=== PATIENT | female | born 1960 | race Caucasian/White ===

== ENCOUNTER 2017-12-04 13:47 | Inpatient (IN) ==
[2017-12-04] MEDS ORDERED: Aspirin 81 MG TAB.CHEW PO ONE (13:49)
[2017-12-04] MEDS ORDERED: Nitroglycerin 0.4 MG TAB.SUBL SL PRN (13:54)
--- NOTE | 2017-12-04 14:06 | Emergency Department Note ---
Disposition Clinical Impression: NSTEMI (non-ST elevated myocardial infarction) Disposition: Admitted As Inpatient Condition: Fair Referrals: Daylin Doe RN [Primary Care Provider] - Forms: ED Satisfaction Letter Time of Disposition: 15:41 General Adult HPI - General Chief complaint: ED Chest Pain Stated complaint: chest pain Time Seen by Provider: 12/04/17 13:49 Source: patient, EMS Mode of arrival: EMS Limitations: no limitations Nursing Notes Reviewed: Yes Vital Signs Reviewed: Yes - History of Present Illness HPI Narrative: 57-year-old female with significant past medical history of hypertension presenting to the emergency Department chief complaint of chest pain. She states just prior to arrival she started having left-sided chest pain. It did not radiate. She denies nausea or diaphoresis. Patient denies any cardiac history or cardiac workup in the past. She was given a full dose aspirin and a nitroglycerin via EMS. She states the nitroglycerin helped relieve her pain but she is still having 7 out of 10 pain at this time. Pain Scale: 7 - Related Data Home Medications Medication Instructions Recorded Confirmed hydrOXYzine pamoate [HydrOXYzine 25 mg PO Q8H PRN 12/04/17 12/04/17 Pamoate] hydroCHLOROthiazide 12.5 mg PO DAILY 12/04/17 12/04/17 [Hydrochlorothiazide] Allergies Allergy/AdvReac Type Severity Reaction Status Date / Time No Known Allergies Allergy Verified 09/26/15 15:41 All systems ED: reviewed and negative except as stated. Cardiovascular: Reports: chest pain Past Medical History - Past Medical History Attestation: Yes The following information was validated with the patient. Medical history: Reports: hypertension Psychiatric history: Reports: anxiety [employer] history: Reports: no [employer] history - Social History Smoking Status: Never smoker Smokeless Tobacco Status: No Alcohol use: Reports: none Drug use: Reports: none Physical Exam - General Limitations: no limitations General appearance: alert, in no apparent distress - Head Head exam: atraumatic, normocephalic, normal inspection - Eye Eye exam: Present: normal appearance. Absent: scleral icterus, conjunctival injection - ENT ENT exam: normal exam, mucous membranes moist - Neck Neck exam: Present: normal inspection, full ROM. Absent: tenderness, meningismus - Chest Chest inspection: Present: normal inspection, symmetric chest wall rise. Absent : tenderness, rash - Respiratory Respiratory exam: Present: normal lung sounds bilaterally. Absent: respiratory distress, wheezes - Cardiovascular Cardiovascular exam: Present: regular rate, normal rhythm, normal heart sounds - Abdominal Exam Abdominal exam: Present: soft, Non-Tender. Absent: distention, guarding, rebound - Extremities Exam Extremities exam: Present: normal inspection, full ROM - Neurological Exam Neurological exam: Present: alert, oriented X3 - Psychiatric Psychiatric exam: Present: normal affect, normal mood - Skin Skin exam: Present: warm, intact Course Course Narrative: 57-year-old female with history of hypertension presenting for chest pain. We will perform chest pain workup at this time including troponin, EKG, chest x- ray. Patient is alert and oriented 3 in the room. She is hypertensive but all other vital signs within normal limits and stable. We will also provide her with nitroglycerin as she is still having chest pain. Disposition pending results. Patient agrees with this plan. - Reevaluation(s) Reevaluation #1: Patient's labs show an elevated troponin of 0.23. We will start a heparin drip along with a nitro drip for the patient's elevated blood pressure at this time. We will plan to admit the patient for an STEMI. All other lab work and radiographs within normal limits. I spoke with the hospitalist on-call Dr. Brock who agrees to accept the patient at this time. I also spoke with the patent leather sorter on-call Dr. Mckeon who agrees with the patient management at this time. Patient is alert and oriented 3 in the room. Hypertensive but otherwise vital signs stable. We will admit the patient at this time. Patient agrees with this plan. Vital Signs Temperature 98.2 F 12/04/17 13:51 Pulse Rate 88 12/04/17 13:51 Respiratory Rate 18 12/04/17 13:51 Blood Pressure 179/110 12/04/17 13:51 O2 Sat by Pulse Oximetry 95 12/04/17 13:51 Temperature 98.2 F 12/04/17 13:51 Pulse Rate 80 12/04/17 15:30 Respiratory Rate 18 12/04/17 15:30 Blood Pressure 210/122 12/04/17 15:30 O2 Sat by Pulse Oximetry 97 12/04/17 15:30 Oxygen Delivery Oxygen Delivery Room Air Medical Decision Making - Lab Data Result diagrams: 12/04/17 13:59 12/04/17 13:59 Lab Results 12/04/17 12/04/17 12/04/17 Range/Units 13:59 13:59 14:57 WBC 9.8 (4.3-11.1) K/mcL RBC 4.35 (3.82-4.97) M/mcL Hgb 12.3 (11.5-15.4) g/dL Hct 38.5 (35.3-44.9) % MCV 88.5 (83.0-100.0) fL MCH 28.3 (28.0-33.3) pg MCHC 31.9 (31.6-35.5) g/dL RDW 14.2 (11.5-14.5) % Plt Count 351 (140-400) K/mcL MPV 10.4 (9.4-12.4) fL Immature Gran % 0.4 (0-4) % Seg Neutrophils % 71.1 % Lymphocytes % 17.5 % Monocytes % 7.8 % Eosinophils % 2.7 % Basophils % 0.5 % Neutrophils # 7.0 (1.6-8.9) K/mcL Lymphocytes # 1.7 (0.6-4.6) K/mcL Monocytes # 0.8 (0.0-1.3) K/mcL Eosinophils # 0.3 (0.0-0.6) K/mcL Basophils # 0.1 (0.0-0.2) K/mcL PT 12.4 H (9.4-12.1) Seconds INR 1.1 APTT 30.0 (26.0-36.0) Seconds Sodium 136 (136-145) mEq/L Potassium 3.7 (3.5-5.1) mEq/L Chloride 102 (98-107) mEq/L Carbon Dioxide 27 (23-29) mEq/L BUN 16 (6-20) mg/dL Creatinine 1.09 (0.60-1.20) mg/dL Est GFR ( Amer) > 60 (> 60) Est GFR (Non-Af Amer) 52 L (> 60) BUN/Creatinine Ratio 15 (6-26) Glucose 153 H (70-105) mg/dL Calculated Osmolality 286 (280-300) Calcium 9.5 (8.6-10.3) mg/dL Troponin I 0.23 H* (< 0.04) ng/mL - EKG Data EKG #1 EKG attestation: Yes I reviewed and interpreted this EKG. EKG results narrative: Sinus rhythm. Left axis deviation. 83 beats for minute. HI interval 182, QRS 93, QTC 422. Nonspecific T-wave abnormalities noted in V1 and V2. Compared to previous EKG completed on 06/14/2017. New T wave abnormalities noted
[2017-12-04 14:30] LABS: Basophils # 0.1 K/mcL (0.0-0.2); Basophils % 0.5 %; Eosinophils # 0.3 K/mcL (0.0-0.6); Eosinophils % 2.7 %; Hematocrit 38.5 % (35.3-44.9); Hemoglobin 12.3 g/dL (11.5-15.4); Immature Granulocytes % 0.4 % (0-4); Lymphocytes # 1.7 K/mcL (0.6-4.6); Lymphocytes % 17.5 %; Mean Corpuscular HGB Conc 31.9 g/dL (31.6-35.5); Mean Corpuscular Hemoglobin 28.3 pg (28.0-33.3); Mean Corpuscular Volume 88.5 fL (83.0-100.0); Mean Platelet Volume 10.4 fL (9.4-12.4); Monocytes # 0.8 K/mcL (0.0-1.3); Monocytes % 7.8 %; Platelet Count 351 K/mcL (140-400); Red Blood Count 4.35 M/mcL (3.82-4.97); Red Cell Distribution Width 14.2 % (11.5-14.5); Segmented Neutrophils % 71.1 %
--- NOTE | 2017-12-04 14:42 | Emergency Department Note ---
START Narrative - START START: I examined this patient and my medical decision-making was reviewed with the Resident Physician. I agree with the documented findings, disposition and treatment plan as described except to the extent set forth below. 57-year-old female presents emergency of for chest pain. Nitro seem to help slightly with her pain. No history of coronary disease. ekg ok compared to previoius vss cp rated 7/10 here afte ems nitro admit for acs rule out
[2017-12-04 14:47] LABS: BUN/Creatinine Ratio 15 (6-26); Blood Urea Nitrogen 16 mg/dL (6-20); Calcium 9.5 mg/dL (8.6-10.3); Carbon Dioxide 27 mEq/L (23-29); Chloride 102 mEq/L (98-107); Glucose 153 mg/dL (70-105); Osmolality,Calculated 286 (280-300); Potassium 3.7 mEq/L (3.5-5.1); Sodium 136 mEq/L (136-145); eGFR For African Americans > 60 (> 60); eGFR For Non-African Americans 52 (> 60)
[2017-12-04 14:55] LABS: Troponin I 0.23 ng/mL (< 0.04)
[2017-12-04] MEDS ORDERED: *HR* Heparin 5,000 UNIT/ML VIAL IVP ONE (14:57)
[2017-12-04] MEDS ORDERED: *HR* Heparin 5,000 UNIT/ML VIAL IVP PRN ×2 (14:57)
[2017-12-04 15:16] LABS: INR 1.1; Prothrombin Time 12.4 Seconds (9.4-12.1)
[2017-12-04] MEDS: Heparin 25,000 UNIT/500 ML D5W 25,000 UNIT/500 ML BAG IVC SCH (15:25)
[2017-12-04] MEDS: Nitroglycerin 25 MG/250 ML INFUS..BTL IVC SCH (16:16)
[2017-12-04] MEDS ORDERED: Naloxone 0.4 MG/ML INJ IVP PRN (16:38)
[2017-12-04] MEDS ORDERED: *HR* HYDROcodone/Acet 5/325 mg TABLET PO PRN (16:55)
--- NOTE | 2017-12-04 23:51 | Event Note ---
Date of Encounter: 12/04/17 Time of Encounter: 18:58 I examined this patient and my medical decision-making was reviewed with the Nurse Practitioner. I agree with the documented findings, disposition and treatment plan as described except to the extent set forth below.
--- NOTE | 2017-12-05 00:47 | Internal Med History&Physical ---
Date of Encounter: 12/04/17 Time of Encounter: 14:30 Assessment and Plan (1) NSTEMI (non-ST elevated myocardial infarction) Current visit: Yes Status: Acute Acute NSTEMI w/acute chest pain that began today as sharp/stabbing left-sided chest pain w/radiation to left arm. Denies previous sx. SOB, dizziness, and weakness accompanied sx. Initial troponin 0.23. Trend x2. Pt. placed on heparin drip and nitro drip in ED per cardiology. Continuous telemetry. Echocardiogram ordered. Aspirin. Lipitor 80 mg now to be followed by 20 mg HS daily. Cardiology consult ordered in ED and I appreciate the consult. NPO at midnight for possible heart cath tomorow. Pt. and f/u labs to be monitored closely. Pt. discussed w/Dr. Brock who agrees w/plan of care. Pt. is high risk for cardiac event based on current sx, elevated troponin, risk factors, and familial hx of AL and HD. Inpatient. (2) Chest pain Current visit: Yes Status: Acute Acute chest pain that began today as sharp/stabbing left-sided chest pain w/ radiation to left arm. Denies previous sx. SOB, dizziness, and weakness accompanied sx. Initial troponin 0.23. Trend x2. Pt. placed on heparin drip and nitro drip in ED per cardiology. Continuous telemetry. Echocardiogram ordered. Aspirin. Lipitor 80 mg now to be followed by 20 mg HS daily. Cardiology consult ordered in ED and I appreciate the consult. Qualifiers: Chest pain type: other chest pain Qualified Code(s): R07.89 - Other chest pain; R07.8 - Other chest pain (3) Dizziness Current visit: Yes Status: Acute Acute dizziness and weakness r/t current chest pain sx. Falls/safety precautions , up with assist, bed rest w/bathroom privileges w/assist only. (4) HTN (hypertension) Current visit: Yes Status: Chronic Hx of chronic HTN. Monitor pt. and VS. Pt. does not currently have HTN medication d/t Rx running out. Pt. placed on nitro drip in ED per cardiology. Hydralazine 10 mg IVP ordered Q6 PRN if SBP >180 and/or DBP >100 and pt. not currently on nitro drip. Qualifiers: Hypertension type: essential hypertension Qualified Code(s): I10 - Essential (primary) hypertension (5) DVT prophylaxis Current visit: Yes Status: Acute Pt. placed on heparin drip d/t current elevated troponin and chest pain. Monitor pt. for signs of bleeding. Internal Medicine - H&P: HPI Chief complaint: Chest pain Admitted From: Emergency Dept Plans for Post Hospital Care: Home History of present illness: Ms. Thornton is a 57 year old female w/PMH of HTN presents from the ED w/chief complaint of chest pain that began today while she was on her way to work and became worse once she was at work. Pt. reports pain as left-sided chest pain w/ radiation to the left arm. Describes pain as sharp and stabbing accompanied by SOB. No alleviating or aggravating factors. Pain was intermittent. EMS gave aspirin and nitro. Pt. reports SOB, dizziness, and weakness but denies previous sx, recent illness, fever, chills, nausea, vomiting, palpitations, headache, changes in vision, abdominal pain, cough, unusual bleeding, diarrhea, constipation, pre-syncope, or syncope. Past Med Surg Social Fam HX - Past Medical History Source: patient, old records reviewed Medical history: hypertension Psychiatric history: anxiety - Social History Smoking Status: Never smoker Smokeless Tobacco Status: No Alcohol use: none Drug use: none Current living situation: Home Activity Level: Independent ambulation, Very active Recent Out of Country Travel Within the Last 8 Weeks: No Exposure or Possible Exposure to Illness During Travel: No - Family History Father Race: Family Member Ethnicity: Non- Living Status: Age at : 60 Cause of : AL Hx Family Cardiac Disorders: Yes ([place], HTN, HLD) Mother Race: Family Member Ethnicity: Non- Living Status: Age at : 80 Cause of : CHF Hx Family Cardiac Disorders: Yes (CHF) Hx Family Endocrine Disorder: Yes (Hypoglycemia) Brother Adopted: Yes Race: Family Member Ethnicity: Non- Living Status: Still Living Sister Race: Family Member Ethnicity: Non- Living Status: Age at : 61 Cause of : HD Hx Family Cardiac Disorders: Yes (CABG, HD) Hx Family Endocrine Disorder: Yes (DM) Internal Medicine - H&P: Meds hydrOXYzine pamoate [HydrOXYzine Pamoate] 25 mg PO Q8H PRN 12/04/17 [History] hydroCHLOROthiazide [Hydrochlorothiazide] 12.5 mg PO DAILY 12/04/17 [History] 3 Allergy/AdvReac Type Severity Reaction Status Date / Time No Known Allergies Allergy Verified 09/26/15 15:41 All Systems PM: A 10-system review of systems was performed and is negative for pertinent findings except as documented above in the HPI. - Constitutional Constitutional: as per HPI, weakness, no chills, no fever(s), no night sweats - EENT Eyes: no change in vision, no discharge, no pain, no photophobia Ears: no ear discharge, no ear pain, no tinnitus Nose, mouth and throat: no dysphagia, no nasal discharge, no neck pain, no sore throat - Breasts Breasts: as per HPI - Cardiovascular Cardiovascular ROS IM: as per HPI, chest pain, dyspnea, dyspnea on exertion, lightheadedness, no diaphoresis, no palpitations, no syncope - Respiratory Respiratory: as per HPI, dyspnea, dyspnea on exertion, no cough, no wheezing, no excessive phlegm production - Gastrointestinal Gastrointestinal: no abdominal pain, no diarrhea, no hematemesis, no hematochezia, no melena, no nausea, no vomiting - Genitourinary Genitourinary: no change in urinary stream, no dysuria, no flank pain, no hematuria Menstruation: as per HPI - Musculoskeletal Musculoskeletal ROS IM: no numbness, no tingling - Integumentary Integumentary IM: no rash, no unusual bruising - Neurological Neurological ROS: as per HPI, dizziness, weakness, no confusion, no convulsions , no focal weakness, no numbness, no tingling, no tremor(s) - Psychiatric Psychiatric: as per HPI, anxiety - Endocrine Endocrine IM: as per HPI - Hematologic/Lymphatic Hematologic/Lymphatic: no easy bruising - Allergic/Immunologic Allergic/Immunologic: as per HPI - Constitutional Vitals: Temp Pulse Resp BP Pulse Ox 98.4 F 91 16 175/86 95 12/04/17 19:56 12/04/17 19:56 12/04/17 19:56 12/04/17 19:56 12/04/17 19:56 General appearance: Present: cooperative, mild distress, A&O X 3, morbidly obese , pleasant, answers questions appropriately - Head Head exam: Present: atraumatic, normocephalic - Eye Eye exam: Present: PERRL, conjuntiva pink, sclera anicteric Pupils: Present: PERRL - ENT ENT exam: Present: normal exam - Neck Neck exam general surgery: Present: normal inspection, supple, trachea midline. Absent: lymphadenopathy - Respiratory Respiratory exam: Present: CTAB. Absent: accessory muscle use, rales, rhonchi, wheezes - Cardiovascular Cardiovascular exam: Present: RRR, +S1, +S2. Absent: diastolic murmur, gallop, rubs, systolic murmur - GI/Abdominal GI/Abdominal exam: Present: normal bowel sounds, soft, no peritoneal signs. Absent: distended, tenderness - Rectal Rectal exam: Present: deferred - Additional comments: exam deferred. - Extremities Exam Extremities exam: Present: warm, radial pulses palpable and symmetrical. Absent : calf tenderness, cyanotic, pedal edema - Back Exam Back exam: Present: normal inspection - Neurological Exam Neurological exam: Present: CN II-XII intact, oriented X3, no focal deficits. Absent: pronater drift, facial droop, speech deficit - Psychiatric Psychiatric exam: Present: normal affect, normal mood - Skin Skin exam: Present: dry, intact Internal Med - H&P Results - Labs CBC & Chem 7: 12/04/17 13:59 12/04/17 13:59 Labs: Cardiac Enzymes 12/04/17 Range/Units 19:55 Troponin I 0.21 H* (< 0.04) ng/mL - EKG Data EKG shows normal: sinus rhythm - EKG Data Prior EKG available for review: yes EKG comments: 12/05/17 00:52 EKG dated 06/14/17 shows sinus rhythm with marked left axis deviation and possible left ventricular hypertrophy. EKG dated 12/04/17 shows sinus rhythm with possible left atrial enlargement, marked left axis deviation, pattern consistent with pulmonary disease, and left ventricular hypertrophy and ST-T change. - Diagnostic Studies Chest x-ray Additional comments: Impressions Chest X-Ray 12/04/17 13:49 IMPRESSION: 1. Cardiomegaly. 2. Calcific atherosclerosis aorta. 3. No focal pulmonary disease evident. D/ / Wilbur Xavier / Wilbur Xavier Interpreting Provider: Wilbur Xavier
[2017-12-05 02:26] LABS: Eosinophils % 3.3 %; Hematocrit 36.7 % (35.3-44.9); Hemoglobin 11.7 g/dL (11.5-15.4); Immature Granulocytes % 0.4 % (0-4); Mean Corpuscular HGB Conc 31.9 g/dL (31.6-35.5); Mean Corpuscular Hemoglobin 28.1 pg (28.0-33.3); Mean Platelet Volume 10.7 fL (9.4-12.4); Monocytes % 7.7 %; Platelet Count 312 K/mcL (140-400); Red Blood Count 4.17 M/mcL (3.82-4.97); Red Cell Distribution Width 14.4 % (11.5-14.5); Segmented Neutrophils % 64.1 %
[2017-12-05 02:27] LABS: Basophils # 0.1 K/mcL (0.0-0.2); Basophils % 0.5 %; Eosinophils # 0.3 K/mcL (0.0-0.6); Lymphocytes # 2.3 K/mcL (0.6-4.6); Monocytes # 0.7 K/mcL (0.0-1.3); Neutrophils # 6.1 K/mcL (1.6-8.9)
[2017-12-05 02:30] LABS: INR 1.2; Prothrombin Time 12.7 Seconds (9.4-12.1)
[2017-12-05 02:44] LABS: Alanine Aminotransferase 10 Units/L (7-52); Albumin 3.5 g/dL (3.5-5.7); Alkaline Phosphatase 60 Units/L (34-104); Aspartate Amino Transferase 13 Units/L (13-39); BUN/Creatinine Ratio 17 (6-26); Bilirubin,Total 0.3 mg/dL (0.3-1.0); Blood Urea Nitrogen 18 mg/dL (6-20); Calcium 9.2 mg/dL (8.6-10.3); Carbon Dioxide 25 mEq/L (23-29); Chloride 103 mEq/L (98-107); Chol/HDL Ratio 4.6 (0-4.9); Cholesterol 194 mg/dL (< 200); Globulin 3.5 g/dL (2.4-3.5); Glucose 203 mg/dL (70-105); HDL Cholesterol 42 mg/dL (40-59); LDL Cholesterol,Calculated 116 mg/dL (0-99); Magnesium 1.8 mg/dL (1.6-2.6); Osmolality,Calculated 292 (280-300); Potassium 3.7 mEq/L (3.5-5.1); Sodium 137 mEq/L (136-145); Triglycerides 180 mg/dL (< 150); eGFR For African Americans > 60 (> 60); eGFR For Non-African Americans 55 (> 60)
[2017-12-05] MEDS: Aspirin Enteric Coated 81 MG Tablet PO SCH (08:15)
--- NOTE | 2017-12-05 09:14 | Cardiology Consult Note ---
<Cathy Cai - Last Filed: 12/05/17 11:05> Date of Encounter: 12/05/17 Time of Encounter: 09:00 Assessment and Plan (1) NSTEMI (non-ST elevated myocardial infarction) Current Visit: Yes Status: Acute NSTEMI. troponin 0.23 0.23 0.21 EKG- NSR, HR 83 LDL and Triglycerides elevated Risk factors including HTN, family history [place] Patient denies chest pain at this time. BP 180/92 Plan: -plan for cath today after better BP control with systolic in 140s. -continue heparin drip, lipitor, asa -started coreg, continue hydralazine PRN -recommend titrating nitro drip for better BP control -Echo pending -NPO, A1C pending -possible cath today (2) Chest pain Current Visit: Yes Status: Acute Typical chest pain. Began while getting ready for work. Left side of chest. Relieved with nitro given in ED. Numbness of left upper arm. Admitted shortness of breath, blurry vision, weakness. Denied syncope, nausea. Denies chest pain currently. see plan above Qualifiers: Chest pain type: other chest pain Qualified Code(s): R07.89 - Other chest pain; R07.8 - Other chest pain (3) Hypertension Current Visit: No Status: Acute history of hypertension taking hydrochlorthiazide. bp elevated 180/90 started coreg titrate nitro for better BP control continue hydralazine PRN Qualifiers: Hypertension type: essential hypertension Qualified Code(s): I10 - Essential (primary) hypertension Discussion w patient/family: The assessment and plan as outlined above was discussed with the patient and/or family members who expressed understanding and agreement. All questions were answered. Thank you for involving us in the care of your patient. Please call with any questions. History of Present Illness Consult date: 12/05/17 Requesting physician: Freda Jacobsen Consult reason: NSTEMI Chief complaint: chest pain History of present illness: Ms. Thornton is a 57 year old female PMH HTN and anxiety who presented to [facility] complaining of chest pain that began as she was getting ready for work. She described it as sharp stabbing pain on the left side of her chest without radiation. While driving to work her vision became blurry. At work she became weak, left upper arm numb, short of breath. EMS was called and she was taken to [facility]. She stated she has never had this before. She is a non smoker but her father had an [place] at 50s and sister [place] with CABG at 40s. She denied headache, cough, nausea, diaphoresis, diarrhea, recent sickness. In ED was NSTEMI, troponin 0.23. EKG sinus rhythm, HR 83. Started on heparin and nitro drip. Past Med Surg Social Fam HX - Past Medical History Medical history: hypertension Psychiatric history: anxiety - Past Surgical History Surgical History: hysterectomy - Social History Smoking Status: Never smoker Smokeless Tobacco Status: No Alcohol use: none Drug use: none - Family History Father Race: Family Member Ethnicity: Non- Living Status: Age at : 60 Cause of : [place] Hx Family Cardiac Disorders: Yes ([place], HTN, HLD) Mother Race: Family Member Ethnicity: Non- Living Status: Age at : 80 Cause of : CHF Hx Family Cardiac Disorders: Yes (CHF) Hx Family Endocrine Disorder: Yes (Hypoglycemia) Brother Adopted: Yes Race: Family Member Ethnicity: Non- Living Status: Still Living Sister Race: Family Member Ethnicity: Non- Living Status: Age at : 61 Cause of : HD Hx Family Cardiac Disorders: Yes (CABG, HD) Hx Family Endocrine Disorder: Yes (DM) Medications and Allergies hydrOXYzine pamoate [HydrOXYzine Pamoate] 25 mg PO Q8H PRN 12/04/17 [History] hydroCHLOROthiazide [Hydrochlorothiazide] 12.5 mg PO DAILY 12/04/17 [History] 3 Allergy/AdvReac Type Severity Reaction Status Date / Time No Known Allergies Allergy Verified 09/26/15 15:41 All Systems Review: The remainder of the systems were reviewed and are negative - Constitutional Constitutional: weakness, no chills, no fever(s), no headache(s) - Cardiovascular Cardiovascular: chest pain at rest, lightheadedness, no diaphoresis, no orthopnea, no palpitations, no paroxysmal nocturnal dyspnea, no syncope - Respiratory Respiratory: dyspnea, no cough - Gastrointestinal Gastrointestinal: no abdominal pain, no diarrhea, no melena, no nausea - Integumentary Integumentary: no erythema - Neurological Neurological: no abnormal speech, no loss of vision, no syncope - Psychiatric Psychiatric: anxiety Physical Examination Vital Signs, Last 4 Hours Temp Pulse Resp BP Pulse Ox 12/05/17 06:50 97.6 F 81 18 180/92 93 General: Conversant, No Apparent Distress HEENT: Atraumatic, Mucus Membranes Moist Neck: No JVD Cardiac: Reg Rate and Rhythm, Normal S1 and S2 Lungs: Normal Breath Sounds, No Wheeze, Rales, Rhonchi Neuro: Alert and responsive Abdomen: Soft, Non-Tender Skin: No rashes noted on visualized skin Extremities: No Edema Results 12/05/17 02:01 12/05/17 02:01 Lab Results 12/04/17 12/04/17 12/05/17 19:55 21:33 02:01 WBC Hgb Hct Plt Count INR APTT 52.9 H D Sodium Potassium Chloride Carbon Dioxide BUN Creatinine Glucose Calcium Magnesium Total Bilirubin AST ALT Alkaline Phosphatase Troponin I 0.21 H* 0.21 H* 12/05/17 12/05/17 12/05/17 02:01 02:01 02:01 WBC 9.5 Hgb 11.7 Hct 36.7 Plt Count 312 INR 1.2 APTT Sodium 137 Potassium 3.7 Chloride 103 Carbon Dioxide 25 BUN 18 Creatinine 1.03 Glucose 203 H Calcium 9.2 Magnesium 1.8 Total Bilirubin 0.3 AST 13 ALT 10 Alkaline Phosphatase 60 Troponin I 12/05/17 04:54 WBC Hgb Hct Plt Count INR APTT 65.0 H Sodium Potassium Chloride Carbon Dioxide BUN Creatinine Glucose Calcium Magnesium Total Bilirubin AST ALT Alkaline Phosphatase Troponin I Consult Discharge Plan - Plan Referrals: Daylin Doe RN [Primary Care Provider] - <Ayse Mckeon - Last Filed: 12/05/17 13:21> Date of Encounter: 12/05/17 - Attending Attestation I examined this patient and my medical decision-making was reviewed with the Resident Physician. I agree with the documented findings, disposition and treatment plan as described except to the extent set forth below. 57 YOF with h/o HTN poorly controlled presents with SBP >200mmHg describes chest pain and SOB. Initial trops elevated at .23 flat at this time on Heparin and IV nitro. Patient would be a candidate for LHC once her BP is better controlled. SBP of 140 mmHg would be ideal. Will titrate IV nitro and PRN IV BB' s. Assessment and Plan Discussion w patient/family: The assessment and plan as outlined above was discussed with the patient and/or family members who expressed understanding and agreement. All questions were answered. Thank you for involving us in the care of your patient. Please call with any questions. History of Present Illness History of present illness: Ms. Thornton is a 57 year old female All Systems Review: The remainder of the systems were reviewed and are negative Physical Examination Vital Signs, Last 4 Hours Temp Pulse Resp BP Pulse Ox 12/05/17 11:40 163 F H 81 18 182/96 94 Results 12/05/17 02:01 12/05/17 02:01 Lab Results 12/04/17 12/04/17 12/05/17 19:55 21:33 02:01 WBC Hgb Hct Plt Count INR APTT 52.9 H D Sodium Potassium Chloride Carbon Dioxide BUN Creatinine Glucose Calcium Magnesium Total Bilirubin AST ALT Alkaline Phosphatase Troponin I 0.21 H* 0.21 H* 12/05/17 12/05/17 12/05/17 02:01 02:01 02:01 WBC 9.5 Hgb 11.7 Hct 36.7 Plt Count 312 INR 1.2 APTT Sodium 137 Potassium 3.7 Chloride 103 Carbon Dioxide 25 BUN 18 Creatinine 1.03 Glucose 203 H Calcium 9.2 Magnesium 1.8 Total Bilirubin 0.3 AST 13 ALT 10 Alkaline Phosphatase 60 Troponin I 12/05/17 12/05/17 04:54 10:56 WBC Hgb Hct Plt Count INR APTT 65.0 H 64.2 H Sodium Potassium Chloride Carbon Dioxide BUN Creatinine Glucose Calcium Magnesium Total Bilirubin AST ALT Alkaline Phosphatase Troponin I
[2017-12-05 09:21] LABS: Estimated Average Glucose 169 mg/dl; Hemoglobin A1C 7.5 %
[2017-12-05] MEDS ORDERED: *HR* Metoprolol 5 MG/5 ML VIAL IVP ONE (11:41)
[2017-12-05] MEDS ORDERED: *HR* Labetalol 20 MG/4 ML SYRINGE IVP ONE (11:45)
[2017-12-05] MEDS: Heparin 25,000 UNIT/500 ML D5W 25,000 UNIT/500 ML BAG IVC SCH (12:05)
[2017-12-05] MEDS ORDERED: Nitroglycerin 1,000 MCG/10 ML VIAL IV ONE (12:42)
[2017-12-05] MEDS ORDERED: ISOVUE-370 200 ML INFUS..BTL IV ONE (12:42)
[2017-12-05] MEDS ORDERED: 0.9 % Sodium Chloride 1,000 ML ONE (12:42)
[2017-12-05] MEDS ORDERED: *HR* Heparin 10,000 UNIT/10 ML VIAL ONE (12:42)
[2017-12-05] MEDS ORDERED: Heparin 1,000 UNITS/500 mL 500 ML ONE (12:42)
[2017-12-05] MEDS ORDERED: *HR* Dextrose 50 % in Water (Syg) 50 ML SYRINGE IVP PRN (15:18)
[2017-12-05] MEDS ORDERED: Dextrose Gel 15 GM/37.5 ML TUBE PO PRN ×2 (15:18)
[2017-12-05] MEDS ORDERED: D5% in Water 1,000 ML IVC PRN (15:18)
[2017-12-05] MEDS: Insulin LISPRO 300 UNITS/3 ML VIAL SQ SCH ×2 (17:46→20:40)
[2017-12-05] MEDS: Nitroglycerin 25 MG/250 ML INFUS..BTL IVC SCH (20:45)
--- NOTE | 2017-12-05 22:55 | Internal Med Progress Note ---
Date of Encounter: 12/05/17 Time of Encounter: 22:52 - Assessment and plan (1) NSTEMI (non-ST elevated myocardial infarction) Current Visit: Yes Status: Acute Assessment and plan: Chest pain improved. Cardiology consulted; appreciate input. Plan for cath after BP controlled. Continue aspirin, lipitor, and nitro drip. Patient does not have insurance, so SW and CM consulted to see how patient can afford medications at discharge. (2) Chest pain Current Visit: Yes Status: Resolved Assessment and plan: Resolved. Chest pain controlled on nitro drip at this time. Qualifiers: Chest pain type: other chest pain Qualified Code(s): R07.89 - Other chest pain; R07.8 - Other chest pain (3) Dizziness Current Visit: Yes Status: Resolved Assessment and plan: Resolved. No further episodes. (4) HTN (hypertension) Current Visit: Yes Status: Chronic Assessment and plan: Worsened. Continue nitro drip. Continue home medications. Cardiology consulted; appreciate input. Coreg started today. Hydralazine added PRN. Continue to monitor vitals closely. Qualifiers: Hypertension type: essential hypertension Qualified Code(s): I10 - Essential (primary) hypertension (5) Hyperglycemia Current Visit: Yes Status: Acute Assessment and plan: No diagnosis of DM. A1C = 7.5. BG in 200s. Start accuchecks and low dose SSI QID AC/HS. (6) DVT prophylaxis Current Visit: Yes Status: Acute - Time Spent With Patient less than 15 minutes - Subjective Interval history: Patient had no acute events overnight. Nursing staff reports increased BP this AM. Patient denies chest pain or SOB at this time. She has no new complaints. - Constitutional Vitals: Temp Pulse Resp BP Pulse Ox 98.2 F 83 19 151/75 90 12/05/17 19:37 12/05/17 19:37 12/05/17 19:37 12/05/17 19:37 12/05/17 19:37 General appearance: Present: cooperative, A&O X 3, morbidly obese, pleasant, no acute distress, answers questions appropriately - Respiratory Respiratory exam: Present: CTAB. Absent: accessory muscle use, rales, rhonchi, wheezes Additional comments: Normal WOB - Cardiovascular Cardiovascular exam: Present: RRR, +S1, +S2. Absent: diastolic murmur, gallop, rubs, systolic murmur Additional comments: No BLE edema - GI/Abdominal GI/Abdominal exam: Present: normal bowel sounds, soft. Absent: distended, hepatomegaly, mass, splenomegaly, tenderness - Psychiatric Psychiatric exam: Present: normal affect, normal mood. Absent: anxious, depressed - Skin Skin exam: Present: dry, intact, warm. Absent: cyanosis, rash Internal Medicine: Result - Labs CBC & Chem 7: 12/05/17 02:01 12/05/17 02:01 Labs: Short CBC 12/05/17 Range/Units 02:01 WBC 9.5 (4.3-11.1) K/mcL Hgb 11.7 (11.5-15.4) g/dL Hct 36.7 (35.3-44.9) % Plt Count 312 (140-400) K/mcL Neutrophils # 6.1 (1.6-8.9) K/mcL BMP 12/05/17 02:01 Sodium 137 Potassium 3.7 Chloride 103 Carbon Dioxide 25 BUN 18 Creatinine 1.03 Glucose 203 H Calcium 9.2 Cardiac Enzymes 12/05/17 Range/Units 02:01 Troponin I 0.21 H* (< 0.04) ng/mL Liver Function 12/05/17 Range/Units 02:01 Total Bilirubin 0.3 (0.3-1.0) mg/dL AST 13 (13-39) Units/L ALT 10 (7-52) Units/L Alkaline Phosphatase 60 (34-104) Units/L Albumin 3.5 (3.5-5.7) g/dL - ABG Interpretation ABG results: PT/INR, D-dimer PT 12.7 Seconds (9.4-12.1) H 12/05/17 02:01 - Impressions Impressions Echocardiogram 12/05/17 16:37 Impressions: Blood pressure 180/92 mmHg during testing. LVEF 60%. Mild left ventricular diastolic dysfunction. Normal right ventricular structure and function. Mild mitral regurgitation. No pulmonary hypertension. Findings: Study Quality * Technically adequate exam. ECG Findings * Normal sinus rhythm. Left Ventricle * LVEF 60%. * Moderate concentric left ventricular hypertrophy. * Mild left ventricular diastolic dysfunction. Right Ventricle * Normal right ventricular structure and function. Left Atrium * Normal left atrial size. Right Atrium * Normal right atrial size. Aortic Valve * No aortic regurgitation. * Aortic valve not well visualized. * No aortic stenosis. Mitral Valve * Normal mitral valve structure. * No mitral stenosis. * Mild mitral regurgitation. Tricuspid Valve * No tricuspid regurgitation. * Normal tricuspid valve structure. Pulmonic Valve * Pulmonic valve is not well visualized. * No pulmonic stenosis. * No pulmonic regurgitation. Pulmonary Artery * Pulmonary artery not well visualized. Aorta * Normally sized aortic root. * Ascending aorta not well visualized. Pericardium * There is no pericardial effusion present. Interatrial Septum * No evidence of PFO by color Doppler. IVC * The IVC is not dilated. Consult Discharge Plan - Plan Referrals: Daylin Doe RN [Primary Care Provider] -
[2017-12-06] MEDS: Acetaminophen 325 MG TABLET PO PRN (00:02)
[2017-12-06 04:08] LABS: Basophils # 0.1 K/mcL (0.0-0.2); Basophils % 0.4 %; Eosinophils # 0.3 K/mcL (0.0-0.6); Eosinophils % 2.5 %; Hematocrit 34.6 % (35.3-44.9); Immature Granulocytes % 0.4 % (0-4); Lymphocytes # 1.9 K/mcL (0.6-4.6); Lymphocytes % 16.2 %; Mean Corpuscular HGB Conc 31.8 g/dL (31.6-35.5); Mean Corpuscular Hemoglobin 28.1 pg (28.0-33.3); Mean Corpuscular Volume 88.5 fL (83.0-100.0); Mean Platelet Volume 10.8 fL (9.4-12.4); Monocytes # 1.1 K/mcL (0.0-1.3); Monocytes % 9.2 %; Neutrophils # 8.1 K/mcL (1.6-8.9); Platelet Count 321 K/mcL (140-400); Red Blood Count 3.91 M/mcL (3.82-4.97); Red Cell Distribution Width 14.6 % (11.5-14.5); Segmented Neutrophils % 71.3 %
[2017-12-06 04:31] LABS: Albumin 3.5 g/dL (3.5-5.7); Bilirubin,Total 0.5 mg/dL (0.3-1.0); Globulin 3.6 g/dL (2.4-3.5); Potassium 3.8 mEq/L (3.5-5.1); Total Protein 7.1 g/dL (6.4-8.9)
[2017-12-06] MEDS: Insulin LISPRO 300 UNITS/3 ML VIAL SQ SCH ×4 (07:49→21:16)
[2017-12-06] MEDS: Aspirin Enteric Coated 81 MG Tablet PO SCH (07:51)
--- NOTE | 2017-12-06 09:50 | Cardiology Progress Note ---
<Cathy Cai - Last Filed: 12/06/17 10:33> Date of Encounter: 12/06/17 Time of Encounter: 09:00 Assessment and Plan (1) NSTEMI (non-ST elevated myocardial infarction) Current Visit: Yes Status: Acute NSTEMI. troponin 0.23 0.23 0.21 EKG- NSR, HR 83 LDL and Triglycerides elevated Echo- LVEF= 60%, mild diastolic dysfunction, mild mitral regurgitation, no pulmonary hypertension Risk factors including HTN, family history IN Patient denies chest pain at this time. Plan: -plan for cath today since better BP controlled -continue heparin drip, lipitor, asa -continue coreg, hydralazine, nitro drip -NPO (2) Chest pain Current Visit: Yes Status: Resolved Typical chest pain. Began while getting ready for work. Left side of chest. Relieved with nitro given in ED. Numbness of left upper arm. Admitted shortness of breath, blurry vision, weakness. Denied syncope, nausea. Denies chest pain currently. see plan above Qualifiers: Chest pain type: other chest pain Qualified Code(s): R07.89 - Other chest pain; R07.8 - Other chest pain (3) Hypertension Current Visit: No Status: Acute history of hypertension taking hydrochlorthiazide. bp 147/80 -continue coreg, nitro, hydralazine PRN Qualifiers: Hypertension type: essential hypertension Qualified Code(s): I10 - Essential (primary) hypertension Discussion w patient/family: The assessment and plan as outlined above was discussed with the patient and/or family members who expressed understanding and agreement. All questions were answered. Thank you for involving us in the care of your patient. Please call with any questions. Subjective Principal diagnosis: NSTEMI Interval history: Awaiting heart cath today since BP is better controlled. She denies chest pain at this time. Objective Vital Signs, Last 4 Hours Temp Pulse Resp BP Pulse Ox 12/06/17 08:29 78 156/92 12/06/17 07:00 97.9 F 69 18 165/71 97 General: Conversant, No Apparent Distress HEENT: Mucus Membranes Moist Neck: No JVD Cardiac: Reg Rate and Rhythm, Normal S1 and S2 Lungs: Normal Breath Sounds Neuro: Alert and responsive Abdomen: Soft, Non-Tender Skin: No rashes noted on visualized skin Extremities: No Edema Results 12/06/17 03:33 12/06/17 03:33 Lab Results 12/05/17 12/06/17 12/06/17 10:56 03:33 03:33 WBC 11.4 H Hgb 11.0 L Hct 34.6 L Plt Count 321 APTT 64.2 H Sodium 135 L Potassium 3.8 Chloride 103 Carbon Dioxide 24 BUN 17 Creatinine 1.14 Glucose 168 H Calcium 9.0 Total Bilirubin 0.5 AST 11 L ALT 10 Alkaline Phosphatase 55 Consult Discharge Plan - Plan Referrals: Daylin Doe RN [Primary Care Provider] - <Ayse Mckeon - Last Filed: 12/06/17 12:01> Date of Encounter: 12/06/17 Assessment and Plan (1) NSTEMI (non-ST elevated myocardial infarction) Current Visit: Yes Status: Acute NSTEMI. troponin 0.23 0.23 0.21 EKG- NSR, HR 83 LDL and Triglycerides elevated Echo- LVEF= 60%, mild diastolic dysfunction, mild mitral regurgitation, no pulmonary hypertension Risk factors including HTN, family history IN Patient denies chest pain at this time. Plan: -plan for cath today since better BP controlled -continue heparin drip, lipitor, asa -continue coreg, hydralazine, nitro drip -NPO I examined this patient and my medical decision-making was reviewed with the Resident Physician. I agree with the documented findings, disposition and treatment plan as described except to the extent set forth below. NSTEMI now with better controlled BP, proceed with [facility] Discussion w patient/family: The assessment and plan as outlined above was discussed with the patient and/or family members who expressed understanding and agreement. All questions were answered. Thank you for involving us in the care of your patient. Please call with any questions. Objective Vital Signs, Last 4 Hours Pulse BP 12/06/17 08:29 78 156/92 Results 12/06/17 03:33 12/06/17 03:33 Lab Results 12/06/17 12/06/17 03:33 03:33 WBC 11.4 H Hgb 11.0 L Hct 34.6 L Plt Count 321 Sodium 135 L Potassium 3.8 Chloride 103 Carbon Dioxide 24 BUN 17 Creatinine 1.14 Glucose 168 H Calcium 9.0 Total Bilirubin 0.5 AST 11 L ALT 10 Alkaline Phosphatase 55
[2017-12-06] MEDS: Heparin 25,000 UNIT/500 ML D5W 25,000 UNIT/500 ML BAG IVC SCH (10:27)
[2017-12-06] MEDS ORDERED: 0.9 % Sodium Chloride 1,000 ML ONE ×2 (10:40→13:06)
[2017-12-06] MEDS ORDERED: Heparin 1,000 UNITS/500 mL 500 ML ONE (10:41)
[2017-12-06] MEDS ORDERED: *HR* Heparin 10,000 UNIT/10 ML VIAL ONE (10:41)
[2017-12-06] MEDS ORDERED: ISOVUE-370 200 ML INFUS..BTL IV ONE ×2 (10:41→13:06)
--- NOTE | 2017-12-06 12:23 | Pre-Sedation Evaluation ---
Pre-sedation evaluation - Pre-sedation checklist Date of procedure: 12/06/17 Recent Vitals: Last Vital Signs Temp 97.9 F 12/06/17 07:00 Pulse 78 12/06/17 08:29 Resp 18 12/06/17 07:00 BP 156/92 12/06/17 08:29 Pulse Ox 97 12/06/17 07:00 H&P (including ROS) documented in medical record: Yes Previous reaction to sedatives/anesthetics: No Dietary Status: NPO after Midnight Airway Assessment: Patient can open mouth completely, TMJ function normal Dentition: No loose teeth or bridges Possible difficult airway: No ASA Classification *see protocol: CLASS III-Severe systemic disease Plan of Care: Pt appropriate candidate for procedure/moderate/conscious sedation , Risks/benefits of procedure/sedation discussed w/ patient/family, If not NPO; Risk of intake outweiged by necessity to perform procedure
[2017-12-06] MEDS ORDERED: *HR* Midazolam HCl 2 MG/2 ML VIAL ONE (12:26)
[2017-12-06] MEDS ORDERED: Nitroglycerin Spray 4.9 GM BOTTLE ONE (12:48)
[2017-12-06] MEDS ORDERED: Nitroglycerin 1,000 MCG/10 ML VIAL IV ONE (12:55)
[2017-12-06] MEDS ORDERED: *HR* Bivalirudin 250 MG VIAL IVC ONE (12:55)
[2017-12-06] MEDS ORDERED: *HR* Ticagrelor 90 MG TABLET ONE (13:51)
--- NOTE | 2017-12-06 14:03 | Invasive Diagnostic Lab Proc ---
Name: Racheal Thornton Date of Study: 12/06/2017 Date: 1960 Ht: 64.2in Medical Record#: [id number] Age: 57 Wt: 238.10lb Gender: Female BSA: 2.11 Order #: [id number] BMI: 40.65 Physicians Procedure Physician: Brandon Cervantes DO Referring MD: Referring MD: Staff Name Position Time In Sites, Kenia RT (R) Monitor 12:29 PM Dimas Heredia RN Cruise Counselor 12:29 PM Bisi Lewis RT (R) Scrub 12:29 PM Indications Indication Non-Stemi Procedures Performed Procedure L HRT ARTERY/VENTRICLE ANGIO PRQ CARD [place] STENT W/ANGIO 1 VSL PRQ CARD [place] STENT W/ANGIO 1 VSL PRQ CARD STENT W/ANGIO ADDL Pre-Procedure Checklist Informed consent is complete signed and on chart. H&P is on chart. ID band is on and ID verified with patient. Patient NPO for procedure The procedure was described for the patient and questions were answered. Blood Pressure: 183/96 ECG is on chart. Rhythm: NSR Plan of Care Patient will tolerate the procedure without complications. Adequate level of comfort will be maintained. Hemodynamics will remain stable Patient will recover from procedure without complications. Respiratory function will be maintained. Cardiac rhythm will remain stable. Patient temperature will be maintained. Patient and/or family have verbalized understanding of the procedure. Patient Education Chief Complaint/Reason for Test: Cardiac Cath Developmental Category: Adult (18-64 years) Developmentally Appropriate for Age: Yes Learning Barriers: None Education Needs: Procedure Education Method: Verbal Information Taught: Cardiac Cath Educational Evaluation: Able to repeat information Intravenous Access Time IV Size Location DC'd Fluid/Drip Rate Units RN 20g 1 /" Patent On Arrival Lt Hand 0.9NaCl 25 ml/hr Dimas Heredia RN Allergies No Known Allergies Vital Signs Time BP (mmHg) HR (bpm) O2 Sat. RR (bpm) LOC 12:30 PM / % 4 = Oriented but drowsy 12:30 PM / % 4 = Oriented but drowsy 12:46 PM / % 4 = Oriented but drowsy 01:02 PM / % 4 = Oriented but drowsy 01:17 PM / % 4 = Oriented but drowsy Procedural Medications Time Medication Dose Units Method Given By 12:30 PM Oxygen 2 L/min nasal cannula Yan, Dimas RN 12:30 PM Versed 2 mg Intravenous Dimas Heredia RN 12:41 PM Lidocaine 2% 18 ml Subcutaneous Brandon Cervantes DO 12:48 PM Nitroglycerin 400 mcg Orally Dimas Heredia RN 12:57 PM Angiomax 0.75mg/kg bolus: 16.5 ml Intravenous Dimas Heredia RN 12:57 PM Aggrastat 12.5mg/250ml 38.5 ml Intravenous Dimas Heredia RN 01:30 PM Nitroglycerin 100 mcg Intracoronary Brandon Cervantes DO 01:51 PM Brilinta 180 mg Orally Dimas Heredia RN ASA Classification: CLASS II- Mild systemic disease (i.e. well-controlled diabetes, hypertension, asthma, cigarette smoking) Yifan Score Preprocedure Postprocedure Activity 2- Moves 4 extremities sustained head lift Activity 2- Moves 4 extremities sustained head lift Circulation 2- SBP +/= 20 points of pre-anesthetic level Circulation 2- SBP +/= 20 points of pre-anesthetic level Consciousness 2- Awake and alert oriented x 3 Consciousness 2- Awake and alert oriented x 3 O2 Saturation 2- Able to maintain O2 satruation of 92% on room air O2 Saturation 2- Able to maintain O2 satruation of 92% on room air Respiratory 2- Able to deep breathe and cough well Respiratory 2- Able to deep breathe and cough well Total Score 10 Total Score 10 Contrast Agent: Isovue Diagnostic Contrast: 210 ml Total Contrast: 210 ml Fluoro Dose: 1825 mGy Procedure Log Time Note Enter By 12:29 PM 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 tsites 12:30 PM Procedure start 12:30 tsites 12:30 PM Hair removed from procedure site in holding area using clippers. Right groin prepped with Chloraprep by Bisi Lewis (R), then patient was draped. Skin intact. tsites 12:30 PM Time: 12:30 Oxygen on at 2 L/min per nasal cannula by Dimas Heredia RN tsites 12:30 PM Time: 12:30 Versed 2 mg Intravenous Given by Dimas Heredia RN tsites 12:30 PM Time: 12:30 Patient comfortable and pain free: Yes tsites 12:30 PM Time: 12:30LOC: 4 = Oriented but drowsy tsites 12:30 PM Clinical Presentation: Non-STEMI tsites 12:41 PM Time: 12:41 18 ml Lidocaine 2% to right groin Subcutaneous Given by Brandon Cervantes DO tsites 12:43 PM Micro-Introducer Kit utilized for sheath placement tsites 12:44 PM Access obtained by percutaneous puncture. 6Fr 10cm Terumo [place] sheath placed in right Femoral artery. [id number] tsites 12:46 PM Time: 12:30LOC: 4 = Oriented but drowsy tsites 12:46 PM Time: 12:30 Patient comfortable and pain free: Yes tsites 12:46 PM 6Fr FR 4 catheter inserted over the wire DN tsites 12:46 PM Catheter selectively placed in left ventricle tsites 12:46 PM Bolus angiogram of left Ventricle complete: hand injection tsites 12:48 PM RCA angiography performed in multiple views. tsites 12:48 PM Time: 12:48 Nitroglycerin 400 mcg Orally Given by Dimas Heredia RN tsites 12:48 PM wire reinserted catheter removed tsites 12:49 PM 6Fr FL 4 catheter inserted over the wire [facility] tsites 12:49 PM LCA angiography performed in multiple views. tsites 12:53 PM wire reinserted catheter removed tsites 12:54 PM Catheter removed tsites 12:55 PM Lesion found in Mid LAD. Pre Stenosis: 80 Pre TYREE Flow: tsites 12:55 PM Lesion found in Distal LAD. Pre Stenosis: 90 Pre TYREE Flow: tsites 12:55 PM Lesion found in 1st Diagonal. Pre Stenosis: 99 Pre TYREE Flow: tsites 12:55 PM Lesion found in Proximal Circumflex. Pre Stenosis: 60 Pre TYREE Flow: tsites 12:55 PM Lesion found in Ramus. Pre Stenosis: 100 Pre TYREE Flow: tsites 12:55 PM Mid/Distal Left Anterior Descending Coronary Artery and diagonal branches with 99% stenosis. If graft is supplying this area, 0 % stenosis tsites 12:56 PM Circumflex, Obtuse Marginal, Left Posterior Descending, and Left Posterolateral Coronary Arteries with 60 % stenosis. If graft is supplying this area, 0 % stenosis tsites 12:56 PM Ramus with 100% stenosis. If graft is supplying this area, 0 % stenosis tsites 12:56 PM PCI Status Urgent tsites 12:56 PM PCI Indication: PCI for high risk Non-STEMI or unstable angina tsites 12:56 PM 6Fr JL4 Runway guide catheter was used to cannulate the PCI vessel successfully. reused? No tsites 12:56 PM .014 ChoICE PT Extra Support 300cm guide wire across target lesion- successful. reused? No tsites 12:56 PM Inflation device was opened. tsites 12:57 PM Time: 12:57 Angiomax 0.75mg/kg bolus: 16.5 ml Intravenous Given by Dimas Heredia RN [place] pump tsites 12:57 PM Time: 12:57 Aggrastat 12.5mg/250ml 38.5 ml Intravenous Given by Dimas Heredia RN [place] pump tsites 01:00 PM Guide wire removed intact. tsites 01:00 PM 6Fr XB LAD 3.5 [place] Bright-Tip guide catheter was used to cannulate the PCI vessel successfully. reused? No tsites 01:02 PM Time: 12:46 Patient comfortable and pain free: Yes tsites 01:02 PM Time: 12:46LOC: 4 = Oriented but drowsy tsites 01:06 PM guide wire reinserted tsites 01:07 PM 2.0 mm x 15 mm Emerge Monorail balloon across target lesion- successful. reused? No tsites 01:12 PM Balloon inflated @ 14 carmen for 19 seconds tsites 01:12 PM Balloon catheter removed intact. tsites 01:16 PM 2.25mm x 20mm Synergy drug-eluting stent across target lesion- successful Lot #[id number] tsites 01:16 PM Stent deployed @ 16 carmen for 22 seconds ramus tsites 01:16 PM Stent delivery system removed intact. tsites 01:17 PM Time: 13:02LOC: 4 = Oriented but drowsy tsites 01:17 PM Time: 13:02 Patient comfortable and pain free: Yes tsites 01:20 PM wire repositioned into the diag tsites 01:21 PM 2.25mm x 16mm Synergy drug-eluting stent across target lesion- successful Lot #[id number] tsites 01:22 PM .014 ChoICE PT Extra Support 300cm guide wire across target lesion- successful. reused? No tsites 01:23 PM Stent deployed @ 16 carmen for 18 seconds diag tsites 01:23 PM Stent delivery system removed intact. tsites 01:28 PM 2.5mm x 24mm Synergy drug-eluting stent across target lesion- successful Lot #[id number] tsites 01:28 PM Stent deployed @ 16 carmen for 19 seconds lad tsites 01:29 PM Stent delivery system removed intact. tsites 01:30 PM Time: 13:30 Nitroglycerin 100 mcg Intracoronary Given by Brandon Cervantes DO tsites 01:32 PM Time: 13:17 Patient comfortable and pain free: Yes tsites 01:32 PM Time: 13:17LOC: 4 = Oriented but drowsy tsites 01:33 PM 2.25mm x 12mm Synergy drug-eluting stent across target lesion- successful Lot #[id number] tsites 01:36 PM Stent deployed @ 14 carmen for 18 seconds tsites 01:36 PM Stent delivery system removed intact. tsites 01:36 PM hand injection 4 cc of contrast tsites 01:38 PM Coronary Dominance: right tsites 01:38 PM Mid/Distal Left Anterior Descending Coronary Artery and diagonal branches with 99% stenosis. If graft is supplying this area, 0 % stenosis tsites 01:38 PM Circumflex, Obtuse Marginal, Left Posterior Descending, and Left Posterolateral Coronary Arteries with 60 % stenosis. If graft is supplying this area, 0 % stenosis tsites 01:40 PM Procedure completed at 13:40 tsites 01:40 PM Did you address TYREE flow and Dominance? Yes tsites 01:41 PM Sign out completed: Radiation Dose 1825 mGy Fluoro Time: 14.5 Isovue 370 - 200ml contrast 210 ml given by Brandon Cervantes DO. Complications: NoneCardiac Rehab Consult needed: YesConfirmed administered medications: Yes tsites 01:41 PM Isovue 370 - 200ml,2 Bottle(s) used. tsites 01:41 PM Sheath left in place to be pulled on floor/holding areaV+Pad tsites 01:41 PM Estimated Blood Loss: less than 20cc tsites 01:41 PM Post ECG NSR tsites 01:41 PM Post Blood Pressure 138/74 tsites 01:41 PM 13:41 Post Pulses Bilateral DP & PT 1+ tsites 01:41 PM Information taught Cardiac Cath and PCI tsites 01:42 PM Education needs Procedure, Plan of Care, and Responsibilities of Patient in Care tsites 01:42 PM Learning barriers :None tsites 01:42 PM Education Methods Verbal tsites 01:42 PM Education evaluation Able to repeat information tsites 01:42 PM Site status No bleeding/hematoma - Rt Groin as reported by Bisi Lewis RT (R) at 13:42 tsites 01:42 PM Opsite applied tsites 01:42 PM Plavix, Effient or Brilinta given Yes tsites 01:42 PM Delay to floor No tsites 01:42 PM Patient out of room: 13:42 tsites 01:45 PM Report given to kimani HIGGINS Pt taken to 2N Room #7. 13:45 tsites 01:46 PM no family at this time tsites 01:51 PM Time: 13:51 Brilinta 180 mg Orally Given by Dimas Heredia RN tsites Complications Complication None Post Procedure Information Blood Pressure: 138/74 mmHg Rhythm: NSR Post procedural instructions were given Closure Device Time Device Success/Fail 12/06/2017 1:46:00 PM Manual Compression Site Checks Time Location Status Staff Sheath In? Note 01:42 PM Rt Groin No bleeding/hematoma Bisi Lewis RT (R) Pulses Time Site Pre-Procedure Post-Procedure Note Bilateral DP & PT 1+ Bilateral radial 2+ 1:41:00 PM Bilateral DP & PT 1+ Updated by Kenia Ellsworth RT (R) on 12/06/2017 1:53:07 PM Kenia Ellsworth RT electronically signed on 12/06/2017 1:53:48 PM with status of Final
[2017-12-06] MEDS ORDERED: *HR* Morphine 2 MG/ML SYRINGE IVP ONE (16:33)
[2017-12-06] MEDS: 0.9 % Sodium Chloride 1,000 ML IVC SCH (19:00)
[2017-12-06] MEDS: *HR* Ticagrelor 90 MG TABLET PO SCH (19:39)
--- NOTE | 2017-12-06 23:51 | Internal Med Progress Note ---
Date of Encounter: 12/06/17 Time of Encounter: 23:51 - Assessment and plan (1) NSTEMI (non-ST elevated myocardial infarction) Current Visit: Yes Status: Acute Assessment and plan: Chest pain controlled. Cardiology consulted; appreciate input. Plan for cath today. Continue aspirin, lipitor, and nitro drip. Patient does not have insurance, so SW and CM consulted to see how patient can afford medications at discharge. (2) Chest pain Current Visit: Yes Status: Resolved Assessment and plan: Resolved. Chest pain controlled on nitro drip at this time. Qualifiers: Chest pain type: other chest pain Qualified Code(s): R07.89 - Other chest pain; R07.8 - Other chest pain (3) Dizziness Current Visit: Yes Status: Resolved Assessment and plan: Resolved. No further episodes. (4) HTN (hypertension) Current Visit: Yes Status: Chronic Assessment and plan: Improved. Continue nitro drip. Continue home medications. Continue coreg and hydralazine PRN. Cardiology consulted; appreciate input. Continue to monitor vitals closely. Qualifiers: Hypertension type: essential hypertension Qualified Code(s): I10 - Essential (primary) hypertension (5) Hyperglycemia Current Visit: Yes Status: Acute Assessment and plan: Improved. Continue accuchecks and low dose SSI QID AC/HS. Will need trial of oral agents after discharge. (6) DVT prophylaxis Current Visit: Yes Status: Acute - Time Spent With Patient less than 15 minutes - Subjective Interval history: Patient had no acute events overnight. She is scheduled for cath today. Nursing staff reports BP better this AM. Patient denies chest pain or SOB at this time. She has no new complaints. - Constitutional Vitals: Temp Pulse Resp BP Pulse Ox 99.2 F 72 90 139/60 97 12/06/17 19:45 12/06/17 20:48 12/06/17 20:48 12/06/17 19:45 12/06/17 20:48 General appearance: Present: cooperative, A&O X 3, morbidly obese, pleasant, no acute distress, answers questions appropriately - Respiratory Respiratory exam: Present: CTAB. Absent: accessory muscle use, rales, rhonchi, wheezes Additional comments: Normal WOB - Cardiovascular Cardiovascular exam: Present: RRR, +S1, +S2. Absent: diastolic murmur, gallop, rubs, systolic murmur Additional comments: No BLE edema - GI/Abdominal GI/Abdominal exam: Present: normal bowel sounds, soft. Absent: distended, hepatomegaly, mass, splenomegaly, tenderness - Psychiatric Psychiatric exam: Present: normal affect, normal mood. Absent: anxious, depressed - Skin Skin exam: Present: dry, intact, warm. Absent: cyanosis, rash Internal Medicine: Result - Labs CBC & Chem 7: 12/06/17 03:33 12/06/17 03:33 Labs: Short CBC 12/06/17 Range/Units 03:33 WBC 11.4 H (4.3-11.1) K/mcL Hgb 11.0 L (11.5-15.4) g/dL Hct 34.6 L (35.3-44.9) % Plt Count 321 (140-400) K/mcL Neutrophils # 8.1 (1.6-8.9) K/mcL BMP 12/06/17 03:33 Sodium 135 L Potassium 3.8 Chloride 103 Carbon Dioxide 24 BUN 17 Creatinine 1.14 Glucose 168 H Calcium 9.0 Liver Function 12/06/17 Range/Units 03:33 Total Bilirubin 0.5 (0.3-1.0) mg/dL AST 11 L (13-39) Units/L ALT 10 (7-52) Units/L Alkaline Phosphatase 55 (34-104) Units/L Albumin 3.5 (3.5-5.7) g/dL - ABG Interpretation ABG results: PT/INR, D-dimer PT 12.7 Seconds (9.4-12.1) H 12/05/17 02:01 Consult Discharge Plan - Plan Referrals: Brandon Cervantes DO [Partnered Physician] - (Office will call patient at home with appointment)
[2017-12-07] MEDS: 0.9 % Sodium Chloride 1,000 ML IVC SCH (01:10)
[2017-12-07 04:00] LABS: Basophils % 0.3 %; Eosinophils # 0.2 K/mcL (0.0-0.6); Eosinophils % 1.9 %; Immature Granulocytes % 0.4 % (0-4); Lymphocytes # 1.2 K/mcL (0.6-4.6); Lymphocytes % 10.4 %; Mean Corpuscular HGB Conc 31.4 g/dL (31.6-35.5); Mean Corpuscular Hemoglobin 27.8 pg (28.0-33.3); Mean Corpuscular Volume 88.6 fL (83.0-100.0); Mean Platelet Volume 10.7 fL (9.4-12.4); Monocytes # 0.8 K/mcL (0.0-1.3); Monocytes % 7.1 %; Neutrophils # 9.4 K/mcL (1.6-8.9); Platelet Count 285 K/mcL (140-400); Red Blood Count 3.95 M/mcL (3.82-4.97); Red Cell Distribution Width 14.6 % (11.5-14.5); Segmented Neutrophils % 79.9 %
[2017-12-07 04:23] LABS: Alanine Aminotransferase 12 Units/L (7-52); Albumin 3.6 g/dL (3.5-5.7); Alkaline Phosphatase 53 Units/L (34-104); Aspartate Amino Transferase 14 Units/L (13-39); BUN/Creatinine Ratio 14 (6-26); Bilirubin,Total 0.5 mg/dL (0.3-1.0); Blood Urea Nitrogen 14 mg/dL (6-20); Carbon Dioxide 22 mEq/L (23-29); Chloride 105 mEq/L (98-107); Globulin 3.5 g/dL (2.4-3.5); Glucose 140 mg/dL (70-105); Osmolality,Calculated 283 (280-300); Sodium 135 mEq/L (136-145); Total Protein 7.1 g/dL (6.4-8.9); eGFR For African Americans > 60 (> 60); eGFR For Non-African Americans 58 (> 60)
--- NOTE | 2017-12-07 08:06 | Cardiology Progress Note ---
Date of Encounter: 12/07/17 Time of Encounter: 08:00 Assessment and Plan (1) NSTEMI (non-ST elevated myocardial infarction) Current Visit: Yes Status: Acute Per Cardiology: Peak troponin 0.23. Echo- LVEF= 60%, mild diastolic dysfunction, mild mitral regurgitation, no pulmonary hypertension. S/P catheterization: With PTCA and drug-eluting stent to mid LAD 80% lesion, PTCA/drug-eluting stent to distal LAD 90% lesion, PTCA/drug-eluting stent diagonal 1 99% lesion, status post PTCA/drug -eluting stent ramus 100% lesion. Has remaining proximal circumflex 60% lesion. Chest pain-free. Any function stable post procedure, will DC IV fluid. On aspirin, statin (will maximize dose), beta linda, Brilinta. Recommend DC with SL nitroglycerin pills-- education provided on her utilize. Patient education provided regarding postprocedure care, post PA care, and importance of no discontinuation of aspirin/Brilinta for at least one year unless direct by cardiology. Assistance card provided. All questions answered. PT consult placed, already has social work consult, please evaluate discharge planning and potential home health versus rehabilitation. Does not utilize home oxygen, attempt to wean off. Please provide work excuse for hospital stay and to not return to work until seen by cardiology. Cardiology will sign off, re-consult as needed, follow-up scheduled. Patient verbalized understanding and agreed with plan. (2) HTN (hypertension) Current Visit: Yes Status: Chronic Per Cardiology: Systolic blood pressures 150s to 160s. Heart rate in the 70s to 80s. Will increase beta linda. Continue to titrate as needed. Qualifiers: Hypertension type: essential hypertension Qualified Code(s): I10 - Essential (primary) hypertension Discussion w patient/family: The assessment and plan as outlined above was discussed with the patient who expressed understanding and agreement. All questions were answered. Thank you for involving us in the care of your patient. Please call with any questions. Subjective Principal diagnosis: NSTEMI Interval history: Patient reports mild right groin soreness. Denies any chest pain. Reports short of breath improved. Denies any concerns or complaints. Inquiry into potential home health at home. Objective Vital Signs, Last 4 Hours Temp Pulse Resp BP Pulse Ox 12/07/17 07:30 98.6 F 75 16 164/82 97 12/07/17 05:13 98.7 F 70 15 150/82 95 12/07/17 04:28 80 15 95 12/07/17 04:07 98.7 F 78 15 171/87 95 General: Conversant, No Apparent Distress HEENT: Atraumatic, Normocephaly, Mucus Membranes Moist Neck: No JVD, Normal carotid pulses Cardiac: Reg Rate and Rhythm, Normal S1 and S2, No Murmur Lungs: Normal Breath Sounds, No Wheeze, Rales, Rhonchi Neuro: Alert and responsive, No focal deficits noted Abdomen: Soft, Non-Tender, Other (obese) Skin: No rashes noted on visualized skin, Other (Right groin site dry and intact , no hematoma, no bleeding, no ecchymosis, right DP and PT pulses 1+ palpable, extremity warm to touch) Musculoskeletal: No Chest Wall Tenderness Extremities: No Clubbing, No Cyanosis, No Edema, Normal Pulses Results 12/07/17 03:36 12/07/17 03:36 Lab Results Laboratory Tests 12/04/17 12/05/17 12/07/17 15:36 02:01 03:36 Hgb 11.0 L Hct 35.0 L Creatinine Est GFR (Non-Af Amer) Magnesium 1.8 AST ALT Troponin I 0.23 H* 12/07/17 03:36 Hgb Hct Creatinine 0.98 Est GFR (Non-Af Amer) 58 L Magnesium AST 14 ALT 12 Troponin I ITS Impressions Chest X-Ray 12/04/17 13:49 IMPRESSION: 1. Cardiomegaly. 2. Calcific atherosclerosis aorta. 3. No focal pulmonary disease evident. D/ / Wilbur Xavier / Wilbur Xavier Interpreting Provider: Wilbur Xavier Echocardiogram 12/05/17 16:37 Impressions: Blood pressure 180/92 mmHg during testing. LVEF 60%. Mild left ventricular diastolic dysfunction. Normal right ventricular structure and function. Mild mitral regurgitation. No pulmonary hypertension. Findings: Study Quality * Technically adequate exam. ECG Findings * Normal sinus rhythm. Left Ventricle * LVEF 60%. * Moderate concentric left ventricular hypertrophy. * Mild left ventricular diastolic dysfunction. Right Ventricle * Normal right ventricular structure and function. Left Atrium * Normal left atrial size. Right Atrium * Normal right atrial size. Aortic Valve * No aortic regurgitation. * Aortic valve not well visualized. * No aortic stenosis. Mitral Valve * Normal mitral valve structure. * No mitral stenosis. * Mild mitral regurgitation. Tricuspid Valve * No tricuspid regurgitation. * Normal tricuspid valve structure. Pulmonic Valve * Pulmonic valve is not well visualized. * No pulmonic stenosis. * No pulmonic regurgitation. Pulmonary Artery * Pulmonary artery not well visualized. Aorta * Normally sized aortic root. * Ascending aorta not well visualized. Pericardium * There is no pericardial effusion present. Interatrial Septum * No evidence of PFO by color Doppler. IVC * The IVC is not dilated. Active Medications Acetaminophen (Tylenol) 650 mg PO Q6HR PRN PRN Reason: Mild Pain/Fever Stop: 06/05/18 16:56 Last Admin: 12/06/17 00:02 Dose: 650 mg Hydrocodone Bitart/Acetaminophen (Gordo 5-325 Mg) 1 tab PO Q6HR PRN PRN Reason: Moderate Pain Stop: 06/05/18 16:56 Aspirin (Aspirin Ec) 81 mg PO DAILY [facility] Stop: 06/06/18 09:01 Last Admin: 12/06/17 07:51 Dose: 81 mg Atorvastatin Calcium (Lipitor) 20 mg PO HS [facility] Stop: 06/06/18 21:01 Last Admin: 12/06/17 19:39 Dose: 20 mg Carvedilol (Coreg) 3.125 mg PO BIDWM TOÑO PRN Reason: Protocol Stop: 06/06/18 14:01 Last Admin: 12/06/17 19:00 Dose: 3.125 mg Dextrose/Water (Dextrose 50% (Syg)) 25 ml IVP AD PRN PRN Reason: Hypoglycemia Stop: 06/06/18 15:19 Glucagon (Glucagen) 1 mg IM ONCE PRN PRN Reason: Hypoglycemia Stop: 06/06/18 15:19 Glucose (Gluctose) 15 gm PO ONCE PRN PRN Reason: Hypoglycemia Stop: 06/06/18 15:19 Glucose (Gluctose) 30 gm PO ONCE PRN PRN Reason: Hypoglycemia Stop: 06/06/18 15:19 Hydralazine HCl (Hydralazine) 10 mg IVP Q6HR PRN PRN Reason: Hypertension Stop: 06/05/18 16:30 Last Admin: 12/07/17 04:20 Dose: 10 mg Dextrose (Dextrose 5%) 1,000 mls @ 100 mls/hr IVC .Q10H PRN PRN Reason: HYPOGLYCEMIA Stop: 06/06/18 15:19 Sodium Chloride (0.9 % Sodium Chloride) 1,000 mls @ 100 mls/hr IVC .Q10H TOÑO Stop: 06/07/18 14:46 Last Admin: 12/07/17 01:10 Dose: 100 mls/hr Insulin Human Lispro (Humalog) 0 units SQ HS TOÑO PRN Reason: Protocol Stop: 06/06/18 21:01 Last Admin: 12/06/17 21:16 Dose: Not Given Insulin Human Lispro (Humalog) 0 units SQ TIDAC TOÑO PRN Reason: Protocol Stop: 06/06/18 16:31 Last Admin: 12/06/17 18:19 Dose: Not Given Naloxone HCl (Narcan) 0.4 mg IVP Q2MIN PRN PRN Reason: SEE COMMENTS Stop: 06/05/18 16:39 Nitroglycerin (Nitroglycerin) 0.4 mg SL Q5MIN PRN PRN Reason: Chest Pain Stop: 06/05/18 13:55 Last Admin: 12/04/17 14:17 Dose: 0.4 mg Ticagrelor (Brilinta) 90 mg PO BID [facility] Stop: 06/07/18 21:01 Last Admin: 12/06/17 19:39 Dose: 90 mg - Imaging and Cardiology Echo: report reviewed Cardiac cath: report reviewed - EKG Interpretation EKG results cardiology: other (Sinus rhythm on telemetry) Consult Discharge Plan - Plan Referrals: Brandon Cervantes DO [Partnered Physician] - (Office will call patient at home with appointment)
[2017-12-07] MEDS: Insulin LISPRO 300 UNITS/3 ML VIAL SQ SCH ×2 (08:10→11:49)
[2017-12-07] MEDS: *HR* Ticagrelor 90 MG TABLET PO SCH (08:31)
[2017-12-07] MEDS: Aspirin Enteric Coated 81 MG Tablet PO SCH (08:31)
[2017-12-07] MEDS: Acetaminophen 325 MG TABLET PO PRN (13:34)
[2017-12-07 15:27] VITALS: BP 166/90
--- NOTE | 2017-12-07 16:49 | Discharge Summary ---
- NOTES TO OUTPATIENT PROVIDER Notes to Outpatient Provider: Follow up with new PCP in 2-3 days after discharge. New diagnosis of DM during this hospitalization. Will be discharged home on metformin 500 mg BID; please take over management of DM at follow up appointment. Follow up with cardiology as directed. Orders not resulted at time of discharge: Pending orders 12/05/17 10:01 EKG [ECG 12 lead ECG] [ECG] Routine 12/06/17 14:37 EKG [ECG 12 lead ECG] [ECG] Routine 12/08/17 04:00 Complete Blood Count [HEME] AM 0400 Comprehensive Metabolic Panel AM 0400 12/09/17 04:00 Complete Blood Count [HEME] AM 0400 Comprehensive Metabolic Panel AM 0400 Date of Encounter: 12/07/17 Time of Encounter: 16:47 - Discharge Diagnosis (1) NSTEMI (non-ST elevated myocardial infarction) Priority: Primary Status: Acute (2) Chest pain Priority: Secondary Status: Resolved Qualifiers: Chest pain type: other chest pain Qualified Code(s): R07.89 - Other chest pain; R07.8 - Other chest pain (3) Dizziness Priority: Secondary Status: Resolved (4) HTN (hypertension) Priority: Secondary Status: Chronic Qualifiers: Hypertension type: essential hypertension Qualified Code(s): I10 - Essential (primary) hypertension (5) Hyperglycemia Priority: Secondary Status: Acute (6) Type II diabetes mellitus Priority: Secondary Status: Acute Qualifiers: Diabetes mellitus watermaster insulin use: without residential use Diabetes mellitus complication status: without complication Qualified Code(s): E11.9 - Type 2 diabetes mellitus without complications (7) DVT prophylaxis Priority: Secondary Status: Acute Hospital course: Ms. Thornton is a 57 year old female admitted for chest pain and NSTEMI. Patient was admitted to general medical floor with telemetry. Initial troponin 0.23, and trended to 0.21. Cardiology was consulted and had placed her on heparin and nitro drips in the ED. She was given aspirin and lipitor. She was hypertensive upon admission; she had been out of home medications for some time. Antihypertensives were started. She was scheduled for cath the next day after normalization of BP. Patient had mild hyperglycemia (BG = 203) upon admission. Hemoglobin A1C was 7.5%. She was started on accuchecks and low dose sliding scale insulin, and blood glucoses improved. She will be discharged home on metformin 500 mg BID (with meals), and DM regimen can be adjusted at follow up with PCP after discharge. She tolerated cath well and will be discharged home on brillinta (coupon card provided because she has no insurance and has financial difficulties getting medications), aspirin, lipitor , coreg, and nitro PRN. She will follow up with new PCP of her choice in 2-3 days after discharge. She will follow up with cardiology as directed. She will be referred to home health with home PT evaluation, as PT was not able to evaluate her today. Patient has met maximum benefit of this hospitalization and will be discharged home in stable condition. Discharge discussed with: patient, nurse - Time Spent with Patient Total time spent providing and/or coordinating discharge services: Greater than 30 minutes - Discharge Medications Prescriptions: Nitroglycerin 0.4 mg SL Q5MIN PRN 30 Days #30 tab.subl PRN Reason: Chest Pain Aspirin Enteric Coated [Aspirin EC] 81 mg PO DAILY 30 Days #30 tablet. Atorvastatin [Lipitor] 80 mg PO HS 30 Days #30 tablet Carvedilol [Coreg] 6.25 mg PO BIDWM 30 Days #60 tablet metFORMIN [Glucophage] 500 mg PO BIDWM 30 Days #60 tablet Ticagrelor [Brilinta] 90 mg PO BID 30 Days #60 tablet Home Medications: hydrOXYzine pamoate [HydrOXYzine Pamoate] 25 mg PO Q8H PRN 12/04/17 [History] Aspirin Enteric Coated [Aspirin EC] 81 mg PO DAILY 30 Days #30 tablet. [Rx] Atorvastatin [Lipitor] 80 mg PO HS 30 Days #30 tablet 12/07/17 [Rx] Carvedilol [Coreg] 6.25 mg PO BIDWM 30 Days #60 tablet 12/07/17 [Rx] Nitroglycerin 0.4 mg SL Q5MIN PRN 30 Days #30 tab.subl 12/07/17 [Rx] Ticagrelor [Brilinta] 90 mg PO BID 30 Days #60 tablet 12/07/17 [Rx] metFORMIN [Glucophage] 500 mg PO BIDWM 30 Days #60 tablet 12/07/17 [Rx] Allergies/Adverse Reactions: 3 Allergy/AdvReac Type Severity Reaction Status Date / Time No Known Allergies Allergy Verified 09/26/15 15:41 Date of admission: 12/04/17 16:09 Primary care physician: PCP NONE Consults: 12/04/17 16:25 Consult to Cardiology [CONS] Routine Comment: Consulting Provider: Violette Leo Reason for Consult: NSTEMI Call Completed: Yes 12/04/17 17:00 Consult to Cider Press Operator [CONS] Routine Reason for SW Consult: Please assess patient for possible home needs for post -discharge planning. 12/07/17 08:05 Consult to Cardiac Rehabilitation-Phase1 [CONS] Routine Comment: Reason for Consult: cad, s/p stents Call Completed: No 12/07/17 08:42 Consult to Physical Therapy [CONS] Routine Comment: Evaluate, develop and implement POC Reason for Consult: DC planning Does patient have active BEDREST order?: No Is patient medically & hemodynamically stable?: Yes Discharging clinician: Filippo Rome Anticipated date of discharge: 12/07/17 - Constitutional Vitals: Temp Pulse Resp BP Pulse Ox 97.8 F 90 20 166/90 99 12/07/17 15:23 12/07/17 15:29 12/07/17 15:23 12/07/17 15:23 12/07/17 15:23 General appearance: Present: cooperative, A&O X 3, morbidly obese, pleasant, no acute distress, answers questions appropriately - Respiratory Respiratory exam: Present: CTAB. Absent: accessory muscle use, rales, rhonchi, wheezes Additional comments: Normal WOB - Cardiovascular Cardiovascular exam: Present: RRR, +S1, +S2. Absent: diastolic murmur, gallop, rubs, systolic murmur Additional comments: No BLE edema - GI/Abdominal GI/Abdominal exam: Present: normal bowel sounds, soft. Absent: distended, hepatomegaly, mass, splenomegaly, tenderness - Psychiatric Psychiatric exam: Present: normal affect, normal mood. Absent: anxious, depressed - Skin Skin exam: Present: dry, intact, warm. Absent: cyanosis, rash - Patient Status Disposition: Home Health Service Condition: Good Overall status at discharge: patient is back to baseline - Discharge Instructions Follow Up With: Brandon Cervantes DO [Partnered Physician] - (Office will call patient at home with appointment) Additional Instructions: Follow up with new PCP in 2-3 days after discharge. New diagnosis of DM during this hospitalization. Will be discharged home on metformin 500 mg BID; please take over management of DM at follow up appointment. Follow up with cardiology as directed. - Diet and Activity Activity: resume usual activities as tolerated Diet: diabetic diet, other (Cardiac)
[2017-12-07] MEDS ORDERED: *HR* Metformin 500 MG TABLET PO STA (16:51)
--- NOTE | 2017-12-07 17:25 | Physician Discharge Referral ---
Home Health/Hosp Referral Info Transfer to: Home Health Provider in Charge Post Discharge: PCP - Diagnosis (1) NSTEMI (non-ST elevated myocardial infarction) Priority: Primary Status: Acute (2) Chest pain Priority: Secondary Status: Resolved (3) Dizziness Priority: Secondary Status: Resolved (4) HTN (hypertension) Priority: Secondary Status: Chronic (5) Hyperglycemia Priority: Secondary Status: Acute (6) Type II diabetes mellitus Priority: Secondary Status: Acute (7) DVT prophylaxis Priority: Secondary Status: Acute - Respiratory Orders Smoking Cessation: Smoking cessation has been advised. For more information, call the [place] Tobacco Quit Line at 2-743-XLAB-NOW. - Diet/Nutrition Diet/Nutrition Orders: Cardiac, No Concentrated Sweets Diet/Nutrition: List: Diabetic - Activity Activity: List: Per physical therapy - Services Needed Following services are medically necessary services: Nursing, Physical Therapy - Transfer Medications Prescriptions: Nitroglycerin 0.4 mg SL Q5MIN PRN 30 Days #30 tab.subl PRN Reason: Chest Pain Aspirin Enteric Coated [Aspirin EC] 81 mg PO DAILY 30 Days #30 tablet. Atorvastatin [Lipitor] 80 mg PO HS 30 Days #30 tablet Carvedilol [Coreg] 6.25 mg PO BIDWM 30 Days #60 tablet metFORMIN [Glucophage] 500 mg PO BIDWM 30 Days #60 tablet Ticagrelor [Brilinta] 90 mg PO BID 30 Days #60 tablet Home Medications: hydrOXYzine pamoate [HydrOXYzine Pamoate] 25 mg PO Q8H PRN 12/04/17 [History] Aspirin Enteric Coated [Aspirin EC] 81 mg PO DAILY 30 Days #30 tablet. [Rx] Atorvastatin [Lipitor] 80 mg PO HS 30 Days #30 tablet 12/07/17 [Rx] Carvedilol [Coreg] 6.25 mg PO BIDWM 30 Days #60 tablet 12/07/17 [Rx] Nitroglycerin 0.4 mg SL Q5MIN PRN 30 Days #30 tab.subl 12/07/17 [Rx] Ticagrelor [Brilinta] 90 mg PO BID 30 Days #60 tablet 12/07/17 [Rx] metFORMIN [Glucophage] 500 mg PO BIDWM 30 Days #60 tablet 12/07/17 [Rx] Allergies/Adverse Reactions: 3 Allergy/AdvReac Type Severity Reaction Status Date / Time No Known Allergies Allergy Verified 09/26/15 15:41 Certification: Further, I certify that my clinical findings support that this patient is homebound (i.e. absences from home require considerable and taxing effort and are for medical reasons or islam services or infrequently or short duration when for other reasons) because: NSTEMI, HTN, DM Type II, and debility. Homebound Reason: Post-surgery restriction and or conditions limit ability to leave home, Severity of cardiac or pulmonary status limits activity tolerance Attestation: My signature below is to certify that this patient is under my care and that I, or nurse practitioner, or a physician's business office assistant working with me, has a face-to -face encounter with this patient.
--- NOTE | 2017-12-08 09:58 | Electrocardiograph Report ---
[place] [address] Test Date: 2017-12-04 Pat Name: Racheal Thornton Department: 103 Room: 2N07 Gender: F Hospice Volunteer: : 1960 Requested By: Freda De Oliveira Order Number: [id number] Reading MD: Hugo Power DO Measurements Intervals [place] Rate: 83 P: 21 CO: 182 QRS: -37 QRSD: 93 T: 113 QT: 382 QTc: 422 Interpretive Statements SINUS RHYTHM POSSIBLE LEFT ATRIAL ENLARGEMENT MARKED LEFT AXIS DEVIATION PATTERN CONSISTENT WITH PULMONARY DISEASE LEFT VENTRICULAR HYPERTROPHY AND ST-T CHANGE Electronically Signed On 12-08-2017 9:57:02 EDT by Hugo Power DO
--- NOTE | 2017-12-10 22:49 | Electrocardiograph Report ---
[address] [place] [address] Test Date: 2017-12-06 Pat Name: Racheal Thornton Department: 110 Room: 2N07 Gender: F Compressed Gases Tester: MOR : 1960 Requested By: Brandon Cervantes Order Number: [id number] Reading MD: Hugo Power DO Measurements Intervals [place] Rate: 60 P: 29 AK: 198 QRS: -31 QRSD: 94 T: 122 QT: 439 QTc: 441 Interpretive Statements SINUS RHYTHM MARKED LEFT AXIS DEVIATION ST DEVIATION AND MODERATE T-WAVE ABNORMALITY, CONSIDER LATERAL ISCHEMIA Electronically Signed On 12-10-2017 22:47:39 EDT by Hugo Power DO
== END 2017-12-07 18:35 | disposition home health service (06) | DRG 246 ==
LOC: EMEROO 13:47 → 2NENU 16:09 → 2NNU 12-06 13:01
PROVIDERS: ADMIT Student in an Organized Health Care Education/Training Program; ATTEND Family Medicine

== ENCOUNTER 2018-06-26 06:04 | Inpatient (IN) ==
[2018-06-26] MEDS ORDERED: *HR* FentaNYL (PF) 100 MCG/2 ML VIAL ONE ×2 (06:26→08:43)
[2018-06-26] MEDS ORDERED: *HR* Midazolam HCl 2 MG/2 ML VIAL ONE (06:26)
[2018-06-26] MEDS ORDERED: *HR* Propofol 200 MG/20 ML VIAL IVP ONE (06:26)
[2018-06-26] MEDS ORDERED: CeFAZolin Syr 2,000MG/20 ML 2,000 MG/20 ML SYRINGE IVPB ONE (06:27)
[2018-06-26] MEDS ORDERED: Ringers Solution, Lactated 1,000 ML IVC SCH (06:30)
[2018-06-26] MEDS ORDERED: *HR* Rocuronium Bromide 50 MG/5 ML VIAL ONE ×2 (06:34→08:35)
[2018-06-26] MEDS ORDERED: Lidocaine -MPF 4% 5 ML AMPUL ONE (06:34)
[2018-06-26] MEDS ORDERED: Dexamethasone 4 MG/ML VIAL ONE (06:34)
[2018-06-26] MEDS ORDERED: Ondansetron 4 MG/2 ML VIAL ONE ×2 (06:34→09:19)
[2018-06-26] MEDS ORDERED: Lidocaine -MPF 2% 2 ML VIAL ONE (06:34)
[2018-06-26] MEDS ORDERED: *HR* Succinylcholine 200 MG/10 ML VIAL IVP ONE (06:34)
--- NOTE | 2018-06-26 07:00 | Anesthesia Evaluation PreOp ---
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 Any Significant HX Other Medical History: Diabetes Type II, Other (obesity BMI=43.7) Anesthesia History: No Prior Anesthetic Complications, Past Anesthesia Alcohol Use: none Drug use: none Medications and Allergies Aspirin Enteric Coated [Aspirin EC] 81 mg PO DAILY 30 Days #30 tablet.dr [Rx] Atorvastatin [Lipitor] 80 mg PO HS 30 Days #30 tablet 12/07/17 [Rx] Nitroglycerin 0.4 mg SL Q5MIN PRN 30 Days #30 tab.subl 12/07/17 [Rx] Ticagrelor [Brilinta] 90 mg PO BID 30 Days #60 tablet 12/07/17 [Rx] Metformin HCl [Glucophage] 1,000 mg PO BID 04/28/18 [History] Naproxen [Naprosyn] 500 mg PO BID PRN #20 tablet 05/11/18 [Rx] Carvedilol [Coreg] 6.25 mg PO BID 06/09/18 [History] Citalopram [CeleXA] 20 mg PO DAILY 06/09/18 [History] Docusate [Colace] 100 mg PO BID #60 capsule 06/09/18 [Rx] HYDROcodone/Acet 5/325 mg [[place] 5-325 mg] 1 tab PO Q4H PRN 4 Days #10 tab 06/09 [Rx] traZODone [TraZODone] 50 mg PO HS PRN 06/09/18 [History] 3 Allergy/AdvReac Type Severity Reaction Status Date / Time No Known Allergies Allergy Verified 06/09/18 09:30 - Meds/Allergy Pre-op Review Medications Reviewed: Yes Allergies Reviewed: Yes Beta Blockers on Current Med List: Yes If Beta Blockers taken, Date/Time (Last Dose taken): 06/25/2018 at 1830 Anesthesia Results - Labs Laboratory Tests 04/28/18 05/11/18 05/11/18 15:43 20:34 20:34 WBC 10.9 Hgb 11.2 L Hct 34.5 L Plt Count 246 PT 11.7 INR 1.0 APTT 34.9 Sodium 135 L Potassium 3.9 BUN 14 Creatinine 1.05 - Imaging EKG: report reviewed (04/28/2018 SINUS BRADYCARDIA MARKED LEFT AXIS DEVIATION LEFT VENTRICULAR HYPERTROPHY AND ST-T CHANGE) Additional studies: Echo 05/2018 Impressions: LVEF 55-60%. Increased LV wall thickness - measurements not optimally obtained (moderate by Echo 12/05/2017). There is a small pericardial effusion present. There is no echocardiographic evidence on this limited study for tamponade. 12/05/2017 Echo Impressions: Blood pressure 180/92 mmHg during testing. LVEF 60%. Mild left ventricular diastolic dysfunction. Normal right ventricular structure and function. Mild mitral regurgitation. No pulmonary hypertension. LEFT HEART CATH Stent w/ PTCA Single Major Vessel Stent w/ PTCA Single Major Vessel Stent w/ PTCA each add'l branch Indications: Non-Stemi 12/05/2017 [facility] Impressions: There is severe two vessel coronary artery disease. LV- Lower limits of normal, EF40% Patient had successful PTCA/Drug-Eluting Stent placement in the Ramus. Patient had successful Drug-Eluting Stent placement in the midand distal LAD and Diagonal. Anesthesia Exam O2 Sat Height 1.52 m Height 1.52 m Height 1.52 m Weight 101.605 kg Weight 101.605 kg Weight 101.605 kg O2 Sat by Pulse Oximetry 97 O2 Sat by Pulse Oximetry 97 Vital Signs Temp Pulse Resp BP Pulse Ox 98.3 F 78 18 173/81 97 06/26/18 06:28 06/26/18 06:28 06/26/18 06:28 06/26/18 06:28 06/26/18 06:28 Blood Glucose* 153 Height: 5' Weight: 224 lbs NPO (# of Hours): 8 Pain Scale: 0 Pain Scale Used: Numeric (1 - 10) - HEENT Pupil (Motor): EOMI Mallampati: III Teeth: Edentulous Denture Type: Upper: Complete, Lower: Complete Oral Opening: Greater than 3 - BACK HOE OPERATOR LOC: Oriented BACK HOE OPERATOR Motor: Normal RUE, Normal LUE, Normal RLE, Normal LLE, Normal Face BACK HOE OPERATOR Sensory: Normal: RUE, LUE, RLE, LLE, Face - Cardiac Rhythm: Regular Murmur: None - Pulmonary Breath Sounds: bilateral Clear Respiratory Effort: Symmetrical Anesthesia Assess/Plan ASA Score: 3 Modified Rica Scale for Level of Consciousness: Cooperative, oriented, and tranquil Anesthetic Plan: General, Regional Monitoring Plan: Standard Monitors Recovery Plan: PACU
--- NOTE | 2018-06-26 07:10 | History & Physical Report ---
Date of Encounter: 06/26/18 Time of Encounter: 07:10 24 Hour HP Update - Instructions Instructions: If the History and Physical is less than 30 days old and was completed prior to A.M. admission and or procedure and has NOT been updated on calendar day of procedure please complete this update prior to performing procedure. - Update Patient reports changes in Medical Condition: No Changes in examination, assessment, or condition: No Changes in Medication: No Preop tests/diagnostics Reviewed: Yes Surgery Remains Indicated: Yes Consent for Planned Operative Procedure(s) Verified: Yes - Pre-Operative Checklist Preoperative Checklist Indicated: Yes Prophylactic Antibiotic Ordered: Yes Home Medications Include Beta Ahmet: Yes Is VTE Prophylaxis Indicated?: Yes
[2018-06-26] MEDS ORDERED: ROPIVACAINE HCL/PF 0.5% 30 ML VIAL ONE (07:23)
[2018-06-26] MEDS ORDERED: Lidocaine -MPF 1% 5 ML AMPUL ONE (07:25)
[2018-06-26] MEDS ORDERED: EPHEDrine 50 MG/ML VIAL ONE (08:17)
[2018-06-26] MEDS ORDERED: Ondansetron 4 MG/2 ML VIAL IVP ONE (08:34)
[2018-06-26] MEDS ORDERED: *HR* Promethazine 25 MG/ML VIAL IVP PRN (08:34)
[2018-06-26] MEDS ORDERED: *HR* OxyCODONE/APAP 5/325 TABLET PO PRN (08:34)
[2018-06-26] MEDS ORDERED: *HR* HYDROmorphone (PF) 1 MG/ML SYRINGE IVP PRN (08:34)
--- NOTE | 2018-06-26 08:41 | Anesthesia Procedures ---
Date of Encounter: 06/26/18 Time of Encounter: 07:31 Procedures: Anesthesia - Nerve Block Procedure Date: 06/26/18 Time: 07:31 Allergies/Adv Reactions: NKDA Surgical Procedure: L Robotic Nephrectomy Checklist: Correct Patient Identifier, Correct procedure, History checked Correct side: Left Blood Thinner: No (Stopped 06/22) Monitor Applied: EKG, BP, Pulse Oximetry Supplemental Oxygen via Nasal Cannula (L/min): 2 Sedation: Versed (mg): 2 Sedation: Fentanyl (mcg): 50 Indication: Post Op Analgesia Pre-op Neuro Deficits: No Block Type: Other (Bilateral Erector Spinae Blocks.) Catheter placed: No Sterile Technique: Yes Ultrasound used: Yes Anatomy identified: Yes Visual spread of Local: Yes Neuro Stimulation: No Blood on Needle Aspiration: No Smooth Injection of Local: Yes Pain with Injection of Local: No Prep: Chlorhexadine Needle: 21 x 100 mm Stimuplex Local: Ropivacaine (30mL of 0.5% Ropivacaine with 8mg of Decadron for each side of CLAUDIA Block) Number of Attempts: 1 Complications: None/effective block Vitals: Vital Signs/O2 Sat/Glucose, Most Recent Temp Pulse Resp BP Pulse Ox 98.3 F 78 18 173/81 97 06/26/18 06:38 06/26/18 06:38 06/26/18 06:38 06/26/18 06:38 06/26/18 06:38 Blood Glucose* 153
[2018-06-26] MEDS ORDERED: *HR* Labetalol 20 MG/4 ML SYRINGE IVP ONE (09:11)
[2018-06-26] MEDS ORDERED: Acetaminophen IV 1,000 MG/100 ML INFUS..BTL ONE (09:57)
[2018-06-26] MEDS ORDERED: *HR* Labetalol 100 MG/20 ML MDV ONE (10:29)
[2018-06-26] MEDS ORDERED: Neostigmine Methylsulfate 3 MG/3 ML SYRINGE ONE (10:58)
[2018-06-26] MEDS ORDERED: *HR* Labetalol 20 MG/4 ML SYRINGE IVP PRN (12:03)
--- NOTE | 2018-06-26 12:40 | Operative Note ---
Date of procedure: 06/26/18 Pre-op diagnosis: Nonfunctioning left kidney with kidney stones Post-op diagnosis: same Procedure: Left robotic nephrectomy Implants: 16-[place] Landa catheter Complications: None Anesthesia: GETA Surgeon: Chris Mendoza Was there an assistant to the director present: Yes Social Service Liaison: Heather Cotter Estimated blood loss (cc): 20 Specimen: left kidney Condition: stable Disposition: PACU Procedure in Detail: Indications: Racheal is a 57-year-old woman who presents with left flank pain. Her CT showed evidence of an atrophic left kidney with staghorn calculus. A nuclear renal scan showed minimal function to the left kidney. She elected to undergo a left robotic nephrectomy. She was informed of the risks of the procedure which include but are not limited to bleeding, infection, injury to other structures, need for further procedures, urine leak, bowel injury, need for open conversion , and the risk of anesthesia. She is willing to proceed. Procedure After informed consent was obtained the patient was brought back to the operating room and placed in the supine position. A timeout was performed. Gen. anesthesia was then administered and an endotracheal tube was placed. Appropriate IV access and arterial lines were obtained. A Landa catheter was placed. She was then placed in the flank position. Her left side was up. All pressure points were padded. She was well secured to the table. She was then prepped and draped in the usual sterile fashion. We then marked out our incision along the lateral aspect of the rectus abdominis muscle. 4 robotic ports were placed in line. There was one robotic port which was 12 mm to accommodate the stapler. Access was obtained using a Veress needle. 2 clicks were heard. It past the water drop test. Insufflation was then initiated. Pressures were low consecutively. The abdomen was insufflated. Once the pressure was up to 15, we inserted the 8 mm robotic port. The camera was placed through the port. No evidence of bowel injury was noted. Remaining robotic ports were inserted. A 12 mm port was placed for the assistant to the director lateral to the umbilicus using the air seal. The robot was docked. There were small adhesions located superiorly which were taken down sharply. The bowel was reflected off the kidney along the white line of Toldt. The kidney was identified. Dissection proceeded inferiorly. Once the bowel was reflected medially I identified the gonadal vein. This was pressed down and the ureter was identified behind it. The ureter was elevated with the kidney and the kidney was lifted towards the anterior abdominal wall. Dissection proceeded in a superior fashion to the hilum. The renal vein was identified. There was an early branch. The renal artery was identified behind it. The robotic stapler was introduced. The renal vein and renal artery were taken together. A second stapler load was used to control the lower pole renal vein. Hemostasis was good. A third staple load was placed across what appeared to be another arterial branch along the posterior aspect. We then turned our dissection superior and laterally and freed the kidney from the splenorenal attachments. Dissection moved along the lateral aspect to the inferior aspect of the kidney. The ureter was again identified. A clip was placed across the inferior aspect and the ureter was divided. The kidney and perirenal fat were freed inferiorly and dissection proceeded superiorly once the lateral attachments were freed. The superior aspect was freed using cautery. The adrenal gland was identified and left in place. The kidney was then completely freed. Hemostasis was good. The robot was undocked. The kidney was elevated laparoscopically and a 15 millimeter port was placed where the 12 mm robotic port was located. An entrapment bag was placed through this port and the kidney was placed into the bag. The Endo Close device was used to close the air seal port. An 0 Vicryl suture was used. The skin was then extended over top of the entrapment bag. The fascia was incised and with some effort the kidney within its entrapment bag was removed. Hemostasis was achieved. The peritoneum was closed in a running fashion using 0 Vicryl suture. The fascia was closed using an 0 Vicryl suture in a running fashion. The wounds were irrigated. Local anesthetic was infiltrated in the skin. A Vicryl suture was used to reapproximate Hernandez's fascia along the extraction site. The wounds were closed in a subcuticular fashion using 4-0 Monocryl suture. Local anesthetic was infiltrated in the wounds. Dermabond was applied to the wounds. The patient was then awakened from general anesthesia and brought to recovery room in good condition. All sponge, needle, and instrument counts were correct.
--- NOTE | 2018-06-26 13:50 | Anesthesia Evaluation Post Op ---
Date of Encounter: 06/26/18 Time of Encounter: 13:49 - Vital Signs Vital Signs: Vital Signs/O2 Sat, Most Current Temp Pulse Resp BP Pulse Ox 98.9 F 80 18 155/82 94 06/26/18 13:31 06/26/18 13:31 06/26/18 13:31 06/26/18 13:31 06/26/18 13:31 - Lungs Lungs: Clear Ascult./Percussion - Airway Airway: Non-obstructed - Cardiovascular Regular Rate - Mental Status Mental Status: Asleep with brisk response to light stimulation - Pain Pain Scale: 3 Pain Scale used: Numeric (1 - 10) - Nausea Vomiting Nausea Vomiting: Responds to treatment with IV Meds - Hydration Hydration: Ice chips, Landa catheter - Discharge PostOp Status: Transfer Patient to floor
[2018-06-26] MEDS ORDERED: Naloxone 0.4 MG/ML INJ IVP PRN (15:07)
[2018-06-26] MEDS ORDERED: Ondansetron 4 MG/2 ML VIAL IVP PRN (15:07)
[2018-06-26] MEDS ORDERED: D5% in Water 1,000 ML IVC PRN (15:07)
[2018-06-26] MEDS ORDERED: Dextrose Gel 15 GM/37.5 ML TUBE PO PRN ×2 (15:07)
[2018-06-26] MEDS ORDERED: traZODone 50 MG TABLET PO PRN (15:07)
[2018-06-26] MEDS ORDERED: *HR* Dextrose 50 % in Water (Syg) 50 ML SYRINGE IVP PRN (15:07)
[2018-06-26] MEDS: OXYCODONE Oral CONC 10 MG/0.5 ML ORAL.SYG SL PRN ×2 (15:35→21:58)
[2018-06-26] MEDS: 0.9 % Sodium Chloride 1,000 ML IVC SCH (16:03)
[2018-06-26] MEDS: Insulin LISPRO 300 UNITS/3 ML VIAL SQ SCH ×2 (18:01→18:04)
[2018-06-26] MEDS: *HR* Heparin 5,000 UNIT/ML VIAL SQ SCH (18:07)
[2018-06-27] MEDS: 0.9 % Sodium Chloride 1,000 ML IVC SCH ×3 (01:43→08:48)
[2018-06-27] MEDS: *HR* OxyCODONE Immed Rel 5 MG TABLET PO PRN ×3 (03:23→14:55)
[2018-06-27] MEDS: *HR* Heparin 5,000 UNIT/ML VIAL SQ SCH ×2 (05:26→17:09)
[2018-06-27 05:43] LABS: Basophils % 0.1 %; Hematocrit 29.6 % (35.3-44.9); Hemoglobin 9.6 g/dL (11.5-15.4); Immature Granulocytes % 0.4 % (0-4); Lymphocytes % 7.3 %; Mean Corpuscular HGB Conc 32.4 g/dL (31.6-35.5); Mean Corpuscular Hemoglobin 28.9 pg (28.0-33.3); Mean Corpuscular Volume 89.2 fL (83.0-100.0); Mean Platelet Volume 11.1 fL (9.4-12.4); Monocytes # 0.9 K/mcL (0.0-1.3); Monocytes % 6.2 %; Neutrophils # 11.8 K/mcL (1.6-8.9); Platelet Count 243 K/mcL (140-400); Red Blood Count 3.32 M/mcL (3.82-4.97); Red Cell Distribution Width 14.4 % (11.5-14.5)
[2018-06-27 05:56] LABS: BUN/Creatinine Ratio 19 (6-26); Blood Urea Nitrogen 17 mg/dL (6-20); Calcium 8.4 mg/dL (8.6-10.3); Carbon Dioxide 23 mEq/L (23-29); Chloride 104 mEq/L (98-107); Glucose 147 mg/dL (70-105); Osmolality,Calculated 284 (280-300); Potassium 4.3 mEq/L (3.5-5.1); Sodium 135 mEq/L (136-145); eGFR For Non-African Americans > 60 (> 60)
--- NOTE | 2018-06-27 07:49 | Urology Progress Note ---
Date of Encounter: 06/27/18 Time of Encounter: 07:47 - Assessment and Plan (1) Nonfunctioning kidney Current Visit: Yes Status: Acute Assessment and plan: 57-year-old woman status post left robotic nephrectomy. Postoperative day #1. She is doing well. We will have her ambulate. Advance diet to diabetic diet. I will consult physical therapy. Continue sliding scale insulin. Continue subcutaneous heparin. We will continue baby aspirin. (2) Type II diabetes mellitus Current Visit: No Status: Acute Qualifiers: Diabetes mellitus complication status: without complication Qualified Code( s): E11.9 - Type 2 diabetes mellitus without complications Progress Note Narrative: Status post left robotic nephrectomy. Postoperative day #1. She is doing well. Pain seems to be controlled. She is tolerating liquids. She had good urine output overnight. She denies any chest pain or shortness of breath. She has not yet ambulated. Labs are reviewed. H&H has dropped slightly, but she is remaining hemodynamically stable. Objective Initial Vital Signs Temp Pulse Resp BP Pulse Ox 98.3 F 78 18 173/81 97 06/26/18 06:28 06/26/18 06:28 06/26/18 06:28 06/26/18 06:28 06/26/18 06:28 - General physical appearance Present: well developed, well nourished, no distress - Respiratory Present: normal respiratory effort - Abdomen Present: soft (Appropriately tender. Incisions are clean, dry, and intact. There is some ecchymosis around the wounds.) - Genitourinary Urine Appearance: Present: Clear - Integumentary Present: no rash - Labs 06/27/18 04:48 06/27/18 04:48 Diabetes panel 06/27/18 Range/Units 04:48 Sodium 135 L (136-145) mEq/L Potassium 4.3 (3.5-5.1) mEq/L Chloride 104 (98-107) mEq/L Carbon Dioxide 23 (23-29) mEq/L BUN 17 (6-20) mg/dL Creatinine 0.91 (0.60-1.20) mg/dL Glucose 147 H (70-105) mg/dL Calcium 8.4 L (8.6-10.3) mg/dL Calcium panel 06/27/18 Range/Units 04:48 Calcium 8.4 L (8.6-10.3) mg/dL Pituitary panel 06/27/18 Range/Units 04:48 Sodium 135 L (136-145) mEq/L Potassium 4.3 (3.5-5.1) mEq/L Chloride 104 (98-107) mEq/L Carbon Dioxide 23 (23-29) mEq/L BUN 17 (6-20) mg/dL Creatinine 0.91 (0.60-1.20) mg/dL Glucose 147 H (70-105) mg/dL Calcium 8.4 L (8.6-10.3) mg/dL Adrenal panel 06/27/18 Range/Units 04:48 Sodium 135 L (136-145) mEq/L Potassium 4.3 (3.5-5.1) mEq/L Chloride 104 (98-107) mEq/L Carbon Dioxide 23 (23-29) mEq/L BUN 17 (6-20) mg/dL Creatinine 0.91 (0.60-1.20) mg/dL Glucose 147 H (70-105) mg/dL Calcium 8.4 L (8.6-10.3) mg/dL - VTE Documentation of Mechanical Device: Intermittent pneumatic compression device Consult Discharge Plan - Plan Referrals: Hannah Queen MD [Primary Care Provider] - Chris Mendoza MD [Partnered Physician] -
[2018-06-27] MEDS: Insulin LISPRO 300 UNITS/3 ML VIAL SQ SCH ×3 (08:37→17:09)
[2018-06-27] MEDS: Aspirin Enteric Coated 81 MG Tablet PO SCH (08:45)
[2018-06-27] MEDS: Acetaminophen 325 MG TABLET PO PRN (19:56)
[2018-06-28] MEDS: Acetaminophen 325 MG TABLET PO PRN ×3 (03:35→23:34)
[2018-06-28] MEDS: 0.9 % Sodium Chloride 1,000 ML IVC SCH (04:55)
[2018-06-28] MEDS: *HR* Heparin 5,000 UNIT/ML VIAL SQ SCH ×2 (05:52→17:14)
--- NOTE | 2018-06-28 07:23 | Urology Progress Note ---
Date of Encounter: 06/28/18 Time of Encounter: 07:21 - Assessment and Plan (1) Nonfunctioning kidney Current Visit: Yes Status: Acute Assessment and plan: 57-year-old woman status post left robotic nephrectomy, postoperative day #2. I will remove her catheter today. She is encouraged to ambulate 3 times per day. I will discontinue fluids. If her pain is well-controlled and she is able to void, we can anticipate discharge home later today. Alternatively, she can be discharged home tomorrow depending upon how she is doing. (2) Type II diabetes mellitus Current Visit: No Status: Acute Qualifiers: Diabetes mellitus complication status: without complication Qualified Code( s): E11.9 - Type 2 diabetes mellitus without complications Progress Note Narrative: Doing well today. She had a low-grade temperature overnight. I encouraged her to utilize the incentive spirometry. She had difficulty voiding yesterday evening and I replaced the catheter. I removed the catheter today and we will see if she can urinate. She is tolerating solid diet. Pain is adequately controlled. Objective Initial Vital Signs Temp Pulse Resp BP Pulse Ox 98.3 F 78 18 173/81 97 06/26/18 06:28 06/26/18 06:28 06/26/18 06:28 06/26/18 06:28 06/26/18 06:28 - General physical appearance Present: well developed, well nourished, no distress - Respiratory Present: normal respiratory effort - Abdomen Present: soft (Appropriately tender. Incisions are clean, dry, intact. There is ecchymosis located along the left flank from the extraction site.) - Genitourinary Urine Appearance: Present: Clear - Integumentary Present: no rash - Labs 06/27/18 04:48 06/27/18 04:48 - VTE Documentation of Mechanical Device: Intermittent pneumatic compression device Consult Discharge Plan - Plan Referrals: Hannah Queen MD [Primary Care Provider] - Chris Mendoza MD [Partnered Physician] -
--- NOTE | 2018-06-28 07:26 | Discharge Summary ---
Orders not resulted at time of discharge: Pending orders 06/26/18 07:31 US anesthesia pain block [US] Stat 06/26/18 12:03 Surgical Pathology [PTH] Routine Date of Encounter: 07/02/18 Time of Encounter: 07:24 - Discharge Diagnosis (1) Nonfunctioning kidney Priority: Primary Status: Acute (2) Type II diabetes mellitus Priority: Secondary Status: Acute Qualifiers: Diabetes mellitus complication status: without complication Qualified Code( s): E11.9 - Type 2 diabetes mellitus without complications - Hospital Course Hospital course: Ms. Thornton is a 57 year old female was admitted on 06/26/2018 after undergoing a left robotic nephrectomy. On postoperative day #2 she developed a fever to 103 degrees. Workup was obtained which showed concern for atelectasis versus possible pneumonia. She was started on levofloxacin. Her temperature improved. Blood and urine cultures were negative. Her diet was slowly advanced. On postoperative day #4 she noted some drainage from her wound. This was dressed. By postoperative day #5 she was afebrile, tolerating general diet, and ambulating well. At this point she was discharged home. - Time Spent with Patient Total time spent providing and/or coordinating discharge services: Less than 30 minutes Labs on day of discharge: Labs from last 24 hours 06/27/18 06/27/18 06/27/18 16:50 11:41 07:46 POC Glucose 144 H 185 H 117 H 06/26/18 20:50 POC Glucose 213 H - Discharge Medications Prescriptions: Docusate [Colace] 100 mg PO BID #60 capsule levoFLOXacin [Levaquin] 500 mg PO DAILY #7 tablet Oxycodone HCl/Acetaminophen [Percocet 5-325 mg Tablet] 1 each PO Q6H PRN 7 Days #25 tablet PRN Reason: Pain Home Medications: Aspirin Enteric Coated [Aspirin EC] 81 mg PO DAILY 30 Days #30 tablet.dr [Rx] Atorvastatin [Lipitor] 80 mg PO HS 30 Days #30 tablet 12/07/17 [Rx] Nitroglycerin 0.4 mg SL Q5MIN PRN 30 Days #30 tab.subl 12/07/17 [Rx] Metformin HCl [Glucophage] 1,000 mg PO BID 04/28/18 [History] Naproxen [Naprosyn] 500 mg PO BID PRN #20 tablet 05/11/18 [Rx] Carvedilol [Coreg] 6.25 mg PO BID 06/09/18 [History] Citalopram [CeleXA] 20 mg PO DAILY 06/09/18 [History] Docusate [Colace] 100 mg PO BID #60 capsule 06/09/18 [Rx] traZODone [TraZODone] 50 - 100 mg PO HS PRN 06/09/18 [History] Ticagrelor [Brilinta] 90 mg PO DAILY 06/26/18 [History] Docusate [Colace] 100 mg PO BID #60 capsule 06/28/18 [Rx] Oxycodone HCl/Acetaminophen [Percocet 5-325 mg Tablet] 1 each PO Q6H PRN 7 Days #25 tablet 06/28/18 [Rx] levoFLOXacin [Levaquin] 500 mg PO DAILY #7 tablet 07/01/18 [Rx] Allergies/Adverse Reactions: 3 Allergy/AdvReac Type Severity Reaction Status Date / Time No Known Allergies Allergy Verified 06/26/18 08:34 Date of admission: 06/26/18 14:26 Primary care physician: Hannah Queen Consults: 06/27/18 07:50 Consult to Physical Therapy [CONS] Routine Comment: Evaluate, develop and implement POC Reason for Consult: Assist with ambulation Does patient have active BEDREST order?: No Is patient medically & hemodynamically stable?: Yes Patient assessed for mobility or mobilized this visit?: No Discharging clinician: Chris Mendoza Anticipated date of discharge: 07/01/18 Exam Initial Vital Signs Temp Pulse Resp BP Pulse Ox 98.3 F 78 18 173/81 97 06/26/18 06:28 06/26/18 06:28 06/26/18 06:28 06/26/18 06:28 06/26/18 06:28 - General physical appearance Present: well developed, well nourished, no distress - Eyes Absent: icteric - ENT Present: normal nares - Neck Present: trachea midline - Respiratory Present: normal respiratory effort - Cardiovascular Cardiovascular exam IM: RRR - Abdomen Abdomen: Present: soft - Integumentary Present: no rash - Neurologic Present: normal coordination - Musculoskeletal Present: normal gait - Patient Status Disposition: Home, Self-Care Condition: Good Functional capacity at discharge: independent ambulation Overall status at discharge: patient is progressing back to baseline - Discharge Instructions Follow Up With: Hannah Queen MD [Primary Care Provider] - Chris Mendoza MD [Partnered Physician] - 07/11/18 10:30 am (1-2 weeks for wound check.) Additional Instructions: 1. No heavy lifting greater than 20 pounds x 4 weeks. 2. No tub baths x2 weeks. 3. May shower. 4. She should follow up in 2 weeks for postoperative check. 5. She should return for any fevers, chills, nausea, vomiting, or significant swelling/ecchymosis. 6. She can stay on aspirin. 7. She can restart her Brilinta on 07/04/2018. - Diet and Activity Activity: increase activity as tolerated Diet: advance to your usual diet - VTE Documentation of Mechanical Device: Intermittent pneumatic compression device
[2018-06-28] MEDS: Insulin LISPRO 300 UNITS/3 ML VIAL SQ SCH ×3 (07:53→17:14)
[2018-06-28] MEDS: *HR* OxyCODONE Immed Rel 5 MG TABLET PO PRN ×2 (08:00→17:13)
[2018-06-28] MEDS: Aspirin Enteric Coated 81 MG Tablet PO SCH (08:01)
[2018-06-28 15:56] LABS: Basophils % 0.2 %; Eosinophils # 0.2 K/mcL (0.0-0.6); Eosinophils % 2.1 %; Hematocrit 29.7 % (35.3-44.9); Hemoglobin 9.3 g/dL (11.5-15.4); Immature Granulocytes % 0.7 % (0-4); Lymphocytes # 0.7 K/mcL (0.6-4.6); Lymphocytes % 8.4 %; Mean Corpuscular HGB Conc 31.3 g/dL (31.6-35.5); Mean Corpuscular Hemoglobin 28.9 pg (28.0-33.3); Mean Corpuscular Volume 92.2 fL (83.0-100.0); Mean Platelet Volume 11.1 fL (9.4-12.4); Monocytes # 0.7 K/mcL (0.0-1.3); Monocytes % 8.2 %; Neutrophils # 6.9 K/mcL (1.6-8.9); Platelet Count 203 K/mcL (140-400); Red Blood Count 3.22 M/mcL (3.82-4.97); Red Cell Distribution Width 14.6 % (11.5-14.5); Segmented Neutrophils % 80.4 %
[2018-06-28] MEDS: Levofloxacin 500 MG/100 ML 500 MG/100 ML BAG IVPB SCH (16:07)
[2018-06-28 16:19] LABS: BUN/Creatinine Ratio 17 (6-26); Blood Urea Nitrogen 19 mg/dL (6-20); Calcium 8.3 mg/dL (8.6-10.3); Carbon Dioxide 23 mEq/L (23-29); Chloride 105 mEq/L (98-107); Glucose 148 mg/dL (70-105); Osmolality,Calculated 285 (280-300); Potassium 3.8 mEq/L (3.5-5.1); Sodium 135 mEq/L (136-145); eGFR For Non-African Americans 50 (> 60)
[2018-06-28] MEDS: OXYCODONE Oral CONC 10 MG/0.5 ML ORAL.SYG SL PRN (21:26)
[2018-06-29] MEDS: *HR* Heparin 5,000 UNIT/ML VIAL SQ SCH ×2 (04:51→17:28)
[2018-06-29] MEDS: *HR* OxyCODONE Immed Rel 5 MG TABLET PO PRN ×4 (04:53→22:58)
[2018-06-29] MEDS: Insulin LISPRO 300 UNITS/3 ML VIAL SQ SCH ×3 (09:16→17:29)
[2018-06-29] MEDS: Levofloxacin 500 MG/100 ML 500 MG/100 ML BAG IVPB SCH (09:19)
[2018-06-29] MEDS: Aspirin Enteric Coated 81 MG Tablet PO SCH (09:19)
--- NOTE | 2018-06-29 09:22 | Urology Progress Note ---
Date of Encounter: 06/29/18 Time of Encounter: 09:20 - Assessment and Plan (1) Nonfunctioning kidney Current Visit: Yes Status: Acute Assessment and plan: Postoperative day #3 status post left robotic nephrectomy. She developed a fever yesterday. She may have atelectasis versus possible pneumonia. I started her on levofloxacin. We will continue the antibiotic. With blood cell count is normal. What cultures and urine cultures are pending. I will continue inpatient stay for now until her fever has resolved. Continue ambulation. I encouraged her to do the incentive spirometry. (2) Type II diabetes mellitus Current Visit: No Status: Acute Qualifiers: Diabetes mellitus complication status: without complication Qualified Code( s): E11.9 - Type 2 diabetes mellitus without complications (3) Atelectasis Current Visit: Yes Status: Acute Progress Note Narrative: Postop day #3 status post left robotic nephrectomy. She developed a fever yesterday. Chest x-ray showed concern for atelectasis versus early pneumonia. Blood cultures were obtained as was a urine culture. White blood cell count is normal. Her fever has improved. She does have some difficulty taking deep breaths. She is entering well. She is tolerating solid diet. She is voiding well. Objective Initial Vital Signs Temp Pulse Resp BP Pulse Ox 98.3 F 78 18 173/81 97 06/26/18 06:28 06/26/18 06:28 06/26/18 06:28 06/26/18 06:28 06/26/18 06:28 - General physical appearance Present: well developed, well nourished, no distress - Respiratory Present: normal respiratory effort - Abdomen Present: soft (Incisions are clean, dry, and intact. There is large ecchymosis extending from the extraction wound to the left flank.) - Integumentary Present: no rash - Musculoskeletal Present: normal gait - Labs 06/28/18 15:36 06/28/18 15:36 Diabetes panel 06/28/18 Range/Units 15:36 Sodium 135 L (136-145) mEq/L Potassium 3.8 (3.5-5.1) mEq/L Chloride 105 (98-107) mEq/L Carbon Dioxide 23 (23-29) mEq/L BUN 19 (6-20) mg/dL Creatinine 1.12 (0.60-1.20) mg/dL Glucose 148 H (70-105) mg/dL Calcium 8.3 L (8.6-10.3) mg/dL Calcium panel 06/28/18 Range/Units 15:36 Calcium 8.3 L (8.6-10.3) mg/dL Pituitary panel 06/28/18 Range/Units 15:36 Sodium 135 L (136-145) mEq/L Potassium 3.8 (3.5-5.1) mEq/L Chloride 105 (98-107) mEq/L Carbon Dioxide 23 (23-29) mEq/L BUN 19 (6-20) mg/dL Creatinine 1.12 (0.60-1.20) mg/dL Glucose 148 H (70-105) mg/dL Calcium 8.3 L (8.6-10.3) mg/dL Adrenal panel 06/28/18 Range/Units 15:36 Sodium 135 L (136-145) mEq/L Potassium 3.8 (3.5-5.1) mEq/L Chloride 105 (98-107) mEq/L Carbon Dioxide 23 (23-29) mEq/L BUN 19 (6-20) mg/dL Creatinine 1.12 (0.60-1.20) mg/dL Glucose 148 H (70-105) mg/dL Calcium 8.3 L (8.6-10.3) mg/dL - VTE Documentation of Mechanical Device: Intermittent pneumatic compression device Consult Discharge Plan - Plan Additional Instructions: 1. No heavy lifting greater than 20 pounds x 4 weeks. 2. No tub baths x2 weeks. 3. May shower. 4. She should follow up in 2 weeks for postoperative check. 5. She should return for any fevers, chills, nausea, vomiting, or significant swelling/ecchymosis. 6. She can stay on aspirin, but she should hold the Brilinta for 1 week. Referrals: Hannah Queen MD [Primary Care Provider] - Chris Mendoza MD [Partnered Physician] - (2 weeks for wound check.) Prescriptions: Docusate [Colace] 100 mg PO BID #60 capsule Oxycodone HCl/Acetaminophen [Percocet 5-325 mg Tablet] 1 each PO Q6H PRN 7 Days #25 tablet PRN Reason: Pain
[2018-06-30] MEDS: *HR* Heparin 5,000 UNIT/ML VIAL SQ SCH ×2 (06:04→17:52)
[2018-06-30] MEDS: *HR* OxyCODONE Immed Rel 5 MG TABLET PO PRN ×3 (07:24→21:43)
--- NOTE | 2018-06-30 07:27 | Urology Progress Note ---
Date of Encounter: 06/30/18 Time of Encounter: 07:23 - Assessment and Plan (1) Nonfunctioning kidney Current Visit: Yes Status: Acute Assessment and plan: POD #4 s/p left robotic nephrectomy. 1. Continue ambulation. 2. We will see how her pain control is. 3. Will monitor for fevers. Continue levaquin for now. Atelectasis vs possible pneumonia. Continue incentive spirometry. 4. OT c/s and social work consult for discharge planning. (2) Type II diabetes mellitus Current Visit: No Status: Acute Qualifiers: Diabetes mellitus complication status: without complication Qualified Code( s): E11.9 - Type 2 diabetes mellitus without complications (3) Atelectasis Current Visit: Yes Status: Acute Progress Note Narrative: POD #4 from left robotic partial nephrectomy. No fevers overnight. Her wound extraction site has opened slightly and she is having some pain there. She is tolerating diet. She is ambulating. Objective Initial Vital Signs Temp Pulse Resp BP Pulse Ox 98.3 F 78 18 173/81 97 06/26/18 06:28 06/26/18 06:28 06/26/18 06:28 06/26/18 06:28 06/26/18 06:28 - General physical appearance Present: well developed, well nourished, no distress - Respiratory Present: normal respiratory effort - Abdomen Present: soft (appropriately tender, nd. Incisions are okay. Extraction wound has opened slightly at the superior aspect. Ecchymosis is stable across the left flank) - Labs 06/28/18 15:36 06/28/18 15:36 - VTE Documentation of Mechanical Device: Intermittent pneumatic compression device Consult Discharge Plan - Plan Additional Instructions: 1. No heavy lifting greater than 20 pounds x 4 weeks. 2. No tub baths x2 weeks. 3. May shower. 4. She should follow up in 2 weeks for postoperative check. 5. She should return for any fevers, chills, nausea, vomiting, or significant swelling/ecchymosis. 6. She can stay on aspirin, but she should hold the Brilinta for 1 week. Referrals: Hannah Queen MD [Primary Care Provider] - Chris Mendoza MD [Partnered Physician] - (2 weeks for wound check.) Prescriptions: Docusate [Colace] 100 mg PO BID #60 capsule Oxycodone HCl/Acetaminophen [Percocet 5-325 mg Tablet] 1 each PO Q6H PRN 7 Days #25 tablet PRN Reason: Pain
[2018-06-30] MEDS: Insulin LISPRO 300 UNITS/3 ML VIAL SQ SCH ×3 (07:48→16:36)
[2018-06-30] MEDS: Aspirin Enteric Coated 81 MG Tablet PO SCH (09:27)
[2018-06-30] MEDS: Levofloxacin 500 MG/100 ML 500 MG/100 ML BAG IVPB SCH (09:27)
[2018-06-30] MEDS: OXYCODONE Oral CONC 10 MG/0.5 ML ORAL.SYG SL PRN (09:27)
--- NOTE | 2018-06-30 15:08 | Event Note ---
Date of Encounter: 06/30/18 Time of Encounter: 15:05 Postoperative day #4. Patient seen and examined sitting upright in bed in no apparent distress. Patient is tolerating normal diet, voiding without difficulty, and passing flatus. Pain is currently well controlled at the moment. Patient denies uncontrolled pain, chest pain, shortness of breath, or calf pain. Vital signs are currently stable and afebrile. Discussed discharge goals of ambulating without assistance and achieving adequate pain control with oral pain medication. Patient has been evaluated by physical therapy. We will reevaluate in the a.m. to discuss discharge plan.
[2018-07-01] MEDS: *HR* Heparin 5,000 UNIT/ML VIAL SQ SCH (05:31)
[2018-07-01] MEDS: *HR* OxyCODONE Immed Rel 5 MG TABLET PO PRN ×2 (06:18→12:48)
--- NOTE | 2018-07-01 07:50 | Urology Progress Note ---
Date of Encounter: 07/01/18 Time of Encounter: 07:48 - Assessment and Plan (1) Nonfunctioning kidney Current Visit: Yes Status: Acute Assessment and plan: POD #5 s/p left robotic nephrectomy. anticipate d/c home. pathology discussed. (2) Type II diabetes mellitus Current Visit: No Status: Acute Qualifiers: Diabetes mellitus complication status: without complication Qualified Code( s): E11.9 - Type 2 diabetes mellitus without complications Progress Note Narrative: POD #5 s/p left robotic nephrectomy. Extraction site wound with some pain. No fevers. Tolerating diet. Objective Initial Vital Signs Temp Pulse Resp BP Pulse Ox 98.3 F 78 18 173/81 97 06/26/18 06:28 06/26/18 06:28 06/26/18 06:28 06/26/18 06:28 06/26/18 06:28 - General physical appearance Present: well developed, well nourished, no distress - Respiratory Present: normal respiratory effort - Abdomen Present: soft (appropriately tender, incisions are okay. Ecchymosis along left flank is stable. Extraction wound has opened slightly. Mild drainage.) - Labs 06/28/18 15:36 06/28/18 15:36 - VTE Documentation of Mechanical Device: Intermittent pneumatic compression device Consult Discharge Plan - Plan Additional Instructions: 1. No heavy lifting greater than 20 pounds x 4 weeks. 2. No tub baths x2 weeks. 3. May shower. 4. She should follow up in 2 weeks for postoperative check. 5. She should return for any fevers, chills, nausea, vomiting, or significant swelling/ecchymosis. 6. She can stay on aspirin. 7. She can restart her Brilinta on 07/04/2018. Referrals: Hannah Queen MD [Primary Care Provider] - Chris Mendoza MD [Partnered Physician] - (1-2 weeks for wound check.) Prescriptions: Docusate [Colace] 100 mg PO BID #60 capsule levoFLOXacin [Levaquin] 500 mg PO DAILY #7 tablet Oxycodone HCl/Acetaminophen [Percocet 5-325 mg Tablet] 1 each PO Q6H PRN 7 Days #25 tablet PRN Reason: Pain
[2018-07-01] MEDS: Insulin LISPRO 300 UNITS/3 ML VIAL SQ SCH ×2 (09:18→12:30)
[2018-07-01] MEDS: Aspirin Enteric Coated 81 MG Tablet PO SCH (09:19)
[2018-07-01] MEDS: Levofloxacin 500 MG/100 ML 500 MG/100 ML BAG IVPB SCH (09:19)
--- NOTE | 2018-07-01 14:57 | Event Note ---
Date of Encounter: 07/01/18 Time of Encounter: 14:54 In to see patient. Nurse reports patient refuses discharge secondary to transportation issues. Patient's pain control has improved. Discussed concern for patient responsibility secondary to non-medical extension of hospital stay. Reached out to social work via patient's nurse who will provide additional recommendation.
[2018-07-01 15:01] VITALS: BP 134/86
== END 2018-07-01 16:13 | disposition home or self-care (01) | DRG 443 ==
LOC: SAMDAY 06:04 → 3ANU 14:26
PROVIDERS: ADMIT Urology; ATTEND Urology

== ENCOUNTER 2018-08-01 18:16 | Observation (INO) ==
[2018-08-01 18:48] LABS: Basophils # 0.1 K/mcL (0.0-0.2); Basophils % 0.6 %; Eosinophils # 0.3 K/mcL (0.0-0.6); Eosinophils % 3.8 %; Hematocrit 33.6 % (35.3-44.9); Hemoglobin 10.5 g/dL (11.5-15.4); Immature Granulocytes % 0.4 % (0-4); Lymphocytes # 1.9 K/mcL (0.6-4.6); Lymphocytes % 22.8 %; Mean Corpuscular HGB Conc 31.3 g/dL (31.6-35.5); Mean Corpuscular Hemoglobin 28.4 pg (28.0-33.3); Mean Corpuscular Volume 90.8 fL (83.0-100.0); Mean Platelet Volume 11.1 fL (9.4-12.4); Monocytes # 0.6 K/mcL (0.0-1.3); Monocytes % 7.1 %; Neutrophils # 5.3 K/mcL (1.6-8.9); Platelet Count 246 K/mcL (140-400); Red Cell Distribution Width 14.6 % (11.5-14.5); Segmented Neutrophils % 65.3 %
[2018-08-01] MEDS ORDERED: *HR* FentaNYL (PF) 100 MCG/2 ML VIAL IVP ONE (18:48)
--- NOTE | 2018-08-01 18:51 | Emergency Department Note ---
Disposition Clinical Impression: Chest pain Qualifiers: Chest pain type: unspecified Qualified Code(s): R07.9 - Chest pain, unspecified Disposition: Home, Self-Care Condition: Good Forms: ED Satisfaction Letter Chest Pain HPI - General Chief Complaint: ED Chest Pain Stated Complaint: Chest Pain Time Seen by Provider: 08/01/18 18:18 Source: patient Limitations: no limitations Vital Signs Reviewed: Yes Nursing Notes Reviewed: Yes - History of Present Illness HPI Narrative: 58-year-old female presents emergency department with concern for chest pain. She had 5 stents placed in November. Is taking aspirin and Plavix daily. Patient reports that the chest pain as sharp in nature. States it is the same as when she had a previous heart attack. Patient was brought in by EMS. She was given 4 nitroglycerin which did not relieve her symptoms. Patient was also provided with 4 81 mg aspirin prior to arrival and 4 mg of morphine as well. Severity scale (1-10): 8 - Related Data Home Medications Medication Instructions Recorded Confirmed Metformin HCl [Glucophage] 1,000 mg PO BID 04/28/18 06/26/18 Carvedilol [Coreg] 6.25 mg PO BID 06/09/18 06/26/18 Citalopram [CeleXA] 20 mg PO DAILY 06/09/18 06/26/18 traZODone [TraZODone] 50 - 100 mg PO HS PRN 06/09/18 06/26/18 Ticagrelor [Brilinta] 90 mg PO DAILY 06/26/18 06/26/18 Previous Rx's Medication Instructions Recorded Aspirin Enteric Coated [Aspirin EC] 81 mg PO DAILY 30 Days #30 12/07/17 tablet. Atorvastatin [Lipitor] 80 mg PO HS 30 Days #30 tablet 12/07/17 Nitroglycerin 0.4 mg SL Q5MIN PRN 30 Days #30 12/07/17 tab.subl Naproxen [Naprosyn] 500 mg PO BID PRN #20 tablet 05/11/18 Docusate [Colace] 100 mg PO BID #60 capsule 06/09/18 Docusate [Colace] 100 mg PO BID #60 capsule 06/28/18 Oxycodone HCl/Acetaminophen 1 each PO Q6H PRN 7 Days #25 tablet 06/28/18 [Percocet 5-325 mg Tablet] levoFLOXacin [Levaquin] 500 mg PO DAILY #7 tablet 07/01/18 Allergies Allergy/AdvReac Type Severity Reaction Status Date / Time No Known Allergies Allergy Verified 06/26/18 08:34 All systems ED: reviewed and negative except as stated. 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 Absent: respiratory distress, accessory muscle use - Cardiovascular Cardiovascular exam: Present: regular rate, normal rhythm, normal heart sounds - Abdominal Exam Abdominal exam: Present: soft, Non-Tender. Absent: distention, guarding, rebound, rigidity - Extremities Exam Extremities exam: Present: normal capillary refill - Back Exam Back exam: Present: full ROM - Neurological Exam Neurological exam: Present: alert, oriented X3 - Psychiatric Psychiatric exam: Present: normal affect, normal mood - Skin Skin exam: Present: warm, dry, intact, normal color. Absent: rash Course Vital Signs Temperature 98.1 F 08/01/18 18:23 Pulse Rate 67 08/01/18 18:23 Respiratory Rate 16 08/01/18 18:23 Blood Pressure 140/68 08/01/18 18:23 O2 Sat by Pulse Oximetry 100 08/01/18 18:23 Temperature 98.1 F 08/01/18 18:23 Pulse Rate 62 08/01/18 19:06 Respiratory Rate 16 08/01/18 19:06 Blood Pressure 150/67 08/01/18 19:06 O2 Sat by Pulse Oximetry 100 08/01/18 19:06 Oxygen Delivery Oxygen Delivery Room Air Chest Pain - MDM Narrative Medical decision making narrative: 58-year-old female presents emergency department with concern for chest pain. Patient known coronary artery disease with 5 stents placed in November. Do not suspect stent thrombosis at this time. Patient hemodynamically stable. Patient did not respond to nitroglycerin was administered sublingually earlier. We provided fentanyl. No ischemic changes on EKG. Troponin was negative. Chest x -ray no acute cardiopulmonary abnormality per radiology. Patient hemodynamically stable not in acute distress at time of admission. Admitted to Dr. Flynn. Patient placed on 2 L of oxygen initially, for what was thought was oxygenation 89% on room air. However, patient was removed from 2 L of oxygen and had good waveform at 97%. Patient is normally on oxygen. Do not suspect pulmonary embolus at this time as patient is not currently hypoxic, not tachycardic, no hemoptysis, with reports of chest pain similar to previous heart attack. Chest X-Ray 08/01/18 18:18 IMPRESSION: No acute findings. D/ / 08/01/2018 18:44:20 Chris Holt MD / javier Interpreting Provider: Chris Holt MD Vital Signs Temperature 98.1 F 08/01/18 18:23 Pulse Rate 67 08/01/18 18:23 Respiratory Rate 16 08/01/18 18:23 Blood Pressure 140/68 08/01/18 18:23 O2 Sat by Pulse Oximetry 100 08/01/18 18:23 Temperature 98.1 F 08/01/18 18:23 Pulse Rate 62 08/01/18 19:06 Respiratory Rate 16 08/01/18 19:06 Blood Pressure 150/67 08/01/18 19:06 O2 Sat by Pulse Oximetry 100 08/01/18 19:06 Oxygen Delivery Oxygen Delivery Room Air - Lab Data Result diagrams: 08/01/18 18:28 08/01/18 18:28 Lab Results 08/01/18 08/01/18 08/01/18 Range/Units 18:28 18:28 18:28 WBC 8.2 (4.3-11.1) K/mcL RBC 3.70 L (3.82-4.97) M/mcL Hgb 10.5 L (11.5-15.4) g/dL Hct 33.6 L (35.3-44.9) % MCV 90.8 (83.0-100.0) fL MCH 28.4 (28.0-33.3) pg MCHC 31.3 L (31.6-35.5) g/dL RDW 14.6 H (11.5-14.5) % Plt Count 246 (140-400) K/mcL MPV 11.1 (9.4-12.4) fL Immature Gran % 0.4 (0-4) % Seg Neutrophils % 65.3 % Lymphocytes % 22.8 % Monocytes % 7.1 % Eosinophils % 3.8 % Basophils % 0.6 % Neutrophils # 5.3 (1.6-8.9) K/mcL Lymphocytes # 1.9 (0.6-4.6) K/mcL Monocytes # 0.6 (0.0-1.3) K/mcL Eosinophils # 0.3 (0.0-0.6) K/mcL Basophils # 0.1 (0.0-0.2) K/mcL PT 13.2 H (9.4-12.1) Seconds INR 1.2 APTT 33.2 (26.0-36.0) Seconds Sodium 139 (136-145) mEq/L Potassium 3.8 (3.5-5.1) mEq/L Chloride 105 (98-107) mEq/L Carbon Dioxide 26 (23-29) mEq/L BUN 18 (6-20) mg/dL Creatinine 0.82 (0.60-1.20) mg/dL Est GFR ( Amer) > 60 (> 60) Est GFR (Non-Af Amer) > 60 (> 60) BUN/Creatinine Ratio 22 (6-26) Glucose 172 H (70-105) mg/dL Calculated Osmolality 294 (280-300) Calcium 8.9 (8.6-10.3) mg/dL Troponin I < 0.03 (< 0.04) ng/mL - Radiology Data Radiology results reviewed: Yes I reviewed the patient's radiology results. - EKG Data EKG attestation: Yes I reviewed and interpreted this EKG. EKG results narrative: 18:33 Heart rate 63 bpm, RI interval 190 ms, QRS mosque 90 ms, QTC 420 ms, QTC 430, left axis deviation. Sinus rhythm with a ventricular rate of 62 beats for minute. No evidence of any ischemic ST changes new from her previous EKG obtained on April 28, 2018. Heart Score - Score History: Moderately Suspicious EKG: Non Specific repolarisation Disturbance Age: 45-65 Risk Factors: Equal/Greater than 3 risk factor or history of atherosclerotic d isease Troponin: Less than normal limit HEART Score Total: 5
[2018-08-01 18:56] LABS: INR 1.2; Prothrombin Time 13.2 Seconds (9.4-12.1)
[2018-08-01 18:59] LABS: Activated Partial Thrombo Time 33.2 Seconds (26.0-36.0)
[2018-08-01 19:05] LABS: BUN/Creatinine Ratio 22 (6-26); Blood Urea Nitrogen 18 mg/dL (6-20); Calcium 8.9 mg/dL (8.6-10.3); Carbon Dioxide 26 mEq/L (23-29); Chloride 105 mEq/L (98-107); Glucose 172 mg/dL (70-105); Osmolality,Calculated 294 (280-300); Potassium 3.8 mEq/L (3.5-5.1); Sodium 139 mEq/L (136-145); eGFR For Non-African Americans > 60 (> 60)
[2018-08-01 19:06] LABS: Troponin I < 0.03 ng/mL (< 0.04)
[2018-08-01] MEDS ORDERED: Ondansetron 4 MG/2 ML VIAL IVP ONE (19:19)
[2018-08-01] MEDS ORDERED: traZODone 50 MG TABLET PO PRN (19:32)
[2018-08-01] MEDS ORDERED: *HR* Promethazine 25 MG/ML VIAL IVP ONE (19:51)
--- NOTE | 2018-08-01 19:54 | Emergency Department Note ---
Disposition Clinical Impression: Chest pain Qualifiers: Chest pain type: unspecified Qualified Code(s): R07.9 - Chest pain, unspecified Disposition: Admitted As Inpatient Condition: Good Referrals: NONE,PCP [Primary Care Provider] - Forms: ED Satisfaction Letter General Adult HPI - General Chief complaint: ED Chest Pain Stated complaint: Chest Pain Time Seen by Provider: 08/01/18 18:18 Source: patient Limitations: no limitations - History of Present Illness Pain Scale: 8 - Related Data Home Medications Medication Instructions Recorded Confirmed Metformin HCl [Glucophage] 1,000 mg PO BID 04/28/18 06/26/18 Carvedilol [Coreg] 6.25 mg PO BID 06/09/18 06/26/18 Citalopram [CeleXA] 20 mg PO DAILY 06/09/18 06/26/18 traZODone [TraZODone] 50 - 100 mg PO HS PRN 06/09/18 06/26/18 Ticagrelor [Brilinta] 90 mg PO DAILY 06/26/18 06/26/18 Previous Rx's Medication Instructions Recorded Aspirin Enteric Coated [Aspirin EC] 81 mg PO DAILY 30 Days #30 12/07/17 tablet. Atorvastatin [Lipitor] 80 mg PO HS 30 Days #30 tablet 12/07/17 Nitroglycerin 0.4 mg SL Q5MIN PRN 30 Days #30 12/07/17 tab.subl Naproxen [Naprosyn] 500 mg PO BID PRN #20 tablet 05/11/18 Docusate [Colace] 100 mg PO BID #60 capsule 06/09/18 Docusate [Colace] 100 mg PO BID #60 capsule 06/28/18 Oxycodone HCl/Acetaminophen 1 each PO Q6H PRN 7 Days #25 tablet 06/28/18 [Percocet 5-325 mg Tablet] levoFLOXacin [Levaquin] 500 mg PO DAILY #7 tablet 07/01/18 Allergies Allergy/AdvReac Type Severity Reaction Status Date / Time No Known Allergies Allergy Verified 06/26/18 08:34 Constitutional: Denies: fever ( ) Cardiovascular: Reports: chest pain Respiratory: Denies: cough, dyspnea Gastrointestinal: Denies: abdominal pain, nausea, vomiting Genitourinary: Denies: urgency Musculoskeletal: Denies: back pain Neurological: Denies: numbness, paresthesias Past Medical History - Past Medical History Medical history: Reports: coronary artery disease, diabetes, hyperlipidemia, hypertension Surgical history: Reports: other Psychiatric history: Reports: no psych history, anxiety NURSE ORTHOPAEDIC history: Reports: no NURSE ORTHOPAEDIC history - Social History Smoking Status: Never smoker Smokeless Tobacco Status: No Alcohol use: Reports: none Drug use: Reports: none Physical Exam - General Limitations: no limitations General appearance: alert, in no apparent distress Course Vital Signs Temperature 98.1 F 08/01/18 18:23 Pulse Rate 67 08/01/18 18:23 Respiratory Rate 16 08/01/18 18:23 Blood Pressure 140/68 08/01/18 18:23 O2 Sat by Pulse Oximetry 100 08/01/18 18:23 Temperature 98.1 F 08/01/18 18:23 Pulse Rate 62 08/01/18 19:06 Respiratory Rate 16 08/01/18 19:06 Blood Pressure 150/67 08/01/18 19:06 O2 Sat by Pulse Oximetry 100 08/01/18 19:06 Oxygen Delivery Oxygen Delivery Room Air Medical Decision Making - Lab Data Result diagrams: 08/01/18 18:28 08/01/18 18:28 Lab Results 08/01/18 08/01/18 08/01/18 Range/Units 18:28 18:28 18:28 WBC 8.2 (4.3-11.1) K/mcL RBC 3.70 L (3.82-4.97) M/mcL Hgb 10.5 L (11.5-15.4) g/dL Hct 33.6 L (35.3-44.9) % MCV 90.8 (83.0-100.0) fL MCH 28.4 (28.0-33.3) pg MCHC 31.3 L (31.6-35.5) g/dL RDW 14.6 H (11.5-14.5) % Plt Count 246 (140-400) K/mcL MPV 11.1 (9.4-12.4) fL Immature Gran % 0.4 (0-4) % Seg Neutrophils % 65.3 % Lymphocytes % 22.8 % Monocytes % 7.1 % Eosinophils % 3.8 % Basophils % 0.6 % Neutrophils # 5.3 (1.6-8.9) K/mcL Lymphocytes # 1.9 (0.6-4.6) K/mcL Monocytes # 0.6 (0.0-1.3) K/mcL Eosinophils # 0.3 (0.0-0.6) K/mcL Basophils # 0.1 (0.0-0.2) K/mcL PT 13.2 H (9.4-12.1) Seconds INR 1.2 APTT 33.2 (26.0-36.0) Seconds Sodium 139 (136-145) mEq/L Potassium 3.8 (3.5-5.1) mEq/L Chloride 105 (98-107) mEq/L Carbon Dioxide 26 (23-29) mEq/L BUN 18 (6-20) mg/dL Creatinine 0.82 (0.60-1.20) mg/dL Est GFR ( Amer) > 60 (> 60) Est GFR (Non-Af Amer) > 60 (> 60) BUN/Creatinine Ratio 22 (6-26) Glucose 172 H (70-105) mg/dL Calculated Osmolality 294 (280-300) Calcium 8.9 (8.6-10.3) mg/dL Troponin I < 0.03 (< 0.04) ng/mL Attestation Statement - Attestation Attestation: I examined this patient and my medical decision-making was reviewed with the Resident Physician. I agree with the documented findings, disposition and treatment plan as described except to the extent set forth below. 58 year old female presents to the ED with complaints of chest pain with history of cardiac stsents ad N/V with presenation simliar to preivous episodes. We do cardiopulmonary workup and thena dmit to medicine
--- NOTE | 2018-08-01 20:44 | Internal Med History&Physical ---
Date of Encounter: 08/01/18 Time of Encounter: 20:41 Internal Medicine - H&P: HPI Chief complaint: Chest pain Admitted From: Home Plans for Post Hospital Care: Home History of present illness: Racheal Thornton is a 58-year-old woman with a history of hypertension, diabetes and coronary artery disease who had GA in November 2017 undergoing cardiac catheter where she had 4 stents placed presenting now to the emergency room with a complaint of chest pain that started yesterday night and continued into today with a worsening condition associated with nausea and vomiting. She describes this as similar to her last presentation where she was diagnosed with GA. She describes the pain as a sharp stabbing pain but without characteristic radiation. She received loading dose of aspirin and for nitroglycerin pills which did not relieve her symptoms and required an additional 4 mg of morphine for pain relief. At this time she says her pain is better however she still feels nauseated and vomited after eating dinner just now. She denies headache or lightheadedness. No shortness of breath is reported. She reports adherence to her medications and follows up accordingly. Past Med Surg Social Fam HX - Past Medical History Medical history: coronary artery disease, diabetes, hyperlipidemia, hypertension Additional medical history: NSTEMI with STENTS November 2017, Psychiatric history: no psych history, anxiety - Past Surgical History Surgical History: other Additional surgical history: kidney removed 2017 - Social History Smoking Status: Never smoker Smokeless Tobacco Status: No Alcohol use: none Drug use: none - Family History Father Family Member Ethnicity: Non- Living Status: Hx Family Cardiac Disorders: Yes (GA, HTN, HLD) Mother Family Member Ethnicity: Non- Living Status: Hx Family Cardiac Disorders: Yes (CHF) Hx Family Endocrine Disorder: Yes (Hypoglycemia) Brother Adopted: Yes Family Member Ethnicity: Non- Living Status: Still Living Sister Family Member Ethnicity: Non- Living Status: Hx Family Cardiac Disorders: Yes (CABG, HD) Hx Family Endocrine Disorder: Yes (DM) Internal Medicine - H&P: Meds Aspirin Enteric Coated [Aspirin EC] 81 mg PO DAILY 30 Days #30 tablet. [Rx] Atorvastatin [Lipitor] 80 mg PO HS 30 Days #30 tablet 12/07/17 [Rx] Nitroglycerin 0.4 mg SL Q5MIN PRN 30 Days #30 tab.subl 12/07/17 [Rx] Metformin HCl [Glucophage] 1,000 mg PO BID 04/28/18 [History] Naproxen [Naprosyn] 500 mg PO BID PRN #20 tablet 05/11/18 [Rx] Carvedilol [Coreg] 6.25 mg PO BID 06/09/18 [History] Citalopram [CeleXA] 20 mg PO DAILY 06/09/18 [History] Docusate [Colace] 100 mg PO BID #60 capsule 06/09/18 [Rx] traZODone [TraZODone] 50 - 100 mg PO HS PRN 06/09/18 [History] Ticagrelor [Brilinta] 90 mg PO DAILY 06/26/18 [History] Docusate [Colace] 100 mg PO BID #60 capsule 06/28/18 [Rx] Oxycodone HCl/Acetaminophen [Percocet 5-325 mg Tablet] 1 each PO Q6H PRN 7 Days #25 tablet 06/28/18 [Rx] levoFLOXacin [Levaquin] 500 mg PO DAILY #7 tablet 07/01/18 [Rx] Allergy/AdvReac Type Severity Reaction Status Date / Time No Known Allergies Allergy Verified 06/26/18 08:34 All Systems PM: A 10-system review of systems was performed and is negative for pertinent findings except as documented above in the HPI. - Constitutional Vitals: Temp Pulse Resp BP Pulse Ox 98.1 F 59 18 168/58 98 08/01/18 18:23 08/01/18 20:15 08/01/18 20:15 08/01/18 20:15 08/01/18 20:15 Exam: Vitals: Reviewed General: Obese white female sitting up in bed in notable discomfort. Vomitus all over her shirt. Skin: Warm and supple. HEENT: Moist mucous membranes. No conjunctivae pallor. Neck: No lymphadenopathy. No JVD. No carotid bruits. No palpable thyroid. Chest: Normal thoracic expansion. Normal breath sounds. Clear to auscultation. Heart: Normal S1 & S2; rhythmic. No rubs or murmurs. Abdomen: Non-distended, soft and non-tender to palpation. No peritoneal reaction. Extremities: No clubbing, cyanosis or edema. No calf tenderness. Normal distal pulses. Neurological: Awake, alert and oriented to person, place and time. No focal deficits. Psych: Affect appropriate. Internal Med - H&P Results - Labs CBC & Chem 7: 08/01/18 18:28 08/01/18 18:28 Labs: Short CBC 08/01/18 Range/Units 18:28 WBC 8.2 (4.3-11.1) K/mcL Hgb 10.5 L (11.5-15.4) g/dL Hct 33.6 L (35.3-44.9) % Plt Count 246 (140-400) K/mcL Neutrophils # 5.3 (1.6-8.9) K/mcL BMP 08/01/18 18:28 Sodium 139 Potassium 3.8 Chloride 105 Carbon Dioxide 26 BUN 18 Creatinine 0.82 Glucose 172 H Calcium 8.9 Cardiac Enzymes 08/01/18 Range/Units 18:28 Troponin I < 0.03 (< 0.04) ng/mL - Impressions ITS Impressions Chest X-Ray 08/01/18 18:18 IMPRESSION: No acute findings. D/ / 08/01/2018 18:44:20 Chris Holt MD / javier Interpreting Provider: Chris Holt MD - Assessment and plan (1) Chest pain Current Visit: Yes Status: Acute Assessment and plan: Concerning for unstable angina. Initial EKG shows no acute ischemic changes and initial troponin is negative. Due to her risk factors she warrants further observation. We will place on telemetry with continued monitoring and nitroglycerin as needed. Serial troponins. Qualifiers: Chest pain type: unspecified Qualified Code(s): R07.9 - Chest pain, unspecified (2) CAD (coronary artery disease) Current Visit: Yes Status: Acute Assessment and plan: Will continue dual antiplatelet therapy and high intensity statin. Qualifiers: Coronary Disease-Associated Artery/Lesion type: [place] artery [place] vs. transplanted heart: [place] heart Associated angina: with unstable angina Qualified Code(s): I25.110 - Atherosclerotic heart disease of [place] coronary artery with unstable angina pectoris (3) Type II diabetes mellitus Current Visit: Yes Status: Chronic Assessment and plan: Hold metformin for now. Place on insulin sliding scale. Qualifiers: Diabetes mellitus vermin exterminator insulin use: without vermin exterminator use Diabetes mellitus complication status: without complication Qualified Code(s): E11.9 - Type 2 diabetes mellitus without complications (4) HTN (hypertension) Current Visit: Yes Status: Chronic Assessment and plan: We will resume oral agents. Qualifiers: Hypertension type: essential hypertension Qualified Code(s): I10 - Essential (primary) hypertension (5) DVT prophylaxis Current Visit: Yes Status: Acute Assessment and plan: Subcutaneous heparin is indicated. - Time Spent With Patient Total time spent is greater than 50% in coordination of care (as documented) at patient's floor/unit and/or counseling patient: Greater than 35 minutes
[2018-08-01] MEDS ORDERED: *HR* Promethazine 25 MG/ML VIAL IVP PRN (20:47)
[2018-08-02] MEDS: *HR* OxyCODONE/APAP 5/325 TABLET PO PRN ×2 (00:49→06:41)
[2018-08-02] MEDS: *HR* Heparin 5,000 UNIT/ML VIAL SQ SCH ×2 (05:54→17:15)
[2018-08-02] MEDS: Insulin LISPRO 300 UNITS/3 ML VIAL SQ SCH ×4 (07:38→19:58)
[2018-08-02] MEDS: *HR* Ticagrelor 90 MG TABLET PO SCH (08:55)
[2018-08-02] MEDS: Nitroglycerin 0.4 MG TAB.SUBL SL PRN ×4 (08:55→16:32)
[2018-08-02] MEDS: Aspirin Enteric Coated 81 MG Tablet PO SCH (08:55)
--- NOTE | 2018-08-02 09:04 | Internal Med Progress Note ---
Hospitalist Progress Note - Encounter Date of Encounter: 08/02/18 Time of Encounter: 08:40 - Subjective Interval History: Ms Thornton is currently in observation for chest pain. She remains moderate to high risk due to potential for worsening clinical status. Ms Thornton feels "rough." Says she is having midsternal pain "like my heart attack before." Some nausea. No diaphoresis. No cough. No abdominal pain. No fever or chills. Troponins negative. Feels hungry. - Exam Vitals: Temp Pulse Resp BP Pulse Ox 97.9 F 56 16 135/81 96 08/02/18 06:39 08/02/18 06:39 08/02/18 06:39 08/02/18 06:39 08/02/18 06:39 Exam: General: Alert and oriented. Comfortable at this time. Skin: Normal color, no rash, no lesions. H: Normocephalic. EENT: EOMI, pupils reactive. Mucus membranes moist. Cardiovascular: Normal S1 & S2 with no murmur. Pulse regular. Lungs: Normal breath sounds, no wheezes or crackles. Abdomen: Soft, non-tender, no rigidity. Normal bowel sounds. Extremities: No deformity, no edema or tenderness, no joint swelling or clubbing. Neurological: Normal cognition and motor skills. Pulses: Carotid and radial pulses normal +2. Rest of the physical exam is non contributory - Assessment and Plan (1) Chest pain Current Visit: Yes Status: Suspected Assessment and Plan: Has significant hx of CAD Chest pain has recurred. SL nitro given. EKG shows no acute change. Initially I was going to do stress test but patient has recurrent pain. Currently NPO. Cardiology consulted for further recommendations. (2) HTN (hypertension) Current Visit: Yes Status: Chronic Assessment and Plan: Controlled at this time. Continue current meds. (3) DVT prophylaxis Current Visit: Yes Status: Acute (4) Type II diabetes mellitus Current Visit: Yes Status: Chronic Assessment and Plan: Controlled at this time. (5) CAD (coronary artery disease) Current Visit: Yes Status: Acute Assessment and Plan: Continue dual antiplatelets. - Time Spent with Patient Total time spent is greater than 50% in coordination of care (as documented) at patient's floor/unit and/or counseling patient: Internal Medicine: Result - Labs CBC & Chem 7: 08/01/18 18:28 08/01/18 18:28 Labs: Short CBC 08/01/18 Range/Units 18:28 WBC 8.2 (4.3-11.1) K/mcL Hgb 10.5 L (11.5-15.4) g/dL Hct 33.6 L (35.3-44.9) % Plt Count 246 (140-400) K/mcL Neutrophils # 5.3 (1.6-8.9) K/mcL BMP 08/01/18 18:28 Sodium 139 Potassium 3.8 Chloride 105 Carbon Dioxide 26 BUN 18 Creatinine 0.82 Glucose 172 H Calcium 8.9 Cardiac Enzymes 08/01/18 08/02/18 08/02/18 Range/Units 18:28 00:27 05:58 Troponin I < 0.03 < 0.03 < 0.03 (< 0.04) ng/mL - ABG Interpretation ABG results: PT/INR, D-dimer PT 13.2 Seconds (9.4-12.1) H 08/01/18 18:28 - Impressions Impressions Chest X-Ray 08/01/18 18:18 IMPRESSION: No acute findings. D/ / 08/01/2018 18:44:20 Chris Holt MD / javier Interpreting Provider: Chris Holt MD Consult Discharge Plan - Plan Referrals: NONE,PCP [Primary Care Provider] - (1) Chest pain Qualifiers: Chest pain type: chest pain due to myocardial ischemia Ischemic chest pain type: unstable angina pectoris Qualified Code(s): I20.0 - Unstable angina (2) HTN (hypertension) Qualifiers: Hypertension type: essential hypertension Qualified Code(s): I10 - Essential (primary) hypertension (4) Type II diabetes mellitus Qualifiers: Diabetes mellitus halfway insulin use: without local intermodal truck driver use Diabetes mellitus complication status: without complication Qualified Code(s): E11.9 - Type 2 diabetes mellitus without complications (5) CAD (coronary artery disease) Qualifiers: Coronary Disease-Associated Artery/Lesion type: [place] artery [place] vs. transplanted heart: [place] heart Associated angina: with unstable angina Qualified Code(s): I25.110 - Atherosclerotic heart disease of [place] coronary artery with unstable angina pectoris
[2018-08-02] MEDS: Nitroglycerin 1 INCH/GM PACKET TP SCH ×3 (10:21→22:08)
[2018-08-03 02:40] LABS: Hematocrit 31.9 % (35.3-44.9); Hemoglobin 10.3 g/dL (11.5-15.4); Mean Corpuscular HGB Conc 32.3 g/dL (31.6-35.5); Mean Corpuscular Hemoglobin 28.9 pg (28.0-33.3); Mean Corpuscular Volume 89.4 fL (83.0-100.0); Mean Platelet Volume 10.9 fL (9.4-12.4); Platelet Count 230 K/mcL (140-400); Red Blood Count 3.57 M/mcL (3.82-4.97); Red Cell Distribution Width 14.5 % (11.5-14.5)
[2018-08-03 04:25] LABS: BUN/Creatinine Ratio 20 (6-26); Blood Urea Nitrogen 21 mg/dL (6-20); Carbon Dioxide 25 mEq/L (23-29); Chloride 107 mEq/L (98-107); Glucose 126 mg/dL (70-105); Magnesium 1.7 mg/dL (1.6-2.6); Osmolality,Calculated 293 (280-300); Potassium 4.6 mEq/L (3.5-5.1); Sodium 139 mEq/L (136-145); eGFR For Non-African Americans 53 (> 60)
[2018-08-03] MEDS: *HR* Heparin 5,000 UNIT/ML VIAL SQ SCH ×2 (05:02→17:33)
[2018-08-03] MEDS: Nitroglycerin 0.4 MG TAB.SUBL SL PRN ×3 (06:01→06:11)
[2018-08-03] MEDS: Nitroglycerin 1 INCH/GM PACKET TP SCH ×2 (07:24→12:51)
[2018-08-03] MEDS: Insulin LISPRO 300 UNITS/3 ML VIAL SQ SCH ×4 (07:53→21:11)
[2018-08-03] MEDS: *HR* Ticagrelor 90 MG TABLET PO SCH (08:43)
[2018-08-03] MEDS: Aspirin Enteric Coated 81 MG Tablet PO SCH (08:44)
[2018-08-03] MEDS: *HR* OxyCODONE/APAP 5/325 TABLET PO PRN (15:00)
--- NOTE | 2018-08-03 17:46 | Internal Med Progress Note ---
Hospitalist Progress Note - Encounter Date of Encounter: 08/03/18 Time of Encounter: 12:00 - Subjective Interval History: Ms Thornton is currently in observation for chest pain. She remains moderate to high risk due to potential for worsening clinical status. Ms Thornton had some chest pain earlier today and had 3 nitro. No CP now. No SOB. To have second part of stress test tomorrow. No fever or chills at this time. - Exam Vitals: Temp Pulse Resp BP Pulse Ox 98.4 F 61 15 173/78 98 08/03/18 15:45 08/03/18 15:45 08/03/18 15:45 08/03/18 15:45 08/03/18 15:45 Exam: General: Alert and oriented. Comfortable at this time. Skin: Normal color, no rash, no lesions. H: Normocephalic. EENT: EOMI, pupils reactive. Mucus membranes moist. Cardiovascular: Normal S1 & S2 with no murmur. Pulse regular. Not tachycardic. Lungs: Normal breath sounds, no wheezes or crackles. Abdomen: Soft, non-tender, no rigidity. Normal bowel sounds. Extremities: No deformity, no edema or tenderness, no joint swelling or clubbing. Neurological: Normal cognition and motor skills. Pulses: Carotid and radial pulses normal +2. Rest of the physical exam is non contributory - Assessment and Plan (1) Chest pain Current Visit: Yes Status: Suspected Assessment and Plan: Has significant hx of CAD Continues to have symptoms. Had first part of stress test yesterday and second part tomorrow. Continue nitro. (2) HTN (hypertension) Current Visit: Yes Status: Chronic Assessment and Plan: Controlled at this time. Continue current meds. (3) DVT prophylaxis Current Visit: Yes Status: Acute (4) Type II diabetes mellitus Current Visit: Yes Status: Chronic Assessment and Plan: Controlled at this time. (5) CAD (coronary artery disease) Current Visit: Yes Status: Chronic Assessment and Plan: Continue dual antiplatelets. - Time Spent with Patient Total time spent is greater than 50% in coordination of care (as documented) at patient's floor/unit and/or counseling patient: Internal Medicine: Result - Labs CBC & Chem 7: 08/03/18 02:32 08/03/18 03:52 Labs: Short CBC 08/03/18 Range/Units 02:32 WBC 8.7 (4.3-11.1) K/mcL Hgb 10.3 L (11.5-15.4) g/dL Hct 31.9 L (35.3-44.9) % Plt Count 230 (140-400) K/mcL [facility] 08/03/18 03:52 Sodium 139 Potassium 4.6 Chloride 107 Carbon Dioxide 25 BUN 21 H Creatinine 1.07 Glucose 126 H Calcium 9.0 - ABG Interpretation ABG results: PT/INR, D-dimer PT 13.2 Seconds (9.4-12.1) H 08/01/18 18:28 Consult Discharge Plan - Plan Referrals: NONE,PCP [Primary Care Provider] - (1) Chest pain Qualifiers: Chest pain type: chest pain due to myocardial ischemia Ischemic chest pain type: unstable angina pectoris Qualified Code(s): I20.0 - Unstable angina (2) HTN (hypertension) Qualifiers: Hypertension type: essential hypertension Qualified Code(s): I10 - Essential (primary) hypertension (4) Type II diabetes mellitus Qualifiers: Diabetes mellitus intermodal customer service insulin use: without alf use Diabetes mellitus complication status: without complication Qualified Code(s): E11.9 - Type 2 diabetes mellitus without complications (5) CAD (coronary artery disease) Qualifiers: Coronary Disease-Associated Artery/Lesion type: [place] artery [place] vs. transplanted heart: [place] heart Associated angina: with unstable angina Qualified Code(s): I25.110 - Atherosclerotic heart disease of [place] coronary artery with unstable angina pectoris
[2018-08-04] MEDS: *HR* Heparin 5,000 UNIT/ML VIAL SQ SCH ×2 (05:10→16:00)
[2018-08-04] MEDS ORDERED: Regadenoson 0.4 MG/5 ML SYRINGE IVP ONE (05:53)
[2018-08-04] MEDS: Nitroglycerin 1 INCH/GM PACKET TP SCH ×2 (06:27→12:00)
[2018-08-04] MEDS: Nitroglycerin 0.4 MG TAB.SUBL SL PRN ×2 (09:25→23:30)
[2018-08-04] MEDS: *HR* Ticagrelor 90 MG TABLET PO SCH (09:27)
[2018-08-04] MEDS: Insulin LISPRO 300 UNITS/3 ML VIAL SQ SCH ×4 (09:27→20:52)
[2018-08-04] MEDS: Aspirin Enteric Coated 81 MG Tablet PO SCH (09:28)
--- NOTE | 2018-08-04 11:52 | Cardiology Consult Note ---
<Hattie Logan Sandi - Last Filed: 08/04/18 12:22> Date of Encounter: 08/04/18 Time of Encounter: 11:30 Assessment and Plan (1) Chest pain Current Visit: Yes Status: Acute Patient presented with symptoms concerning for unstable angina. Troponin negative x3. No ST/T wave changes noted on ECG. Chest pain free upon exam. Nuclear stress (2-day) suggestive of small anterolateral infarct with moderate myke-infarct ischemia; also with fixed basal anterolateral perfusion defect of small size and intensity; reversible mid-basal anterior and anterolateral perfusion defect of moderate size and moderate intensity, SDS=5. Gated EF=61% Given symptoms concerning for UA, recent premature interruption in DAPT, and abnormal stress test; recommend LHC with possible PCI; alternatives, risks, and benefits discussed, she is agreeable to proceed. Continue asa, statin, BB, and brilinta. Start nitrates now. Further recommendations to follow. Qualifiers: Chest pain type: chest pain due to myocardial ischemia Ischemic chest pain type: unstable angina pectoris Qualified Code(s): I20.0 - Unstable angina (2) CAD (coronary artery disease) Current Visit: Yes Status: Chronic Plan as above, Cardio consult for abnormal stress Hx of DC s/p PCI in November 2017. S/p PCI with CAROLA to Ramus, mid and distal LAD, and diagonal. Moderate CAD remaining. Of note, recent interruption in DAPT for left nephrectomy (~ 10 days). Continue asa, statin, BB, and brilita. Add nitrates. Qualifiers: Coronary Disease-Associated Artery/Lesion type: [place] artery [place] vs. transplanted heart: [place] heart Associated angina: with unstable angina Qualified Code(s): I25.110 - Atherosclerotic heart disease of [place] coronary artery with unstable angina pectoris (3) Solitary kidney Current Visit: Yes Status: Acute Recent left nephrectomy for calcified, non-functioning kidney on 06/26. Kidney function stable. Discussion w patient/family: The assessment and plan as outlined above was discussed with the patient and/or family members who expressed understanding and agreement. All questions were answered. Thank you for involving us in the care of your patient. Please call with any questions. The patient will be discussed and reviewed with Dr. Luis; changes to be made accordingly. History of Present Illness Consult date: 08/04/18 Requesting physician: Pravin Mccauley Consult reason: abnormal stress test, unstable angina Chief complaint: chest pain History of present illness: Ms. Thornton is a 58 year old female with PMHx significant of CAD s/p DC (DC, November 2017), DMII, HTN, morbid obesity, and recent left nephrectomy who presented to the ED after an episode of chest discomfort on Saturday evening. Patient reports chest pain occurred while walking from her kitchen to the living room--chest pain described as midsternal pressure/heaviness with radiation down left arm; pain lasts for ~20 minutes. Pain relived after given SL NTG, asa, and IV morphine in squad. Patient reports symptoms are similar to previous DC in November. Upon arrival to ED, ECG without acute ischemic changes, troponin negative x3. Of note, she recently held asa (x4 days) and Brilinta (~10 days) in the perioperative period (OR date ) for left nephrectomy (non-function ing, calcified). Per last outpatient. Cardiology consulted today for abnormal stress test. Prior CV testing: TTE 12/05/17: EF 60%, mild LVDD, mild MR, no PH, normal wall motion LHC 12/05/17: EF 40%; s/p successful PTCA/CAROLA to Ramus, mid and distal LAD and diagonal; otherwise moderate CAD (LCx 60%). Past Med Surg Social Fam HX - Past Medical History Attestation: Yes The following information was validated with the patient. Source: patient Medical history: coronary artery disease, diabetes, hyperlipidemia, hypertension, renal disease Additional medical history: NSTEMI with STENTS November 2017, Psychiatric history: no psych history, anxiety - Past Surgical History Surgical History: hysterectomy, other Additional surgical history: kidney removed 2017 - Social History Smoking Status: Never smoker Smokeless Tobacco Status: No Alcohol use: none Drug use: none - Family History Father Family Member Ethnicity: Non- Living Status: Hx Family Cardiac Disorders: Yes (DC, HTN, HLD) Mother Family Member Ethnicity: Non- Living Status: Hx Family Cardiac Disorders: Yes (CHF) Hx Family Endocrine Disorder: Yes (Hypoglycemia) Brother Adopted: Yes Family Member Ethnicity: Non- Living Status: Still Living Sister Family Member Ethnicity: Non- Living Status: Hx Family Cardiac Disorders: Yes (CABG, HD) Hx Family Endocrine Disorder: Yes (DM) Medications and Allergies Aspirin Enteric Coated [Aspirin EC] 81 mg PO DAILY 30 Days #30 tablet. 12/07/17 [Rx] Atorvastatin [Lipitor] 80 mg PO HS 30 Days #30 tablet 12/07/17 [Rx] Nitroglycerin 0.4 mg SL Q5MIN PRN 30 Days #30 tab.subl 12/07/17 [Rx] Metformin HCl [Glucophage] 1,000 mg PO BID 04/28/18 [History] Carvedilol [Coreg] 6.25 mg PO BID 06/09/18 [History] traZODone [TraZODone] 50 mg PO HS PRN 06/09/18 [History] Ticagrelor [Brilinta] 90 mg PO DAILY 06/26/18 [History] Docusate [Colace] 100 mg PO BID #60 capsule 06/28/18 [Rx] Allergy/AdvReac Type Severity Reaction Status Date / Time No Known Allergies Allergy Verified 08/01/18 21:14 All Systems Review: The remainder of the systems were reviewed and are negative - Cardiovascular Cardiovascular: as per HPI Physical Examination Vital Signs, Last 4 Hours Temp Pulse Resp BP Pulse Ox 08/04/18 09:11 97.8 F 58 16 177/87 99 General: Conversant, No Apparent Distress, Other (morbidly obese) HEENT: Atraumatic, Normocephaly, Mucus Membranes Moist Neck: No JVD, Normal carotid pulses Cardiac: Reg Rate and Rhythm, Normal S1 and S2, No Murmur Lungs: Normal Breath Sounds, No Wheeze, Rales, Rhonchi Neuro: Alert and responsive, No focal deficits noted Abdomen: Soft, Non-Tender Skin: No rashes noted on visualized skin Musculoskeletal: No Chest Wall Tenderness Extremities: No Clubbing, No Cyanosis, No Edema, Normal Pulses Results 08/03/18 02:32 08/03/18 03:52 Active Medications Aspirin (Aspirin Ec) 81 mg PO DAILY [facility] Stop: 02/01/19 09:01 Last Admin: 08/04/18 09:28 Dose: 81 mg Atorvastatin Calcium (Lipitor) 80 mg PO HS [facility] Stop: 01/31/19 21:01 Last Admin: 08/03/18 20:23 Dose: 80 mg Carvedilol (Coreg) 6.25 mg PO BIDWM [facility]; Protocol Stop: 01/31/19 21:01 Last Admin: 08/04/18 09:26 Dose: Not Given Citalopram Hydrobromide (Celexa) 20 mg PO DAILY [facility] Stop: 02/01/19 09:01 Last Admin: 08/04/18 09:27 Dose: 20 mg Docusate Sodium (Colace) 100 mg PO BID [facility]; Protocol Stop: 01/31/19 21:01 Last Admin: 08/04/18 09:27 Dose: 100 mg Heparin Sodium (Porcine) (Heparin) 5,000 unit SQ Q12HCO [facility] Stop: 02/01/19 06:01 Last Admin: 08/04/18 05:10 Dose: 5,000 unit Insulin Human Lispro (Humalog) 0 units SQ HS [facility]; Protocol Stop: 02/01/19 21:01 Last Admin: 08/03/18 21:11 Dose: Not Given Insulin Human Lispro (Humalog) 0 units SQ TIDAC [facility]; Protocol Stop: 02/01/19 07:31 Last Admin: 08/04/18 11:59 Dose: Not Given Isosorbide Mononitrate (Imdur) 30 mg PO DAILY [facility] Stop: 02/03/19 12:16 Nitroglycerin (Nitroglycerin) 0.4 mg SL Q5MIN PRN PRN Reason: Chest Pain Stop: 01/31/19 19:33 Last Admin: 08/04/18 09:25 Dose: 0.4 mg Nitroglycerin (Nitroglycerin) 1 inch TP Q6HNTG [facility] Stop: 02/01/19 17:46 Last Admin: 08/04/18 06:27 Dose: Not Given Oxycodone/Acetaminophen (Percocet 5/325) 1 each PO Q6H PRN PRN Reason: Pain Stop: 01/31/19 19:33 Last Admin: 08/03/18 15:00 Dose: 1 each Promethazine HCl (Phenergan) 12.5 mg IVP Q6HR PRN PRN Reason: Nausea And Vomiting Stop: 01/31/19 20:48 Ticagrelor (Brilinta) 90 mg PO DAILY [facility] Stop: 02/01/19 09:01 Last Admin: 08/04/18 09:27 Dose: 90 mg Trazodone HCl (Trazodone) 50 mg PO HS PRN PRN Reason: Insomnia Stop: 01/31/19 19:33 - Imaging and Cardiology Stress Test: report reviewed Echo: report reviewed Cardiac cath: report reviewed Other Results: 12 hour tele: avg HR=63 SR. No significant event noted. - EKG Interpretation EKG results cardiology: personally reviewed Consult Discharge Plan - Plan Referrals: NONE,PCP [Primary Care Provider] - <Chente Luis - Last Filed: 08/04/18 16:52> Date of Encounter: 08/04/18 - Attending Attestation I have personally performed a face to face evaluation on this patient. I have reviewed and agree with the documented findings and care plan as documented by the [employer]. History and Exam by me shows: 58-year-old pleasant female with history of CAD presenting with angina. Nuclear stress (2-day) suggestive of small anterolateral infarct with moderate myke-infarct ischemia. AAOX3 in NAD at the bedside Hemodynamically stable Cardiopulmonary exam revealed S1 and S2 , no murmur, clear lungs Impression/plan: Unstable angina. For [facility] today Further recommendations to follow Chente Ellison MD Assessment and Plan Discussion w patient/family: The assessment and plan as outlined above was discussed with the patient and/or family members who expressed understanding and agreement. All questions were answered. Thank you for involving us in the care of your patient. Please call with any questions. History of Present Illness History of present illness: Ms. Thornton is a 58 year old female All Systems Review: The remainder of the systems were reviewed and are negative Physical Examination Vital Signs, Last 4 Hours Temp Pulse Resp BP Pulse Ox 08/04/18 15:00 97.7 F 59 17 138/76 95 Results 08/03/18 02:32 08/03/18 03:52
[2018-08-04] MEDS ORDERED: Isosorbide MONOnitrate (24 HR) 30 MG TAB.ER.24H PO SCH (12:15)
[2018-08-04] MEDS ORDERED: Verapamil 5 MG/2 ML VIAL ONE (15:21)
[2018-08-04] MEDS ORDERED: Heparin 1,000 UNITS/500 mL 500 ML ONE (15:21)
[2018-08-04] MEDS ORDERED: ISOVUE-370 200 ML INFUS..BTL ONE (15:21)
[2018-08-04] MEDS ORDERED: *HR* Heparin 10,000 UNIT/10 ML VIAL ONE (15:21)
[2018-08-04] MEDS ORDERED: Nitroglycerin 1,000 MCG/10 ML VIAL IV ONE (15:22)
[2018-08-04] MEDS ORDERED: 0.9 % Sodium Chloride 1,000 ML ONE ×2 (15:22)
--- NOTE | 2018-08-04 15:47 | Internal Med Progress Note ---
Hospitalist Progress Note - Encounter Date of Encounter: 08/04/18 Time of Encounter: 11:00 - Subjective Interval History: Patient was seen and examined at bedside patient did have another episode of chest pain this morning denied any active chest pain now denied any shortness of breath - Exam Vitals: Temp Pulse Resp BP Pulse Ox 97.7 F 59 17 138/76 95 08/04/18 15:00 08/04/18 15:00 08/04/18 15:00 08/04/18 15:00 08/04/18 15:00 Exam: Gen: Alert, awake, Oriented to time,place and person Chest: Diminished breath sounds B/L, No wheezing, No crackles, No rales Heart: S1S2+ RRR No murmurs Abd: Soft, NT, BS +, No organomegaly Ext: No edema, pulses are palpable, No calf tenderness Neuro : Benign findings Skin: No rash. - Assessment and Plan (1) Chest pain Current Visit: Yes Status: Suspected Assessment and Plan: Cont ASa, Statin and BB started on Imdur Stress test came back as abnormal consulted Cardiology scheduled for [facility] today (2) HTN (hypertension) Current Visit: Yes Status: Chronic Assessment and Plan: Fairly controlled increased Coreg to 12.5 BID, added Imdur If still not well controlled will add Lisinopril IV hydralazine PRN (3) DVT prophylaxis Current Visit: Yes Status: Acute Assessment and Plan: Subcutaneous heparin (4) Type II diabetes mellitus Current Visit: Yes Status: Chronic Assessment and Plan: Stable BS on ISS ADA diet (5) CAD (coronary artery disease) Current Visit: Yes Status: Chronic - Time Spent with Patient Total time spent is greater than 50% in coordination of care (as documented) at patient's floor/unit and/or counseling patient: Internal Medicine: Result - Labs CBC & Chem 7: 08/03/18 02:32 08/03/18 03:52 - ABG Interpretation ABG results: PT/INR, D-dimer PT 13.2 Seconds (9.4-12.1) H 08/01/18 18:28 Consult Discharge Plan - Plan Referrals: NONE,PCP [Primary Care Provider] - (1) Chest pain Qualifiers: Chest pain type: chest pain due to myocardial ischemia Ischemic chest pain type: unstable angina pectoris Qualified Code(s): I20.0 - Unstable angina (2) HTN (hypertension) Qualifiers: Hypertension type: essential hypertension Qualified Code(s): I10 - Essential (primary) hypertension (4) Type II diabetes mellitus Qualifiers: Diabetes mellitus snf insulin use: without snf use Diabetes mellitus complication status: without complication Qualified Code(s): E11.9 - Type 2 diabetes mellitus without complications (5) CAD (coronary artery disease) Qualifiers: Coronary Disease-Associated Artery/Lesion type: [place] artery [place] vs. transplanted heart: [place] heart Associated angina: with unstable angina Qualified Code(s): I25.110 - Atherosclerotic heart disease of [place] coronary artery with unstable angina pectoris
[2018-08-04] MEDS ORDERED: *HR* FentaNYL (PF) 100 MCG/2 ML VIAL ONE (16:04)
[2018-08-04] MEDS ORDERED: *HR* Midazolam HCl 5 MG/5 ML VIAL IVP ONE (16:05)
--- NOTE | 2018-08-04 16:14 | Pre-Sedation Evaluation ---
Pre-sedation evaluation - Pre-sedation checklist Date of procedure: 08/04/18 Procedure: Heart cath Recent Vitals: Last Vital Signs Temp 97.7 F 08/04/18 15:00 Pulse 59 08/04/18 15:00 Resp 17 08/04/18 15:00 BP 138/76 08/04/18 15:00 Pulse Ox 95 08/04/18 15:00 H&P (including ROS) documented in medical record: Yes Previous reaction to sedatives/anesthetics: No Dietary Status: NPO 6 hours prior to procedure Dentition: No loose teeth or bridges, dentures removed ASA Classification *see protocol: CLASS II-Mild systemic disease Plan of Care: Pt appropriate candidate for procedure/moderate/conscious sedation, Risks/benefits of procedure/sedation discussed w/ patient/family Cardiac Registry (Cardio Only) - Functional Capacity Functional Capacity: >=4 METS with symptoms - Clincal Frailty Scale Clinical Frailty Scale: Vulnerable
--- NOTE | 2018-08-04 17:04 | Invasive Diagnostic Lab Proc ---
Name: Racheal Thornton Date of Study: 08/04/2018 Date: 1960 Ht: 64.2in Medical Record#: [id number] Age: 58 Wt: 229.28lb Gender: Female BSA: 2.08 Order #: [id number] BMI: 39.14 Physicians Procedure Physician: Bg Escamilla MD, [facility] Referring MD: Referring MD: Staff Name Position Time In Florence King RT (R) Scrub 04:01 PM Mayra Shoemaker RN Monitor 04:01 PM Vishnu Ordonez RN Pipe Washer 04:01 PM Indications Indication Abnormal Test - Stress Procedures Performed Procedure L HRT ARTERY/VENTRICLE ANGIO Pre-Procedure Checklist Informed consent is complete signed and on chart. H&P is on chart. ID band is on and ID verified with patient. Patient NPO for procedure The procedure was described for the patient and questions were answered. Blood Pressure: 176/91 ECG is on chart. Rhythm: NSR Plan of Care Patient will tolerate the procedure without complications. Adequate level of comfort will be maintained. Hemodynamics will remain stable Patient will recover from procedure without complications. Respiratory function will be maintained. Cardiac rhythm will remain stable. Patient temperature will be maintained. Patient and/or family have verbalized understanding of the procedure. Patient Education Chief Complaint/Reason for Test: Cardiac Cath Developmental Category: Adult (18-64 years) Developmentally Appropriate for Age: Yes Learning Barriers: None Education Needs: Procedure Education Method: Verbal Information Taught: Cardiac Cath Educational Evaluation: Able to repeat information Intravenous Access Time IV Size Location DC'd Fluid/Drip Rate Units RN 04:07 PM 20g 1 1/" Patent On Arrival Lt Antecubital 0.9NaCl ml/hr Allergies No Known Allergies Vital Signs Time BP (mmHg) HR (bpm) O2 Sat. RR (bpm) LOC 04:02 PM / % 5 = Fully awake and oriented or at pre-proc level 04:02 PM / % 4 = Oriented but drowsy 04:19 PM / % 4 = Oriented but drowsy 04:03 PM 179 / 94 69 100 % 17 04:07 PM 176 / 91 61 99 % 15 04:12 PM 183 / 92 62 99 % 17 04:17 PM 156 / 82 77 91 % 21 04:22 PM 135 / 76 64 96 % 17 04:27 PM 147 / 79 71 95 % 14 04:32 PM 140 / 79 68 95 % 20 04:37 PM 153 / 86 71 96 % 20 Procedural Medications Time Medication Dose Units Method Given By 04:02 PM Oxygen 2 L/min nasal cannula Vishnu Ordonez RN 04:06 PM Versed 2 mg Intravenous Vishnu Ordonez RN 04:06 PM Fentanyl 50 mcg Intravenous Vishnu Ordonez RN 04:10 PM Versed 1 mg Intravenous Vishnu Ordonez RN 04:10 PM Fentanyl 25 mcg Intravenous Vishnu Ordonez RN 04:23 PM Lidocaine 2% 19 ml Subcutaneous Bg Escamilla MD, FACC 04:38 PM Ancef 1 gram Intravenous Vishnu Ordonez RN ASA Classification: CLASS II- Mild systemic disease (i.e. well-controlled diabetes, hypertension, asthma, cigarette smoking) Yifan Score Preprocedure Postprocedure Activity 2- Moves 4 extremities sustained head lift Activity 2- Moves 4 extremities sustained head lift Circulation 2- SBP +/= 20 points of pre-anesthetic level Circulation 2- SBP +/= 20 points of pre-anesthetic level Consciousness 2- Awake and alert oriented x 3 Consciousness 2- Awake and alert oriented x 3 O2 Saturation 2- Able to maintain O2 satruation of 92% on room air O2 Saturation 2- Able to maintain O2 satruation of 92% on room air Respiratory 2- Able to deep breathe and cough well Respiratory 2- Able to deep breathe and cough well Total Score 10 Total Score 10 Contrast Agent: Isovue Diagnostic Contrast: 52 ml Total Contrast: 52 ml Fluoro Dose: 31 mGy Procedure Log Time Note Enter By 04:01 PM Meet and greet completed kmavis 04:01 PM Vitals capture started with the following parameters, Patient=Adult, Interval=5 min, Initial Ynklgdah=878 mmHg, Deflation Rate=3 mmHg, Cuff placed on Right Arm 04:01 PM 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 Bilateral groin prepped with Chloraprep by Florence King), then patient was draped. Skin intact. [facility] 04:02 PM Physician arrived 16:01 [facility] : PM Sign in performed according to hospital policy. Informed consent was obtained. [facility] 04:02 PM Procedure start 16:02 [facility] :02 PM Time: 16:02 Oxygen on at 2 L/min per nasal cannula by [facility] Time: 16:02 Patient comfortable and pain free: Yes [facility] : PM Time: 16:02LOC: 5 = Fully awake and oriented or at pre-proc level [facility] 04:03 PM HR=69 bpm, AJZP=538/94 mmhg, RhA4=968.0 %, Resp=17 B/min, EtCO2=38 mmHg, Comment=nsr 04:06 PM Time: 16:06 Versed 2 mg Intravenous Given by Vishnu Ordonez RN [facility] 04:06 PM Time: 16:06 Fentanyl 50 mcg Intravenous Given by [facility]nu [facility]donez [facility] 04:06 PM Recorded ECG: HR=61 Condition=Condition 1 04:06 PM Case Start 04:06 PM CathStat 04:07 PM HR=61 bpm, VKMG=268/91 mmhg, SpO2=99.0 %, Resp=15 B/min, EtCO2=34 mmHg, Comment=nsr 04:10 PM Time: 16:10 Versed 1 mg Intravenous Given by Vishnu Ordonez RN 04:10 PM Time: 16:10 Fentanyl 25 mcg Intravenous Given by [facility]nu [facility]donez [facility] 04:11 PM Clinical Presentation: Unstable angina [facility] 04:12 PM HR=62 bpm, QXLI=617/92 mmhg, SpO2=99.0 %, Resp=17 B/min, EtCO2=37 mmHg, Comment=nsr 04:13 PM Pressure channel 1 zeroed. 04:15 PM ASA Class CLASS II- Mild systemic disease (i.e. well-controlled diabetes, hypertension, asthma, cigarette smoking) [facility] 04:17 PM HR=77 bpm, QGMI=404/82 mmhg, SpO2=91.0 %, Resp=21 B/min, EtCO2=36 mmHg, Comment=nsr 04:19 PM Time: 16:02 Patient comfortable and pain free: Yes kmavis 04:19 PM Time: 16:02LOC: 4 = Oriented but drowsy kmavis 04:22 PM HR=64 bpm, QRVX=417/76 mmhg, SpO2=96.0 %, Resp=17 B/min, EtCO2=43 mmHg, Comment=nsr 04:23 PM Time out was performed according to hospital policy. Conscious sedation and anesthesia was achieved (see medication log with in this report above) kmavis 04:24 PM Time: 16:23 19 ml Lidocaine 2% to right groin Subcutaneous Given by Bg Escamilla MD, [facility] kmavis 04:25 PM Recorded Pressure: Ao, HR=69, Condition=Condition 1 (Aorta) Ao 118/82/98 04:25 PM Access obtained by percutaneous puncture. 5Fr 10cm Terumo [place] sheath placed in right Femoral artery. [id number] kmavis 04:25 PM 5Fr FL 4 [facility] PM 0.035 145cm Navilyst 3mmJ wire [id number] avis 04:25 PM LCA angiography performed in multiple views. kmavis 04:27 PM HR=71 bpm, YRFI=314/79 mmhg, SpO2=95.0 %, Resp=14 B/min, EtCO2=44 mmHg, Comment=nsr 04:28 PM Recorded Pressure: Ao, HR=71, Condition=Condition 1 (Aorta) Ao 122/87/103 04:28 PM Catheter removed kmavis 04:29 PM 5Fr FR 4 catheter [facility] the [facility] PM RCA angiography performed in multiple views. kmavis 04:30 PM Catheter removed kmavis 04:30 PM 5Fr Pigtail catheter [facility] the wire [facility] 04[facility] PM Pressure channel 1 zero failed. 04:31 PM Catheter crossed the aortic valve and was selectively placed in the left ventricle. Pressures recorded on pullback for left heart catheterization. kmavis 04:31 PM Pressure channel 1 zeroed. 04:31 PM Recorded Pressure: LV, HR=69, Condition=Condition 1 (Left Ventricle) LV 122/-6/5 04:31 PM Recorded Pressure: LV, Ao, HR=74, Condition=Condition 1 (Left Ventricle) LV 123/-7/5, (Aorta) Ao 119/64/85 04:32 PM HR=68 bpm, HBQT=165/79 mmhg, SpO2=95.0 %, Resp=20 B/min 04:33 PM Bolus angiogram of left Ventricle complete: 10 ml/sec for a total of 30 mls kmavis 04:33 PM Catheter removed kmavis 04:34 PM Bolus angiogram of right Femoral complete: 4 ml/sec for a total of 7 mls kmavis 04:34 PM Coronary Dominance: right kmavis 04:35 PM Time: 16:19 Patient comfortable and pain free: Yes kmavis 04:35 PM Time: 16:19LOC: 4 = Oriented but drowsy kmavis 04:35 PM Procedure completed at 16:35 08/04/2018 kmavis 04:35 PM Did you address TYREE flow and Dominance? Yes kmavis 04:36 PM Sign out completed: Radiation Dose 283.47 mGy, 31.23 Gy/cm2 Fluoro Time: 1.5 Isovue 370 - 200ml contrast 52 ml given by Bg Escamilla MD, FACC. Complications: None. The patient was discharged out of the produce laborer in stable condition. Cardiac Rehab Consult needed: NoConfirmed administered medications: Yes kmavis 04:36 PM Isovue 370 - 200ml,1 Bottle(s) used. kmavis 04:36 PM Arterial sheath pulled, Mynx closure device used and was Successful [id number] S/N. kmavis 04:37 PM Estimated Blood Loss: minimal kmavis 04:37 PM Post ECG NSR kmavis 04:37 PM Post Blood Pressure 140/79 kmavis 04:37 PM HR=71 bpm, ZMOE=362/86 mmhg, SpO2=96 %, Resp=20 B/min 04:38 PM Time: 16:38 Ancef 1 gram Intravenous Given by Vishnu Ordonez RN kmavis 04:40 PM Information taught Cardiac Cath and Mynx kmavis 04:40 PM Education needs Procedure, Plan of Care, Disease Process, and Responsibilities of Patient in Care kmavis 04:40 PM Learning barriers :None kmavis 04:40 PM Education Methods Verbal kmavis 04:40 PM Education evaluation Able to repeat information kmavis 04:40 PM Site status No bleeding/hematoma - Rt Groin as reported by Florence King RT (R) at 16:40 kmavis 04:40 PM Opsite applied kmavis 04:41 PM Plavix, Effient or Brilinta given No kmavis 04:41 PM Delay to floor No kmavis 04:41 PM Patient out of room: 16:41 kmavis 04:41 PM Complications: None kmavis 04:42 PM Lesion found in Mid LAD. Pre Stenosis: 30 Pre TYREE Flow: kmavis 04:42 PM Lesion found in 1st Diagonal. Pre Stenosis: 65 Pre TYREE Flow: kmavis 04:42 PM Lesion found in Mid Circumflex. Pre Stenosis: 50 Pre TYREE Flow: kmavis 04:44 PM Lesion found in Right PDA. Pre Stenosis: 20 Pre TYREE Flow: kmavis 04:45 PM Lesion found in RPAV. Pre Stenosis: 30 Pre TYREE Flow: kmavis 04:45 PM Report given to Ignacia HIGGINS Pt taken to 3B Room #32. 16:45 kmavis 04:46 PM Mid/Distal Left Anterior Descending Coronary Artery and diagonal branches with 65% stenosis. If graft is supplying this area, 0 % stenosis kmavis 04:46 PM Circumflex, Obtuse Marginal, Left Posterior Descending, and Left Posterolateral Coronary Arteries with 50 % stenosis. If graft is supplying this area, 0 % stenosis kmavis 04:46 PM Ramus with 0% stenosis. If graft is supplying this area, 0 % stenosis kmavis Complications Complication None None Hemodynamics Pressures Site Systolic/A Wave Diastolic/V Wave Mean AO 118 82 98 AO 122 87 103 LV 122 -6 5 LV 123 -7 5 AO 119 64 85 Post Procedure Information Blood Pressure: 140/79 mmHg Rhythm: NSR Post procedural instructions were given Closure Device Time Device Success/Fail 08/04/2018 4:47:00 PM MynxGrip Successful Site Checks Time Location Status Staff Sheath In? Note 04:40 PM Rt Groin No bleeding/hematoma Florence King RT (R) Pulses Updated by Vishnu Ordonez RN on 08/04/2018 4:54:00 PM electronically signed on 08/04/2018 4:55:59 PM with status of Final
[2018-08-05] MEDS: Nitroglycerin 1 INCH/GM PACKET TP SCH (05:10)
[2018-08-05] MEDS: *HR* Heparin 5,000 UNIT/ML VIAL SQ SCH (05:12)
[2018-08-05 06:54] VITALS: BP 163/65
[2018-08-05] MEDS: Insulin LISPRO 300 UNITS/3 ML VIAL SQ SCH (08:01)
--- NOTE | 2018-08-05 08:23 | Event Note ---
Date of Encounter: 08/05/18 Time of Encounter: 08:00 - Cardiology Event Note [facility] comploeted on 08/04/18--see results below. Recommend continued medical therapy; continue nitrates in the outpatient setting in addition to asa, statin, BB, and brilinta. Cardiology will sign-off, will coordinate outpatient follow-up with Dr. Mckeon. Discussed and reviewed with Dr. Luis who agrees with plan as above. 08/04/18 [facility] Moderate two vessel CAD Lesion Findings/Interventions * Left Main Coronary Artery The LMCA is angiographically free of disease. * Left Anterior Descending There is a 30-40% stenosis in the Mid LAD. There is a 65% stenosis in the 1st Diagonal with a patent stent. 1st diagonal is a small vessel. * Circumflex There is a 50-60% stenosis in the Mid Circumflex. Circumflex is a tortuous vessel. * Ramus The Ramus is angiographically free of significant disease and has patent stent. * Right Coronary Artery There is a 20% stenosis in the Right PDA. There is a 30% stenosis in the RPAV. 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
[2018-08-05] MEDS: *HR* Ticagrelor 90 MG TABLET PO SCH (08:55)
[2018-08-05] MEDS: Aspirin Enteric Coated 81 MG Tablet PO SCH (08:55)
[2018-08-05] MEDS ORDERED: Isosorbide MONOnitrate (24 HR) 60 MG TAB.ER.24H PO SCH (09:00)
--- NOTE | 2018-08-05 09:24 | Discharge Summary ---
- NOTES TO OUTPATIENT PROVIDER Notes to Outpatient Provider: Follow up with PCP 1 week. follow-up with the cardiology in one week. Please start taking Imdur 60mg PO Daily. Please continue taking ASA and Brilinta too Orders not resulted at time of discharge: Pending orders 08/02/18 09:15 NM ferny perf SPECT multi [NM] Routine Date of Encounter: 08/05/18 Time of Encounter: 09:22 - Discharge Diagnosis (1) Chest pain Priority: Primary Status: Suspected Qualifiers: Chest pain type: chest pain due to myocardial ischemia Ischemic chest pain type: unstable angina pectoris Qualified Code(s): I20.0 - Unstable angina (2) HTN (hypertension) Priority: Secondary Status: Chronic Qualifiers: Hypertension type: essential hypertension Qualified Code(s): I10 - Essenti al (primary) hypertension (3) DVT prophylaxis Priority: Secondary Status: Acute (4) Type II diabetes mellitus Priority: Secondary Status: Chronic Qualifiers: Diabetes mellitus senior living insulin use: without termite control technician use Diabetes mellitus complication status: without complication Qualified Code(s): E11.9 - Type 2 diabetes mellitus without complications (5) CAD (coronary artery disease) Priority: Secondary Status: Chronic Qualifiers: Coronary Disease-Associated Artery/Lesion type: [place] artery [place] vs. transplanted heart: [place] heart Associated angina: with unstable angina Qualified Code(s): I25.110 - Atherosclerotic heart disease of [place] coronary artery with unstable angina pectoris Hospital course: Ms. Thornton is a 58 year old female with PMHx significant of CAD s/p SD (SD, November 2017), DMII, HTN, morbid obesity, and recent left nephrectomy who presented to the ED after an episode of chest discomfort on Saturday evening. She described her CP as midsternal pressure/heaviness with radiation down left arm. Her pain lasts for 20 minutes and relived with SL NTG, asa, and IV morphine. Patient was admitted in the hospital and placed on security monitor. Her serial troponin X 3 negative. EKG did not show any acute ischemic changes. She had stopped nuclear stress test done which came back as small anterolateral infract with moderate myke infract ishcemia. Patient was seen by teradata developer who did left heart catheterization yesterday which showed moderate two vessel coronary artery disease. At this point cardiology recommended aggressive risk factor modification and optimal medical therapy. Patient was started on inmdur and adjusted her BP meds Coreg to 12.5mg BID also added low dose ACEI. Also encouraged the patient to continue taking dual antiplatelet therapy - Time Spent with Patient Total time spent providing and/or coordinating discharge services: - Discharge Medications Prescriptions: Carvedilol [Coreg] 12.5 mg PO BID 30 Days tablet Isosorbide MONOnitrate (24 HR) [Imdur] 60 mg PO DAILY #30 tab.er.24h Lisinopril [Zestril] 5 mg PO DAILY #30 tablet Home Medications: Aspirin Enteric Coated [Aspirin EC] 81 mg PO DAILY 30 Days #30 tablet.dr 12/07/17 [Rx] Atorvastatin [Lipitor] 80 mg PO HS 30 Days #30 tablet 12/07/17 [Rx] Nitroglycerin 0.4 mg SL Q5MIN PRN 30 Days #30 tab.subl 12/07/17 [Rx] Metformin HCl [Glucophage] 1,000 mg PO BID 04/28/18 [History] traZODone [TraZODone] 50 mg PO HS PRN 06/09/18 [History] Ticagrelor [Brilinta] 90 mg PO DAILY 06/26/18 [History] Docusate [Colace] 100 mg PO BID #60 capsule 06/28/18 [Rx] Carvedilol [Coreg] 12.5 mg PO BID 30 Days tablet 08/05/18 [Rx] Citalopram [CeleXA] 20 mg PO DAILY tablet 08/05/18 [Rx] Isosorbide MONOnitrate (24 HR) [Imdur] 60 mg PO DAILY #30 tab.er.24h 08/05/18 [Rx] Lisinopril [Zestril] 5 mg PO DAILY #30 tablet 08/05/18 [Rx] Allergies/Adverse Reactions: Allergy/AdvReac Type Severity Reaction Status Date / Time No Known Allergies Allergy Verified 08/01/18 21:14 Date of admission: 08/01/18 21:30 Primary care physician: PCP NONE Consults: 08/04/18 10:49 Consult to Cardiology [CONS] Routine Comment: Consulting Provider: [facility] [place] Reason for Consult: abnormal stress test Time Notified: 10:49 Call Completed: Yes - Constitutional Vitals: Temp Pulse Resp BP Pulse Ox 98.0 F 67 18 163/65 95 11/13/18 06:47 08/05/18 06:47 08/05/18 06:47 08/05/18 06:47 08/05/18 06:47 Exam: Gen: Alert, awake, Oriented to time,place and person Chest: Diminished breath sounds B/L, No wheezing, No crackles, No rales Heart: S1S2+ RRR No murmurs Abd: Soft, NT, BS +, No organomegaly Ext: No edema, pulses are palpable, No calf tenderness Neuro : Benign findings Skin: No rash. - Patient Status Disposition: Home, Self-Care Condition: Good Overall status at discharge: patient is back to baseline - Discharge Instructions Follow Up With: NONE,PCP [Primary Care Provider] - Ayse Mckeon [Partnered Physician] - - Diet and Activity Activity: increase activity as tolerated Diet: low salt diet
--- NOTE | 2018-08-05 19:51 | Electrocardiograph Report ---
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
--- NOTE | 2018-08-05 21:55 | Electrocardiograph Report ---
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
== END 2018-08-05 14:10 | disposition home or self-care (01) ==
LOC: EMEROOARM 18:16 → 3BNU 18:16 → SUATTDRO 21:30 → 3BNU 21:55
PROVIDERS: ADMIT Internal Medicine; ATTEND Family Medicine

== ENCOUNTER 2018-08-28 22:49 | Observation (INO) ==
[2018-08-28] MEDS ORDERED: *HR* FentaNYL (PF) 100 MCG/2 ML VIAL IVP ONE ×2 (22:57→23:58)
--- NOTE | 2018-08-28 23:01 | Emergency Department Note ---
Disposition Clinical Impression: Chest pain Qualifiers: Chest pain type: unspecified Qualified Code(s): R07.9 - Chest pain, unspecified Disposition: Admitted As Inpatient Condition: Good Referrals: Hannah Queen MD [Primary Care Provider] - Forms: ED Satisfaction Letter Time of Disposition: 00:01 Chest Pain HPI - General Chief Complaint: ED Chest Pain Stated Complaint: CP Time Seen by Provider: 08/28/18 22:56 Source: patient, EMS Mode of arrival: EMS Limitations: no limitations Vital Signs Reviewed: Yes Nursing Notes Reviewed: Yes - History of Present Illness HPI Narrative: Patient is a 58-year-old female with past medical history of hypertension, diabetes, previous CAD with stent placement 4 in November. She presents today due to concern for left-sided chest pain. States that it started about an hour prior to arrival, described as left-sided sharp pressure that radiates down her left arm. She was given aspirin 325, 4 nitroglycerin in route by EMS. She denies any improvement of her chest pain. Currently rates her pain an 8 out of 10. Admits to some mild shortness of breath. Denies any nausea, vomiting, diarrhea, abdominal pain, sweating, dysuria, hematuria. No lower extremity edema worsened from baseline. No calf pain. - Related Data Home Medications Medication Instructions Recorded Confirmed Metformin HCl [Glucophage] 1,000 mg PO BID 04/28/18 08/17/18 traZODone [TraZODone] 50 mg PO HS PRN 06/09/18 08/17/18 Ticagrelor [Brilinta] 90 mg PO DAILY 06/26/18 08/17/18 Previous Rx's Medication Instructions Recorded Aspirin Enteric Coated [Aspirin EC] 81 mg PO DAILY 30 Days #30 12/07/17 tablet. Atorvastatin [Lipitor] 80 mg PO HS 30 Days #30 tablet 12/07/17 Nitroglycerin 0.4 mg SL Q5MIN PRN 30 Days #30 12/07/17 tab.subl Docusate [Colace] 100 mg PO BID #60 capsule 06/28/18 Carvedilol [Coreg] 12.5 mg PO BID 30 Days tablet 08/05/18 Citalopram [CeleXA] 20 mg PO DAILY tablet 08/05/18 Isosorbide MONOnitrate (24 HR) 60 mg PO DAILY #30 tab.er.24h 08/05/18 [Imdur] Lisinopril [Zestril] 5 mg PO DAILY #30 tablet 08/05/18 Nitroglycerin [Nitrostat] 0.4 mg SL Q5M #20 tab.subl 08/18/18 Allergies Allergy/AdvReac Type Severity Reaction Status Date / Time No Known Allergies Allergy Verified 08/01/18 21:14 All systems ED: reviewed and negative except as stated. 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 No obvious rash.). Absent: rash - Respiratory Respiratory exam: Present: normal lung sounds bilaterally. Absent: respiratory distress, wheezes, stridor, accessory muscle use - Cardiovascular Cardiovascular exam: Present: regular rate, normal rhythm, normal heart sounds - Abdominal Exam Abdominal exam: Present: soft, Non-Tender. Absent: tenderness, distention, guarding, rebound, rigidity - Extremities Exam Extremities exam: Present: full ROM, pedal edema (mild bilateral LE). Absent: tenderness - Neurological Exam Neurological exam: Present: alert, oriented X3. Absent: motor sensory deficit - Psychiatric Psychiatric exam: Present: anxious - Skin Skin exam: Present: warm, dry, intact, normal color. Absent: rash Course Course Narrative: Patient was mildly hypertensive on presentation. Otherwise, the vitals were within normal limits. Physical exam showed reproducible left-sided chest wall discomfort and discomfort under the left breast. No obvious shingles rash. Abdomen soft and nontender. Lower extremities showed mild bilateral pitting edema. No calf pain. EKG performed and shows sinus rhythm with no acute ST changes. No STEMI criteria. Chest x-ray, basic blood work, troponin ordered. Patient was ordered fentanyl for pain control since nitroglycerin did not help with pain. 23:53 heart score 5. Troponin negative. EKG shows no acute STEMI criteria. Chest x-ray negative for any acute cardio pulmonary process. Patient reassessed and she is still having chest pain despite fentanyl. Discussed admitting to hospitalist for trending trops. She is agreeable with this plan. Chest X-Ray 08/28/18 22:57 IMPRESSION: Negative portable chest. D/ / Samson Jeong MD / Samson Jeong MD Interpreting Provider: Samson Jeong MD Vital Signs Temperature 98.4 F 08/28/18 22:52 Pulse Rate 90 08/28/18 22:52 Respiratory Rate 24 08/28/18 22:52 Blood Pressure 150/89 08/28/18 22:52 O2 Sat by Pulse Oximetry 98 08/28/18 22:52 Temperature 98.4 F 08/28/18 22:52 Pulse Rate 90 08/28/18 22:52 Respiratory Rate 24 08/28/18 22:52 Blood Pressure 150/89 08/28/18 22:52 O2 Sat by Pulse Oximetry 98 08/28/18 22:52 Oxygen Delivery Oxygen Delivery Room Air Chest Pain - MDM Narrative Medical decision making narrative: Patient was mildly hypertensive on presentation. Otherwise, the vitals were within normal limits. Physical exam showed reproducible left-sided chest wall discomfort and discomfort under the left breast. No obvious shingles rash. Abdomen soft and nontender. Lower extremities showed mild bilateral pitting edema. No calf pain. EKG performed and shows sinus rhythm with no acute ST changes. No STEMI criteria. Chest x-ray, basic blood work, troponin ordered. Patient was ordered fentanyl for pain control since nitroglycerin did not help with pain. 23:53 heart score 5. Troponin negative. EKG shows no acute STEMI criteria. Chest x-ray negative for any acute cardio pulmonary process. Patient reassessed and she is still having chest pain despite fentanyl. Discussed admitting to hospitalist for trending trops. She is agreeable with this plan. - Medical Records Medical records reviewed: Yes I reviewed the patient's medical records. - Lab Data Lab results reviewed: Yes I reviewed the patient's lab results. Result diagrams: 08/28/18 23:06 08/28/18 23:06 Lab Results 08/28/18 08/28/18 08/28/18 Range/Units 23:06 23:06 23:06 WBC 9.5 (4.3-11.1) K/mcL RBC 3.44 L (3.82-4.97) M/mcL Hgb 10.0 L (11.5-15.4) g/dL Hct 31.0 L (35.3-44.9) % MCV 90.1 (83.0-100.0) fL MCH 29.1 (28.0-33.3) pg MCHC 32.3 (31.6-35.5) g/dL RDW 14.0 (11.5-14.5) % Plt Count 240 (140-400) K/mcL MPV 11.4 (9.4-12.4) fL Immature Gran % 0.2 (0-4) % Seg Neutrophils % 70.0 % Lymphocytes % 16.9 % Monocytes % 8.6 % Eosinophils % 3.7 % Basophils % 0.6 % Neutrophils # 6.6 (1.6-8.9) K/mcL Lymphocytes # 1.6 (0.6-4.6) K/mcL Monocytes # 0.8 (0.0-1.3) K/mcL Eosinophils # 0.4 (0.0-0.6) K/mcL Basophils # 0.1 (0.0-0.2) K/mcL PT 11.8 (9.4-12.1) Seconds INR 1.0 APTT 31.4 (26.0-36.0) Seconds Sodium 138 (136-145) mEq/L Potassium 3.9 (3.5-5.1) mEq/L Chloride 106 (98-107) mEq/L Carbon Dioxide 23 (23-29) mEq/L BUN 18 (6-20) mg/dL Creatinine 1.15 (0.60-1.20) mg/dL Est GFR ( Amer) 59 L (> 60) Est GFR (Non-Af Amer) 48 L (> 60) BUN/Creatinine Ratio 16 (6-26) Glucose 181 H (70-105) mg/dL Calculated Osmolality 292 (280-300) Calcium 8.9 (8.6-10.3) mg/dL Troponin I < 0.03 (< 0.04) ng/mL - Radiology Data Radiology results reviewed: Yes I reviewed the patient's radiology results. Chest X-Ray 08/28/18 22:57 IMPRESSION: Negative portable chest. D/ / Samson Jeong MD / Samson Jeong MD Interpreting Provider: Samson Jeong MD - EKG Data EKG attestation: Yes I reviewed and interpreted this EKG. EKG results narrative: 08/28/2018 at 22:57. Sinus rhythm. Rate 80. WA 195. QRS 91. QTC 4-41. Left axis deviation. No acute ST elevation or depression. Heart Score - Score History: Moderately Suspicious EKG: Non Specific repolarisation Disturbance Age: 45-65 Risk Factors: Equal/Greater than 3 risk factor or history of atherosclerotic disease Troponin: Less than normal limit HEART Score Total: 5 S.B.A.R. - S.B.A.R. Situation: Demographics, MOA Background: Presenting Complaint, Relevant PMH, Meds, & Allergies Assessment: Vital Signs, Course and respsone to treatment, Exam Concerns, Patient/Family Expectation, Pertinant Lab Results Recommendation: Barrier(s) to disposition, Recommendation based on pending studies, treatments, or consults S.B.A.R. Report Given to: Dr. Valencia StaffordB.AEmiliano Repor Time: 00:01
[2018-08-28 23:18] LABS: Basophils # 0.1 K/mcL (0.0-0.2); Basophils % 0.6 %; Eosinophils # 0.4 K/mcL (0.0-0.6); Eosinophils % 3.7 %; Immature Granulocytes % 0.2 % (0-4); Lymphocytes # 1.6 K/mcL (0.6-4.6); Lymphocytes % 16.9 %; Mean Corpuscular HGB Conc 32.3 g/dL (31.6-35.5); Mean Corpuscular Hemoglobin 29.1 pg (28.0-33.3); Mean Corpuscular Volume 90.1 fL (83.0-100.0); Mean Platelet Volume 11.4 fL (9.4-12.4); Monocytes # 0.8 K/mcL (0.0-1.3); Monocytes % 8.6 %; Neutrophils # 6.6 K/mcL (1.6-8.9); Platelet Count 240 K/mcL (140-400); Red Blood Count 3.44 M/mcL (3.82-4.97)
[2018-08-28 23:25] LABS: Prothrombin Time 11.8 Seconds (9.4-12.1)
[2018-08-28 23:28] LABS: Activated Partial Thrombo Time 31.4 Seconds (26.0-36.0)
[2018-08-28 23:40] LABS: BUN/Creatinine Ratio 16 (6-26); Blood Urea Nitrogen 18 mg/dL (6-20); Calcium 8.9 mg/dL (8.6-10.3); Carbon Dioxide 23 mEq/L (23-29); Chloride 106 mEq/L (98-107); Glucose 181 mg/dL (70-105); Osmolality,Calculated 292 (280-300); Potassium 3.9 mEq/L (3.5-5.1); Sodium 138 mEq/L (136-145); Troponin I < 0.03 ng/mL (< 0.04); eGFR For Non-African Americans 48 (> 60)
--- NOTE | 2018-08-28 23:55 | Emergency Department Note ---
Disposition Clinical Impression: Chest pain Qualifiers: Chest pain type: unspecified Qualified Code(s): R07.9 - Chest pain, unspecified Disposition: Admitted As Inpatient Condition: Good Referrals: Hannah Queen MD [Primary Care Provider] - Forms: ED Satisfaction Letter General Adult HPI - General Chief complaint: ED Chest Pain Stated complaint: CP Time Seen by Provider: 08/28/18 22:56 Source: patient, EMS Mode of arrival: EMS Limitations: no limitations Nursing Notes Reviewed: Yes Vital Signs Reviewed: Yes - History of Present Illness Pain Scale: 10 - Related Data Home Medications Medication Instructions Recorded Confirmed Metformin HCl [Glucophage] 1,000 mg PO BID 04/28/18 08/29/18 traZODone [TraZODone] 50 mg PO HS PRN 06/09/18 08/29/18 Ticagrelor [Brilinta] 90 mg PO DAILY 06/26/18 08/29/18 Previous Rx's Medication Instructions Recorded Aspirin Enteric Coated [Aspirin EC] 81 mg PO DAILY 30 Days #30 12/07/17 tablet. Atorvastatin [Lipitor] 80 mg PO HS 30 Days #30 tablet 12/07/17 Nitroglycerin 0.4 mg SL Q5MIN PRN 30 Days #30 12/07/17 tab.subl Docusate [Colace] 100 mg PO BID #60 capsule 06/28/18 Carvedilol [Coreg] 12.5 mg PO BID 30 Days tablet 08/05/18 Citalopram [CeleXA] 20 mg PO DAILY tablet 08/05/18 Isosorbide MONOnitrate (24 HR) 60 mg PO DAILY #30 tab.er.24h 08/05/18 [Imdur] Lisinopril [Zestril] 5 mg PO DAILY #30 tablet 08/05/18 Nitroglycerin [Nitrostat] 0.4 mg SL Q5M #20 tab.subl 08/18/18 Allergies Allergy/AdvReac Type Severity Reaction Status Date / Time No Known Allergies Allergy Verified 08/01/18 21:14 Constitutional: Denies: fever Cardiovascular: Reports: chest pain Respiratory: Reports: dyspnea Gastrointestinal: Denies: abdominal pain, nausea, vomiting, diarrhea Genitourinary: Denies: urgency, dysuria Integumentary: Denies: rash Neurological: Denies: headache, weakness, numbness, paresthesias Past Medical History - Past Medical History Medical history: Reports: coronary artery disease, diabetes, hyperlipidemia, hypertension, myocardial infarction, renal disease Surgical history: Reports: hysterectomy, other Psychiatric history: Reports: no psych history, anxiety 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 - Social History Smoking Status: Never smoker Smokeless Tobacco Status: No Alcohol use: Reports: none Drug use: Reports: none Physical Exam - General Limitations: no limitations General appearance: anxious Course Vital Signs Temperature 98.4 F 08/28/18 22:52 Pulse Rate 90 08/28/18 22:52 Respiratory Rate 24 08/28/18 22:52 Blood Pressure 150/89 08/28/18 22:52 O2 Sat by Pulse Oximetry 98 08/28/18 22:52 Temperature 98.4 F 08/28/18 22:52 Pulse Rate 69 08/29/18 00:05 Respiratory Rate 17 08/29/18 00:05 Blood Pressure 150/76 08/29/18 00:05 O2 Sat by Pulse Oximetry 96 08/29/18 00:05 Oxygen Delivery Oxygen Delivery Room Air Medical Decision Making - Medical Records Medical records reviewed: Yes I reviewed the patient's medical records. - Lab Data Lab results reviewed: Yes I reviewed the patient's lab results. Result diagrams: 08/28/18 23:06 08/28/18 23:06 Lab Results 08/28/18 08/28/18 08/28/18 Range/Units 23:06 23:06 23:06 WBC 9.5 (4.3-11.1) K/mcL RBC 3.44 L (3.82-4.97) M/mcL Hgb 10.0 L (11.5-15.4) g/dL Hct 31.0 L (35.3-44.9) % MCV 90.1 (83.0-100.0) fL MCH 29.1 (28.0-33.3) pg MCHC 32.3 (31.6-35.5) g/dL RDW 14.0 (11.5-14.5) % Plt Count 240 (140-400) K/mcL MPV 11.4 (9.4-12.4) fL Immature Gran % 0.2 (0-4) % Seg Neutrophils % 70.0 % Lymphocytes % 16.9 % Monocytes % 8.6 % Eosinophils % 3.7 % Basophils % 0.6 % Neutrophils # 6.6 (1.6-8.9) K/mcL Lymphocytes # 1.6 (0.6-4.6) K/mcL Monocytes # 0.8 (0.0-1.3) K/mcL Eosinophils # 0.4 (0.0-0.6) K/mcL Basophils # 0.1 (0.0-0.2) K/mcL PT 11.8 (9.4-12.1) Seconds INR 1.0 APTT 31.4 (26.0-36.0) Seconds Sodium 138 (136-145) mEq/L Potassium 3.9 (3.5-5.1) mEq/L Chloride 106 (98-107) mEq/L Carbon Dioxide 23 (23-29) mEq/L BUN 18 (6-20) mg/dL Creatinine 1.15 (0.60-1.20) mg/dL Est GFR ( Amer) 59 L (> 60) Est GFR (Non-Af Amer) 48 L (> 60) BUN/Creatinine Ratio 16 (6-26) Glucose 181 H (70-105) mg/dL Calculated Osmolality 292 (280-300) Calcium 8.9 (8.6-10.3) mg/dL Troponin I < 0.03 (< 0.04) ng/mL - Radiology Data Radiology results reviewed: Yes I reviewed the patient's radiology results. Chest X-Ray 08/28/18 22:57 IMPRESSION: Negative portable chest. D/ / Samson Jeong MD / Samson Jeong MD Interpreting Provider: Samson Jeong MD - EKG Data EKG #1 EKG attestation: Yes I reviewed and interpreted this EKG. EKG results narrative: EKG shows a normal sinus rhythm with ventricular rate of 80. Left axis deviation. No acute ST segment elevation or depression. No arrhythmia or ectopy. Attestation Statement - Attestation Attestation: I, Homero Álvarez MD, personally evaluated this patient and discussed their management with the resident physician. I reviewed the resident's note and agree with the documented findings, medical decision making, and plan of care. 58-year-old female with history of coronary artery disease and multiple coronary artery stents presents to the emergency department with a complaint of severe sharp stabbing cutting left-sided chest pain which started about one hour prior to arrival. The pain radiates down the left arm to the elbow. Patient took nitroglycerin and aspirin at home with no relief. She received an additional nitroglycerin per EMS with no relief. On arrival here patient is crying with pain. On examination patient is a well-developed obese female in no acute distress. She is alert and oriented 3. There is no cyanosis or diaphoresis. There is tenderness palpation over the left anterior chest wall. Breath sounds are clear and equal bilaterally. Heart regular rate and rhythm. Abdomen soft and nontender with present bowel sounds. Trace pedal edema. Labs reviewed. Troponin normal. Chest x-ray negative. No acute changes on EKG. The hospitalist, Dr. [place], was consulted and accepted admission of the patient.
[2018-08-29] MEDS ORDERED: *HR* Morphine 2 MG/ML SYRINGE IVP ONE
[2018-08-29] MEDS ORDERED: Ondansetron 4 MG/2 ML VIAL IVP ONE (00:09)
[2018-08-29] MEDS ORDERED: Ondansetron 4 MG/2 ML VIAL ONE (00:10)
[2018-08-29] MEDS ORDERED: *HR* Dextrose 50 % in Water (Syg) 50 ML SYRINGE IVP PRN (04:24)
[2018-08-29] MEDS ORDERED: Acetaminophen 325 MG TABLET PO PRN (04:24)
[2018-08-29] MEDS ORDERED: Dextrose Gel 15 GM/37.5 ML TUBE PO PRN ×2 (04:24)
[2018-08-29] MEDS ORDERED: Naloxone 0.4 MG/ML INJ IVP PRN (04:24)
[2018-08-29] MEDS ORDERED: D5% in Water 1,000 ML IVC PRN (04:24)
[2018-08-29] MEDS ORDERED: traZODone 50 MG TABLET PO PRN (04:28)
[2018-08-29] MEDS ORDERED: 0.9 % Sodium Chloride 1,000 ML IVC SCH (04:30)
--- NOTE | 2018-08-29 04:34 | Internal Med History&Physical ---
Date of Encounter: 08/29/18 Time of Encounter: 03:30 Internal Medicine - H&P: HPI Chief complaint: chest pain Admitted From: Emergency Dept Plans for Post Hospital Care: Home History of present illness: Ms. Thornton is a 58 year old female who presents with complaints of substernal chest pain and pressure which started last night while resting in her chair at home. Pain was similar to prior episodes of angina. She therefore came to ER for evaluation. Workup in ER was negative, but given her history of coronary disease, she was admitted to hospitalist service for further workup and care. She did receive opiates with chest pain relief in the ER. Patient did take nitroglycerin at home with little relief. Upon my assessment of the patient, she is sleeping comfortably and easily arousable. She is currently chest pain-free. She denies any fevers, cough, congestion, shortness of breath, vomiting, or diarrhea. Of note, patient just had a recent left heart catheterization last month which revealed nonobstructive coronary disease. However, she does have stents in place from prior heart catheterization in November of this year. She denies missing any of her antiplatelet therapy. Past Med Surg Social Fam HX - Past Medical History Attestation: Yes The following information was validated with the patient. Source: patient, old records reviewed Medical history: coronary artery disease, diabetes, hyperlipidemia, hypertension, myocardial infarction, renal disease Additional medical history: NSTEMI with STENTS November 2017, Psychiatric history: no psych history, anxiety - Past Surgical History Surgical History: hysterectomy, other Additional surgical history: kidney removed 2017 - Social History Smoking Status: Never smoker Smokeless Tobacco Status: No Alcohol use: none Drug use: none Current living situation: Home Activity Level: Independent ambulation Recent Out of Country Travel Within the Last 8 Weeks: No - Family History Father Family Member Ethnicity: Non- Living Status: Hx Family Cardiac Disorders: Yes (DE, HTN, HLD) Mother Family Member Ethnicity: Non- Living Status: Hx Family Cardiac Disorders: Yes (CHF) Hx Family Endocrine Disorder: Yes (Hypoglycemia) Brother Adopted: Yes Family Member Ethnicity: Non- Living Status: Still Living Sister Family Member Ethnicity: Non- Living Status: Hx Family Cardiac Disorders: Yes (CABG, HD) Hx Family Endocrine Disorder: Yes (DM) Internal Medicine - H&P: Meds Aspirin Enteric Coated [Aspirin EC] 81 mg PO DAILY 30 Days #30 tablet.dr 12/07/17 [Rx] Atorvastatin [Lipitor] 80 mg PO HS 30 Days #30 tablet 12/07/17 [Rx] Nitroglycerin 0.4 mg SL Q5MIN PRN 30 Days #30 tab.subl 12/07/17 [Rx] Metformin HCl [Glucophage] 1,000 mg PO BID 04/28/18 [History] traZODone [TraZODone] 50 mg PO HS PRN 06/09/18 [History] Ticagrelor [Brilinta] 90 mg PO DAILY 06/26/18 [History] Docusate [Colace] 100 mg PO BID #60 capsule 06/28/18 [Rx] Carvedilol [Coreg] 12.5 mg PO BID 30 Days tablet 08/05/18 [Rx] Citalopram [CeleXA] 20 mg PO DAILY tablet 08/05/18 [Rx] Isosorbide MONOnitrate (24 HR) [Imdur] 60 mg PO DAILY #30 tab.er.24h 08/05/18 [Rx] Lisinopril [Zestril] 5 mg PO DAILY #30 tablet 08/05/18 [Rx] Nitroglycerin [Nitrostat] 0.4 mg SL Q5M #20 tab.subl 08/18/18 [Rx] Allergy/AdvReac Type Severity Reaction Status Date / Time No Known Allergies Allergy Verified 08/01/18 21:14 - Constitutional Constitutional: no chills, no fever(s), no night sweats - EENT Eyes: no change in vision Nose, mouth and throat: no nasal congestion, no sinus pressure, no sore throat - Cardiovascular Cardiovascular ROS IM: chest pain, diaphoresis, dyspnea, no lightheadedness, no syncope - Respiratory Respiratory: no cough, no hemoptysis, no chest congestion, no excessive phlegm production, no change in phlegm color, no pain with cough - Gastrointestinal Gastrointestinal: no abdominal pain, no diarrhea, no hematemesis, no hematochezia, no melena, no vomiting - Genitourinary Genitourinary: no dysuria, no flank pain, no hematuria - Musculoskeletal Musculoskeletal ROS IM: no arthralgias, no back pain - Integumentary Integumentary IM: no rash, no jaundice - Neurological Neurological ROS: no dizziness, no focal weakness, no frequent falls, no hea dache(s) - Psychiatric Psychiatric: no anxiety, no depression - Endocrine Endocrine IM: no polydipsia, no polyphagia, no polyuria - Allergic/Immunologic Allergic/Immunologic: no GI upset with certain foods - Constitutional Vitals: Temp Pulse Resp BP Pulse Ox 97.9 F 63 16 144/82 100 08/29/18 03:28 08/29/18 03:28 08/29/18 03:28 08/29/18 03:28 08/29/18 03:28 General appearance: Present: cooperative, A&O X 3, pleasant, no acute distress, answers questions appropriately Exam: see below - Head Head exam: Present: atraumatic, normal inspection - Eye Eye exam: Present: EOMI, PERRL. Absent: scleral icterus Pupils: Present: normal accommodation - ENT ENT exam: Present: mucous membranes dry, normal exam, normal oropharynx - Neck Neck exam general surgery: Present: full ROM, supple. Absent: tenderness, nuchal rigidity, thyromegaly - Respiratory Respiratory exam: Present: decreased breath sounds. Absent: chest wall tenderness, rales, rhonchi, wheezes - Cardiovascular Cardiovascular exam: Present: distant heart sounds, RRR, +S1, +S2. Absent: diastolic murmur, JVD, systolic murmur - GI/Abdominal GI/Abdominal exam: Present: normal bowel sounds, soft. Absent: hepatomegaly, mass, splenomegaly, tenderness - Extremities Exam Extremities exam: Present: normal capillary refill, warm, radial pulses palpable and symmetrical. Absent: calf tenderness, pedal edema, tenderness - Back Exam Back exam: Absent: CVA tenderness (L), CVA tenderness (R) - Neurological Exam Neurological exam: Present: alert, CN II-XII intact, oriented X3, no focal defic its - Psychiatric Psychiatric exam: Present: normal affect, normal mood - Skin Skin exam: Present: dry, intact, warm Internal Med - H&P Results - Labs CBC & Chem 7: 08/28/18 23:06 08/28/18 23:06 Labs: Short CBC 08/28/18 Range/Units 23:06 WBC 9.5 (4.3-11.1) K/mcL Hgb 10.0 L (11.5-15.4) g/dL Hct 31.0 L (35.3-44.9) % Plt Count 240 (140-400) K/mcL Neutrophils # 6.6 (1.6-8.9) K/mcL BMP 08/28/18 23:06 Sodium 138 Potassium 3.9 Chloride 106 Carbon Dioxide 23 BUN 18 Creatinine 1.15 Glucose 181 H Calcium 8.9 Cardiac Enzymes 08/28/18 Range/Units 23:06 Troponin I < 0.03 (< 0.04) ng/mL - EKG Data -: EKG Interpreted by Myself - EKG Data Prior EKG available for review: yes When compared to previous EKG: there is no significant change EKG comments: 08/29/18 04:37 NSR; LAD; no acute ST-T changes - Impressions ITS Impressions Chest X-Ray 08/28/18 22:57 IMPRESSION: Negative portable chest. D/ / Samson Jeong MD / aSmson Jeong MD Interpreting Provider: Samson Jeong MD - Diagnostic Studies Chest x-ray Status: image reviewed by me (negative) - Assessment and plan (1) Chest pain Current Visit: Yes Status: Acute Assessment and plan: 1. Will cycle troponins, EKG's, and consult cardiology. 2. Recent LHC revealed non-obstructive CAD; patient had PCI/Stents in November,. 3. Continue Imdur, PRN SL NTG, and Morphine PRN chest pain. Qualifiers: Chest pain type: chest pain due to myocardial ischemia Ischemic chest pain type: stable angina pectoris Qualified Code(s): I20.8 - Other forms of angina pectoris (2) CAD (coronary artery disease) Current Visit: Yes Status: Chronic Assessment and plan: 1. Continue home meds as appropriate. 2. Work-up as above. 3. Cardiology consultation --> invasive work-up/treatment vs medical management. Qualifiers: Coronary Disease-Associated Artery/Lesion type: [place] artery [place] vs. transplanted heart: [place] heart Associated angina: with unstable angina Qualified Code(s): I25.110 - Atherosclerotic heart disease of [place] coronary artery with unstable angina pectoris (3) Type II diabetes mellitus Current Visit: Yes Status: Chronic Assessment and plan: 1. Will order SSI and adjust insulin dosing as necessary. 2. Hold oral home meds. Qualifiers: Diabetes mellitus superintendent terminal insulin use: without retirement use Diabetes mellitus complication status: without complication Qualified Code(s): E11.9 - Type 2 diabetes mellitus without complications (4) DVT prophylaxis Current Visit: Yes Status: Acute Assessment and plan: 1. Heparin SQ.
[2018-08-29] MEDS ORDERED: *HR* Morphine 2 MG/ML SYRINGE IVP PRN (04:40)
[2018-08-29 05:08] LABS: INR 1.1; Prothrombin Time 12.5 Seconds (9.4-12.1)
[2018-08-29 05:11] LABS: Activated Partial Thrombo Time 31.9 Seconds (26.0-36.0)
[2018-08-29 05:26] LABS: Calcium 8.6 mg/dL (8.6-10.3); Potassium 4.1 mEq/L (3.5-5.1)
[2018-08-29 05:27] LABS: Chol/HDL Ratio 3.5 (0-4.9); Magnesium 1.8 mg/dL (1.6-2.6)
[2018-08-29] MEDS: Insulin LISPRO 300 UNITS/3 ML VIAL SQ SCH ×2 (05:33→13:10)
[2018-08-29] MEDS ORDERED: *HR* Heparin 5,000 UNIT/ML VIAL SQ SCH (06:00)
[2018-08-29] MEDS: Nitroglycerin 0.4 MG TAB.SUBL SL PRN ×2 (08:54→09:02)
[2018-08-29] MEDS ORDERED: Isosorbide MONOnitrate (24 HR) 60 MG TAB.ER.24H PO SCH (09:00)
[2018-08-29] MEDS ORDERED: Isosorbide MONOnitrate (24 HR) 30 MG TAB.ER.24H PO SCH (09:00)
[2018-08-29] MEDS ORDERED: *HR* Ticagrelor 90 MG TABLET PO SCH (09:00)
[2018-08-29] MEDS ORDERED: Aspirin Enteric Coated 81 MG Tablet PO SCH (09:00)
[2018-08-29] MEDS ORDERED: *HR* HYDROcodone/Acet 5/325 mg TABLET PO ONE (10:01)
[2018-08-29 10:50] VITALS: BP 139/73
--- NOTE | 2018-08-29 11:51 | Discharge Summary ---
- NOTES TO OUTPATIENT PROVIDER Notes to Outpatient Provider: Presented with chest pain seen by cardiology recommending increase of Imdur-Imdur increased to 90 mg daily follow-up with cardiology as outpatient Orders not resulted at time of discharge: Pending orders 08/29/18 16:45 Troponin I Q6H Date of Encounter: 08/29/18 Time of Encounter: 11:48 - Discharge Diagnosis (1) Chest pain Priority: Primary Status: Acute Qualifiers: Chest pain type: chest pain due to myocardial ischemia Ischemic chest pain type: stable angina pectoris Qualified Code(s): I20.8 - Other forms of angina pectoris (2) DVT prophylaxis Priority: Secondary Status: Acute (3) Type II diabetes mellitus Priority: Secondary Status: Chronic Qualifiers: Diabetes mellitus [facility] insulin use: without superintendent container terminal use Diabetes mellitus complication status: without complication Qualified Code(s): E11.9 - Type 2 diabetes mellitus without complications (4) CAD (coronary artery disease) Priority: Secondary Status: Chronic Qualifiers: Coronary Disease-Associated Artery/Lesion type: [place] artery [place] vs. transplanted heart: [place] heart Associated angina: with unstable angina Qualified Code(s): I25.110 - Atherosclerotic heart disease of [place] coronary artery with unstable angina pectoris Hospital course: Ms. Thornton is a 58 year old female past medical history coronary artery disease with PCI November 2017 with stent placement hyperlipidemia hypertension diabetes CK D. Presented to [facility] ED with complaints of substernal chest pain occurring at rest she did take some nitroglycerin which did ease the pain she was given opiates in the ER which did relieve her pain. Troponins were negative [address]-T wave abnormalities. Patient did have a left heart catheter last month which revealed nonobstructive coronary artery disease. She was seen by cardiology who recommends increasing Imdur. Also patient was given pain medication which did relieve her pain. Patient voices the pains mostly occurs with movement of her upper extremities. Advised patient to follow-up with PCP as well as cardiology. Patient was given a prescription of Imdur 90 mg. She is currently hemodynamically stable at this time and is ready for discharge Discharge discussed with: patient - Time Spent with Patient Total time spent providing and/or coordinating discharge services: - Discharge Medications Prescriptions: Isosorbide MONOnitrate (24 HR) [Imdur] 90 mg PO DAILY #60 tab.er.24h Home Medications: Aspirin Enteric Coated [Aspirin EC] 81 mg PO DAILY 30 Days #30 tablet.dr 12/07/17 [Rx] Atorvastatin [Lipitor] 80 mg PO HS 30 Days #30 tablet 12/07/17 [Rx] Nitroglycerin 0.4 mg SL Q5MIN PRN 30 Days #30 tab.subl 12/07/17 [Rx] Metformin HCl [Glucophage] 1,000 mg PO BID 04/28/18 [History] traZODone [TraZODone] 50 mg PO HS PRN 06/09/18 [History] Ticagrelor [Brilinta] 90 mg PO DAILY 06/26/18 [History] Docusate [Colace] 100 mg PO BID #60 capsule 06/28/18 [Rx] Carvedilol [Coreg] 12.5 mg PO BID 30 Days tablet 08/05/18 [Rx] Citalopram [CeleXA] 20 mg PO DAILY tablet 08/05/18 [Rx] Lisinopril [Zestril] 5 mg PO DAILY #30 tablet 08/05/18 [Rx] Nitroglycerin [Nitrostat] 0.4 mg SL Q5M #20 tab.subl 08/18/18 [Rx] Isosorbide MONOnitrate (24 HR) [Imdur] 90 mg PO DAILY #60 tab.er.24h 08/29/18 [Rx] Allergies/Adverse Reactions: Allergy/AdvReac Type Severity Reaction Status Date / Time No Known Allergies Allergy Verified 08/01/18 21:14 Date of admission: 08/29/18 00:08 Primary care physician: Hannah Queen Consults: 08/29/18 04:27 Consult to Physician [CONS] Routine Consulting Provider: Sonia Abraham Reason for Consult: chest pain; s/p [facility] Call Completed: No Discharging clinician: Nicole Murphy Anticipated date of discharge: 08/29/18 - Constitutional Vitals: Temp Pulse Resp BP Pulse Ox 98.2 F 65 18 139/73 98 08/29/18 10:49 08/29/18 10:49 08/29/18 10:49 08/29/18 10:49 08/29/18 10:49 General appearance: Present: cooperative, A&O X 3, pleasant, no acute distress, answers questions appropriately Exam: GENERAL: Pleasant cooperative alert and oriented 3 HEENT: Head is normocephalic and atraumatic. Extraocular muscles are intact. Pupils are equal, round, and reactive to light and accommodation. NECK: Supple. No carotid bruits. No lymphadenopathy or thyromegaly. LUNGS: CTA, symmetrical expansion. Respirations easy and unlabored HEART: Regular rate and rhythm, S1, S2 without murmur. ABDOMEN: Soft, nontender, and nondistended. Positive bowel sounds. No hepatosplenomegaly was noted. EXTREMITIES: Without any cyanosis, clubbing, rash, lesions or edema. NEUROLOGIC: Cranial nerves II through XII are grossly intact. PSYCHIATRIC: Appropriate affect, denies SI/HI, without agitation or anxiety SKIN: No ulceration or induration present. - Patient Status Disposition: Home, Self-Care Condition: Good Functional capacity at discharge: independent ambulation Overall status at discharge: patient is back to baseline - Discharge Instructions Instructions: Chest Pain (DC), Diabetes Mellitus Type 2 in Adults (DC) Follow Up With: Hannah Queen MD [Primary Care Provider] - (Appointment has been requested.Our offices will call with an appointment time and date.) - Diet and Activity Activity: increase activity as tolerated Diet: advance to your usual diet
--- NOTE | 2018-08-29 14:30 | Electrocardiograph Report ---
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
--- NOTE | 2018-08-29 14:37 | Electrocardiograph Report ---
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
== END 2018-08-29 14:21 | disposition home or self-care (01) ==
LOC: EMEROOARM 22:49 → 3BNU 22:49
PROVIDERS: ADMIT Internal Medicine; ATTEND Internal Medicine

== ENCOUNTER 2018-09-25 15:34 | Inpatient (IN) ==
[2018-09-25] MEDS ORDERED: Nitroglycerin 0.4 MG TAB.SUBL SL ONE (16:19)
[2018-09-25] MEDS ORDERED: *HR* FentaNYL (PF) 100 MCG/2 ML VIAL IVP STA (16:21)
[2018-09-25] MEDS ORDERED: Nitroglycerin 0.2 MG PATCH.TD24 TD STA (16:21)
[2018-09-25 16:42] LABS: Basophils # 0.1 K/mcL (0.0-0.2); Basophils % 0.6 %; Eosinophils # 0.6 K/mcL (0.0-0.6); Eosinophils % 6.4 %; Hematocrit 31.9 % (35.3-44.9); Hemoglobin 10.2 g/dL (11.5-15.4); Immature Granulocytes % 0.2 % (0-4); Lymphocytes # 1.7 K/mcL (0.6-4.6); Lymphocytes % 18.6 %; Mean Corpuscular Hemoglobin 28.4 pg (28.0-33.3); Mean Corpuscular Volume 88.9 fL (83.0-100.0); Mean Platelet Volume 11.1 fL (9.4-12.4); Monocytes # 0.8 K/mcL (0.0-1.3); Monocytes % 8.8 %; Neutrophils # 5.9 K/mcL (1.6-8.9); Platelet Count 247 K/mcL (140-400); Red Blood Count 3.59 M/mcL (3.82-4.97); Red Cell Distribution Width 14.1 % (11.5-14.5); Segmented Neutrophils % 65.4 %
[2018-09-25 16:50] LABS: INR 1.1; Prothrombin Time 12.6 Seconds (9.4-12.1)
[2018-09-25 16:52] LABS: Activated Partial Thrombo Time 31.6 Seconds (26.0-36.0)
[2018-09-25 17:03] LABS: Troponin I < 0.03 ng/mL (< 0.04)
[2018-09-25 17:04] LABS: BUN/Creatinine Ratio 25 (6-26); Blood Urea Nitrogen 24 mg/dL (6-20); Calcium 9.4 mg/dL (8.6-10.3); Carbon Dioxide 24 mEq/L (23-29); Chloride 107 mEq/L (98-107); Glucose 104 mg/dL (70-105); Magnesium 1.7 mg/dL (1.6-2.6); Osmolality,Calculated 292 (280-300); Sodium 139 mEq/L (136-145); eGFR For Non-African Americans 60 (> 60)
[2018-09-25 17:17] LABS: Thyroid Stimulating Hormone 2.633 mcIU/mL (0.340-5.600)
--- NOTE | 2018-09-25 18:49 | Emergency Department Note ---
Disposition Clinical Impression: History of heart artery stent Coronary artery disease Qualifiers: Coronary Disease-Associated Artery/Lesion type: [place] artery [place] vs. transplanted heart: [place] heart Associated angina: with unstable angina Qualified Code(s): I25.110 - Atherosclerotic heart disease of [place] coronary artery with unstable angina pectoris Diabetes mellitus Qualifiers: Diabetes mellitus type: type 2 Diabetes mellitus penitentiary insulin use: without penitentiary use Diabetes mellitus complication status: with unspecified complications Qualified Code(s): E11.8 - Type 2 diabetes mellitus with unspecified complications Hypertension Qualifiers: Hypertension type: essential hypertension Qualified Code(s): I10 - Essential (primary) hypertension Disposition: Admitted As Inpatient Condition: Good General Adult HPI - General Chief complaint: ED Chest Pain Stated complaint: CP Time Seen by Provider: 09/25/18 16:11 Source: patient, EMS Limitations: no limitations Nursing Notes Reviewed: Yes Vital Signs Reviewed: Yes - History of Present Illness HPI Narrative: 58-year-old female with history of cardiac stents sent from Dr. Mckeon's office presenting with complaints of chest pain. She states the pain is sharp and continues to worsen over the last 2 hours. She states the pain is very similar to her previous episode of heart attack. The pain is in the center of her left chest and radiates into her left arm. She otherwise feels slightly short of breath. Otherwise denies any fever, chills, nausea, vomiting, diarrhea, dysuria, hematuria, hematochezia or melena. Pain Scale: 6 - Related Data Home Medications Medication Instructions Recorded Confirmed Metformin HCl [Glucophage] 1,000 mg PO BID 04/28/18 09/25/18 traZODone [TraZODone] 50 mg PO HS PRN 06/09/18 09/25/18 Ticagrelor [Brilinta] 90 mg PO DAILY 06/26/18 09/25/18 Previous Rx's Medication Instructions Recorded Aspirin Enteric Coated [Aspirin EC] 81 mg PO DAILY 30 Days #30 12/07/17 tablet. Atorvastatin [Lipitor] 80 mg PO HS 30 Days #30 tablet 12/07/17 Nitroglycerin 0.4 mg SL Q5MIN PRN 30 Days #30 12/07/17 tab.subl Docusate [Colace] 100 mg PO BID #60 capsule 06/28/18 Citalopram [CeleXA] 20 mg PO DAILY tablet 08/05/18 Lisinopril [Zestril] 5 mg PO DAILY #30 tablet 08/05/18 Isosorbide MONOnitrate (24 HR) 90 mg PO DAILY #60 tab.er.24h 08/29/18 [Imdur] Cyclobenzaprine [Flexeril] 10 mg PO TID PRN #21 tablet 09/07/18 Allergies Allergy/AdvReac Type Severity Reaction Status Date / Time No Known Allergies Allergy Verified 08/01/18 21:14 Constitutional: Denies: fever, chills, weakness, weight change Eyes: Denies: eye pain, eye discharge, vision change Cardiovascular: Reports: chest pain. Denies: palpitations, dyspnea on exertion, orthopnea, edema, syncope Respiratory: Reports: dyspnea. Denies: cough, wheezes, hemoptysis, stridor Gastrointestinal: Denies: abdominal pain, nausea, vomiting, diarrhea, constipation, hematemesis Genitourinary: Denies: urgency, dysuria, frequency Musculoskeletal: Denies: back pain, neck pain, joint swelling Integumentary: Denies: rash, abrasion Neurological: Denies: headache, weakness, numbness, paresthesias Psychiatric: Denies: anxiety, depression Endocrine: Denies: fatigue, heat or cold intolerance Past Medical History - Past Medical History Medical history: Reports: coronary artery disease, diabetes, hyperlipidemia, hypertension, myocardial infarction, renal disease Surgical history: Reports: hysterectomy, other Psychiatric history: Reports: no psych history, anxiety 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: 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 history - Social History Smoking Status: Never smoker Smokeless Tobacco Status: No Alcohol use: Reports: none Drug use: Reports: none Physical Exam - General Limitations: no limitations General appearance: alert, in no apparent distress - Head Head exam: atraumatic, normocephalic - Eye Eye exam: Present: normal appearance, PERRL - ENT ENT exam: normal exam, normal oropharynx, mucous membranes moist - Neck Neck exam: Present: normal inspection, full ROM, trachea midline - Chest Chest inspection: Present: normal inspection, symmetric chest wall rise - Respiratory Respiratory exam: Present: normal lung sounds bilaterally. Absent: respiratory distress, wheezes, stridor - Cardiovascular Cardiovascular exam: Present: regular rate, normal rhythm, normal heart sounds - Abdominal Exam Abdominal exam: Present: soft, Non-Tender, normal bowel sounds. Absent: distention, guarding, rebound, rigidity - Extremities Exam Extremities exam: Present: normal inspection. Absent: pedal edema - Back Exam Back exam: Present: normal inspection - Neurological Exam Neurological exam: Present: alert, oriented X3 - Psychiatric Psychiatric exam: Present: normal affect, normal mood - Skin Skin exam: Present: warm, dry, intact Course Vital Signs Temperature 97.8 F 09/25/18 15:46 Pulse Rate 69 09/25/18 15:46 Respiratory Rate 15 09/25/18 15:46 Blood Pressure 127/80 09/25/18 15:46 O2 Sat by Pulse Oximetry 100 09/25/18 15:46 Temperature 97.6 F 09/25/18 23:50 Pulse Rate 62 09/25/18 23:50 Respiratory Rate 14 09/25/18 23:50 Blood Pressure 125/71 09/25/18 23:50 O2 Sat by Pulse Oximetry 98 09/25/18 23:50 Oxygen Delivery Oxygen Delivery Room Air Medical Decision Making - MDM Narrative Medical decision making narrative: 50-year-old female with history of several stents, most recently November 2017 present with chest pain. Given the patient's significant history obtained EKG, chest x-ray, CBC, BMP, troponin. EKG showed no acute changes. Troponin negative 1. Chest x-ray unremarkable. Given the patient's significant medical history and cardiac risk factors will admit the patient for further cardiac workup. Discussed case with on-call hospitalist who agrees with plan for admission. Patient agrees with and understands course of treatment plan including plan for admission. All questions answered. - Medical Records Medical records reviewed: Yes I reviewed the patient's medical records. - Lab Data Lab results reviewed: Yes I reviewed the patient's lab results. Result diagrams: 09/25/18 19:30 09/25/18 16:28 Lab Results 09/25/18 09/25/18 09/25/18 Range/Units 16:28 16:28 16:28 WBC 9.0 (4.3-11.1) K/mcL RBC 3.59 L (3.82-4.97) M/mcL Hgb 10.2 L (11.5-15.4) g/dL Hct 31.9 L (35.3-44.9) % MCV 88.9 (83.0-100.0) fL MCH 28.4 (28.0-33.3) pg MCHC 32.0 (31.6-35.5) g/dL RDW 14.1 (11.5-14.5) % Plt Count 247 (140-400) K/mcL MPV 11.1 (9.4-12.4) fL Immature Gran % 0.2 (0-4) % Seg Neutrophils % 65.4 % Lymphocytes % 18.6 % Monocytes % 8.8 % Eosinophils % 6.4 % Basophils % 0.6 % Neutrophils # 5.9 (1.6-8.9) K/mcL Lymphocytes # 1.7 (0.6-4.6) K/mcL Monocytes # 0.8 (0.0-1.3) K/mcL Eosinophils # 0.6 (0.0-0.6) K/mcL Basophils # 0.1 (0.0-0.2) K/mcL PT 12.6 H (9.4-12.1) Seconds INR 1.1 APTT 31.6 (26.0-36.0) Seconds D-Dimer 563 H (0-500) ng/mLFEU Sodium 139 (136-145) mEq/L Potassium 4.0 (3.5-5.1) mEq/L Chloride 107 (98-107) mEq/L Carbon Dioxide 24 (23-29) mEq/L BUN 24 H (6-20) mg/dL Creatinine 0.96 (0.60-1.20) mg/dL Est GFR ( Amer) > 60 (> 60) Est GFR (Non-Af Amer) 60 (> 60) BUN/Creatinine Ratio 25 (6-26) Glucose 104 (70-105) mg/dL Calculated Osmolality 292 (280-300) Calcium 9.4 (8.6-10.3) mg/dL Magnesium 1.7 (1.6-2.6) mg/dL Troponin I < 0.03 (< 0.04) ng/mL TSH 2.633 (0.340-5.600) mcIU/mL - Radiology Data Radiology results reviewed: Yes I reviewed the patient's radiology results. Chest X-Ray 09/25/18 16:17 IMPRESSION: Borderline cardiomegaly. No evidence for acute cardiopulmonary pathology. D/ / Denis Guzman MD / Denis Guzman MD Interpreting Provider: Denis Guzman MD - EKG Data EKG #1 EKG attestation: Yes I reviewed and interpreted this EKG. EKG results narrative: Normal sinus rhythm rate of 73. Left axis deviation. T-wave inversions in aVR and aVL. When compared with prior from 08/29/18 there are no significant rabia nges. No evidence of ST elevation. Attestation Statement - Attestation Attestation: I, Anselmo Antoine, examined this patient and my medical decision-making was reviewed with the MANAGER CONTACT/PA/Advanced Practice Nurse/Resident Physician. I agree with the documented findings, disposition and treatment plan as described except to the extent set forth below. 58-year-old female presents emergency Department with concerns of chest pain. Patient states she has a history of cardiac disease multiple stents in the past and the pain today feels similar. Patient states the pain is in her left chest and radiates to her left arm. Patient was given morphine and multiple doses of nitroglycerin prior to arrival. This helped her pain but did not take it away. Patient denies recent syncopal episodes. Has associated shortness of breath but denies diaphoresis, palpitations, syncope. Patient had a negative initial troponin. EKG did not show evidence of acute ST elevation. Patient will be admitted to the hospitalist for further care and evaluation.
--- NOTE | 2018-09-25 19:00 | Internal Med History&Physical ---
Date of Encounter: 09/25/18 Time of Encounter: 11:00 Internal Medicine - H&P: HPI Chief complaint: Chest pain Admitted From: Home Plans for Post Hospital Care: Home History of present illness: Patient is a 58-year-old female with past medical history significant for coronary arterial disease with 4 stents placed in 11/2017, hypertension, diabetes and hyperlipidemia who was sent from cardiologists office due to chest pain and abnormal EKG. She reported of having a scheduled appointment at cardiologists office but during visitation developed left-sided chest pain which was constant without any provoking or relieving factors which radiated down her left arm without any associated symptoms. Patient reported that cardiologists office ordered EKG which was found to be abnormal so patient was sent to the ER for admission and further evaluation. Patient had a recent left heart catheterization during her hospital stay on 08/04/18 with a 30-40% stenosis in mid LAD, 65% stenosis and first diagonal with patent stent, 50-60% stenosis in the mid circumflex and 20% stenosis in. right PDA in addition to 30% stenosis in RPAV. Medical management was recommended at that time an outpatient setting with nitrates, aspirin, statin, beta linda and Brilinta. In the ER this admission, her first set of troponins were negative. Patient will be admitted to the medical surgical floor for ACS rule out. Past Med Surg Social Fam HX - Past Medical History Medical history: coronary artery disease, diabetes, hyperlipidemia, hypertension, myocardial infarction, renal disease Additional medical history: NSTEMI with STENTS November 2017, Psychiatric history: no psych history, anxiety - Past Surgical History Surgical History: hysterectomy, other Additional surgical history: kidney removed 2017, cardiac stent X 4 - Social History Smoking Status: Never smoker Smokeless Tobacco Status: No Alcohol use: none Drug use: none - Family History Father Family Member Ethnicity: Non- Living Status: Hx Family Cardiac Disorders: Yes (TN, HTN, HLD) Mother Family Member Ethnicity: Non- Living Status: Hx Family Cardiac Disorders: Yes (CHF) Hx Family Endocrine Disorder: Yes (Hypoglycemia) Brother Adopted: Yes Family Member Ethnicity: Non- Living Status: Still Living Sister Family Member Ethnicity: Non- Living Status: Hx Family Cardiac Disorders: Yes (CABG, HD) Hx Family Endocrine Disorder: Yes (DM) Internal Medicine - H&P: Meds Aspirin Enteric Coated [Aspirin EC] 81 mg PO DAILY 30 Days #30 tablet. 12/07/17 [Rx] Atorvastatin [Lipitor] 80 mg PO HS 30 Days #30 tablet 12/07/17 [Rx] Nitroglycerin 0.4 mg SL Q5MIN PRN 30 Days #30 tab.subl 12/07/17 [Rx] Metformin HCl [Glucophage] 1,000 mg PO BID 04/28/18 [History] traZODone [TraZODone] 50 mg PO HS PRN 06/09/18 [History] Ticagrelor [Brilinta] 90 mg PO DAILY 06/26/18 [History] Docusate [Colace] 100 mg PO BID #60 capsule 06/28/18 [Rx] Citalopram [CeleXA] 20 mg PO DAILY tablet 08/05/18 [Rx] Lisinopril [Zestril] 5 mg PO DAILY #30 tablet 08/05/18 [Rx] Isosorbide MONOnitrate (24 HR) [Imdur] 90 mg PO DAILY #60 tab.er.24h 08/29/18 [Rx] Cyclobenzaprine [Flexeril] 10 mg PO TID PRN #21 tablet 09/07/18 [Rx] Allergy/AdvReac Type Severity Reaction Status Date / Time No Known Allergies Allergy Verified 08/01/18 21:14 All Systems PM: A 10-system review of systems was performed and is negative for pertinent findings except as documented above in the HPI. - Constitutional Vitals: Temp Pulse Resp BP Pulse Ox 97.8 F 60 18 139/77 99 09/25/18 15:46 09/25/18 17:22 09/25/18 17:22 09/25/18 17:22 09/25/18 17:22 General appearance: Present: A&O X 3 Exam: As above - Head Head exam: Present: atraumatic, normocephalic - Eye Eye exam: Present: normal appearance - ENT ENT exam: Present: mucous membranes moist - Respiratory Respiratory exam: Present: CTAB. Absent: accessory muscle use, rales, rhonchi, wheezes - Cardiovascular Cardiovascular exam: Present: RRR, +S1, +S2. Absent: diastolic murmur, gallop, rubs, systolic murmur - GI/Abdominal GI/Abdominal exam: Present: normal bowel sounds, soft, no peritoneal signs. Absent: distended, tenderness - Extremities Exam Extremities exam: Absent: pedal edema - Neurological Exam Neurological exam: Present: alert. Absent: altered - Psychiatric Psychiatric exam: Present: normal mood - Skin Skin exam: Present: normal color Internal Med - H&P Results - Labs CBC & Chem 7: 09/25/18 16:28 09/25/18 16:28 Labs: Short CBC 09/25/18 Range/Units 16:28 WBC 9.0 (4.3-11.1) K/mcL Hgb 10.2 L (11.5-15.4) g/dL Hct 31.9 L (35.3-44.9) % Plt Count 247 (140-400) K/mcL Neutrophils # 5.9 (1.6-8.9) K/mcL BMP 09/25/18 16:28 Sodium 139 Potassium 4.0 Chloride 107 Carbon Dioxide 24 BUN 24 H Creatinine 0.96 Glucose 104 Calcium 9.4 Cardiac Enzymes 09/25/18 Range/Units 16:28 Troponin I < 0.03 (< 0.04) ng/mL - Impressions ITS Impressions Chest X-Ray 09/25/18 16:17 IMPRESSION: Borderline cardiomegaly. No evidence for acute cardiopulmonary pathology. D/ / Denis Guzman MD / Denis Guzman MD Interpreting Provider: Denis Guzman MD - Assessment and plan (1) Chest pain Current Visit: No Status: Acute Assessment and plan: Patient sent to the ER by retail planner's office due to unstable angina First set of troponins negative and EKG in ER with no ST/T-wave changes Discussed with and consulted cardiology with recommendations to start patient on heparin drip Will trend troponins and monitor on telemetry Qualifiers: Chest pain type: chest pain due to myocardial ischemia Ischemic chest pain type: stable angina pectoris Qualified Code(s): I20.8 - Other forms of angina pectoris (2) CAD (coronary artery disease) Current Visit: No Status: Chronic Assessment and plan: Patient with 4 stents placed in 11/2017 Patient had a recent left heart catheterization during her hospital stay on 08/04/18 with a 30-40% stenosis in mid LAD, 65% stenosis and first diagonal with patent stent, 50-60% stenosis in the mid circumflex and 20% stenosis in. right PDA in addition to 30% stenosis in RPAV. Medical management was recommended at that time an outpatient setting with nitrates, aspirin, statin, beta linda and Brilinta. Management for ACS rule out as above Qualifiers: Coronary Disease-Associated Artery/Lesion type: [place] artery [place] vs. transplanted heart: [place] heart Associated angina: with unstable angina Qualified Code(s): I25.110 - Atherosclerotic heart disease of [place] coronary artery with unstable angina pectoris (3) Type II diabetes mellitus Current Visit: No Status: Chronic Assessment and plan: Will cover with sliding scale insulin and hold oral diabetic medications Qualifiers: Diabetes mellitus shelter insulin use: without local intermodal truck driver use Diabetes mellitus complication status: without complication Qualified Code(s): E11.9 - Type 2 diabetes mellitus without complications (4) Mood disorder Current Visit: Yes Status: Acute Assessment and plan: Continue home dose of SSRI (5) DVT prophylaxis Current Visit: No Status: Acute Assessment and plan: Patient on heparin drip as above - Time Spent With Patient Total time spent is greater than 50% in coordination of care (as documented) at patient's floor/unit and/or counseling patient:
[2018-09-25] MEDS ORDERED: traZODone 50 MG TABLET PO PRN (19:07)
[2018-09-25] MEDS ORDERED: Naloxone 0.4 MG/ML INJ IVP PRN (19:12)
[2018-09-25] MEDS ORDERED: *HR* Heparin 5,000 UNIT/ML VIAL IVP PRN ×2 (19:14)
[2018-09-25] MEDS ORDERED: *HR* Heparin 5,000 UNIT/ML VIAL IVP ONE (19:14)
[2018-09-25] MEDS ORDERED: Heparin 25,000 UNIT/500 ML D5W 25,000 UNIT/500 ML BAG IVC SCH (19:15)
[2018-09-25] MEDS ORDERED: Dextrose Gel 15 GM/37.5 ML TUBE PO PRN ×2 (19:18)
[2018-09-25] MEDS ORDERED: D5% in Water 1,000 ML IVC PRN (19:18)
[2018-09-25] MEDS ORDERED: *HR* Dextrose 50 % in Water (Syg) 50 ML SYRINGE IVP PRN (19:18)
[2018-09-25 19:43] LABS: Hematocrit 31.6 % (35.3-44.9); Hemoglobin 10.2 g/dL (11.5-15.4); Mean Corpuscular HGB Conc 32.3 g/dL (31.6-35.5); Mean Corpuscular Hemoglobin 29.3 pg (28.0-33.3); Mean Corpuscular Volume 90.8 fL (83.0-100.0); Platelet Count 255 K/mcL (140-400); Red Blood Count 3.48 M/mcL (3.82-4.97); Red Cell Distribution Width 14.2 % (11.5-14.5)
[2018-09-25 19:52] LABS: INR 1.1; Prothrombin Time 12.2 Seconds (9.4-12.1)
[2018-09-25 20:59] LABS: Bilirubin,Urine Negative (Negative); Blood,Urine Negative (Negative); Clarity,Urine Clear (Clear); Color,Urine Yellow (Yellow); Glucose,Urine (UA) Normal (Normal); Ketones,Urine Negative (Negative); Leukocyte Esterase,Urine Trace (Negative); Nitrite,Urine Negative (Negative); PH,Urine 5.5 pH Units (5.0-8.0); Protein,Urine Negative (Neg-Trace); Specific Gravity,Urine 1.019 (1.010-1.025); Urobilinogen,Urine Normal (Normal)
[2018-09-25 21:00] LABS: Bacteria,Urine None Seen per hpf (None-Few); Hyaline Casts,Urine None Seen per lpf (None-Few); Squamous Epithelial Cell,Urine Many per lpf (None-Few)
[2018-09-25 21:19] LABS: RBC,Urine 0-3 per hpf (0-3)
[2018-09-25 21:20] LABS: Yeast,Urine Moderate per hpf (None Seen)
[2018-09-25] MEDS: Insulin LISPRO 300 UNITS/3 ML VIAL SQ SCH (23:17)
[2018-09-26 03:16] LABS: Basophils # 0.1 K/mcL (0.0-0.2); Basophils % 0.5 %; Eosinophils # 0.5 K/mcL (0.0-0.6); Eosinophils % 5.3 %; Hematocrit 30.5 % (35.3-44.9); Hemoglobin 9.8 g/dL (11.5-15.4); Immature Granulocytes % 0.3 % (0-4); Lymphocytes # 2.1 K/mcL (0.6-4.6); Lymphocytes % 21.3 %; Mean Corpuscular HGB Conc 32.1 g/dL (31.6-35.5); Mean Corpuscular Volume 90.2 fL (83.0-100.0); Mean Platelet Volume 10.8 fL (9.4-12.4); Monocytes # 0.7 K/mcL (0.0-1.3); Monocytes % 6.6 %; Neutrophils # 6.6 K/mcL (1.6-8.9); Platelet Count 242 K/mcL (140-400); Red Blood Count 3.38 M/mcL (3.82-4.97); Red Cell Distribution Width 14.4 % (11.5-14.5)
[2018-09-26 03:33] LABS: BUN/Creatinine Ratio 23 (6-26); Blood Urea Nitrogen 24 mg/dL (6-20); Calcium 8.8 mg/dL (8.6-10.3); Carbon Dioxide 25 mEq/L (23-29); Chloride 107 mEq/L (98-107); Glucose 254 mg/dL (70-105); Osmolality,Calculated 299 (280-300); Potassium 4.2 mEq/L (3.5-5.1); Sodium 138 mEq/L (136-145); eGFR For Non-African Americans 53 (> 60)
[2018-09-26] MEDS: Insulin LISPRO 300 UNITS/3 ML VIAL SQ SCH ×4 (09:03→20:45)
[2018-09-26] MEDS: Isosorbide MONOnitrate (24 HR) 30 MG TAB.ER.24H PO SCH (09:05)
[2018-09-26] MEDS: Aspirin Enteric Coated 81 MG Tablet PO SCH (09:06)
[2018-09-26] MEDS: *HR* Ticagrelor 90 MG TABLET PO SCH (09:06)
--- NOTE | 2018-09-26 10:28 | Cardiology Consult Note ---
<Acosta Fu R - Last Filed: 09/26/18 10:44> Date of Encounter: 09/26/18 Time of Encounter: 10:26 Assessment and Plan (1) CAD (coronary artery disease) Current Visit: Yes Status: Chronic Hx of NH s/p PCI in November 2017. S/p PCI with CAROLA to Ramus, mid and distal LAD, and diagonal. Moderate CAD remaining. [facility] 07/2018 moderate 2V CAD, no intervention. Plan for [facility] as above. Continue asa, statin, BB, and brilita. Add nitrates. Qualifiers: Coronary Disease-Associated Artery/Lesion type: kaibab artery [place] vs. transplanted heart: kaibab heart Associated angina: with unstable angina Qualified Code(s): I25.110 - Atherosclerotic heart disease of kaibab coronary artery with unstable angina pectoris (2) Solitary kidney Current Visit: Yes Status: Acute Recent left nephrectomy for calcified, non-functioning kidney on 06/26. Kidney function stable. (3) Chest pain Current Visit: Yes Status: Acute Patient presented with symptoms concerning for unstable angina. On heparin gtt. Troponin negative x2. No ST/T wave changes noted on ECG. NH with multivessel PCI 11/3017. [facility] 07/2018 moderate 2V CAD without intervention. Discussed with Dr. Cervantes. Recommend [facility] with possible PCI; alternatives, risks, and benefits discussed, she is agreeable to proceed. Continue asa, statin, BB, and brilinta. Qualifiers: Chest pain type: chest pain due to myocardial ischemia Ischemic chest pain type: unstable angina pectoris Qualified Code(s): I20.0 - Unstable angina Discussion w patient/family: The assessment and plan as outlined above was discussed with the patient and/or family members who expressed understanding and agreement. All questions were answered. Thank you for involving us in the care of your patient. Please call with any questions. I will discuss all the above with Dr. Cervantes and make changes as necessary. History of Present Illness Consult date: 09/26/18 Requesting physician: Kervin Lewis Consult reason: chest pain Chief complaint: chest pain History of present illness: Ms. Thornton is a 58 year old female with PMHx significant of CAD s/p NH (NH, November 2017), DMII, HTN, morbid obesity, and recent left nephrectomy who presented to the ED via EMS from outpt cardiology appt. At outpt appt she was having chest pain 07/02, described as pressure/heaviness with radiation down left arm. Pt reports pain was constant, started yesterday and persists today, currently 06/02. Troponin negative. Recent [facility] 07/2018 for abnormal stress test without intervention. Prior CV testing: TTE 12/05/17: EF 60%, mild LVDD, mild MR, no PH, normal wall motion LHC 12/05/17: EF 40%; s/p successful PTCA/CAROLA to Ramus, mid and distal LAD and diagonal; otherwise moderate CAD (LCx 60%). Limited TTE 05/2018: LVEF 55-60%. Increased LV wall thickness - measurements not optimally obtained (moderate by Echo 12/05/2017). There is a small pericardial effusion present. There is no echocardiographic evidence on this limited study for tamponade. [facility] 08/04/18: There is moderate 2V CAD. EF 65%. 30-40% stenosis in the Mid LAD. 65% stenosis in the 1st Diagonal with a patent stent. 1st diagonal is a small vessel. 50-60% stenosis in the Mid Circumflex. Circumflex is a tortuous vessel. There is a 20% stenosis in the Right PDA. There is a 30% stenosis in the RPAV. Past Med Surg Social Fam HX - Past Medical History Medical history: coronary artery disease, diabetes, hyperlipidemia, hypertension, myocardial infarction, renal disease Additional medical history: NSTEMI with STENTS November 2017, Psychiatric history: no psych history, anxiety - Past Surgical History Surgical History: hysterectomy, other Additional surgical history: kidney removed 2017, cardiac stent X 4 - Social History Smoking Status: Never smoker Smokeless Tobacco Status: No Alcohol use: none Drug use: none - Family History Father Family Member Ethnicity: Non- Living Status: Hx Family Cardiac Disorders: Yes (NH, HTN, HLD) Mother Family Member Ethnicity: Non- Living Status: Hx Family Cardiac Disorders: Yes (CHF) Hx Family Endocrine Disorder: Yes (Hypoglycemia) Brother Adopted: Yes Family Member Ethnicity: Non- Living Status: Still Living Sister Family Member Ethnicity: Non- Living Status: Age at : 61 Cause of : kidney disease Hx Family Cardiac Disorders: Yes Hx Family Respiratory Disorders: No Hx Family Cancer: No Hx Family GI Disorders: No Hx Family Genitourinary Disorders: Yes Hx Family Endocrine Disorder: Yes Hx Family Musculoskeletal Disorders: No Hx Family Neuromuscular Disorders: No Hx Family Neurologic Disorders: No Hx Family HEENT Disorders: No Hx Family Autoimmune Disorders: No Hx Family Reproductive Disorders: Yes Hx Family Psychosocial Disorders: No Hx Family Medical Disorders: No Medications and Allergies Aspirin Enteric Coated [Aspirin EC] 81 mg PO DAILY 30 Days #30 tablet.dr 12/07/17 [Rx] Atorvastatin [Lipitor] 80 mg PO HS 30 Days #30 tablet 12/07/17 [Rx] Nitroglycerin 0.4 mg SL Q5MIN PRN 30 Days #30 tab.subl 12/07/17 [Rx] Metformin HCl [Glucophage] 1,000 mg PO BID 04/28/18 [History] traZODone [TraZODone] 50 mg PO HS PRN 06/09/18 [History] Ticagrelor [Brilinta] 90 mg PO BID 06/26/18 [History] Docusate [Colace] 100 mg PO BID #60 capsule 06/28/18 [Rx] Citalopram [CeleXA] 20 mg PO DAILY tablet 08/05/18 [Rx] Lisinopril [Zestril] 5 mg PO DAILY #30 tablet 08/05/18 [Rx] Isosorbide MONOnitrate (24 HR) [Imdur] 90 mg PO DAILY #60 tab.er.24h 08/29/18 [Rx] Cyclobenzaprine [Flexeril] 10 mg PO TID PRN #21 tablet 09/07/18 [Rx] Allergy/AdvReac Type Severity Reaction Status Date / Time No Known Allergies Allergy Verified 08/01/18 21:14 All Systems Review: The remainder of the systems were reviewed and are negative - Cardiovascular Cardiovascular: as per HPI, chest pain at rest, chest pain with exertion, radiating jaw, neck or arm pain Physical Examination Vital Signs, Last 4 Hours Temp Pulse Resp BP Pulse Ox 09/26/18 07:34 97.8 F 98 17 97/67 95 Vital Signs Temp Pulse Resp BP Pulse Ox 09/26/18 07:34 97.8 F 98 17 97/67 95 09/26/18 04:48 97.5 F L 63 16 123/76 98 09/25/18 23:50 97.6 F 62 14 125/71 98 09/25/18 19:10 97.8 F 57 14 127/78 96 09/25/18 18:40 19 143/70 09/25/18 17:22 60 18 139/77 99 09/25/18 16:59 77 18 137/84 97 09/25/18 16:53 65 23 154/80 97 09/25/18 16:44 66 12 136/71 97 09/25/18 15:46 97.8 F 69 15 127/80 100 Intake and Output 09/25/18 09/26/18 09/26/18 23:59 07:59 15:59 Intake Total 0 / 0 128 / 128 Output Total 400 / 400 0 / 0 Balance -400 / -400 128 / 128 Intake: IV Fluids 128 / 128 Heparin 25,000 UNIT/500 ML D5W 128 / 128 25,000 unit In 500 ml @ 9 UNIT/ KG/HR 19.692 mls/hr IVC .Q24H TOÑO Rx#:[id number] Oral 0 / 0 0 / 0 Output: Urine 400 / 400 0 / 0 Other: # Voids 1 Weight 109.4 kg 109.3 kg Blood Glucose* 85 132 Patient Weight 09/26/18 23:59 Weight 109.3 kg General: Conversant, No Apparent Distress HEENT: Atraumatic, Normocephaly, Mucus Membranes Moist Neck: No JVD, Normal carotid pulses Cardiac: Reg Rate and Rhythm, Normal S1 and S2, No Murmur Lungs: Normal Breath Sounds, No Wheeze, Rales, Rhonchi Neuro: Alert and responsive, No focal deficits noted Abdomen: Soft, Non-Tender Skin: No rashes noted on visualized skin Musculoskeletal: No Chest Wall Tenderness Extremities: No Clubbing, No Cyanosis, No Edema, Normal Pulses Results 09/26/18 02:59 09/26/18 02:59 Lab Results 09/25/18 09/25/18 09/25/18 16:28 16:28 16:28 WBC 9.0 Hgb 10.2 L Hct 31.9 L Plt Count 247 INR 1.1 APTT 31.6 D-Dimer 563 H Sodium 139 Potassium 4.0 Chloride 107 Carbon Dioxide 24 BUN 24 H Creatinine 0.96 Glucose 104 Calcium 9.4 Magnesium 1.7 Troponin I < 0.03 TSH 2.633 09/25/18 09/25/18 09/25/18 19:30 19:30 19:30 WBC 9.4 Hgb 10.2 L Hct 31.6 L Plt Count 255 INR 1.1 APTT D-Dimer Sodium Potassium Chloride Carbon Dioxide BUN Creatinine Glucose Calcium Magnesium Troponin I < 0.03 TSH 09/26/18 09/26/18 09/26/18 02:59 02:59 02:59 WBC 10.0 Hgb 9.8 L Hct 30.5 L Plt Count 242 INR APTT D-Dimer Sodium 138 Potassium 4.2 Chloride 107 Carbon Dioxide 25 BUN 24 H Creatinine 1.06 Glucose 254 H Calcium 8.8 Magnesium Troponin I < 0.03 TSH Short CBC 09/26/18 09/25/18 09/25/18 Range/Units 02:59 19:30 16:28 WBC 10.0 9.4 9.0 (4.3-11.1) K/mcL Hgb 9.8 L 10.2 L 10.2 L (11.5-15.4) g/dL Hct 30.5 L 31.6 L 31.9 L (35.3-44.9) % Plt Count 242 255 247 (140-400) K/mcL Neutrophils # 6.6 5.9 (1.6-8.9) K/mcL BMP 09/26/18 09/25/18 Range/Units 02:59 16:28 Sodium 138 139 (136-145) mEq/L Potassium 4.2 4.0 (3.5-5.1) mEq/L Chloride 107 107 (98-107) mEq/L Carbon Dioxide 25 24 (23-29) mEq/L BUN 24 H 24 H (6-20) mg/dL Creatinine 1.06 0.96 (0.60-1.20) mg/dL Glucose 254 H 104 (70-105) mg/dL Calcium 8.8 9.4 (8.6-10.3) mg/dL Cardiac Enzymes 09/26/18 09/26/18 09/25/18 Range/Units 09:26 02:59 19:30 Troponin I < 0.03 < 0.03 < 0.03 (< 0.04) ng/mL 09/25/18 Range/Units 16:28 Troponin I < 0.03 (< 0.04) ng/mL Urine 09/25/18 Range/Units 20:50 Urine Color Yellow (Yellow) Urine Clarity Clear (Clear) Urine pH 5.5 (5.0-8.0) pH Units Ur Specific [place] 1.019 (1.010-1.025) Urine Protein Negative (Neg-Trace) mg/dL Urine Glucose (UA) Normal (Normal) mg/dL Impressions Chest X-Ray 09/25/18 16:17 IMPRESSION: Borderline cardiomegaly. No evidence for acute cardiopulmonary pathology. D/ / Denis Guzman MD / Denis Guzman MD Interpreting Provider: Denis Guzman MD Active Medications Aspirin (Aspirin Ec) 81 mg PO DAILY [facility] Stop: 03/28/19 09:01 Last Admin: 09/26/18 09:06 Dose: 81 mg Atorvastatin Calcium (Lipitor) 80 mg PO HS TOÑO Stop: 03/27/19 21:01 Last Admin: 09/25/18 20:48 Dose: 80 mg Citalopram Hydrobromide (Celexa) 20 mg PO DAILY TOÑO Stop: 03/28/19 09:01 Last Admin: 09/26/18 09:05 Dose: 20 mg Cyclobenzaprine HCl (Flexeril) 10 mg PO TID PRN PRN Reason: Pain Stop: 03/27/19 19:08 Dextrose/Water (Dextrose 50% (Syg)) 25 ml IVP AD PRN PRN Reason: Hypoglycemia Stop: 03/27/19 19:19 Docusate Sodium (Colace) 100 mg PO BID [facility]; Protocol Stop: 03/27/19 21:01 Last Admin: 09/26/18 09:05 Dose: 100 mg Glucagon (Glucagen) 1 mg IM ONCE PRN PRN Reason: Hypoglycemia Stop: 03/27/19 19:19 Glucose (Gluctose) 15 gm PO ONCE PRN PRN Reason: Hypoglycemia Stop: 03/27/19 19:19 Glucose (Gluctose) 30 gm PO ONCE PRN PRN Reason: Hypoglycemia Stop: 03/27/19 19:19 Heparin Sodium (Porcine) (Heparin) 4,000 unit IVP Q6HR PRN PRN Reason: SEE COMMENTS Stop: 03/27/19 19:15 Heparin Sodium (Porcine) (Heparin) 2,000 unit IVP Q6H PRN PRN Reason: SEE COMMENTS Stop: 03/27/19 19:15 Heparin Sodium/Dextrose (Heparin 25,000 Unit/500 Ml D5w) 25,000 unit in 500 mls @ 19.692 mls/hr IVC .Q24H TOÑO; Protocol Stop: 03/27/19 19:16 Last Titration: 09/26/18 03:33 Dose: 9 unit/kg/hr, 19.692 mls/hr Dextrose (Dextrose 5%) 1,000 mls @ 100 mls/hr IVC .Q10H PRN PRN Reason: HYPOGLYCEMIA Stop: 03/27/19 19:19 Insulin Human Lispro (Humalog) 0 units SQ TIDAC [facility]; Protocol Stop: 03/28/19 07:31 Last Admin: 09/26/18 09:03 Dose: Not Given Insulin Human Lispro (Humalog) 0 units SQ HS TOÑO; Protocol Stop: 03/27/19 21:01 Last Admin: 09/25/18 23:17 Dose: Not Given Isosorbide Mononitrate (Imdur) 90 mg PO DAILY [facility] Stop: 03/28/19 09:01 Last Admin: 09/26/18 09:05 Dose: 90 mg Lisinopril (Zestril) 5 mg PO DAILY [facility]; Protocol Stop: 03/28/19 09:01 Last Admin: 09/26/18 09:05 Dose: 5 mg Naloxone HCl (Narcan) 0.4 mg IVP Q2MIN PRN PRN Reason: SEE COMMENTS Stop: 03/27/19 19:13 Nitroglycerin (Nitroglycerin) 0.4 mg SL Q5MIN PRN PRN Reason: Chest Pain Stop: 03/27/19 19:08 Ticagrelor (Brilinta) 90 mg PO DAILY [facility] Stop: 03/28/19 09:01 Last Admin: 09/26/18 09:06 Dose: 90 mg Trazodone HCl (Trazodone) 50 mg PO HS PRN PRN Reason: Sleep Stop: 03/27/19 19:08 - Imaging and Cardiology Stress Test: report reviewed Echo: report reviewed Cardiac cath: report reviewed - EKG Interpretation EKG results cardiology: personally reviewed (SR) Consult Discharge Plan - Plan Referrals: Hannah Queen MD [Primary Care Provider] - <Brandon Cervantes - Last Filed: 10/02/18 14:23> Date of Encounter: 09/28/18 Time of Encounter: 16:00 - Attending Attestation I have personally performed a face to face evaluation on this patient. I have reviewed and agree with the care plan. History and Exam by me shows: CC: Chest pain HPI: Pt presents for evaluation of precordial chest pain, severe, 8/10 when occurs, pressure sensation, starts less severe and builds, until radiates down left arm. Pt reports this episode of pain started at rest, was constant, lasted 12 hours, untils was evaluated in our office, and sent to ER for further evaluation. Pain has improved to 2/10, then returned. Chest pain at rest, quietly conversing is now 9/10, non radiating, not associated with nausea, diaphoresis or shortness of breath. Pt reports chest is similar to previous episodes of chest pain when had previous NSTEMI with PCI 12/08. ROS: reviewed PHM: Reviewed PE: pt seen and examined, chart reviewed agree with findings as documented. Labs, Xrays, EKgs reviewed IMP/Plan: 1. Chest pain, similar to previous presentation for NSTEMI, discussed options, risks, benefits of invasive strategy, recomend LHC/Poss, discussed last [facility] July 2018, possibilty of change in interim, await results of diagnostic imaging. Pt elects to proceed with LHC/Poss. 2. CAD: severe double vessel CAD post PCI with CAROLA D1, moderte non obstructive disease in LAD, Cx and Mid RCA. 3. Solitary kidney, status post left nephrectomy for non functioning kidney . Assessment and Plan Discussion w patient/family: The assessment and plan as outlined above was discussed with the patient and/or family members who expressed understanding and agreement. All questions were answered. Thank you for involving us in the care of your patient. Please call with any questions. History of Present Illness History of present illness: Ms. Thornton is a 58 year old female All Systems Review: The remainder of the systems were reviewed and are negative Physical Examination Vital Signs, Last 4 Hours Temp Pulse Resp BP Pulse Ox 10/02/18 11:13 97.9 F 66 16 138/81 96 Results 10/02/18 03:28 10/02/18 11:17 Lab Results 10/02/18 10/02/18 10/02/18 03:28 03:28 11:17 WBC 11.4 H Hgb 11.4 L Hct 37.3 Plt Count 264 Sodium 137 134 L Potassium 4.5 4.1 Chloride 105 103 Carbon Dioxide 23 26 BUN 28 H 26 H Creatinine 1.39 H 1.43 H Glucose 102 117 H Calcium 9.3 9.3
--- NOTE | 2018-09-26 11:59 | Pre-Sedation Evaluation ---
Pre-sedation evaluation - Pre-sedation checklist Date of procedure: 09/26/18 Procedure: Heart cath Recent Vitals: Last Vital Signs Temp 98.2 F 09/26/18 11:00 Pulse 59 09/26/18 11:00 Resp 17 09/26/18 11:00 BP 110/71 09/26/18 11:00 Pulse Ox 96 09/26/18 11:00 H&P (including ROS) documented in medical record: Yes Previous reaction to sedatives/anesthetics: No Dietary Status: NPO 6 hours prior to procedure Dentition: No loose teeth or bridges, dentures removed ASA Classification *see protocol: CLASS II-Mild systemic disease Cardiac Registry (Cardio Only) - Functional Capacity Functional Capacity: >=4 METS with symptoms - Clincal Frailty Scale Clinical Frailty Scale: Vulnerable
[2018-09-26] MEDS ORDERED: ISOVUE-370 200 ML INFUS..BTL ONE ×2 (12:10→13:50)
[2018-09-26] MEDS ORDERED: Nitroglycerin 1,000 MCG/10 ML VIAL IV ONE (12:10)
[2018-09-26] MEDS ORDERED: Heparin 1,000 UNITS/500 mL 500 ML ONE (12:10)
[2018-09-26] MEDS ORDERED: *HR* Heparin 10,000 UNIT/10 ML VIAL ONE (12:10)
[2018-09-26] MEDS ORDERED: 0.9 % Sodium Chloride 1,000 ML ONE ×2 (12:10→12:47)
[2018-09-26] MEDS ORDERED: *HR* Midazolam HCl 2 MG/2 ML VIAL ONE (12:54)
[2018-09-26] MEDS ORDERED: *HR* FentaNYL (PF) 100 MCG/2 ML VIAL ONE (12:54)
[2018-09-26] MEDS ORDERED: Tirofiban 12.5 MG/250ML 12.5 MG/250 ML BAG ONE (14:05)
[2018-09-26] MEDS ORDERED: Tirofiban 12.5 MG/250ML 12.5 MG/250 ML BAG IVC SCH (14:30)
--- NOTE | 2018-09-26 14:40 | Invasive Diagnostic Lab Proc ---
Name: Racheal Thornton Date of Study: 09/26/2018 Date: 1960 Ht: 64.2in Medical Record#: [id number] Age: 58 Wt: 240.30lb Gender: Female BSA: 2.12 Order #: [id number] BMI: 41.03 Physicians Procedure Physician: Ayse Mckeon MD Referring MD: Referring MD: Staff Name Position Time In Florence King RT (R) Monitor 01:02 PM Shaquille Wright RT (R) Scrub 01:02 PM Vishnu Ordonez RN Superintendent Drivers 01:02 PM Indications Indication Unstable Angina Procedures Performed Procedure L HRT ARTERY/VENTRICLE ANGIO PRQ CARD CAROLA STENT W/ANGIO 1 VSL Pre-Procedure Checklist Informed consent is complete signed and on chart. H&P is on chart. ID band is on and ID verified with patient. Patient NPO for procedure The procedure was described for the patient and questions were answered. Blood Pressure: 159/87 ECG is on chart. Rhythm: Sinus Bradycardia Plan of Care Patient will tolerate the procedure without complications. Adequate level of comfort will be maintained. Hemodynamics will remain stable Patient will recover from procedure without complications. Respiratory function will be maintained. Cardiac rhythm will remain stable. Patient temperature will be maintained. Patient and/or family have verbalized understanding of the procedure. Patient Education Chief Complaint/Reason for Test: Cardiac Cath Developmental Category: Adult (18-64 years) Developmentally Appropriate for Age: Yes Learning Barriers: None Education Needs: Procedure Education Method: Verbal Information Taught: Cardiac Cath Educational Evaluation: Able to repeat information Intravenous Access Time IV Size Location DC'd Fluid/Drip Rate Units RN 01:06 PM 20g 1 09/26" Patent On Arrival Lt Arm 0.9NaCl 25 ml/hr Allergies No Known Allergies Vital Signs Time BP (mmHg) HR (bpm) O2 Sat. RR (bpm) LOC 01:06 PM 159 / 87 57 % 16 4 = Oriented but drowsy 01:35 PM 153 / 80 62 100 % 14 01:40 PM 156 / 83 62 100 % 0 01:45 PM 170 / 80 59 100 % 16 01:50 PM 161 / 75 57 100 % 15 01:55 PM 167 / 85 57 100 % 26 02:00 PM 172 / 88 60 100 % 10 02:05 PM 172 / 82 60 100 % 22 02:10 PM 180 / 87 58 100 % 20 02:15 PM 183 / 82 63 100 % 17 02:20 PM 189 / 82 67 100 % 17 01:00 PM 191 / 85 61 97 % 0 01:05 PM 159 / 87 59 99 % 18 01:10 PM 146 / 78 54 99 % 17 01:15 PM 156 / 90 59 100 % 18 01:20 PM 157 / 83 65 99 % 18 01:25 PM 164 / 79 64 100 % 17 01:30 PM 148 / 76 64 100 % 6 Procedural Medications Time Medication Dose Units Method Given By 01:03 PM Oxygen 2 L/min nasal cannula Vishnu Ordonez RN 01:03 PM Versed 1 mg Intravenous Vishnu Ordonez RN 01:03 PM Fentanyl 50 mcg Intravenous Vishnu Ordonez RN 01:12 PM Lidocaine 2% 10 ml Subcutaneous Ayse Mckeon MD 01:27 PM Heparin 5000 units Intravenous Vishnu Ordoenz RN 02:07 PM Aggrastat Bolus: 54 ml Intravenous Vishnu Ordonez RN 02:07 PM Aggrastat 12.5mg/250ml 19.5 ml Intravenous Vishnu Ordonez RN 02:14 PM Nitroglycerin 100 mcg Intracoronary Aydin Mckeon MD 02:20 PM Nitroglycerin 300 mcg Intraarterial Vishnu Ordonez RN 02:20 PM Versed 0.5 mg Intravenous Vishnu Ordonez RN 02:20 PM Fentanyl 25 mcg Intravenous Vishnu Ordonez RN ASA Classification: CLASS II- Mild systemic disease (i.e. well-controlled diabetes, hypertension, asthma, cigarette smoking) Yifan Score Preprocedure Postprocedure Activity 2- Moves 4 extremities sustained head lift Activity Circulation 2- SBP +/= 20 points of pre-anesthetic level Circulation Consciousness 2- Awake and alert oriented x 3 Consciousness O2 Saturation 2- Able to maintain O2 satruation of 92% on room air O2 Saturation Respiratory 2- Able to deep breathe and cough well Respiratory Total Score 10 Total Score Contrast Agent: Isovue Diagnostic Contrast: 226 ml Total Contrast: 226 ml Fluoro Dose: 329 mGy Activated Clotting Time Time Seconds to Clot 01:21 PM 146 02:18 PM 320 Procedure Log Time Note Enter By 12:59 PM Vitals capture started with the following parameters, Patient=Adult, Interval=5 min, Initial Izvjahwf=206 mmHg, Deflation Rate=3 mmHg, Cuff placed on Right Arm 01:00 PM HR=61 bpm, RGTS=481/85 mmhg, SpO2=97.0 %, Resp=0 B/min, EtCO2=40 mmHg, Comment=SB 01:02 PM Recorded ECG: HR=56 Condition=Condition 1 01:02 PM 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 Bilateral groin prepped with Chloraprep by Florence King RT (R), then patient was draped. Skin intact. cedwards 01:03 PM Physician arrived 13:03 cedwards 01:03 PM Saloni completed cedwards 01:03 PM ASA Class CLASS II- Mild systemic disease (i.e. well-controlled diabetes, hypertension, asthma, cigarette smoking) cedwards 01:03 PM Sign in performed according to hospital policy. Informed consent was obtained. cedwards 01:03 PM Procedure start 13:03 cedwards 01:03 PM Time: 13:03 Oxygen on at 2 L/min per nasal cannula by Vishnu Ordonez RN cedwards 01:03 PM Time: 13:03 Versed 1 mg Intravenous Given by Vishnu Ordonez RN cedwards 01:03 PM Time: 13:03 Fentanyl 50 mcg Intravenous Given by Vishnu Ordonez RN cedwards 01:05 PM HR=59 bpm, HWSA=816/87 mmhg, SpO2=99.0 %, Resp=18 B/min, EtCO2=42 mmHg, Comment=SB 01:06 PM Time: 13:05 Patient comfortable and pain free: Yes [email or web address] 01:06 PM Time: 13:06LOC: 4 = Oriented but drowsy [email or web address] 01:06 PM Pressure channel 1 zeroed. 01:10 PM HR=54 bpm, DYRB=950/78 mmhg, SpO2=99.0 %, Resp=17 B/min, EtCO2=42 mmHg, Comment=SB 01:12 PM Time out was performed according to hospital policy. Conscious sedation and anesthesia was achieved (see medication log with in this report above) [email or web address] 01:12 PM Time: 13:12 10 ml Lidocaine 2% to right groin Subcutaneous Given by Ayse Mckeon MD [email or web address] 01:13 PM Micro-Introducer Kit utilized for sheath placement [email or web address] 01:15 PM HR=59 bpm, JBUW=008/90 mmhg, MuY9=786.0 %, Resp=18 B/min, EtCO2=42 mmHg, Comment=SB 01:15 PM Access obtained by percutaneous puncture. 6Fr 10cm Terumo [place] sheath placed in right Femoral artery. [id number] [email or web address] 01:16 PM Bolus angiogram of right Femoral complete: 4 ml/sec for a total of 7 mls [email or web address] 01:16 PM 5Fr FR 4 catheter inserted over the wire DN [email or web address] 01:16 PM 0.035 145cm Navilyst 3mmJ wire [id number] [email or web address] 01:17 PM RCA angiography performed in multiple views. [email or web address] 01:17 PM Coronary Dominance: right [email or web address] 01:18 PM Catheter removed [email or web address] 01:18 PM 5Fr FL 4 catheter inserted over the wire DN [email or web address] 01:18 PM LCA angiography performed in multiple views. [email or web address] 01:20 PM Recorded Pressure: Ao, HR=63, Condition=Condition 1 (Aorta) Ao 136/80/105 01:20 PM HR=65 bpm, PRIC=013/83 mmhg, SpO2=99.0 %, Resp=18 B/min, EtCO2=40 mmHg 01:20 PM Recorded Pressure: Ao, HR=61, Condition=Condition 1 (Aorta) Ao 131/76/101 01:23 PM Catheter removed [email or web address] 01:23 PM Recorded Pressure: LV, HR=65, Condition=Condition 1 (Left Ventricle) LV 163/14/17 01:23 PM Recorded Pressure: LV, Ao, HR=67, Condition=Condition 1 (Left Ventricle) LV 149/16/19, (Aorta) Ao 153/25/78 01:24 PM 5Fr Pigtail catheter inserted over the wire [facility] [email or web address] 01:24 PM Catheter crossed the aortic valve and was selectively placed in the left ventricle. Pressures recorded on pullback for left heart catheterization. 01:24 PM Catheter removed 01:24 PM 6Fr XB LAD 3.5 [place] Bright-Tip guide catheter was used to cannulate the PCI vessel successfully. reused? No 3 01:24 PM Inflation device was opened. 3 01:25 PM .014 BMW Zarephath 190cm guide wire across target lesion- successful. reused? No 3 01:25 PM HR=64 bpm, CAOT=094/79 mmhg, RnK1=096.0 %, Resp=17 B/min, EtCO2=43 mmHg, Comment=SB 01:27 PM Time: 13:27 Heparin 5000 units Intravenous Given by Vishnu Ordonez RN 01:28 PM Asist FFR Catheter advanced to target lesion. 01:30 PM HR=64 bpm, TAHY=004/76 mmhg, LiD2=542.0 %, Resp=6 B/min, EtCO2=41 mmHg, Comment=SB 01:30 PM Recorded Pressure: Ao, HR=63, Condition=Condition 1 (Aorta) Ao 133/68/94 01:33 PM .014 BMW Zarephath 190cm guide wire across target lesion- successful. reused? No 3 01:35 PM HR=62 bpm, CGND=868/80 mmhg, BsF1=888.0 %, Resp=14 B/min, EtCO2=41 mmHg, Comment=SB 01:40 PM HR=62 bpm, RXGE=256/83 mmhg, RsT3=523.0 %, Resp=0 B/min, EtCO2=41 mmHg, Comment=SB 01:40 PM Turnpike catheter insereted otw. 3 01:45 PM HR=59 bpm, JMIC=836/80 mmhg, KoM9=011.0 %, Resp=16 B/min, EtCO2=41 mmHg, Comment=SB 01:48 PM Flow Wire/Catheter removed intact 01:48 PM Guide wires removed intact. 3 01:49 PM .014 Door Core Assembler 190cm guide wire across target lesion- successful. reused? No [email or web address] 01:50 PM HR=57 bpm, GKRZ=278/75 mmhg, WkG3=422.0 %, Resp=15 B/min, EtCO2=42 mmHg, Comment=SB 01:55 PM HR=57 bpm, ZMKU=506/85 mmhg, TvO6=346.0 %, Resp=26 B/min, EtCO2=41 mmHg, Comment=SB 01:57 PM Guide wire removed intact. [email or web address] 01:57 PM .014 BMW Zarephath 190cm guide wire across target lesion- successful. reused? No [email or web address] 02:00 PM HR=60 bpm, NOAR=055/88 mmhg, ItS1=398.0 %, Resp=10 B/min, EtCO2=40 mmHg, Comment=SB 02:02 PM Guide wire removed intact. [email or web address] 02:02 PM .014 BMW Zarephath 300cm guide wire across target lesion- successful. reused? No [email or web address] 02:03 PM Turnpike catheter removed rubin 02:04 PM Recorded Pressure: Ao, HR=60, Condition=Condition 1 (Aorta) Ao 162/78/111 02:05 PM HR=60 bpm, RZHZ=130/82 mmhg, PbG4=802.0 %, Resp=22 B/min, EtCO2=41 mmHg, Comment=SB 02:06 PM 2.0 mm x 12 mm Emerge Monorail balloon across target lesion- successful. reused? No [email or web address] 02:07 PM Time: 14:07 Aggrastat Bolus: 54.0 ml Intravenous Given by Vishnu Ordonez RN [place]uthrie pump [email or web address] 02:08 PM Time: 14:07 Aggrastat 12.5mg/250ml 19.5 ml Intravenous Given by Vishnu Ordonez RN Guthrie pump [email or web address] 02:08 PM Balloon inflated @ 6 carmen for 10 seconds [email or web address] 02:10 PM HR=58 bpm, LOII=747/87 mmhg, OjU3=802.0 %, Resp=20 B/min, Comment=SB 02:11 PM Balloon catheter removed intact. [email or web address] 02:11 PM 3.0mm x 20mm Synergy drug-eluting stent across target lesion- successful Lot #[id number] grant 02:12 PM Stent deployed @ 9 carmen for 8 seconds [email or web address] 02:12 PM Stent balloon reinflated @ 14 carmen for 6 seconds grant 02:13 PM Stent delivery system removed intact. [email or web address] 02:13 PM Guide wire removed intact. [email or web address] 02:14 PM Time: 14:14 Nitroglycerin 100 mcg Intracoronary Given by Aydin Mckeon MD [email or web address] 02:15 PM HR=63 bpm, BNFC=965/82 mmhg, LhM6=086.0 %, Resp=17 B/min, EtCO2=40 mmHg, Comment=SB 02:16 PM Guide catheter removed intact. [email or web address] 02:19 PM Sheath exchanged for a 7 Fr 11 cm Cordis Ashanti sheath [id number] [email or web address] 02:20 PM Time: 14:20 Nitroglycerin 300 mcg Intraarterial Given by Vishnu Ordonez RN [email or web address] 02:20 PM HR=67 bpm, IXZZ=715/82 mmhg, PjK9=329.0 %, Resp=17 B/min, Comment=SB 02:20 PM Time: 14:20 Versed 0.5 mg Intravenous Given by Vishnu Ordonez RN [email or web address] 02:20 PM Time: 14:20 Fentanyl 25 mcg Intravenous Given by Vishnu Ordonez RN [email or web address] 02:25 PM Procedure completed at 14:25 09/26/2018 [email or web address] 02:25 PM Did you address TYREE flow and Dominance? Yes [email or web address] 02:25 PM Coronary Dominance: right [email or web address] 02:26 PM Sign out completed: Radiation Dose 3342.31 mGy, 328.55 Gy/cm2 Fluoro Time: 30.0 Isovue 370 - 200ml contrast 226 ml given by Ayse Mckeon MD. Complications: None. 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 Cardiac Rehab Consult needed: YesConfirmed administered medications: Yes [email or web address] 02:26 PM Isovue 370 - 200ml,2 Bottle(s) used. [email or web address] 02:26 PM Sheath left in place to be pulled on floor/holding areaV+Pad [email or web address] 02:26 PM Estimated Blood Loss: minimal [email or web address] 02:26 PM Post ECG Sinus Bradycardia [email or web address] 02:26 PM Post Blood Pressure 189/82 [email or web address] 02:26 PM Information taught Cardiac Cath and PCI [email or web address] 02:26 PM Education needs Procedure, Plan of Care, and Disease Process [email or web address] 02:27 PM Learning barriers :None [email or web address] 02:27 PM Education Methods Verbal [email or web address] 02:27 PM Education evaluation Able to repeat information [email or web address] 02:27 PM Site status No bleeding/hematoma - Rt Groin as reported by Shaquille Wright RT (R) at 14:27 [email or web address] 02:27 PM Opsite applied [email or web address] 02:27 PM Report given to Rikki HIGGINS Pt taken to Holding room Room #1. 14:27 [email or web address] 02:27 PM Delay to floor No [email or web address] 02:27 PM Patient out of room: 14:27 [email or web address] 02:28 PM Family placed in not available. [email or web address] 02:28 PM Complications: None [email or web address] Complications Complication None None Hemodynamics Pressures Site Systolic/A Wave Diastolic/V Wave Mean AO 136 80 105 AO 131 76 101 LV 163 14 17 LV 149 16 19 AO 153 25 78 AO 133 68 94 AO 162 78 111 Post Procedure Information Blood Pressure: 189/82 mmHg Rhythm: Sinus Bradycardia Post procedural instructions were given Site Checks Time Location Status Staff Sheath In? Note 02:27 PM Rt Groin No bleeding/hematoma Shaquille Wright RT (R) Pulses Time Site Pre-Procedure Post-Procedure Note 09/26/2018 1:07:00 PM Bilateral radial 2+ 09/26/2018 1:07:00 PM Bilateral DP & PT 1+ Updated by LOREN PooleR) on 09/26/2018 2:33:53 PM electronically signed on 09/26/2018 2:34:47 PM with status of Final
--- NOTE | 2018-09-26 16:54 | Electrocardiograph Report ---
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
--- NOTE | 2018-09-26 17:44 | Invasive Diagnostic Lab Proc ---
Name: Racheal Thornton Date of Study: 09/26/2018 Date: 1960 Ht: 64.2in Medical Record#: [id number] Age: 58 Wt: 240.30lb Gender: Female BSA: 2.12 Order #: [id number] BMI: 41.03 Physicians Procedure Physician: Ayse Mckeon MD Referring MD: Referring MD: Staff Name Position Time In Florence King RT (R) Monitor 01:02 PM Shaquille Wright RT (R) Scrub 01:02 PM Vishnu Ordonez RN Corporate Logistics Manager 01:02 PM Indications Indication Unstable Angina Procedures Performed Procedure L HRT ARTERY/VENTRICLE ANGIO PRQ CARD [place]A STENT W/ANGIO 1 VSL Pre-Procedure Checklist Informed consent is complete signed and on chart. H&P is on chart. ID band is on and ID verified with patient. Patient NPO for procedure The procedure was described for the patient and questions were answered. Blood Pressure: 159/87 ECG is on chart. Rhythm: Sinus Bradycardia Plan of Care Patient will tolerate the procedure without complications. Adequate level of comfort will be maintained. Hemodynamics will remain stable Patient will recover from procedure without complications. Respiratory function will be maintained. Cardiac rhythm will remain stable. Patient temperature will be maintained. Patient and/or family have verbalized understanding of the procedure. Patient Education Chief Complaint/Reason for Test: Cardiac Cath Developmental Category: Adult (18-64 years) Developmentally Appropriate for Age: Yes Learning Barriers: None Education Needs: Procedure Education Method: Verbal Information Taught: Cardiac Cath Educational Evaluation: Able to repeat information Intravenous Access Time IV Size Location DC'd Fluid/Drip Rate Units RN 01:06 PM 20g 1 09/26" Patent On Arrival Lt Arm 0.9NaCl 25 ml/hr Allergies No Known Allergies Vital Signs Time BP (mmHg) HR (bpm) O2 Sat. RR (bpm) LOC 01:06 PM 159 / 87 57 % 16 4 = Oriented but drowsy 01:35 PM 153 / 80 62 100 % 14 01:40 PM 156 / 83 62 100 % 0 01:45 PM 170 / 80 59 100 % 16 01:50 PM 161 / 75 57 100 % 15 01:55 PM 167 / 85 57 100 % 26 02:00 PM 172 / 88 60 100 % 10 02:05 PM 172 / 82 60 100 % 22 02:10 PM 180 / 87 58 100 % 20 02:15 PM 183 / 82 63 100 % 17 02:20 PM 189 / 82 67 100 % 17 01:00 PM 191 / 85 61 97 % 0 01:05 PM 159 / 87 59 99 % 18 01:10 PM 146 / 78 54 99 % 17 01:15 PM 156 / 90 59 100 % 18 01:20 PM 157 / 83 65 99 % 18 01:25 PM 164 / 79 64 100 % 17 01:30 PM 148 / 76 64 100 % 6 02:30 PM 157 / 67 57 % 16 5 = Fully awake and oriented or at pre-proc level 02:45 PM 146 / 70 55 97 % 16 5 = Fully awake and oriented or at pre-proc level 03:00 PM 156 / 82 56 97 % 18 5 = Fully awake and oriented or at pre-proc level 03:15 PM 153 / 76 57 96 % 16 5 = Fully awake and oriented or at pre-proc level 03:30 PM 141 / 76 64 95 % 18 5 = Fully awake and oriented or at pre-proc level 03:45 PM 157 / 77 56 97 % 16 5 = Fully awake and oriented or at pre-proc level 04:00 PM 150 / 76 57 97 % 16 5 = Fully awake and oriented or at pre-proc level 04:15 PM 157 / 83 56 97 % 18 5 = Fully awake and oriented or at pre-proc level 04:30 PM 150 / 69 63 98 % 16 5 = Fully awake and oriented or at pre-proc level 04:45 PM 146 / 73 59 97 % 16 5 = Fully awake and oriented or at pre-proc level 05:00 PM 165 / 91 60 97 % 16 5 = Fully awake and oriented or at pre-proc level 05:15 PM 153 / 69 62 97 % 16 5 = Fully awake and oriented or at pre-proc level Procedural Medications Time Medication Dose Units Method Given By 01:03 PM Oxygen 2 L/min nasal cannula Vishnu Ordonez RN 01:03 PM Versed 1 mg Intravenous Vishnu Ordonez RN 01:03 PM Fentanyl 50 mcg Intravenous Vishnu Ordonez RN 01:12 PM Lidocaine 2% 10 ml Subcutaneous Ayse Mckeon MD 01:27 PM Heparin 5000 units Intravenous Vishnu Ordonez RN 02:07 PM Aggrastat Bolus: 54 ml Intravenous Vishnu Ordonez RN 02:07 PM Aggrastat 12.5mg/250ml 19.5 ml Intravenous Vishnu Ordonez RN 02:14 PM Nitroglycerin 100 mcg Intracoronary Aydin Mckeon MD 02:20 PM Nitroglycerin 300 mcg Intraarterial Vishnu Ordonez RN 02:20 PM Versed 0.5 mg Intravenous Vishnu Ordonez RN 02:20 PM Fentanyl 25 mcg Intravenous Vishnu Ordonez RN 05:10 PM Aggrastat Crista Arcos RN ASA Classification: CLASS II- Mild systemic disease (i.e. well-controlled diabetes, hypertension, asthma, cigarette smoking) Yifan Score Preprocedure Postprocedure Activity 2- Moves 4 extremities sustained head lift Activity Circulation 2- SBP +/= 20 points of pre-anesthetic level Circulation Consciousness 2- Awake and alert oriented x 3 Consciousness O2 Saturation 2- Able to maintain O2 satruation of 92% on room air O2 Saturation Respiratory 2- Able to deep breathe and cough well Respiratory Total Score 10 Total Score Contrast Agent: Isovue Diagnostic Contrast: 226 ml Total Contrast: 226 ml Fluoro Dose: 329 mGy Activated Clotting Time Time Seconds to Clot 01:21 PM 146 02:18 PM 320 03:45 PM 204 04:35 PM 152 Procedure Log Time Note Enter By 12:59 PM Vitals capture started with the following parameters, Patient=Adult, Interval=5 min, Initial Hubacxja=881 mmHg, Deflation Rate=3 mmHg, Cuff placed on Right Arm 01:00 PM HR=61 bpm, NCJT=737/85 mmhg, SpO2=97.0 %, Resp=0 B/min, EtCO2=40 mmHg, Comment=SB 01:02 PM Recorded ECG: HR=56 Condition=Condition 1 01:02 PM Pt arrived to company laborer 1 at 13:02 cedwards 01:02 PM Florence King RT (R) Position: Monitor Time in: 13:02 cedwards 01:02 PM Shaquille Wright RT (R) Position: Scrub Time in: 13:02 cedwards 01:02 PM Vishnu Ordonez RN Position: Corporate Logistics Manager Time in: 13:02 cedwards 01:02 PM Patient charges- Angio tray pack, Navilyst 3mm J, Pulse Oximetry and ACIST tubing and transducer cedwards 01:02 PM Case Delayed No cedwards 01:03 PM Hair removed from procedure site in holding area using clippers. Bilateral groin prepped with Chloraprep by Florence King RT (R), then patient was draped. Skin intact. cedwards 01:03 PM Physician arrived 13:03 cedwards 01: PM Talib and idris completed ced:03 PM ASA Class CLASS II- Mild systemic disease (i.e. well-controlled diabetes, hypertension, asthma, cigarette smoking) cedwards 01:03 PM Sign in performed according to hospital policy. Informed consent was obtained. ced:03 PM Procedure start 13:03 ced: PM Time: 13:03 Oxygen on at 2 L/min per nasal cannula by Vishnu Ordonez RN ced: PM Time: 13:03 Versed 1 mg Intravenous Given by Vishnu Ordonez RN ced: PM Time: 13:03 Fentanyl 50 mcg Intravenous Given by Vishnu Ordonez RN cedwards 01:05 PM HR=59 bpm, QILT=234/87 mmhg, SpO2=99.0 %, Resp=18 B/min, EtCO2=42 mmHg, Comment=SB 01:06 PM Time: 13:05 Patient comfortable and pain free: Yes [email or web address] :06 PM Time: 13:06LOC: 4 = Oriented but drowsy [email or web address] 01:06 PM Pressure channel 1 zeroed. 01:10 PM HR=54 bpm, KLRW=205/78 mmhg, SpO2=99.0 %, Resp=17 B/min, EtCO2=42 mmHg, Comment=SB 01:12 PM Time out was performed according to hospital policy. Conscious sedation and anesthesia was achieved (see medication log with in this report above) [email or web address] 01:12 PM Time: 13:12 10 ml Lidocaine 2% to right groin Subcutaneous Given by Ayse Mckeon MD [email or web address] 01:13 PM Micro-Introducer Kit utilized for sheath placement [email or web address] 01:15 PM HR=59 bpm, IZZV=544/90 mmhg, AiK5=429.0 %, Resp=18 B/min, EtCO2=42 mmHg, Comment=SB 01:15 PM Access obtained by percutaneous puncture. 6Fr 10cm [place] sheath placed in right Femoral artery. [id number] [email or web address] 01:16 PM Bolus angiogram of right Femoral complete: 4 ml/sec for a total of 7 mls [email or web address] :16 PM 5Fr FR 4 catheter inserted over the wire DNC [email or web address] 01:16 PM 0.035 145cm Navilyst 3mmJ wire [id number] rubin 01:17 PM RCA angiography performed in multiple views. 01:17 PM Coronary Dominance: right mk 01:18 PM Catheter removed 01:18 PM 5Fr FL 4 catheter inserted over the wire [facility] grant 01:18 PM LCA angiography performed in multiple views. 01:20 PM Recorded Pressure: Ao, HR=63, Condition=Condition 1 (Aorta) Ao 136/80/105 01:20 PM HR=65 bpm, OTEF=587/83 mmhg, SpO2=99.0 %, Resp=18 B/min, EtCO2=40 mmHg 01:20 PM Recorded Pressure: Ao, HR=61, Condition=Condition 1 (Aorta) Ao 131/76/101 01:23 PM Catheter removed grant 01:23 PM Recorded Pressure: LV, HR=65, Condition=Condition 1 (Left Ventricle) LV 163/14/17 01:23 PM Recorded Pressure: LV, Ao, HR=67, Condition=Condition 1 (Left Ventricle) LV 149/16/19, (Aorta) Ao 153/25/78 01:24 PM 5Fr Pigtail catheter inserted over the wire [facility] grant:24 PM Catheter crossed the aortic valve and was selectively placed in the left ventricle. Pressures recorded on pullback for left heart catheterization. 01:24 PM Catheter removed rubin 01:24 PM 6Fr XB LAD 3.5 [place] Bright-Tip guide catheter was used to cannulate the PCI vessel successfully. reused? No 01:24 PM Inflation device was opened. 01:25 PM .014 [employer] [place] 190cm guide wire across target lesion- successful. reused? No 01:25 PM HR=64 bpm, GZBC=200/79 mmhg, TdS2=533.0 %, Resp=17 B/min, EtCO2=43 mmHg, Comment=SB 01:27 PM Time: 13:27 Heparin 5000 units Intravenous Given by Vishnu Ordonez RN [email or web address] 01:28 PM Asist FFR Catheter advanced to target lesion. [email or web address] 01:30 PM HR=64 bpm, XXYA=463/76 mmhg, NyS1=807.0 %, Resp=6 B/min, EtCO2=41 mmHg, Comment=SB 01:30 PM Recorded Pressure: Ao, HR=63, Condition=Condition 1 (Aorta) Ao 133/68/94 01:33 PM .014 [employer] [place] 190cm guide wire across target lesion- successful. reused? No [email or web address] 01:35 PM HR=62 bpm, CKZR=095/80 mmhg, ZsI0=967.0 %, Resp=14 B/min, EtCO2=41 mmHg, Comment=SB 01:40 PM HR=62 bpm, LUOR=600/83 mmhg, JcM5=998.0 %, Resp=0 B/min, EtCO2=41 mmHg, Comment=SB 01:40 PM Turnpike catheter insereted otw. [email or web address] 01:45 PM HR=59 bpm, PKKM=703/80 mmhg, ZhD8=251.0 %, Resp=16 B/min, EtCO2=41 mmHg, Comment=SB 01:48 PM Flow Wire/Catheter removed intact [email or web address] 01:48 PM Guide wires removed intact. [email or web address] 01:49 PM .014 [employer] 190cm guide wire across target lesion- successful. reused? No [email or web address] 01:50 PM HR=57 bpm, MUJM=926/75 mmhg, AzG1=177.0 %, Resp=15 B/min, EtCO2=42 mmHg, Comment=SB 01:55 PM HR=57 bpm, DOBH=241/85 mmhg, NbO1=934.0 %, Resp=26 B/min, EtCO2=41 mmHg, Comment=SB 01:57 PM Guide wire removed intact. [email or web address] 01:57 PM .014 [employer] [place] 190cm guide wire across target lesion- successful. reused? No [email or web address] 02:00 PM HR=60 bpm, VPTV=869/88 mmhg, MvO7=464.0 %, Resp=10 B/min, EtCO2=40 mmHg, Comment=SB 02:02 PM Guide wire removed intact. [email or web address] 02:02 PM .014 [employer] [place] 300cm guide wire across target lesion- successful. reused? No [email or web address] 02:03 PM Turnpike catheter removed [email or web address] 02:04 PM Recorded Pressure: Ao, HR=60, Condition=Condition 1 (Aorta) Ao 162/78/111 02:05 PM HR=60 bpm, VYAO=481/82 mmhg, QlI7=538.0 %, Resp=22 B/min, EtCO2=41 mmHg, Comment=SB 02:06 PM 2.0 mm x 12 mm Emerge Monorail balloon across target lesion- successful. reused? No [email or web address] 02:07 PM Time: 14:07 Aggrastat Bolus: 54.0 ml Intravenous Given by Vishnu Ordonez RN [place] pump [email or web address] 02:08 PM Time: 14:07 Aggrastat 12.5mg/250ml 19.5 ml Intravenous Given by Vishnu Ordonez RN [place] pump [email or web address] 02:08 PM Balloon inflated @ 6 carmen for 10 seconds [email or web address] 02:10 PM HR=58 bpm, YCKL=605/87 mmhg, QhR6=703.0 %, Resp=20 B/min, Comment=SB 02:11 PM Balloon catheter removed intact. [email or web address] 02:11 PM 3.0mm x 20mm Synergy drug-eluting stent across target lesion- successful Lot #[id number] [email or web address] 02:12 PM Stent deployed @ 9 carmen for 8 seconds [email or web address] 02:12 PM Stent balloon reinflated @ 14 carmen for 6 seconds [email or web address] 02:13 PM Stent delivery system removed intact. [email or web address] 02:13 PM Guide wire removed intact. [email or web address] 02:14 PM Time: 14:14 Nitroglycerin 100 mcg Intracoronary Given by Aydin Mckeon MD [email or web address] 02:15 PM HR=63 bpm, YXAL=766/82 mmhg, XzS9=248.0 %, Resp=17 B/min, EtCO2=40 mmHg, Comment=SB 02:16 PM Guide catheter removed intact. [email or web address] 02:19 PM Sheath exchanged for a 7 Fr 11 cm Cordis [place] sheath [id number] [email or web address] 02:20 PM Time: 14:20 Nitroglycerin 300 mcg Intraarterial Given by Vishnu Ordonez RN [email or web address] 02:20 PM HR=67 bpm, XAWE=321/82 mmhg, OrL5=074.0 %, Resp=17 B/min, Comment=SB 02:20 PM Time: 14:20 Versed 0.5 mg Intravenous Given by Vishnu Ordonez RN [email or web address] 02:20 PM Time: 14:20 Fentanyl 25 mcg Intravenous Given by Vishnu Ordonez RN [email or web address] 02:25 PM Procedure completed at 14:25 09/26/2018 [email or web address] 02:25 PM Did you address TYREE flow and Dominance? Yes [email or web address] 02:25 PM Coronary Dominance: right [email or web address] 02:26 PM Sign out completed: Radiation Dose 3342.31 mGy, 328.55 Gy/cm2 Fluoro Time: 30.0 Isovue 370 - 200ml contrast 226 ml given by Ayse Mckeon MD. Complications: None. The patient was discharged out of the laboratory veterinarian in stable condition. Cardiac Rehab Consult needed: YesConfirmed administered medications: Yes [email or web address] 02:26 PM Isovue 370 - 200ml,2 Bottle(s) used. [email or web address] 02:26 PM Sheath left in place to be pulled on floor/holding areaV+Pad [email or web address] 02:26 PM Estimated Blood Loss: minimal [email or web address] 02:26 PM Post ECG Sinus Bradycardia [email or web address] 02:26 PM Post Blood Pressure 189/82 [email or web address] 02:26 PM Information taught Cardiac Cath and PCI [email or web address] 02:26 PM Education needs Procedure, Plan of Care, and Disease Process [email or web address] 02:27 PM Learning barriers :None [email or web address] 02:27 PM Education Methods Verbal [email or web address] 02:27 PM Education evaluation Able to repeat information [email or web address] 02:27 PM Site status No bleeding/hematoma - Rt Groin as reported by Shaquille Wright RT (R) at 14:27 [email or web address] 02:27 PM Opsite applied [email or web address] 02:27 PM Report given to Rikki HIGGINS Pt taken to Holding room Room #1. 14:27 [email or web address] 02:27 PM Delay to floor No [email or web address] 02:27 PM Patient out of room: 14:27 [email or web address] 02:28 PM Family placed in not available. [email or web address] 02:28 PM Complications: None [email or web address] 04:24 PM Sasha HIGGINS at bedside to speak to patient regarding cardiac rehab. [email or web address] 04:45 PM Arterial sheath pulled using manual compression and V+ Pad for 15 minutes by Crista Vasquez RN [email or web address] 05:00 PM Arterial sheath pulled, 2x2 closure device used and was Successful S/N. [email or web address] 05:35 PM Complications: None [email or web address] 05:35 PM Report given to Coral HIGGINS Pt taken to Holding room Room #[id number]. 17:35 kwitte 05:35 PM Patient out of room: 17:35 kwitte Complications Complication None None None Hemodynamics Pressures Site Systolic/A Wave Diastolic/V Wave Mean AO 136 80 105 AO 131 76 101 LV 163 14 17 LV 149 16 19 AO 153 25 78 AO 133 68 94 AO 162 78 111 Post Procedure Information Blood Pressure: 189/82 mmHg Rhythm: Sinus Bradycardia Post procedural instructions were given Site Checks Time Location Status Staff Sheath In? Note 02:27 PM Rt Groin No bleeding/hematoma Shaquille Wright RT (R) Yes 02:35 PM Rt Groin No bleeding/ No Hematoma Rikki Dash RN Yes 02:45 PM Rt Groin No bleeding/ No Hematoma Rikki Dash RN Yes 03:00 PM Rt Groin No bleeding/ No Hematoma Rikki Dash RN Yes 03:15 PM Rt Groin No bleeding/ No Hematoma Rikki Dash RN Yes 03:30 PM Rt Groin No bleeding/ No Hematoma Rikki Dash RN Yes 03:45 PM Rt Groin No bleeding/ No Hematoma Rikki Dash RN 04:00 PM Rt Groin No bleeding/ No Hematoma Rikki Dash RN Yes 04:15 PM Rt Groin No bleeding/ No Hematoma Rikki Dash RN Yes 04:30 PM Rt Groin No bleeding/ No Hematoma Rikki Dash RN Yes 04:45 PM Rt Groin No bleeding/ No Hematoma Crista Vasquez RN sheath pulled 05:00 PM Rt Groin No bleeding/ No Hematoma Crista Vasquez RN 05:15 PM Rt Groin No bleeding/ No Hematoma Crista Vasquez RN Pulses Time Site Pre-Procedure Post-Procedure Note 09/26/2018 1:07:00 PM Bilateral radial 2+ 09/26/2018 1:07:00 PM Bilateral DP & PT 1+ 09/26/2018 2:30:00 PM Bilateral DP & PT 1+ 09/26/2018 3:00:00 PM Bilateral DP & PT 1+ 09/26/2018 4:15:00 PM Bilateral DP & PT 1+ 09/26/2018 4:30:00 PM Bilateral DP & PT + 09/26/2018 5:00:00 PM Bilateral DP & PT 1+ Updated by Rikki Dash RN on 09/26/2018 5:35:31 PM Rikki Dash RN electronically signed on 09/26/2018 5:36:01 PM with status of Final
--- NOTE | 2018-09-26 19:44 | Internal Med Progress Note ---
Hospitalist Progress Note - Encounter Date of Encounter: 09/26/18 Time of Encounter: 11:00 - Subjective Interval History: Cardiology consulted with for conditions for left heart catheterization today - Exam Vitals: Temp Pulse Resp BP Pulse Ox 98.1 F 62 16 121/76 93 09/26/18 18:45 09/26/18 18:45 09/26/18 18:45 09/26/18 18:45 09/26/18 18:45 Exam: Gen.: Nonacute distress, alert and oriented 3 ENT: Mucosal membranes moist Respiratory: Lungs are clear to auscultation bilaterally without any wheezing rhonchi or rales Cardiovascular: Normal S1 and S2 regular rate rhythm no murmurs rubs or gallops Abdomen: Soft, nontender and nondistended with positive bowel sounds Extremities: No lower extremity edema Skin: Normal color - Assessment and Plan (1) Chest pain Current Visit: Yes Status: Acute Assessment and Plan: Patient sent to the ER by assembly loader's office due to unstable angina Cardiology with recommendations for left heart catheterization today (2) CAD (coronary artery disease) Current Visit: Yes Status: Chronic Assessment and Plan: Patient with 4 stents placed in 11/2017 Patient had a recent left heart catheterization during her hospital stay on 08/04/18 with a 30-40% stenosis in mid LAD, 65% stenosis and first diagonal with patent stent, 50-60% stenosis in the mid circumflex and 20% stenosis in. right PDA in addition to 30% stenosis in RPAV. Medical management was recommended at that time an outpatient setting with nitrates, aspirin, statin, beta linda and Brilinta. Management for ACS rule out as above (3) Type II diabetes mellitus Current Visit: No Status: Chronic Assessment and Plan: Will cover with sliding scale insulin and hold oral diabetic medications (4) Mood disorder Current Visit: Yes Status: Acute Assessment and Plan: Continue home dose of SSRI (5) DVT prophylaxis Current Visit: No Status: Acute Assessment and Plan: Patient on heparin drip as above - Time Spent with Patient Total time spent is greater than 50% in coordination of care (as documented) at patient's floor/unit and/or counseling patient: Internal Medicine: Result - Labs CBC & Chem 7: 09/26/18 02:59 09/26/18 02:59 Labs: Short CBC 09/25/18 09/26/18 Range/Units 19:30 02:59 WBC 9.4 10.0 (4.3-11.1) K/mcL Hgb 10.2 L 9.8 L (11.5-15.4) g/dL Hct 31.6 L 30.5 L (35.3-44.9) % Plt Count 255 242 (140-400) K/mcL Neutrophils # 6.6 (1.6-8.9) K/mcL BMP 09/26/18 02:59 Sodium 138 Potassium 4.2 Chloride 107 Carbon Dioxide 25 BUN 24 H Creatinine 1.06 Glucose 254 H Calcium 8.8 Cardiac Enzymes 09/25/18 09/26/18 09/26/18 Range/Units 19:30 02:59 09:26 Troponin I < 0.03 < 0.03 < 0.03 (< 0.04) ng/mL Urine 09/25/18 Range/Units 20:50 Urine Color Yellow (Yellow) Urine Clarity Clear (Clear) Urine pH 5.5 (5.0-8.0) pH Units Ur Specific [place] 1.019 (1.010-1.025) Urine Protein Negative (Neg-Trace) mg/dL Urine Glucose (UA) Normal (Normal) mg/dL - ABG Interpretation ABG results: PT/INR, D-dimer PT 12.2 Seconds (9.4-12.1) H 09/25/18 19:30 D-Dimer 563 ng/mLFEU (0-500) H 09/25/18 16:28 Consult Discharge Plan - Plan Referrals: Hannah Queen MD [Primary Care Provider] - (1) Chest pain Qualifiers: Chest pain type: chest pain due to myocardial ischemia Ischemic chest pain type: unstable angina pectoris Qualified Code(s): I20.0 - Unstable angina (2) CAD (coronary artery disease) Qualifiers: Coronary Disease-Associated Artery/Lesion type: [place] artery Teller vs. transplanted heart: [place] heart Associated angina: with unstable angina Qualified Code(s): I25.110 - Atherosclerotic heart disease of [place] coronary artery with unstable angina pectoris (3) Type II diabetes mellitus Qualifiers: Diabetes mellitus long line teamster insulin use: without nursing home use Diabetes mellitus complication status: without complication Qualified Code(s): E11.9 - Type 2 diabetes mellitus without complications
[2018-09-27] MEDS ORDERED: Acetaminophen 325 MG TABLET PO ONE (00:20)
[2018-09-27] MEDS: Nitroglycerin 0.4 MG TAB.SUBL SL PRN ×4 (00:28→20:06)
[2018-09-27 07:45] LABS: eGFR For Non-African Americans 50 (> 60)
[2018-09-27] MEDS: Insulin LISPRO 300 UNITS/3 ML VIAL SQ SCH ×4 (08:06→21:42)
[2018-09-27] MEDS: Aspirin Enteric Coated 81 MG Tablet PO SCH (09:26)
[2018-09-27] MEDS: *HR* Ticagrelor 90 MG TABLET PO SCH (09:26)
[2018-09-27] MEDS: Isosorbide MONOnitrate (24 HR) 30 MG TAB.ER.24H PO SCH (09:26)
--- NOTE | 2018-09-27 10:21 | Cardiology Progress Note ---
Date of Encounter: 09/27/18 Time of Encounter: 10:20 Assessment and Plan (1) CAD (coronary artery disease) Current Visit: Yes Status: Chronic Per Cardiology: S/P LHC: Lesion Findings/Interventions * Left Main Coronary Artery The LMCA is angiographically free of disease. * Left Anterior Descending There is a 40% stenosis in the Mid LAD. There is a 65% stenosis in the 1st Diagonal. * Circumflex There is a 70% stenosis in the Mid Circumflex. The lesion has a TYREE flow of 3 and has no thrombus present. An intervention was performed on the Mid Circumflex with a final stenosis of 0%. There were no lesion complications. The final TYREE flow was 3. * Right Coronary Artery There is a 20% stenosis in the Right PDA. Kidney function stable. On aspirin, Brilinta, statin, JAMES inhibitor, long- acting nitrate. Complaint of discomfort this morning. ECG unchanged and comparable to baseline. We will add low-dose beta linda. We will titrate long-acting nitrate. Cardiology signing off, reconsult as needed, follow-up arranged. Discussed with Dr. Cervantes. Qualifiers: Coronary Disease-Associated Artery/Lesion type: [place] artery [place] vs. transplanted heart: [place] heart Associated angina: with unstable angina Qualified Code(s): I25.110 - Atherosclerotic heart disease of [place] coronary artery with unstable angina pectoris Discussion w patient/family: The assessment and plan as outlined above was discussed with the patient and/or family members who expressed understanding and agreement. All questions were answered. Thank you for involving us in the care of your patient. Please call with any questions. Subjective Principal diagnosis: CAD Interval history: Complaint of midsternal to left-sided chest discomfort about a 2/10 this morning. Received 2 nitroglycerin pills. Denies any other concerns or compla ints. Objective Vital Signs, Last 4 Hours Temp Pulse Resp BP Pulse Ox 09/27/18 07:36 98.2 F 60 16 138/78 95 General: Conversant, No Apparent Distress HEENT: Atraumatic, Normocephaly, Mucus Membranes Moist Neck: No JVD, Normal carotid pulses Cardiac: Reg Rate and Rhythm, Normal S1 and S2, No Murmur Lungs: Normal Breath Sounds, No Wheeze, Rales, Rhonchi Neuro: Alert and responsive, No focal deficits noted Abdomen: Soft, Non-Tender Skin: No rashes noted on visualized skin, Other (Right groin site dry and intact, no hematoma, no bleeding, no ecchymosis.) Musculoskeletal: No Chest Wall Tenderness Extremities: No Clubbing, No Cyanosis, No Edema, Normal Pulses Results 09/26/18 02:59 09/27/18 05:34 Lab Results 09/26/18 09/27/18 09:26 05:34 Creatinine 1.12 Troponin I < 0.03 Active Medications Aspirin (Aspirin Ec) 81 mg PO DAILY [facility] Stop: 03/28/19 09:01 Last Admin: 09/27/18 09:26 Dose: 81 mg Atorvastatin Calcium (Lipitor) 80 mg PO HS [facility] Stop: 03/27/19 21:01 Last Admin: 09/26/18 20:45 Dose: 80 mg Citalopram Hydrobromide (Celexa) 20 mg PO DAILY [facility] Stop: 03/28/19 09:01 Last Admin: 09/27/18 09:26 Dose: 20 mg Cyclobenzaprine HCl (Flexeril) 10 mg PO TID PRN PRN Reason: Pain Stop: 03/27/19 19:08 Dextrose/Water (Dextrose 50% (Syg)) 25 ml IVP AD PRN PRN Reason: Hypoglycemia Stop: 03/27/19 19:19 Docusate Sodium (Colace) 100 mg PO BID [facility]; Protocol Stop: 03/27/19 21:01 Last Admin: 09/27/18 09:26 Dose: 100 mg Glucagon (Glucagen) 1 mg IM ONCE PRN PRN Reason: Hypoglycemia Stop: 03/27/19 19:19 Glucose (Gluctose) 15 gm PO ONCE PRN PRN Reason: Hypoglycemia Stop: 03/27/19 19:19 Glucose (Gluctose) 30 gm PO ONCE PRN PRN Reason: Hypoglycemia Stop: 03/27/19 19:19 Dextrose (Dextrose 5%) 1,000 mls @ 100 mls/hr IVC .Q10H PRN PRN Reason: HYPOGLYCEMIA Stop: 03/27/19 19:19 Insulin Human Lispro (Humalog) 0 units SQ TIDAC [facility]; Protocol Stop: 03/28/19 07:31 Last Admin: 09/27/18 08:06 Dose: Not Given Insulin Human Lispro (Humalog) 0 units SQ [facility]; Protocol Stop: 03/27/19 21:01 Last Admin: 09/26/18 20:45 Dose: Not Given Isosorbide Mononitrate (Imdur) 90 mg PO DAILY [facility] Stop: 03/28/19 09:01 Last Admin: 09/27/18 09:26 Dose: 90 mg Lisinopril (Zestril) 5 mg PO DAILY [facility]; Protocol Stop: 03/28/19 09:01 Last Admin: 09/27/18 09:26 Dose: 5 mg Naloxone HCl (Narcan) 0.4 mg IVP Q2MIN PRN PRN Reason: SEE COMMENTS Stop: 03/27/19 19:13 Nitroglycerin (Nitroglycerin) 0.4 mg SL Q5MIN PRN PRN Reason: Chest Pain Stop: 03/27/19 19:08 Last Admin: 09/27/18 09:35 Dose: 0.4 mg Ticagrelor (Brilinta) 90 mg PO DAILY [facility] Stop: 03/28/19 09:01 Last Admin: 09/27/18 09:26 Dose: 90 mg Trazodone HCl (Trazodone) 50 mg PO HS PRN PRN Reason: Sleep Stop: 03/27/19 19:08 Last Admin: 09/27/18 00:38 Dose: 50 mg - Imaging and Cardiology Cardiac cath: report reviewed - EKG Interpretation EKG results cardiology: other (Sinus rhythm on telemetry) Consult Discharge Plan - Plan Referrals: Hannah Queen MD [Primary Care Provider] -
[2018-09-27] MEDS ORDERED: Isosorbide MONOnitrate (24 HR) 30 MG TAB.ER.24H PO ONE (15:24)
--- NOTE | 2018-09-27 19:33 | Internal Med Progress Note ---
Hospitalist Progress Note - Encounter Date of Encounter: 09/27/18 Time of Encounter: 11:00 - Subjective Interval History: Patient status post PTCA/CAROLA placement in the mid circumflex on 09/26/18 Patient however this morning continues to complain of chest pressure; cardiology was notified and appreciate recommendations - Exam Vitals: Temp Pulse Resp BP Pulse Ox 97.9 F 64 16 112/71 96 09/27/18 10:27 09/27/18 10:27 09/27/18 10:27 09/27/18 10:27 09/27/18 10:27 Exam: Gen.: Nonacute distress, alert and oriented 3 ENT: Mucosal membranes moist Respiratory: Lungs are clear to auscultation bilaterally without any wheezing rhonchi or rales Cardiovascular: Normal S1 and S2 regular rate rhythm no murmurs rubs or gallops Abdomen: Soft, nontender and nondistended with positive bowel sounds Extremities: No lower extremity edema Skin: Normal color - Assessment and Plan (1) Chest pain Current Visit: Yes Status: Acute Assessment and Plan: Patient sent to the ER by physician office secretary's office due to unstable angina Patient status post PTCA/CAROLA placement in the mid circumflex on 09/26/18 Patient however this morning continues to complain of chest pressure Cardiology was notified and appreciate recommendations (2) CAD (coronary artery disease) Current Visit: Yes Status: Chronic Assessment and Plan: Patient with 4 stents placed in 11/2017 Patient had a recent left heart catheterization during her hospital stay on 08/04/18 with a 30-40% stenosis in mid LAD, 65% stenosis and first diagonal with patent stent, 50-60% stenosis in the mid circumflex and 20% stenosis in. right PDA in addition to 30% stenosis in RPAV. Left Heart catheterization as above Medical management was recommended at that time an outpatient setting with nitrates, aspirin, statin, beta linda and Brilinta. Patient with continued chest pain this morning and cardiology notified for further recommendations (3) Type II diabetes mellitus Current Visit: No Status: Chronic Assessment and Plan: Will cover with sliding scale insulin and hold oral diabetic medications (4) Mood disorder Current Visit: Yes Status: Acute Assessment and Plan: Continue home dose of SSRI DVT Prophylaxis: Heparin subcutaneous - Time Spent with Patient Total time spent is greater than 50% in coordination of care (as documented) at patient's floor/unit and/or counseling patient: Internal Medicine: Result - Labs CBC & Chem 7: 09/26/18 02:59 09/27/18 05:34 Labs: BMP 09/27/18 05:34 Creatinine 1.12 Cardiac Enzymes 09/27/18 Range/Units 16:01 Troponin I 0.06 H* (< 0.04) ng/mL - ABG Interpretation ABG results: PT/INR, D-dimer PT 12.2 Seconds (9.4-12.1) H 09/25/18 19:30 D-Dimer 563 ng/mLFEU (0-500) H 09/25/18 16:28 Consult Discharge Plan - Plan Referrals: Hannah Queen MD [Primary Care Provider] - _ (1) Chest pain Qualifiers: Chest pain type: chest pain due to myocardial ischemia Ischemic chest pain type: unstable angina pectoris Qualified Code(s): I20.0 - Unstable angina (2) CAD (coronary artery disease) Qualifiers: Coronary Disease-Associated Artery/Lesion type: [place] artery [place] vs. transplanted heart: [place] heart Associated angina: with unstable angina Qualified Code(s): I25.110 - Atherosclerotic heart disease of [place] coronary artery with unstable angina pectoris (3) Type II diabetes mellitus Qualifiers: Diabetes mellitus shelter insulin use: without shelter use Diabetes mellitus complication status: without complication Qualified Code(s): E11.9 - Type 2 diabetes mellitus without complications
[2018-09-27] MEDS: *HR* Heparin 5,000 UNIT/ML VIAL SQ SCH (21:38)
[2018-09-27] MEDS ORDERED: *HR* Morphine 2 MG/ML SYRINGE IVP ONE (23:08)
[2018-09-28] MEDS: *HR* Heparin 5,000 UNIT/ML VIAL SQ SCH ×3 (05:23→21:08)
[2018-09-28] MEDS: Aspirin Enteric Coated 81 MG Tablet PO SCH (09:12)
[2018-09-28] MEDS: Isosorbide MONOnitrate (24 HR) 30 MG TAB.ER.24H PO SCH (09:12)
[2018-09-28] MEDS: Insulin LISPRO 300 UNITS/3 ML VIAL SQ SCH ×4 (09:12→21:07)
[2018-09-28] MEDS: *HR* Ticagrelor 90 MG TABLET PO SCH (09:13)
--- NOTE | 2018-09-28 09:57 | Internal Med Progress Note ---
Hospitalist Progress Note - Encounter Date of Encounter: 09/28/18 Time of Encounter: 11:00 - Subjective Interval History: Patient who presented due to chest pain found to have severe 1 vessel disease on left heart catheterization status post PTCA/CAROLA placement in the mid circumflex on 09/26/18 Patient however continues to complain of chest pressure even after increasing Imdur dose - Exam Vitals: Temp Pulse Resp BP Pulse Ox 98.1 F 67 16 119/75 97 09/28/18 07:49 09/28/18 07:49 09/28/18 07:49 09/28/18 07:49 09/28/18 07:49 Exam: Gen.: Nonacute distress, alert and oriented 3 ENT: Mucosal membranes moist Respiratory: Lungs are clear to auscultation bilaterally without any wheezing rhonchi or rales Cardiovascular: Normal S1 and S2 regular rate rhythm no murmurs rubs or gallops Abdomen: Soft, nontender and nondistended with positive bowel sounds Extremities: No lower extremity edema Skin: Normal color - Assessment and Plan (1) Chest pain Current Visit: Yes Status: Acute Assessment and Plan: Patient sent to the ER by dining room attendant cafeteria's office due to unstable angina She was found to have severe 1 vessel disease on left heart catheterization Patient status post PTCA/CAROLA placement in the mid circumflex on 09/26/18 Patient however continues to complain of chest pressure even after increasing Imdur dose Cardiology with recommendations for repeat left heart catheterization on 09/29/18 (2) CAD (coronary artery disease) Current Visit: Yes Status: Chronic Assessment and Plan: Patient with 4 stents placed in 11/2017 Patient had a recent left heart catheterization during her hospital stay on 08/04/18 with a 30-40% stenosis in mid LAD, 65% stenosis and first diagonal with patent stent, 50-60% stenosis in the mid circumflex and 20% stenosis in. right PDA in addition to 30% stenosis in RPAV. Left Heart catheterization as above Medical management was recommended at that time an outpatient setting with nitrates, aspirin, statin, beta linda and Brilinta. Patient with continued chest pain this morning and cardiology notified for further recommendations (3) Type II diabetes mellitus Current Visit: No Status: Chronic Assessment and Plan: Will cover with sliding scale insulin and hold oral diabetic medications (4) Mood disorder Current Visit: Yes Status: Acute Assessment and Plan: Continue home dose of SSRI DVT Prophylaxis: Heparin subcutaneous - Time Spent with Patient Total time spent is greater than 50% in coordination of care (as documented) at patient's floor/unit and/or counseling patient: Internal Medicine: Result - Labs CBC & Chem 7: 09/28/18 11:00 09/28/18 11:00 Labs: Cardiac Enzymes 09/27/18 09/27/18 09/28/18 Range/Units 16:01 21:45 03:59 Troponin I 0.06 H* 0.07 H* 0.06 H* (< 0.04) ng/mL - ABG Interpretation ABG results: PT/INR, D-dimer PT 12.2 Seconds (9.4-12.1) H 09/25/18 19:30 D-Dimer 563 ng/mLFEU (0-500) H 09/25/18 16:28 Consult Discharge Plan - Plan Referrals: Hannah Queen MD [Primary Care Provider] - (1) Chest pain Qualifiers: Chest pain type: chest pain due to myocardial ischemia Ischemic chest pain type: unstable angina pectoris Qualified Code(s): I20.0 - Unstable angina (2) CAD (coronary artery disease) Qualifiers: Coronary Disease-Associated Artery/Lesion type: [place] artery [place] vs. transplanted heart: [place] heart Associated angina: with unstable angina Qualified Code(s): I25.110 - Atherosclerotic heart disease of [place] coronary artery with unstable angina pectoris (3) Type II diabetes mellitus Qualifiers: Diabetes mellitus senior living insulin use: without senior living use Diabetes mellitus complication status: without complication Qualified Code(s): E11.9 - Type 2 diabetes mellitus without complications
[2018-09-28] MEDS: Nitroglycerin 0.4 MG TAB.SUBL SL PRN ×2 (10:14→22:57)
--- NOTE | 2018-09-28 10:34 | Cardiology Progress Note ---
Date of Encounter: 09/28/18 Time of Encounter: 10:30 Assessment and Plan (1) Chest pain Current Visit: Yes Status: Acute Per Cardiology: Patient continues to experience chest pain symptoms. Patient reports minimal relief with increased long-acting nitrate and SL nitroglycerin pills. Reports some relief with IV morphine. ECG at baseline. Will add Ranexa. Cath film reviewed by Dr. Cervantes, will eval in am potential need for repeat LHC. Patient verbalized understanding and agreed with plan. Qualifiers: Chest pain type: chest pain due to myocardial ischemia Ischemic chest pain type: unstable angina pectoris Qualified Code(s): I20.0 - Unstable angina (2) CAD (coronary artery disease) Current Visit: Yes Status: Chronic Per Cardiology: S/P LHC: Lesion Findings/Interventions * Left Main Coronary Artery The LMCA is angiographically free of disease. * Left Anterior Descending There is a 40% stenosis in the Mid LAD. There is a 65% stenosis in the 1st Diagonal. * Circumflex There is a 70% stenosis in the Mid Circumflex. The lesion has a TYREE flow of 3 and has no thrombus present. An intervention was performed on the Mid Circumflex with a final stenosis of 0%. There were no lesion complications. The final TYREE flow was 3. * Right Coronary Artery There is a 20% stenosis in the Right PDA. Kidney function stable. On aspirin, Brilinta, statin, JAMES inhibitor, long-acting nitrate. Qualifiers: Coronary Disease-Associated Artery/Lesion type: [place] artery [place] vs. transplanted heart: [place] heart Associated angina: with unstable angina Qualified Code(s): I25.110 - Atherosclerotic heart disease of [place] coronary artery with unstable angina pectoris Discussion w patient/family: The assessment and plan as outlined above was discussed with the patient and/or family members who expressed understanding and agreement. All questions were answered. Thank you for involving us in the care of your patient. Please call with any questions. Subjective Principal diagnosis: CAD Interval history: Patient continues to experience midsternal to left-sided chest pressure/heaviness symptoms. She reports minimal relief with increased long- acting nitrate and supplemental nitroglycerin pills. Reports some relief after receiving IV Morphine. Objective Vital Signs, Last 4 Hours Temp Pulse Resp BP Pulse Ox 09/28/18 07:49 98.1 F 67 16 119/75 97 General: Conversant, No Apparent Distress HEENT: Atraumatic, Normocephaly, Mucus Membranes Moist Neck: No JVD, Normal carotid pulses Cardiac: Reg Rate and Rhythm, Normal S1 and S2, No Murmur Lungs: Normal Breath Sounds, No Wheeze, Rales, Rhonchi Neuro: Alert and responsive, No focal deficits noted Abdomen: Soft, Non-Tender Skin: No rashes noted on visualized skin Musculoskeletal: No Chest Wall Tenderness Extremities: No Clubbing, No Cyanosis, No Edema, Normal Pulses Results 09/26/18 02:59 09/27/18 05:34 Lab Results 09/27/18 09/27/18 09/28/18 16:01 21:45 03:59 Troponin I 0.06 H* 0.07 H* 0.06 H* Active Medications Aspirin (Aspirin Ec) 81 mg PO DAILY [facility] Stop: 03/28/19 09:01 Last Admin: 09/28/18 09:12 Dose: 81 mg Atorvastatin Calcium (Lipitor) 80 mg PO HS [facility] Stop: 03/27/19 21:01 Last Admin: 09/27/18 21:38 Dose: 80 mg Citalopram Hydrobromide (Celexa) 20 mg PO DAILY [facility] Stop: 03/28/19 09:01 Last Admin: 09/28/18 09:13 Dose: 20 mg Cyclobenzaprine HCl (Flexeril) 10 mg PO TID PRN PRN Reason: Pain Stop: 03/27/19 19:08 Last Admin: 09/28/18 09:13 Dose: 10 mg Dextrose/Water (Dextrose 50% (Syg)) 25 ml IVP AD PRN PRN Reason: Hypoglycemia Stop: 03/27/19 19:19 Docusate Sodium (Colace) 100 mg PO BID [facility]; Protocol Stop: 03/27/19 21:01 Last Admin: 09/28/18 09:13 Dose: 100 mg Glucagon (Glucagen) 1 mg IM ONCE PRN PRN Reason: Hypoglycemia Stop: 03/27/19 19:19 Glucose (Gluctose) 15 gm PO ONCE PRN PRN Reason: Hypoglycemia Stop: 03/27/19 19:19 Glucose (Gluctose) 30 gm PO ONCE PRN PRN Reason: Hypoglycemia Stop: 03/27/19 19:19 Heparin Sodium (Porcine) (Heparin) 5,000 unit SQ Q8HCO [facility] Stop: 03/29/19 22:01 Last Admin: 09/28/18 05:23 Dose: 5,000 unit Dextrose (Dextrose 5%) 1,000 mls @ 100 mls/hr IVC .Q10H PRN PRN Reason: HYPOGLYCEMIA Stop: 03/27/19 19:19 Insulin Human Lispro (Humalog) 0 units SQ TIDAC [facility]; Protocol Stop: 03/28/19 07:31 Last Admin: 09/28/18 09:12 Dose: Not Given Insulin Human Lispro (Humalog) 0 units SQ HS [facility]; Protocol Stop: 03/27/19 21:01 Last Admin: 09/27/18 21:42 Dose: Not Given Isosorbide Mononitrate (Imdur) 120 mg PO DAILY [facility] Stop: 03/30/19 09:01 Last Admin: 09/28/18 09:12 Dose: 120 mg Lisinopril (Zestril) 5 mg PO DAILY [facility]; Protocol Stop: 03/28/19 09:01 Last Admin: 09/28/18 09:13 Dose: 5 mg Metoprolol Tartrate (Lopressor) 12.5 mg PO BID [facility] Stop: 03/29/19 10:31 Last Admin: 09/28/18 09:13 Dose: 12.5 mg Naloxone HCl (Narcan) 0.4 mg IVP Q2MIN PRN PRN Reason: SEE COMMENTS Stop: 03/27/19 19:13 Nitroglycerin (Nitroglycerin) 0.4 mg SL Q5MIN PRN PRN Reason: Chest Pain Stop: 03/27/19 19:08 Last Admin: 09/28/18 10:14 Dose: 0.4 mg Ranolazine (Ranexa) 500 mg PO BID [facility] Stop: 03/30/19 10:31 Ticagrelor (Brilinta) 90 mg PO DAILY [facility] Stop: 03/28/19 09:01 Last Admin: 09/28/18 09:13 Dose: 90 mg Trazodone HCl (Trazodone) 50 mg PO HS PRN PRN Reason: Sleep Stop: 03/27/19 19:08 Last Admin: 09/27/18 00:38 Dose: 50 mg Consult Discharge Plan - Plan Referrals: Hannah Queen MD [Primary Care Provider] -
[2018-09-28] MEDS: Ranolazine 500 MG TAB.ER.12H PO SCH ×2 (11:18→21:06)
[2018-09-28 11:27] LABS: Basophils # 0.1 K/mcL (0.0-0.2); Basophils % 0.8 %; Eosinophils # 0.5 K/mcL (0.0-0.6); Eosinophils % 6.1 %; Hematocrit 30.7 % (35.3-44.9); Hemoglobin 9.6 g/dL (11.5-15.4); Immature Granulocytes % 0.3 % (0-4); Lymphocytes # 1.5 K/mcL (0.6-4.6); Lymphocytes % 19.2 %; Mean Corpuscular HGB Conc 31.3 g/dL (31.6-35.5); Mean Corpuscular Hemoglobin 28.7 pg (28.0-33.3); Mean Corpuscular Volume 91.6 fL (83.0-100.0); Mean Platelet Volume 11.2 fL (9.4-12.4); Monocytes # 0.7 K/mcL (0.0-1.3); Neutrophils # 4.9 K/mcL (1.6-8.9); Platelet Count 237 K/mcL (140-400); Red Blood Count 3.35 M/mcL (3.82-4.97); Red Cell Distribution Width 14.3 % (11.5-14.5); Segmented Neutrophils % 64.6 %
[2018-09-28 11:50] LABS: BUN/Creatinine Ratio 21 (6-26); Blood Urea Nitrogen 21 mg/dL (6-20); Calcium 9.1 mg/dL (8.6-10.3); Carbon Dioxide 24 mEq/L (23-29); Chloride 107 mEq/L (98-107); Glucose 115 mg/dL (70-105); Osmolality,Calculated 290 (280-300); Potassium 4.3 mEq/L (3.5-5.1); Sodium 138 mEq/L (136-145); eGFR For Non-African Americans 58 (> 60)
[2018-09-28] MEDS ORDERED: *HR* Morphine 2 MG/ML SYRINGE IVP PRN (23:31)
[2018-09-29 04:39] LABS: Calcium 9.3 mg/dL (8.6-10.3); Potassium 4.3 mEq/L (3.5-5.1)
[2018-09-29] MEDS: *HR* Heparin 5,000 UNIT/ML VIAL SQ SCH ×3 (05:09→23:14)
--- NOTE | 2018-09-29 08:05 | Electrocardiograph Report ---
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
[2018-09-29] MEDS: Insulin LISPRO 300 UNITS/3 ML VIAL SQ SCH ×4 (08:11→23:16)
[2018-09-29] MEDS: *HR* Ticagrelor 90 MG TABLET PO SCH (08:22)
[2018-09-29] MEDS: Isosorbide MONOnitrate (24 HR) 30 MG TAB.ER.24H PO SCH (08:22)
[2018-09-29] MEDS: Ranolazine 500 MG TAB.ER.12H PO SCH ×2 (08:22→23:11)
[2018-09-29] MEDS: Aspirin Enteric Coated 81 MG Tablet PO SCH (08:22)
--- NOTE | 2018-09-29 09:38 | Cardiology Progress Note ---
Addendum entered and electronically signed by Chente Luis MD 09/29/18 16:28: I have personally performed a face to face evaluation on this patient. I have reviewed and agree with the documented findings and care plan as documented by the FOOT ORTHOPEDIST. History and Exam by me shows: Patient with history of CAD with recent PCI to the left circumflex. She has residual disease in first diagonal of the LAD. I agree with stress test, and possible revascularization if ischemia is found. Optimize anti-ischemic regimen. Thanks, Chente Luis MD Addendum entered and electronically signed by James Denis [facility] 09/29/18 09:54: Discussed again with Dr. Mckeon, recommendations for an exercise nuclear stress test. Original Note: Date of Encounter: 09/29/18 Time of Encounter: 09:30 Assessment and Plan (1) Chest pain Current Visit: Yes Status: Acute Per Cardiology: Patient continues to experience chest pain symptoms with minimal improvement with titration of long-acting nitrate and addition of Ranexa. Reports symptoms worse with exertion and relieved with rest. Currently chest pain 9 out of 10. ECG showed no changes from baseline. Again had troponins of 0.06, 0.07 and 0.06 after stenting. Discussed and reviewed with Dr. Mckeon and Dr. Luis, evaluating potential stress test versus left heart catheterization. Further recommendation pending. Patient agreeable to further testing. Qualifiers: Chest pain type: chest pain due to myocardial ischemia Ischemic chest pain type: unstable angina pectoris Qualified Code(s): I20.0 - Unstable angina (2) CAD (coronary artery disease) Current Visit: Yes Status: Chronic Per Cardiology: S/P LHC: Lesion Findings/Interventions * Left Main Coronary Artery The LMCA is angiographically free of disease. * Left Anterior Descending There is a 40% stenosis in the Mid LAD. There is a 65% stenosis in the 1st Diagonal. * Circumflex There is a 70% stenosis in the Mid Circumflex. The lesion has a TYREE flow of 3 and has no thrombus present. An intervention was performed on the Mid Circumflex with a final stenosis of 0%. There were no lesion complications. The final TYREE flow was 3. * Right Coronary Artery There is a 20% stenosis in the Right PDA. Kidney function stable. On aspirin, Brilinta, statin, JAMES inhibitor, long- acting nitrate, and Ranexa. Qualifiers: Coronary Disease-Associated Artery/Lesion type: [place] artery [place] vs. transplanted heart: [place] heart Associated angina: with unstable angina Qualified Code(s): I25.110 - Atherosclerotic heart disease of [place] coronary artery with unstable angina pectoris Discussion w patient/family: The assessment and plan as outlined above was discussed with the patient and/or family members who expressed understanding and agreement. All questions were answered. Thank you for involving us in the care of your patient. Please call with any questions. Subjective Principal diagnosis: CAD Interval history: Patient continues to experience intermittent midsternal chest heaviness. She reports symptoms worse with exertion and improved with rest. Currently experiencing chest pain 9 out of 10. Reports relieved with IV morphine. Indicates no improvement with increased dose of long-acting nitrate or addition of Ranexa. Objective Vital Signs, Last 4 Hours Temp Pulse Resp BP Pulse Ox 09/29/18 06:23 97.7 F 92 17 122/71 91 General: Conversant, No Apparent Distress HEENT: Atraumatic, Normocephaly, Mucus Membranes Moist Neck: No JVD, Normal carotid pulses Cardiac: Reg Rate and Rhythm, Normal S1 and S2, No Murmur Lungs: Normal Breath Sounds, No Wheeze, Rales, Rhonchi Neuro: Alert and responsive, No focal deficits noted Abdomen: Soft, Non-Tender Skin: No rashes noted on visualized skin Musculoskeletal: No Chest Wall Tenderness Extremities: No Clubbing, No Cyanosis, No Edema, Normal Pulses Results 09/28/18 11:00 09/29/18 03:46 Lab Results 09/28/18 09/28/18 09/29/18 11:00 11:00 03:46 WBC 7.5 Hgb 9.6 L Hct 30.7 L Plt Count 237 Sodium 138 136 Potassium 4.3 4.3 Chloride 107 104 Carbon Dioxide 24 25 BUN 21 H 27 H Creatinine 0.98 1.20 Glucose 115 H 126 H Calcium 9.1 9.3 Active Medications Aspirin (Aspirin Ec) 81 mg PO DAILY [facility] Stop: 03/28/19 09:01 Last Admin: 09/29/18 08:22 Dose: 81 mg Atorvastatin Calcium (Lipitor) 80 mg PO HS [facility] Stop: 03/27/19 21:01 Last Admin: 09/28/18 21:07 Dose: 80 mg Citalopram Hydrobromide (Celexa) 20 mg PO DAILY [facility] Stop: 03/28/19 09:01 Last Admin: 09/29/18 08:23 Dose: 20 mg Cyclobenzaprine HCl (Flexeril) 10 mg PO TID PRN PRN Reason: Pain Stop: 03/27/19 19:08 Last Admin: 09/28/18 09:13 Dose: 10 mg Dextrose/Water (Dextrose 50% (Syg)) 25 ml IVP AD PRN PRN Reason: Hypoglycemia Stop: 03/27/19 19:19 Docusate Sodium (Colace) 100 mg PO BID [facility]; Protocol Stop: 03/27/19 21:01 Last Admin: 09/29/18 08:22 Dose: 100 mg Glucagon (Glucagen) 1 mg IM ONCE PRN PRN Reason: Hypoglycemia Stop: 03/27/19 19:19 Glucose (Gluctose) 15 gm PO ONCE PRN PRN Reason: Hypoglycemia Stop: 03/27/19 19:19 Glucose (Gluctose) 30 gm PO ONCE PRN PRN Reason: Hypoglycemia Stop: 03/27/19 19:19 Heparin Sodium (Porcine) (Heparin) 5,000 unit SQ Q8HCO [facility] Stop: 03/29/19 22:01 Last Admin: 09/29/18 05:09 Dose: Not Given Dextrose (Dextrose 5%) 1,000 mls @ 100 mls/hr IVC .Q10H PRN PRN Reason: HYPOGLYCEMIA Stop: 03/27/19 19:19 Insulin Human Lispro (Humalog) 0 units SQ TIDAC [facility]; Protocol Stop: 03/28/19 07:31 Last Admin: 09/29/18 08:11 Dose: Not Given Insulin Human Lispro (Humalog) 0 units SQ HS [facility]; Protocol Stop: 03/27/19 21:01 Last Admin: 09/28/18 21:07 Dose: Not Given Isosorbide Mononitrate (Imdur) 120 mg PO DAILY [facility] Stop: 03/30/19 09:01 Last Admin: 09/29/18 08:22 Dose: 120 mg Lisinopril (Zestril) 5 mg PO DAILY [facility]; Protocol Stop: 03/28/19 09:01 Last Admin: 09/29/18 08:22 Dose: 5 mg Metoprolol Tartrate (Lopressor) 12.5 mg PO BID [facility] Stop: 03/29/19 10:31 Last Admin: 09/29/18 08:23 Dose: 12.5 mg Naloxone HCl (Narcan) 0.4 mg IVP Q2MIN PRN PRN Reason: SEE COMMENTS Stop: 03/27/19 19:13 Nitroglycerin (Nitroglycerin) 0.4 mg SL Q5MIN PRN PRN Reason: Chest Pain Stop: 03/27/19 19:08 Last Admin: 09/28/18 22:57 Dose: 0.4 mg Ranolazine (Ranexa) 500 mg PO BID [facility] Stop: 03/30/19 10:31 Last Admin: 09/29/18 08:22 Dose: 500 mg Ticagrelor (Brilinta) 90 mg PO DAILY [facility] Stop: 03/28/19 09:01 Last Admin: 09/29/18 08:22 Dose: 90 mg Trazodone HCl (Trazodone) 50 mg PO HS PRN PRN Reason: Sleep Stop: 03/27/19 19:08 Last Admin: 09/27/18 00:38 Dose: 50 mg - Imaging and Cardiology Cardiac cath: report reviewed Consult Discharge Plan - Plan Referrals: Hannah Queen MD [Primary Care Provider] -
--- NOTE | 2018-09-29 10:16 | Internal Med Progress Note ---
Hospitalist Progress Note - Encounter Date of Encounter: 09/29/18 Time of Encounter: 11:00 - Subjective Interval History: Patient who presented due to chest pain found to have severe 1 vessel disease on left heart catheterization status post PTCA/CAROLA placement in the mid circumflex on 09/26/18 Patient however continues to complain of chest pressure even after increasing Imdur dose and the addition of Ranexa Cardiology following with recommendations for nuclear medicine stress test versus left heart catheterization for further evaluation - Exam Vitals: Temp Pulse Resp BP Pulse Ox 97.7 F 92 17 122/71 91 09/29/18 06:23 09/29/18 06:23 09/29/18 06:23 09/29/18 06:23 09/29/18 06:23 Exam: Gen.: Nonacute distress, alert and oriented 3 ENT: Mucosal membranes moist Respiratory: Lungs are clear to auscultation bilaterally without any wheezing rhonchi or rales Cardiovascular: Normal S1 and S2 regular rate rhythm no murmurs rubs or gallops Abdomen: Soft, nontender and nondistended with positive bowel sounds Extremities: No lower extremity edema Skin: Normal color - Assessment and Plan (1) Chest pain Current Visit: Yes Status: Acute Assessment and Plan: Patient sent to the ER by jig mill operator's office due to unstable angina She was found to have severe 1 vessel disease on left heart catheterization Patient status post PTCA/CAROLA placement in the mid circumflex on 09/26/18 Patient however continues to complain of chest pressure even after increasing Imdur dose and the addition of Ranexa Cardiology following with recommendations for nuclear medicine stress test versus left heart catheterization for further evaluation (2) CAD (coronary artery disease) Current Visit: Yes Status: Chronic Assessment and Plan: Patient with 4 stents placed in 11/2017 Patient had a recent left heart catheterization during her hospital stay on 08/04/18 with a 30-40% stenosis in mid LAD, 65% stenosis and first diagonal with patent stent, 50-60% stenosis in the mid circumflex and 20% stenosis in. right PDA in addition to 30% stenosis in RPAV. Left Heart catheterization as above Medical management was recommended at that time an outpatient setting with nitrates, aspirin, statin, beta linda and Brilinta. Patient with continued chest pain this morning and cardiology notified for further recommendations (3) Type II diabetes mellitus Current Visit: No Status: Chronic Assessment and Plan: Will cover with sliding scale insulin and hold oral diabetic medications (4) Mood disorder Current Visit: Yes Status: Acute Assessment and Plan: Continue home dose of SSRI DVT Prophylaxis: Heparin subcutaneous - Time Spent with Patient Total time spent is greater than 50% in coordination of care (as documented) at patient's floor/unit and/or counseling patient: Internal Medicine: Result - Labs CBC & Chem 7: 09/28/18 11:00 09/29/18 03:46 Labs: Short CBC 09/28/18 Range/Units 11:00 WBC 7.5 (4.3-11.1) K/mcL Hgb 9.6 L (11.5-15.4) g/dL Hct 30.7 L (35.3-44.9) % Plt Count 237 (140-400) K/mcL Neutrophils # 4.9 (1.6-8.9) K/mcL BMP 09/28/18 09/29/18 11:00 03:46 Sodium 138 136 Potassium 4.3 4.3 Chloride 107 104 Carbon Dioxide 24 25 BUN 21 H 27 H Creatinine 0.98 1.20 Glucose 115 H 126 H Calcium 9.1 9.3 - ABG Interpretation ABG results: PT/INR, D-dimer PT 12.2 Seconds (9.4-12.1) H 09/25/18 19:30 D-Dimer 563 ng/mLFEU (0-500) H 09/25/18 16:28 Consult Discharge Plan - Plan Referrals: Hannah Queen MD [Primary Care Provider] - (1) Chest pain Qualifiers: Chest pain type: chest pain due to myocardial ischemia Ischemic chest pain type: unstable angina pectoris Qualified Code(s): I20.0 - Unstable angina (2) CAD (coronary artery disease) Qualifiers: Coronary Disease-Associated Artery/Lesion type: [place] artery [place] vs. transplanted heart: [place] heart Associated angina: with unstable angina Qualified Code(s): I25.110 - Atherosclerotic heart disease of [place] coronary artery with unstable angina pectoris (3) Type II diabetes mellitus Qualifiers: Diabetes mellitus correction insulin use: without correction use Diabetes mellitus complication status: without complication Qualified Code(s): E11.9 - Type 2 diabetes mellitus without complications
[2018-09-29] MEDS ORDERED: Ranolazine 500 MG TAB.ER.12H PO ONE (13:30)
[2018-09-29] MEDS ORDERED: Adenosine 90 MG/30 ML MLS IV ONE (13:31)
[2018-09-30] MEDS ORDERED: Regadenoson 0.4 MG/5 ML SYRINGE IVP ONE (05:48)
[2018-09-30] MEDS: *HR* Heparin 5,000 UNIT/ML VIAL SQ SCH ×3 (06:24→20:20)
[2018-09-30] MEDS: Insulin LISPRO 300 UNITS/3 ML VIAL SQ SCH ×4 (07:37→23:13)
--- NOTE | 2018-09-30 08:11 | Cardiology Progress Note ---
Date of Encounter: 09/30/18 Time of Encounter: 08:10 Assessment and Plan (1) Chest pain Current Visit: Yes Status: Acute Per Cardiology: Unfortunately, continues to experience chest discomfort, however reproducible with palpation. ECG repeated with no changes from baseline-- reviewed with primary journeyman molder. Nasal cannula O2 applied. Patient received morning medications with improvement of chest pain from 10 out of 10 now to 5 out of 10. Currently undergoing 2 day nonexercise nuclear stress test with first portion completed this morning. We will check troponin, of note had mild troponin 0.06, 0.07, 0.06 this past weekend after recent stenting. Will evaluate resting stress images and once again review catheter film with interventional ca rdiology. Qualifiers: Chest pain type: chest pain due to myocardial ischemia Ischemic chest pain type: unstable angina pectoris Qualified Code(s): I20.0 - Unstable angina (2) CAD (coronary artery disease) Current Visit: Yes Status: Chronic Per Cardiology: S/P LHC: Lesion Findings/Interventions * Left Main Coronary Artery The LMCA is angiographically free of disease. * Left Anterior Descending There is a 40% stenosis in the Mid LAD. There is a 65% stenosis in the 1st Diagonal. * Circumflex There is a 70% stenosis in the Mid Circumflex. The lesion has a TYREE flow of 3 and has no thrombus present. An intervention was performed on the Mid Circumflex with a final stenosis of 0%. There were no lesion complications. The final TYREE flow was 3. * Right Coronary Artery There is a 20% stenosis in the Right PDA. Kidney function stable. On aspirin, Brilinta, statin, JAMES inhibitor, long- acting nitrate, and Ranexa. Of note, long-acting nitrate currently on hold due to undergoing stress test. Qualifiers: Coronary Disease-Associated Artery/Lesion type: [place] artery [place] vs. transplanted heart: [place] heart Associated angina: with unstable angina Qualified Code(s): I25.110 - Atherosclerotic heart disease of [place] coronary artery with unstable angina pectoris Discussion w patient/family: The assessment and plan as outlined above was discussed with the patient and/or family members who expressed understanding and agreement. All questions were answered. Thank you for involving us in the care of your patient. Please call with any questions. Subjective Principal diagnosis: CAD Interval history: Patient seen this morning complaining of 10 out of 10 chest pain. Left anterior chest wall discomfort reproducible with palpation. ECG completed. NC O2 applied. Received morning meds. Reevaluated with improvement of chest pain to about 5 out of 10. Objective Vital Signs, Last 4 Hours Temp Pulse Resp BP Pulse Ox 09/30/18 04:50 98.1 F 64 16 107/68 98 General: Conversant, No Apparent Distress HEENT: Atraumatic, Normocephaly, Mucus Membranes Moist Neck: No JVD, Normal carotid pulses Cardiac: Reg Rate and Rhythm, Normal S1 and S2, No Murmur Lungs: Normal Breath Sounds, No Wheeze, Rales, Rhonchi Neuro: Alert and responsive, No focal deficits noted Abdomen: Soft, Non-Tender Skin: No rashes noted on visualized skin Musculoskeletal: No Chest Wall Tenderness, Other (Left anterior chest wall discomfort reproducible with palpation) Extremities: No Clubbing, No Cyanosis, No Edema, Normal Pulses Results 09/30/18 09:07 09/30/18 09:07 Active Medications Aspirin (Aspirin Ec) 81 mg PO DAILY [facility] Stop: 03/28/19 09:01 Last Admin: 09/29/18 08:22 Dose: 81 mg Atorvastatin Calcium (Lipitor) 80 mg PO HS [facility] Stop: 03/27/19 21:01 Last Admin: 09/29/18 23:12 Dose: 80 mg Citalopram Hydrobromide (Celexa) 20 mg PO DAILY [facility] Stop: 03/28/19 09:01 Last Admin: 09/29/18 08:23 Dose: 20 mg Cyclobenzaprine HCl (Flexeril) 10 mg PO TID PRN PRN Reason: Pain Stop: 03/27/19 19:08 Last Admin: 09/28/18 09:13 Dose: 10 mg Dextrose/Water (Dextrose 50% (Syg)) 25 ml IVP AD PRN PRN Reason: Hypoglycemia Stop: 03/27/19 19:19 Docusate Sodium (Colace) 100 mg PO BID [facility]; Protocol Stop: 03/27/19 21:01 Last Admin: 09/29/18 23:11 Dose: 100 mg Glucagon (Glucagen) 1 mg IM ONCE PRN PRN Reason: Hypoglycemia Stop: 03/27/19 19:19 Glucose (Gluctose) 15 gm PO ONCE PRN PRN Reason: Hypoglycemia Stop: 03/27/19 19:19 Glucose (Gluctose) 30 gm PO ONCE PRN PRN Reason: Hypoglycemia Stop: 03/27/19 19:19 Heparin Sodium (Porcine) (Heparin) 5,000 unit SQ Q8HCO [facility] Stop: 03/29/19 22:01 Last Admin: 09/30/18 06:24 Dose: Not Given Dextrose (Dextrose 5%) 1,000 mls @ 100 mls/hr IVC .Q10H PRN PRN Reason: HYPOGLYCEMIA Stop: 03/27/19 19:19 Insulin Human Lispro (Humalog) 0 units SQ TIDAC [facility]; Protocol Stop: 03/28/19 07:31 Last Admin: 09/30/18 07:37 Dose: Not Given Insulin Human Lispro (Humalog) 0 units SQ HS [facility]; Protocol Stop: 03/27/19 21:01 Last Admin: 09/29/18 23:16 Dose: Not Given Lisinopril (Zestril) 5 mg PO DAILY [facility]; Protocol Stop: 03/28/19 09:01 Last Admin: 09/29/18 08:22 Dose: 5 mg Metoprolol Tartrate (Lopressor) 12.5 mg PO BID [facility] Stop: 03/29/19 10:31 Last Admin: 09/29/18 23:12 Dose: 12.5 mg Naloxone HCl (Narcan) 0.4 mg IVP Q2MIN PRN PRN Reason: SEE COMMENTS Stop: 03/27/19 19:13 Polyethylene Glycol (Miralax) 17 gm PO DAILY PRN PRN Reason: Constipation Stop: 03/31/19 16:50 Last Admin: 09/29/18 17:45 Dose: 17 gm Ranolazine (Ranexa) 1,000 mg PO BID [facility] Stop: 03/31/19 21:01 Last Admin: 09/29/18 23:11 Dose: 1,000 mg Ticagrelor (Brilinta) 90 mg PO DAILY [facility] Stop: 03/28/19 09:01 Last Admin: 09/29/18 08:22 Dose: 90 mg Trazodone HCl (Trazodone) 50 mg PO HS PRN PRN Reason: Sleep Stop: 03/27/19 19:08 Last Admin: 09/27/18 00:38 Dose: 50 mg - Imaging and Cardiology Stress Test: pending Cardiac cath: report reviewed - EKG Interpretation EKG results cardiology: personally reviewed (Comparable to baseline, reviewed with Dr. Luis), no diagnostic ischemia Consult Discharge Plan - Plan Referrals: Hannah Queen MD [Primary Care Provider] -
--- NOTE | 2018-09-30 09:00 | Internal Med Progress Note ---
Hospitalist Progress Note - Encounter Date of Encounter: 09/30/18 Time of Encounter: 11:00 - Subjective Interval History: Patient who presented due to chest pain found to have severe 1 vessel disease on left heart catheterization status post PTCA/CAROLA placement in the mid circumflex on 09/26/18 Patient continues to complain of chest pressure even after increasing Imdur dose and the addition of Ranexa Cardiology following with recommendations for nuclear medicine stress test and consideration for left heart catheterization depending on results of tests - Exam Vitals: Temp Pulse Resp BP Pulse Ox 98.1 F 64 16 107/68 98 09/30/18 04:50 09/30/18 04:50 09/30/18 04:50 09/30/18 04:50 09/30/18 04:50 Exam: Gen.: Nonacute distress, alert and oriented 3 ENT: Mucosal membranes moist Respiratory: Lungs are clear to auscultation bilaterally without any wheezing rhonchi or rales Cardiovascular: Normal S1 and S2 regular rate rhythm no murmurs rubs or gallops Abdomen: Soft, nontender and nondistended with positive bowel sounds Extremities: No lower extremity edema Skin: Normal color - Assessment and Plan (1) Chest pain Current Visit: Yes Status: Acute Assessment and Plan: Patient sent to the ER by skiver machine operator's office due to unstable angina She was found to have severe 1 vessel disease on left heart catheterization Patient status post PTCA/CAROLA placement in the mid circumflex on 09/26/18 Patient however continues to complain of chest pressure even after increasing Imdur dose and the addition of Ranexa Cardiology following with recommendations for nuclear medicine stress test and consideration for left heart catheterization depending on results of tests (2) CAD (coronary artery disease) Current Visit: Yes Status: Chronic Assessment and Plan: Patient with 4 stents placed in 11/2017 Patient had a recent left heart catheterization during her hospital stay on 08/04/18 with a 30-40% stenosis in mid LAD, 65% stenosis and first diagonal with patent stent, 50-60% stenosis in the mid circumflex and 20% stenosis in. right PDA in addition to 30% stenosis in RPAV. Left Heart catheterization as above Medical management was recommended at that time an outpatient setting with nitrates, aspirin, statin, beta linda and Brilinta. (3) Type II diabetes mellitus Current Visit: No Status: Chronic Assessment and Plan: Will cover with sliding scale insulin and hold oral diabetic medications (4) Mood disorder Current Visit: Yes Status: Acute Assessment and Plan: Continue home dose of SSRI DVT Prophylaxis: Heparin subcutaneous - Time Spent with Patient Total time spent is greater than 50% in coordination of care (as documented) at patient's floor/unit and/or counseling patient: Internal Medicine: Result - Labs CBC & Chem 7: 09/30/18 09:07 09/30/18 09:07 - ABG Interpretation ABG results: PT/INR, D-dimer PT 12.2 Seconds (9.4-12.1) H 09/25/18 19:30 D-Dimer 563 ng/mLFEU (0-500) H 09/25/18 16:28 Consult Discharge Plan - Plan Referrals: Hannah Queen MD [Primary Care Provider] - (1) Chest pain Qualifiers: Chest pain type: chest pain due to myocardial ischemia Ischemic chest pain type: unstable angina pectoris Qualified Code(s): I20.0 - Unstable angina (2) CAD (coronary artery disease) Qualifiers: Coronary Disease-Associated Artery/Lesion type: [place] artery [place] vs. transplanted heart: [place] heart Associated angina: with unstable angina Qualified Code(s): I25.110 - Atherosclerotic heart disease of [place] coronary artery with unstable angina pectoris (3) Type II diabetes mellitus Qualifiers: Diabetes mellitus fpc insulin use: without fpc use Diabetes mellitus complication status: without complication Qualified Code(s): E11.9 - Type 2 diabetes mellitus without complications
[2018-09-30] MEDS: Aspirin Enteric Coated 81 MG Tablet PO SCH (09:15)
[2018-09-30] MEDS: Ranolazine 500 MG TAB.ER.12H PO SCH ×2 (09:15→20:19)
[2018-09-30] MEDS: *HR* Ticagrelor 90 MG TABLET PO SCH ×2 (09:16→20:19)
[2018-09-30 10:00] LABS: Basophils # 0.1 K/mcL (0.0-0.2); Basophils % 0.4 %; Eosinophils # 0.5 K/mcL (0.0-0.6); Hematocrit 33.1 % (35.3-44.9); Hemoglobin 10.8 g/dL (11.5-15.4); Immature Granulocytes % 0.3 % (0-4); Lymphocytes # 1.9 K/mcL (0.6-4.6); Lymphocytes % 15.8 %; Mean Corpuscular HGB Conc 32.6 g/dL (31.6-35.5); Monocytes % 8.6 %; Neutrophils # 8.3 K/mcL (1.6-8.9); Platelet Count 296 K/mcL (140-400); Red Blood Count 3.72 M/mcL (3.82-4.97); Red Cell Distribution Width 14.6 % (11.5-14.5); Segmented Neutrophils % 70.9 %
[2018-09-30 10:21] LABS: Potassium 4.6 mEq/L (3.5-5.1)
[2018-09-30 11:24] LABS: Troponin I 0.03 ng/mL (< 0.04)
--- NOTE | 2018-09-30 12:58 | Event Note ---
Date of Encounter: 09/30/18 Time of Encounter: 13:00 - Cardiology Event Note Catheter film reviewed by Dr. Margareth Tarango, no further catheterization recommended. Still awaiting ablation of 2 day nuclear stress test. Chest pain symptoms improved around lunchtime. Further recommendations pending stress test results tomorrow. Once stress test completed will need to resume long-acting nitrate.
--- NOTE | 2018-09-30 17:48 | Electrocardiograph Report ---
[place] [id number] Test Date: 2018-09-30 Pat Name: Racheal Thornton Department: 115 Room: 3A15 Gender: F Mobile Home Technician: : 1960 Requested By: James Denis Order Number: [id number] Reading MD: Margareth Tarango Measurements Intervals [place] Rate: 63 P: 33 DC: 199 QRS: -37 QRSD: 94 T: 72 QT: 396 QTc: 404 Interpretive Statements SINUS RHYTHM MARKED LEFT AXIS DEVIATION PATTERN CONSISTENT WITH PULMONARY DISEASE Electronically Signed On 09-30-2018 17:47:15 EST by Margareth Tarango
[2018-10-01] MEDS: *HR* Heparin 5,000 UNIT/ML VIAL SQ SCH ×3 (05:18→21:01)
[2018-10-01] MEDS: Insulin LISPRO 300 UNITS/3 ML VIAL SQ SCH ×4 (09:44→22:25)
[2018-10-01] MEDS: Ranolazine 500 MG TAB.ER.12H PO SCH ×2 (11:02→20:58)
[2018-10-01] MEDS: Aspirin Enteric Coated 81 MG Tablet PO SCH (11:02)
[2018-10-01] MEDS: traMADol 50 MG TABLET PO PRN (11:02)
[2018-10-01] MEDS: *HR* Ticagrelor 90 MG TABLET PO SCH ×2 (11:03→21:01)
--- NOTE | 2018-10-01 13:21 | Event Note ---
Date of Encounter: 10/01/18 Time of Encounter: 13:19 - Cardiology Event Note Chest pain persists, 06/02. 2 day stress test completed today--Gated EF = 72%. Small sized, moderate intensity, reversible basal to mid anterolateral perfusion defect consistent with ischemia. Area of ischemia correlates with known rem aining 65% diag lesion on LHC 09/26/18. Discussed reviewed with Dr. Luis and with interventionalist, Dr. Escamilla. Recommend LHC with possible PCI. R/B/A discussed. Pt agrees to proceed. Of note, pt ate a full lunch. Interventionalist aware. Plan for LHC later today.
[2018-10-01 14:01] LABS: Calcium 9.5 mg/dL (8.6-10.3); Potassium 5.2 mEq/L (3.5-5.1)
[2018-10-01] MEDS ORDERED: *HR* Heparin 10,000 UNIT/10 ML VIAL ONE (14:07)
[2018-10-01] MEDS ORDERED: ISOVUE-370 200 ML INFUS..BTL ONE (14:07)
[2018-10-01] MEDS ORDERED: Heparin 1,000 UNITS/500 mL 500 ML ONE (14:07)
[2018-10-01] MEDS ORDERED: 0.9 % Sodium Chloride 1,000 ML ONE (14:08)
[2018-10-01] MEDS ORDERED: Nitroglycerin 1,000 MCG/10 ML VIAL IV ONE (14:08)
[2018-10-01] MEDS ORDERED: Ondansetron 4 MG/2 ML VIAL ONE (14:41)
[2018-10-01] MEDS ORDERED: *HR* FentaNYL (PF) 100 MCG/2 ML VIAL ONE (14:41)
[2018-10-01] MEDS ORDERED: *HR* Midazolam HCl 2 MG/2 ML VIAL ONE (14:41)
--- NOTE | 2018-10-01 15:02 | Pre-Sedation Evaluation ---
Pre-sedation evaluation - Pre-sedation checklist Date of procedure: 09/26/18 Procedure: heart cath Recent Vitals: Last Vital Signs Temp 97.9 F 10/01/18 06:44 Pulse 63 10/01/18 10:27 Resp 16 10/01/18 06:44 BP 145/79 10/01/18 10:27 Pulse Ox 100 10/01/18 06:44 H&P (including ROS) documented in medical record: Yes Previous reaction to sedatives/anesthetics: No Dietary Status: NPO after Midnight Dentition: dentures removed ASA Classification *see protocol: CLASS II-Mild systemic disease Plan of Care: Pt appropriate candidate for procedure/moderate/conscious sedation, Risks/benefits of procedure/sedation discussed w/ patient/family Cardiac Registry (Cardio Only) - Functional Capacity Functional Capacity: >=4 METS with symptoms - Clincal Frailty Scale Clinical Frailty Scale: Managing Well
--- NOTE | 2018-10-01 15:37 | Invasive Diagnostic Lab Proc ---
Name: Racheal Thornton Date of Study: 10/01/2018 Date: 1960 Ht: 64.2in Medical Record#: [id number] Age: 58 Wt: 242.51lb Gender: Female BSA: 2.13 Order #: [id number] BMI: 41.4 Physicians Procedure Physician: Bg Escamilla MD, [facility] Referring MD: Referring MD: Staff Name Position [facility] Monitor 02:22 PM Vishnu Ordonez RN Vice President Of Product Marketing 02:22 PM Ayla Jackson RT Scrub 02:22 PM Indications Indication Unstable Angina Procedures Performed Procedure PRQ CARD CAROLA STENT W/ANGIO 1 VSL CORONARY ARTERY ANGIO S&I Pre-Procedure Checklist Informed consent is complete signed and on chart. H&P is on chart. ID band is on and ID verified with patient. Patient NPO for procedure The procedure was described for the patient and questions were answered. ECG is on chart. Plan of Care Patient will tolerate the procedure without complications. Adequate level of comfort will be maintained. Hemodynamics will remain stable Patient will recover from procedure without complications. Respiratory function will be maintained. Cardiac rhythm will remain stable. Patient temperature will be maintained. Patient and/or family have verbalized understanding of the procedure. Patient Education Chief Complaint/Reason for Test: Cardiac Cath Developmental Category: Adult (18-64 years) Developmentally Appropriate for Age: Yes Learning Barriers: None Education Needs: Procedure Education Method: Verbal Information Taught: Cardiac Cath Educational Evaluation: Able to repeat information Intravenous Access Time IV Size Location DC'd Fluid/Drip Rate Units RN 20g 1 09/26" Patent On Arrival 0.9NaCl ml/hr Allergies No Known Allergies Vital Signs Time BP (mmHg) HR (bpm) O2 Sat. RR (bpm) LOC 02:51 PM / % 4 = Oriented but drowsy 02:51 PM / % 4 = Oriented but drowsy 03:06 PM / % 4 = Oriented but drowsy 02:50 PM 159 / 70 63 98 % 16 02:54 PM 171 / 80 63 98 % 23 02:59 PM 138 / 74 66 98 % 17 03:05 PM 153 / 76 67 92 % 13 03:09 PM 145 / 72 64 94 % 20 03:14 PM 135 / 70 66 92 % 20 03:19 PM 108 / 47 82 91 % 16 03:24 PM 117 / 69 88 93 % 18 Procedural Medications Time Medication Dose Units Method Given By 02:51 PM Oxygen 2 L/min nasal cannula Vishnu Ordonez RN 02:51 PM Versed 1 mg Intravenous Vishnu Ordonez RN 02:51 PM Fentanyl 25 mcg Intravenous Vishnu Ordonez RN 02:51 PM Zofran 8 mg Intravenous Vishnu Ordonez RN 03:07 PM Lidocaine 2% 19 ml Subcutaneous Bg Escamilla MD, FACC 03:12 PM Heparin 4000 units Intravenous Vishnu Ordonez RN 03:16 PM Nitroglycerin 100 mcg Intracoronary Bg Escamilla MD ASA Classification: CLASS II- Mild systemic disease (i.e. well-controlled diabetes, hypertension, asthma, cigarette smoking) Yifan Score Preprocedure Postprocedure Activity 2- Moves 4 extremities sustained head lift Activity 2- Moves 4 extremities sustained head lift Circulation 2- SBP +/= 20 points of pre-anesthetic level Circulation 2- SBP +/= 20 points of pre-anesthetic level Consciousness 2- Awake and alert oriented x 3 Consciousness 2- Awake and alert oriented x 3 O2 Saturation 2- Able to maintain O2 satruation of 92% on room air O2 Saturation 2- Able to maintain O2 satruation of 92% on room air Respiratory 2- Able to deep breathe and cough well Respiratory 2- Able to deep breathe and cough well Total Score 10 Total Score 10 Contrast Agent: Isovue Diagnostic Contrast: 83 ml Total Contrast: 83 ml Fluoro Dose: 31 mGy Procedure Log Time Note Enter By 02:22 PM Marely Hernandez RN Position: Monitor Time in: 14:22 [facility] 02:22 PM Vishnu Ordonez RN Position: Vice President Of Product Marketing Time in: 14:22 [facility] 02:22 PM Ayla Jackson RT Position: Scrub Time in: 14:22 [facility] 02:22 PM Patient charges- Angio tray pack, Navilyst 3mm J, Pulse Oximetry and ACIST tubing and transducer 02:39 PM 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 Informed consent was obtained. [facility] 02:41 PM Procedure start 14:41 [facility] 02:48 PM Vitals capture started with the following parameters, Patient=Adult, Interval=5 min, Initial Czhetmyw=156 mmHg, Deflation Rate=3 mmHg, Cuff placed on Right Arm 02:49 PM CathStat 02:49 PM Recorded ECG: HR=70 Condition=Condition 1 02:50 PM HR=63 bpm, IDBB=625/70 mmhg, SpO2=98.0 %, Resp=16 B/min, EtCO2=38 mmHg 02:50 PM ASA Class CLASS II- Mild systemic disease (i.e. well-controlled diabetes, hypertension, asthma, cigarette smoking) tsoummers 02:51 PM Time: 14:51 Oxygen on at 2 L/min per nasal cannula by Vishnu Ordonez RN [email or web address] 02:51 PM Time: 14:51 Versed 1 mg Intravenous Given by Vishnu Ordonez RN 02:51 PM Time: 14:51 Fentanyl 25 mcg Intravenous Given by Vishnu Ordonez RN 02:51 PM Time: 14:51 Zofran 8 mg Intravenous Given by Vishnu Ordonez RN 02:51 PM Time: 14:51 Patient comfortable and pain free: Yes tsoummers 02:51 PM Time: 14:51LOC: 4 = Oriented but drowsy tsoummers 02:54 PM HR=63 bpm, GLCI=794/80 mmhg, SpO2=98.0 %, Resp=23 B/min, EtCO2=35 mmHg 02:59 PM Pressure channel 1 zeroed. 02:59 PM HR=66 bpm, VPVS=029/74 mmhg, SpO2=98.0 %, Resp=17 B/min, EtCO2=35 mmHg 03:04 PM Time out was performed according to hospital policy. Conscious sedation and anesthesia was achieved (see medication log with in this report above) tsoummers 03:05 PM HR=67 bpm, CMYX=297/76 mmhg, SpO2=92.0 %, Resp=13 B/min, EtCO2=31 mmHg 03:06 PM Time: 14:51LOC: 4 = Oriented but drowsy tsoummers 03:07 PM Time: 14:51 Patient comfortable and pain free: Yes tsoummers 03:07 PM Time: 15:07 19 ml Lidocaine 2% to right groin Subcutaneous Given by Bg Escamilla MD, [facility] tsoummers 03:08 PM Access obtained by percutaneous puncture. 6Fr 10cm Terumo Gazelle sheath placed in right Femoral artery. [id number] tsoummers 03:08 PM 0.035 145cm Navilyst 3mmJ wire [id number] tsoummers 03:09 PM HR=64 bpm, OORX=057/72 mmhg, SpO2=94.0 %, Resp=20 B/min, EtCO2=39 mmHg 03:09 PM 6Fr CLS 3.5 Runway guide catheter was used to cannulate the PCI vessel successfully. reused? No tsoummers 03:09 PM wire removed tsoummers 03:11 PM LCA angiography performed in multiple views. tsoummers 03:12 PM Lesion found in 1st Diagonal. Pre Stenosis: 70 Pre TYREE Flow: 3: Complete and Brisk Flow/Perfusion tsoummers 03:12 PM Mid/Distal Left Anterior Descending Coronary Artery and diagonal branches with 70% stenosis. If graft is supplying this area, 0 % stenosis tsoummers 03:12 PM Time: 15:12 Heparin 4000 units Intravenous Given by Vishnu Ordonez RN oumm 03:13 PM .[address] [place] 190cm guide wire across target lesion- successful. reused? No tsoummers 03:14 PM HR=66 bpm, KDQO=174/70 mmhg, SpO2=92.0 %, Resp=20 B/min, EtCO2=40 mmHg 03:14 PM Recorded Pressure: Ao, HR=67, Condition=Condition 1 (Aorta) Ao 114/63/83 03:15 PM 2.25mm x 12mm Synergy drug-eluting stent across target lesion- successful Lot #[id number] oumm 03:16 PM Time: 15:16 Nitroglycerin 100 mcg Intracoronary Given by Bg Escamilla MD oumm 03:17 PM Stent deployed @ 11 carmen for 15 seconds tsoummers 03:19 PM Stent delivery system removed intact. tsoumm 03:19 PM Guide wire removed intact. tsoumm 03:19 PM HR=82 bpm, FFXI=933/47 mmhg, SpO2=91.0 %, Resp=16 B/min, EtCO2=42 mmHg 03:19 PM Guide catheter removed intact. tsoumm 03:20 PM 5Fr FR 4 catheter inserted over the wire [facility] oumm 03:20 PM RCA angiography performed in multiple views. tsoumm 03:21 PM Recorded Pressure: Ao, HR=95, Condition=Condition 1 (Aorta) Ao 66/54/60 03:21 PM Catheter removed 03:22 PM Bolus angiogram of right Femoral complete: 2 ml/sec for a total of 4 mls 03:22 PM Time: 15:07 Patient comfortable and pain free: Yes oumm 03:22 PM Time: 15:06LOC: 4 = Oriented but drowsy tsoumm 03:22 PM Procedure completed at 15:22 10/01/2018 tsoumm 03:23 PM Did you address TYREE flow and Dominance? Yes mm 03:24 PM HR=88 bpm, PKSW=270/69 mmhg, SpO2=93.0 %, Resp=18 B/min 03:24 PM Sign out completed: Radiation Dose 365.56 mGy, 31.0282 Gy/cm2 Fluoro Time: 3.3 Isovue 370 - 200ml contrast 83 ml given by Bg Escamilla MD, FACC. Complications: None. 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 Cardiac Rehab Consult needed: YesConfirmed administered medications: Yes oumm 03:24 PM Isovue 370 - 200ml,1 Bottle(s) used. tsmm 03:24 PM Arterial sheath pulled, Mynx closure device used and was Successful S/N. [id number] oumm 03:25 PM Estimated Blood Loss: minimal tsoumm 03:25 PM Post ECG NSR tsoumm 03:25 PM Post Blood Pressure 117/69 tsoummers 03:26 PM Information taught Cardiac Cath, PCI, and Mynx tsoumm 03:26 PM Education needs Procedure, Plan of Care, and Responsibilities of Patient in Care tsoumm 03:26 PM Learning barriers :None tsoumm 03:26 PM Education Methods Verbal tsoumm 03:26 PM Education evaluation Able to repeat information tsoumm 03:26 PM Site status No bleeding/hematoma - Rt Groin as reported by Ayla Jackson RT at 15:26 tsoummers 03:26 PM Opsite applied tsoummers 03:26 PM Plavix, Effient or Brilinta given No tsoummers 03:26 PM Delay to floor No tsoummers 03:26 PM no family tsoummers 03:26 PM Complications: None tsoummers 03:31 PM Report given to Divya HIGGINS Pt taken to 3A Room #15. 15:30 tsoummers Complications Complication None Hemodynamics Pressures Site Systolic/A Wave Diastolic/V Wave Mean AO 114 63 83 AO 66 54 60 Post Procedure Information Blood Pressure: 117/69 mmHg Rhythm: NSR Post procedural instructions were given Closure Device Time Device Success/Fail 10/01/2018 3:25:00 PM MynxGrip Successful Site Checks Time Location Status Staff Sheath In? Note 03:26 PM Rt Groin No bleeding/hematoma Ayla Jackson RT Pulses Time Site Pre-Procedure Post-Procedure Note Bilateral DP & PT 1+ Bilateral radial 2+ Updated by Marely Hernandez RN on 10/01/2018 3:32:00 PM electronically signed on 10/01/2018 3:32:33 PM with status of Final
--- NOTE | 2018-10-01 16:15 | Internal Med Progress Note ---
Hospitalist Progress Note - Encounter Date of Encounter: 10/01/18 Time of Encounter: 08:25 - Subjective Interval History: Patient was complaining of chest pain earlier today. Chest pain located on the left side of the chest and going down her left breast to her left lateral chest. Worsens with deep breaths. Worsens with any movement. Underwent stress test today. - Exam Vitals: Temp Pulse Resp BP Pulse Ox 97.9 F 63 16 145/79 100 10/01/18 06:44 10/01/18 10:27 10/01/18 06:44 10/01/18 10:27 10/01/18 06:44 Exam: General: Patient is alert, mild distress, oriented x 3 ENT: Mucous membranes moist Respiratory: Good respiratory effort. Normal breath sounds. No wheezing or crackles. Cardiovascular: Patient has left-sided chest wall tenderness. Regular rate and rhythm. s1 and s2 normal No clicks, rubs, gallops, or murmurs. No pedal edema Abdomen: Abdomen is soft, nontender. Bowel sounds are present Musculoskeletal: Spontaneously moving all extremities Skin: warm, dry, intact. Neuro: Alert oriented x 3 normal cranial nerves, no focal deficits - Assessment and Plan (1) Chest pain Current Visit: Yes Status: Acute Assessment and Plan: Status post-left heart catheterization with drug-eluting stent placement. Continues to have chest pain. Stress test done today was again positive for ischemia. Patient to undergo repeat left heart catheterization today. We will await results. Continue supportive care. Patient also has chest wall te nderness suggesting a musculoskeletal reason for her pain also. (2) Type II diabetes mellitus Current Visit: Yes Status: Chronic Assessment and Plan: Well-controlled. Continue current insulin regimen (3) CAD (coronary artery disease) Current Visit: Yes Status: Chronic Assessment and Plan: Continue aspirin, Lipitor, brilinta and lopressor. (4) Mood disorder Current Visit: Yes Status: Acute Assessment and Plan: Continue Celexa DVT Prophylaxis: On subcutaneous heparin - Time Spent with Patient Total time spent is greater than 50% in coordination of care (as documented) at patient's floor/unit and/or counseling patient: Internal Medicine: Result - Labs CBC & Chem 7: 09/30/18 09:07 10/01/18 13:35 Labs: BMP 10/01/18 13:35 Sodium 136 Potassium 5.2 H Chloride 105 Carbon Dioxide 23 BUN 29 H Creatinine 1.30 H Glucose 200 H Calcium 9.5 - ABG Interpretation ABG results: PT/INR, D-dimer PT 12.2 Seconds (9.4-12.1) H 09/25/18 19:30 D-Dimer 563 ng/mLFEU (0-500) H 09/25/18 16:28 Consult Discharge Plan - Plan Referrals: Hannah Queen MD [Primary Care Provider] - (1) Chest pain Qualifiers: Chest pain type: chest pain due to myocardial ischemia Ischemic chest pain type: unstable angina pectoris Qualified Code(s): I20.0 - Unstable angina (2) Type II diabetes mellitus Qualifiers: 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 transplanted heart: [place] heart Associated angina: with unstable angina Qualified Code(s): I25.110 - Atherosclerotic heart disease of [place] coronary artery with unstable angina pectoris
[2018-10-01] MEDS: Ringers Solution, Lactated 1,000 ML IVC SCH (16:30)
[2018-10-02 04:06] LABS: Basophils # 0.1 K/mcL (0.0-0.2); Basophils % 0.5 %; Eosinophils # 0.4 K/mcL (0.0-0.6); Eosinophils % 3.9 %; Hematocrit 37.3 % (35.3-44.9); Hemoglobin 11.4 g/dL (11.5-15.4); Immature Granulocytes % 0.3 % (0-4); Lymphocytes # 1.7 K/mcL (0.6-4.6); Lymphocytes % 15.2 %; Mean Corpuscular HGB Conc 30.6 g/dL (31.6-35.5); Mean Corpuscular Hemoglobin 28.5 pg (28.0-33.3); Mean Corpuscular Volume 93.3 fL (83.0-100.0); Mean Platelet Volume 11.1 fL (9.4-12.4); Monocytes % 8.5 %; Neutrophils # 8.1 K/mcL (1.6-8.9); Platelet Count 264 K/mcL (140-400); Red Cell Distribution Width 14.8 % (11.5-14.5); Segmented Neutrophils % 71.6 %
[2018-10-02 04:23] LABS: Calcium 9.3 mg/dL (8.6-10.3); Potassium 4.5 mEq/L (3.5-5.1)
[2018-10-02] MEDS: *HR* Heparin 5,000 UNIT/ML VIAL SQ SCH ×3 (05:47→21:20)
[2018-10-02] MEDS: Ringers Solution, Lactated 1,000 ML IVC SCH ×2 (06:00→21:20)
[2018-10-02] MEDS: Insulin LISPRO 300 UNITS/3 ML VIAL SQ SCH ×4 (07:49→21:19)
[2018-10-02] MEDS: Ranolazine 500 MG TAB.ER.12H PO SCH ×2 (10:27→19:57)
[2018-10-02] MEDS: *HR* Ticagrelor 90 MG TABLET PO SCH ×2 (10:27→19:58)
[2018-10-02] MEDS: Aspirin Enteric Coated 81 MG Tablet PO SCH (10:28)
[2018-10-02 11:53] LABS: Calcium 9.3 mg/dL (8.6-10.3); Potassium 4.1 mEq/L (3.5-5.1)
--- NOTE | 2018-10-02 12:42 | Cardiology Progress Note ---
Date of Encounter: 10/02/18 Time of Encounter: 12:41 Assessment and Plan (1) CAD (coronary artery disease) Current Visit: Yes Status: Chronic Per Cardiology: Presented with unstable angina. Underwent LHC 09/26/18 with CAROLA to mLCx. Continued to have chest pain and underwent 2 day stress test positive for ischemia that correlated with known remaining 65% diag lesion. Underwent repeat LHC yesterday 10/01/18 with CAROLA to Diag--final report pending. Pt now chest pain free. DAPT (ASA and Brilinta) uninterrupted x 1 year. Pt verbalizes understanding. Continue Statin, BB, ACEi, nitrates. Right femoral access site healing well. No bleeding, hematoma or ecchymosis noted. Restrictions discussed. Renal function has worsened. Creatinine 1.43 with solitary kidney. Recommend keeping another night to monitor renal function. Continue IV fluids. Cardiology signing off. Reconsult PRN. Will coordinate outpt follow-up in 3-4 weeks. Qualifiers: Coronary Disease-Associated Artery/Lesion type: [place] artery [place] vs. tr ansplanted heart: [place] heart Associated angina: with unstable angina Qualified Code(s): I25.110 - Atherosclerotic heart disease of [place] coronary artery with unstable angina pectoris (2) Solitary kidney Current Visit: Yes Status: Acute Recent left nephrectomy for calcified, non-functioning kidney on 06/26. Renal function previously normal, now creatinine has worsened 1.43. 2 LHCs during stay. Continue IV fluids. Recommend keeping another night to monitor renal function. Management per primary team. Discussion w patient/family: The assessment and plan as outlined above was discussed with the patient and/or family members who expressed understanding and agreement. All questions were answered. Thank you for involving us in the care of your patient. Please call with any questions. I will discuss all the above with Dr. Luis and make changes as necessary. Subjective Principal diagnosis: CAD Interval history: S/P repeat LHC yesterday for continued chest pain and abnormal stress test. Received PCI/CAROLA to Diag. Final report pending. Pt now chest pain free. No acute complaints. Objective Vital Signs, Last 4 Hours Temp Pulse Resp BP Pulse Ox 10/02/18 11:13 97.9 F 66 16 138/81 96 Vital Signs Temp Pulse Resp BP Pulse Ox 10/02/18 11:13 97.9 F 66 16 138/81 96 10/02/18 06:46 97.7 F 61 16 123/77 95 10/02/18 04:28 97.7 F 59 11 121/79 97 10/02/18 00:15 97.7 F 57 11 127/80 96 10/01/18 19:13 97.9 F 68 12 154/78 95 10/01/18 18:15 74 18 172/81 97 10/01/18 17:45 97.9 F 75 18 163/59 97 10/01/18 17:00 62 20 150/79 97 10/01/18 16:45 65 20 164/80 99 10/01/18 16:25 64 20 139/82 97 10/01/18 16:10 63 20 141/80 96 Intake and Output 10/01/18 10/02/18 10/02/18 23:59 07:59 15:59 Intake Total 1000 / 1000 240 / 240 Output Total 0 / 0 Balance 1000 / 1000 240 / 240 Intake: IV Fluids 1000 / 1000 Lactated Ringers 1,000 ML @ 75 1000 / 1000 mls/hr IVC .[id number] TOÑO Rx#: [id number] Oral 0 / 0 240 / 240 Output: Urine 0 / 0 Other: Meal Breakfast Percent of Meal Consumed 80% # Voids 1 1 Weight 108.9 kg Blood Glucose* 127 107 109 Patient Weight 10/02/18 23:59 Weight 108.9 kg General: Conversant, No Apparent Distress HEENT: Atraumatic, Normocephaly, Mucus Membranes Moist Neck: No JVD, Normal carotid pulses Cardiac: Reg Rate and Rhythm, Normal S1 and S2, No Murmur Lungs: Normal Breath Sounds, No Wheeze, Rales, Rhonchi Neuro: Alert and responsive, No focal deficits noted Abdomen: Soft, Non-Tender Skin: Other (right femoral access site healing well. No bleeding or hematoma. Mild ecchymosis.) Musculoskeletal: No Chest Wall Tenderness Extremities: No Clubbing, No Cyanosis, No Edema, Normal Pulses Results 10/02/18 03:28 10/02/18 11:17 Lab Results 10/01/18 10/02/18 10/02/18 13:35 03:28 03:28 WBC 11.4 H Hgb 11.4 L Hct 37.3 Plt Count 264 Sodium 136 137 Potassium 5.2 H 4.5 Chloride 105 105 Carbon Dioxide 23 23 BUN 29 H 28 H Creatinine 1.30 H 1.39 H Glucose 200 H 102 Calcium 9.5 9.3 10/02/18 11:17 WBC Hgb Hct Plt Count Sodium 134 L Potassium 4.1 Chloride 103 Carbon Dioxide 26 BUN 26 H Creatinine 1.43 H Glucose 117 H Calcium 9.3 Short CBC 10/02/18 Range/Units 03:28 WBC 11.4 H (4.3-11.1) K/mcL Hgb 11.4 L (11.5-15.4) g/dL Hct 37.3 (35.3-44.9) % Plt Count 264 (140-400) K/mcL Neutrophils # 8.1 (1.6-8.9) K/mcL BMP 10/02/18 10/02/18 10/01/18 Range/Units 11:17 03:28 13:35 Sodium 134 L 137 136 (136-145) mEq/L Potassium 4.1 4.5 5.2 H (3.5-5.1) mEq/L Chloride 103 105 105 (98-107) mEq/L Carbon Dioxide 26 23 23 (23-29) mEq/L BUN 26 H 28 H 29 H (6-20) mg/dL Creatinine 1.43 H 1.39 H 1.30 H (0.60-1.20) mg/dL Glucose 117 H 102 200 H (70-105) mg/dL Calcium 9.3 9.3 9.5 (8.6-10.3) mg/dL Active Medications Aspirin (Aspirin Ec) 81 mg PO DAILY TOÑO Stop: 03/28/19 09:01 Last Admin: 10/02/18 10:28 Dose: 81 mg Atorvastatin Calcium (Lipitor) 80 mg PO HS TOÑO Stop: 03/27/19 21:01 Last Admin: 10/01/18 20:58 Dose: 80 mg Citalopram Hydrobromide (Celexa) 20 mg PO DAILY TOÑO Stop: 03/28/19 09:01 Last Admin: 10/02/18 10:27 Dose: 20 mg Cyclobenzaprine HCl (Flexeril) 10 mg PO TID PRN PRN Reason: Pain Stop: 03/27/19 19:08 Last Admin: 10/01/18 11:03 Dose: 10 mg Dextrose/Water (Dextrose 50% (Syg)) 25 ml IVP AD PRN PRN Reason: Hypoglycemia Stop: 03/27/19 19:19 Docusate Sodium (Colace) 100 mg PO BID [facility]; Protocol Stop: 03/27/19 21:01 Last Admin: 10/02/18 10:27 Dose: 100 mg Glucagon (Glucagen) 1 mg IM ONCE PRN PRN Reason: Hypoglycemia Stop: 03/27/19 19:19 Glucose (Gluctose) 15 gm PO ONCE PRN PRN Reason: Hypoglycemia Stop: 03/27/19 19:19 Glucose (Gluctose) 30 gm PO ONCE PRN PRN Reason: Hypoglycemia Stop: 03/27/19 19:19 Heparin Sodium (Porcine) (Heparin) 5,000 unit SQ Q8HCO [facility] Stop: 03/29/19 22:01 Last Admin: 10/02/18 05:47 Dose: 5,000 unit Dextrose (Dextrose 5%) 1,000 mls @ 100 mls/hr IVC .Q10H PRN PRN Reason: HYPOGLYCEMIA Stop: 03/27/19 19:19 Lactated Ringer's (Lactated Ringers) 1,000 mls @ 75 mls/hr IVC .[id number] [facility] Stop: 04/02/19 16:31 Last Admin: 10/02/18 06:00 Dose: 75 mls/hr Insulin Human Lispro (Humalog) 0 units SQ TIDAC [facility]; Protocol Stop: 03/28/19 07:31 Last Admin: 10/02/18 07:49 Dose: Not Given Insulin Human Lispro (Humalog) 0 units SQ HS [facility]; Protocol Stop: 03/27/19 21:01 Last Admin: 10/01/18 22:25 Dose: Not Given Lisinopril (Zestril) 5 mg PO DAILY [facility]; Protocol Stop: 03/28/19 09:01 Last Admin: 10/02/18 10:28 Dose: 5 mg Metoprolol Tartrate (Lopressor) 12.5 mg PO BID [facility] Stop: 03/29/19 10:31 Last Admin: 10/02/18 10:28 Dose: 12.5 mg Naloxone HCl (Narcan) 0.4 mg IVP Q2MIN PRN PRN Reason: SEE COMMENTS Stop: 03/27/19 19:13 Polyethylene Glycol (Miralax) 17 gm PO DAILY PRN PRN Reason: Constipation Stop: 03/31/19 16:50 Last Admin: 09/29/18 17:45 Dose: 17 gm Ranolazine (Ranexa) 1,000 mg PO BID TOÑO Stop: 03/31/19 21:01 Last Admin: 10/02/18 10:27 Dose: 1,000 mg Ticagrelor (Brilinta) 90 mg PO BID TOÑO Stop: 04/01/19 21:01 Last Admin: 10/02/18 10:27 Dose: 90 mg Tramadol HCl (Ultram) 50 mg PO Q8HR PRN PRN Reason: Moderate Pain Stop: 04/02/19 10:38 Last Admin: 10/01/18 11:02 Dose: 50 mg Trazodone HCl (Trazodone) 50 mg PO HS PRN PRN Reason: Sleep Stop: 03/27/19 19:08 Last Admin: 09/27/18 00:38 Dose: 50 mg - Imaging and Cardiology Stress Test: report reviewed Echo: report reviewed Cardiac cath: report reviewed - EKG Interpretation EKG results cardiology: other (12 hr tele AVG HR 61, SR) Consult Discharge Plan - Plan Referrals: Hannah Queen MD [Primary Care Provider] -
[2018-10-02 13:21] LABS: Bilirubin,Urine Negative (Negative); Blood,Urine Negative (Negative); Clarity,Urine Clear (Clear); Color,Urine Yellow (Yellow); Glucose,Urine (UA) Normal (Normal); Ketones,Urine Negative (Negative); Leukocyte Esterase,Urine Negative (Negative); Nitrite,Urine Negative (Negative); PH,Urine 5.5 pH Units (5.0-8.0); Protein,Urine Negative (Neg-Trace); Specific Gravity,Urine > 1.030 (1.010-1.025); Urobilinogen,Urine Normal (Normal)
--- NOTE | 2018-10-02 14:39 | Internal Med Progress Note ---
Hospitalist Progress Note - Encounter Date of Encounter: 10/02/18 Time of Encounter: 09:10 - Subjective Interval History: Patient continues to have upper chest wall pain. She also reports that she noticed some blood on toilet paper she had urinated earlier this morning. Has not noticed any significant decrease in urine output. She underwent left heart catheterization yesterday. No postop bleeding. - Exam Vitals: Temp Pulse Resp BP Pulse Ox 97.9 F 66 16 138/81 96 10/02/18 11:13 10/02/18 11:13 10/02/18 11:13 10/02/18 11:13 10/02/18 11:13 Exam: General: Patient is alert, mild distress, oriented x 3 ENT: Mucous membranes moist Respiratory: Good respiratory effort. Normal breath sounds. No wheezing or crackles. Cardiovascular: Left upper chest wall tenderness. Regular rate and rhythm. s1 and s2 normal No clicks, rubs, gallops, or murmurs. No pedal edema Abdomen: Abdomen is soft, nontender. Bowel sounds are present Musculoskeletal: Spontaneously moving all extremities . Right inguinal region looks clean, no signs of active bleeding. Skin: warm, dry, intact. Neuro: Alert oriented x 3 normal cranial nerves, no focal deficits - Assessment and Plan (1) Chest pain Current Visit: Yes Status: Acute Assessment and Plan: Status post second PCI during this hospitalization done yesterday with placement of drug-eluting stent. Continues to report musculoskeletal chest pain. Otherwise doing better overall. (2) Acute kidney injury Current Visit: Yes Status: Acute Assessment and Plan: Creatinine worsened today. Patient on IV fluids since yesterday. Did receive IV contrast with left heart catheterization yesterday. Second procedure during this hospitalization. Patient has a solitary kidney and is at high risk for worsening renal function. We will continue to monitor renal function closely. Continue IV fluids. If renal function worsens, will consult nephrology. The patient did report some hematuria but most likely it is from the right inguinal region site. Urinalysis does not show any RBC. (3) Type II diabetes mellitus Current Visit: Yes Status: Chronic Assessment and Plan: Blood sugars remained controlled. Continue current sliding scale regimen (4) CAD (coronary artery disease) Current Visit: Yes Status: Chronic Assessment and Plan: Continue aspirin, statin, metoprolol, lisinopril and Brilinta (5) Mood disorder Current Visit: Yes Status: Acute Assessment and Plan: Continue Celexa and trazodone DVT Prophylaxis: Sq heparin - Time Spent with Patient Total time spent is greater than 50% in coordination of care (as documented) at patient's floor/unit and/or counseling patient: Internal Medicine: Result - Labs CBC & Chem 7: 10/02/18 03:28 10/02/18 11:17 Labs: Short CBC 10/02/18 Range/Units 03:28 WBC 11.4 H (4.3-11.1) K/mcL Hgb 11.4 L (11.5-15.4) g/dL Hct 37.3 (35.3-44.9) % Plt Count 264 (140-400) K/mcL Neutrophils # 8.1 (1.6-8.9) K/mcL BMP 10/02/18 10/02/18 03:28 11:17 Sodium 137 134 L Potassium 4.5 4.1 Chloride 105 103 Carbon Dioxide 23 26 BUN 28 H 26 H Creatinine 1.39 H 1.43 H Glucose 102 117 H Calcium 9.3 9.3 Urine 10/02/18 Range/Units 12:15 Urine Color Yellow (Yellow) Urine Clarity Clear (Clear) Urine pH 5.5 (5.0-8.0) pH Units Ur Specific [place] > 1.030 H (1.010-1.025) Urine Protein Negative (Neg-Trace) mg/dL Urine Glucose (UA) Normal (Normal) mg/dL - ABG Interpretation ABG results: PT/INR, D-dimer PT 12.2 Seconds (9.4-12.1) H 09/25/18 19:30 D-Dimer 563 ng/mLFEU (0-500) H 09/25/18 16:28 Consult Discharge Plan - Plan Referrals: Hannah Queen MD [Primary Care Provider] - (1) Chest pain Qualifiers: Chest pain type: chest pain due to myocardial ischemia Ischemic chest pain type: unstable angina pectoris Qualified Code(s): I20.0 - Unstable angina (3) Type II diabetes mellitus Qualifiers: Diabetes mellitus fci insulin use: without terminal computer operator use Diabetes mellitus complication status: without complication Qualified Code(s): E11.9 - Type 2 diabetes mellitus without complications (4) CAD (coronary artery disease) Qualifiers: Coronary Disease-Associated Artery/Lesion type: [place] artery [place] vs. transplanted heart: [place] heart Associated angina: with unstable angina Qualified Code(s): I25.110 - Atherosclerotic heart disease of [place] coronary artery with unstable angina pectoris
--- NOTE | 2018-10-02 17:27 | Electrocardiograph Report ---
[address] [address] Test Date: 2018-09-30 Pat Name: Racheal Thornton Department: 115 Room: 3A15 Gender: Oyster Preparer: 3A : 1960 Requested By: Kervin Lewis Order Number: [id number] Reading MD: Deidre Magana Measurements Intervals [place] Rate: 63 P: 13 HI: 192 QRS: -30 QRSD: 98 T: 84 QT: 412 QTc: 418 Interpretive Statements SINUS RHYTHM BORDERLINE LEFT AXIS DEVIATION NONSPECIFIC T-WAVE ABNORMALITY Electronically Signed On 10-02-2018 17:26:20 EST by Deidre Magana
[2018-10-03 03:55] LABS: Basophils % 0.4 %; Eosinophils # 0.4 K/mcL (0.0-0.6); Eosinophils % 4.1 %; Hematocrit 31.4 % (35.3-44.9); Hemoglobin 9.9 g/dL (11.5-15.4); Immature Granulocytes % 0.4 % (0-4); Lymphocytes # 1.7 K/mcL (0.6-4.6); Lymphocytes % 17.3 %; Mean Corpuscular HGB Conc 31.5 g/dL (31.6-35.5); Mean Corpuscular Volume 92.1 fL (83.0-100.0); Mean Platelet Volume 11.2 fL (9.4-12.4); Monocytes # 0.9 K/mcL (0.0-1.3); Monocytes % 8.8 %; Neutrophils # 6.8 K/mcL (1.6-8.9); Platelet Count 250 K/mcL (140-400); Red Blood Count 3.41 M/mcL (3.82-4.97); Red Cell Distribution Width 14.8 % (11.5-14.5)
[2018-10-03 04:15] LABS: Calcium 9.2 mg/dL (8.6-10.3); Potassium 4.2 mEq/L (3.5-5.1)
[2018-10-03] MEDS: *HR* Heparin 5,000 UNIT/ML VIAL SQ SCH ×2 (05:34→15:09)
[2018-10-03] MEDS: Insulin LISPRO 300 UNITS/3 ML VIAL SQ SCH ×2 (07:55→11:31)
[2018-10-03] MEDS: Ringers Solution, Lactated 1,000 ML IVC SCH ×2 (08:26→15:51)
[2018-10-03] MEDS: *HR* Ticagrelor 90 MG TABLET PO SCH (08:28)
[2018-10-03] MEDS: Ranolazine 500 MG TAB.ER.12H PO SCH (08:28)
[2018-10-03] MEDS: Aspirin Enteric Coated 81 MG Tablet PO SCH (08:29)
[2018-10-03 14:33] VITALS: BP 131/83
--- NOTE | 2018-10-03 14:42 | Discharge Summary ---
- NOTES TO OUTPATIENT PROVIDER Notes to Outpatient Provider: Patient with a history of coronary artery disease, diabetes, hypertension, solitary kidney status post recent left nephrectomy who was hospitalized here with complaints of chest pain with concerns for unstable angina. Patient was evaluated by cardiology and recommended left heart catheterization. Patient underwent this procedure and had a stent placed to the mid circumflex on 09/26. However she continued to have chest pain and cardiology recommended repeat cardiac stress test which showed reversible ischemia. As such patient underwent another left heart catheterization on 10/01 and had another stent placed to the diagonal branch. She did develop acute kidney injury after that likely due to increased contrast burden. She received IV fluids and her renal function has improved. Presently she does have some mild chest pain but what appears to be musculoskeletal in nature. She has ecchymosis at site of neural sheath on the right side but CT scan of the abdomen does not show any extravasation suggestive of pseudoaneurysm or bleed. Her hemoglobin levels have remained stable at her baseline. She is stable to be discharged home. She will need to be on dual antiplatelet therapy for at least 1 year. She will follow up with cardiology for further management. Orders not resulted at time of discharge: Pending orders 09/27/18 10:37 EKG [ECG 12 lead ECG] [ECG] Stat 09/30/18 09:53 NM ferny perf SPECT multi [NM] Routine 10/02/18 12:15 UA w. 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 transplanted heart: habematolel heart Associated angina: with unstable angina Qualified Code(s): I25.110 - Atherosclerotic heart disease of habematolel coronary artery with unstable angina pectoris (5) Mood disorder Priority: Secondary Status: Acute Hospital course: Ms. Thornton is a 58 year old female Patient with a history of coronary artery disease, diabetes, hypertension, solitary kidney status post recent left nephrectomy who was hospitalized here with complaints of chest pain with concerns for unstable angina. Patient was evaluated by cardiology and recommended left heart catheterization. Patient underwent this procedure and had a stent placed to the mid circumflex on 09/26. However she continued to have chest pain and cardiology recommended repeat cardiac stress test which showed reversible ischemia. As such patient underwent another left heart catheterization on 10/01 and had another stent placed to the diagonal branch. She did develop acute kidney injury after that likely due to increased contrast burden. She received IV fluids and her renal function has improved. Presently she does have some mild chest pain but what appears to be musculoskeletal in nature. She has ecchymosis at site of neural sheath on the right side but CT scan of the abdomen does not show any extravasation suggestive of pseudoaneurysm or bleed. Her hemoglobin levels have remained stable at her baseline. She is stable to be discharged home. She will need to be on dual antiplatelet therapy for at least 1 year. She will follow up with cardiology for further management. Discharge discussed with: patient, nurse - Time Spent with Patient Total time spent providing and/or coordinating discharge services: Greater than 30 minutes (35 min) - Discharge Medications Prescriptions: Ranolazine [Ranexa] 1,000 mg PO BID #120 tab.er.12h Ticagrelor [Brilinta] 90 mg PO BID #60 tablet Home Medications: Aspirin Enteric Coated [Aspirin EC] 81 mg PO DAILY 30 Days #30 tablet.dr 12/07/17 [Rx] Atorvastatin [Lipitor] 80 mg PO HS 30 Days #30 tablet 12/07/17 [Rx] Nitroglycerin 0.4 mg SL Q5MIN PRN 30 Days #30 tab.subl 12/07/17 [Rx] Metformin HCl [Glucophage] 1,000 mg PO BID 04/28/18 [History] traZODone [TraZODone] 50 mg PO HS PRN 06/09/18 [History] Docusate [Colace] 100 mg PO BID #60 capsule 06/28/18 [Rx] Citalopram [CeleXA] 20 mg PO DAILY tablet 08/05/18 [Rx] Lisinopril [Zestril] 5 mg PO DAILY #30 tablet 08/05/18 [Rx] Isosorbide MONOnitrate (24 HR) [Imdur] 90 mg PO DAILY #60 tab.er.24h 08/29/18 [Rx] Cyclobenzaprine [Flexeril] 10 mg PO TID PRN #21 tablet 09/07/18 [Rx] Ranolazine [Ranexa] 1,000 mg PO BID #120 tab.er.12h 10/03/18 [Rx] Ticagrelor [Brilinta] 90 mg PO BID #60 tablet 10/03/18 [Rx] Allergies/Adverse Reactions: Allergy/AdvReac Type Severity Reaction Status Date / Time No Known Allergies Allergy Verified 08/01/18 21:14 Date of admission: 09/28/18 20:25 Primary care physician: Hannah Queen Consults: 09/25/18 19:15 Consult to Cardiology [CONS] Routine Comment: Consulting Provider: Violette Leo Reason for Consult: Unstable angina Call Completed: Yes 09/25/18 19:46 Consult to Pastoral Services [CONS] Routine Comment: difficult living situation 09/26/18 14:29 Consult to Cardiac Rehabilitation-Phase1 [CONS] Routine Comment: Reason for Consult: post op PCI Call Completed: Yes Discharging clinician: Leila Chen Anticipated date of discharge: 10/03/18 - Constitutional Vitals: Temp Pulse Resp BP Pulse Ox 98.6 F 79 16 131/83 96 10/03/18 14:31 10/03/18 14:31 10/03/18 14:31 10/03/18 14:31 10/03/18 14:31 General appearance: Present: A&O X 3, pleasant, obese, answers questions appropriately Exam: . - Respiratory Respiratory exam: Present: chest wall tenderness, CTAB. Absent: accessory muscle use, rales, rhonchi, wheezes - Cardiovascular Cardiovascular exam: Present: RRR, +S1, +S2. Absent: diastolic murmur, gallop, rubs, systolic murmur - Extremities Exam Extremities exam: Present: warm, radial pulses palpable and symmetrical. Absent: calf tenderness, cyanotic, pedal edema - Patient Status Disposition: Home, Self-Care Condition: Good Functional capacity at discharge: independent ambulation Overall status at discharge: patient is progressing back to baseline - Discharge Instructions Instructions: Myocardial Infarction (DC), Myocardial Infarction (GEN), Chest Pain (DC), Diabetes Mellitus Type 2 in Adults (DC) Follow Up With: Hannah Queen MD [Primary Care Provider] - (in 1-2 weeks) Ayse Mckeon [Partnered Physician] - (in 1 week) Forms: ED Satisfaction Letter - Diet and Activity Activity: as per the cardiac rehab, increase activity as tolerated Diet: diabetic diet, low salt diet
--- NOTE | 2018-10-03 15:18 | Event Note ---
Date of Encounter: 10/03/18 Time of Encounter: 15:16 - Cardiology Event Note Reconsulted due to concerns of hematoma above right femoral access site. HGB dropped from 11.4 to 9.9--on review of past HGB, tends to fluctuate. CT ABD/Pelvis was ordered--No retroperitoneal hematoma. 2. Mild stranding in the right groin. Small subcutaneous hematoma. 3. Status post left nephrectomy. Cardiology signing off. Reconsult PRN. Will coordinate outpt follow-up.
[2018-10-03] MEDS: traMADol 50 MG TABLET PO PRN (15:47)
== END 2018-10-03 17:05 | disposition home or self-care (01) | DRG 175 ==
LOC: 3ANU 15:34 → EMEROOARM 15:34 → SUATTDRO 18:10 → 3ANU 18:45 → SUATTDRO 09-28 20:25
PROVIDERS: ADMIT Internal Medicine; ATTEND Internal Medicine

== ENCOUNTER 2018-10-17 22:02 | Observation (INO) ==
[2018-10-17] MEDS ORDERED: Aspirin 325 MG TABLET PO ONE (22:23)
[2018-10-17] MEDS ORDERED: Nitroglycerin 0.4 MG TAB.SUBL SL PRN (22:24)
--- NOTE | 2018-10-17 22:29 | Emergency Department Note ---
Disposition Clinical Impression: Acute kidney injury Chest pain Qualifiers: Chest pain type: other chest pain Qualified Code(s): R07.89 - Other chest pain Abdominal pain Qualifiers: Abdominal location: right upper quadrant Qualified Code(s): R10.11 - Right upper quadrant pain Disposition: Still a Patient Condition: Fair Instructions: Chest Pain (ED), Abdominal Pain (ED) Referrals: NONE,PCP [Primary Care Provider] - Forms: ED Satisfaction Letter Time of Disposition: 01:12 Chest Pain HPI - General Chief Complaint: ED Chest Pain Stated Complaint: chest pain Time Seen by Provider: 10/17/18 22:11 Source: EMS Limitations: no limitations Vital Signs Reviewed: Yes Nursing Notes Reviewed: Yes - History of Present Illness HPI Narrative: Patient is a 58-year-old female presenting to [facility] ED for a 6 hour history of left-sided chest pain with radiation down her left arm as well as right upper quadrant abdominal pain. Patient states "my heart and my gallbladder hurt." Patient states that she has had multiple recurrent episodes of similar presentation in that she had a myocardial infarction in November 2017 with 6 stents placed. Patient states that approximately 4 or 4:30 this afternoon patient was eating baked chicken when she developed upper right quadrant pain, she ate a bowl of ice cream afterwards was only intensified the pain. Patient states that time that she developed left sided chest pain. On initial presentation patient is reclining in hospital bed, she is awake, alert, engaged questioning and answers questions appropriately. She states that her chest pain is 9 out of 10 on the pain scale and feels sharp and stabbing in nature "like somebody is whipping me in the chest". Patient states that her right upper quadrant feels like someone is stabbing her. Patient admits to headache, and shortness of breath as well as the symptoms mentioned above, she also admits to nausea/vomiting and upper extremity paresthesias. Patient denies hematuria or hematochezia. Severity scale (1-10): 9 - Related Data Home Medications Medication Instructions Recorded Confirmed Metformin HCl [Glucophage] 1,000 mg PO BID 04/28/18 10/09/18 traZODone [TraZODone] 50 mg PO HS PRN 06/09/18 10/09/18 Carvedilol 12.5 mg PO BID 10/09/18 10/09/18 Ibuprofen 800 mg PO TID PRN 10/09/18 10/09/18 Isosorbide MONOnitrate (24 HR) 60 mg PO DAILY 10/09/18 10/09/18 [Imdur] Previous Rx's Medication Instructions Recorded Aspirin Enteric Coated [Aspirin EC] 81 mg PO DAILY 30 Days #30 12/07/17 tablet. Atorvastatin [Lipitor] 80 mg PO HS 30 Days #30 tablet 12/07/17 Nitroglycerin 0.4 mg SL Q5MIN PRN 30 Days #30 12/07/17 tab.subl Citalopram [CeleXA] 20 mg PO DAILY tablet 08/05/18 Cyclobenzaprine [Flexeril] 10 mg PO TID PRN #21 tablet 09/07/18 Ranolazine [Ranexa] 1,000 mg PO BID #120 tab.er.12h 10/03/18 Ticagrelor [Brilinta] 90 mg PO BID #60 tablet 10/03/18 Allergies Allergy/AdvReac Type Severity Reaction Status Date / Time No Known Allergies Allergy Verified 10/09/18 18:13 All systems ED: reviewed and negative except as stated. 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 Absent: scleral icterus - Neck Neck exam: Present: normal inspection, trachea midline - Chest Chest inspection: Present: normal inspection, symmetric chest wall rise, tenderness - Respiratory Respiratory exam: Present: normal lung sounds bilaterally. Absent: respiratory distress, wheezes, stridor, accessory muscle use, prolonged expiratory phase - Cardiovascular Cardiovascular exam: Present: regular rate, normal rhythm, normal heart sounds, +S1, +S2. Absent: systolic murmur, diastolic murmur, JVD, +S3, +S4 - Abdominal Exam Abdominal exam: Present: soft, tenderness, normal bowel sounds. Absent: distention, guarding, rebound, rigidity Abdominal tenderness: Present: diffuse - Psychiatric Psychiatric exam: Present: flat affect - Skin Skin exam: Present: warm, dry, intact, normal color. Absent: cyanosis, diaphoresis Course Course Narrative: CBC, BMP, hepatic panel, lipase, troponin, EKG/old EKG will be performed in order to further assist potential for underlying pathology. 324 mg of aspirin as well as nitroglycerin really administered for management of patient's symptoms as well as cardiac prophylaxis. - Reevaluation(s) Reevaluation #1: Patient states that chest pain is resolved with 50 g IV fentanyl Patient states right-sided abdominal pain is still 7 out of 10 IV fluid hydration started for KARLENE CT scan abdomen and pelvis without IV or oral contrast will be performed in order to assess for potential underlying pathology. Time: 00:07 Vital Signs Temperature 98.2 F 10/17/18 22:15 Pulse Rate 80 10/17/18 22:15 Respiratory Rate 17 10/17/18 22:15 Blood Pressure 126/84 10/17/18 22:15 O2 Sat by Pulse Oximetry 100 10/17/18 22:15 Temperature 98.2 F 10/17/18 22:15 Pulse Rate 75 10/17/18 22:49 Respiratory Rate 12 10/17/18 22:49 Blood Pressure 128/70 10/17/18 22:49 O2 Sat by Pulse Oximetry 99 10/17/18 22:49 Oxygen Delivery Oxygen Delivery Room Air Chest Pain - MDM Narrative Medical decision making narrative: Laboratory results show acute kidney injury with creatinine of 1.42 Prior ultrasound of the upper right quadrant performed on October 15 shows cholelithiasis without cholecystitis Chest x-ray shows atherosclerotic aortic disease, no acute pulmonary pathology CT abdomen and pelvis without evidence of acute pathology Patient signed over to the care of attending physician Dr. Ilan Ku Patient will be admitted to hospitalist medicine service for further evaluation and management of acute kidney injury in the setting of solitary kidney as well as atypical chest pain. Admission planning discussed at length the patient patient verbalizes her understanding and agreement this plan. Patient is hemodynamically stable time of admission. - Lab Data Lab results reviewed: Yes I reviewed the patient's lab results. Result diagrams: 10/17/18 22:53 10/17/18 22:53 Lab Results 01/10/17/18 10/17/18 Range/Units 22:53 22:53 22:53 WBC 10.1 (4.3-11.1) K/mcL RBC 3.73 L (3.82-4.97) M/mcL Hgb 10.8 L (11.5-15.4) g/dL Hct 34.3 L (35.3-44.9) % MCV 92.0 (83.0-100.0) fL MCH 29.0 (28.0-33.3) pg MCHC 31.5 L (31.6-35.5) g/dL RDW 15.5 H (11.5-14.5) % Plt Count 293 (140-400) K/mcL MPV 10.9 (9.4-12.4) fL Immature Gran % 0.4 (0-4) % Seg Neutrophils % 63.7 % Lymphocytes % 20.4 % Monocytes % 10.4 % Eosinophils % 4.6 % Basophils % 0.5 % Neutrophils # 6.4 (1.6-8.9) K/mcL Lymphocytes # 2.1 (0.6-4.6) K/mcL Monocytes # 1.1 (0.0-1.3) K/mcL Eosinophils # 0.5 (0.0-0.6) K/mcL Basophils # 0.1 (0.0-0.2) K/mcL Sodium (136-145) mEq/L Potassium (3.5-5.1) mEq/L Chloride (98-107) mEq/L Carbon Dioxide (23-29) mEq/L BUN (6-20) mg/dL Creatinine (0.60-1.20) mg/dL Est GFR ( Amer) (> 60) Est GFR (Non-Af Amer) (> 60) BUN/Creatinine Ratio (6-26) Glucose (70-105) mg/dL Calculated Osmolality (280-300) Calcium (8.6-10.3) mg/dL Total Bilirubin 0.3 (0.3-1.0) mg/dL Direct Bilirubin 0.0 (0.0-0.2) mg/dL Indirect Bilirubin 0.3 (0.0-1.2) mg/dL AST 14 (13-39) Units/L ALT 15 (7-52) Units/L Alkaline Phosphatase 49 (34-104) Units/L Troponin I (< 0.04) ng/mL Serum Total Protein 7.2 (6.4-8.9) g/dL Albumin 3.9 (3.5-5.7) g/dL Globulin 3.3 (2.4-3.5) g/dL Albumin/Globulin Ratio 1.2 (1.1-2.2) Lipase 75 (11-82) Units/L 10/17/18 Range/Units 22:53 WBC (4.3-11.1) K/mcL RBC (3.82-4.97) M/mcL Hgb (11.5-15.4) g/dL Hct (35.3-44.9) % MCV (83.0-100.0) fL MCH (28.0-33.3) pg MCHC (31.6-35.5) g/dL RDW (11.5-14.5) % Plt Count (140-400) K/mcL MPV (9.4-12.4) fL Immature Gran % (0-4) % Seg Neutrophils % % Lymphocytes % % Monocytes % % Eosinophils % % Basophils % % Neutrophils # (1.6-8.9) K/mcL Lymphocytes # (0.6-4.6) K/mcL Monocytes # (0.0-1.3) K/mcL Eosinophils # (0.0-0.6) K/mcL Basophils # (0.0-0.2) K/mcL Sodium 134 L (136-145) mEq/L Potassium 4.4 (3.5-5.1) mEq/L Chloride 101 (98-107) mEq/L Carbon Dioxide 22 L (23-29) mEq/L BUN 35 H (6-20) mg/dL Creatinine 1.42 H (0.60-1.20) mg/dL Est GFR ( Amer) 46 L (> 60) Est GFR (Non-Af Amer) 38 L (> 60) BUN/Creatinine Ratio 25 (6-26) Glucose 136 H (70-105) mg/dL Calculated Osmolality 288 (280-300) Calcium 9.8 (8.6-10.3) mg/dL Total Bilirubin (0.3-1.0) mg/dL Direct Bilirubin (0.0-0.2) mg/dL Indirect Bilirubin (0.0-1.2) mg/dL AST (13-39) Units/L ALT (7-52) Units/L Alkaline Phosphatase (34-104) Units/L Troponin I < 0.03 (< 0.04) ng/mL Serum Total Protein (6.4-8.9) g/dL Albumin (3.5-5.7) g/dL Globulin (2.4-3.5) g/dL Albumin/Globulin Ratio (1.1-2.2) Lipase (11-82) Units/L - Radiology Data Radiology results reviewed: Yes I reviewed the patient's radiology results. Chest X-Ray 10/17/18 22:21 IMPRESSION: No acute pulmonary disease. Calcific atherosclerotic disease aorta. D/ / Wilbur Xavier / Wilbur Xavier Interpreting Provider: Wilbur Xavier - EKG Data EKG attestation: Yes I reviewed and interpreted this EKG. EKG results narrative: Patient EKG shows a sinus rhythm with a ventricular rate of 77 bpm, MS interval of 101 ms, QR judaism 92 ms, QT/QTc interval 401/454 ms respectively. There are no significant ST segment elevations, depressions, there are abnormal T-wave inversions noted in lead aVL but is isolated to that lead and is consistent with prior EKG. There are no pathologic Q waves, or any other signs of acute ischemic change. This EKG performed today is generally consistent with prior EKG performed on 10/10/2018. Heart Score - Score History: Moderately Suspicious EKG: Normal Age: 45-65 Risk Factors: Equal/Greater than 3 risk factor or history of atherosclerotic disease Troponin: Less than normal limit HEART Score Total: 4
--- NOTE | 2018-10-17 22:58 | Emergency Department Note ---
Disposition Clinical Impression: Chest pain, Acute kidney injury, Abdominal pain Disposition: Admitted As Inpatient Condition: Fair Instructions: Chest Pain (ED), Abdominal Pain (ED) Referrals: NONE,PCP [Primary Care Provider] - Forms: ED Satisfaction Letter General Adult HPI - General Chief complaint: ED Chest Pain Stated complaint: chest pain Time Seen by Provider: 10/17/18 22:11 Source: EMS Limitations: no limitations - History of Present Illness Pain Scale: 9 - Related Data Home Medications Medication Instructions Recorded Confirmed Metformin HCl [Glucophage] 1,000 mg PO BID 04/28/18 10/09/18 traZODone [TraZODone] 50 mg PO HS PRN 06/09/18 10/09/18 Carvedilol 12.5 mg PO BID 10/09/18 10/09/18 Ibuprofen 800 mg PO TID PRN 10/09/18 10/09/18 Isosorbide MONOnitrate (24 HR) 60 mg PO DAILY 10/09/18 10/09/18 [Imdur] Previous Rx's Medication Instructions Recorded Aspirin Enteric Coated [Aspirin EC] 81 mg PO DAILY 30 Days #30 12/07/17 tablet. Atorvastatin [Lipitor] 80 mg PO HS 30 Days #30 tablet 12/07/17 Nitroglycerin 0.4 mg SL Q5MIN PRN 30 Days #30 12/07/17 tab.subl Citalopram [CeleXA] 20 mg PO DAILY tablet 08/05/18 Cyclobenzaprine [Flexeril] 10 mg PO TID PRN #21 tablet 09/07/18 Ranolazine [Ranexa] 1,000 mg PO BID #120 tab.er.12h 10/03/18 Ticagrelor [Brilinta] 90 mg PO BID #60 tablet 10/03/18 Allergies Allergy/AdvReac Type Severity Reaction Status Date / Time No Known Allergies Allergy Verified 10/09/18 18:13 Past Medical History - Past Medical History Medical history: Reports: coronary artery disease, diabetes, hyperlipidemia, hypertension, myocardial infarction, renal disease Surgical history: Reports: hysterectomy, other Psychiatric history: Reports: no psych history, anxiety 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: no [employer] H[employer]ER history - Social History Smoking Status: Never smoker Smokeless Tobacco Status: No Alcohol use: Reports: none Drug use: Reports: none Physical Exam - General Limitations: no limitations General appearance: alert, in no apparent distress Course Vital Signs Temperature 98.2 F 10/17/18 22:15 Pulse Rate 80 10/17/18 22:15 Respiratory Rate 17 10/17/18 22:15 Blood Pressure 126/84 10/17/18 22:15 O2 Sat by Pulse Oximetry 100 10/17/18 22:15 Temperature 98.2 F 10/17/18 22:15 Pulse Rate 75 10/17/18 22:49 Respiratory Rate 12 10/17/18 22:49 Blood Pressure 128/70 10/17/18 22:49 O2 Sat by Pulse Oximetry 99 10/17/18 22:49 Oxygen Delivery Oxygen Delivery Room Air Medical Decision Making - Lab Data Result diagrams: 10/17/18 22:53 10/17/18 22:53 Lab Results 10/17/18 10/17/18 10/17/18 Range/Units 22:53 22:53 22:53 WBC 10.1 (4.3-11.1) K/mcL RBC 3.73 L (3.82-4.97) M/mcL Hgb 10.8 L (11.5-15.4) g/dL Hct 34.3 L (35.3-44.9) % MCV 92.0 (83.0-100.0) fL MCH 29.0 (28.0-33.3) pg MCHC 31.5 L (31.6-35.5) g/dL RDW 15.5 H (11.5-14.5) % Plt Count 293 (140-400) K/mcL MPV 10.9 (9.4-12.4) fL Immature Gran % 0.4 (0-4) % Seg Neutrophils % 63.7 % Lymphocytes % 20.4 % Monocytes % 10.4 % Eosinophils % 4.6 % Basophils % 0.5 % Neutrophils # 6.4 (1.6-8.9) K/mcL Lymphocytes # 2.1 (0.6-4.6) K/mcL Monocytes # 1.1 (0.0-1.3) K/mcL Eosinophils # 0.5 (0.0-0.6) K/mcL Basophils # 0.1 (0.0-0.2) K/mcL Sodium (136-145) mEq/L Potassium (3.5-5.1) mEq/L Chloride (98-107) mEq/L Carbon Dioxide (23-29) mEq/L BUN (6-20) mg/dL Creatinine (0.60-1.20) mg/dL Est GFR ( Amer) (> 60) Est GFR (Non-Af Amer) (> 60) BUN/Creatinine Ratio (6-26) Glucose (70-105) mg/dL Calculated Osmolality (280-300) Calcium (8.6-10.3) mg/dL Total Bilirubin 0.3 (0.3-1.0) mg/dL Direct Bilirubin 0.0 (0.0-0.2) mg/dL Indirect Bilirubin 0.3 (0.0-1.2) mg/dL AST 14 (13-39) Units/L ALT 15 (7-52) Units/L Alkaline Phosphatase 49 (34-104) Units/L Troponin I (< 0.04) ng/mL Serum Total Protein 7.2 (6.4-8.9) g/dL Albumin 3.9 (3.5-5.7) g/dL Globulin 3.3 (2.4-3.5) g/dL Albumin/Globulin Ratio 1.2 (1.1-2.2) Lipase 75 (11-82) Units/L 10/17/18 Range/Units 22:53 WBC (4.3-11.1) K/mcL RBC (3.82-4.97) M/mcL Hgb (11.5-15.4) g/dL Hct (35.3-44.9) % MCV (83.0-100.0) fL MCH (28.0-33.3) pg MCHC (31.6-35.5) g/dL RDW (11.5-14.5) % Plt Count (140-400) K/mcL MPV (9.4-12.4) fL Immature Gran % (0-4) % Seg Neutrophils % % Lymphocytes % % Monocytes % % Eosinophils % % Basophils % % Neutrophils # (1.6-8.9) K/mcL Lymphocytes # (0.6-4.6) K/mcL Monocytes # (0.0-1.3) K/mcL Eosinophils # (0.0-0.6) K/mcL Basophils # (0.0-0.2) K/mcL Sodium 134 L (136-145) mEq/L Potassium 4.4 (3.5-5.1) mEq/L Chloride 101 (98-107) mEq/L Carbon Dioxide 22 L (23-29) mEq/L BUN 35 H (6-20) mg/dL Creatinine 1.42 H (0.60-1.20) mg/dL Est GFR ( Amer) 46 L (> 60) Est GFR (Non-Af Amer) 38 L (> 60) BUN/Creatinine Ratio 25 (6-26) Glucose 136 H (70-105) mg/dL Calculated Osmolality 288 (280-300) Calcium 9.8 (8.6-10.3) mg/dL Total Bilirubin (0.3-1.0) mg/dL Direct Bilirubin (0.0-0.2) mg/dL Indirect Bilirubin (0.0-1.2) mg/dL AST (13-39) Units/L ALT (7-52) Units/L Alkaline Phosphatase (34-104) Units/L Troponin I < 0.03 (< 0.04) ng/mL Serum Total Protein (6.4-8.9) g/dL Albumin (3.5-5.7) g/dL Globulin (2.4-3.5) g/dL Albumin/Globulin Ratio (1.1-2.2) Lipase (11-82) Units/L Attestation Statement - Attestation Attestation: I examined this patient and my medical decision-making was reviewed with the Resident Physician. I agree with the documented findings, disposition and treatment plan as described except to the extent set forth below. Patient to the ED with a chief complaint of chest pain. Left-sided radiating below her breast. Patient states this feels similar to pain she had a few weeks ago when she had 2 stents put in. On exam she is in no acute distress. She appears uncomfortable. Lungs clear heart regular. Plan. Chronic workup. EKG shows no ST segment changes. Her EKG is unchanged from prior. Pain improved with 2 nitroglycerin by EMS. She is receiving a third at this time. Pain is improved. She still having some lower abdominal pains we will check a CAT scan. IV hydration for her acute kidney injury. CT abdomen does not show any acute surgical abnormalities. Patient will be admitted for further cardiac workup. Chest X-Ray 10/17/18 22:21 IMPRESSION: No acute pulmonary disease. Calcific atherosclerotic disease aorta. D/ / Wilbur Xavier / Wilbur Xavier Interpreting Provider: Wilbur Xavier Abdomen/Pelvis CT 10/18/18 00:06 IMPRESSION: No noncontrast evidence of acute intra-abdominal inflammatory process or fluid collection. D/ / Danae Dowling Cha, MD / Danae Dowling Cha, MD Interpreting Provider: Danae Dowling Cha, MD
[2018-10-17 23:12] LABS: Basophils # 0.1 K/mcL (0.0-0.2); Basophils % 0.5 %; Eosinophils # 0.5 K/mcL (0.0-0.6); Eosinophils % 4.6 %; Hematocrit 34.3 % (35.3-44.9); Hemoglobin 10.8 g/dL (11.5-15.4); Immature Granulocytes % 0.4 % (0-4); Lymphocytes # 2.1 K/mcL (0.6-4.6); Lymphocytes % 20.4 %; Mean Corpuscular HGB Conc 31.5 g/dL (31.6-35.5); Mean Platelet Volume 10.9 fL (9.4-12.4); Monocytes # 1.1 K/mcL (0.0-1.3); Monocytes % 10.4 %; Neutrophils # 6.4 K/mcL (1.6-8.9); Platelet Count 293 K/mcL (140-400); Red Blood Count 3.73 M/mcL (3.82-4.97); Red Cell Distribution Width 15.5 % (11.5-14.5); Segmented Neutrophils % 63.7 %
[2018-10-17 23:31] LABS: Albumin 3.9 g/dL (3.5-5.7); Albumin/Globulin Ratio 1.2 (1.1-2.2); Bilirubin,Indirect 0.3 mg/dL (0.0-1.2); Bilirubin,Total 0.3 mg/dL (0.3-1.0); Globulin 3.3 g/dL (2.4-3.5); Total Protein 7.2 g/dL (6.4-8.9)
[2018-10-17 23:33] LABS: BUN/Creatinine Ratio 25 (6-26); Blood Urea Nitrogen 35 mg/dL (6-20); Calcium 9.8 mg/dL (8.6-10.3); Carbon Dioxide 22 mEq/L (23-29); Chloride 101 mEq/L (98-107); Glucose 136 mg/dL (70-105); Osmolality,Calculated 288 (280-300); Potassium 4.4 mEq/L (3.5-5.1); Sodium 134 mEq/L (136-145); Troponin I < 0.03 ng/mL (< 0.04); eGFR For Non-African Americans 38 (> 60)
[2018-10-17] MEDS ORDERED: *HR* FentaNYL (PF) 100 MCG/2 ML VIAL IVP ONE (23:40)
[2018-10-18] MEDS: 0.9 % Sodium Chloride 1,000 ML IVC SCH ×2 (03:20→14:57)
[2018-10-18] MEDS ORDERED: Naloxone 0.4 MG/ML INJ IVP PRN (04:52)
--- NOTE | 2018-10-18 05:25 | Internal Med History&Physical ---
Date of Encounter: 10/18/18 Time of Encounter: 04:00 Internal Medicine - H&P: HPI Chief complaint: Chest/Abdominal Pain Admitted From: Home Plans for Post Hospital Care: Home History of present illness: Ms. Thornton is a 58 year old female with past medical history significant for CAD with stents x6, diabetes, hyperlipidemia, hypertension, renal disease with only one kidney, cholelithiasis, and anxiety who presents for sharp 10/10 left sided chest pain radiating down her left arm and sharp 10/10 RUQ abdominal pain star ting last night while at rest. Pain was associated with shortness of breath, nausea, vomiting, and diaphoresis. Pain has improved with nitro x3 and fentanyl in ER, pressure also improves RUQ pain. No other alleviating or exacerbating factors noted. ER reported EKG as sinus rhythm with no new changes. Pain continues to improve, denies any current headache, shortness of breath, bowel or bladder changes, dizziness, numbness, or tingling. Most recent bowel movement was yesterday. Had recent heart cath with [facility] with stent placement on 09/26/18 and 10/01/18. PCP ordered gallbladder ultrasound which was completed on 10/15/18 for RUQ pain that demonstrated cholelithiasis. Checks blood sugars regularly at home which she reports as being well controlled averaging in the 120's. Also checks blood pressures regularly and reports systolic averaging in the 120's. Follows regularly with PCP and has next scheduled follow up in November. Also follows regularly with [facility] and has scheduled follow up with both in October. Past Med Surg Social Fam HX - Past Medical History Medical history: coronary artery disease, diabetes, hyperlipidemia, hypertension, myocardial infarction, renal disease Additional medical history: NSTEMI with STENTS November 2017, stents x2 September 2018 Psychiatric history: anxiety - Past Surgical History Surgical History: hysterectomy, other Additional surgical history: left kidney removal (05/10) - Social History Smoking Status: Never smoker Smokeless Tobacco Status: No Alcohol use: none Drug use: none - Family History Father Family Member Ethnicity: Non- Living Status: Hx Family Cardiac Disorders: Yes (IA, HTN, HLD) Mother Family Member Ethnicity: Non- Living Status: Hx Family Cardiac Disorders: Yes (CHF, HTN) Hx Family Endocrine Disorder: Yes (Hypoglycemia) Brother Adopted: Yes Family Member Ethnicity: Non- Living Status: Still Living Sister Family Member Ethnicity: Non- Living Status: Hx Family Cardiac Disorders: Yes Hx Family Respiratory Disorders: No Hx Family Cancer: No Hx Family GI Disorders: No Hx Family Endocrine Disorder: Yes Hx Family Neuromuscular Disorders: No Hx Family Neurologic Disorders: No Hx Family HEENT Disorders: No Hx Family Autoimmune Disorders: No Internal Medicine - H&P: Meds Aspirin Enteric Coated [Aspirin EC] 81 mg PO DAILY 30 Days #30 tablet.dr 12/07/17 [Rx] Atorvastatin [Lipitor] 80 mg PO HS 30 Days #30 tablet 12/07/17 [Rx] Nitroglycerin 0.4 mg SL Q5MIN PRN 30 Days #30 tab.subl 12/07/17 [Rx] Metformin HCl [Glucophage] 1,000 mg PO BID 04/28/18 [History] traZODone [TraZODone] 50 mg PO HS PRN 06/09/18 [History] Citalopram [CeleXA] 20 mg PO DAILY tablet 08/05/18 [Rx] Cyclobenzaprine [Flexeril] 10 mg PO TID PRN #21 tablet 09/07/18 [Rx] Ranolazine [Ranexa] 1,000 mg PO BID #120 tab.er.12h 10/03/18 [Rx] Ticagrelor [Brilinta] 90 mg PO BID #60 tablet 10/03/18 [Rx] Carvedilol 12.5 mg PO BID 10/09/18 [History] Ibuprofen 800 mg PO TID PRN 10/09/18 [History] Isosorbide MONOnitrate (24 HR) [Imdur] 60 mg PO DAILY 10/09/18 [History] Allergy/AdvReac Type Severity Reaction Status Date / Time No Known Allergies Allergy Verified 10/09/18 18:13 All Systems PM: A 10-system review of systems was performed and is negative for pertinent findings except as documented above in the HPI. - Constitutional Vitals: Temp Pulse Resp BP Pulse Ox 97.7 F 66 18 117/72 98 10/18/18 04:09 10/18/18 04:09 10/18/18 04:09 10/18/18 04:09 10/18/18 04:09 Exam: General: Alert and oriented. Skin:Normal color, no rash. Red lesions noted to bilateral lower extremities, patient reports "scarring from mosquito bites". HEENT:Pupils equal, round and reactive. Cardiovascular:Heart sounds distant, no rubs, murmurs or gallops. No JVD. Pulse regular. Lungs:Normal breath sounds, no wheezes or crackles. Abdomen:Soft, no rigidity. RUQ tender upon palpation. No rebound tenderness. Normal bowel sounds. Extremities:No deformity, no edema or tenderness, no joint swelling or clubbing. Neurological:Normal cognition and motor skills. Pulses:Carotid and radial pulses normal +2. Rest of the physical exam is non contributory. Internal Med - H&P Results - Labs CBC & Chem 7: 10/17/18 22:53 10/17/18 22:53 Labs: Short CBC 10/17/18 Range/Units 22:53 WBC 10.1 (4.3-11.1) K/mcL Hgb 10.8 L (11.5-15.4) g/dL Hct 34.3 L (35.3-44.9) % Plt Count 293 (140-400) K/mcL Neutrophils # 6.4 (1.6-8.9) K/mcL BMP 10/17/18 22:53 Sodium 134 L Potassium 4.4 Chloride 101 Carbon Dioxide 22 L BUN 35 H Creatinine 1.42 H Glucose 136 H Calcium 9.8 Cardiac Enzymes 10/17/18 10/18/18 Range/Units 22:53 03:13 Troponin I < 0.03 < 0.03 (< 0.04) ng/mL Liver Function 10/17/18 Range/Units 22:53 Total Bilirubin 0.3 (0.3-1.0) mg/dL Direct Bilirubin 0.0 (0.0-0.2) mg/dL AST 14 (13-39) Units/L ALT 15 (7-52) Units/L Alkaline Phosphatase 49 (34-104) Units/L Albumin 3.9 (3.5-5.7) g/dL - Impressions ITS Impressions Chest X-Ray 10/17/18 22:21 IMPRESSION: No acute pulmonary disease. Calcific atherosclerotic disease aorta. D/ / Wilbur Xavier / Wilbur Xavier Interpreting Provider: Wilbur Xavier Abdomen/Pelvis CT 10/18/18 00:06 IMPRESSION: No noncontrast evidence of acute intra-abdominal inflammatory process or fluid collection. 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 Initial troponins negative, serial troponins ordered. Cardiology consult ordered, will need called in a.m. Qualifiers: Chest pain type: unspecified Qualified Code(s): R07.9 - Chest pain, unspecified (2) RUQ abdominal pain Current Visit: Yes Status: Acute Assessment and plan: Had similar pain previously that had resolved. Abdomen Pelvis CT obtained in ER shows nothing acute. Had cholelithiasis demonstrated on abdominal ultrasound on 10/15/18, will repeat same. (3) Acute on chronic kidney failure Current Visit: Yes Status: Acute Assessment and plan: Nephrology consult ordered, will need called in a.m. Repeat labs ordered for this a.m. MIVF started in ER, will continue same. Avoid nephrotoxins. Qualifiers: Acute renal failure type: unspecified Chronic kidney disease stage: unsp ecified stage Qualified Code(s): N17.9 - Acute kidney failure, unspecified; N18.9 - Chronic kidney disease, unspecified (4) Decreased hemoglobin Current Visit: Yes Status: Chronic Assessment and plan: Appears at baseline. Repeat labs ordered for this a.m. (5) Diabetes mellitus Current Visit: Yes Status: Chronic Assessment and plan: Hold home medications. Accucheck q6. Sliding scale insulin ordered. 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 Qualifiers: Hypertension type: unspecified Qualified Code(s): I10 - Essential (primary) hypertension (7) Hyperlipidemia Current Visit: Yes Status: Chronic Assessment and plan: Continue home medications once verified. Qualifiers: Hyperlipidemia type: unspecified Qualified Code(s): E78.5 - Hyperlipidemia, unspecified (8) Anxiety Current Visit: Yes Status: Chronic Assessment and plan: Continue home medications once verified. - Time Spent With Patient Total time spent is greater than 50% in coordination of care (as documented) at patient's floor/unit and/or counseling patient:
[2018-10-18] MEDS ORDERED: *HR* FentaNYL (PF) 100 MCG/2 ML VIAL IVP ONE (05:43)
[2018-10-18] MEDS ORDERED: D5% in Water 1,000 ML IVC PRN (05:57)
[2018-10-18] MEDS ORDERED: *HR* Dextrose 50 % in Water (Syg) 50 ML SYRINGE IVP PRN (05:57)
[2018-10-18] MEDS ORDERED: Dextrose Gel 15 GM/37.5 ML TUBE PO PRN ×2 (05:57)
[2018-10-18] MEDS: Insulin LISPRO 300 UNITS/3 ML VIAL SQ SCH ×3 (07:04→17:03)
[2018-10-18 09:30] LABS: Basophils # 0.1 K/mcL (0.0-0.2); Basophils % 0.6 %; Eosinophils # 0.3 K/mcL (0.0-0.6); Eosinophils % 3.5 %; Hematocrit 32.6 % (35.3-44.9); Hemoglobin 10.2 g/dL (11.5-15.4); Immature Granulocytes % 0.4 % (0-4); Lymphocytes # 1.6 K/mcL (0.6-4.6); Lymphocytes % 16.3 %; Mean Corpuscular HGB Conc 31.3 g/dL (31.6-35.5); Mean Corpuscular Hemoglobin 28.7 pg (28.0-33.3); Mean Corpuscular Volume 91.6 fL (83.0-100.0); Mean Platelet Volume 10.7 fL (9.4-12.4); Monocytes # 0.9 K/mcL (0.0-1.3); Monocytes % 9.3 %; Neutrophils # 6.7 K/mcL (1.6-8.9); Platelet Count 240 K/mcL (140-400); Red Blood Count 3.56 M/mcL (3.82-4.97); Red Cell Distribution Width 15.7 % (11.5-14.5); Segmented Neutrophils % 69.9 %
[2018-10-18 09:49] LABS: Albumin 3.6 g/dL (3.5-5.7); Albumin/Globulin Ratio 1.1 (1.1-2.2); Bilirubin,Total 0.3 mg/dL (0.3-1.0); Globulin 3.3 g/dL (2.4-3.5); Potassium 4.9 mEq/L (3.5-5.1); Total Protein 6.9 g/dL (6.4-8.9)
--- NOTE | 2018-10-18 11:55 | Cardiology Consult Note ---
Addendum entered and electronically signed by Margareth Tarango MD 10/18/18 13:40: I have personally performed a face to face evaluation on this patient. I have reviewed and agree with the care plan. History and Exam by me shows: Noncardiac chest pain- primarily RUQ pain. Evaluate for noncardiac etiology of symptoms. Continue current medical therapy for CAD. Addendum entered and electronically signed by Dallin Leach CNP 10/18/18 12:05: Original Note: Date of Encounter: 10/18/18 Time of Encounter: 11:30 Assessment and Plan (1) Chest pain Current Visit: Yes Status: Acute Patient presents with atypical chest pain symptoms that occur after eating and v omiting. Cardiac workup is benign. Troponins are negative. EKG with no acute ST or T- wave changes. It is noted that she was recently found to have cholelithiasis and she reports recurrent gallbladder attacks. No further cardiac workup indicated at this time. Recommend continue workup and treatment of noncardiac causes of pain including cholelithiasis. Continue current medical management. Qualifiers: Chest pain type: unspecified Qualified Code(s): R07.9 - Chest pain, unspecified (2) CAD (coronary artery disease) Current Visit: No Status: Chronic H/o CAD and recent PCI to the mLCx artery and diagonal. LAD stents seen to be patent. [facility] 08/04/18: There is moderate 2V CAD. EF 65%.mild-moderate non-obstructive CAD, medical therapy recommended. [facility] 09/26/18: s/p successful PTCA/CAROLA in the mLCx [facility] 10/01/18: s/p successful PTCA/CAROLA in the diagonal; patent LAD stents; otherwise no significant CAD No indication for further testing this admission. Continue aspirin, Plavix, statin, beta linda. Continue ranexa. Discussed with the patient, we can increase Imdur but this may not help her pain if it is coming from her gallbladder. Outpatient follow-up will be coordinated. Qualifiers: Coronary Disease-Associated Artery/Lesion type: unspecified vessel or lesion type [place] vs. transplanted heart: [place] heart Associated angina: angina presence unspecified Qualified Code(s): I25.10 - Atherosclerotic heart disease of [place] coronary artery without angina pectoris Discussion w patient/family: The assessment and plan as outlined above was discussed with the patient and/or family members who expressed understanding and agreement. All questions were answered. Thank you for involving us in the care of your patient. Please call with any questions. History of Present Illness Consult date: 10/18/18 Requesting physician: Fausto Ramos Consult reason: Chest pain s/p recent PCI Chief complaint: Right flank pain and left breast pain. History of present illness: Ms. Thornton is a 58 year old female Ms. Thornton is a 58 year old female with PMHx significant of CAD s/p PCI 09/26/18 and 10/01/18, DMII, HTN, morbid obesity, and left nephrectomy who presents to the ED with complaints of left-sided chest discomfort that started at rest yesterday evening. She states the pain started after she had a "gallbladder attack". She tried to eat ice cream and developed r ight flank pain, nausea, and vomiting. States she has been dealing with gallbladder issues for a while. SHe was recently found to have gallbladder stones on gallbladder US 10/15/18. CT of abdomen did not show and acute finding in the ED. Cardiology asked to evaluate for chest pain. She was recently evaluated for atypical chest pain 09/30/18. Medical management recommended at that time. ED evaluation included troponin negative and ECG without ST/T wave abnormalities. Prior CV testing: TTE 12/05/17: EF 60%, mild LVDD, mild MR, no PH, normal wall motion [facility] 12/05/17: EF 40%; s/p successful PTCA/CAROLA to [place], mid and distal LAD and diagonal; otherwise moderate CAD (LCx 60%). Limited TTE 05/2018: LVEF 55-60%. Increased LV wall thickness - measurements not optimally obtained (moderate by Echo 12/05/2017). There is a small pericardial effusion present. There is no echocardiographic evidence on this limited study for tamponade. [facility] 08/04/18: There is moderate 2V CAD. EF 65%.mild-moderate non-obstructive CAD, medical therapy recommended. [facility] 09/26/18: s/p successful PTCA/CAROLA in the mLCx [facility] 10/01/18: s/p successful PTCA/CAROLA in the diagonal; patent LAD stents; otherwise no significant CAD Past Med Surg Social Fam HX - Past Medical History Medical history: coronary artery disease, diabetes, hyperlipidemia, hypertension, myocardial infarction, renal disease Additional medical history: NSTEMI with STENTS November 2017, stents x2 September 2018 Psychiatric history: anxiety - Past Surgical History Surgical History: hysterectomy, other Additional surgical history: left kidney removal (05/10) - Social History Smoking Status: Never smoker Smokeless Tobacco Status: No Alcohol use: none Drug use: none - Family History Father Family Member Ethnicity: Non- Living Status: Hx Family Cardiac Disorders: Yes (MT, HTN, HLD) Mother Family Member Ethnicity: Non- Living Status: Hx Family Cardiac Disorders: Yes (CHF, HTN) Hx Family Endocrine Disorder: Yes (Hypoglycemia) Brother Adopted: Yes Family Member Ethnicity: Non- Living Status: Still Living Sister Family Member Ethnicity: Non- Living Status: Hx Family Cardiac Disorders: Yes Hx Family Respiratory Disorders: No Hx Family Cancer: No Hx Family GI Disorders: No Hx Family Endocrine Disorder: Yes Hx Family Neuromuscular Disorders: No Hx Family Neurologic Disorders: No Hx Family HEENT Disorders: No Hx Family Autoimmune Disorders: No Medications and Allergies Aspirin Enteric Coated [Aspirin EC] 81 mg PO DAILY 30 Days #30 tablet.dr 11/21 04/09 [Rx] Atorvastatin [Lipitor] 80 mg PO HS 30 Days #30 tablet 12/07/17 [Rx] Nitroglycerin 0.4 mg SL Q5MIN PRN 30 Days #30 tab.subl 12/07/17 [Rx] Metformin HCl [Glucophage] 1,000 mg PO BID 04/28/18 [History] traZODone [TraZODone] 50 mg PO HS PRN 06/09/18 [History] Citalopram [CeleXA] 20 mg PO DAILY tablet 08/05/18 [Rx] Cyclobenzaprine [Flexeril] 10 mg PO TID PRN #21 tablet 09/07/18 [Rx] Ranolazine [Ranexa] 1,000 mg PO BID #120 tab.er.12h 10/03/18 [Rx] Ticagrelor [Brilinta] 90 mg PO BID #60 tablet 10/03/18 [Rx] Carvedilol 12.5 mg PO BID 10/09/18 [History] Ibuprofen 800 mg PO TID PRN 10/09/18 [History] Isosorbide MONOnitrate (24 HR) [Imdur] 60 mg PO DAILY 10/09/18 [History] Allergy/AdvReac Type Severity Reaction Status Date / Time No Known Allergies Allergy Verified 10/09/18 18:13 All Systems Review: The remainder of the systems were reviewed and are negative Physical Examination Vital Signs, Last 4 Hours Temp Pulse Resp BP Pulse Ox 10/18/18 11:14 98.1 F 65 17 144/84 97 General: Conversant, No Apparent Distress HEENT: Atraumatic, Normocephaly, Mucus Membranes Moist Neck: No JVD, Normal carotid pulses Cardiac: Reg Rate and Rhythm, Normal S1 and S2, No Murmur Lungs: Normal Breath Sounds, No Wheeze, Rales, Rhonchi Neuro: Alert and responsive, No focal deficits noted Abdomen: Soft, Non-Tender Skin: No rashes noted on visualized skin Musculoskeletal: Other (Reproducible right upper abdominal pain.) Extremities: No Clubbing, No Cyanosis, No Edema, Normal Pulses Results 10/18/18 08:54 10/18/18 08:54 Lab Results 10/17/18 10/17/18 10/17/18 22:53 22:53 22:53 WBC 10.1 Hgb 10.8 L Hct 34.3 L Plt Count 293 Sodium Potassium Chloride Carbon Dioxide BUN Creatinine Glucose Calcium Total Bilirubin 0.3 AST 14 ALT 15 Alkaline Phosphatase 49 Troponin I Lipase 75 10/17/18 10/18/18 10/18/18 22:53 03:13 08:54 WBC 9.5 Hgb 10.2 L Hct 32.6 L Plt Count 240 Sodium 134 L Potassium 4.4 Chloride 101 Carbon Dioxide 22 L BUN 35 H Creatinine 1.42 H Glucose 136 H Calcium 9.8 Total Bilirubin AST ALT Alkaline Phosphatase Troponin I < 0.03 < 0.03 Lipase 10/18/18 10/18/18 08:54 08:54 WBC Hgb Hct Plt Count Sodium 134 L Potassium 4.9 Chloride 104 Carbon Dioxide 23 BUN 40 H Creatinine 1.49 H Glucose 139 H Calcium 9.0 Total Bilirubin 0.3 AST 13 ALT 13 Alkaline Phosphatase 48 Troponin I < 0.03 Lipase - Imaging and Cardiology Echo: report reviewed Cardiac cath: report reviewed - EKG Interpretation EKG results cardiology: personally reviewed Consult Discharge Plan - Plan Referrals: Hannah Queen MD [Partnered Physician] - 11/25/18 3:30 pm Chris Mendoza MD [Partnered Physician] - 10/28/18 11:15 am Ayse Mckeon [Partnered Physician] - 10/29/18 11:50 am
[2018-10-18] MEDS ORDERED: traZODone 50 MG TABLET PO PRN (15:20)
[2018-10-18] MEDS ORDERED: Nitroglycerin 0.4 MG TAB.SUBL SL PRN (15:20)
[2018-10-18] MEDS: traMADol 50 MG TABLET PO PRN (15:40)
[2018-10-18] MEDS ORDERED: *HR* HYDROcodone/Acet 5/325 mg TABLET PO ONE (20:03)
[2018-10-18] MEDS: Ranolazine 500 MG TAB.ER.12H PO SCH (21:04)
[2018-10-18] MEDS: *HR* Ticagrelor 90 MG TABLET PO SCH (21:04)
[2018-10-19] MEDS: Insulin LISPRO 300 UNITS/3 ML VIAL SQ SCH ×4 (00:46→16:34)
[2018-10-19] MEDS: 0.9 % Sodium Chloride 1,000 ML IVC SCH ×2 (01:12→14:00)
[2018-10-19 05:48] LABS: Calcium 8.9 mg/dL (8.6-10.3); Potassium 4.5 mEq/L (3.5-5.1)
[2018-10-19] MEDS: traMADol 50 MG TABLET PO PRN ×3 (05:56→19:44)
--- NOTE | 2018-10-19 09:27 | Internal Med Progress Note ---
Hospitalist Progress Note - Encounter Date of Encounter: 10/19/18 Time of Encounter: 09:25 - Subjective Interval History: Patient seen and examined in the room, she has no chest pain at this point, but does endorse right upper quadrant abdominal pain, she denies fever, chills, or night sweats. No nausea, vomiting, or diarrhea. - Exam Vitals: Temp Pulse Resp BP Pulse Ox 97.6 F 72 16 145/84 99 10/19/18 07:36 10/19/18 07:36 10/19/18 07:36 10/19/18 07:36 10/19/18 07:36 Exam: General: Alert and oriented. Skin:Normal color, no rash. Red lesions noted to bilateral lower extremities, patient reports "scarring from mosquito bites". HEENT:Pupils equal, round and reactive. Cardiovascular:Heart sounds distant, no rubs, murmurs or gallops. No JVD. Pulse regular. Lungs:Normal breath sounds, no wheezes or crackles. Abdomen:Soft, no rigidity. RUQ tender upon palpation. No rebound tenderness. Normal bowel sounds. Extremities:No deformity, no edema or tenderness, no joint swelling or clubbing. Neurological:Normal cognition and motor skills. Pulses:Carotid and radial pulses normal +2. Rest of the physical exam is non contributory. - Assessment and Plan (1) Chest pain Current Visit: Yes Status: Acute Assessment and Plan: 10/18 Continuous director new product. Initial troponins negative, serial troponins ordered. Cardiology consult ordered, will need called in a.m. 10/19 Cardiology consulted, recommended medical management. Continue current treatment with aspirin, Plavix, and other listed medications. (2) RUQ abdominal pain Current Visit: Yes Status: Acute Assessment and Plan: 10/18 Had similar pain previously that had resolved. Abdomen Pelvis CT obtained in ER shows nothing acute. Had cholelithiasis demonstrated on abdominal ultrasound on 10/15/18, will repeat same. 10/19 Patient stated she wanted to gallbladder removed because it really bothered her. General surgery was consulted, appreciate help. (3) Acute on chronic kidney failure Current Visit: Yes Status: Acute Assessment and Plan: 10/08 Nephrology consult ordered, will need called in a.m. Repeat labs ordered for this a.m. MIVF started in ER, will continue same. Avoid nephrotoxins. 10/19 By reviewing the labs, it seems the renal injury happened after the patient had several left heart catheter. It is likely contrast induced nephropathy, unclear whether the renal injury has already become chronic or still recoverable. Nephrology consulted. Continue IV fluid. (4) Decreased hemoglobin Current Visit: Yes Status: Chronic Assessment and Plan: Appears at baseline. Repeat labs ordered for this a.m. (5) Diabetes mellitus Current Visit: Yes Status: Chronic Assessment and Plan: Hold home medications. Sliding scale insulin ordered. (6) Hypertension Current Visit: No Status: Chronic Assessment and Plan: Continue home medications. (7) Hyperlipidemia Current Visit: No Status: Chronic Assessment and Plan: Continue home medications. (8) Anxiety Current Visit: No Status: Chronic Assessment and Plan: Continue home medications. DVT Prophylaxis: SCDs. - Time Spent with Patient Total time spent is greater than 50% in coordination of care (as documented) at patient's floor/unit and/or counseling patient: Greater than 35 minutes Plan of Care Discussed with: patient Internal Medicine: Result - Labs CBC & Chem 7: 10/18/18 08:54 10/19/18 05:09 Labs: Short CBC 10/18/18 Range/Units 08:54 WBC 9.5 (4.3-11.1) K/mcL Hgb 10.2 L (11.5-15.4) g/dL Hct 32.6 L (35.3-44.9) % Plt Count 240 (140-400) K/mcL Neutrophils # 6.7 (1.6-8.9) K/mcL BMP 10/18/18 10/19/18 08:54 05:09 Sodium 134 L 135 L Potassium 4.9 4.5 Chloride 104 106 Carbon Dioxide 23 23 BUN 40 H 33 H Creatinine 1.49 H 1.35 H Glucose 139 H 103 Calcium 9.0 8.9 Cardiac Enzymes 10/18/18 Range/Units 08:54 Troponin I < 0.03 (< 0.04) ng/mL Liver Function 10/18/18 Range/Units 08:54 Total Bilirubin 0.3 (0.3-1.0) mg/dL AST 13 (13-39) Units/L ALT 13 (7-52) Units/L Alkaline Phosphatase 48 (34-104) Units/L Albumin 3.6 (3.5-5.7) g/dL Consult Discharge Plan - Plan Referrals: Hannah Queen MD [Partnered Physician] - 11/25/18 3:30 pm Chris Mendoza MD [Partnered Physician] - 10/28/18 11:15 am Ayse Mckeon [Partnered Physician] - 10/29/18 11:50 am (1) Chest pain Qualifiers: Chest pain type: unspecified Qualified Code(s): R07.9 - Chest pain, unspecified (3) Acute on chronic kidney failure Qualifiers: Acute renal failure type: unspecified Chronic kidney disease stage: unspecified stage Qualified Code(s): N17.9 - Acute kidney failure, unspecified; N18.9 - Chronic kidney disease, unspecified (5) Diabetes mellitus Qualifiers: Diabetes mellitus type: type 2 Diabetes mellitus usp insulin use: unspecified usp insulin use status Diabetes mellitus complication status: without complication Qualified Code(s): E11.9 - Type 2 diabetes mellitus without complications (6) Hypertension Qualifiers: Hypertension type: unspecified Qualified Code(s): I10 - Essential (primary) hypertension (7) Hyperlipidemia Qualifiers: Hyperlipidemia type: unspecified Qualified Code(s): E78.5 - Hyperlipidemia, unspecified
[2018-10-19] MEDS: Aspirin Enteric Coated 81 MG Tablet PO SCH (09:50)
[2018-10-19] MEDS: *HR* Ticagrelor 90 MG TABLET PO SCH ×2 (09:50→19:43)
[2018-10-19] MEDS: Isosorbide MONOnitrate (24 HR) 60 MG TAB.ER.24H PO SCH (09:50)
[2018-10-19] MEDS: Ranolazine 500 MG TAB.ER.12H PO SCH ×2 (09:50→19:43)
--- NOTE | 2018-10-19 13:16 | General Surgery Consult Note ---
Date of Encounter: 10/19/18 Time of Encounter: 13:12 Assessment and Plan (1) RUQ abdominal pain Current Visit: Yes Status: Acute 58F with significant cardiac history with recent CAROLA x 2 placed ~ 3 weeks ago now with biliary colic; also noted small mesenteric mass along left mid abdomen although she does have an indication for cholecystectomy, with her recent CAROLA and current antiplatelet therapy, I do not think it perla to operate now; bland diet, even if just liquids plan to see in the office will discuss patient with cardiology to figure out best timing no acute surgery History of Present Illness Consult date: 10/19/18 Reason for consult: abdominal pain History of present illness: Ms. Thronton is a 58 year old female PMHx significant for CAD s/p PCI 09/26/18 and 10/01/18, currently with CAROLA and on brilenta, DMII, HTN, morbid obesity, and left nephrectomy who presents to the ED with complaints of atypical symptoms of biliary colic. She reports left sided chest discomfort. She tried to eat ice cream and developed pain localized to her R side, non radiating, with no identifiable alleviating factors. Symptoms are worse with meals and is assocaited with nausea and vomiting. her current cardiac work up is negative. her imaging, however, does demonstrate cholelithiasis. Past Med Surg Social Fam HX - Past Medical History Medical history: coronary artery disease, diabetes, hyperlipidemia, hypertension, myocardial infarction, renal disease Additional medical history: NSTEMI with STENTS November 2017, stents x2 September 2018 Psychiatric history: anxiety - Past Surgical History Surgical History: hysterectomy, other Additional surgical history: left kidney removal (05/10) - Social History Smoking Status: Never smoker Smokeless Tobacco Status: No Alcohol use: none Drug use: none - Family History Father Family Member Ethnicity: Non- Living Status: Hx Family Cardiac Disorders: Yes (DE, HTN, HLD) Mother Family Member Ethnicity: Non- Living Status: Hx Family Cardiac Disorders: Yes (CHF, HTN) Hx Family Endocrine Disorder: Yes (Hypoglycemia) Brother Adopted: Yes Family Member Ethnicity: Non- Living Status: Still Living Sister Family Member Ethnicity: Non- Living Status: Hx Family Cardiac Disorders: Yes Hx Family Respiratory Disorders: No Hx Family Cancer: No Hx Family GI Disorders: No Hx Family Endocrine Disorder: Yes Hx Family Neuromuscular Disorders: No Hx Family Neurologic Disorders: No Hx Family HEENT Disorders: No Hx Family Autoimmune Disorders: No Medications and Allergies Aspirin Enteric Coated [Aspirin EC] 81 mg PO DAILY 30 Days #30 tablet.dr 12/07/17 [Rx] Nitroglycerin 0.4 mg SL Q5MIN PRN 30 Days #30 tab.subl 12/07/17 [Rx] Metformin HCl [Glucophage] 1,000 mg PO BID 04/28/18 [History] traZODone [TraZODone] 50 mg PO HS PRN 06/09/18 [History] Citalopram [CeleXA] 20 mg PO DAILY tablet 08/05/18 [Rx] Cyclobenzaprine [Flexeril] 10 mg PO TID PRN #21 tablet 09/07/18 [Rx] Ranolazine [Ranexa] 1,000 mg PO BID #120 tab.er.12h 10/03/18 [Rx] Ticagrelor [Brilinta] 90 mg PO BID #60 tablet 10/03/18 [Rx] Carvedilol 12.5 mg PO BID 10/09/18 [History] Ibuprofen 800 mg PO TID PRN 10/09/18 [History] Isosorbide MONOnitrate (24 HR) [Imdur] 60 mg PO DAILY 10/09/18 [History] Atorvastatin Calcium 80 mg PO DAILY 10/18/18 [History] Lisinopril [Zestril] 5 mg PO DAILY 10/18/18 [History] Allergy/AdvReac Type Severity Reaction Status Date / Time No Known Allergies Allergy Verified 10/18/18 15:09 Review of Systems All systems PM: 12 point ROS negative besides HPI findings General Surgery Exam Initial Vital Signs Temp Pulse Resp BP Pulse Ox 98.2 F 80 17 126/84 100 10/17/18 22:15 10/17/18 22:15 10/17/18 22:15 10/17/18 22:15 10/17/18 22:15 - General physical appearance no distress - Eyes other (no scleral icterus), normal ocular movement - ENT normocephalic - Neck trachea midline, no lymphadectomy - Respiratory normal expansion, normal respiratory effort - Cardiovascular Cardiovascular exam: Present: RRR - Abdomen Abdomen general surgery: Present: soft, tender ((-)perry's sign; non peritoneal) - Integumentary Integumentary general surgery: Present: warm and dry, no abnormal pigmentation - Neurologic Present: CN 2-12 grossly intact - Musculoskeletal Present: normal posture - Psychiatric Psychiatric general surgery: Present: A&Ox3 Exam Initial Vital Signs Temp Pulse Resp BP Pulse Ox 98.2 F 80 17 126/84 100 10/17/18 22:15 10/17/18 22:15 10/17/18 22:15 10/17/18 22:15 10/17/18 22:15 Results - Labs 10/18/18 08:54 10/19/18 05:09 Abnormal lab results RBC 3.56 M/mcL (3.82-4.97) L 10/18/18 08:54 Hgb 10.2 g/dL (11.5-15.4) L 10/18/18 08:54 Hct 32.6 % (35.3-44.9) L 10/18/18 08:54 MCHC 31.3 g/dL (31.6-35.5) L 10/18/18 08:54 RDW 15.7 % (11.5-14.5) H 10/18/18 08:54 Sodium 135 mEq/L (136-145) L 10/19/18 05:09 BUN 33 mg/dL (6-20) H 10/19/18 05:09 Creatinine 1.35 mg/dL (0.60-1.20) H 10/19/18 05:09 Est GFR ( Amer) 49 (> 60) L 10/19/18 05:09 Est GFR (Non-Af Amer) 40 (> 60) L 10/19/18 05:09 Diabetes panel 10/19/18 Range/Units 05:09 Sodium 135 L (136-145) mEq/L Potassium 4.5 (3.5-5.1) mEq/L Chloride 106 (98-107) mEq/L Carbon Dioxide 23 (23-29) mEq/L BUN 33 H (6-20) mg/dL Creatinine 1.35 H (0.60-1.20) mg/dL Glucose 103 (70-105) mg/dL Calcium 8.9 (8.6-10.3) mg/dL Calcium panel 10/19/18 Range/Units 05:09 Calcium 8.9 (8.6-10.3) mg/dL Pituitary panel 10/19/18 Range/Units 05:09 Sodium 135 L (136-145) mEq/L Potassium 4.5 (3.5-5.1) mEq/L Chloride 106 (98-107) mEq/L Carbon Dioxide 23 (23-29) mEq/L BUN 33 H (6-20) mg/dL Creatinine 1.35 H (0.60-1.20) mg/dL Glucose 103 (70-105) mg/dL Calcium 8.9 (8.6-10.3) mg/dL Adrenal panel 10/19/18 Range/Units 05:09 Sodium 135 L (136-145) mEq/L Potassium 4.5 (3.5-5.1) mEq/L Chloride 106 (98-107) mEq/L Carbon Dioxide 23 (23-29) mEq/L BUN 33 H (6-20) mg/dL Creatinine 1.35 H (0.60-1.20) mg/dL Glucose 103 (70-105) mg/dL Calcium 8.9 (8.6-10.3) mg/dL All other labs normal. - Imaging CT scan - abdomen: report reviewed, image reviewed CT scan - pelvis: report reviewed, image reviewed Consult Discharge Plan - Plan Referrals: Hannah Queen MD [Partnered Physician] - 11/25/18 3:30 pm Chris Mendoza MD [Partnered Physician] - 10/28/18 11:15 am Ayse Mckeon [Partnered Physician] - 10/29/18 11:50 am
--- NOTE | 2018-10-19 14:26 | Nephrology Consult Note ---
Date of Encounter: 10/19/18 Time of Encounter: 14:00 Assessment and Plan (1) Acute kidney injury Current Visit: Yes Status: Acute Elevated SCr in the setting of 2 consecutive LHC with PCI suspect contrast induced nephropathy Agree with continued supportive care including IVF for now Usually would hold ACEi in this setting but given improvement already, will monitor Will check urine studies Will check CK and uric acid levels Avoid nephrotoxins if possible CT abd/pelvis showed no abnormality to right remaining kidney, no further imaging needed (2) CKD (chronic kidney disease) stage 3, GFR 30-59 ml/min Current Visit: Yes Status: Acute (3) Solitary kidney Current Visit: No Status: Chronic History of Present Illness - Reason for Consult Consult date: 10/19/18 Acute Kidney Injury, Chronic Kidney Disease Requesting physician: Vita Moseley - History of Present Illness 58 y o female with PMH of CAD s/p stents x6 with PCI on 09/26/18 and 10/01/18, DM, HTN and s/p solitary kidney with stage 3 CKD after LNx admitted 10/18/18 with chest and RUQ pain deemed noncardiac by cardiology. Noted with cholelithiasis with surgery consulted. Renal consulted for elevated SCr from baseline peaking at 1.49, GFR 36 yesterday and down to 1.35, GFR 40 today. Baseline Scr noted around 0.9 to 1.0 with GFR in the 50s but appeared to worsen 10/01/18 after exposure to iv contrast with LHC. Past Med Surg Social Fam HX - Past Medical History Medical history: coronary artery disease, diabetes, hyperlipidemia, hypertension, myocardial infarction, renal disease Additional medical history: NSTEMI with STENTS November 2017, stents x2 September 2018 Psychiatric history: anxiety - Past Surgical History Surgical History: hysterectomy, other Additional surgical history: left kidney removal (05/10) - Social History Smoking Status: Never smoker Smokeless Tobacco Status: No Alcohol use: none Drug use: none - Family History Father Family Member Ethnicity: Non- Living Status: Hx Family Cardiac Disorders: Yes (DE, HTN, HLD) Mother Family Member Ethnicity: Non- Living Status: Hx Family Cardiac Disorders: Yes (CHF, HTN) Hx Family Endocrine Disorder: Yes (Hypoglycemia) Brother Adopted: Yes Family Member Ethnicity: Non- Living Status: Still Living Sister Family Member Ethnicity: Non- Living Status: Hx Family Cardiac Disorders: Yes Hx Family Respiratory Disorders: No Hx Family Cancer: No Hx Family GI Disorders: No Hx Family Endocrine Disorder: Yes Hx Family Neuromuscular Disorders: No Hx Family Neurologic Disorders: No Hx Family HEENT Disorders: No Hx Family Autoimmune Disorders: No Medications and Allergies Aspirin Enteric Coated [Aspirin EC] 81 mg PO DAILY 30 Days #30 tablet.dr 12/07/17 [Rx] Nitroglycerin 0.4 mg SL Q5MIN PRN 30 Days #30 tab.subl 12/07/17 [Rx] Metformin HCl [Glucophage] 1,000 mg PO BID 04/28/18 [History] traZODone [TraZODone] 50 mg PO HS PRN 06/09/18 [History] Citalopram [CeleXA] 20 mg PO DAILY tablet 08/05/18 [Rx] Cyclobenzaprine [Flexeril] 10 mg PO TID PRN #21 tablet 09/07/18 [Rx] Ranolazine [Ranexa] 1,000 mg PO BID #120 tab.er.12h 10/03/18 [Rx] Ticagrelor [Brilinta] 90 mg PO BID #60 tablet 10/03/18 [Rx] Carvedilol 12.5 mg PO BID 10/09/18 [History] Ibuprofen 800 mg PO TID PRN 10/09/18 [History] Isosorbide MONOnitrate (24 HR) [Imdur] 60 mg PO DAILY 10/09/18 [History] Atorvastatin Calcium 80 mg PO DAILY 10/18/18 [History] Lisinopril [Zestril] 5 mg PO DAILY 10/18/18 [History] Allergy/AdvReac Type Severity Reaction Status Date / Time No Known Allergies Allergy Verified 10/18/18 15:09 Exam - Vital Signs Vital signs: Initial Vital Signs Temp Pulse Resp BP Pulse Ox 98.2 F 80 17 126/84 100 10/17/18 22:15 10/17/18 22:15 10/17/18 22:15 10/17/18 22:15 10/17/18 22:15 Vital Signs - Last 8 Hours Temp Pulse Resp BP Pulse Ox 10/19/18 11:08 97.7 F 71 16 121/77 97 10/19/18 07:36 97.6 F 72 16 145/84 99 Intake and Output 10/18/18 10/19/18 10/19/18 23:59 07:59 15:59 Intake Total 1000 / 1000 1360 / 1360 Output Total 500 / 500 700 / 700 1700 / 1700 Balance -500 / -500 300 / 300 -340 / -340 Intake: IV Fluids 1000 / 1000 1000 / 1000 0.9 % Sodium Chloride 1,000 ML 1000 / 1000 1000 / 1000 @ 100 mls/hr IVC .Q10H TOÑO Rx#: [id number] Oral 360 / 360 Output: Urine 500 / 500 700 / 700 1700 / 1700 Other: Meal Lunch Percent of Meal Consumed 90% Weight 106 kg Blood Glucose* 150 92 146 Patient Weight 10/19/18 23:59 Weight 106 kg Results - Lab Results 10/18/18 08:54 10/19/18 05:09 Most recent lab results Calcium 8.9 mg/dL (8.6-10.3) 10/19/18 05:09 Consult Discharge Plan - Plan Referrals: Hannah Queen MD [Partnered Physician] - 11/25/18 3:30 pm Chris Mendoza MD [Partnered Physician] - 10/28/18 11:15 am Ayse Mckeon [Partnered Physician] - 10/29/18 11:50 am
[2018-10-19 15:33] LABS: Uric Acid 7.4 mg/dL (2.3-7.6)
--- NOTE | 2018-10-19 15:46 | Electrocardiograph Report ---
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
[2018-10-19 17:36] LABS: Bilirubin,Urine Negative (Negative); Blood,Urine Negative (Negative); Clarity,Urine Clear (Clear); Color,Urine Yellow (Yellow); Glucose,Urine (UA) Normal (Normal); Ketones,Urine Negative (Negative); Leukocyte Esterase,Urine Small (Negative); Nitrite,Urine Negative (Negative); PH,Urine 5.5 pH Units (5.0-8.0); Protein,Urine Negative (Neg-Trace); Specific Gravity,Urine 1.019 (1.010-1.025); Urobilinogen,Urine Normal (Normal)
[2018-10-19 17:38] LABS: Bacteria,Urine None Seen per hpf (None-Few); Hyaline Casts,Urine None Seen per lpf (None-Few); Squamous Epithelial Cell,Urine Many per lpf (None-Few)
[2018-10-19 17:45] LABS: Sodium, Urine 106.2 mEq/L
[2018-10-20] MEDS: 0.9 % Sodium Chloride 1,000 ML IVC SCH (02:43)
[2018-10-20] MEDS: Insulin LISPRO 300 UNITS/3 ML VIAL SQ SCH ×3 (02:44→12:59)
[2018-10-20] MEDS: traMADol 50 MG TABLET PO PRN ×2 (02:49→08:34)
[2018-10-20 06:51] LABS: Calcium 8.8 mg/dL (8.6-10.3); Potassium 4.7 mEq/L (3.5-5.1)
[2018-10-20] MEDS: Ranolazine 500 MG TAB.ER.12H PO SCH (08:33)
[2018-10-20] MEDS: Aspirin Enteric Coated 81 MG Tablet PO SCH (08:33)
[2018-10-20] MEDS: *HR* Ticagrelor 90 MG TABLET PO SCH (08:34)
[2018-10-20] MEDS: Isosorbide MONOnitrate (24 HR) 60 MG TAB.ER.24H PO SCH (08:34)
--- NOTE | 2018-10-20 10:50 | General Surgery Progress Note ---
Date of Encounter: 10/20/18 Time of Encounter: 10:45 - Assessment and Plan (1) RUQ abdominal pain Current Visit: Yes Status: Acute 58F with recent history of CAD s/p PCI 09/26/18 and 10/01/18 with placement of CAROLA currently on Brlenta, DMII, HTN, morbid obesity, and left nephrectomy who has atypical symptoms of gallbladder disease; imaging studies suggest symptomatic cholelithiasis (no evidence of gallbladder wall thickening nor pericholecystic fluid); in light of her recent placement of CAROLA, I would not recommend surgery for a non emergency non cardiac pathology before 6 months. if her pathology worsens, then I would still recommend at least three months. cont with lifestyle changes: bland diet, exercise as tolerated pain control will reassess in clinic for planning on management of her gallbladder; Subjective Patient reports: no new complaints, afebrile, other (adamant about having surgery while inpatient) Objective Vital Signs - Last 8 Hours Temp Pulse Resp BP Pulse Ox 10/20/18 08:01 97.6 F 75 14 172/92 99 10/20/18 04:54 97.8 F 64 16 137/85 97 Intake and Output 10/19/18 10/20/18 10/20/18 23:59 07:59 15:59 Intake Total 240 / 240 1000 / 1000 480 / 480 Output Total 550 / 550 900 / 900 Balance -310 / -310 100 / 100 480 / 480 Intake: IV Fluids 1000 / 1000 0.9 % Sodium Chloride 1,000 ML 1000 / 1000 @ 100 mls/hr IVC .Q10H TOÑO Rx#: [id number] Oral 240 / 240 480 / 480 Output: Urine 550 / 550 900 / 900 Other: Meal Breakfast Percent of Meal Consumed 75% 100% Weight 105.8 kg Blood Glucose* 177 93 Patient Weight 10/20/18 23:59 Weight 105.8 kg - General physical appearance no distress - Eyes other (no scleral icterus) - Respiratory normal expansion, normal respiratory effort - Cardiovascular Cardiovascular exam: Present: RRR - Abdomen Abdomen: Present: soft, tender ((-)perry's sign) - Neurologic CN 2-12 grossly intact - Musculoskeletal normal posture - Psychiatric oriented to time, oriented to person, oriented to place - Labs 10/18/18 08:54 10/20/18 05:10 Diabetes panel 10/20/18 Range/Units 05:10 Sodium 135 L (136-145) mEq/L Potassium 4.7 (3.5-5.1) mEq/L Chloride 106 (98-107) mEq/L Carbon Dioxide 24 (23-29) mEq/L BUN 29 H (6-20) mg/dL Creatinine 1.24 H (0.60-1.20) mg/dL Glucose 97 (70-105) mg/dL Calcium 8.8 (8.6-10.3) mg/dL Calcium panel 10/20/18 Range/Units 05:10 Calcium 8.8 (8.6-10.3) mg/dL Pituitary panel 10/20/18 Range/Units 05:10 Sodium 135 L (136-145) mEq/L Potassium 4.7 (3.5-5.1) mEq/L Chloride 106 (98-107) mEq/L Carbon Dioxide 24 (23-29) mEq/L BUN 29 H (6-20) mg/dL Creatinine 1.24 H (0.60-1.20) mg/dL Glucose 97 (70-105) mg/dL Calcium 8.8 (8.6-10.3) mg/dL Adrenal panel 10/20/18 Range/Units 05:10 Sodium 135 L (136-145) mEq/L Potassium 4.7 (3.5-5.1) mEq/L Chloride 106 (98-107) mEq/L Carbon Dioxide 24 (23-29) mEq/L BUN 29 H (6-20) mg/dL Creatinine 1.24 H (0.60-1.20) mg/dL Glucose 97 (70-105) mg/dL Calcium 8.8 (8.6-10.3) mg/dL Consult Discharge Plan - Plan Referrals: Hannah Queen MD [Partnered Physician] - 11/21/18 12:30 pm Chris Mendoza MD [Partnered Physician] - 10/28/18 11:15 am Ayse Mckeon [Partnered Physician] - 10/29/18 11:50 am
--- NOTE | 2018-10-20 11:27 | Internal Med Progress Note ---
Hospitalist Progress Note - Encounter Date of Encounter: 10/20/18 Time of Encounter: 11: - Subjective Interval History: Patient seen and examined in the room, she has no chest pain at this point, but does endorse right upper quadrant abdominal pain, she insisted surgical intervention and stated that she cannot put up with the pain. she denies fever, chills, or night sweats. No nausea, vomiting, or diarrhea. - Exam Vitals: Temp Pulse Resp BP Pulse Ox 98.3 F 68 14 143/78 98 10/20/18 11:15 10/20/18 11:15 10/20/18 11:15 10/20/18 11:15 10/20/18 11:15 Exam: General: Alert and oriented. Skin:Normal color, no rash. Red lesions noted to bilateral lower extremities, patient reports "scarring from mosquito bites". HEENT:Pupils equal, round and reactive. Cardiovascular:Heart sounds distant, no rubs, murmurs or gallops. No JVD. Pulse regular. Lungs:Normal breath sounds, no wheezes or crackles. Abdomen:Soft, no rigidity. RUQ tender upon palpation. No rebound tenderness. Normal bowel sounds. Extremities:No deformity, no edema or tenderness, no joint swelling or clubbing. Neurological:Normal cognition and motor skills. Pulses:Carotid and radial pulses normal +2. Rest of the physical exam is non contributory. - Assessment and Plan (1) Chest pain Current Visit: Yes Status: Acute Assessment and Plan: 10/[address] monitor. Initial troponins negative, serial troponins ordered. Cardiology consult ordered, will need called in a.m. 10/19 Cardiology consulted, recommended medical management. Continue current treatment with aspirin, Brillinta, and other listed medications. 10/20 No chest pain. continue current treatment. (2) RUQ abdominal pain Current Visit: Yes Status: Acute Assessment and Plan: 10/18 Had similar pain previously that had resolved. Abdomen Pelvis CT obtained in ER shows nothing acute. Had cholelithiasis demonstrated on abdominal ultrasound on 10/15/18, will repeat same. 10/19 Patient stated she wanted to gallbladder removed because it really bothered her. General surgery was consulted, appreciate help. 10/[address] Zhou again, Pt does not meet the criteria for emergent surgery, given her recent multiple LHC and stent placement, the risk of cardiac complication is high. Dr. Zhou recommended at least 3 month after the [facility]. I reiterated this to patient. We will continue pain control. Plan to dc in the morning. (3) Acute on chronic kidney failure Current Visit: Yes Status: Acute Assessment and Plan: 10/08 Nephrology consult ordered, will need called in a.m. Repeat labs ordered for this a.m. MIVF started in ER, will continue same. Avoid nephrotoxins. 10/19 By reviewing the labs, it seems the renal injury happened after the patient had several left heart catheter. It is likely contrast induced nephropathy, unclear whether the renal injury has already become chronic or still recoverable. Nephrology consulted. Continue IV fluid. 10/20 Renal following, appreciate help. Cr improving after IVF. (4) Decreased hemoglobin Current Visit: No Status: Chronic Assessment and Plan: Appears at baseline. Repeat labs ordered for this a.m. (5) Diabetes mellitus Current Visit: No Status: Chronic Assessment and Plan: Hold home medications. Sliding scale insulin ordered. (6) Hypertension Current Visit: No Status: Chronic Assessment and Plan: Continue home medications. (7) Hyperlipidemia Current Visit: No Status: Chronic Assessment and Plan: Continue home medications. (8) Anxiety Current Visit: No Status: Chronic Assessment and Plan: Continue home medications. - Time Spent with Patient Total time spent is greater than 50% in coordination of care (as documented) at patient's floor/unit and/or counseling patient: Greater than 35 minutes Plan of Care Discussed with: patient Internal Medicine: Result - Labs CBC & Chem 7: 10/18/18 08:54 10/20/18 05:10 Labs: BMP 10/20/18 05:10 Sodium 135 L Potassium 4.7 Chloride 106 Carbon Dioxide 24 BUN 29 H Creatinine 1.24 H Glucose 97 Calcium 8.8 Urine 10/19/18 Range/Units 16:40 Urine Color Yellow (Yellow) Urine Clarity Clear (Clear) Urine pH 5.5 (5.0-8.0) pH Units Ur Specific [place] 1.019 (1.010-1.025) Urine Protein Negative (Neg-Trace) mg/dL Urine Glucose (UA) Normal (Normal) mg/dL Consult Discharge Plan - Plan Referrals: Hannah Queen MD [Partnered Physician] - 11/21/18 12:30 pm Chris Mendoza MD [Partnered Physician] - 10/28/18 11:15 am Ayse Mckeon [Partnered Physician] - 10/29/18 11:50 am (1) Chest pain Qualifiers: Chest pain type: unspecified Qualified Code(s): R07.9 - Chest pain, unspecified (3) Acute on chronic kidney failure Qualifiers: Acute renal failure type: unspecified Chronic kidney disease stage: unspecified stage Qualified Code(s): N17.9 - Acute kidney failure, unspecified; N18.9 - Chronic kidney disease, unspecified (5) Diabetes mellitus Qualifiers: Diabetes mellitus type: type 2 Diabetes mellitus manager long term care insulin use: unspecified manager long term care insulin use status Diabetes mellitus complication status: without complication Qualified Code(s): E11.9 - Type 2 diabetes mellitus without complications (6) Hypertension Qualifiers: Hypertension type: unspecified Qualified Code(s): I10 - Essential (primary) hypertension (7) Hyperlipidemia Qualifiers: Hyperlipidemia type: unspecified Qualified Code(s): E78.5 - Hyperlipidemia, unspecified
--- NOTE | 2018-10-20 13:14 | Nephrology Progress Note ---
Date of Encounter: 10/20/18 Time of Encounter: 13:10 - Assessment and Plan (1) Acute kidney injury Current Visit: Yes Status: Acute Elevated SCr in the setting of 2 consecutive [facility] with PCI suspect contrast induced nephropathy Scr 1.24 and GFR 44 both improved. Baseline GFR 55-60 outpatient. Agree with continued supportive care including IVF for now. Avoid nephrotoxins and renal dose. BMP 7 days after discharge, F/U with [facility] in 4-6 weeks. Nephrology will sign off at this time, please reconsult as needed. (2) Solitary kidney Current Visit: No Status: Chronic Stable, H/x of. (3) CKD (chronic kidney disease) stage 3, GFR 30-59 ml/min Current Visit: Yes Status: Acute Baseline. Subjective Principal diagnosis: chest pain Interval history: Pt seen and examined. Admits to being in a lot of pain with her abdomen. Rates pain 5/10. She affirms it is her gallbladder "acting up". Denies nausea, vomiting, or diarrhea. Objective - Vital Signs Vital signs: Vital Signs Temp Pulse Resp BP Pulse Ox 10/20/18 11:15 98.3 F 68 14 143/78 98 10/20/18 08:01 97.6 F 75 14 172/92 99 10/20/18 04:54 97.8 F 64 16 137/85 97 10/20/18 00:06 97.8 F 65 16 121/76 98 10/19/18 19:11 97.8 F 67 16 159/85 90 10/19/18 15:37 95.0 F L 74 15 114/74 96 Intake and Output 10/19/18 10/20/18 10/20/18 23:59 07:59 15:59 Intake Total 240 / 240 1000 / 1000 480 / 480 Output Total 550 / 550 900 / 900 Balance -310 / -310 100 / 100 480 / 480 Intake: IV Fluids 1000 / 1000 0.9 % Sodium Chloride 1,000 ML 1000 / 1000 @ 100 mls/hr IVC .Q10H TOÑO Rx#: [id number] Oral 240 / 240 480 / 480 Output: Urine 550 / 550 900 / 900 Other: Meal Breakfast Percent of Meal Consumed 75% 100% # Voids 650 Weight 105.8 kg Blood Glucose* 177 93 176 Patient Weight 10/20/18 23:59 Weight 105.8 kg - General Appearance General appearance: Present: well-developed, well-nourished EENT: Present: ATNC, hearing intact, vision intact Neck: Present: supple Respiratory: Present: clear Cardiology: Present: no edema, normal S1, normal S2 Gastrointestinal: Present: normoactive bowel sounds, no tenderness, no guarding Integumentary: Present: no rash, warm and dry Neurologic: Present: alert and oriented x3 Musculoskeletal: Present: no deformities, no erythema Psychiatric: Present: mood/affect appropriate, cooperative, pressured speech - Lab 10/18/18 08:54 10/20/18 05:10 Most recent lab results Calcium 8.8 mg/dL (8.6-10.3) 10/20/18 05:10 Urine Creatinine 61 mg/dL 10/19/18 16:40 Urine Sodium 106.2 mEq/L 10/19/18 16:40 Consult Discharge Plan - Plan Referrals: Hannah Queen MD [Partnered Physician] - 11/21/18 12:30 pm Chris Mendoza MD [Partnered Physician] - 10/28/18 11:15 am Ayse Mckeon [Partnered Physician] - 10/29/18 11:50 am
--- NOTE | 2018-10-20 13:51 | Event Note ---
Date of Encounter: 10/20/18 Time of Encounter: 14:46 - Cardiology Event Note Discussed with Ignacia Encarnacion surgery DONOR RELATIONS MANAGER. Patient is wanting to pursue elective cholecystectomy due to gall bladder pain and cholelithiasis. She will need to be on DAPT with asa and brilinta uninterrupted for min one year and ideally should avoid elective surgeries for six months s/p PCI with [facility]. Please call with further questions. Thanks
--- NOTE | 2018-10-20 15:26 | Discharge Summary ---
- NOTES TO OUTPATIENT PROVIDER Notes to Outpatient Provider: f/u with PCP and cardiology within 2 weeks. F/u with general surgery within 1 month. f/u with nephrology within one week. Orders not resulted at time of discharge: Pending orders 10/21/18 04:00 BMP [Basic Metabolic Panel] AM 0400 Complete Blood Count w/o Diff [HEME] AM 0400 Date of Encounter: 10/20/18 Time of Encounter: 15:24 - Discharge Diagnosis (1) Chest pain Priority: Primary Status: Acute Qualifiers: Chest pain type: unspecified Qualified Code(s): R07.9 - Chest pain, unspecified (2) RUQ abdominal pain Priority: Primary Status: Acute (3) Acute on chronic kidney failure Priority: Primary Status: Acute Qualifiers: Acute renal failure type: unspecified Chronic kidney disease stage: unspecified stage Qualified Code(s): N17.9 - Acute kidney failure, unspecified; N18.9 - Chronic kidney disease, unspecified (4) Decreased hemoglobin Priority: Secondary Status: Chronic (5) Diabetes mellitus Priority: Primary Status: Chronic Qualifiers: Diabetes mellitus type: type 2 Diabetes mellitus usp insulin use: unspecified usp insulin use status Diabetes mellitus complication status: without complication Qualified Code(s): E11.9 - Type 2 diabetes mellitus without complications (6) Hypertension Priority: Secondary Status: Chronic Qualifiers: Hypertension type: unspecified Qualified Code(s): I10 - Essential (primary) hypertension (7) Hyperlipidemia Priority: Secondary Status: Chronic Qualifiers: Hyperlipidemia type: unspecified Qualified Code(s): E78.5 - Hyperlipidemia, unspecified (8) Anxiety Priority: Secondary Status: Chronic (9) Cholelithiases Priority: Primary Status: Acute Qualifiers: Cholelithiasis location: gallbladder Cholecystitis presence: without cholecystitis Biliary obstruction: without biliary obstruction Qualified Code(s): K80.20 - Calculus of gallbladder without cholecystitis without obstruction Hospital course: Ms. Thornton is a 58 year old female with past medical history significant for CAD with stents x6, diabetes, hyperlipidemia, hypertension, renal disease with only one kidney, cholelithiasis, and anxiety who presents for sharp 10/10 left sided chest pain radiating down her left arm and sharp 10/10 RUQ abdominal pain starting last night while at rest. Pain was associated with shortness of breath, nausea, vomiting, and diaphoresis. Pain has improved with nitro x3 and fentanyl in ER, pressure also improves RUQ pain. No other alleviating or exacerbating factors noted. ER reported EKG as sinus rhythm with no new changes. Pain continues to improve, denies any current headache, shortness of breath, bowel or bladder changes, dizziness, numbness, or tingling. Most recent bowel movement was yesterday. Had recent heart cath with [facility] with stent placement on 09/26/18 and 10/01/18. PCP ordered gallbladder ultrasound which was completed on 10/15/18 for RUQ pain that demonstrated cholelithiasis. Checks blood sugars regularly at home which she reports as being well controlled averaging in the 120's. Also checks blood pressures regularly and reports systolic averaging in the 120's. Follows regularly with PCP and has next scheduled follow up in November. Also follows regularly with [facility] and has scheduled follow up with both in October. Serial troponin was negative. EKG has no acute ST-T changes. Cardiology was consulted and medical management was recommended. Pt recent abdominal US showed cholelithiasis without acute cholecystitis. General surgery was consulted, recommended outpatient surgery after pt takes dual anti-platelet therapy for at least 6 months. Nephrology was consulted and serum creatinine improved with IVF. Pt will be discharged home. She will f/u with cardiology, general surgery, nephrology, and PCP as scheduled. Discharge discussed with: patient Time spent discussing smoking cessation with patient: more than 10 minutes - Time Spent with Patient Total time spent providing and/or coordinating discharge services: 45 mins. Greater than 30 minutes - Discharge Medications Prescriptions: Oxycodone HCl/Acetaminophen [Percocet 5-325 mg Tablet] 1 each PO TID PRN 5 Days #15 tablet PRN Reason: Severe Pain Home Medications: Aspirin Enteric Coated [Aspirin EC] 81 mg PO DAILY 30 Days #30 tablet.dr 12/07/17 [Rx] Nitroglycerin 0.4 mg SL Q5MIN PRN 30 Days #30 tab.subl 12/07/17 [Rx] Metformin HCl [Glucophage] 1,000 mg PO BID 04/28/18 [History] traZODone [TraZODone] 50 mg PO HS PRN 06/09/18 [History] Citalopram [CeleXA] 20 mg PO DAILY tablet 08/05/18 [Rx] Cyclobenzaprine [Flexeril] 10 mg PO TID PRN #21 tablet 09/07/18 [Rx] Ranolazine [Ranexa] 1,000 mg PO BID #120 tab.er.12h 10/03/18 [Rx] Ticagrelor [Brilinta] 90 mg PO BID #60 tablet 10/03/18 [Rx] Carvedilol 12.5 mg PO BID 10/09/18 [History] Isosorbide MONOnitrate (24 HR) [Imdur] 60 mg PO DAILY 10/09/18 [History] Atorvastatin Calcium 80 mg PO DAILY 10/18/18 [History] Lisinopril [Zestril] 5 mg PO DAILY 10/18/18 [History] Oxycodone HCl/Acetaminophen [Percocet 5-325 mg Tablet] 1 each PO TID PRN 5 Days #15 tablet 10/20/18 [Rx] Allergies/Adverse Reactions: Allergy/AdvReac Type Severity Reaction Status Date / Time No Known Allergies Allergy Verified 10/18/18 15:09 Date of admission: 10/18/18 02:23 Primary care physician: PCP NONE Consults: 10/18/18 08:19 Consult to Cardiology [CONS] Routine Comment: Consulting Provider: Cardiology Felipa Reason for Consult: CP Call Completed: Yes 10/19/18 08:23 Consult to Nephrology [CONS] Routine Consulting Provider: Kidney Felipa/RAFAEL/DONAL/VENKATA Reason for Consult: KARLENE Call Completed: Yes 10/19/18 09:03 Consult to Surgery [CONS] Routine Consulting Provider: Surgery [facility] Surgical Reason for Consult: gall stone Call Completed: Yes Anticipated date of discharge: 10/20/18 - Constitutional Vitals: Temp Pulse Resp BP Pulse Ox 98.3 F 68 14 143/78 98 10/20/18 11:15 10/20/18 11:15 10/20/18 11:15 10/20/18 11:15 10/20/18 11:15 General appearance: Present: cooperative, A&O X 3, answers questions appropriately Exam: PHYSICAL EXAMINATION: GENERAL APPEARANCE: The patient is alert, oriented and in no acute distress. HEENT: Head is normocephalic. The sinuses are nontender. Pupils are equal and reactive. The nares are patent. Oropharynx clear without lesions. NECK: Supple without lymphadenopathy. HEART: Regular rate and rhythm. LUNGS: No crackles or wheezes are heard. ABDOMEN: Soft, nontender, nondistended with good bowel sounds heard. Inguinal area is normal. EXTREMITIES: Without cyanosis, clubbing or edema. NEUROLOGICAL: Gross nonfocal. SKIN: Warm and dry without any rash. - Patient Status Disposition: Home, Self-Care Condition: Fair Functional capacity at discharge: independent ambulation Overall status at discharge: patient is progressing back to baseline - Discharge Instructions Follow Up With: Hannah Queen MD [Partnered Physician] - 11/21/18 12:30 pm Chris Mendoza MD [Partnered Physician] - 10/28/18 11:15 am Ayse Mckeon [Partnered Physician] - 10/29/18 11:50 am - Diet and Activity Activity: increase activity as tolerated Diet: low fat, low cholesterol, low salt diet
[2018-10-20 16:35] VITALS: BP 157/91
== END 2018-10-20 16:55 | disposition home or self-care (01) ==
LOC: 3BNU 22:02 → EMEROOARM 22:02 → 3BNU 10-18 02:00
PROVIDERS: ADMIT Family Medicine; ATTEND Family Medicine

== ENCOUNTER 2018-12-23 15:10 | Observation (INO) ==
[2018-12-23 15:47] LABS: Basophils # 0.1 K/mcL (0.0-0.2); Basophils % 0.7 %; Eosinophils # 0.2 K/mcL (0.0-0.6); Eosinophils % 2.4 %; Hematocrit 33.1 % (35.3-44.9); Hemoglobin 10.5 g/dL (11.5-15.4); Immature Granulocytes % 0.3 % (0-4); Lymphocytes # 1.6 K/mcL (0.6-4.6); Lymphocytes % 18.7 %; Mean Corpuscular HGB Conc 31.7 g/dL (31.6-35.5); Mean Corpuscular Hemoglobin 30.5 pg (28.0-33.3); Mean Corpuscular Volume 96.2 fL (83.0-100.0); Mean Platelet Volume 10.8 fL (9.4-12.4); Monocytes # 0.7 K/mcL (0.0-1.3); Monocytes % 8.5 %; Platelet Count 290 K/mcL (140-400); Red Blood Count 3.44 M/mcL (3.82-4.97); Red Cell Distribution Width 15.4 % (11.5-14.5); Segmented Neutrophils % 69.4 %
[2018-12-23 16:00] LABS: INR 1.1; Prothrombin Time 12.3 Seconds (9.4-12.1)
[2018-12-23 16:03] LABS: Activated Partial Thrombo Time 26.1 Seconds (26.0-36.0)
[2018-12-23 16:06] LABS: Calcium 9.8 mg/dL (8.6-10.3); Potassium 4.7 mEq/L (3.5-5.1)
[2018-12-23 16:07] LABS: Troponin I 0.03 ng/mL (< 0.04)
--- NOTE | 2018-12-23 16:12 | Emergency Department Note ---
Disposition Clinical Impression: Chest pain Qualifiers: Chest pain type: unspecified Qualified Code(s): R07.9 - Chest pain, unspecified Disposition: Admitted As Inpatient Condition: Good Time of Disposition: 17:03 General Adult HPI - General Chief complaint: ED Chest Pain Stated complaint: Chest Pain Time Seen by Provider: 12/23/18 15:52 Source: patient, family Limitations: no limitations Nursing Notes Reviewed: Yes Vital Signs Reviewed: Yes - History of Present Illness HPI Narrative: This is a 58-year-old female with a past medical history significant for CVA approximately 2 weeks ago, history of CAD status post 6 different stenting procedures currently managed with aspirin and Brilinta who presents today complaining of chest pain that began approximately 2 hours prior to arrival. Patient states that she was at vascular surgeon's office, when she began to feel midsternal chest pain radiated 8-8.5/10. Pain described is tight, heavy, and radiating to the left arm up to the elbow, neck and jaw. Associated with headache, blurry vision, lightheadedness/dizziness, nausea, weakness, fatigue, lethargy. Notes that she also noticed that her blood pressure was elevated. Patient was seen here approximate 2 weeks ago diagnosed with CVA, and was hospi talized for 5 days and discharged with medical management. She was following up with vascular surgeon due to right carotid artery stenosis 80-99%, and right carotid artery aneurysm. She normally takes Ranexa at home for chest pain, but does not not take any today. She does note that she is on and taking her dual antiplatelet therapy she otherwise denies fevers/chills, or respiratory symptoms, palpitations, difficulty breathing or wheezing, abdominal pain, vomiting, diarrhea, dysuria. Pt Subjective Complaint: Chest Pain Onset (ago): hour(s) (2 hours ago) Location: chest Radiation: neck, extremity Pain Severity: severe Pain Scale: 9 Quality: aching, crushing, dull, constant Consistency: constant Associated symptoms: Reports: chest pain, headaches, malaise, nausea/vomiting, weakness. Denies: confusion, cough, diaphoresis, fever/chills, loss of appetite, rash, syncope Treatments Prior to Arrival: none - Related Data Home Medications Medication Instructions Recorded Confirmed RX: Metformin HCl [Glucophage] 1,000 mg PO BIDWM 04/28/18 12/11/18 RX: Carvedilol 12.5 mg PO BIDWM 10/09/18 12/11/18 RX: Atorvastatin Calcium 80 mg PO HS 10/18/18 12/11/18 RX: Lisinopril [Zestril] 5 mg PO DAILY 10/18/18 12/11/18 RX: Aspirin 81 mg PO DAILY 11/04/18 12/11/18 RX: Docusate Sodium [Dok] 100 mg PO BID 11/04/18 12/11/18 RX: Isosorbide MONOnitrate (24 HR) 30 mg PO DAILY 12/11/18 12/11/18 [Imdur] RX: Isosorbide MONOnitrate (24 HR) 60 mg PO DAILY 12/11/18 12/11/18 [Imdur] Previous Rx's Medication Instructions Recorded RX: Nitroglycerin 0.4 mg SL Q5MIN PRN 30 Days #30 12/07/17 tab.subl RX: Citalopram [CeleXA] 20 mg PO DAILY tablet 08/05/18 RX: Ranolazine [Ranexa] 1,000 mg PO BID #120 tab.er.12h 10/03/18 RX: Ticagrelor [Brilinta] 90 mg PO BID #60 tablet 10/03/18 RX: Cyclobenzaprine [Flexeril] 10 mg PO BID PRN #20 tablet 12/09/18 Allergies Allergy/AdvReac Type Severity Reaction Status Date / Time No Known Allergies Allergy Verified 12/11/18 14:41 All systems ED: reviewed and negative except as stated. Constitutional: Reports: weakness. Denies: fever, chills Eyes: Reports: vision change (Blurry vision) ENT ED: Denies: hearing loss Cardiovascular: Reports: chest pain. Denies: palpitations, syncope Respiratory: Denies: cough, dyspnea, wheezes Gastrointestinal: Reports: nausea. Denies: abdominal pain, vomiting Genitourinary: Denies: dysuria Musculoskeletal: Reports: neck pain. Denies: back pain Integumentary: Denies: rash Neurological: Reports: headache Psychiatric: Denies: anxiety Endocrine: Reports: fatigue Past Medical History - Past Medical History Attestation: Yes The following information was validated with the patient. 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 - Social History Smoking Status: Never smoker Smokeless Tobacco Status: No Alcohol use: Reports: none Drug use: Reports: none Physical Exam - General Limitations: no limitations General appearance: alert, in no apparent distress - Head Head exam: atraumatic, normocephalic, normal inspection - Eye Eye exam: Present: normal appearance, PERRL, EOMI - ENT ENT exam: normal exam, normal oropharynx, mucous membranes moist - Neck Neck exam: Present: normal inspection - Chest Chest inspection: Present: normal inspection - Respiratory Respiratory exam: Present: normal lung sounds bilaterally - Cardiovascular Cardiovascular exam: Present: regular rate, normal rhythm, systolic murmur (2/6 systolic murmur at right parasternal border), +S1, +S2 - Abdominal Exam Abdominal exam: Present: soft, Non-Tender, normal bowel sounds. Absent: distention, guarding, rebound, rigidity - Extremities Exam Extremities exam: Present: normal inspection, full ROM, normal capillary refill. Absent: tenderness - Back Exam Back exam: Present: normal inspection - Neurological Exam Neurological exam: Present: alert, oriented X3, CN II-XII intact - Expanded Neurological Exam Patient oriented to: Present: person, place, time Speech: Present: fluid speech Cranial nerves: EOM function (II, III, IV, ): Normal, facial sensation (V): Abnormal Left (Decrease on the left), facial palsy (VII): Normal, spinal accessory function (XI): Normal, tongue deviation (XII): Normal Cerebellar function: finger to nose: Normal Motor strength - LUE: 4/5 Motor strength - RUE: 5/5 Motor strength - LLE: 4/5 Motor strength - RLE: 5/5 Sensory exam upper extremity: light touch: Normal Sensory exam lower extremity: light touch: Normal Coma Scale Eye Opening: Spontaneous Coma Scale Motor Response: Obeys Commands Coma Scale Verbal Response: Oriented Coma Scale Total: 15 - Psychiatric Psychiatric exam: Present: normal affect, normal mood - Skin Skin exam: Present: warm, dry, intact, normal color Course - Reevaluation(s) Reevaluation #1: Patient seen and examined at bedside. CBC and BMP essentially benign. Chest x- ray showed no acute process. Troponin was negative. EKG showed normal sinus rhythm with no acute ST segment changes. Time: 16:56 Vital Signs Temperature 97.6 F 12/23/18 15:12 Pulse Rate 71 12/23/18 15:12 Respiratory Rate 19 12/23/18 15:12 Blood Pressure 186/94 12/23/18 15:12 O2 Sat by Pulse Oximetry 100 12/23/18 15:12 Temperature 98.4 F 12/23/18 22:56 Pulse Rate 62 12/23/18 22:56 Respiratory Rate 18 12/23/18 22:56 Blood Pressure 133/83 12/23/18 22:56 O2 Sat by Pulse Oximetry 96 12/23/18 22:56 Oxygen Delivery Oxygen Delivery Room Air Medical Decision Making - MDM Narrative Medical decision making narrative: 58-year-old female with past medical history significant for CVA, CAD status post multiple stenting procedures presents with chest pain today. Patient states the pain began while she was at doctor's appointment. Described as midsternal chest pain. Radiates to her arm and neck. Patient has extensive history of CAD and recent CVA 2 weeks ago. Troponin and EKG were negative. However symptoms are suggestive of atypical chest pain. Spoke with Dr. Rivas who accepted patient. We will will admit for further management of chest pain. - Medical Records Medical records reviewed: Yes I reviewed the patient's medical records. - Lab Data Lab results reviewed: Yes I reviewed the patient's lab results. Result diagrams: 12/23/18 15:28 12/23/18 15:28 Lab Results 12/23/18 12/23/18 12/23/18 Range/Units 15:28 15:28 15:28 WBC 8.6 (4.3-11.1) K/mcL RBC 3.44 L (3.82-4.97) M/mcL Hgb 10.5 L (11.5-15.4) g/dL Hct 33.1 L (35.3-44.9) % MCV 96.2 (83.0-100.0) fL MCH 30.5 (28.0-33.3) pg MCHC 31.7 (31.6-35.5) g/dL RDW 15.4 H (11.5-14.5) % Plt Count 290 (140-400) K/mcL MPV 10.8 (9.4-12.4) fL Immature Gran % 0.3 (0-4) % Seg Neutrophils % 69.4 % Lymphocytes % 18.7 % Monocytes % 8.5 % Eosinophils % 2.4 % Basophils % 0.7 % Neutrophils # 6.0 (1.6-8.9) K/mcL Lymphocytes # 1.6 (0.6-4.6) K/mcL Monocytes # 0.7 (0.0-1.3) K/mcL Eosinophils # 0.2 (0.0-0.6) K/mcL Basophils # 0.1 (0.0-0.2) K/mcL PT 12.3 H (9.4-12.1) Seconds INR 1.1 APTT 26.1 (26.0-36.0) Seconds Sodium 134 L (136-145) mEq/L Potassium 4.7 (3.5-5.1) mEq/L Chloride 104 (98-107) mEq/L Carbon Dioxide 22 L (23-29) mEq/L BUN 34 H (6-20) mg/dL Creatinine 1.22 H (0.60-1.20) mg/dL Est GFR ( Amer) 55 L (> 60) Est GFR (Non-Af Amer) 45 L (> 60) BUN/Creatinine Ratio 28 H (6-26) Glucose 110 H (70-105) mg/dL Calculated Osmolality 286 (280-300) Calcium 9.8 (8.6-10.3) mg/dL Troponin I 0.03 (< 0.04) ng/mL - Radiology Data Radiology results reviewed: Yes I reviewed the patient's radiology results. Attestation Statement - Attestation Attestation: DR Redd note: Pt seen in conjunction w/ resident Dr Johnson; please see his charting for comp lete documentation. Assessment [id number] time with the patient and I agree with patient's treatment and disposition. Known coronary disease. Chest pain- free at time of admission. EKG and blood work was unremarkable at this time.
--- NOTE | 2018-12-23 18:30 | Internal Med History&Physical ---
Date of Encounter: 12/23/18 Time of Encounter: 11:00 Internal Medicine - H&P: HPI Chief complaint: Chest pain Admitted From: Home Plans for Post Hospital Care: Home History of present illness: Patient is a 58-year-old female with past medical history of recent, CVA, right carotid artery stenosis, hypertension, hyperlipidemia, chronic kidney disease and CAD with most recent PCI 09/2018 to mLCx and diagonal who presents to the ER due to chest pain. Patient reports a sudden onset of substernal chest pain which she describes a sharp radiating up the left side of her neck and down her left arm stopping at her elbow. She reported no provoking or relieving factors with associated symptoms of nausea. Patient was at the vascular surgeons office and there was concerns for ACS therefore patient since ER for further evaluation. In the ER patients first set of troponins were negative and EKG without any ST/T-wave changes. She will be admitted to the observation unit for ACS rule out. Past Med Surg Social Fam HX - Past Medical History Medical history: coronary artery disease, diabetes, hyperlipidemia, hypertension, myocardial infarction, renal disease, other Additional medical history: NSTEMI with STENTS November 2017, stents x2 September 2018. GALL BLADDER DISEASE Psychiatric history: anxiety - Past Surgical History Surgical History: angioplasty/stent, hysterectomy, other Additional surgical history: left nephrectomy - Social History Smoking Status: Never smoker Smokeless Tobacco Status: No Alcohol use: none Drug use: none - Family History Father Family Member Ethnicity: Non- Living Status: Hx Family Cardiac Disorders: Yes (CHF, [place], CAD) Mother Family Member Ethnicity: Non- Living Status: Hx Family Cardiac Disorders: Yes (CHF, DC, HTN) Hx Family Respiratory Disorders: Yes (COPD) Hx Family Endocrine Disorder: Yes (DM) Brother Adopted: Yes Family Member Ethnicity: Non- Living Status: Still Living Sister Family Member Ethnicity: Non- Living Status: Hx Family Cardiac Disorders: Yes (DC, CAD, Quadruple Bypass) Hx Family Respiratory Disorders: No Hx Family Cancer: Yes (Lung) Hx Family GI Disorders: No Hx Family Endocrine Disorder: Yes Hx Family Neuromuscular Disorders: No Hx Family Neurologic Disorders: No Hx Family HEENT Disorders: No Hx Family Autoimmune Disorders: No Internal Medicine - H&P: Meds Nitroglycerin 0.4 mg SL Q5MIN PRN 30 Days #30 tab.subl 12/07/17 [Rx] Metformin HCl [Glucophage] 1,000 mg PO BIDWM 04/28/18 [History] Citalopram [CeleXA] 20 mg PO DAILY tablet 08/05/18 [Rx] Ranolazine [Ranexa] 1,000 mg PO BID #120 tab.er.12h 10/03/18 [Rx] Ticagrelor [Brilinta] 90 mg PO BID #60 tablet 10/03/18 [Rx] Carvedilol 12.5 mg PO BIDWM 10/09/18 [History] Atorvastatin Calcium 80 mg PO HS 10/18/18 [History] Lisinopril [Zestril] 5 mg PO DAILY 10/18/18 [History] Aspirin 81 mg PO DAILY 11/04/18 [History] Docusate Sodium [Dok] 100 mg PO BID 11/04/18 [History] Cyclobenzaprine [Flexeril] 10 mg PO BID PRN #20 tablet 12/09/18 [Rx] Isosorbide MONOnitrate (24 HR) [Imdur] 30 mg PO DAILY 12/11/18 [History] Isosorbide MONOnitrate (24 HR) [Imdur] 60 mg PO DAILY 12/11/18 [History] Allergy/AdvReac Type Severity Reaction Status Date / Time No Known Allergies Allergy Verified 12/11/18 14:41 All Systems PM: A 10-system review of systems was performed and is negative for pertinent findings except as documented above in the HPI. - Constitutional Vitals: Temp Pulse Resp BP Pulse Ox 97.6 F 63 16 165/84 99 12/23/18 15:12 12/23/18 17:51 12/23/18 17:51 12/23/18 17:51 12/23/18 17:51 General appearance: Present: A&O X 3 Exam: As above - Head Head exam: Present: atraumatic, normocephalic - Eye Eye exam: Present: normal appearance - ENT ENT exam: Present: mucous membranes moist - Respiratory Respiratory exam: Present: CTAB. Absent: accessory muscle use, rales, rhonchi, wheezes - Cardiovascular Cardiovascular exam: Present: RRR, +S1, +S2. Absent: diastolic murmur, gallop, rubs, systolic murmur - GI/Abdominal GI/Abdominal exam: Absent: tenderness - Extremities Exam Extremities exam: Absent: pedal edema - Neurological Exam Neurological exam: Present: oriented X3 - Psychiatric Psychiatric exam: Present: normal mood - Skin Skin exam: Present: normal color Internal Med - H&P Results - Labs CBC & Chem 7: 12/23/18 15:28 12/23/18 15:28 Labs: Short CBC 12/23/18 Range/Units 15:28 WBC 8.6 (4.3-11.1) K/mcL Hgb 10.5 L (11.5-15.4) g/dL Hct 33.1 L (35.3-44.9) % Plt Count 290 (140-400) K/mcL Neutrophils # 6.0 (1.6-8.9) K/mcL BMP 12/23/18 15:28 Sodium 134 L Potassium 4.7 Chloride 104 Carbon Dioxide 22 L BUN 34 H Creatinine 1.22 H Glucose 110 H Calcium 9.8 Cardiac Enzymes 12/23/18 Range/Units 15:28 Troponin I 0.03 (< 0.04) ng/mL - Impressions ITS Impressions Chest X-Ray 12/23/18 15:14 IMPRESSION: No acute process. D/ / Jad Gonzalez MD / Jad Gonzalez MD Interpreting Provider: Jad Gonzalez MD - Assessment and Plan (1) Chest pain Current Visit: Yes Status: Acute Assessment and plan: Patient was with past medical history significant for coronary arterial disease who presents with chest pain. [facility] 12/05/17: EF 40%; s/p successful PTCA/CAROLA to [place], mid and distal LAD and diagonal; otherwise moderate CAD (LCx 60%). [facility] 08/04/18: There is moderate 2V CAD. EF 65%.mild-moderate non-obstructive CAD, medical therapy recommended. [facility] 09/26/18: s/p successful PTCA/CAROLA in the mLCx [facility] 10/01/18: s/p successful PTCA/CAROLA in the diagonal; patent LAD stents; otherwise no significant CAD. Patient's first set of troponins were negative; will trend troponins and monitor on telemetry Will consult cardiology and appreciate recommendations Qualifiers: Chest pain type: unspecified Qualified Code(s): R07.9 - Chest pain, unspecified (2) CVA (cerebral vascular accident) Current Visit: No Status: Acute Assessment and plan: Continue aspirin Qualifiers: Laterality of affected vessel: unspecified Qualified Code(s): I63.019 - Cerebral infarction due to thrombosis of unspecified vertebral artery (3) Carotid artery stenosis Current Visit: No Status: Acute Assessment and plan: Patient with 85% right internal carotid artery stenosis of 75% left carotid artery stenosis. Vascular surgery following as an outpatient with recommendations for a right carotid endarterectomy Qualifiers: Laterality: unspecified laterality Qualified Code(s): I65.29 - Occlusion and stenosis of unspecified carotid artery (4) CKD (chronic kidney disease) stage 3, GFR 30-59 ml/min Current Visit: No Status: Chronic Assessment and plan: Creatinine 1.22 on admission Will give gentle IV fluids (5) HLD (hyperlipidemia) Current Visit: No Status: Chronic Assessment and plan: Continue home medications Qualifiers: Hyperlipidemia type: unspecified Qualified Code(s): E78.5 - Hyperlipidemia, unspecified (6) HTN (hypertension) Current Visit: No Status: Chronic Assessment and plan: Continue home medications Qualifiers: Hypertension type: unspecified Qualified Code(s): I10 - Essential (primary) hypertension (7) Type II diabetes mellitus Current Visit: No Status: Chronic Assessment and plan: Coverage with sliding-scale insulin Qualifiers: Chronic kidney disease stage: unspecified stage Qualified Code(s): E11.22 - Type 2 diabetes mellitus with diabetic chronic kidney disease; Z79.4 - group home (current) use of insulin (8) DVT prophylaxis Current Visit: No Status: Acute Assessment and plan: Subcutaneous heparin - Time Spent With Patient Total time spent is greater than 50% in coordination of care (as documented) at patient's floor/unit and/or counseling patient:
[2018-12-23] MEDS ORDERED: Naloxone 0.4 MG/ML INJ IVP PRN (18:44)
[2018-12-23] MEDS ORDERED: 0.9 % Sodium Chloride 1,000 ML IVC SCH (18:45)
[2018-12-24 01:20] LABS: Basophils # 0.1 K/mcL (0.0-0.2); Basophils % 0.6 %; Eosinophils # 0.2 K/mcL (0.0-0.6); Eosinophils % 2.8 %; Hematocrit 31.4 % (35.3-44.9); Hemoglobin 10.1 g/dL (11.5-15.4); Immature Granulocytes % 0.3 % (0-4); Lymphocytes # 1.7 K/mcL (0.6-4.6); Lymphocytes % 21.9 %; Mean Corpuscular HGB Conc 32.2 g/dL (31.6-35.5); Mean Corpuscular Hemoglobin 30.4 pg (28.0-33.3); Mean Corpuscular Volume 94.6 fL (83.0-100.0); Mean Platelet Volume 10.5 fL (9.4-12.4); Monocytes # 0.8 K/mcL (0.0-1.3); Monocytes % 10.3 %; Neutrophils # 5.1 K/mcL (1.6-8.9); Platelet Count 278 K/mcL (140-400); Red Blood Count 3.32 M/mcL (3.82-4.97); Red Cell Distribution Width 15.3 % (11.5-14.5); Segmented Neutrophils % 64.1 %
[2018-12-24 01:38] LABS: Calcium 9.4 mg/dL (8.6-10.3); Potassium 3.9 mEq/L (3.5-5.1)
[2018-12-24] MEDS ORDERED: Acetaminophen IV 500 MG/50 ML INFUS..BTL IVPB ONE (06:58)
[2018-12-24] MEDS ORDERED: Nitroglycerin 0.4 MG TAB.SUBL SL PRN (11:37)
[2018-12-24] MEDS ORDERED: Ketorolac 15 MG/ML VIAL IVP ONE (11:37)
--- NOTE | 2018-12-24 11:42 | Cardiology Consult Note ---
Date of Encounter: 12/24/18 Time of Encounter: 11:40 Assessment and Plan (1) Chest pain Current Visit: Yes Status: Acute Recurrent atypical chest pain symptoms. Chest discomfort is reproducible on my exam and increases with deep breaths. Hx of CAD and recent PCI--09/26/18 with CAROLA to mLCx and [facility] 10/01/18 with CAROLA to diagonal. Patent LAD stents and otherwirse no significant disease. TTE 10/2018 EF preserved. This admit troponin negative x3. EKG with no acute ST changes when compared with prior EKG. SR with LVH. Denies improvement with recent change in anti-anginal therapy. Discussed with Dr. Escamilla, recommends tordol IV to help with pain. Consider non- cardiac causes of chest pain such as arthritis or GI issues. Qualifiers: Chest pain type: unspecified Qualified Code(s): R07.9 - Chest pain, unspecified (2) Carotid artery stenosis Current Visit: No Status: Acute Known severe bilateral carotid artery stenosis. Following with vascular surgery. Qualifiers: Laterality: unspecified laterality Qualified Code(s): I65.29 - Occlusion and stenosis of unspecified carotid artery (3) CAD (coronary artery disease) Current Visit: No Status: Chronic Home meds restarted. S/p PCI 09/2018 to LCx artery and staged PCI to the diagonal artery. LAD stents patent and no significant disease remaining. Continue DAPT uninterrupted for min one year. Continue statin, bb, ranexa, and imdur. Qualifiers: Coronary Disease-Associated Artery/Lesion type: [place] artery [place] vs. transplanted heart: [place] heart Associated angina: without angina Qualified Code(s): I25.10 - Atherosclerotic heart disease of [place] coronary artery without angina pectoris Discussion w patient/family: The assessment and plan as outlined above was discussed with the patient and/or family members who expressed understanding and agreement. All questions were answered. Thank you for involving us in the care of your patient. Please call with any questions. History of Present Illness Consult date: 12/24/18 Requesting physician: Kervin Lewis Consult reason: 12/24/18 Chief complaint: chest pain History of present illness: Ms. Thornton is a 58 year old female with past medical history significant for CAD s/p PCI x2 in September this year, severe carotid artery disease planning for right carotid procedure, HTN, HLD, DM. She presented with c/o recurrent chest discomfort. Since her cardiac catheterizations in September she continued to have intermittent atypical chest pain symptoms and abdominal pain. She denies significant improvement with adjustment of anti-anginal therapy. Her pain started yesterday when she was seeing her vascular surgeon to set up procedure on her right carotid artery. She describes the pain as an ache below her left breast associated with a headache. She also c/o intermittent left arm numbness. She was recently seen for left sided numbness and found to have severe carotid artery disease. Denies use of NTG. She was given tylenol infusion with minimal relief. Past Med Surg Social Fam HX - Past Medical History Medical history: coronary artery disease, diabetes, hyperlipidemia, hypertension, myocardial infarction, renal disease, other Additional medical history: NSTEMI with STENTS November 2017, stents x2 September 2018. GALL BLADDER DISEASE Psychiatric history: anxiety - Past Surgical History Surgical History: angioplasty/stent, hysterectomy, other Additional surgical history: left nephrectomy - Social History Smoking Status: Never smoker Smokeless Tobacco Status: No Alcohol use: none Drug use: none - Family History Father Family Member Ethnicity: Non- Living Status: Hx Family Cardiac Disorders: Yes (CHF, [place], CAD) Mother Family Member Ethnicity: Non- Living Status: Hx Family Cardiac Disorders: Yes (CHF, SD, HTN) Hx Family Respiratory Disorders: Yes (COPD) Hx Family Endocrine Disorder: Yes (DM) Brother Adopted: Yes Family Member Ethnicity: Non- Living Status: Still Living Sister Family Member Ethnicity: Non- Living Status: Hx Family Cardiac Disorders: Yes (SD, CAD, Quadruple Bypass) Hx Family Respiratory Disorders: No Hx Family Cancer: Yes (Lung) Hx Family GI Disorders: No Hx Family Endocrine Disorder: Yes Hx Family Neuromuscular Disorders: No Hx Family Neurologic Disorders: No Hx Family HEENT Disorders: No Hx Family Autoimmune Disorders: No Medications and Allergies Nitroglycerin 0.4 mg SL Q5MIN PRN 30 Days #30 tab.subl 12/07/17 [Rx] Metformin HCl [Glucophage] 1,000 mg PO BIDWM 04/28/18 [History] Ranolazine [Ranexa] 1,000 mg PO BID #120 tab.er.12h 10/03/18 [Rx] Ticagrelor [Brilinta] 90 mg PO BID #60 tablet 10/03/18 [Rx] Carvedilol 12.5 mg PO BIDWM 10/09/18 [History] Atorvastatin Calcium 80 mg PO HS 10/18/18 [History] Lisinopril [Zestril] 5 mg PO DAILY 10/18/18 [History] Aspirin 81 mg PO DAILY 11/04/18 [History] Docusate Sodium [Dok] 100 mg PO BID 11/04/18 [History] Cyclobenzaprine [Flexeril] 10 mg PO BID PRN #20 tablet 12/09/18 [Rx] Isosorbide MONOnitrate (24 HR) [Imdur] 30 mg PO QAM 12/11/18 [History] Isosorbide MONOnitrate (24 HR) [Imdur] 60 mg PO QAM 12/11/18 [History] Citalopram [CeleXA] 20 mg PO QAM 12/24/18 [History] Allergy/AdvReac Type Severity Reaction Status Date / Time No Known Allergies Allergy Verified 12/24/18 10:00 All Systems Review: The remainder of the systems were reviewed and are negative Physical Examination Vital Signs, Last 4 Hours Temp Pulse Resp BP Pulse Ox 12/24/18 11:23 98.7 F 60 15 108/66 97 General: Conversant, No Apparent Distress HEENT: Atraumatic, Normocephaly, Mucus Membranes Moist Neck: No JVD, Normal carotid pulses Cardiac: Reg Rate and Rhythm, Normal S1 and S2, No Murmur Lungs: Normal Breath Sounds, No Wheeze, Rales, Rhonchi Neuro: Alert and responsive, No focal deficits noted Abdomen: Soft, Other (tenderness LUQ) Skin: No rashes noted on visualized skin Musculoskeletal: Other (Left lower chest wall pain reproducible on my exam.) Extremities: No Clubbing, No Cyanosis, No Edema, Normal Pulses Results 12/24/18 01:08 12/24/18 01:08 Lab Results 12/23/18 12/23/18 12/23/18 15:28 15:28 15:28 WBC 8.6 Hgb 10.5 L Hct 33.1 L Plt Count 290 INR 1.1 APTT 26.1 Sodium 134 L Potassium 4.7 Chloride 104 Carbon Dioxide 22 L BUN 34 H Creatinine 1.22 H Glucose 110 H Calcium 9.8 Troponin I 0.03 12/23/18 12/24/18 12/24/18 19:28 01:08 01:08 WBC 8.0 Hgb 10.1 L Hct 31.4 L Plt Count 278 INR APTT Sodium Potassium Chloride Carbon Dioxide BUN Creatinine Glucose Calcium Troponin I 0.03 < 0.03 12/24/18 12/24/18 01:08 08:55 WBC Hgb Hct Plt Count INR APTT Sodium 135 L Potassium 3.9 Chloride 103 Carbon Dioxide 24 BUN 29 H Creatinine 1.22 H Glucose 154 H Calcium 9.4 Troponin I 0.03 - Imaging and Cardiology Stress Test: report reviewed Echo: report reviewed Cardiac cath: report reviewed - EKG Interpretation EKG results cardiology: personally reviewed Consult Discharge Plan - Plan Referrals: Hannah Queen MD [Primary Care Provider] -
[2018-12-24] MEDS ORDERED: Aspirin 81 MG TAB.CHEW PO SCH (11:45)
[2018-12-24] MEDS ORDERED: Ranolazine 500 MG TAB.ER.12H PO SCH (11:45)
[2018-12-24] MEDS ORDERED: *HR* Ticagrelor 90 MG TABLET PO SCH (11:45)
[2018-12-24] MEDS ORDERED: Isosorbide MONOnitrate (24 HR) 30 MG TAB.ER.24H PO SCH (11:45)
--- NOTE | 2018-12-24 15:23 | Discharge Summary ---
Date of Encounter: 12/24/18 Time of Encounter: 11:00 - Discharge Diagnosis (1) Chest pain Priority: Primary Status: Acute Qualifiers: Chest pain type: unspecified Qualified Code(s): R07.9 - Chest pain, unspecified (2) CVA (cerebral vascular accident) Priority: Secondary Status: Acute Qualifiers: Laterality of affected vessel: unspecified Qualified Code(s): I63.019 - Cerebral infarction due to thrombosis of unspecified vertebral artery (3) Carotid artery stenosis Priority: Secondary Status: Acute Qualifiers: Laterality: unspecified laterality Qualified Code(s): I65.29 - Occlusion and stenosis of unspecified carotid artery (4) CKD (chronic kidney disease) stage 3, GFR 30-59 ml/min Priority: Secondary Status: Chronic (5) HLD (hyperlipidemia) Priority: Secondary Status: Chronic Qualifiers: Hyperlipidemia type: unspecified Qualified Code(s): E78.5 - Hyperlipidemia, unspecified (6) HTN (hypertension) Priority: Secondary Status: Chronic Qualifiers: Hypertension type: unspecified Qualified Code(s): I10 - Essential (primary) hypertension (7) Type II diabetes mellitus Priority: Secondary Status: Chronic Qualifiers: Chronic kidney disease stage: unspecified stage Qualified Code(s): E11.22 - Type 2 diabetes mellitus with diabetic chronic kidney disease; Z79.4 - assisted (current) use of insulin Hospital course: Patient is a 58-year-old female with past medical history of recent, CVA, right carotid artery stenosis, hypertension, hyperlipidemia, chronic kidney disease and CAD with most recent PCI 09/2018 to mLCx and diagonal who presents to the ER due to chest pain. Patient reports a sudden onset of substernal chest pain which she describes a sharp radiating up the left side of her neck and down her left arm stopping at her elbow. She reported no provoking or relieving factors with associated symptoms of nausea. Patient was at the vascular surgeons office and there was concerns for ACS therefore patient since ER for further evaluation. In the ER patients first set of troponins were negative and EKG without any ST/T-wave changes. She will be admitted to the observation unit for ACS rule out. During patients hospital stay her troponins were negative. Cardiology was consulted and does not suspect chest pain cardiac related. Patients chest pain is reproducible therefore suspect musculoskeletal origin. Patient however does have some epigastric tenderness so she will be discharged on oral PPI and to follow-up with primary care provider. - Time Spent with Patient Total time spent providing and/or coordinating discharge services: Time spent: Less than 30 minutes - Discharge Medications Prescriptions: New Omeprazole [PriLOSEC] 40 mg PO DAILY #30 cap Continue Nitroglycerin 0.4 mg SL Q5MIN PRN 30 Days #30 tab.subl PRN Reason: Chest Pain Ticagrelor [Brilinta] 90 mg PO BID #60 tablet Ranolazine [Ranexa] 1,000 mg PO BID #120 tab.er.12h Carvedilol 12.5 mg PO BIDWM Lisinopril [Zestril] 5 mg PO DAILY Atorvastatin Calcium 80 mg PO HS Aspirin 81 mg PO DAILY Docusate Sodium [Dok] 100 mg PO BID Cyclobenzaprine [Flexeril] 10 mg PO BID PRN #20 tablet PRN Reason: Spasms Isosorbide MONOnitrate (24 HR) [Imdur] 30 mg PO QAM Isosorbide MONOnitrate (24 HR) [Imdur] 60 mg PO QAM Citalopram [CeleXA] 20 mg PO QAM Metformin HCl [Glucophage] 1,000 mg PO BIDWM Home Medications: Nitroglycerin 0.4 mg SL Q5MIN PRN 30 Days #30 tab.subl 12/07/17 [Rx] Metformin HCl [Glucophage] 1,000 mg PO BIDWM 04/28/18 [History] Ranolazine [Ranexa] 1,000 mg PO BID #120 tab.er.12h 10/03/18 [Rx] Ticagrelor [Brilinta] 90 mg PO BID #60 tablet 10/03/18 [Rx] Carvedilol 12.5 mg PO BIDWM 10/09/18 [History] Atorvastatin Calcium 80 mg PO HS 10/18/18 [History] Lisinopril [Zestril] 5 mg PO DAILY 10/18/18 [History] Aspirin 81 mg PO DAILY 11/04/18 [History] Docusate Sodium [Dok] 100 mg PO BID 11/04/18 [History] Cyclobenzaprine [Flexeril] 10 mg PO BID PRN #20 tablet 12/09/18 [Rx] Isosorbide MONOnitrate (24 HR) [Imdur] 30 mg PO QAM 12/11/18 [History] Isosorbide MONOnitrate (24 HR) [Imdur] 60 mg PO QAM 12/11/18 [History] Citalopram [CeleXA] 20 mg PO QAM 12/24/18 [History] Omeprazole [PriLOSEC] 40 mg PO DAILY #30 cap 12/24/18 [Rx] Allergies/Adverse Reactions: Allergy/AdvReac Type Severity Reaction Status Date / Time No Known Allergies Allergy Verified 12/24/18 10:00 Date of admission: 12/23/18 17:29 Primary care physician: Hannah Queen Consults: 12/23/18 18:49 Consult to Cardiology [CONS] Routine Comment: Consulting Provider: Cardiology Felipa Reason for Consult: ACS rule out Call Completed: No - Constitutional Vitals: Temp Pulse Resp BP Pulse Ox 98.7 F 60 15 108/66 97 12/24/18 11:23 12/24/18 11:23 12/24/18 11:23 12/24/18 11:23 12/24/18 11:23 General appearance: Present: A&O X 3 Exam: Gen.: Nonacute distress, alert and oriented 3 Skin: Normal color - Patient Status Disposition: Home, Self-Care Condition: Good - Discharge Instructions Follow Up With: Hannah Queen MD [Primary Care Provider] - (Office will call with date and time of appointment. )
[2018-12-24 15:30] VITALS: BP 135/77
== END 2018-12-24 17:50 | disposition home or self-care (01) ==
LOC: EMEROOARM 15:10 → 3BNU 15:10 → SUATTDRO 17:29 → 3BNU 18:19
PROVIDERS: ADMIT Internal Medicine Nephrology; ATTEND Hospitalist

== ENCOUNTER 2019-10-18 19:14 | Inpatient (IN) ==
[2019-10-18] MEDS ORDERED: Aspirin 81 MG TAB.CHEW PO ONE (19:27)
[2019-10-18] MEDS: Nitroglycerin 0.4 MG TAB.SUBL SL PRN ×3 (19:39→19:53)
[2019-10-18 19:46] LABS: Basophils % 0.4 %; Eosinophils # 0.2 K/mcL (0.0-0.6); Eosinophils % 2.2 %; Hematocrit 34.4 % (35.3-44.9); Hemoglobin 10.9 g/dL (11.5-15.4); Immature Granulocytes % 0.3 % (0-4); Lymphocytes # 1.3 K/mcL (0.6-4.6); Mean Corpuscular HGB Conc 31.7 g/dL (31.6-35.5); Mean Corpuscular Hemoglobin 30.4 pg (28.0-33.3); Mean Corpuscular Volume 96.1 fL (83.0-100.0); Mean Platelet Volume 10.1 fL (9.4-12.4); Monocytes # 0.8 K/mcL (0.0-1.3); Monocytes % 10.1 %; Neutrophils # 5.4 K/mcL (1.6-8.9); Platelet Count 233 K/mcL (140-400); Red Blood Count 3.58 M/mcL (3.82-4.97); Red Cell Distribution Width 14.4 % (11.5-14.5); White Blood Count 7.8 K/mcL (4.3-11.1)
[2019-10-18] MEDS ORDERED: Isovue-370 500 ML BOTTLE IVP ONE (19:57)
[2019-10-18 20:08] LABS: Alanine Aminotransferase 12 Units/L (7-52); Albumin 3.8 g/dL (3.5-5.7); Albumin/Globulin Ratio 1.3 (1.1-2.2); Alkaline Phosphatase 56 Units/L (34-104); Aspartate Amino Transferase 10 Units/L (13-39); BUN/Creatinine Ratio 20 (6-26); Bilirubin,Direct 0.1 mg/dL (0.0-0.2); Bilirubin,Indirect 0.3 mg/dL (0.0-1.0); Bilirubin,Total 0.4 mg/dL (0.3-1.0); Blood Urea Nitrogen 32 mg/dL (6-20); Carbon Dioxide 23 mEq/L (23-29); Chloride 106 mEq/L (98-107); Glucose 122 mg/dL (70-105); Osmolality,Calculated 292 (280-300); Potassium 4.1 mEq/L (3.5-5.1); Sodium 137 mEq/L (136-145); Total Protein 6.8 g/dL (6.4-8.9); eGFR For African Americans 40 (> 60); eGFR For Non-African Americans 33 (> 60)
[2019-10-18 20:09] LABS: Troponin I < 0.03 ng/mL (< 0.04)
[2019-10-18] MEDS ORDERED: Morphine Sulfate 2 MG/ML SYRINGE IVP ONE ×2 (20:15→21:25)
[2019-10-18] MEDS ORDERED: *HR* Heparin 5,000 UNIT/ML VIAL IVP PRN ×2 (21:28)
[2019-10-18] MEDS ORDERED: *HR* Heparin 5,000 UNIT/ML VIAL IVP ONE (21:28)
[2019-10-18] MEDS ORDERED: Heparin 25,000 UNIT/250 ML D5W 25,000 UNIT/250 ML IV.SOLN IVC SCH (21:30)
[2019-10-18] MEDS ORDERED: Naloxone 0.4 MG/ML INJ IVP PRN (22:29)
[2019-10-18] MEDS ORDERED: D5% in Water 1,000 ML IVC PRN (23:01)
[2019-10-18] MEDS ORDERED: Dextrose Gel 15 GM/37.5 ML TUBE PO PRN ×2 (23:01)
[2019-10-18] MEDS ORDERED: *HR* Dextrose 50 % in Water (Syg) 50 ML SYRINGE IVP PRN (23:01)
[2019-10-18] MEDS ORDERED: 0.9 % Sodium Chloride 1,000 ML IVC ONE (23:03)
[2019-10-19] MEDS: Insulin LISPRO 300 UNITS/3 ML VIAL SQ SCH ×5 (00:28→23:04)
[2019-10-19] MEDS ORDERED: Regadenoson 0.4 MG/5 ML SYRINGE IVP ONE (06:18)
[2019-10-19] MEDS: Morphine Sulfate 2 MG/ML SYRINGE IVP PRN ×3 (09:46→21:57)
[2019-10-19 10:09] LABS: Hematocrit 33.1 % (35.3-44.9); Hemoglobin 10.7 g/dL (11.5-15.4); Mean Corpuscular HGB Conc 32.3 g/dL (31.6-35.5); Mean Corpuscular Hemoglobin 30.1 pg (28.0-33.3); Mean Corpuscular Volume 93.2 fL (83.0-100.0); Mean Platelet Volume 10.1 fL (9.4-12.4); Platelet Count 229 K/mcL (140-400); Red Blood Count 3.55 M/mcL (3.82-4.97); Red Cell Distribution Width 14.6 % (11.5-14.5); White Blood Count 6.5 K/mcL (4.3-11.1)
[2019-10-19 10:26] LABS: BUN/Creatinine Ratio 17 (6-26); Blood Urea Nitrogen 29 mg/dL (6-20); Calcium 8.9 mg/dL (8.6-10.3); Carbon Dioxide 22 mEq/L (23-29); Chloride 107 mEq/L (98-107); Glucose 112 mg/dL (70-105); Osmolality,Calculated 291 (280-300); Potassium 4.5 mEq/L (3.5-5.1); Sodium 137 mEq/L (136-145); eGFR For African Americans 38 (> 60); eGFR For Non-African Americans 32 (> 60)
[2019-10-19 10:28] LABS: Troponin I < 0.03 ng/mL (< 0.04)
[2019-10-19] MEDS ORDERED: *HR* Acetaminophen w/Cod 300-30 mg 1 TAB TABLET PO PRN (11:22)
[2019-10-19] MEDS: Ranolazine 500 MG TAB.ER.12H PO SCH ×2 (12:36→21:55)
[2019-10-19] MEDS: Gabapentin 100 MG CAPSULE PO SCH ×2 (12:36→21:56)
[2019-10-19] MEDS: carvediloL 25 MG TABLET PO SCH ×2 (12:37→16:01)
[2019-10-19] MEDS: *HR* Ticagrelor 90 MG TABLET PO SCH ×2 (12:37→21:56)
[2019-10-19] MEDS: Aspirin 81 MG TAB.CHEW PO SCH (12:38)
[2019-10-19] MEDS: Isosorbide MONOnitrate (24 HR) 30 MG TAB.ER.24H PO SCH (12:38)
[2019-10-19] MEDS: Isosorbide MONOnitrate (24 HR) 60 MG TAB.ER.24H PO SCH (12:38)
[2019-10-19] MEDS: *HR* Heparin 5,000 UNIT/ML VIAL SQ SCH (17:45)
[2019-10-20 05:30] LABS: Basophils % 0.5 %; Eosinophils # 0.2 K/mcL (0.0-0.6); Eosinophils % 2.6 %; Hematocrit 32.7 % (35.3-44.9); Hemoglobin 10.5 g/dL (11.5-15.4); Immature Granulocytes % 0.3 % (0-4); Lymphocytes # 0.9 K/mcL (0.6-4.6); Lymphocytes % 11.5 %; Mean Corpuscular HGB Conc 32.1 g/dL (31.6-35.5); Mean Corpuscular Hemoglobin 30.2 pg (28.0-33.3); Mean Platelet Volume 10.4 fL (9.4-12.4); Monocytes # 0.7 K/mcL (0.0-1.3); Monocytes % 8.8 %; Platelet Count 249 K/mcL (140-400); Red Blood Count 3.48 M/mcL (3.82-4.97); Red Cell Distribution Width 14.6 % (11.5-14.5); Segmented Neutrophils % 76.3 %; White Blood Count 7.8 K/mcL (4.3-11.1)
[2019-10-20 05:53] LABS: Calcium 9.2 mg/dL (8.6-10.3); Magnesium 1.9 mg/dL (1.6-2.6); Phosphorous 4.8 mg/dL (2.7-4.5); Potassium 4.7 mEq/L (3.5-5.1)
[2019-10-20] MEDS: *HR* Heparin 5,000 UNIT/ML VIAL SQ SCH ×2 (06:10→16:13)
[2019-10-20] MEDS ORDERED: *HR* Promethazine 25 MG/ML VIAL IVP ONE (06:26)
[2019-10-20] MEDS: Insulin LISPRO 300 UNITS/3 ML VIAL SQ SCH ×4 (08:04→20:37)
[2019-10-20] MEDS: 0.9 % Sodium Chloride 1,000 ML IVC SCH ×2 (08:04→20:41)
[2019-10-20] MEDS: carvediloL 25 MG TABLET PO SCH ×2 (08:07→16:13)
[2019-10-20] MEDS: Isosorbide MONOnitrate (24 HR) 30 MG TAB.ER.24H PO SCH (08:08)
[2019-10-20] MEDS: Isosorbide MONOnitrate (24 HR) 60 MG TAB.ER.24H PO SCH (08:08)
[2019-10-20] MEDS: *HR* Ticagrelor 90 MG TABLET PO SCH ×2 (08:08→20:40)
[2019-10-20] MEDS: Aspirin 81 MG TAB.CHEW PO SCH (08:08)
[2019-10-20] MEDS: Ranolazine 500 MG TAB.ER.12H PO SCH ×2 (08:09→20:40)
[2019-10-20] MEDS: Gabapentin 100 MG CAPSULE PO SCH ×2 (08:09→20:40)
[2019-10-20 08:59] LABS: INR 1.1; Prothrombin Time 12.5 Seconds (9.4-12.1)
[2019-10-20] MEDS ORDERED: *HR* Midazolam HCl 2 MG/2 ML VIAL ONE (10:02)
[2019-10-20] MEDS ORDERED: *HR* Heparin 10,000 UNIT/10 ML VIAL ONE (10:03)
[2019-10-20] MEDS ORDERED: 0.9 % Sodium Chloride 1,000 ML ONE ×2 (10:03→10:04)
[2019-10-20] MEDS ORDERED: Heparin 1,000 UNITS/500 mL 500 ML ONE (10:03)
[2019-10-20] MEDS ORDERED: ISOVUE-370 200 ML INFUS..BTL ONE (10:03)
[2019-10-20] MEDS ORDERED: *HR* FentaNYL (PF) 100 MCG/2 ML VIAL ONE (10:03)
[2019-10-20] MEDS ORDERED: Nitroglycerin 1,000 MCG/10 ML VIAL IV ONE (10:03)
[2019-10-20] MEDS ORDERED: Isosorbide MONOnitrate (24 HR) 30 MG TAB.ER.24H PO ONE (12:15)
[2019-10-21 05:53] LABS: Basophils % 0.2 %; Eosinophils # 0.2 K/mcL (0.0-0.6); Eosinophils % 3.3 %; Hematocrit 30.9 % (35.3-44.9); Hemoglobin 9.8 g/dL (11.5-15.4); Immature Granulocytes % 0.2 % (0-4); Lymphocytes # 1.3 K/mcL (0.6-4.6); Lymphocytes % 20.9 %; Mean Corpuscular HGB Conc 31.7 g/dL (31.6-35.5); Mean Corpuscular Hemoglobin 30.2 pg (28.0-33.3); Mean Corpuscular Volume 95.1 fL (83.0-100.0); Mean Platelet Volume 10.5 fL (9.4-12.4); Monocytes # 0.6 K/mcL (0.0-1.3); Monocytes % 9.2 %; Platelet Count 201 K/mcL (140-400); Red Blood Count 3.25 M/mcL (3.82-4.97); Red Cell Distribution Width 14.3 % (11.5-14.5); Segmented Neutrophils % 66.2 %
[2019-10-21] MEDS: *HR* Heparin 5,000 UNIT/ML VIAL SQ SCH ×2 (06:00→17:50)
[2019-10-21] MEDS: Morphine Sulfate 2 MG/ML SYRINGE IVP PRN (06:06)
[2019-10-21 06:16] LABS: Calcium 8.6 mg/dL (8.6-10.3); Magnesium 1.9 mg/dL (1.6-2.6); Phosphorous 4.3 mg/dL (2.7-4.5); Potassium 4.5 mEq/L (3.5-5.1)
[2019-10-21] MEDS: Insulin LISPRO 300 UNITS/3 ML VIAL SQ SCH ×4 (08:03→20:23)
[2019-10-21] MEDS ORDERED: Topiramate 25 MG TABLET PO PRN (08:18)
[2019-10-21] MEDS: Isosorbide MONOnitrate (24 HR) 30 MG TAB.ER.24H PO SCH (08:44)
[2019-10-21] MEDS: Ranolazine 500 MG TAB.ER.12H PO SCH ×2 (08:44→20:40)
[2019-10-21] MEDS: Gabapentin 100 MG CAPSULE PO SCH ×2 (08:45→20:40)
[2019-10-21] MEDS: Aspirin 81 MG TAB.CHEW PO SCH (08:45)
[2019-10-21] MEDS: 0.9 % Sodium Chloride 1,000 ML IVC SCH ×2 (08:45→15:04)
[2019-10-21] MEDS: *HR* Ticagrelor 90 MG TABLET PO SCH ×2 (08:45→20:41)
[2019-10-21] MEDS: carvediloL 25 MG TABLET PO SCH ×2 (08:45→17:50)
[2019-10-21] MEDS ORDERED: Isosorbide MONOnitrate (24 HR) 30 MG TAB.ER.24H PO SCH (09:00)
[2019-10-21] MEDS: *HR* Acetaminophen w/Cod 300-30 mg 1 TAB TABLET PO PRN (18:40)
[2019-10-22] MEDS: *HR* Acetaminophen w/Cod 300-30 mg 1 TAB TABLET PO PRN (00:44)
[2019-10-22] MEDS: *HR* Heparin 5,000 UNIT/ML VIAL SQ SCH (05:25)
[2019-10-22 07:00] VITALS: BP 147/73
[2019-10-22 07:11] LABS: Calcium 8.7 mg/dL (8.6-10.3); Potassium 4.5 mEq/L (3.5-5.1)
[2019-10-22] MEDS: Insulin LISPRO 300 UNITS/3 ML VIAL SQ SCH (07:13)
[2019-10-22] MEDS: 0.9 % Sodium Chloride 1,000 ML IVC SCH (08:44)
[2019-10-22] MEDS: carvediloL 25 MG TABLET PO SCH (08:47)
[2019-10-22] MEDS: Aspirin 81 MG TAB.CHEW PO SCH (08:48)
[2019-10-22] MEDS: Ranolazine 500 MG TAB.ER.12H PO SCH (08:48)
[2019-10-22] MEDS: Isosorbide MONOnitrate (24 HR) 30 MG TAB.ER.24H PO SCH (08:48)
[2019-10-22] MEDS: *HR* Ticagrelor 90 MG TABLET PO SCH (08:48)
[2019-10-22] MEDS: Gabapentin 100 MG CAPSULE PO SCH (08:48)
== END 2019-10-22 14:30 | disposition home or self-care (01) | DRG 192 ==
LOC: EMEROOARM 19:14 → 3BNU 19:14 → SUATTDRO 22:03 → 3BNU 22:31
PROVIDERS: ADMIT Internal Medicine; ATTEND Internal Medicine

== ENCOUNTER 2019-12-03 16:41 | Observation (INO) ==
[2019-12-03 17:49] LABS: Basophils % 0.3 %; Eosinophils # 0.1 K/mcL (0.0-0.6); Eosinophils % 2.1 %; Hematocrit 34.2 % (35.3-44.9); Hemoglobin 10.8 g/dL (11.5-15.4); Immature Granulocytes % 0.3 % (0-4); Lymphocytes # 1.2 K/mcL (0.6-4.6); Lymphocytes % 17.4 %; Mean Corpuscular HGB Conc 31.6 g/dL (31.6-35.5); Mean Corpuscular Hemoglobin 30.3 pg (28.0-33.3); Mean Corpuscular Volume 96.1 fL (83.0-100.0); Mean Platelet Volume 10.5 fL (9.4-12.4); Monocytes # 0.7 K/mcL (0.0-1.3); Monocytes % 10.4 %; Neutrophils # 4.7 K/mcL (1.6-8.9); Platelet Count 209 K/mcL (140-400); Red Blood Count 3.56 M/mcL (3.82-4.97); Red Cell Distribution Width 13.5 % (11.5-14.5); Segmented Neutrophils % 69.5 %; White Blood Count 6.7 K/mcL (4.3-11.1)
[2019-12-03 18:13] LABS: Alanine Aminotransferase 9 Units/L (7-52); Albumin 3.8 g/dL (3.5-5.7); Albumin/Globulin Ratio 1.3 (1.1-2.2); Alkaline Phosphatase 59 Units/L (34-104); Aspartate Amino Transferase 9 Units/L (13-39); BUN/Creatinine Ratio 21 (6-26); Bilirubin,Direct 0.1 mg/dL (0.0-0.2); Bilirubin,Indirect 0.2 mg/dL (0.0-1.0); Bilirubin,Total 0.3 mg/dL (0.3-1.0); Blood Urea Nitrogen 31 mg/dL (6-20); Calcium 9.2 mg/dL (8.6-10.3); Carbon Dioxide 22 mEq/L (23-29); Chloride 107 mEq/L (98-107); Glucose 138 mg/dL (70-105); Osmolality,Calculated 287 (280-300); Sodium 134 mEq/L (136-145); Total Protein 6.8 g/dL (6.4-8.9); Troponin I < 0.03 ng/mL (< 0.04); eGFR For African Americans 43 (> 60); eGFR For Non-African Americans 36 (> 60)
[2019-12-03] MEDS ORDERED: Isovue-370 500 ML BOTTLE IVP ONE (19:22)
[2019-12-03] MEDS ORDERED: Morphine Sulfate 2 MG/ML SYRINGE IVP ONE (21:22)
[2019-12-03] MEDS ORDERED: Naloxone 0.4 MG/ML INJ IVP PRN (23:05)
[2019-12-04] MEDS ORDERED: Nitroglycerin 0.4 MG TAB.SUBL SL PRN (00:23)
[2019-12-04] MEDS ORDERED: Dextrose Gel 15 GM/37.5 ML TUBE PO PRN ×2 (00:49)
[2019-12-04] MEDS ORDERED: *HR* Dextrose 50 % in Water (Syg) 50 ML SYRINGE IVP PRN (00:49)
[2019-12-04] MEDS ORDERED: D5% in Water 1,000 ML IVC PRN (00:49)
[2019-12-04 02:01] LABS: Hematocrit 33.5 % (35.3-44.9); Hemoglobin 10.6 g/dL (11.5-15.4); Mean Corpuscular HGB Conc 31.6 g/dL (31.6-35.5); Mean Corpuscular Hemoglobin 29.9 pg (28.0-33.3); Mean Corpuscular Volume 94.4 fL (83.0-100.0); Mean Platelet Volume 10.7 fL (9.4-12.4); Platelet Count 217 K/mcL (140-400); Red Blood Count 3.55 M/mcL (3.82-4.97); Red Cell Distribution Width 13.7 % (11.5-14.5)
[2019-12-04 02:19] LABS: Calcium 9.1 mg/dL (8.6-10.3); Potassium 4.3 mEq/L (3.5-5.1)
[2019-12-04] MEDS: Insulin LISPRO 300 UNITS/3 ML VIAL SQ SCH ×2 (05:59→11:53)
[2019-12-04] MEDS ORDERED: *HR* Heparin 5,000 UNIT/ML VIAL SQ SCH (06:00)
[2019-12-04 09:35] VITALS: BP 110/72
== END 2019-12-04 13:48 | disposition home or self-care (01) ==
LOC: 3BNU 16:41 → EMEROOARM 16:41 → SUATTDRO 22:37 → 3BNU 23:32
PROVIDERS: ADMIT Student in an Organized Health Care Education/Training Program; ATTEND Internal Medicine

== ENCOUNTER 2020-01-05 17:27 | Observation (INO) ==
[2020-01-05] MEDS ORDERED: *HR* FentaNYL (PF) 100 MCG/2 ML VIAL IVP ONE (17:41)
[2020-01-05] MEDS: 0.9 % Sodium Chloride 1,000 ML IVC SCH (17:54)
[2020-01-05 18:35] LABS: Basophils % 0.5 %; Eosinophils # 0.2 K/mcL (0.0-0.6); Eosinophils % 2.8 %; Hematocrit 35.2 % (35.3-44.9); Immature Granulocytes % 0.4 % (0-4); Lymphocytes # 1.3 K/mcL (0.6-4.6); Lymphocytes % 15.7 %; Mean Corpuscular HGB Conc 31.3 g/dL (31.6-35.5); Mean Corpuscular Hemoglobin 29.8 pg (28.0-33.3); Mean Corpuscular Volume 95.4 fL (83.0-100.0); Mean Platelet Volume 10.4 fL (9.4-12.4); Monocytes # 0.7 K/mcL (0.0-1.3); Monocytes % 8.4 %; Neutrophils # 5.8 K/mcL (1.6-8.9); Platelet Count 258 K/mcL (140-400); Red Blood Count 3.69 M/mcL (3.82-4.97); Red Cell Distribution Width 14.1 % (11.5-14.5); Segmented Neutrophils % 72.2 %
[2020-01-05 18:46] LABS: INR 1.1; Prothrombin Time 12.3 Seconds (9.4-12.1)
[2020-01-05 18:56] LABS: Calcium 9.5 mg/dL (8.6-10.3); Potassium 5.3 mEq/L (3.5-5.1)
[2020-01-05 19:05] LABS: Troponin I < 0.03 ng/mL (< 0.04)
[2020-01-05] MEDS ORDERED: Naloxone 0.4 MG/ML INJ IVP PRN (21:28)
[2020-01-05] MEDS ORDERED: Ondansetron 4 MG/2 ML VIAL IVP PRN (21:28)
[2020-01-05] MEDS ORDERED: Calcium Gluconate 1gm/50mL 1 GM/50 ML BAG IVPB ONE (21:33)
[2020-01-05] MEDS ORDERED: Nitroglycerin 0.4 MG TAB.SUBL SL PRN (21:53)
[2020-01-05] MEDS ORDERED: tiZANidine 4 MG TABLET PO PRN (21:53)
[2020-01-05] MEDS ORDERED: Dextrose Gel 15 GM/37.5 ML TUBE PO PRN ×2 (21:58)
[2020-01-05] MEDS ORDERED: D5% in Water 1,000 ML IVC PRN (21:58)
[2020-01-05] MEDS ORDERED: *HR* Dextrose 50 % in Water (Syg) 50 ML SYRINGE IVP PRN (21:58)
[2020-01-05] MEDS: *HR* OxyCODONE Immed Rel 5 MG TABLET PO PRN (22:22)
[2020-01-05 22:28] LABS: Alanine Aminotransferase 12 Units/L (7-52); Albumin/Globulin Ratio 1.1 (1.1-2.2); Alkaline Phosphatase 69 Units/L (34-104); Aspartate Amino Transferase 16 Units/L (13-39); Bilirubin,Direct 0.1 mg/dL (0.0-0.2); Bilirubin,Indirect 0.2 mg/dL (0.0-1.0); Bilirubin,Total 0.3 mg/dL (0.3-1.0); Globulin 3.5 g/dL (2.4-3.5); Lipase 83 Units/L (11-82); Total Protein 7.5 g/dL (6.4-8.9)
[2020-01-05] MEDS: lisinopriL 10 MG TABLET PO SCH (22:40)
[2020-01-05] MEDS: *HR* Ticagrelor 90 MG TABLET PO SCH (22:41)
[2020-01-05] MEDS: Ranolazine 500 MG TAB.ER.12H PO SCH (22:41)
[2020-01-06] MEDS: Insulin LISPRO 300 UNITS/3 ML VIAL SQ SCH ×4 (01:18→17:03)
[2020-01-06] MEDS: 0.9 % Sodium Chloride 1,000 ML IVC SCH ×3 (03:46→20:49)
[2020-01-06 05:40] LABS: Basophils % 0.5 %; Eosinophils # 0.2 K/mcL (0.0-0.6); Eosinophils % 2.6 %; Hematocrit 35.6 % (35.3-44.9); Hemoglobin 10.7 g/dL (11.5-15.4); Immature Granulocytes % 0.3 % (0-4); Lymphocytes # 1.3 K/mcL (0.6-4.6); Lymphocytes % 20.1 %; Mean Corpuscular HGB Conc 30.1 g/dL (31.6-35.5); Mean Corpuscular Hemoglobin 29.5 pg (28.0-33.3); Mean Corpuscular Volume 98.1 fL (83.0-100.0); Mean Platelet Volume 10.5 fL (9.4-12.4); Monocytes # 0.6 K/mcL (0.0-1.3); Monocytes % 9.6 %; Neutrophils # 4.4 K/mcL (1.6-8.9); Platelet Count 235 K/mcL (140-400); Red Blood Count 3.63 M/mcL (3.82-4.97); Red Cell Distribution Width 14.1 % (11.5-14.5); Segmented Neutrophils % 66.9 %; White Blood Count 6.6 K/mcL (4.3-11.1)
[2020-01-06 05:56] LABS: Calcium 9.2 mg/dL (8.6-10.3); Magnesium 1.9 mg/dL (1.6-2.6); Phosphorous 5.1 mg/dL (2.7-4.5); Potassium 5.2 mEq/L (3.5-5.1)
[2020-01-06] MEDS: Gabapentin 100 MG CAPSULE PO SCH ×3 (08:46→20:49)
[2020-01-06] MEDS: *HR* OxyCODONE Immed Rel 5 MG TABLET PO PRN ×2 (08:46→17:06)
[2020-01-06] MEDS ORDERED: Topiramate 25 MG TABLET PO PRN (09:22)
[2020-01-06] MEDS: lisinopriL 10 MG TABLET PO SCH (10:19)
[2020-01-06] MEDS: *HR* Ticagrelor 90 MG TABLET PO SCH ×2 (10:26→20:48)
[2020-01-06] MEDS: Ranolazine 500 MG TAB.ER.12H PO SCH ×2 (10:26→20:49)
[2020-01-06] MEDS: carvediloL 25 MG TABLET PO SCH ×2 (10:26→16:58)
[2020-01-06] MEDS: Aspirin 81 MG TAB.CHEW PO SCH (10:27)
[2020-01-06] MEDS: Isosorbide MONOnitrate (24 HR) 60 MG TAB.ER.24H PO SCH (10:32)
[2020-01-06 13:32] LABS: Bilirubin,Urine Negative (Negative); Blood,Urine Negative (Negative); Clarity,Urine Cloudy (Clear); Color,Urine Yellow (Yellow); Glucose,Urine (UA) Normal (Normal); Ketones,Urine Negative (Negative); Leukocyte Esterase,Urine Small (Negative); Nitrite,Urine Negative (Negative); PH,Urine 5.5 pH Units (5.0-8.0); Protein,Urine Negative (Neg-Trace); Specific Gravity,Urine 1.021 (1.010-1.025); Urobilinogen,Urine Normal (Normal)
[2020-01-06 13:33] LABS: Hyaline Casts,Urine None Seen per lpf (None-Few); Squamous Epithelial Cell,Urine Many per lpf (None-Few)
[2020-01-06 13:55] LABS: Bacteria,Urine Moderate per hpf (None-Few)
[2020-01-06] MEDS: *HR* Heparin 5,000 UNIT/ML VIAL SQ SCH (17:06)
[2020-01-06] MEDS: *HR* HYDROcodone/Acet 5/325 mg TABLET PO PRN (20:48)
[2020-01-07] MEDS: *HR* OxyCODONE Immed Rel 5 MG TABLET PO PRN ×2 (02:05→13:23)
[2020-01-07 02:29] LABS: Hemoglobin 9.6 g/dL (11.5-15.4); Mean Corpuscular Hemoglobin 30.5 pg (28.0-33.3); Mean Corpuscular Volume 98.4 fL (83.0-100.0); Mean Platelet Volume 10.5 fL (9.4-12.4); Platelet Count 220 K/mcL (140-400); Red Blood Count 3.15 M/mcL (3.82-4.97); Red Cell Distribution Width 14.3 % (11.5-14.5); White Blood Count 5.9 K/mcL (4.3-11.1)
[2020-01-07 02:46] LABS: Calcium 8.8 mg/dL (8.6-10.3); Potassium 5.7 mEq/L (3.5-5.1)
[2020-01-07] MEDS: 0.9 % Sodium Chloride 1,000 ML IVC SCH (05:06)
[2020-01-07] MEDS: *HR* Heparin 5,000 UNIT/ML VIAL SQ SCH ×2 (05:06→17:14)
[2020-01-07] MEDS: *HR* HYDROcodone/Acet 5/325 mg TABLET PO PRN (05:15)
[2020-01-07] MEDS: Ranolazine 500 MG TAB.ER.12H PO SCH ×2 (09:20→20:42)
[2020-01-07] MEDS: Aspirin 81 MG TAB.CHEW PO SCH (09:20)
[2020-01-07] MEDS: carvediloL 25 MG TABLET PO SCH ×2 (09:21→17:14)
[2020-01-07] MEDS: Gabapentin 100 MG CAPSULE PO SCH ×2 (09:21→20:42)
[2020-01-07] MEDS: *HR* Ticagrelor 90 MG TABLET PO SCH ×2 (09:22→20:42)
[2020-01-07] MEDS: Isosorbide MONOnitrate (24 HR) 60 MG TAB.ER.24H PO SCH (09:22)
[2020-01-07] MEDS: Insulin LISPRO 300 UNITS/3 ML VIAL SQ SCH ×3 (09:39→17:17)
[2020-01-08 00:55] LABS: Hematocrit 30.6 % (35.3-44.9); Hemoglobin 9.5 g/dL (11.5-15.4); Mean Corpuscular Hemoglobin 30.4 pg (28.0-33.3); Mean Corpuscular Volume 97.8 fL (83.0-100.0); Mean Platelet Volume 10.4 fL (9.4-12.4); Platelet Count 211 K/mcL (140-400); Red Blood Count 3.13 M/mcL (3.82-4.97); Red Cell Distribution Width 14.2 % (11.5-14.5); White Blood Count 5.9 K/mcL (4.3-11.1)
[2020-01-08 01:18] LABS: Calcium 8.5 mg/dL (8.6-10.3); Phosphorous 4.4 mg/dL (2.7-4.5); Potassium 4.7 mEq/L (3.5-5.1)
[2020-01-08] MEDS: *HR* Heparin 5,000 UNIT/ML VIAL SQ SCH (05:37)
[2020-01-08 07:10] VITALS: BP 125/80
[2020-01-08] MEDS: Ranolazine 500 MG TAB.ER.12H PO SCH (07:31)
[2020-01-08] MEDS: Aspirin 81 MG TAB.CHEW PO SCH (07:31)
[2020-01-08] MEDS: *HR* Ticagrelor 90 MG TABLET PO SCH (07:31)
[2020-01-08] MEDS: Gabapentin 100 MG CAPSULE PO SCH (07:31)
[2020-01-08] MEDS: Isosorbide MONOnitrate (24 HR) 60 MG TAB.ER.24H PO SCH (07:31)
[2020-01-08] MEDS: carvediloL 25 MG TABLET PO SCH (07:31)
[2020-01-08] MEDS: Insulin LISPRO 300 UNITS/3 ML VIAL SQ SCH ×2 (07:32→11:45)
[2020-01-08] MEDS: *HR* OxyCODONE Immed Rel 5 MG TABLET PO PRN (11:44)
== END 2020-01-08 12:41 | disposition home or self-care (01) ==
LOC: 3BNU 17:27 → EMEROOARM 17:27 → 3BNU 20:01
PROVIDERS: ADMIT Internal Medicine; ATTEND Internal Medicine

== ENCOUNTER 2020-01-09 22:17 | Observation (INO) ==
[2020-01-09] MEDS ORDERED: Aspirin 81 MG TAB.CHEW PO ONE (22:22)
[2020-01-09 22:46] LABS: Basophils % 0.4 %; Eosinophils # 0.3 K/mcL (0.0-0.6); Eosinophils % 3.8 %; Hematocrit 29.3 % (35.3-44.9); Hemoglobin 9.3 g/dL (11.5-15.4); Immature Granulocytes % 0.4 % (0-4); Lymphocytes # 1.1 K/mcL (0.6-4.6); Lymphocytes % 15.6 %; Mean Corpuscular HGB Conc 31.7 g/dL (31.6-35.5); Mean Corpuscular Hemoglobin 30.3 pg (28.0-33.3); Mean Corpuscular Volume 95.4 fL (83.0-100.0); Mean Platelet Volume 9.8 fL (9.4-12.4); Monocytes # 0.6 K/mcL (0.0-1.3); Monocytes % 8.5 %; Neutrophils # 5.2 K/mcL (1.6-8.9); Platelet Count 206 K/mcL (140-400); Red Blood Count 3.07 M/mcL (3.82-4.97); Red Cell Distribution Width 14.3 % (11.5-14.5); Segmented Neutrophils % 71.3 %; White Blood Count 7.3 K/mcL (4.3-11.1)
[2020-01-09 23:00] LABS: INR 1.1; Prothrombin Time 12.3 Seconds (9.4-12.1)
[2020-01-09 23:02] LABS: Activated Partial Thrombo Time 32.4 Seconds (26.0-36.0)
[2020-01-09 23:06] LABS: BUN/Creatinine Ratio 21 (6-26); Blood Urea Nitrogen 30 mg/dL (6-20); Carbon Dioxide 22 mEq/L (23-29); Chloride 106 mEq/L (98-107); Glucose 89 mg/dL (70-105); Osmolality,Calculated 288 (280-300); Potassium 4.5 mEq/L (3.5-5.1); Sodium 136 mEq/L (136-145); eGFR For African Americans 45 (> 60); eGFR For Non-African Americans 37 (> 60)
[2020-01-09 23:07] LABS: Troponin I < 0.03 ng/mL (< 0.04)
[2020-01-09 23:42] LABS: Bilirubin,Urine Negative (Negative); Blood,Urine Negative (Negative); Clarity,Urine Clear (Clear); Color,Urine Yellow (Yellow); Glucose,Urine (UA) Normal (Normal); Ketones,Urine Negative (Negative); Leukocyte Esterase,Urine Moderate (Negative); Nitrite,Urine Negative (Negative); PH,Urine 5.5 pH Units (5.0-8.0); Protein,Urine Negative (Neg-Trace); Specific Gravity,Urine 1.021 (1.010-1.025); Urobilinogen,Urine Normal (Normal)
[2020-01-09 23:44] LABS: Bacteria,Urine Few per hpf (None-Few); Hyaline Casts,Urine None Seen per lpf (None-Few); Squamous Epithelial Cell,Urine Many per lpf (None-Few); WBC,Urine 15-30 per hpf (0-3)
[2020-01-09] MEDS ORDERED: *HR* Etomidate 20 MG/10 ML AMPUL IVP ONE (23:54)
[2020-01-09] MEDS ORDERED: *HR* FentaNYL (PF) 100 MCG/2 ML VIAL IVP ONE (23:54)
[2020-01-10] MEDS ORDERED: *HR* Enoxaparin 120 MG/0.8 ML SYRINGE SQ ONE (01:04)
[2020-01-10] MEDS ORDERED: Naloxone 0.4 MG/ML INJ IVP PRN (02:20)
[2020-01-10] MEDS ORDERED: Mag Hydrox/Al Hydrox/Simeth 30 ML UDC PO PRN (02:20)
[2020-01-10] MEDS ORDERED: *HR* Promethazine 25 MG/ML VIAL IVP PRN (02:20)
[2020-01-10] MEDS ORDERED: tiZANidine 4 MG TABLET PO PRN (02:26)
[2020-01-10] MEDS: Gabapentin 100 MG CAPSULE PO SCH ×3 (03:27→20:18)
[2020-01-10 03:51] LABS: Hematocrit 30.3 % (35.3-44.9); Hemoglobin 9.6 g/dL (11.5-15.4); Mean Corpuscular HGB Conc 31.7 g/dL (31.6-35.5); Mean Corpuscular Hemoglobin 30.4 pg (28.0-33.3); Mean Corpuscular Volume 95.9 fL (83.0-100.0); Mean Platelet Volume 10.3 fL (9.4-12.4); Platelet Count 192 K/mcL (140-400); Red Blood Count 3.16 M/mcL (3.82-4.97); Red Cell Distribution Width 14.3 % (11.5-14.5); White Blood Count 6.7 K/mcL (4.3-11.1)
[2020-01-10 04:11] LABS: Magnesium 1.5 mg/dL (1.6-2.6)
[2020-01-10 05:57] LABS: Troponin I < 0.03 ng/mL (< 0.04)
[2020-01-10] MEDS: Insulin LISPRO 300 UNITS/3 ML VIAL SQ SCH ×3 (09:18→16:58)
[2020-01-10] MEDS: Aspirin 81 MG TAB.CHEW PO SCH (09:19)
[2020-01-10] MEDS: *HR* Ticagrelor 90 MG TABLET PO SCH ×2 (09:19→20:18)
[2020-01-10] MEDS: Isosorbide MONOnitrate (24 HR) 60 MG TAB.ER.24H PO SCH (09:19)
[2020-01-10] MEDS: Ranolazine 500 MG TAB.ER.12H PO SCH ×2 (09:19→20:18)
[2020-01-10] MEDS: carvediloL 25 MG TABLET PO SCH ×2 (09:19→15:53)
[2020-01-10] MEDS: lisinopriL 5 MG TABLET PO SCH ×2 (09:19→20:18)
[2020-01-10] MEDS: Acetaminophen 325 MG TABLET PO PRN ×2 (15:41→23:38)
[2020-01-10] MEDS: Nitroglycerin 0.4 MG TAB.SUBL SL PRN ×4 (15:41→23:42)
[2020-01-11 02:39] LABS: Calcium 8.9 mg/dL (8.6-10.3); Magnesium 1.8 mg/dL (1.6-2.6); Potassium 4.5 mEq/L (3.5-5.1)
[2020-01-11 03:02] LABS: Hematocrit 30.4 % (35.3-44.9); Hemoglobin 9.5 g/dL (11.5-15.4); Mean Corpuscular HGB Conc 31.3 g/dL (31.6-35.5)
[2020-01-11 03:04] LABS: Basophils % 0.4 %; Eosinophils # 0.3 K/mcL (0.0-0.6); Eosinophils % 3.6 %; Immature Granulocytes % 0.4 % (0-4); Immature Platelets 4.6 % (1.1-6.1); Lymphocytes % 14.9 %; Mean Corpuscular Volume 95.9 fL (83.0-100.0); Mean Platelet Volume 11.2 fL (9.4-12.4); Monocytes # 0.6 K/mcL (0.0-1.3); Neutrophils # 5.1 K/mcL (1.6-8.9); Platelet Count 174 K/mcL (140-400); Red Blood Count 3.17 M/mcL (3.82-4.97); Red Cell Distribution Width 14.4 % (11.5-14.5); Segmented Neutrophils % 72.7 %
[2020-01-11 03:31] LABS: Platelet Estimate Normal (Normal)
[2020-01-11 08:16] LABS: Estimated Average Glucose 151 mg/dl
[2020-01-11] MEDS: Insulin LISPRO 300 UNITS/3 ML VIAL SQ SCH ×3 (08:34→17:01)
[2020-01-11] MEDS: Isosorbide MONOnitrate (24 HR) 60 MG TAB.ER.24H PO SCH (09:13)
[2020-01-11] MEDS: Gabapentin 100 MG CAPSULE PO SCH ×2 (09:13→21:01)
[2020-01-11] MEDS: carvediloL 25 MG TABLET PO SCH ×2 (09:14→17:10)
[2020-01-11] MEDS: *HR* Ticagrelor 90 MG TABLET PO SCH ×2 (09:14→21:01)
[2020-01-11] MEDS: lisinopriL 5 MG TABLET PO SCH ×2 (09:14→21:01)
[2020-01-11] MEDS: Ranolazine 500 MG TAB.ER.12H PO SCH ×2 (09:14→21:01)
[2020-01-11] MEDS: Aspirin 81 MG TAB.CHEW PO SCH (09:14)
[2020-01-11] MEDS: cephALEXin 500 MG CAPSULE PO SCH ×2 (11:34→21:02)
[2020-01-11] MEDS ORDERED: *HR* Enoxaparin 40 MG/0.4 ML SYRINGE SQ ONE ×2 (12:02→13:00)
[2020-01-12] MEDS: Acetaminophen 325 MG TABLET PO PRN (02:52)
[2020-01-12] MEDS: Insulin LISPRO 300 UNITS/3 ML VIAL SQ SCH (08:28)
[2020-01-12 09:01] VITALS: BP 160/84
[2020-01-12] MEDS: cephALEXin 500 MG CAPSULE PO SCH (09:20)
[2020-01-12] MEDS: Isosorbide MONOnitrate (24 HR) 60 MG TAB.ER.24H PO SCH (09:20)
[2020-01-12] MEDS: lisinopriL 5 MG TABLET PO SCH (09:20)
[2020-01-12] MEDS: Gabapentin 100 MG CAPSULE PO SCH (09:20)
[2020-01-12] MEDS: carvediloL 25 MG TABLET PO SCH (09:21)
[2020-01-12] MEDS: *HR* Ticagrelor 90 MG TABLET PO SCH (09:21)
[2020-01-12] MEDS: Aspirin 81 MG TAB.CHEW PO SCH (09:21)
[2020-01-12] MEDS: Ranolazine 500 MG TAB.ER.12H PO SCH (09:21)
== END 2020-01-12 15:41 | disposition home or self-care (01) ==
LOC: EMEROOARM 22:17 → 3BNU 22:17 → SUATTDRO 01-10 01:03 → 3BNU 01-10 01:37
PROVIDERS: ADMIT Internal Medicine; ATTEND Internal Medicine

== ENCOUNTER 2020-01-29 16:03 | Inpatient (IN) ==
[2020-01-29] MEDS ORDERED: Nitroglycerin 0.4 MG TAB.SUBL SL PRN ×2 (16:13→19:41)
[2020-01-29] MEDS ORDERED: Aspirin 81 MG TAB.CHEW PO ONE (16:13)
[2020-01-29 16:30] LABS: Basophils % 0.6 %; Eosinophils # 0.1 K/mcL (0.0-0.6); Eosinophils % 1.9 %; Hematocrit 31.9 % (35.3-44.9); Immature Granulocytes % 0.3 % (0-4); Lymphocytes # 1.3 K/mcL (0.6-4.6); Mean Corpuscular HGB Conc 31.3 g/dL (31.6-35.5); Mean Corpuscular Hemoglobin 30.1 pg (28.0-33.3); Mean Corpuscular Volume 96.1 fL (83.0-100.0); Mean Platelet Volume 10.6 fL (9.4-12.4); Monocytes # 0.7 K/mcL (0.0-1.3); Monocytes % 10.1 %; Neutrophils # 4.6 K/mcL (1.6-8.9); Platelet Count 213 K/mcL (140-400); Red Blood Count 3.32 M/mcL (3.82-4.97); Red Cell Distribution Width 14.2 % (11.5-14.5); Segmented Neutrophils % 68.1 %; White Blood Count 6.7 K/mcL (4.3-11.1)
[2020-01-29 16:35] LABS: INR 1.1; Prothrombin Time 12.5 Seconds (9.4-12.1)
[2020-01-29 17:00] LABS: Alanine Aminotransferase 17 Units/L (7-52); Albumin 3.8 g/dL (3.5-5.7); Albumin/Globulin Ratio 1.2 (1.1-2.2); Alkaline Phosphatase 62 Units/L (34-104); Aspartate Amino Transferase 11 Units/L (13-39); BUN/Creatinine Ratio 20 (6-26); Bilirubin,Total 0.3 mg/dL (0.3-1.0); Blood Urea Nitrogen 34 mg/dL (6-20); Calcium 9.3 mg/dL (8.6-10.3); Carbon Dioxide 22 mEq/L (23-29); Chloride 106 mEq/L (98-107); Globulin 3.2 g/dL (2.4-3.5); Glucose 111 mg/dL (70-105); Lipase 66 Units/L (11-82); Osmolality,Calculated 294 (280-300); Potassium 4.6 mEq/L (3.5-5.1); Sodium 138 mEq/L (136-145); Troponin I < 0.03 ng/mL (< 0.04); eGFR For African Americans 38 (> 60); eGFR For Non-African Americans 31 (> 60)
[2020-01-29] MEDS ORDERED: *HR* FentaNYL (PF) 100 MCG/2 ML VIAL IVP ONE (17:05)
[2020-01-29] MEDS ORDERED: Ondansetron ODT 4 MG TAB.RAPDIS SL PRN (17:59)
[2020-01-29] MEDS ORDERED: Naloxone 0.4 MG/ML INJ IVP PRN (17:59)
[2020-01-29] MEDS ORDERED: MOM Conc 10 ML UD.LIQ PO PRN (17:59)
[2020-01-29] MEDS ORDERED: Mag Hydrox/Al Hydrox/Simeth 30 ML UDC PO PRN (17:59)
[2020-01-29] MEDS ORDERED: tiZANidine 4 MG TABLET PO PRN (19:41)
[2020-01-29] MEDS: Ranolazine 500 MG TAB.ER.12H PO SCH (21:22)
[2020-01-29] MEDS: Gabapentin 100 MG CAPSULE PO SCH (21:22)
[2020-01-29] MEDS: lisinopriL 10 MG TABLET PO SCH (21:23)
[2020-01-29] MEDS: *HR* Ticagrelor 90 MG TABLET PO SCH (21:23)
[2020-01-30 06:37] LABS: Hematocrit 32.1 % (35.3-44.9); Hemoglobin 9.9 g/dL (11.5-15.4); Mean Corpuscular HGB Conc 30.8 g/dL (31.6-35.5); Mean Corpuscular Hemoglobin 29.9 pg (28.0-33.3); Mean Platelet Volume 10.9 fL (9.4-12.4); Platelet Count 207 K/mcL (140-400); Red Blood Count 3.31 M/mcL (3.82-4.97); Red Cell Distribution Width 14.3 % (11.5-14.5); White Blood Count 6.3 K/mcL (4.3-11.1)
[2020-01-30 06:56] LABS: Calcium 8.9 mg/dL (8.6-10.3); Magnesium 1.7 mg/dL (1.6-2.6); Potassium 4.3 mEq/L (3.5-5.1)
[2020-01-30 06:57] LABS: Chol/HDL Ratio 4.9 (0-4.9)
[2020-01-30] MEDS ORDERED: predniSONE 20 MG TABLET PO ONE (10:45)
[2020-01-30] MEDS: Aspirin 81 MG TAB.CHEW PO SCH (11:35)
[2020-01-30] MEDS: Ranolazine 500 MG TAB.ER.12H PO SCH ×2 (11:36→20:07)
[2020-01-30] MEDS: carvediloL 25 MG TABLET PO SCH ×2 (11:36→15:59)
[2020-01-30] MEDS: lisinopriL 10 MG TABLET PO SCH ×2 (11:36→20:07)
[2020-01-30] MEDS: Isosorbide MONOnitrate (24 HR) 60 MG TAB.ER.24H PO SCH (11:36)
[2020-01-30] MEDS: Gabapentin 100 MG CAPSULE PO SCH ×2 (11:37→20:06)
[2020-01-30] MEDS: *HR* Ticagrelor 90 MG TABLET PO SCH ×2 (11:37→20:06)
[2020-01-31 06:17] LABS: Hematocrit 30.8 % (35.3-44.9); Hemoglobin 9.9 g/dL (11.5-15.4); Mean Corpuscular HGB Conc 32.1 g/dL (31.6-35.5); Mean Corpuscular Hemoglobin 30.9 pg (28.0-33.3); Mean Corpuscular Volume 96.3 fL (83.0-100.0); Mean Platelet Volume 10.7 fL (9.4-12.4); Platelet Count 244 K/mcL (140-400); Red Cell Distribution Width 14.1 % (11.5-14.5); White Blood Count 12.3 K/mcL (4.3-11.1)
[2020-01-31 06:29] LABS: Calcium 9.2 mg/dL (8.6-10.3); Potassium 4.7 mEq/L (3.5-5.1)
[2020-01-31] MEDS ORDERED: 0.9 % Sodium Chloride 1,000 ML IVC SCH (07:45)
[2020-01-31] MEDS: *HR* Ticagrelor 90 MG TABLET PO SCH ×2 (08:50→20:09)
[2020-01-31] MEDS: Gabapentin 100 MG CAPSULE PO SCH ×2 (08:50→20:09)
[2020-01-31] MEDS: Ranolazine 500 MG TAB.ER.12H PO SCH ×2 (08:51→20:09)
[2020-01-31] MEDS: carvediloL 25 MG TABLET PO SCH ×2 (08:51→16:30)
[2020-01-31] MEDS: Aspirin 81 MG TAB.CHEW PO SCH (08:51)
[2020-01-31] MEDS: Isosorbide MONOnitrate (24 HR) 60 MG TAB.ER.24H PO SCH (08:51)
[2020-01-31] MEDS ORDERED: predniSONE 20 MG TABLET PO SCH (09:00)
[2020-01-31 17:16] LABS: Bilirubin,Urine Negative (Negative); Blood,Urine Negative (Negative); Clarity,Urine Cloudy (Clear); Color,Urine Yellow (Yellow); Glucose,Urine (UA) Normal (Normal); Ketones,Urine Negative (Negative); Leukocyte Esterase,Urine Negative (Negative); Nitrite,Urine Negative (Negative); PH,Urine 5.5 pH Units (5.0-8.0); Protein,Urine Negative (Neg-Trace); Specific Gravity,Urine 1.025 (1.010-1.025); Urobilinogen,Urine Normal (Normal)
[2020-01-31 17:19] LABS: Bacteria,Urine Few per hpf (None-Few); Squamous Epithelial Cell,Urine Many per lpf (None-Few); WBC,Urine 0-3 per hpf (0-3)
[2020-01-31 17:33] LABS: Hyaline Casts,Urine Few per lpf (None-Few); RBC,Urine 0-3 per hpf (0-3)
[2020-01-31 17:52] LABS: Calcium 9.2 mg/dL (8.6-10.3); Potassium 4.4 mEq/L (3.5-5.1)
[2020-01-31 18:32] LABS: Sodium, Urine 71.3 mEq/L
[2020-02-01] MEDS: 0.9 % Sodium Chloride 1,000 ML IVC SCH ×4 (02:35→22:59)
[2020-02-01 06:28] LABS: Basophils % 0.4 %; Eosinophils # 0.3 K/mcL (0.0-0.6); Eosinophils % 3.3 %; Hematocrit 29.1 % (35.3-44.9); Hemoglobin 8.9 g/dL (11.5-15.4); Immature Granulocytes % 0.7 % (0-4); Lymphocytes # 1.5 K/mcL (0.6-4.6); Mean Corpuscular HGB Conc 30.6 g/dL (31.6-35.5); Mean Corpuscular Hemoglobin 29.9 pg (28.0-33.3); Mean Corpuscular Volume 97.7 fL (83.0-100.0); Mean Platelet Volume 10.7 fL (9.4-12.4); Monocytes # 0.6 K/mcL (0.0-1.3); Monocytes % 6.6 %; Neutrophils # 6.7 K/mcL (1.6-8.9); Platelet Count 201 K/mcL (140-400); Red Blood Count 2.98 M/mcL (3.82-4.97); Red Cell Distribution Width 14.2 % (11.5-14.5); White Blood Count 9.1 K/mcL (4.3-11.1)
[2020-02-01 06:47] LABS: Calcium 8.4 mg/dL (8.6-10.3); Potassium 4.6 mEq/L (3.5-5.1)
[2020-02-01] MEDS: Isosorbide MONOnitrate (24 HR) 60 MG TAB.ER.24H PO SCH (08:30)
[2020-02-01] MEDS: *HR* Ticagrelor 90 MG TABLET PO SCH ×2 (08:30→20:51)
[2020-02-01] MEDS: Ranolazine 500 MG TAB.ER.12H PO SCH ×2 (08:30→20:51)
[2020-02-01] MEDS: carvediloL 25 MG TABLET PO SCH ×2 (08:30→17:36)
[2020-02-01] MEDS: Aspirin 81 MG TAB.CHEW PO SCH (08:30)
[2020-02-01] MEDS: Gabapentin 100 MG CAPSULE PO SCH ×2 (08:31→20:51)
[2020-02-01] MEDS ORDERED: tiZANidine 4 MG TABLET PO ONE (20:00)
[2020-02-02 03:20] LABS: Basophils % 0.4 %; Eosinophils # 0.3 K/mcL (0.0-0.6); Eosinophils % 3.9 %; Hematocrit 28.7 % (35.3-44.9); Hemoglobin 8.7 g/dL (11.5-15.4); Immature Granulocytes % 0.4 % (0-4); Lymphocytes # 1.2 K/mcL (0.6-4.6); Mean Corpuscular HGB Conc 30.3 g/dL (31.6-35.5); Mean Corpuscular Hemoglobin 29.6 pg (28.0-33.3); Mean Corpuscular Volume 97.6 fL (83.0-100.0); Mean Platelet Volume 11.1 fL (9.4-12.4); Monocytes # 0.6 K/mcL (0.0-1.3); Monocytes % 7.5 %; Neutrophils # 5.6 K/mcL (1.6-8.9); Platelet Count 185 K/mcL (140-400); Red Blood Count 2.94 M/mcL (3.82-4.97); Red Cell Distribution Width 14.3 % (11.5-14.5); Segmented Neutrophils % 71.8 %; White Blood Count 7.8 K/mcL (4.3-11.1)
[2020-02-02 03:40] LABS: Calcium 8.3 mg/dL (8.6-10.3); Potassium 4.7 mEq/L (3.5-5.1)
[2020-02-02] MEDS: 0.9 % Sodium Chloride 1,000 ML IVC SCH ×2 (08:14→19:53)
[2020-02-02] MEDS: Aspirin 81 MG TAB.CHEW PO SCH (08:15)
[2020-02-02] MEDS: carvediloL 25 MG TABLET PO SCH ×2 (08:15→16:15)
[2020-02-02] MEDS: Ranolazine 500 MG TAB.ER.12H PO SCH ×2 (08:15→19:54)
[2020-02-02] MEDS: Isosorbide MONOnitrate (24 HR) 60 MG TAB.ER.24H PO SCH (08:15)
[2020-02-02] MEDS: *HR* Ticagrelor 90 MG TABLET PO SCH ×2 (08:15→19:54)
[2020-02-02] MEDS: Gabapentin 100 MG CAPSULE PO SCH ×2 (08:15→19:54)
[2020-02-03 02:40] LABS: Basophils % 0.3 %; Eosinophils # 0.3 K/mcL (0.0-0.6); Hematocrit 28.7 % (35.3-44.9); Hemoglobin 8.9 g/dL (11.5-15.4); Immature Granulocytes % 0.6 % (0-4); Lymphocytes # 1.1 K/mcL (0.6-4.6); Lymphocytes % 13.1 %; Mean Corpuscular Hemoglobin 30.1 pg (28.0-33.3); Mean Platelet Volume 11.1 fL (9.4-12.4); Monocytes # 0.7 K/mcL (0.0-1.3); Monocytes % 7.7 %; Neutrophils # 6.5 K/mcL (1.6-8.9); Platelet Count 189 K/mcL (140-400); Red Blood Count 2.96 M/mcL (3.82-4.97); Red Cell Distribution Width 14.2 % (11.5-14.5); Segmented Neutrophils % 75.3 %; White Blood Count 8.7 K/mcL (4.3-11.1)
[2020-02-03] MEDS: 0.9 % Sodium Chloride 1,000 ML IVC SCH ×2 (02:49→12:43)
[2020-02-03 02:57] LABS: Calcium 8.4 mg/dL (8.6-10.3); Potassium 4.8 mEq/L (3.5-5.1)
[2020-02-03 07:14] VITALS: BP 122/80
[2020-02-03] MEDS: Ranolazine 500 MG TAB.ER.12H PO SCH (08:26)
[2020-02-03] MEDS: Isosorbide MONOnitrate (24 HR) 60 MG TAB.ER.24H PO SCH (08:26)
[2020-02-03] MEDS: Gabapentin 100 MG CAPSULE PO SCH (08:27)
[2020-02-03] MEDS: *HR* Ticagrelor 90 MG TABLET PO SCH (08:27)
[2020-02-03] MEDS: Aspirin 81 MG TAB.CHEW PO SCH (08:27)
[2020-02-03] MEDS: carvediloL 25 MG TABLET PO SCH (08:27)
== END 2020-02-03 14:10 | disposition home or self-care (01) | DRG 198 ==
LOC: 3BNU 16:03 → EMEROOARM 16:03 → 3BNU 19:53
PROVIDERS: ADMIT Internal Medicine; ATTEND Internal Medicine

== ENCOUNTER 2020-03-23 15:49 | Observation (INO) ==
[2020-03-23] MEDS ORDERED: Aspirin 81 MG TAB.CHEW PO ONE (16:02)
[2020-03-23] MEDS ORDERED: Nitroglycerin 0.4 MG TAB.SUBL SL PRN (16:02)
[2020-03-23 16:34] LABS: Basophils % 0.2 %; Eosinophils # 0.2 K/mcL (0.0-0.6); Eosinophils % 2.4 %; Hematocrit 33.5 % (35.3-44.9); Hemoglobin 10.3 g/dL (11.5-15.4); Immature Granulocytes % 0.5 % (0-4); Lymphocytes # 1.4 K/mcL (0.6-4.6); Lymphocytes % 16.9 %; Mean Corpuscular HGB Conc 30.7 g/dL (31.6-35.5); Mean Corpuscular Volume 94.4 fL (83.0-100.0); Mean Platelet Volume 10.2 fL (9.4-12.4); Monocytes # 0.7 K/mcL (0.0-1.3); Monocytes % 8.3 %; Platelet Count 253 K/mcL (140-400); Red Blood Count 3.55 M/mcL (3.82-4.97); Red Cell Distribution Width 14.1 % (11.5-14.5); Segmented Neutrophils % 71.7 %; White Blood Count 8.4 K/mcL (4.3-11.1)
[2020-03-23 16:42] LABS: Activated Partial Thrombo Time 31.1 Seconds (26.0-36.0); Prothrombin Time 11.9 Seconds (9.4-12.1)
[2020-03-23 17:07] LABS: BUN/Creatinine Ratio 23 (6-26); Blood Urea Nitrogen 36 mg/dL (6-20); Calcium 8.7 mg/dL (8.6-10.3); Carbon Dioxide 19 mEq/L (23-29); Chloride 106 mEq/L (98-107); Glucose 118 mg/dL (70-105); Osmolality,Calculated 287 (280-300); Potassium 4.6 mEq/L (3.5-5.1); Sodium 134 mEq/L (136-145); Troponin I < 0.03 ng/mL (< 0.04); eGFR For African Americans 41 (> 60); eGFR For Non-African Americans 34 (> 60)
[2020-03-23] MEDS ORDERED: 0.9 % Sodium Chloride 500 ML IVC ONE (17:29)
[2020-03-23] MEDS ORDERED: Naloxone 0.4 MG/ML INJ IVP PRN (17:59)
[2020-03-23] MEDS: *HR* Heparin 5,000 UNIT/ML VIAL SQ SCH (20:31)
[2020-03-23] MEDS ORDERED: Ranolazine 500 MG TAB.ER.12H PO SCH (21:00)
[2020-03-23] MEDS ORDERED: Gabapentin 100 MG CAPSULE PO SCH (21:00)
[2020-03-23] MEDS ORDERED: lisinopriL 10 MG TABLET PO SCH (21:00)
[2020-03-23] MEDS ORDERED: *HR* Ticagrelor 90 MG TABLET PO SCH (21:00)
[2020-03-24] MEDS: *HR* Heparin 5,000 UNIT/ML VIAL SQ SCH (05:08)
[2020-03-24 05:30] LABS: Basophils % 0.5 %; Eosinophils # 0.2 K/mcL (0.0-0.6); Eosinophils % 2.8 %; Hematocrit 32.2 % (35.3-44.9); Hemoglobin 10.2 g/dL (11.5-15.4); Immature Granulocytes % 0.6 % (0-4); Lymphocytes # 1.5 K/mcL (0.6-4.6); Lymphocytes % 19.1 %; Mean Corpuscular HGB Conc 31.7 g/dL (31.6-35.5); Mean Corpuscular Hemoglobin 29.8 pg (28.0-33.3); Mean Corpuscular Volume 94.2 fL (83.0-100.0); Mean Platelet Volume 10.6 fL (9.4-12.4); Monocytes # 0.7 K/mcL (0.0-1.3); Monocytes % 8.5 %; Neutrophils # 5.5 K/mcL (1.6-8.9); Platelet Count 236 K/mcL (140-400); Red Blood Count 3.42 M/mcL (3.82-4.97); Red Cell Distribution Width 14.4 % (11.5-14.5); Segmented Neutrophils % 68.5 %
[2020-03-24 05:51] LABS: Calcium 8.9 mg/dL (8.6-10.3); Potassium 4.6 mEq/L (3.5-5.1)
[2020-03-24 07:05] VITALS: BP 100/75
[2020-03-24] MEDS ORDERED: carvediloL 25 MG TABLET PO SCH ×2 (08:00)
[2020-03-24] MEDS ORDERED: Aspirin 81 MG TAB.CHEW PO SCH (09:00)
== END 2020-03-24 13:30 | disposition home or self-care (01) ==
LOC: 3BNU 15:49 → EMEROOARM 15:49 → SUATTDRO 17:55 → 3BNU 18:27
PROVIDERS: ADMIT Internal Medicine; ATTEND Student in an Organized Health Care Education/Training Program

== ENCOUNTER 2020-04-01 18:14 | Observation (INO) ==
[2020-04-01 18:50] LABS: Basophils # 0.1 K/mcL (0.0-0.2); Basophils % 0.6 %; Eosinophils # 0.2 K/mcL (0.0-0.6); Eosinophils % 1.7 %; Hematocrit 30.5 % (35.3-44.9); Hemoglobin 9.7 g/dL (11.5-15.4); Immature Granulocytes % 0.5 % (0-4); Lymphocytes # 1.5 K/mcL (0.6-4.6); Lymphocytes % 14.4 %; Mean Corpuscular HGB Conc 31.8 g/dL (31.6-35.5); Mean Corpuscular Hemoglobin 30.1 pg (28.0-33.3); Mean Corpuscular Volume 94.7 fL (83.0-100.0); Mean Platelet Volume 10.5 fL (9.4-12.4); Monocytes # 0.8 K/mcL (0.0-1.3); Monocytes % 7.7 %; Neutrophils # 7.6 K/mcL (1.6-8.9); Platelet Count 257 K/mcL (140-400); Red Blood Count 3.22 M/mcL (3.82-4.97); Red Cell Distribution Width 14.6 % (11.5-14.5); Segmented Neutrophils % 75.1 %; White Blood Count 10.1 K/mcL (4.3-11.1)
[2020-04-01 19:00] LABS: INR 1.1
[2020-04-01 19:02] LABS: Activated Partial Thrombo Time 31.6 Seconds (26.0-36.0)
[2020-04-01 19:11] LABS: BUN/Creatinine Ratio 22 (6-26); Blood Urea Nitrogen 38 mg/dL (6-20); Calcium 8.9 mg/dL (8.6-10.3); Carbon Dioxide 20 mEq/L (23-29); Chloride 108 mEq/L (98-107); Glucose 183 mg/dL (70-105); Osmolality,Calculated 296 (280-300); Potassium 4.1 mEq/L (3.5-5.1); Sodium 136 mEq/L (136-145); eGFR For African Americans 38 (> 60); eGFR For Non-African Americans 31 (> 60)
[2020-04-01 19:12] LABS: Troponin I < 0.03 ng/mL (< 0.04)
[2020-04-01] MEDS ORDERED: Naloxone 0.4 MG/ML INJ IVP PRN (23:24)
[2020-04-01] MEDS ORDERED: *HR* HYDROcodone/Acet 5/325 mg TABLET PO PRN (23:24)
[2020-04-01] MEDS: *HR* Ticagrelor 90 MG TABLET PO SCH (23:53)
[2020-04-01] MEDS: Gabapentin 100 MG CAPSULE PO SCH (23:53)
[2020-04-02 00:58] LABS: Basophils % 0.4 %; Eosinophils # 0.2 K/mcL (0.0-0.6); Eosinophils % 2.1 %; Hematocrit 32.7 % (35.3-44.9); Hemoglobin 10.3 g/dL (11.5-15.4); Immature Granulocytes % 0.7 % (0-4); Lymphocytes # 1.4 K/mcL (0.6-4.6); Mean Corpuscular HGB Conc 31.5 g/dL (31.6-35.5); Mean Corpuscular Hemoglobin 29.9 pg (28.0-33.3); Mean Corpuscular Volume 95.1 fL (83.0-100.0); Mean Platelet Volume 10.3 fL (9.4-12.4); Monocytes # 0.7 K/mcL (0.0-1.3); Monocytes % 7.7 %; Neutrophils # 6.1 K/mcL (1.6-8.9); Platelet Count 250 K/mcL (140-400); Red Blood Count 3.44 M/mcL (3.82-4.97); Red Cell Distribution Width 14.6 % (11.5-14.5); Segmented Neutrophils % 72.1 %; White Blood Count 8.5 K/mcL (4.3-11.1)
[2020-04-02 01:10] LABS: Albumin 3.7 g/dL (3.5-5.7); Albumin/Globulin Ratio 1.1 (1.1-2.2); Bilirubin,Total 0.2 mg/dL (0.3-1.0); Calcium 8.8 mg/dL (8.6-10.3); Globulin 3.4 g/dL (2.4-3.5); Magnesium 1.9 mg/dL (1.6-2.6); Potassium 4.1 mEq/L (3.5-5.1); Total Protein 7.1 g/dL (6.4-8.9)
[2020-04-02] MEDS ORDERED: *HR* Heparin 5,000 UNIT/ML VIAL SQ SCH (06:00)
[2020-04-02 07:43] LABS: Bilirubin,Urine Negative (Negative); Blood,Urine Negative (Negative); Clarity,Urine Clear (Clear); Color,Urine Light-Yellow (Yellow); Glucose,Urine (UA) Normal (Normal); Ketones,Urine Negative (Negative); Leukocyte Esterase,Urine Negative (Negative); Nitrite,Urine Negative (Negative); PH,Urine 5.5 pH Units (5.0-8.0); Protein,Urine Trace mg/dL (Neg-Trace); Specific Gravity,Urine 1.022 (1.010-1.025); Urobilinogen,Urine Normal (Normal)
[2020-04-02] MEDS ORDERED: carvediloL 25 MG TABLET PO SCH (08:00)
[2020-04-02] MEDS: Insulin LISPRO 300 UNITS/3 ML VIAL SQ SCH ×2 (08:07→12:43)
[2020-04-02] MEDS: *HR* Ticagrelor 90 MG TABLET PO SCH (08:18)
[2020-04-02] MEDS: Gabapentin 100 MG CAPSULE PO SCH (08:19)
[2020-04-02] MEDS ORDERED: Ranolazine 500 MG TAB.ER.12H PO SCH (09:00)
[2020-04-02] MEDS ORDERED: Aspirin 81 MG TAB.CHEW PO SCH (09:00)
[2020-04-02 12:24] VITALS: BP 146/73
== END 2020-04-02 14:21 | disposition home or self-care (01) ==
LOC: 3BNU 18:14 → EMEROOARM 18:14 → 3BNU 22:31
PROVIDERS: ADMIT Family Medicine; ATTEND Family Medicine

== ENCOUNTER 2020-05-06 11:11 | Inpatient (IN) ==
[2020-05-06] MEDS ORDERED: Morphine Sulfate 2 MG/ML SYRINGE IVP ONE (12:01)
[2020-05-06] MEDS ORDERED: Ondansetron 4 MG/2 ML VIAL IVP STA (12:02)
[2020-05-06 12:05] LABS: Basophils % 0.4 %; Eosinophils # 0.2 K/mcL (0.0-0.6); Eosinophils % 2.7 %; Hematocrit 32.5 % (35.3-44.9); Immature Granulocytes % 0.5 % (0-4); Lymphocytes # 1.2 K/mcL (0.6-4.6); Lymphocytes % 14.2 %; Mean Corpuscular HGB Conc 30.8 g/dL (31.6-35.5); Mean Corpuscular Hemoglobin 29.2 pg (28.0-33.3); Mean Corpuscular Volume 94.8 fL (83.0-100.0); Mean Platelet Volume 10.4 fL (9.4-12.4); Monocytes # 0.7 K/mcL (0.0-1.3); Monocytes % 8.4 %; Neutrophils # 6.1 K/mcL (1.6-8.9); Platelet Count 258 K/mcL (140-400); Red Blood Count 3.43 M/mcL (3.82-4.97); Red Cell Distribution Width 14.7 % (11.5-14.5); Segmented Neutrophils % 73.8 %; White Blood Count 8.3 K/mcL (4.3-11.1)
[2020-05-06 12:11] LABS: INR 1.2; Prothrombin Time 13.2 Seconds (9.4-12.1)
[2020-05-06 12:14] LABS: Activated Partial Thrombo Time 28.8 Seconds (26.0-36.0)
[2020-05-06] MEDS ORDERED: Aspirin 81 MG TAB.CHEW PO STA (12:16)
[2020-05-06 12:24] LABS: Albumin 3.9 g/dL (3.5-5.7); Albumin/Globulin Ratio 1.2 (1.1-2.2); Bilirubin,Indirect 0.3 mg/dL (0.0-1.0); Bilirubin,Total 0.3 mg/dL (0.3-1.0); Globulin 3.2 g/dL (2.4-3.5); Total Protein 7.1 g/dL (6.4-8.9)
[2020-05-06 12:28] LABS: BUN/Creatinine Ratio 24 (6-26); Blood Urea Nitrogen 56 mg/dL (6-20); Calcium 9.2 mg/dL (8.6-10.3); Carbon Dioxide 19 mEq/L (23-29); Chloride 103 mEq/L (98-107); Glucose 152 mg/dL (70-105); Osmolality,Calculated 290 (280-300); Potassium 5.7 mEq/L (3.5-5.1); Sodium 131 mEq/L (136-145); Troponin I < 0.03 ng/mL (< 0.04); eGFR For African Americans 26 (> 60); eGFR For Non-African Americans 21 (> 60)
[2020-05-06] MEDS ORDERED: Ondansetron ODT 4 MG TAB.RAPDIS SL PRN (14:43)
[2020-05-06] MEDS ORDERED: Naloxone 0.4 MG/ML INJ IVP PRN (14:43)
[2020-05-06] MEDS ORDERED: tiZANidine 4 MG TABLET PO PRN (16:59)
[2020-05-06] MEDS ORDERED: 0.9 % Sodium Chloride 1,000 ML IVC SCH (17:00)
[2020-05-06] MEDS: carvediloL 25 MG TABLET PO SCH (17:25)
[2020-05-06] MEDS: Gabapentin 100 MG CAPSULE PO SCH ×2 (17:25→21:18)
[2020-05-06] MEDS: Morphine Sulfate 2 MG/ML SYRINGE IVP PRN (17:25)
[2020-05-06] MEDS: Ranolazine 500 MG TAB.ER.12H PO SCH (21:17)
[2020-05-06] MEDS: *HR* Ticagrelor 90 MG TABLET PO SCH (21:18)
[2020-05-06] MEDS: Nitroglycerin 0.4 MG TAB.SUBL SL PRN ×2 (21:23→21:33)
[2020-05-07 00:51] LABS: Basophils % 0.3 %; Eosinophils # 0.3 K/mcL (0.0-0.6); Eosinophils % 2.8 %; Hematocrit 30.9 % (35.3-44.9); Hemoglobin 9.5 g/dL (11.5-15.4); Immature Granulocytes % 0.5 % (0-4); Lymphocytes # 1.4 K/mcL (0.6-4.6); Lymphocytes % 14.7 %; Mean Corpuscular HGB Conc 30.7 g/dL (31.6-35.5); Mean Corpuscular Hemoglobin 29.2 pg (28.0-33.3); Mean Corpuscular Volume 95.1 fL (83.0-100.0); Mean Platelet Volume 10.2 fL (9.4-12.4); Monocytes # 0.8 K/mcL (0.0-1.3); Monocytes % 8.1 %; Neutrophils # 7.1 K/mcL (1.6-8.9); Platelet Count 243 K/mcL (140-400); Red Blood Count 3.25 M/mcL (3.82-4.97); Segmented Neutrophils % 73.6 %; White Blood Count 9.6 K/mcL (4.3-11.1)
[2020-05-07 00:54] LABS: INR 1.1; Prothrombin Time 12.8 Seconds (9.4-12.1)
[2020-05-07 01:07] LABS: Albumin 3.6 g/dL (3.5-5.7); Albumin/Globulin Ratio 1.1 (1.1-2.2); Bilirubin,Total 0.3 mg/dL (0.3-1.0); Calcium 8.5 mg/dL (8.6-10.3); Globulin 3.2 g/dL (2.4-3.5); Magnesium 2.1 mg/dL (1.6-2.6); Potassium 5.3 mEq/L (3.5-5.1); Total Protein 6.8 g/dL (6.4-8.9)
[2020-05-07] MEDS ORDERED: Regadenoson 0.4 MG/5 ML SYRINGE IVP ONE (08:33)
[2020-05-07] MEDS ORDERED: lisinopriL 10 MG TABLET PO SCH (09:00)
[2020-05-07] MEDS: Insulin LISPRO 300 UNITS/3 ML VIAL SQ SCH ×3 (10:44→16:09)
[2020-05-07] MEDS: carvediloL 25 MG TABLET PO SCH ×2 (11:18→16:06)
[2020-05-07] MEDS: Aspirin 81 MG TAB.CHEW PO SCH (11:18)
[2020-05-07] MEDS: Morphine Sulfate 2 MG/ML SYRINGE IVP PRN (11:18)
[2020-05-07] MEDS: Isosorbide MONOnitrate (24 HR) 30 MG TAB.ER.24H PO SCH (11:18)
[2020-05-07] MEDS: *HR* Ticagrelor 90 MG TABLET PO SCH ×2 (11:18→20:24)
[2020-05-07] MEDS: Ranolazine 500 MG TAB.ER.12H PO SCH ×2 (11:18→20:24)
[2020-05-07] MEDS: Gabapentin 100 MG CAPSULE PO SCH ×4 (11:21→20:24)
[2020-05-07 12:58] LABS: Bacteria,Urine Few per hpf (None-Few); Bilirubin,Urine Negative (Negative); Blood,Urine Negative (Negative); Clarity,Urine Clear (Clear); Color,Urine Yellow (Yellow); Glucose,Urine (UA) Normal (Normal); Hyaline Casts,Urine Few per lpf (None Seen); Ketones,Urine Negative (Negative); Leukocyte Esterase,Urine Moderate (Negative); Mucus,Urine Few per lpf (None-Few); Nitrite,Urine Negative (Negative); PH,Urine 5.5 pH Units (5.0-8.0); Protein,Urine Negative (Neg-Trace); RBC,Urine 0-3 per hpf (0-3); Specific Gravity,Urine 1.018 (1.010-1.025); Squamous Epithelial Cell,Urine Few per hpf (None-Few); Urobilinogen,Urine Normal (Normal); WBC,Urine 15-30 per hpf (0-3)
[2020-05-07 13:02] LABS: Protein/Creatinine Ratio,Urine 0.15 mg/mg (0.00-0.20); Sodium, Urine 50.4 mEq/L
[2020-05-07] MEDS: SODIUM ZIRCONIUM CYCLOSILICATE 5 GM POWD.PACK PO SCH (16:03)
[2020-05-07] MEDS: 0.9 % Sodium Chloride 1,000 ML IVC SCH (16:03)
[2020-05-08] MEDS: Nitroglycerin 0.4 MG TAB.SUBL SL PRN ×3 (03:54→19:34)
[2020-05-08 04:48] LABS: Hematocrit 30.1 % (35.3-44.9); Hemoglobin 9.3 g/dL (11.5-15.4); Mean Corpuscular HGB Conc 30.9 g/dL (31.6-35.5); Mean Corpuscular Hemoglobin 29.5 pg (28.0-33.3); Mean Corpuscular Volume 95.6 fL (83.0-100.0); Mean Platelet Volume 10.7 fL (9.4-12.4); Platelet Count 240 K/mcL (140-400); Red Blood Count 3.15 M/mcL (3.82-4.97); White Blood Count 9.6 K/mcL (4.3-11.1)
[2020-05-08 04:57] LABS: VBG Ionized Calcium 1.12 mmol/L (1.15-1.35)
[2020-05-08 05:06] LABS: Albumin 3.6 g/dL (3.5-5.7); Calcium 8.7 mg/dL (8.6-10.3); Magnesium 2.1 mg/dL (1.6-2.6); Phosphorous 5.4 mg/dL (2.7-4.5); Potassium 5.4 mEq/L (3.5-5.1)
[2020-05-08] MEDS: 0.9 % Sodium Chloride 1,000 ML IVC SCH ×2 (05:28→17:31)
[2020-05-08 05:30] LABS: Hepatitis B Surface Antigen Nonreactive (Nonreactive)
[2020-05-08 05:58] LABS: Hepatitis B Core IgM Nonreactive (Nonreactive)
[2020-05-08] MEDS: Insulin LISPRO 300 UNITS/3 ML VIAL SQ SCH ×3 (09:33→17:26)
[2020-05-08] MEDS: SODIUM ZIRCONIUM CYCLOSILICATE 5 GM POWD.PACK PO SCH (09:52)
[2020-05-08] MEDS: Isosorbide MONOnitrate (24 HR) 30 MG TAB.ER.24H PO SCH (09:52)
[2020-05-08] MEDS: carvediloL 25 MG TABLET PO SCH ×2 (09:52→16:38)
[2020-05-08] MEDS: Gabapentin 100 MG CAPSULE PO SCH ×4 (09:53→20:46)
[2020-05-08] MEDS: Ranolazine 500 MG TAB.ER.12H PO SCH ×2 (09:53→20:46)
[2020-05-08] MEDS: Aspirin 81 MG TAB.CHEW PO SCH (09:53)
[2020-05-08] MEDS: *HR* Ticagrelor 90 MG TABLET PO SCH ×2 (09:53→20:46)
[2020-05-08] MEDS: *HR* Acetylcysteine 20% 600 MG/3 ML ORAL SYRINGE PO SCH ×2 (13:36→20:46)
[2020-05-09 05:59] LABS: Basophils % 0.2 %; Eosinophils # 0.2 K/mcL (0.0-0.6); Eosinophils % 1.3 %; Hematocrit 30.5 % (35.3-44.9); Hemoglobin 9.5 g/dL (11.5-15.4); Immature Granulocytes % 0.4 % (0-4); Lymphocytes # 0.8 K/mcL (0.6-4.6); Lymphocytes % 6.2 %; Mean Corpuscular HGB Conc 31.1 g/dL (31.6-35.5); Mean Corpuscular Hemoglobin 29.4 pg (28.0-33.3); Mean Corpuscular Volume 94.4 fL (83.0-100.0); Mean Platelet Volume 10.7 fL (9.4-12.4); Monocytes # 0.6 K/mcL (0.0-1.3); Monocytes % 4.7 %; Neutrophils # 11.7 K/mcL (1.6-8.9); Platelet Count 229 K/mcL (140-400); Red Blood Count 3.23 M/mcL (3.82-4.97); Red Cell Distribution Width 14.8 % (11.5-14.5); Segmented Neutrophils % 87.2 %; White Blood Count 13.5 K/mcL (4.3-11.1)
[2020-05-09 06:11] LABS: Calcium 8.8 mg/dL (8.6-10.3)
[2020-05-09] MEDS: Insulin LISPRO 300 UNITS/3 ML VIAL SQ SCH ×3 (08:54→15:45)
[2020-05-09] MEDS: Isosorbide MONOnitrate (24 HR) 30 MG TAB.ER.24H PO SCH (08:55)
[2020-05-09] MEDS: carvediloL 25 MG TABLET PO SCH ×2 (08:55→17:04)
[2020-05-09] MEDS: Gabapentin 100 MG CAPSULE PO SCH ×4 (08:55→21:10)
[2020-05-09] MEDS: *HR* Ticagrelor 90 MG TABLET PO SCH ×2 (08:55→21:10)
[2020-05-09] MEDS: Aspirin 81 MG TAB.CHEW PO SCH (08:55)
[2020-05-09] MEDS: Ranolazine 500 MG TAB.ER.12H PO SCH ×2 (08:55→21:10)
[2020-05-09] MEDS: *HR* Acetylcysteine 20% 600 MG/3 ML ORAL SYRINGE PO SCH ×2 (08:55→21:11)
[2020-05-09] MEDS: SODIUM ZIRCONIUM CYCLOSILICATE 5 GM POWD.PACK PO SCH ×4 (08:56→14:36)
[2020-05-09] MEDS ORDERED: Isosorbide MONOnitrate (24 HR) 30 MG TAB.ER.24H PO ONE (12:00)
[2020-05-09] MEDS ORDERED: 0.9 % Sodium Chloride 1,000 ML IVC SCH (15:30)
[2020-05-09 19:35] LABS: Calcium 8.6 mg/dL (8.6-10.3); Potassium 5.1 mEq/L (3.5-5.1)
[2020-05-10] MEDS: Insulin LISPRO 300 UNITS/3 ML VIAL SQ SCH ×3 (08:26→17:20)
[2020-05-10] MEDS: Aspirin 81 MG TAB.CHEW PO SCH (08:35)
[2020-05-10] MEDS: Ranolazine 500 MG TAB.ER.12H PO SCH ×2 (08:35→20:57)
[2020-05-10] MEDS: carvediloL 25 MG TABLET PO SCH ×2 (08:35→17:21)
[2020-05-10] MEDS: Gabapentin 100 MG CAPSULE PO SCH ×4 (08:36→20:57)
[2020-05-10] MEDS: *HR* Ticagrelor 90 MG TABLET PO SCH ×2 (08:36→20:57)
[2020-05-10] MEDS: SODIUM ZIRCONIUM CYCLOSILICATE 5 GM POWD.PACK PO SCH (08:36)
[2020-05-10] MEDS ORDERED: Isosorbide MONOnitrate (24 HR) 30 MG TAB.ER.24H PO SCH ×2 (09:00)
[2020-05-10] MEDS ORDERED: Isosorbide MONOnitrate (24 HR) 30 MG TAB.ER.24H PO ONE (09:00)
[2020-05-10] MEDS: *HR* Acetylcysteine 20% 600 MG/3 ML ORAL SYRINGE PO SCH ×2 (09:39→20:58)
[2020-05-10 09:47] LABS: Calcium 8.7 mg/dL (8.6-10.3); Potassium 4.6 mEq/L (3.5-5.1)
[2020-05-10] MEDS: Nitroglycerin 0.4 MG TAB.SUBL SL PRN (22:59)
[2020-05-10] MEDS: Morphine Sulfate 2 MG/ML SYRINGE IVP PRN (23:08)
[2020-05-11 03:27] LABS: Basophils % 0.2 %; Eosinophils # 0.2 K/mcL (0.0-0.6); Eosinophils % 2.8 %; Hematocrit 25.3 % (35.3-44.9); Hemoglobin 8.1 g/dL (11.5-15.4); Immature Granulocytes % 0.6 % (0-4); Lymphocytes # 1.1 K/mcL (0.6-4.6); Lymphocytes % 12.1 %; Mean Corpuscular Hemoglobin 28.9 pg (28.0-33.3); Mean Corpuscular Volume 90.4 fL (83.0-100.0); Mean Platelet Volume 10.9 fL (9.4-12.4); Monocytes # 0.6 K/mcL (0.0-1.3); Monocytes % 6.3 %; Neutrophils # 6.8 K/mcL (1.6-8.9); Nucleated Red Blood Cells 0.2 /100 WBC (0); Platelet Count 192 K/mcL (140-400); Red Cell Distribution Width 14.9 % (11.5-14.5); White Blood Count 8.7 K/mcL (4.3-11.1)
[2020-05-11 03:45] LABS: Calcium 8.5 mg/dL (8.6-10.3); Potassium 4.4 mEq/L (3.5-5.1)
[2020-05-11] MEDS: Insulin LISPRO 300 UNITS/3 ML VIAL SQ SCH ×3 (07:52→17:08)
[2020-05-11] MEDS: Gabapentin 100 MG CAPSULE PO SCH ×4 (07:54→20:01)
[2020-05-11] MEDS: *HR* Ticagrelor 90 MG TABLET PO SCH ×2 (07:54→20:01)
[2020-05-11] MEDS: carvediloL 25 MG TABLET PO SCH ×2 (07:54→17:08)
[2020-05-11] MEDS: Ranolazine 500 MG TAB.ER.12H PO SCH ×2 (07:54→20:01)
[2020-05-11] MEDS: Aspirin 81 MG TAB.CHEW PO SCH (07:54)
[2020-05-11] MEDS: SODIUM ZIRCONIUM CYCLOSILICATE 5 GM POWD.PACK PO SCH (07:55)
[2020-05-11] MEDS: *HR* Acetylcysteine 20% 600 MG/3 ML ORAL SYRINGE PO SCH ×2 (08:01→20:01)
[2020-05-11] MEDS ORDERED: Isosorbide MONOnitrate (24 HR) 30 MG TAB.ER.24H PO SCH (09:00)
[2020-05-11 09:01] LABS: Estimated Average Glucose 180 mg/dl
[2020-05-11] MEDS ORDERED: Isosorbide MONOnitrate (24 HR) 30 MG TAB.ER.24H PO ONE (10:45)
[2020-05-11] MEDS: 0.9 % Sodium Chloride 1,000 ML IVC SCH (13:23)
[2020-05-12] MEDS: Insulin LISPRO 300 UNITS/3 ML VIAL SQ SCH ×3 (07:29→16:41)
[2020-05-12] MEDS: SODIUM ZIRCONIUM CYCLOSILICATE 5 GM POWD.PACK PO SCH (07:35)
[2020-05-12] MEDS: Aspirin 81 MG TAB.CHEW PO SCH (07:35)
[2020-05-12] MEDS: carvediloL 25 MG TABLET PO SCH ×2 (07:35→16:42)
[2020-05-12] MEDS: Gabapentin 100 MG CAPSULE PO SCH ×3 (07:35→16:42)
[2020-05-12] MEDS: Ranolazine 500 MG TAB.ER.12H PO SCH (07:35)
[2020-05-12] MEDS: *HR* Ticagrelor 90 MG TABLET PO SCH (07:35)
[2020-05-12] MEDS: *HR* Acetylcysteine 20% 600 MG/3 ML ORAL SYRINGE PO SCH (07:37)
[2020-05-12 07:48] LABS: Basophils # 0.1 K/mcL (0.0-0.2); Basophils % 0.6 %; Eosinophils # 0.3 K/mcL (0.0-0.6); Eosinophils % 3.5 %; Hematocrit 29.1 % (35.3-44.9); Hemoglobin 9.2 g/dL (11.5-15.4); Immature Granulocytes % 0.7 % (0-4); Lymphocytes # 1.2 K/mcL (0.6-4.6); Lymphocytes % 12.6 %; Mean Corpuscular HGB Conc 31.6 g/dL (31.6-35.5); Mean Corpuscular Hemoglobin 28.8 pg (28.0-33.3); Mean Corpuscular Volume 91.2 fL (83.0-100.0); Mean Platelet Volume 10.7 fL (9.4-12.4); Monocytes # 0.6 K/mcL (0.0-1.3); Monocytes % 5.9 %; Neutrophils # 7.3 K/mcL (1.6-8.9); Platelet Count 285 K/mcL (140-400); Red Blood Count 3.19 M/mcL (3.82-4.97); Segmented Neutrophils % 76.7 %; White Blood Count 9.6 K/mcL (4.3-11.1)
[2020-05-12 07:56] LABS: Calcium 9.1 mg/dL (8.6-10.3); Potassium 4.8 mEq/L (3.5-5.1)
[2020-05-12] MEDS ORDERED: Isosorbide MONOnitrate (24 HR) 30 MG TAB.ER.24H PO SCH (09:00)
[2020-05-12] MEDS: 0.9 % Sodium Chloride 1,000 ML IVC SCH (11:42)
[2020-05-12] MEDS ORDERED: *HR* Metformin 500 MG TABLET PO SCH (13:18)
[2020-05-12 15:12] VITALS: BP 123/84
== END 2020-05-12 17:21 | disposition home or self-care (01) | DRG 198 ==
LOC: EMEROOARM 11:11 → 3BNU 11:11 → SUATTDRO 14:43 → 3BNU 16:05 → SUATTDRO 05-09 14:38 → 2ANU 05-09 17:23
PROVIDERS: ADMIT Student in an Organized Health Care Education/Training Program; ATTEND Internal Medicine

== ENCOUNTER 2020-06-09 19:51 | Inpatient (IN) ==
[2020-06-09 20:18] LABS: Basophils % 0.4 %; Eosinophils # 0.2 K/mcL (0.0-0.6); Eosinophils % 2.5 %; Hematocrit 32.7 % (35.3-44.9); Hemoglobin 10.1 g/dL (11.5-15.4); Immature Granulocytes % 0.8 % (0-4); Lymphocytes # 1.5 K/mcL (0.6-4.6); Lymphocytes % 16.6 %; Mean Corpuscular HGB Conc 30.9 g/dL (31.6-35.5); Mean Corpuscular Hemoglobin 28.5 pg (28.0-33.3); Mean Corpuscular Volume 92.1 fL (83.0-100.0); Neutrophils # 6.2 K/mcL (1.6-8.9); Platelet Count 280 K/mcL (140-400); Red Blood Count 3.55 M/mcL (3.82-4.97); Red Cell Distribution Width 14.9 % (11.5-14.5); Segmented Neutrophils % 68.7 %; White Blood Count 9.1 K/mcL (4.3-11.1)
[2020-06-09 20:20] LABS: INR 1.1; Prothrombin Time 12.4 Seconds (9.4-12.1)
[2020-06-09 20:22] LABS: Activated Partial Thrombo Time 31.7 Seconds (26.0-36.0)
[2020-06-09] MEDS ORDERED: *HR* Heparin 5,000 UNIT/ML VIAL ONE (20:26)
[2020-06-09] MEDS ORDERED: 0.9 % Sodium Chloride 1,000 ML ONE ×2 (20:26→20:57)
[2020-06-09] MEDS ORDERED: *HR* Ticagrelor 90 MG TABLET PO ONE (20:29)
[2020-06-09] MEDS ORDERED: *HR* Heparin 5,000 UNIT/ML VIAL IVP ONE ×2 (20:29→20:45)
[2020-06-09] MEDS ORDERED: 0.9 % Sodium Chloride 1,000 ML IVC ONE (20:29)
[2020-06-09] MEDS ORDERED: *HR* Heparin 5,000 UNIT/ML VIAL IVP PRN ×2 (20:29)
[2020-06-09] MEDS: *HR* Ticagrelor 90 MG TABLET ONE (20:29)
[2020-06-09] MEDS ORDERED: Heparin 25,000UNIT/250ML 1/2NS 25,000 UNIT/250 ML IV.SOLN IVC SCH (20:30)
[2020-06-09 20:34] LABS: BUN/Creatinine Ratio 15 (6-26); Blood Urea Nitrogen 27 mg/dL (6-20); Calcium 9.5 mg/dL (8.6-10.3); Carbon Dioxide 20 mEq/L (23-29); Chloride 104 mEq/L (98-107); Glucose 179 mg/dL (70-105); Lipase 62 Units/L (11-82); Osmolality,Calculated 284 (280-300); Potassium 4.2 mEq/L (3.5-5.1); Sodium 132 mEq/L (136-145); Troponin I < 0.03 ng/mL (< 0.04); eGFR For African Americans 34 (> 60); eGFR For Non-African Americans 28 (> 60)
[2020-06-09 20:44] LABS: Heparin anti-factor XA UFH < 0.04 IU/mL (0.30-0.70)
[2020-06-09] MEDS ORDERED: *HR* FentaNYL (PF) 100 MCG/2 ML VIAL ONE (20:57)
[2020-06-09] MEDS ORDERED: *HR* Midazolam HCl 2 MG/2 ML VIAL ONE (20:57)
[2020-06-09] MEDS ORDERED: Heparin 1,000 UNITS/500 mL 500 ML ONE (20:57)
[2020-06-09] MEDS ORDERED: *HR* Heparin 10,000 UNIT/10 ML VIAL ONE (20:58)
[2020-06-09] MEDS ORDERED: ISOVUE-370 200 ML INFUS..BTL ONE (20:58)
[2020-06-09] MEDS ORDERED: Nitroglycerin 1,000 MCG/10 ML VIAL IV ONE (20:58)
[2020-06-09 21:26] LABS: Adenovirus Not Detected (Not Detect); Bordetella Pertussis Not Detected (Not Detect); Chlamydophila pneumoniae Not Detected (Not Detect); Coronavirus 229E Not Detected (Not Detect); Coronavirus HKU1 Not Detected (Not Detect); Coronavirus NL63 Not Detected (Not Detect); Coronavirus OC43 Not Detected (Not Detect); Human Metapneumovirus Not Detected (Not Detect); Human Rhinovirus/Enterovirus Not Detected (Not Detect); Influenza A Subtype 2009 H1 Not Detected (Not Detect); Influenza B Not Detected (Not Detect); Mycoplasma pneumoniae Not Detected (Not Detect); Parainfluenza Virus 1 Not Detected (Not Detect); Parainfluenza Virus 2 Not Detected (Not Detect); Parainfluenza Virus 3 Not Detected (Not Detect); Parainfluenza Virus 4 Not Detected (Not Detect); Respiratory Syncytial Virus Not Detected (Not Detect); SARS-CoV-2 Not Detected (Not Detect)
[2020-06-09] MEDS ORDERED: Naloxone 0.4 MG/ML INJ IVP PRN (23:49)
[2020-06-10 03:41] LABS: Basophils % 0.6 %; Eosinophils # 0.2 K/mcL (0.0-0.6); Eosinophils % 2.9 %; Hematocrit 31.2 % (35.3-44.9); Hemoglobin 9.5 g/dL (11.5-15.4); Immature Granulocytes % 0.6 % (0-4); Lymphocytes # 1.3 K/mcL (0.6-4.6); Lymphocytes % 18.9 %; Mean Corpuscular HGB Conc 30.4 g/dL (31.6-35.5); Mean Platelet Volume 10.3 fL (9.4-12.4); Monocytes # 0.7 K/mcL (0.0-1.3); Monocytes % 9.5 %; Neutrophils # 4.7 K/mcL (1.6-8.9); Platelet Count 230 K/mcL (140-400); Red Blood Count 3.39 M/mcL (3.82-4.97); Red Cell Distribution Width 14.9 % (11.5-14.5); Segmented Neutrophils % 67.5 %; White Blood Count 6.9 K/mcL (4.3-11.1)
[2020-06-10 03:48] LABS: INR 1.2; Prothrombin Time 13.2 Seconds (9.4-12.1)
[2020-06-10 04:03] LABS: Alanine Aminotransferase 10 Units/L (7-52); Albumin 3.4 g/dL (3.5-5.7); Albumin/Globulin Ratio 1.2 (1.1-2.2); Alkaline Phosphatase 53 Units/L (34-104); Aspartate Amino Transferase 9 Units/L (13-39); BUN/Creatinine Ratio 13 (6-26); Bilirubin,Total 0.3 mg/dL (0.3-1.0); Blood Urea Nitrogen 25 mg/dL (6-20); Calcium 8.7 mg/dL (8.6-10.3); Carbon Dioxide 19 mEq/L (23-29); Chloride 106 mEq/L (98-107); Chol/HDL Ratio 4.5 (0-4.9); Cholesterol 191 mg/dL (< 200); Globulin 2.9 g/dL (2.4-3.5); Glucose 190 mg/dL (70-105); HDL Cholesterol 42 mg/dL (40-59); LDL Cholesterol,Calculated 104 mg/dL (< 100); Osmolality,Calculated 289 (280-300); Potassium 3.9 mEq/L (3.5-5.1); Sodium 135 mEq/L (136-145); Total Protein 6.3 g/dL (6.4-8.9); Triglycerides 226 mg/dL (< 150); Troponin I < 0.03 ng/mL (< 0.04); eGFR For African Americans 34 (> 60); eGFR For Non-African Americans 28 (> 60)
[2020-06-10] MEDS ORDERED: D5% in Water 1,000 ML IVC PRN (04:42)
[2020-06-10] MEDS ORDERED: *HR* Dextrose 50 % in Water (Vial) 50 ML VIAL IVP PRN (04:42)
[2020-06-10] MEDS ORDERED: Dextrose Gel 15 GM/37.5 ML TUBE PO PRN ×2 (04:42)
[2020-06-10 09:11] LABS: Estimated Average Glucose 171 mg/dl; Hemoglobin A1C 7.6 %
[2020-06-10] MEDS: *HR* Heparin 5,000 UNIT/ML VIAL SQ SCH ×2 (09:29→17:19)
[2020-06-10] MEDS: Ranolazine 500 MG TAB.ER.12H PO SCH ×2 (09:36→20:41)
[2020-06-10] MEDS: Aspirin 81 MG TAB.CHEW PO SCH (09:36)
[2020-06-10] MEDS: Isosorbide MONOnitrate (24 HR) 30 MG TAB.ER.24H PO SCH (09:36)
[2020-06-10] MEDS: Gabapentin 100 MG CAPSULE PO SCH ×4 (09:37→20:41)
[2020-06-10] MEDS: 0.9 % Sodium Chloride 1,000 ML IVC SCH ×2 (09:37→19:31)
[2020-06-10] MEDS: carvediloL 25 MG TABLET PO SCH ×2 (09:37→17:19)
[2020-06-10] MEDS: *HR* Ticagrelor 90 MG TABLET PO SCH ×2 (09:37→20:41)
[2020-06-10] MEDS: Insulin LISPRO 300 UNITS/3 ML VIAL SQ SCH ×4 (09:43→20:32)
[2020-06-10] MEDS ORDERED: Isovue-370 500 ML BOTTLE IVP ONE (11:26)
[2020-06-11] MEDS ORDERED: Morphine Sulfate 2 MG/ML SYRINGE IVP ONE (01:15)
[2020-06-11 01:18] LABS: Hematocrit 32.3 % (35.3-44.9); Hemoglobin 9.6 g/dL (11.5-15.4); Mean Corpuscular HGB Conc 29.7 g/dL (31.6-35.5); Mean Corpuscular Hemoglobin 28.1 pg (28.0-33.3); Mean Corpuscular Volume 94.4 fL (83.0-100.0); Mean Platelet Volume 10.1 fL (9.4-12.4); Platelet Count 277 K/mcL (140-400); Red Blood Count 3.42 M/mcL (3.82-4.97); Red Cell Distribution Width 15.1 % (11.5-14.5); White Blood Count 7.5 K/mcL (4.3-11.1)
[2020-06-11 01:37] LABS: Calcium 8.7 mg/dL (8.6-10.3); Potassium 4.3 mEq/L (3.5-5.1)
[2020-06-11] MEDS: 0.9 % Sodium Chloride 1,000 ML IVC SCH (02:20)
[2020-06-11] MEDS: *HR* Heparin 5,000 UNIT/ML VIAL SQ SCH ×2 (05:46→16:56)
[2020-06-11] MEDS: Insulin LISPRO 300 UNITS/3 ML VIAL SQ SCH ×4 (07:44→20:47)
[2020-06-11] MEDS: Aspirin 81 MG TAB.CHEW PO SCH (07:44)
[2020-06-11] MEDS: Ranolazine 500 MG TAB.ER.12H PO SCH ×2 (07:45→20:48)
[2020-06-11] MEDS: Gabapentin 100 MG CAPSULE PO SCH ×4 (07:45→20:48)
[2020-06-11] MEDS: Isosorbide MONOnitrate (24 HR) 30 MG TAB.ER.24H PO SCH (07:45)
[2020-06-11] MEDS: *HR* Ticagrelor 90 MG TABLET PO SCH ×2 (07:45→20:48)
[2020-06-11] MEDS: carvediloL 25 MG TABLET PO SCH ×2 (07:45→16:56)
[2020-06-12] MEDS: *HR* Heparin 5,000 UNIT/ML VIAL SQ SCH ×2 (05:19→17:24)
[2020-06-12 06:52] LABS: Hematocrit 31.3 % (35.3-44.9); Hemoglobin 9.5 g/dL (11.5-15.4); Mean Corpuscular HGB Conc 30.4 g/dL (31.6-35.5); Mean Corpuscular Hemoglobin 28.2 pg (28.0-33.3); Mean Corpuscular Volume 92.9 fL (83.0-100.0); Platelet Count 248 K/mcL (140-400); Red Blood Count 3.37 M/mcL (3.82-4.97); White Blood Count 8.1 K/mcL (4.3-11.1)
[2020-06-12 07:13] LABS: Calcium 8.5 mg/dL (8.6-10.3); Potassium 4.6 mEq/L (3.5-5.1)
[2020-06-12] MEDS: Insulin LISPRO 300 UNITS/3 ML VIAL SQ SCH ×4 (07:53→20:29)
[2020-06-12] MEDS: *HR* Ticagrelor 90 MG TABLET PO SCH ×2 (08:27→20:37)
[2020-06-12] MEDS: Ranolazine 500 MG TAB.ER.12H PO SCH ×2 (08:27→20:36)
[2020-06-12] MEDS: tiZANidine 4 MG TABLET PO PRN ×2 (08:27→20:37)
[2020-06-12] MEDS: Isosorbide MONOnitrate (24 HR) 30 MG TAB.ER.24H PO SCH (08:27)
[2020-06-12] MEDS: Gabapentin 100 MG CAPSULE PO SCH ×4 (08:27→20:37)
[2020-06-12] MEDS: Aspirin 81 MG TAB.CHEW PO SCH (08:28)
[2020-06-12] MEDS: carvediloL 25 MG TABLET PO SCH ×2 (08:28→17:24)
[2020-06-13] MEDS: *HR* Heparin 5,000 UNIT/ML VIAL SQ SCH ×2 (05:33→17:04)
[2020-06-13] MEDS: Insulin LISPRO 300 UNITS/3 ML VIAL SQ SCH ×4 (07:46→21:38)
[2020-06-13] MEDS: Aspirin 81 MG TAB.CHEW PO SCH (08:12)
[2020-06-13] MEDS: Gabapentin 100 MG CAPSULE PO SCH ×4 (08:12→22:31)
[2020-06-13] MEDS: carvediloL 25 MG TABLET PO SCH ×2 (08:12→17:03)
[2020-06-13] MEDS: Ranolazine 500 MG TAB.ER.12H PO SCH ×2 (08:12→22:31)
[2020-06-13] MEDS: Isosorbide MONOnitrate (24 HR) 30 MG TAB.ER.24H PO SCH (08:13)
[2020-06-13] MEDS: *HR* Ticagrelor 90 MG TABLET PO SCH ×2 (08:13→22:31)
[2020-06-13] MEDS: tiZANidine 4 MG TABLET PO PRN ×2 (22:46→22:57)
[2020-06-14] MEDS: *HR* Heparin 5,000 UNIT/ML VIAL SQ SCH ×2 (06:09→17:34)
[2020-06-14] MEDS: Acetaminophen 325 MG TABLET PO PRN (06:11)
[2020-06-14] MEDS: Insulin LISPRO 300 UNITS/3 ML VIAL SQ SCH ×4 (08:50→21:17)
[2020-06-14] MEDS: carvediloL 25 MG TABLET PO SCH ×2 (08:50→17:34)
[2020-06-14] MEDS: *HR* Ticagrelor 90 MG TABLET PO SCH ×2 (08:51→21:00)
[2020-06-14] MEDS: Ranolazine 500 MG TAB.ER.12H PO SCH ×2 (08:51→21:00)
[2020-06-14] MEDS: Aspirin 81 MG TAB.CHEW PO SCH (08:51)
[2020-06-14] MEDS: Gabapentin 100 MG CAPSULE PO SCH ×4 (08:51→21:00)
[2020-06-14] MEDS: Isosorbide MONOnitrate (24 HR) 30 MG TAB.ER.24H PO SCH (08:51)
[2020-06-14 10:31] LABS: Basophils # 0.1 K/mcL (0.0-0.2); Basophils % 0.6 %; Eosinophils # 0.3 K/mcL (0.0-0.6); Eosinophils % 3.8 %; Hematocrit 31.1 % (35.3-44.9); Hemoglobin 9.6 g/dL (11.5-15.4); Immature Granulocytes % 0.7 % (0-4); Lymphocytes # 1.3 K/mcL (0.6-4.6); Lymphocytes % 15.2 %; Mean Corpuscular HGB Conc 30.9 g/dL (31.6-35.5); Mean Corpuscular Hemoglobin 28.1 pg (28.0-33.3); Mean Corpuscular Volume 90.9 fL (83.0-100.0); Mean Platelet Volume 10.1 fL (9.4-12.4); Monocytes # 0.6 K/mcL (0.0-1.3); Monocytes % 6.9 %; Neutrophils # 6.3 K/mcL (1.6-8.9); Platelet Count 262 K/mcL (140-400); Red Blood Count 3.42 M/mcL (3.82-4.97); Red Cell Distribution Width 15.1 % (11.5-14.5); Segmented Neutrophils % 72.8 %; White Blood Count 8.6 K/mcL (4.3-11.1)
[2020-06-14] MEDS: tiZANidine 4 MG TABLET PO PRN (10:38)
[2020-06-14 10:51] LABS: Alanine Aminotransferase 14 Units/L (7-52); Albumin 3.6 g/dL (3.5-5.7); Albumin/Globulin Ratio 1.1 (1.1-2.2); Alkaline Phosphatase 60 Units/L (34-104); Aspartate Amino Transferase 11 Units/L (13-39); BUN/Creatinine Ratio 17 (6-26); Bilirubin,Total 0.4 mg/dL (0.3-1.0); Blood Urea Nitrogen 34 mg/dL (6-20); Calcium 9.1 mg/dL (8.6-10.3); Carbon Dioxide 24 mEq/L (23-29); Chloride 102 mEq/L (98-107); Globulin 3.2 g/dL (2.4-3.5); Glucose 153 mg/dL (70-105); Osmolality,Calculated 287 (280-300); Potassium 4.9 mEq/L (3.5-5.1); Sodium 133 mEq/L (136-145); Total Protein 6.8 g/dL (6.4-8.9); Troponin I < 0.03 ng/mL (< 0.04); eGFR For African Americans 31 (> 60); eGFR For Non-African Americans 26 (> 60)
[2020-06-14] MEDS ORDERED: 0.9 % Sodium Chloride 1,000 ML IVC SCH (11:15)
[2020-06-14] MEDS ORDERED: Isovue-370 500 ML BOTTLE IVP ONE (12:51)
[2020-06-14] MEDS ORDERED: *HR* HYDROcodone/Acet 5/325 mg TABLET PO PRN (13:07)
[2020-06-14] MEDS ORDERED: Morphine Sulfate 2 MG/ML SYRINGE IVP ONE (21:58)
[2020-06-15] MEDS: *HR* Heparin 5,000 UNIT/ML VIAL SQ SCH ×2 (05:43→17:53)
[2020-06-15 06:05] LABS: BUN/Creatinine Ratio 23 (6-26); Blood Urea Nitrogen 40 mg/dL (6-20); Calcium 8.9 mg/dL (8.6-10.3); Carbon Dioxide 24 mEq/L (23-29); Chloride 102 mEq/L (98-107); Glucose 119 mg/dL (70-105); Osmolality,Calculated 289 (280-300); Sodium 134 mEq/L (136-145); Troponin I < 0.03 ng/mL (< 0.04); eGFR For African Americans 36 (> 60); eGFR For Non-African Americans 29 (> 60)
[2020-06-15] MEDS: Insulin LISPRO 300 UNITS/3 ML VIAL SQ SCH ×4 (07:52→20:42)
[2020-06-15] MEDS: Isosorbide MONOnitrate (24 HR) 30 MG TAB.ER.24H PO SCH (09:06)
[2020-06-15] MEDS: carvediloL 25 MG TABLET PO SCH ×2 (09:07→17:53)
[2020-06-15] MEDS: Ranolazine 500 MG TAB.ER.12H PO SCH ×2 (09:07→20:42)
[2020-06-15] MEDS: *HR* Ticagrelor 90 MG TABLET PO SCH ×2 (09:07→20:42)
[2020-06-15] MEDS: Gabapentin 100 MG CAPSULE PO SCH ×4 (09:07→20:42)
[2020-06-15] MEDS: Aspirin 81 MG TAB.CHEW PO SCH (09:08)
[2020-06-15] MEDS: NIFEdipine XL (24 HR) 30 MG TAB.ER.24 PO SCH (10:54)
[2020-06-16] MEDS: Acetaminophen 325 MG TABLET PO PRN (02:40)
[2020-06-16] MEDS: *HR* Heparin 5,000 UNIT/ML VIAL SQ SCH (05:42)
[2020-06-16 06:00] LABS: Calcium 8.8 mg/dL (8.6-10.3); Magnesium 1.9 mg/dL (1.6-2.6); Potassium 4.4 mEq/L (3.5-5.1)
[2020-06-16] MEDS: Insulin LISPRO 300 UNITS/3 ML VIAL SQ SCH ×2 (08:31→12:27)
[2020-06-16] MEDS: NIFEdipine XL (24 HR) 30 MG TAB.ER.24 PO SCH (09:03)
[2020-06-16] MEDS: carvediloL 25 MG TABLET PO SCH (09:03)
[2020-06-16] MEDS: Aspirin 81 MG TAB.CHEW PO SCH (09:03)
[2020-06-16] MEDS: Ranolazine 500 MG TAB.ER.12H PO SCH (09:03)
[2020-06-16] MEDS: Gabapentin 100 MG CAPSULE PO SCH (09:03)
[2020-06-16] MEDS: Isosorbide MONOnitrate (24 HR) 30 MG TAB.ER.24H PO SCH (09:04)
[2020-06-16] MEDS: *HR* Ticagrelor 90 MG TABLET PO SCH (09:04)
[2020-06-16 12:23] VITALS: BP 105/63
== END 2020-06-16 14:20 | disposition home health service (06) | DRG 191 ==
LOC: 2ANU 19:51 → EMEROOARM 19:51 → 2ANU 21:13 → SUATTDRO 21:34 → 2ANU 21:45
PROVIDERS: ADMIT Family Medicine; ATTEND Internal Medicine

== ENCOUNTER 2020-08-10 18:32 | Observation (INO) ==
[2020-08-10] MEDS ORDERED: Nitroglycerin 0.4 MG TAB.SUBL SL PRN ×2 (18:43→22:25)
[2020-08-10 18:59] LABS: Basophils % 0.4 %; Eosinophils # 0.2 K/mcL (0.0-0.6); Eosinophils % 2.5 %; Hemoglobin 10.5 g/dL (11.5-15.4); Immature Granulocytes % 0.5 % (0-4); Lymphocytes # 1.1 K/mcL (0.6-4.6); Mean Corpuscular HGB Conc 30.9 g/dL (31.6-35.5); Mean Corpuscular Hemoglobin 27.7 pg (28.0-33.3); Mean Corpuscular Volume 89.7 fL (83.0-100.0); Mean Platelet Volume 9.7 fL (9.4-12.4); Monocytes # 0.5 K/mcL (0.0-1.3); Monocytes % 7.2 %; Neutrophils # 5.6 K/mcL (1.6-8.9); Platelet Count 282 K/mcL (140-400); Red Blood Count 3.79 M/mcL (3.82-4.97); Red Cell Distribution Width 16.4 % (11.5-14.5); Segmented Neutrophils % 74.4 %; White Blood Count 7.5 K/mcL (4.3-11.1)
[2020-08-10 19:07] LABS: INR 1.2; Prothrombin Time 13.4 Seconds (9.4-12.1)
[2020-08-10 19:10] LABS: Activated Partial Thrombo Time 28.1 Seconds (26.0-36.0)
[2020-08-10 19:17] LABS: Bacteria,Urine Few per hpf (None-Few); Bilirubin,Urine Negative (Negative); Blood,Urine Negative (Negative); Clarity,Urine Clear (Clear); Color,Urine Light-Yellow (Yellow); Glucose,Urine (UA) >=1000 mg/dL (Normal); Ketones,Urine Negative (Negative); Leukocyte Esterase,Urine Negative (Negative); Mucus,Urine Few per lpf (None-Few); Nitrite,Urine Negative (Negative); Protein,Urine Negative (Neg-Trace); RBC,Urine 0-3 per hpf (0-3); Specific Gravity,Urine 1.022 (1.010-1.025); Squamous Epithelial Cell,Urine Few per hpf (None-Few); Urobilinogen,Urine Normal (Normal)
[2020-08-10 19:21] LABS: Alanine Aminotransferase 18 Units/L (7-52); Albumin 3.9 g/dL (3.5-5.7); Albumin/Globulin Ratio 1.1 (1.1-2.2); Alkaline Phosphatase 69 Units/L (34-104); Aspartate Amino Transferase 13 Units/L (13-39); BUN/Creatinine Ratio 20 (6-26); Bilirubin,Total 0.3 mg/dL (0.3-1.0); Blood Urea Nitrogen 34 mg/dL (8-23); Calcium 9.2 mg/dL (8.6-10.3); Carbon Dioxide 23 mEq/L (23-29); Chloride 102 mEq/L (98-107); Globulin 3.6 g/dL (2.4-3.5); Glucose 188 mg/dL (70-105); Osmolality,Calculated 293 (280-300); Sodium 135 mEq/L (136-145); Total Protein 7.5 g/dL (6.4-8.9); Troponin I < 0.03 ng/mL (< 0.04); eGFR For African Americans 36 (> 60); eGFR For Non-African Americans 30 (> 60)
[2020-08-10] MEDS ORDERED: *HR* OxyCODONE/APAP 5/325 TABLET PO ONE (20:32)
[2020-08-10] MEDS ORDERED: Acetaminophen 325 MG TABLET PO PRN (22:21)
[2020-08-10] MEDS ORDERED: Ondansetron 4 MG/2 ML VIAL IVP PRN (22:21)
[2020-08-10] MEDS: carvediloL 25 MG TABLET PO SCH (23:43)
[2020-08-10] MEDS: *HR* Ticagrelor 90 MG TABLET PO SCH (23:43)
[2020-08-11 05:19] LABS: Hemoglobin 10.6 g/dL (11.5-15.4); Mean Corpuscular HGB Conc 30.3 g/dL (31.6-35.5); Mean Corpuscular Hemoglobin 27.5 pg (28.0-33.3); Mean Corpuscular Volume 90.7 fL (83.0-100.0); Mean Platelet Volume 9.8 fL (9.4-12.4); Platelet Count 294 K/mcL (140-400); Red Blood Count 3.86 M/mcL (3.82-4.97); Red Cell Distribution Width 16.5 % (11.5-14.5); White Blood Count 8.3 K/mcL (4.3-11.1)
[2020-08-11 05:42] LABS: BUN/Creatinine Ratio 19 (6-26); Blood Urea Nitrogen 34 mg/dL (8-23); Calcium 9.1 mg/dL (8.6-10.3); Carbon Dioxide 23 mEq/L (23-29); Chloride 103 mEq/L (98-107); Chol/HDL Ratio 3.5 (0-4.9); Cholesterol 211 mg/dL (< 200); Glucose 147 mg/dL (70-105); HDL Cholesterol 61 mg/dL (40-59); LDL Cholesterol,Calculated 120 mg/dL (< 100); Magnesium 2.2 mg/dL (1.6-2.6); Osmolality,Calculated 290 (280-300); Sodium 135 mEq/L (136-145); Triglycerides 148 mg/dL (< 150); eGFR For African Americans 35 (> 60); eGFR For Non-African Americans 29 (> 60)
[2020-08-11 05:50] LABS: Troponin I < 0.03 ng/mL (< 0.04)
[2020-08-11 05:54] LABS: INR 1.2; Prothrombin Time 13.3 Seconds (9.4-12.1)
[2020-08-11] MEDS ORDERED: *HR* Heparin 5,000 UNIT/ML VIAL SQ SCH (06:00)
[2020-08-11] MEDS ORDERED: NIFEdipine XL (24 HR) 30 MG TAB.ER.24 PO SCH (09:00)
[2020-08-11] MEDS ORDERED: Ranolazine 500 MG TAB.ER.12H PO SCH (09:00)
[2020-08-11] MEDS ORDERED: Isosorbide MONOnitrate (24 HR) 60 MG TAB.ER.24H PO SCH (09:00)
[2020-08-11] MEDS ORDERED: Gabapentin 100 MG CAPSULE PO SCH (09:00)
[2020-08-11] MEDS ORDERED: Aspirin 81 MG TAB.CHEW PO SCH (09:00)
[2020-08-11] MEDS ORDERED: tiZANidine 4 MG TABLET PO SCH (09:00)
[2020-08-11 10:06] VITALS: BP 143/78
[2020-08-11] MEDS: *HR* Ticagrelor 90 MG TABLET PO SCH (12:30)
[2020-08-11] MEDS: carvediloL 25 MG TABLET PO SCH (12:32)
[2020-08-11] MEDS ORDERED: Isosorbide MONOnitrate (24 HR) 60 MG TAB.ER.24H PO ONE (12:58)
[2020-08-12] MEDS ORDERED: Isosorbide MONOnitrate (24 HR) 60 MG TAB.ER.24H PO SCH (09:00)
[2020-08-12] MEDS ORDERED: Isosorbide MONOnitrate (24 HR) 60 MG TAB.ER.24H PO ONE (12:58)
== END 2020-08-11 16:13 | disposition home or self-care (01) ==
LOC: 3BNU 18:32 → EMEROOARM 18:32 → SUATTDRO 21:46 → 3BNU 22:23
PROVIDERS: ADMIT Internal Medicine; ATTEND Internal Medicine

== ENCOUNTER 2020-09-02 15:13 | Observation (INO) ==
[2020-09-02] MEDS ORDERED: Aspirin 81 MG TAB.CHEW PO ONE (15:18)
[2020-09-02 15:40] LABS: Basophils % 0.4 %; Eosinophils # 0.2 K/mcL (0.0-0.6); Eosinophils % 3.4 %; Hematocrit 34.3 % (35.3-44.9); Hemoglobin 10.3 g/dL (11.5-15.4); Immature Granulocytes % 0.3 % (0-4); Lymphocytes # 1.4 K/mcL (0.6-4.6); Lymphocytes % 19.8 %; Mean Corpuscular Hemoglobin 26.5 pg (28.0-33.3); Mean Corpuscular Volume 88.2 fL (83.0-100.0); Mean Platelet Volume 9.9 fL (9.4-12.4); Monocytes # 0.6 K/mcL (0.0-1.3); Monocytes % 8.5 %; Neutrophils # 4.8 K/mcL (1.6-8.9); Platelet Count 245 K/mcL (140-400); Red Blood Count 3.89 M/mcL (3.82-4.97); Red Cell Distribution Width 16.7 % (11.5-14.5); Segmented Neutrophils % 67.6 %; White Blood Count 7.2 K/mcL (4.3-11.1)
[2020-09-02 15:52] LABS: INR 1.2; Prothrombin Time 13.6 Seconds (9.4-12.1)
[2020-09-02 15:55] LABS: Activated Partial Thrombo Time 29.1 Seconds (26.0-36.0)
[2020-09-02 15:57] LABS: BUN/Creatinine Ratio 17 (6-26); Blood Urea Nitrogen 32 mg/dL (8-23); Calcium 8.9 mg/dL (8.6-10.3); Carbon Dioxide 24 mEq/L (23-29); Chloride 103 mEq/L (98-107); Glucose 142 mg/dL (70-105); Osmolality,Calculated 289 (280-300); Sodium 135 mEq/L (136-145); eGFR For African Americans 33 (> 60); eGFR For Non-African Americans 28 (> 60)
[2020-09-02 15:58] LABS: Troponin I < 0.03 ng/mL (< 0.04)
[2020-09-02] MEDS ORDERED: *HR* FentaNYL (PF) 100 MCG/2 ML VIAL IVP ONE (16:05)
[2020-09-02] MEDS ORDERED: Naloxone 0.4 MG/ML INJ IVP PRN (17:16)
[2020-09-02] MEDS ORDERED: Perflutren Lipid Microsphere 1.3 ML in 0.9 % Sodium Chloride 8.7 ML IVP PRN (17:50)
[2020-09-02] MEDS ORDERED: GI Cocktail 40 ML EACH PO ONE (17:51)
[2020-09-02] MEDS: Gabapentin 100 MG CAPSULE PO SCH (20:46)
[2020-09-02] MEDS: *HR* HYDROcodone/Acet 5/325 mg TABLET PO PRN (20:46)
[2020-09-02] MEDS: *HR* Ticagrelor 90 MG TABLET PO SCH (20:47)
[2020-09-02] MEDS: Ranolazine 500 MG TAB.ER.12H PO SCH (20:47)
[2020-09-02] MEDS: tiZANidine 4 MG TABLET PO SCH (20:48)
[2020-09-03 00:58] LABS: Bacteria,Urine Few per hpf (None-Few); Bilirubin,Urine Negative (Negative); Blood,Urine Negative (Negative); Budding Yeast,Urine Few per hpf (None Seen); Clarity,Urine Clear (Clear); Color,Urine Light-Yellow (Yellow); Glucose,Urine (UA) >=1000 mg/dL (Normal); Ketones,Urine Negative (Negative); Leukocyte Esterase,Urine Negative (Negative); Mucus,Urine Few per lpf (None-Few); Nitrite,Urine Negative (Negative); PH,Urine 5.5 pH Units (5.0-8.0); Protein,Urine Negative (Neg-Trace); RBC,Urine 0-3 per hpf (0-3); Specific Gravity,Urine 1.021 (1.010-1.025); Squamous Epithelial Cell,Urine Few per hpf (None-Few); Urobilinogen,Urine Normal (Normal)
[2020-09-03] MEDS: Nitroglycerin 0.4 MG TAB.SUBL SL PRN (03:51)
[2020-09-03 03:56] LABS: Basophils % 0.5 %; Eosinophils # 0.2 K/mcL (0.0-0.6); Eosinophils % 3.4 %; Hematocrit 34.3 % (35.3-44.9); Hemoglobin 10.5 g/dL (11.5-15.4); Immature Granulocytes % 0.3 % (0-4); Lymphocytes # 1.4 K/mcL (0.6-4.6); Lymphocytes % 23.7 %; Mean Corpuscular HGB Conc 30.6 g/dL (31.6-35.5); Mean Corpuscular Volume 88.2 fL (83.0-100.0); Monocytes # 0.6 K/mcL (0.0-1.3); Monocytes % 10.1 %; Neutrophils # 3.6 K/mcL (1.6-8.9); Platelet Count 246 K/mcL (140-400); Red Blood Count 3.89 M/mcL (3.82-4.97); Red Cell Distribution Width 16.7 % (11.5-14.5); White Blood Count 5.8 K/mcL (4.3-11.1)
[2020-09-03 04:08] LABS: Calcium 8.8 mg/dL (8.6-10.3); Potassium 4.2 mEq/L (3.5-5.1)
[2020-09-03] MEDS: *HR* HYDROcodone/Acet 5/325 mg TABLET PO PRN ×3 (04:18→23:39)
[2020-09-03] MEDS: Gabapentin 100 MG CAPSULE PO SCH ×2 (07:56→21:11)
[2020-09-03] MEDS: tiZANidine 4 MG TABLET PO SCH ×2 (07:56→21:11)
[2020-09-03] MEDS: *HR* Ticagrelor 90 MG TABLET PO SCH ×2 (07:56→21:11)
[2020-09-03] MEDS: carvediloL 25 MG TABLET PO SCH ×2 (07:57→17:26)
[2020-09-03] MEDS: Aspirin 81 MG TAB.CHEW PO SCH (07:57)
[2020-09-03] MEDS: Ranolazine 500 MG TAB.ER.12H PO SCH ×2 (07:57→21:11)
[2020-09-03] MEDS: Isosorbide MONOnitrate (24 HR) 60 MG TAB.ER.24H PO SCH (07:57)
[2020-09-03] MEDS ORDERED: *HR* Dextrose 50 % in Water (Vial) 50 ML VIAL IVP PRN (14:59)
[2020-09-03] MEDS ORDERED: Dextrose Gel 15 GM/37.5 ML TUBE PO PRN ×2 (14:59)
[2020-09-03] MEDS ORDERED: D5% in Water 1,000 ML IVC PRN (14:59)
[2020-09-03] MEDS: Insulin LISPRO 300 UNITS/3 ML VIAL SQ SCH (17:26)
[2020-09-04] MEDS: Nitroglycerin 0.4 MG TAB.SUBL SL PRN ×2 (04:42→04:51)
[2020-09-04] MEDS: *HR* HYDROcodone/Acet 5/325 mg TABLET PO PRN ×2 (05:42→15:47)
[2020-09-04] MEDS: Insulin LISPRO 300 UNITS/3 ML VIAL SQ SCH ×2 (07:10→13:13)
[2020-09-04 07:14] LABS: Hematocrit 34.2 % (35.3-44.9); Hemoglobin 10.4 g/dL (11.5-15.4); Mean Corpuscular HGB Conc 30.4 g/dL (31.6-35.5); Mean Corpuscular Hemoglobin 26.5 pg (28.0-33.3); Mean Corpuscular Volume 87.2 fL (83.0-100.0); Mean Platelet Volume 10.3 fL (9.4-12.4); Platelet Count 269 K/mcL (140-400); Red Blood Count 3.92 M/mcL (3.82-4.97); Red Cell Distribution Width 17.1 % (11.5-14.5); White Blood Count 7.8 K/mcL (4.3-11.1)
[2020-09-04 07:33] LABS: BUN/Creatinine Ratio 14 (6-26); Blood Urea Nitrogen 31 mg/dL (8-23); Calcium 9.3 mg/dL (8.6-10.3); Carbon Dioxide 23 mEq/L (23-29); Chloride 103 mEq/L (98-107); Glucose 136 mg/dL (70-105); Osmolality,Calculated 289 (280-300); Potassium 4.2 mEq/L (3.5-5.1); Sodium 135 mEq/L (136-145); Troponin I < 0.03 ng/mL (< 0.04); eGFR For African Americans 28 (> 60); eGFR For Non-African Americans 23 (> 60)
[2020-09-04] MEDS: Isosorbide MONOnitrate (24 HR) 60 MG TAB.ER.24H PO SCH (08:08)
[2020-09-04] MEDS: tiZANidine 4 MG TABLET PO SCH (08:08)
[2020-09-04] MEDS: Aspirin 81 MG TAB.CHEW PO SCH (08:08)
[2020-09-04] MEDS: *HR* Ticagrelor 90 MG TABLET PO SCH (08:09)
[2020-09-04] MEDS: carvediloL 25 MG TABLET PO SCH ×2 (08:09→15:47)
[2020-09-04] MEDS: Ranolazine 500 MG TAB.ER.12H PO SCH (08:09)
[2020-09-04] MEDS: Gabapentin 100 MG CAPSULE PO SCH (08:09)
[2020-09-04] MEDS ORDERED: 0.9 % Sodium Chloride 1,000 ML IVC SCH (08:45)
[2020-09-04 15:01] LABS: Calcium 8.8 mg/dL (8.6-10.3); Potassium 4.1 mEq/L (3.5-5.1)
[2020-09-04 15:47] VITALS: BP 127/69
== END 2020-09-04 17:36 | disposition home or self-care (01) ==
LOC: EMEROOARM 15:13 → 3BNU 15:13
PROVIDERS: ADMIT Internal Medicine; ATTEND Internal Medicine

== ENCOUNTER 2020-09-18 18:07 | Observation (INO) ==
[2020-09-18] MEDS: Nitroglycerin 0.4 MG TAB.SUBL SL PRN ×3 (18:45→19:01)
[2020-09-18 18:47] LABS: Basophils % 0.4 %; Eosinophils # 0.2 K/mcL (0.0-0.6); Eosinophils % 2.2 %; Hematocrit 34.4 % (35.3-44.9); Hemoglobin 10.5 g/dL (11.5-15.4); Immature Granulocytes % 0.3 % (0-4); Lymphocytes # 1.8 K/mcL (0.6-4.6); Lymphocytes % 19.4 %; Mean Corpuscular HGB Conc 30.5 g/dL (31.6-35.5); Mean Corpuscular Hemoglobin 26.4 pg (28.0-33.3); Mean Corpuscular Volume 86.6 fL (83.0-100.0); Mean Platelet Volume 9.7 fL (9.4-12.4); Monocytes # 0.7 K/mcL (0.0-1.3); Monocytes % 7.8 %; Neutrophils # 6.4 K/mcL (1.6-8.9); Platelet Count 262 K/mcL (140-400); Red Blood Count 3.97 M/mcL (3.82-4.97); Red Cell Distribution Width 17.7 % (11.5-14.5); Segmented Neutrophils % 69.9 %; White Blood Count 9.1 K/mcL (4.3-11.1)
[2020-09-18 18:55] LABS: INR 1.2; Prothrombin Time 13.6 Seconds (9.4-12.1)
[2020-09-18 18:57] LABS: Activated Partial Thrombo Time 25.8 Seconds (26.0-36.0)
[2020-09-18 19:13] LABS: BUN/Creatinine Ratio 20 (6-26); Blood Urea Nitrogen 35 mg/dL (8-23); Calcium 8.7 mg/dL (8.6-10.3); Carbon Dioxide 20 mEq/L (23-29); Chloride 103 mEq/L (98-107); Glucose 107 mg/dL (70-105); Osmolality,Calculated 282 (280-300); Potassium 4.2 mEq/L (3.5-5.1); Sodium 132 mEq/L (136-145); Troponin I < 0.03 ng/mL (< 0.04); eGFR For African Americans 36 (> 60); eGFR For Non-African Americans 30 (> 60)
[2020-09-18] MEDS ORDERED: Morphine Sulfate 2 MG/ML SYRINGE IVP ONE (19:27)
[2020-09-18] MEDS ORDERED: *HR* Heparin 5,000 UNIT/ML VIAL IVP ONE (20:23)
[2020-09-18] MEDS ORDERED: *HR* Heparin 5,000 UNIT/ML VIAL IVP PRN ×2 (20:23)
[2020-09-18] MEDS ORDERED: Heparin 25,000UNIT/250ML 1/2NS 25,000 UNIT/250 ML IV.SOLN IVC SCH (20:30)
[2020-09-18 20:42] LABS: Hematocrit 34.7 % (35.3-44.9); Hemoglobin 10.5 g/dL (11.5-15.4); Mean Corpuscular HGB Conc 30.3 g/dL (31.6-35.5); Mean Corpuscular Hemoglobin 26.4 pg (28.0-33.3); Mean Corpuscular Volume 87.4 fL (83.0-100.0); Platelet Count 255 K/mcL (140-400); Red Blood Count 3.97 M/mcL (3.82-4.97); Red Cell Distribution Width 17.7 % (11.5-14.5); White Blood Count 8.1 K/mcL (4.3-11.1)
[2020-09-18 20:53] LABS: Heparin anti-factor XA UFH < 0.04 IU/mL (0.30-0.70); INR 1.2; Prothrombin Time 13.5 Seconds (9.4-12.1)
[2020-09-18] MEDS ORDERED: Naloxone 0.4 MG/ML INJ IVP PRN (21:15)
[2020-09-18] MEDS ORDERED: D5% in Water 1,000 ML IVC PRN (21:20)
[2020-09-18] MEDS ORDERED: Dextrose Gel 15 GM/37.5 ML TUBE PO PRN ×2 (21:20)
[2020-09-18] MEDS ORDERED: *HR* Dextrose 50 % in Water (Vial) 50 ML VIAL IVP PRN (21:20)
[2020-09-19] MEDS ORDERED: GI Cocktail 40 ML EACH PO ONE (00:15)
[2020-09-19] MEDS: Morphine Sulfate 2 MG/ML SYRINGE IVP PRN ×4 (00:16→06:45)
[2020-09-19 01:04] LABS: Basophils % 0.3 %; Eosinophils # 0.2 K/mcL (0.0-0.6); Eosinophils % 2.3 %; Hematocrit 35.6 % (35.3-44.9); Hemoglobin 10.9 g/dL (11.5-15.4); Immature Granulocytes % 0.4 % (0-4); Lymphocytes # 1.8 K/mcL (0.6-4.6); Lymphocytes % 22.3 %; Mean Corpuscular HGB Conc 30.6 g/dL (31.6-35.5); Mean Corpuscular Volume 88.1 fL (83.0-100.0); Monocytes # 0.4 K/mcL (0.0-1.3); Monocytes % 4.9 %; Neutrophils # 5.5 K/mcL (1.6-8.9); Platelet Count 267 K/mcL (140-400); Red Blood Count 4.04 M/mcL (3.82-4.97); Red Cell Distribution Width 17.9 % (11.5-14.5); Segmented Neutrophils % 69.8 %; White Blood Count 7.8 K/mcL (4.3-11.1)
[2020-09-19 01:27] LABS: BUN/Creatinine Ratio 19 (6-26); Blood Urea Nitrogen 34 mg/dL (8-23); Calcium 8.8 mg/dL (8.6-10.3); Carbon Dioxide 22 mEq/L (23-29); Chloride 103 mEq/L (98-107); Glucose 208 mg/dL (70-105); Osmolality,Calculated 292 (280-300); Potassium 3.6 mEq/L (3.5-5.1); Sodium 134 mEq/L (136-145); Troponin I < 0.03 ng/mL (< 0.04); eGFR For African Americans 34 (> 60); eGFR For Non-African Americans 28 (> 60)
[2020-09-19 01:47] LABS: Bilirubin,Urine Negative (Negative); Blood,Urine Negative (Negative); Budding Yeast,Urine Few per hpf (None Seen); Clarity,Urine Clear (Clear); Color,Urine Light-Yellow (Yellow); Glucose,Urine (UA) 300 mg/dL (Normal); Ketones,Urine Negative (Negative); Leukocyte Esterase,Urine Large (Negative); Mucus,Urine Few per lpf (None-Few); Nitrite,Urine Negative (Negative); PH,Urine 5.5 pH Units (5.0-8.0); Protein,Urine Negative (Neg-Trace); Specific Gravity,Urine 1.017 (1.010-1.025); Squamous Epithelial Cell,Urine Few per hpf (None-Few); Urobilinogen,Urine Normal (Normal); WBC,Urine 15-30 per hpf (0-3)
[2020-09-19] MEDS: Insulin LISPRO 300 UNITS/3 ML VIAL SUBQ SCH ×4 (07:50→19:28)
[2020-09-19] MEDS: Gabapentin 100 MG CAPSULE PO SCH ×2 (08:52→19:32)
[2020-09-19] MEDS: Aspirin 81 MG TAB.CHEW PO SCH (08:52)
[2020-09-19] MEDS: *HR* Ticagrelor 90 MG TABLET PO SCH ×2 (08:53→19:32)
[2020-09-19] MEDS: Ranolazine 500 MG TAB.ER.12H PO SCH ×2 (08:53→19:32)
[2020-09-19] MEDS: carvediloL 25 MG TABLET PO SCH ×2 (08:53→16:40)
[2020-09-19] MEDS: amLODIPine 5 MG TABLET PO SCH (10:05)
[2020-09-19] MEDS: Acetaminophen 325 MG TABLET PO PRN (15:23)
[2020-09-19] MEDS: *HR* Heparin 5,000 UNIT/ML VIAL SQ SCH (16:40)
[2020-09-19] MEDS ORDERED: Amoxicillin/Clavulanate 500 MG TABLET PO SCH (17:00)
[2020-09-20] MEDS: *HR* Heparin 5,000 UNIT/ML VIAL SQ SCH ×2 (05:36→17:10)
[2020-09-20] MEDS: Insulin LISPRO 300 UNITS/3 ML VIAL SUBQ SCH ×4 (08:39→20:24)
[2020-09-20] MEDS: Aspirin 81 MG TAB.CHEW PO SCH (08:40)
[2020-09-20] MEDS: *HR* Ticagrelor 90 MG TABLET PO SCH ×2 (08:40→20:23)
[2020-09-20] MEDS: carvediloL 25 MG TABLET PO SCH ×2 (08:40→17:09)
[2020-09-20] MEDS: amLODIPine 5 MG TABLET PO SCH (08:40)
[2020-09-20] MEDS: Isosorbide MONOnitrate (24 HR) 60 MG TAB.ER.24H PO SCH (08:40)
[2020-09-20] MEDS: Gabapentin 100 MG CAPSULE PO SCH ×2 (08:41→20:23)
[2020-09-20] MEDS: Ranolazine 500 MG TAB.ER.12H PO SCH ×2 (08:41→20:23)
[2020-09-20] MEDS: Acetaminophen 325 MG TABLET PO PRN (09:19)
[2020-09-20 11:33] LABS: Basophils % 0.2 %; Eosinophils # 0.2 K/mcL (0.0-0.6); Hematocrit 33.7 % (35.3-44.9); Hemoglobin 10.2 g/dL (11.5-15.4); Immature Granulocytes % 0.3 % (0-4); Lymphocytes # 1.1 K/mcL (0.6-4.6); Lymphocytes % 12.4 %; Mean Corpuscular HGB Conc 30.3 g/dL (31.6-35.5); Mean Corpuscular Hemoglobin 26.4 pg (28.0-33.3); Mean Corpuscular Volume 87.3 fL (83.0-100.0); Mean Platelet Volume 10.1 fL (9.4-12.4); Monocytes # 0.6 K/mcL (0.0-1.3); Monocytes % 6.5 %; Neutrophils # 7.2 K/mcL (1.6-8.9); Platelet Count 274 K/mcL (140-400); Red Blood Count 3.86 M/mcL (3.82-4.97); Red Cell Distribution Width 18.2 % (11.5-14.5); Segmented Neutrophils % 78.6 %; White Blood Count 9.1 K/mcL (4.3-11.1)
[2020-09-20 11:53] LABS: Calcium 9.4 mg/dL (8.6-10.3); Potassium 4.4 mEq/L (3.5-5.1)
[2020-09-20] MEDS ORDERED: *HR* OxyCODONE/APAP 5/325 TABLET PO ONE (14:11)
[2020-09-21] MEDS: *HR* Heparin 5,000 UNIT/ML VIAL SQ SCH (05:12)
[2020-09-21] MEDS: Insulin LISPRO 300 UNITS/3 ML VIAL SUBQ SCH ×2 (07:31→11:46)
[2020-09-21] MEDS: carvediloL 25 MG TABLET PO SCH (08:31)
[2020-09-21] MEDS: amLODIPine 5 MG TABLET PO SCH (08:31)
[2020-09-21] MEDS: Gabapentin 100 MG CAPSULE PO SCH (08:31)
[2020-09-21] MEDS: Isosorbide MONOnitrate (24 HR) 60 MG TAB.ER.24H PO SCH (08:31)
[2020-09-21] MEDS: Ranolazine 500 MG TAB.ER.12H PO SCH (08:31)
[2020-09-21] MEDS: Aspirin 81 MG TAB.CHEW PO SCH (08:31)
[2020-09-21] MEDS: *HR* Ticagrelor 90 MG TABLET PO SCH (08:32)
[2020-09-21 11:23] VITALS: BP 151/53
== END 2020-09-21 14:55 | disposition home health service (06) ==
LOC: EMEROOARM 18:07 → 2ANU 18:07 → SUATTDRO 20:30 → 2ANU 20:56
PROVIDERS: ADMIT Internal Medicine Nephrology; ATTEND Internal Medicine

== ENCOUNTER 2020-10-10 23:00 | Observation (INO) ==
[2020-10-10] MEDS ORDERED: Morphine Sulfate 2 MG/ML SYRINGE IVP ONE (23:07)
[2020-10-10] MEDS ORDERED: Ondansetron 4 MG/2 ML VIAL IVP ONE (23:07)
[2020-10-11 00:16] LABS: Basophils % 0.4 %; Eosinophils # 0.2 K/mcL (0.0-0.6); Eosinophils % 2.5 %; Hematocrit 33.9 % (35.3-44.9); Hemoglobin 10.5 g/dL (11.5-15.4); Immature Granulocytes % 0.6 % (0-4); Lymphocytes # 1.7 K/mcL (0.6-4.6); Lymphocytes % 20.8 %; Mean Corpuscular Hemoglobin 27.3 pg (28.0-33.3); Mean Corpuscular Volume 88.1 fL (83.0-100.0); Mean Platelet Volume 10.5 fL (9.4-12.4); Monocytes # 0.7 K/mcL (0.0-1.3); Monocytes % 9.2 %; Neutrophils # 5.3 K/mcL (1.6-8.9); Platelet Count 237 K/mcL (140-400); Red Blood Count 3.85 M/mcL (3.82-4.97); Red Cell Distribution Width 18.8 % (11.5-14.5); Segmented Neutrophils % 66.5 %
[2020-10-11 00:33] LABS: BUN/Creatinine Ratio 16 (6-26); Blood Urea Nitrogen 29 mg/dL (8-23); Calcium 8.7 mg/dL (8.6-10.3); Carbon Dioxide 23 mEq/L (23-29); Chloride 103 mEq/L (98-107); Glucose 119 mg/dL (70-105); Osmolality,Calculated 289 (280-300); Potassium 4.4 mEq/L (3.5-5.1); Sodium 136 mEq/L (136-145); eGFR For African Americans 34 (> 60); eGFR For Non-African Americans 28 (> 60)
[2020-10-11 00:34] LABS: INR 1.2; Prothrombin Time 13.6 Seconds (9.4-12.1); Troponin I < 0.03 ng/mL (< 0.04)
[2020-10-11 00:37] LABS: Activated Partial Thrombo Time 28.4 Seconds (26.0-36.0)
[2020-10-11] MEDS: Nitroglycerin 0.4 MG TAB.SUBL SL PRN ×3 (00:44→01:10)
[2020-10-11] MEDS ORDERED: Naloxone 0.4 MG/ML INJ IVP PRN (01:07)
[2020-10-11] MEDS ORDERED: Ondansetron 4 MG/2 ML VIAL IVP PRN (01:07)
[2020-10-11] MEDS ORDERED: 0.9 % Sodium Chloride 250 ML ONE (02:29)
[2020-10-11] MEDS ORDERED: Perflutren Lipid Microsphere 1.3 ML in 0.9 % Sodium Chloride 8.7 ML IVP PRN (03:35)
[2020-10-11] MEDS ORDERED: *HR* Heparin 5,000 UNIT/ML VIAL IVP ONE (04:10)
[2020-10-11] MEDS ORDERED: *HR* Heparin 5,000 UNIT/ML VIAL IVP PRN ×2 (04:10)
[2020-10-11] MEDS ORDERED: Heparin 25,000UNIT/250ML 1/2NS 25,000 UNIT/250 ML IV.SOLN IVC SCH (04:15)
[2020-10-11 05:43] LABS: INR 1.2; Prothrombin Time 13.7 Seconds (9.4-12.1)
[2020-10-11 05:50] LABS: Calcium 8.6 mg/dL (8.6-10.3); Potassium 4.3 mEq/L (3.5-5.1)
[2020-10-11 05:51] LABS: Hematocrit 32.6 % (35.3-44.9); Hemoglobin 10.4 g/dL (11.5-15.4); Mean Corpuscular HGB Conc 31.9 g/dL (31.6-35.5); Mean Corpuscular Hemoglobin 28.1 pg (28.0-33.3); Mean Corpuscular Volume 88.1 fL (83.0-100.0); Mean Platelet Volume 10.9 fL (9.4-12.4); Platelet Count 238 K/mcL (140-400); Red Cell Distribution Width 18.8 % (11.5-14.5); White Blood Count 8.4 K/mcL (4.3-11.1)
[2020-10-11 06:00] LABS: Activated Partial Thrombo Time > 360.0 Seconds (26.0-36.0); Heparin anti-factor XA UFH 1.54 IU/mL (0.30-0.70)
[2020-10-11] MEDS ORDERED: Nitroglycerin 0.4 MG TAB.SUBL SL PRN (08:47)
[2020-10-11] MEDS ORDERED: amLODIPine 5 MG TABLET PO SCH (09:00)
[2020-10-11] MEDS: Aspirin 81 MG TAB.CHEW PO SCH (11:32)
[2020-10-11] MEDS: Isosorbide MONOnitrate (24 HR) 60 MG TAB.ER.24H PO SCH (11:32)
[2020-10-11] MEDS: tiZANidine 4 MG TABLET PO SCH ×2 (11:32→20:46)
[2020-10-11] MEDS: *HR* Ticagrelor 90 MG TABLET PO SCH ×2 (11:33→20:46)
[2020-10-11] MEDS: Ranolazine 500 MG TAB.ER.12H PO SCH ×2 (11:33→20:52)
[2020-10-11] MEDS: Gabapentin 100 MG CAPSULE PO SCH ×2 (11:33→20:46)
[2020-10-11] MEDS: amLODIPine 5 MG TABLET PO SCH (11:33)
[2020-10-11] MEDS ORDERED: *HR* Dextrose 50 % in Water (Vial) 50 ML VIAL IVP PRN (11:49)
[2020-10-11] MEDS ORDERED: Dextrose Gel 15 GM/37.5 ML TUBE PO PRN ×2 (11:49)
[2020-10-11] MEDS ORDERED: D5% in Water 1,000 ML IVC PRN (11:49)
[2020-10-11] MEDS: Insulin LISPRO 300 UNITS/3 ML VIAL SUBQ SCH ×3 (12:47→21:04)
[2020-10-11] MEDS: carvediloL 25 MG TABLET PO SCH (18:10)
[2020-10-11] MEDS: *HR* Heparin 5,000 UNIT/ML VIAL SQ SCH (18:11)
[2020-10-12] MEDS: *HR* Heparin 5,000 UNIT/ML VIAL SQ SCH ×2 (05:14→17:30)
[2020-10-12] MEDS: Insulin LISPRO 300 UNITS/3 ML VIAL SUBQ SCH ×4 (08:48→22:00)
[2020-10-12] MEDS: tiZANidine 4 MG TABLET PO SCH ×2 (09:10→19:55)
[2020-10-12] MEDS: Ranolazine 500 MG TAB.ER.12H PO SCH ×2 (09:11→19:55)
[2020-10-12] MEDS: *HR* Ticagrelor 90 MG TABLET PO SCH ×2 (09:11→19:55)
[2020-10-12] MEDS: Isosorbide MONOnitrate (24 HR) 60 MG TAB.ER.24H PO SCH (09:11)
[2020-10-12] MEDS: Gabapentin 100 MG CAPSULE PO SCH ×2 (09:11→19:55)
[2020-10-12] MEDS: amLODIPine 5 MG TABLET PO SCH (09:12)
[2020-10-12] MEDS: Aspirin 81 MG TAB.CHEW PO SCH (09:12)
[2020-10-12] MEDS: carvediloL 25 MG TABLET PO SCH ×2 (09:12→17:30)
[2020-10-12 10:37] LABS: Potassium 4.6 mEq/L (3.5-5.1)
[2020-10-13] MEDS: *HR* Heparin 5,000 UNIT/ML VIAL SQ SCH (05:15)
[2020-10-13 06:28] VITALS: BP 132/68
[2020-10-13] MEDS ORDERED: amLODIPine 5 MG TABLET PO SCH (09:00)
[2020-10-13] MEDS: Gabapentin 100 MG CAPSULE PO SCH (09:36)
[2020-10-13] MEDS: Insulin LISPRO 300 UNITS/3 ML VIAL SUBQ SCH ×2 (09:36→12:12)
[2020-10-13] MEDS: Isosorbide MONOnitrate (24 HR) 60 MG TAB.ER.24H PO SCH (09:37)
[2020-10-13] MEDS: carvediloL 25 MG TABLET PO SCH (09:37)
[2020-10-13] MEDS: Aspirin 81 MG TAB.CHEW PO SCH (09:37)
[2020-10-13] MEDS: Ranolazine 500 MG TAB.ER.12H PO SCH (09:37)
[2020-10-13] MEDS: tiZANidine 4 MG TABLET PO SCH (09:38)
[2020-10-13] MEDS: *HR* Ticagrelor 90 MG TABLET PO SCH (09:38)
== END 2020-10-13 14:42 | disposition home health service (06) ==
LOC: 3ANU 23:00 → EMEROOARM 23:00 → SUATTDRO 10-11 01:15 → 3ANU 10-11 01:50
PROVIDERS: ADMIT Internal Medicine; ATTEND Internal Medicine

== ENCOUNTER 2020-10-29 22:08 | Observation (INO) ==
[2020-10-29] MEDS ORDERED: *HR* FentaNYL (PF) 100 MCG/2 ML VIAL IVP ONE (22:14)
[2020-10-29] MEDS ORDERED: Nitroglycerin 0.4 MG TAB.SUBL SL PRN (22:14)
[2020-10-29 23:00] LABS: Basophils % 0.3 %; Eosinophils # 0.2 K/mcL (0.0-0.6); Eosinophils % 1.8 %; Hematocrit 32.2 % (35.3-44.9); Hemoglobin 10.1 g/dL (11.5-15.4); Immature Granulocytes % 0.5 % (0-4); Lymphocytes # 1.4 K/mcL (0.6-4.6); Lymphocytes % 14.6 %; Mean Corpuscular HGB Conc 31.4 g/dL (31.6-35.5); Mean Corpuscular Hemoglobin 28.3 pg (28.0-33.3); Mean Corpuscular Volume 90.2 fL (83.0-100.0); Mean Platelet Volume 10.2 fL (9.4-12.4); Monocytes # 0.7 K/mcL (0.0-1.3); Monocytes % 6.7 %; Neutrophils # 7.5 K/mcL (1.6-8.9); Platelet Count 282 K/mcL (140-400); Red Blood Count 3.57 M/mcL (3.82-4.97); Red Cell Distribution Width 19.2 % (11.5-14.5); Segmented Neutrophils % 76.1 %; White Blood Count 9.9 K/mcL (4.3-11.1)
[2020-10-29 23:08] LABS: INR 1.2; Prothrombin Time 14.2 Seconds (9.4-12.1)
[2020-10-29 23:25] LABS: BUN/Creatinine Ratio 18 (6-26); Blood Urea Nitrogen 27 mg/dL (8-23); Calcium 9.4 mg/dL (8.6-10.3); Carbon Dioxide 23 mEq/L (23-29); Chloride 103 mEq/L (98-107); Glucose 128 mg/dL (70-105); Osmolality,Calculated 287 (280-300); Potassium 4.3 mEq/L (3.5-5.1); Sodium 135 mEq/L (136-145); eGFR For African Americans 42 (> 60); eGFR For Non-African Americans 34 (> 60)
[2020-10-29 23:27] LABS: Troponin I < 0.03 ng/mL (< 0.04)
[2020-10-30] MEDS ORDERED: Acetaminophen 325 MG TABLET PO PRN (01:25)
[2020-10-30] MEDS ORDERED: Ondansetron 4 MG/2 ML VIAL IVP PRN (01:25)
[2020-10-30] MEDS ORDERED: Naloxone 0.4 MG/ML INJ IVP PRN (01:25)
[2020-10-30] MEDS ORDERED: Dextrose Gel 15 GM/37.5 ML TUBE PO PRN ×2 (03:52)
[2020-10-30] MEDS ORDERED: D5% in Water 1,000 ML IVC PRN (03:52)
[2020-10-30] MEDS ORDERED: *HR* Dextrose 50 % in Water (Vial) 50 ML VIAL IVP PRN (03:52)
[2020-10-30 03:55] LABS: Basophils % 0.3 %; Eosinophils # 0.2 K/mcL (0.0-0.6); Hemoglobin 10.1 g/dL (11.5-15.4); Immature Granulocytes % 0.4 % (0-4); Lymphocytes # 1.5 K/mcL (0.6-4.6); Lymphocytes % 16.6 %; Mean Corpuscular HGB Conc 31.6 g/dL (31.6-35.5); Mean Corpuscular Hemoglobin 28.5 pg (28.0-33.3); Mean Corpuscular Volume 90.4 fL (83.0-100.0); Mean Platelet Volume 10.4 fL (9.4-12.4); Monocytes # 0.6 K/mcL (0.0-1.3); Monocytes % 6.6 %; Neutrophils # 6.8 K/mcL (1.6-8.9); Platelet Count 282 K/mcL (140-400); Red Blood Count 3.54 M/mcL (3.82-4.97); Red Cell Distribution Width 19.3 % (11.5-14.5); Segmented Neutrophils % 74.1 %; White Blood Count 9.1 K/mcL (4.3-11.1)
[2020-10-30 04:19] LABS: Alanine Aminotransferase 19 Units/L (7-52); Albumin 3.7 g/dL (3.5-5.7); Albumin/Globulin Ratio 1.1 (1.1-2.2); Alkaline Phosphatase 62 Units/L (34-104); Aspartate Amino Transferase 14 Units/L (13-39); BUN/Creatinine Ratio 17 (6-26); Bilirubin,Total 0.4 mg/dL (0.3-1.0); Blood Urea Nitrogen 26 mg/dL (8-23); Calcium 8.9 mg/dL (8.6-10.3); Carbon Dioxide 21 mEq/L (23-29); Chloride 103 mEq/L (98-107); Globulin 3.3 g/dL (2.4-3.5); Glucose 118 mg/dL (70-105); Magnesium 1.7 mg/dL (1.6-2.6); Osmolality,Calculated 286 (280-300); Phosphorous 3.2 mg/dL (2.7-4.5); Potassium 3.7 mEq/L (3.5-5.1); Sodium 135 mEq/L (136-145); Troponin I < 0.03 ng/mL (< 0.04); eGFR For African Americans 42 (> 60); eGFR For Non-African Americans 35 (> 60)
[2020-10-30] MEDS: Insulin LISPRO 300 UNITS/3 ML VIAL SUBQ SCH ×2 (05:42→12:08)
[2020-10-30] MEDS ORDERED: *HR* Heparin 5,000 UNIT/ML VIAL SQ SCH (06:00)
[2020-10-30] MEDS ORDERED: *HR* Ticagrelor 90 MG TABLET PO SCH (09:00)
[2020-10-30] MEDS ORDERED: Gabapentin 100 MG CAPSULE PO SCH (09:00)
[2020-10-30] MEDS ORDERED: Aspirin 81 MG TAB.CHEW PO SCH (09:00)
[2020-10-30] MEDS ORDERED: Isosorbide MONOnitrate (24 HR) 60 MG TAB.ER.24H PO SCH (09:00)
[2020-10-30] MEDS ORDERED: amLODIPine 5 MG TABLET PO SCH (09:00)
[2020-10-30] MEDS ORDERED: Ranolazine 500 MG TAB.ER.12H PO SCH (09:00)
[2020-10-30] MEDS ORDERED: Isovue-370 500 ML BOTTLE IVP ONE (11:09)
[2020-10-30 11:31] VITALS: BP 135/70
[2020-10-30] MEDS ORDERED: carvediloL 25 MG TABLET PO SCH (17:00)
== END 2020-10-30 16:35 | disposition home or self-care (01) ==
LOC: EMEROOARM 22:08 → 3BNU 22:08
PROVIDERS: ADMIT Family Medicine; ATTEND Family Medicine

== ENCOUNTER 2020-11-14 19:07 | Observation (INO) ==
[2020-11-14] MEDS ORDERED: Isovue-370 500 ML BOTTLE IVP ONE ×2 (19:15→19:16)
[2020-11-14 19:32] LABS: Hematocrit 33.8 % (35.3-44.9); Hemoglobin 10.8 g/dL (11.5-15.4); Mean Corpuscular Hemoglobin 28.3 pg (28.0-33.3); Mean Corpuscular Volume 88.7 fL (83.0-100.0); Mean Platelet Volume 10.2 fL (9.4-12.4); Platelet Count 268 K/mcL (140-400); Red Blood Count 3.81 M/mcL (3.82-4.97); White Blood Count 9.5 K/mcL (4.3-11.1)
[2020-11-14 19:45] LABS: INR 1.1; Prothrombin Time 13.2 Seconds (9.4-12.1)
[2020-11-14 19:47] LABS: Activated Partial Thrombo Time 25.7 Seconds (26.0-36.0)
[2020-11-14 19:54] LABS: BUN/Creatinine Ratio 19 (6-26); Blood Urea Nitrogen 30 mg/dL (8-23); Calcium 9.1 mg/dL (8.6-10.3); Carbon Dioxide 21 mEq/L (23-29); Chloride 102 mEq/L (98-107); Ethanol < 10 mg/dL (Less than 10); Glucose 120 mg/dL (70-105); Osmolality,Calculated 281 (280-300); Potassium 4.6 mEq/L (3.5-5.1); Sodium 132 mEq/L (136-145); Troponin I < 0.03 ng/mL (< 0.04); eGFR For African Americans 42 (> 60); eGFR For Non-African Americans 34 (> 60)
[2020-11-14] MEDS ORDERED: 0.9 % Sodium Chloride 1,000 ML IVC ONE (20:01)
[2020-11-14 21:46] LABS: Bilirubin,Urine Negative (Negative); Blood,Urine Negative (Negative); Clarity,Urine Clear (Clear); Color,Urine Colorless (Yellow); Glucose,Urine (UA) Normal (Normal); Ketones,Urine Negative (Negative); Leukocyte Esterase,Urine Negative (Negative); Nitrite,Urine Negative (Negative); Protein,Urine Negative (Neg-Trace); Specific Gravity,Urine 1.014 (1.010-1.025); Urobilinogen,Urine Normal (Normal)
[2020-11-14 21:55] LABS: Amphetamine Screen,Urine Negative ng/mL (Cutoff=1000); Barbiturate Screen,Urine Negative ng/mL (Cutoff=200); Benzodiazepines Screen,Urine Negative ng/mL (Cutoff=200); Cannabinoid Screen,Urine Negative ng/mL (Cutoff = 50); Cocaine Screen,Urine Negative ng/mL (Cutoff= 300); Opiate Screen,Urine Negative ng/mL (Cutoff=300); Phencyclidine Screen,Urine Negative ng/mL (Cutoff=25)
[2020-11-14] MEDS ORDERED: Nitroglycerin 0.4 MG TAB.SUBL SL PRN (22:13)
[2020-11-14] MEDS ORDERED: D5% in Water 1,000 ML IVC PRN (22:23)
[2020-11-14] MEDS ORDERED: *HR* Dextrose 50 % in Water (Vial) 50 ML VIAL IVP PRN (22:23)
[2020-11-14] MEDS ORDERED: Dextrose Gel 15 GM/37.5 ML TUBE PO PRN ×2 (22:23)
[2020-11-14] MEDS ORDERED: Naloxone 0.4 MG/ML INJ IVP PRN (22:25)
[2020-11-14] MEDS ORDERED: Ondansetron 4 MG/2 ML VIAL IVP PRN (22:25)
[2020-11-14] MEDS: *HR* Ticagrelor 90 MG TABLET PO SCH (23:02)
[2020-11-14] MEDS: carvediloL 25 MG TABLET PO SCH (23:02)
[2020-11-15 00:36] LABS: Basophils % 0.5 %; Eosinophils # 0.2 K/mcL (0.0-0.6); Hematocrit 35.1 % (35.3-44.9); Hemoglobin 11.1 g/dL (11.5-15.4); Immature Granulocytes % 0.6 % (0-4); Lymphocytes # 1.5 K/mcL (0.6-4.6); Lymphocytes % 16.5 %; Mean Corpuscular HGB Conc 31.6 g/dL (31.6-35.5); Mean Corpuscular Volume 88.4 fL (83.0-100.0); Mean Platelet Volume 10.4 fL (9.4-12.4); Monocytes # 0.5 K/mcL (0.0-1.3); Monocytes % 5.6 %; Neutrophils # 6.6 K/mcL (1.6-8.9); Platelet Count 265 K/mcL (140-400); Red Blood Count 3.97 M/mcL (3.82-4.97); Segmented Neutrophils % 74.8 %; White Blood Count 8.8 K/mcL (4.3-11.1)
[2020-11-15 00:46] LABS: BUN/Creatinine Ratio 17 (6-26); Blood Urea Nitrogen 26 mg/dL (8-23); Calcium 8.8 mg/dL (8.6-10.3); Carbon Dioxide 23 mEq/L (23-29); Chloride 103 mEq/L (98-107); Glucose 135 mg/dL (70-105); Osmolality,Calculated 287 (280-300); Potassium 3.8 mEq/L (3.5-5.1); Sodium 135 mEq/L (136-145); eGFR For African Americans 43 (> 60); eGFR For Non-African Americans 35 (> 60)
[2020-11-15 00:47] LABS: Troponin I < 0.03 ng/mL (< 0.04)
[2020-11-15] MEDS: Acetaminophen 325 MG TABLET PO PRN ×2 (01:24→16:21)
[2020-11-15] MEDS: *HR* Ticagrelor 90 MG TABLET PO SCH ×2 (08:33→20:05)
[2020-11-15] MEDS: Isosorbide MONOnitrate (24 HR) 60 MG TAB.ER.24H PO SCH (08:33)
[2020-11-15] MEDS: carvediloL 25 MG TABLET PO SCH ×2 (08:33→16:21)
[2020-11-15] MEDS: Insulin LISPRO 300 UNITS/3 ML VIAL SUBQ SCH ×4 (08:33→20:05)
[2020-11-15] MEDS: Aspirin 81 MG TAB.CHEW PO SCH (08:34)
[2020-11-15] MEDS: Ranolazine 500 MG TAB.ER.12H PO SCH ×2 (08:34→20:05)
[2020-11-15] MEDS: amLODIPine 5 MG TABLET PO SCH (08:34)
[2020-11-15] MEDS: Gabapentin 100 MG CAPSULE PO SCH ×2 (08:34→20:05)
[2020-11-15] MEDS: tiZANidine 4 MG TABLET PO SCH ×2 (08:35→20:04)
[2020-11-15] MEDS ORDERED: Isovue-370 500 ML BOTTLE IVP ONE (15:11)
[2020-11-16 05:52] LABS: Albumin 3.5 g/dL (3.5-5.7); Albumin/Globulin Ratio 1.2 (1.1-2.2); Bilirubin,Total 0.3 mg/dL (0.3-1.0); Magnesium 1.9 mg/dL (1.6-2.6); Potassium 4.3 mEq/L (3.5-5.1); Total Protein 6.5 g/dL (6.4-8.9)
[2020-11-16] MEDS: Insulin LISPRO 300 UNITS/3 ML VIAL SUBQ SCH ×4 (08:47→21:41)
[2020-11-16] MEDS: Ranolazine 500 MG TAB.ER.12H PO SCH ×2 (08:55→20:30)
[2020-11-16] MEDS: Gabapentin 100 MG CAPSULE PO SCH ×2 (08:55→20:30)
[2020-11-16] MEDS: *HR* Ticagrelor 90 MG TABLET PO SCH ×2 (08:55→20:30)
[2020-11-16] MEDS: Aspirin 81 MG TAB.CHEW PO SCH (08:56)
[2020-11-16] MEDS: tiZANidine 4 MG TABLET PO SCH ×2 (08:56→20:31)
[2020-11-16] MEDS: amLODIPine 5 MG TABLET PO SCH (08:56)
[2020-11-16] MEDS: Isosorbide MONOnitrate (24 HR) 60 MG TAB.ER.24H PO SCH (08:56)
[2020-11-16] MEDS: carvediloL 25 MG TABLET PO SCH ×2 (08:56→16:51)
[2020-11-16] MEDS: Acetaminophen 325 MG TABLET PO PRN (08:59)
[2020-11-16] MEDS ORDERED: 0.9 % Sodium Chloride 1,000 ML IVC SCH (13:15)
[2020-11-16] MEDS ORDERED: Isovue-370 500 ML BOTTLE IVP ONE (17:37)
[2020-11-17 01:21] LABS: Basophils % 0.4 %; Eosinophils # 0.3 K/mcL (0.0-0.6); Eosinophils % 2.8 %; Hematocrit 31.6 % (35.3-44.9); Hemoglobin 9.9 g/dL (11.5-15.4); Immature Granulocytes % 0.4 % (0-4); Lymphocytes # 1.2 K/mcL (0.6-4.6); Lymphocytes % 12.4 %; Mean Corpuscular HGB Conc 31.3 g/dL (31.6-35.5); Mean Corpuscular Hemoglobin 29.2 pg (28.0-33.3); Mean Corpuscular Volume 93.2 fL (83.0-100.0); Mean Platelet Volume 11.1 fL (9.4-12.4); Monocytes # 0.7 K/mcL (0.0-1.3); Monocytes % 6.7 %; Neutrophils # 7.7 K/mcL (1.6-8.9); Platelet Count 244 K/mcL (140-400); Red Blood Count 3.39 M/mcL (3.82-4.97); Red Cell Distribution Width 18.6 % (11.5-14.5); Segmented Neutrophils % 77.3 %
[2020-11-17 01:41] LABS: Calcium 8.9 mg/dL (8.6-10.3); Potassium 4.1 mEq/L (3.5-5.1)
[2020-11-17 07:38] VITALS: BP 133/74
[2020-11-17] MEDS: Insulin LISPRO 300 UNITS/3 ML VIAL SUBQ SCH (08:44)
[2020-11-17] MEDS: Aspirin 81 MG TAB.CHEW PO SCH (08:48)
[2020-11-17] MEDS: amLODIPine 5 MG TABLET PO SCH (08:48)
[2020-11-17] MEDS: tiZANidine 4 MG TABLET PO SCH (08:48)
[2020-11-17] MEDS: carvediloL 25 MG TABLET PO SCH (08:49)
[2020-11-17] MEDS: *HR* Ticagrelor 90 MG TABLET PO SCH (08:49)
[2020-11-17] MEDS: Isosorbide MONOnitrate (24 HR) 60 MG TAB.ER.24H PO SCH (08:49)
[2020-11-17] MEDS: Gabapentin 100 MG CAPSULE PO SCH (08:49)
[2020-11-17] MEDS: Ranolazine 500 MG TAB.ER.12H PO SCH (08:49)
== END 2020-11-17 12:05 | disposition home health service (06) ==
LOC: 3BNU 19:07 → EMEROOARM 19:07 → SUATTDRO 21:48 → 3BNU 22:21
PROVIDERS: ADMIT Internal Medicine; ATTEND Family Medicine

== ENCOUNTER 2020-11-26 17:16 | Observation (INO) ==
[2020-11-26] MEDS ORDERED: Isovue-370 500 ML BOTTLE IVP ONE (17:26)
[2020-11-26 17:40] LABS: Hemoglobin 10.9 g/dL (11.5-15.4); Mean Corpuscular HGB Conc 31.1 g/dL (31.6-35.5); Mean Corpuscular Hemoglobin 28.2 pg (28.0-33.3); Mean Corpuscular Volume 90.7 fL (83.0-100.0); Mean Platelet Volume 10.2 fL (9.4-12.4); Platelet Count 263 K/mcL (140-400); Red Blood Count 3.86 M/mcL (3.82-4.97); Red Cell Distribution Width 17.4 % (11.5-14.5); White Blood Count 7.3 K/mcL (4.3-11.1)
[2020-11-26 17:46] LABS: INR 1.2; Prothrombin Time 13.3 Seconds (9.4-12.1)
[2020-11-26 17:49] LABS: Activated Partial Thrombo Time 29.9 Seconds (26.0-36.0)
[2020-11-26 18:00] LABS: BUN/Creatinine Ratio 16 (6-26); Blood Urea Nitrogen 25 mg/dL (8-23); Calcium 8.9 mg/dL (8.6-10.3); Carbon Dioxide 22 mEq/L (23-29); Chloride 103 mEq/L (98-107); Glucose 122 mg/dL (70-105); Osmolality,Calculated 286 (280-300); Potassium 4.5 mEq/L (3.5-5.1); Sodium 135 mEq/L (136-145); Troponin I < 0.03 ng/mL (< 0.04); eGFR For African Americans 42 (> 60); eGFR For Non-African Americans 35 (> 60)
[2020-11-26] MEDS ORDERED: Aspirin 81 MG TAB.CHEW PO ONE (18:46)
[2020-11-26] MEDS ORDERED: D5% in Water 1,000 ML IVC PRN (21:11)
[2020-11-26] MEDS ORDERED: Dextrose Gel 15 GM/37.5 ML TUBE PO PRN ×2 (21:11)
[2020-11-26] MEDS ORDERED: *HR* Dextrose 50 % in Water (Vial) 50 ML VIAL IVP PRN (21:11)
[2020-11-26] MEDS ORDERED: Acetaminophen/Butalbital/CaffeineTABLET PO PRN (21:12)
[2020-11-26] MEDS ORDERED: Ondansetron 4 MG/2 ML VIAL IVP PRN (21:12)
[2020-11-26] MEDS ORDERED: Melatonin 3 MG TABLET PO PRN (21:12)
[2020-11-26] MEDS ORDERED: Naloxone 0.4 MG/ML INJ IVP PRN (21:12)
[2020-11-26] MEDS: Nitroglycerin 0.4 MG TAB.SUBL SL PRN ×2 (21:42→21:59)
[2020-11-26] MEDS: *HR* HYDROcodone/Acet 5/325 mg TABLET PO PRN (22:15)
[2020-11-27] MEDS: *HR* HYDROcodone/Acet 5/325 mg TABLET PO PRN (05:37)
[2020-11-27] MEDS: *HR* Heparin 5,000 UNIT/ML VIAL SQ SCH ×2 (05:37→17:25)
[2020-11-27] MEDS: Insulin LISPRO 300 UNITS/3 ML VIAL SUBQ SCH ×3 (08:39→17:25)
[2020-11-27] MEDS: Ranolazine 500 MG TAB.ER.12H PO SCH ×2 (08:40→20:05)
[2020-11-27] MEDS: Aspirin 81 MG TAB.CHEW PO SCH (08:40)
[2020-11-27] MEDS: tiZANidine 4 MG TABLET PO SCH ×2 (08:40→20:05)
[2020-11-27] MEDS: Isosorbide MONOnitrate (24 HR) 60 MG TAB.ER.24H PO SCH (08:40)
[2020-11-27] MEDS: *HR* Ticagrelor 90 MG TABLET PO SCH ×2 (08:40→20:05)
[2020-11-27] MEDS: amLODIPine 5 MG TABLET PO SCH (08:40)
[2020-11-27] MEDS: Gabapentin 100 MG CAPSULE PO SCH ×2 (08:40→20:05)
[2020-11-27] MEDS: carvediloL 25 MG TABLET PO SCH ×2 (08:41→17:25)
[2020-11-27] MEDS ORDERED: Insulin LISPRO 300 UNITS/3 ML VIAL SUBQ SCH (21:00)
[2020-11-28] MEDS: *HR* HYDROcodone/Acet 5/325 mg TABLET PO PRN ×2 (01:13→15:22)
[2020-11-28] MEDS: Nitroglycerin 0.4 MG TAB.SUBL SL PRN ×3 (01:16→01:33)
[2020-11-28 01:17] LABS: Basophils % 0.5 %; Eosinophils # 0.2 K/mcL (0.0-0.6); Eosinophils % 3.2 %; Hematocrit 33.1 % (35.3-44.9); Hemoglobin 10.4 g/dL (11.5-15.4); Immature Granulocytes % 0.4 % (0-4); Lymphocytes # 1.2 K/mcL (0.6-4.6); Lymphocytes % 16.2 %; Mean Corpuscular HGB Conc 31.4 g/dL (31.6-35.5); Mean Corpuscular Hemoglobin 29.1 pg (28.0-33.3); Mean Corpuscular Volume 92.5 fL (83.0-100.0); Mean Platelet Volume 10.5 fL (9.4-12.4); Monocytes # 0.6 K/mcL (0.0-1.3); Monocytes % 8.5 %; Neutrophils # 5.3 K/mcL (1.6-8.9); Platelet Count 256 K/mcL (140-400); Red Blood Count 3.58 M/mcL (3.82-4.97); Red Cell Distribution Width 17.6 % (11.5-14.5); Segmented Neutrophils % 71.2 %; White Blood Count 7.5 K/mcL (4.3-11.1)
[2020-11-28 01:40] LABS: Calcium 9.1 mg/dL (8.6-10.3); Potassium 4.4 mEq/L (3.5-5.1)
[2020-11-28] MEDS: *HR* Heparin 5,000 UNIT/ML VIAL SQ SCH (05:27)
[2020-11-28] MEDS: Aspirin 81 MG TAB.CHEW PO SCH (08:35)
[2020-11-28] MEDS: tiZANidine 4 MG TABLET PO SCH (08:35)
[2020-11-28] MEDS: Gabapentin 100 MG CAPSULE PO SCH (08:36)
[2020-11-28] MEDS: Ranolazine 500 MG TAB.ER.12H PO SCH (08:36)
[2020-11-28] MEDS: *HR* Ticagrelor 90 MG TABLET PO SCH (08:36)
[2020-11-28] MEDS: amLODIPine 5 MG TABLET PO SCH (08:36)
[2020-11-28] MEDS: Isosorbide MONOnitrate (24 HR) 60 MG TAB.ER.24H PO SCH (08:37)
[2020-11-28] MEDS: carvediloL 25 MG TABLET PO SCH (08:37)
[2020-11-28] MEDS: Insulin LISPRO 300 UNITS/3 ML VIAL SUBQ SCH ×2 (08:37→12:11)
[2020-11-28 11:36] VITALS: BP 141/78
== END 2020-11-28 16:15 | disposition home health service (06) ==
LOC: 2NENU 17:16 → EMEROOARM 17:16 → SUATTDRO 19:54 → 2NENU 21:04
PROVIDERS: ADMIT Family Medicine; ATTEND Internal Medicine

== ENCOUNTER 2021-03-21 18:24 | Observation (INO) ==
[2021-03-21 19:31] LABS: Basophils % 0.5 %; Eosinophils # 0.4 K/mcL (0.0-0.6); Eosinophils % 4.7 %; Hematocrit 33.6 % (35.3-44.9); Hemoglobin 10.4 g/dL (11.5-15.4); Immature Granulocytes % 0.4 % (0-4); Lymphocytes # 1.5 K/mcL (0.6-4.6); Lymphocytes % 17.3 %; Mean Corpuscular Hemoglobin 27.6 pg (28.0-33.3); Mean Corpuscular Volume 89.1 fL (83.0-100.0); Mean Platelet Volume 10.2 fL (9.4-12.4); Monocytes # 0.6 K/mcL (0.0-1.3); Monocytes % 6.6 %; Neutrophils # 5.9 K/mcL (1.6-8.9); Platelet Count 219 K/mcL (140-400); Red Blood Count 3.77 M/mcL (3.82-4.97); Red Cell Distribution Width 15.9 % (11.5-14.5); Segmented Neutrophils % 70.5 %; White Blood Count 8.4 K/mcL (4.3-11.1)
[2021-03-21 19:38] LABS: INR 1.1; Prothrombin Time 13.1 Seconds (9.4-12.1)
[2021-03-21 19:40] LABS: Activated Partial Thrombo Time 27.9 Seconds (26.0-36.0)
[2021-03-21 19:56] LABS: Alanine Aminotransferase 19 Units/L (7-52); Albumin 3.6 g/dL (3.5-5.7); Albumin/Globulin Ratio 1.2 (1.1-2.2); Alkaline Phosphatase 60 Units/L (34-104); Aspartate Amino Transferase 14 Units/L (13-39); BUN/Creatinine Ratio 17 (6-26); Bilirubin,Direct 0.1 mg/dL (0.0-0.2); Bilirubin,Indirect 0.2 mg/dL (0.0-1.0); Bilirubin,Total 0.3 mg/dL (0.3-1.0); Blood Urea Nitrogen 27 mg/dL (8-23); Carbon Dioxide 20 mEq/L (23-29); Chloride 105 mEq/L (98-107); Glucose 192 mg/dL (70-105); Osmolality,Calculated 298 (280-300); Potassium 4.1 mEq/L (3.5-5.1); Sodium 139 mEq/L (136-145); Total Protein 6.6 g/dL (6.4-8.9); Troponin I < 0.03 ng/mL (< 0.04); eGFR For African Americans 39 (> 60); eGFR For Non-African Americans 32 (> 60)
[2021-03-21] MEDS ORDERED: Morphine Sulfate 2 MG/ML SYRINGE IVP ONE (20:57)
[2021-03-21] MEDS ORDERED: Aspirin 81 MG TAB.CHEW PO ONE (22:02)
[2021-03-21] MEDS ORDERED: Ondansetron 4 MG/2 ML VIAL IVP PRN (23:44)
[2021-03-21] MEDS ORDERED: Naloxone 0.4 MG/ML INJ IVP PRN (23:44)
[2021-03-22 01:52] LABS: Hemoglobin 10.7 g/dL (11.5-15.4); Mean Corpuscular HGB Conc 30.6 g/dL (31.6-35.5); Mean Corpuscular Hemoglobin 27.3 pg (28.0-33.3); Mean Corpuscular Volume 89.3 fL (83.0-100.0); Mean Platelet Volume 10.2 fL (9.4-12.4); Platelet Count 238 K/mcL (140-400); Red Blood Count 3.92 M/mcL (3.82-4.97); Red Cell Distribution Width 16.1 % (11.5-14.5); White Blood Count 9.3 K/mcL (4.3-11.1)
[2021-03-22] MEDS ORDERED: Perflutren Lipid Microsphere 1.3 ML in 0.9 % Sodium Chloride 8.7 ML IVP PRN (01:52)
[2021-03-22] MEDS ORDERED: Nitroglycerin 0.4 MG TAB.SUBL SL PRN (01:57)
[2021-03-22 01:59] LABS: Potassium 4.3 mEq/L (3.5-5.1)
[2021-03-22] MEDS ORDERED: *HR* Dextrose 50 % in Water (Vial) 50 ML VIAL IVP PRN (02:04)
[2021-03-22] MEDS ORDERED: Dextrose Gel 15 GM/37.5 ML TUBE PO PRN ×2 (02:04)
[2021-03-22] MEDS ORDERED: D5% in Water 1,000 ML IVC PRN (02:04)
[2021-03-22] MEDS: Insulin LISPRO 300 UNITS/3 ML VIAL SUBQ SCH ×3 (05:29→17:18)
[2021-03-22 07:02] LABS: INR 1.2
[2021-03-22 07:05] LABS: Activated Partial Thrombo Time 27.7 Seconds (26.0-36.0)
[2021-03-22 07:27] LABS: Chol/HDL Ratio 3.2 (0-4.9); Magnesium 1.9 mg/dL (1.6-2.6)
[2021-03-22 07:40] LABS: Folate 5.1 ng/mL (3.0-16.0)
[2021-03-22 07:47] LABS: Estimated Average Glucose 192 mg/dl; Hemoglobin A1C 8.3 %
[2021-03-22] MEDS ORDERED: carvediloL 25 MG TABLET PO SCH (08:00)
[2021-03-22] MEDS ORDERED: DilTIAZem CD (24hr) 120 MG CAP.ER.24H PO SCH (09:00)
[2021-03-22] MEDS: Ranolazine 500 MG TAB.ER.12H PO SCH ×2 (09:06→20:22)
[2021-03-22] MEDS: Aspirin 81 MG TAB.CHEW PO SCH (09:06)
[2021-03-22] MEDS: Gabapentin 100 MG CAPSULE PO SCH ×2 (09:06→20:21)
[2021-03-22] MEDS: *HR* Ticagrelor 90 MG TABLET PO SCH ×2 (09:08→20:21)
[2021-03-22] MEDS: Isosorbide MONOnitrate (24 HR) 60 MG TAB.ER.24H PO SCH (09:08)
[2021-03-22] MEDS ORDERED: Morphine Sulfate 2 MG/ML SYRINGE IVP ONE (22:52)
[2021-03-22] MEDS ORDERED: Aspirin Enteric Coated 81 MG Tablet PO ONE (22:53)
[2021-03-22] MEDS ORDERED: Morphine Sulfate 2 MG/ML SYRINGE ONE (22:53)
[2021-03-22] MEDS ORDERED: Aspirin 325 MG TABLET ONE (22:58)
[2021-03-22] MEDS ORDERED: *HR* LORazepam 2 MG/ML VIAL IVP ONE (23:00)
[2021-03-22] MEDS ORDERED: *HR* LORazepam 2 MG/ML VIAL ONE (23:02)
[2021-03-23 06:01] LABS: Hematocrit 35.3 % (35.3-44.9); Hemoglobin 10.4 g/dL (11.5-15.4); Mean Corpuscular HGB Conc 29.5 g/dL (31.6-35.5); Mean Corpuscular Hemoglobin 26.7 pg (28.0-33.3); Mean Corpuscular Volume 90.7 fL (83.0-100.0); Mean Platelet Volume 10.3 fL (9.4-12.4); Platelet Count 228 K/mcL (140-400); Red Blood Count 3.89 M/mcL (3.82-4.97); Red Cell Distribution Width 16.3 % (11.5-14.5); White Blood Count 9.8 K/mcL (4.3-11.1)
[2021-03-23 06:13] LABS: Calcium 8.8 mg/dL (8.6-10.3); Potassium 4.3 mEq/L (3.5-5.1)
[2021-03-23] MEDS: Aspirin 81 MG TAB.CHEW PO SCH (08:05)
[2021-03-23] MEDS: Gabapentin 100 MG CAPSULE PO SCH (08:06)
[2021-03-23] MEDS: Ranolazine 500 MG TAB.ER.12H PO SCH (08:06)
[2021-03-23] MEDS: Isosorbide MONOnitrate (24 HR) 60 MG TAB.ER.24H PO SCH (08:06)
[2021-03-23] MEDS: *HR* Ticagrelor 90 MG TABLET PO SCH (08:13)
[2021-03-23] MEDS: Insulin LISPRO 300 UNITS/3 ML VIAL SUBQ SCH ×2 (08:14→11:28)
[2021-03-23] MEDS ORDERED: Acetaminophen IV 1,000 MG/100 ML BAG IVPB ONE (15:11)
[2021-03-23 15:23] VITALS: BP 111/74
[2021-03-23] MEDS ORDERED: Insulin LISPRO 300 UNITS/3 ML VIAL SUBQ SCH (21:00)
== END 2021-03-23 19:25 | disposition home or self-care (01) ==
LOC: 3BNU 18:24 → EMEROOARM 18:24 → SUATTDRO 22:10 → 3BNU 23:22
PROVIDERS: ADMIT Internal Medicine; ATTEND Nurse Practitioner

== ENCOUNTER 2021-05-06 01:01 | Observation (INO) ==
[2021-05-06 01:45] LABS: Basophils % 0.3 %; Eosinophils # 0.4 K/mcL (0.0-0.6); Eosinophils % 3.2 %; Hematocrit 34.8 % (35.3-44.9); Immature Granulocytes % 0.5 % (0-4); Lymphocytes # 1.8 K/mcL (0.6-4.6); Lymphocytes % 13.7 %; Mean Corpuscular HGB Conc 31.6 g/dL (31.6-35.5); Mean Corpuscular Hemoglobin 27.9 pg (28.0-33.3); Mean Corpuscular Volume 88.3 fL (83.0-100.0); Mean Platelet Volume 10.8 fL (9.4-12.4); Monocytes # 0.8 K/mcL (0.0-1.3); Monocytes % 6.5 %; Neutrophils # 9.7 K/mcL (1.6-8.9); Platelet Count 220 K/mcL (140-400); Red Blood Count 3.94 M/mcL (3.82-4.97); Red Cell Distribution Width 17.1 % (11.5-14.5); Segmented Neutrophils % 75.8 %; White Blood Count 12.8 K/mcL (4.3-11.1)
[2021-05-06] MEDS ORDERED: Aspirin 325 MG TABLET PO ONE (01:51)
[2021-05-06 02:05] LABS: BUN/Creatinine Ratio 21 (6-26); Blood Urea Nitrogen 39 mg/dL (8-23); Calcium 9.5 mg/dL (8.6-10.3); Carbon Dioxide 26 mEq/L (23-29); Chloride 97 mEq/L (98-107); Glucose 319 mg/dL (70-105); Osmolality,Calculated 302 (280-300); Sodium 135 mEq/L (136-145); Troponin I < 0.03 ng/mL (< 0.04); eGFR For African Americans 33 (> 60); eGFR For Non-African Americans 27 (> 60)
[2021-05-06] MEDS: Nitroglycerin 0.4 MG TAB.SUBL SL PRN ×3 (03:23→03:34)
[2021-05-06 05:23] LABS: Adenovirus Not Detected (Not Detect); Bordetella Pertussis Not Detected (Not Detect); Chlamydophila pneumoniae Not Detected (Not Detect); Coronavirus 229E Not Detected (Not Detect); Coronavirus HKU1 Not Detected (Not Detect); Coronavirus NL63 Not Detected (Not Detect); Coronavirus OC43 Not Detected (Not Detect); Human Metapneumovirus Not Detected (Not Detect); Human Rhinovirus/Enterovirus DETECTED (Not Detect); Influenza A Subtype 2009 H1 Not Detected (Not Detect); Influenza B Not Detected (Not Detect); Mycoplasma pneumoniae Not Detected (Not Detect); Parainfluenza Virus 1 Not Detected (Not Detect); Parainfluenza Virus 2 Not Detected (Not Detect); Parainfluenza Virus 3 Not Detected (Not Detect); Parainfluenza Virus 4 Not Detected (Not Detect); Respiratory Syncytial Virus Not Detected (Not Detect); SARS-CoV-2 Not Detected (Not Detect)
[2021-05-06] MEDS ORDERED: Morphine Sulfate 2 MG/ML SYRINGE IVP PRN (05:30)
[2021-05-06] MEDS ORDERED: Naloxone 0.4 MG/ML INJ IVP PRN (05:36)
[2021-05-06] MEDS ORDERED: Ondansetron 4 MG/2 ML VIAL IVP PRN (05:36)
[2021-05-06] MEDS ORDERED: Dextrose Gel 15 GM/37.5 ML TUBE PO PRN ×2 (05:37)
[2021-05-06] MEDS ORDERED: *HR* Dextrose 50 % in Water (Vial) 50 ML VIAL IVP PRN (05:37)
[2021-05-06] MEDS ORDERED: D5% in Water 1,000 ML IVC PRN (05:37)
[2021-05-06] MEDS ORDERED: Acetaminophen 325 MG TABLET PO PRN (06:00)
[2021-05-06] MEDS ORDERED: Insulin LISPRO 300 UNITS/3 ML VIAL SUBQ SCH (06:00)
[2021-05-06] MEDS ORDERED: *HR* Heparin 5,000 UNIT/ML VIAL SQ SCH (06:15)
[2021-05-06 07:30] VITALS: TEMP 98.4
[2021-05-06 08:44] VITALS: BP 139/67; PULSE 78; O2SAT 96
[2021-05-06] MEDS ORDERED: Aspirin Enteric Coated 81 MG Tablet PO SCH (09:00)
[2021-05-06] MEDS ORDERED: *HR* Ticagrelor 90 MG TABLET PO SCH (09:00)
== END 2021-05-06 11:15 | disposition home or self-care (01) ==
LOC: CDU 01:01 → EMEROOARM 01:01 → SUATTDRO 05:04 → CDU 06:12
PROVIDERS: ADMIT Student in an Organized Health Care Education/Training Program; ATTEND Family Medicine

== ENCOUNTER 2021-05-26 16:21 | Inpatient (IN) ==
[2021-05-26] MEDS ORDERED: Benzonatate 100 MG CAPSULE PO ONE (16:44)
[2021-05-26] MEDS ORDERED: Acetaminophen 325 MG TABLET PO ONE (16:44)
[2021-05-26] MEDS ORDERED: Ondansetron 4 MG/2 ML VIAL IVP ONE (16:44)
[2021-05-26] MEDS ORDERED: Ketorolac 15 MG/ML VIAL IVP ONE (16:45)
[2021-05-26 17:09] LABS: Basophils % 0.4 %; Eosinophils # 0.4 K/mcL (0.0-0.6); Eosinophils % 5.5 %; Hematocrit 32.3 % (35.3-44.9); Hemoglobin 10.1 g/dL (11.5-15.4); Immature Granulocytes % 0.5 % (0-4); Lymphocytes # 1.1 K/mcL (0.6-4.6); Lymphocytes % 13.9 %; Mean Corpuscular HGB Conc 31.3 g/dL (31.6-35.5); Mean Corpuscular Hemoglobin 27.8 pg (28.0-33.3); Mean Platelet Volume 10.8 fL (9.4-12.4); Monocytes # 0.7 K/mcL (0.0-1.3); Monocytes % 8.3 %; Neutrophils # 5.7 K/mcL (1.6-8.9); Platelet Count 192 K/mcL (140-400); Red Blood Count 3.63 M/mcL (3.82-4.97); Red Cell Distribution Width 17.6 % (11.5-14.5); Segmented Neutrophils % 71.4 %
[2021-05-26 17:19] LABS: INR 1.1; Prothrombin Time 13.2 Seconds (9.4-12.1)
[2021-05-26 17:21] LABS: Activated Partial Thrombo Time 30.7 Seconds (26.0-36.0)
[2021-05-26 17:30] LABS: BUN/Creatinine Ratio 20 (6-26); Blood Urea Nitrogen 30 mg/dL (8-23); C-Reactive Protein 38 mg/L (Less than 10); Calcium 8.8 mg/dL (8.6-10.3); Carbon Dioxide 25 mEq/L (23-29); Chloride 101 mEq/L (98-107); Glucose 234 mg/dL (70-105); Lactate Dehydrogenase 189 Units/L (140-271); Magnesium 1.6 mg/dL (1.6-2.6); Osmolality,Calculated 290 (280-300); Phosphorous 2.8 mg/dL (2.7-4.5); Potassium 4.1 mEq/L (3.5-5.1); Sodium 133 mEq/L (136-145); Troponin I < 0.03 ng/mL (< 0.04); eGFR For African Americans 43 (> 60); eGFR For Non-African Americans 35 (> 60)
[2021-05-26 17:43] LABS: Ferritin 48 ng/mL (10-120)
[2021-05-26 18:18] LABS: Adenovirus Not Detected (Not Detect); Bordetella Pertussis Not Detected (Not Detect); Chlamydophila pneumoniae Not Detected (Not Detect); Coronavirus 229E Not Detected (Not Detect); Coronavirus HKU1 Not Detected (Not Detect); Coronavirus NL63 Not Detected (Not Detect); Coronavirus OC43 Not Detected (Not Detect); Human Metapneumovirus Not Detected (Not Detect); Human Rhinovirus/Enterovirus Not Detected (Not Detect); Influenza A Subtype 2009 H1 Not Detected (Not Detect); Influenza B Not Detected (Not Detect); Mycoplasma pneumoniae Not Detected (Not Detect); Parainfluenza Virus 1 Not Detected (Not Detect); Parainfluenza Virus 2 Not Detected (Not Detect); Parainfluenza Virus 3 Not Detected (Not Detect); Parainfluenza Virus 4 Not Detected (Not Detect); Respiratory Syncytial Virus DETECTED (Not Detect); SARS-CoV-2 Not Detected (Not Detect)
[2021-05-26] MEDS ORDERED: Azithromycin 250 MG TABLET PO ONE (19:06)
[2021-05-26] MEDS ORDERED: Ipratropium/Albuterol Neb 3 ML IH ONE (19:06)
[2021-05-26] MEDS ORDERED: Albuterol 2.5 MG/3 ML NEBULIZER IH PRN (20:55)
[2021-05-26] MEDS ORDERED: Benzonatate 100 MG CAPSULE PO PRN (20:55)
[2021-05-26] MEDS ORDERED: Menthol 1 EACH LOZENGE PO PRN (20:56)
[2021-05-26] MEDS ORDERED: *HR* Dextrose 50 % in Water (Vial) 50 ML VIAL IVP PRN (21:06)
[2021-05-26] MEDS ORDERED: Naloxone 0.4 MG/ML INJ IVP PRN (21:06)
[2021-05-26] MEDS ORDERED: Ondansetron 4 MG/2 ML VIAL IVP PRN (21:06)
[2021-05-26] MEDS ORDERED: Dextrose Gel 15 GM/37.5 ML TUBE PO PRN ×2 (21:06)
[2021-05-26] MEDS ORDERED: D5% in Water 1,000 ML IVC PRN (21:06)
[2021-05-26] MEDS ORDERED: Melatonin 3 MG TABLET PO PRN (21:06)
[2021-05-26] MEDS: *HR* Ticagrelor 90 MG TABLET PO SCH (22:10)
[2021-05-26] MEDS: Ranolazine 500 MG TAB.ER.12H PO SCH (22:11)
[2021-05-26] MEDS: Gabapentin 100 MG CAPSULE PO SCH (22:11)
[2021-05-27 01:32] LABS: Basophils % 0.1 %; Eosinophils % 0.3 %; Hematocrit 32.4 % (35.3-44.9); Hemoglobin 10.2 g/dL (11.5-15.4); Immature Granulocytes % 0.8 % (0-4); Lymphocytes # 0.7 K/mcL (0.6-4.6); Lymphocytes % 9.7 %; Mean Corpuscular HGB Conc 31.5 g/dL (31.6-35.5); Mean Corpuscular Hemoglobin 28.7 pg (28.0-33.3); Mean Corpuscular Volume 91.3 fL (83.0-100.0); Mean Platelet Volume 11.6 fL (9.4-12.4); Monocytes # 0.1 K/mcL (0.0-1.3); Platelet Count 199 K/mcL (140-400); Red Blood Count 3.55 M/mcL (3.82-4.97); Segmented Neutrophils % 88.1 %; White Blood Count 7.1 K/mcL (4.3-11.1)
[2021-05-27 01:34] LABS: Neutrophils # 6.3 K/mcL (1.6-8.9)
[2021-05-27 01:53] LABS: Calcium 8.6 mg/dL (8.6-10.3); Potassium 4.2 mEq/L (3.5-5.1)
[2021-05-27 01:55] LABS: Anisocytosis 1+ (Not Present); Platelet Estimate Normal (Normal)
[2021-05-27] MEDS: Albuterol 2.5 MG/3 ML NEBULIZER IH SCH ×6 (04:23→19:45)
[2021-05-27] MEDS: Insulin LISPRO 300 UNITS/3 ML VIAL SUBQ SCH ×4 (08:10→20:58)
[2021-05-27] MEDS: Isosorbide MONOnitrate (24 HR) 60 MG TAB.ER.24H PO SCH (08:11)
[2021-05-27] MEDS: predniSONE 20 MG TABLET PO SCH (08:11)
[2021-05-27] MEDS: Gabapentin 100 MG CAPSULE PO SCH ×2 (08:11→20:57)
[2021-05-27] MEDS: Azithromycin 250 MG TABLET PO SCH (08:11)
[2021-05-27] MEDS: Aspirin 81 MG TAB.CHEW PO SCH (08:11)
[2021-05-27] MEDS: Ranolazine 500 MG TAB.ER.12H PO SCH ×2 (08:11→20:57)
[2021-05-27] MEDS: *HR* Ticagrelor 90 MG TABLET PO SCH ×2 (08:12→20:56)
[2021-05-27] MEDS: carvediloL 25 MG TABLET PO SCH ×2 (08:12→17:45)
[2021-05-27] MEDS ORDERED: tiZANidine 4 MG TABLET PO PRN (12:31)
[2021-05-27] MEDS: Insulin DETEMIR 100 UNIT/ML X5UNITS SUBQ SCH (20:58)
[2021-05-28] MEDS: Albuterol 2.5 MG/3 ML NEBULIZER IH SCH ×6 (00:49→20:10)
[2021-05-28 01:13] LABS: mecA Methicillin-Resist Gene DETECTED (Not Detect)
[2021-05-28 01:14] LABS: Acinetobacter baumannii by PCR Not Detected (Not Detect); Candida albicans by PCR Not Detected (Not Detect); Candida glabrata by PCR Not Detected (Not Detect); Candida krusei by PCR Not Detected (Not Detect); Candida parapsilosis by PCR Not Detected (Not Detect); Candida tropicalis by PCR Not Detected (Not Detect); Enterobacter cloacae Cmplx PCR Not Detected (Not Detect); Enterobacteriaceae by PCR Not Detected (Not Detect); Enterococcus by PCR Not Detected (Not Detect); Escherichia coli by PCR Not Detected (Not Detect); Klebsiella oxytoca by PCR Not Detected (Not Detect); Klebsiella pneumoniae by PCR Not Detected (Not Detect); Proteus by PCR Not Detected (Not Detect); Pseudomonas aeruginosa by PCR Not Detected (Not Detect); Serratia marcescens by PCR Not Detected (Not Detect); Staphylococcus aureus by PCR Not Detected (Not Detect); Staphylococcus by PCR DETECTED (Not Detect); Streptococcus agalactiae(B)PCR Not Detected (Not Detect); Streptococcus by PCR Not Detected (Not Detect); Streptococcus pneumoniae PCR Not Detected (Not Detect); Streptococcus pyogenes (A) PCR Not Detected (Not Detect)
[2021-05-28 02:56] LABS: Basophils % 0.1 %; Hematocrit 33.3 % (35.3-44.9); Hemoglobin 10.4 g/dL (11.5-15.4); Immature Granulocytes % 0.7 % (0-4); Lymphocytes # 1.1 K/mcL (0.6-4.6); Lymphocytes % 6.7 %; Mean Corpuscular HGB Conc 31.2 g/dL (31.6-35.5); Mean Corpuscular Hemoglobin 28.7 pg (28.0-33.3); Mean Platelet Volume 10.7 fL (9.4-12.4); Monocytes # 0.8 K/mcL (0.0-1.3); Monocytes % 5.1 %; Neutrophils # 14.3 K/mcL (1.6-8.9); Platelet Count 254 K/mcL (140-400); Red Blood Count 3.62 M/mcL (3.82-4.97); Red Cell Distribution Width 18.4 % (11.5-14.5); Segmented Neutrophils % 87.4 %; White Blood Count 16.4 K/mcL (4.3-11.1)
[2021-05-28 03:16] LABS: Calcium 9.1 mg/dL (8.6-10.3); Potassium 4.5 mEq/L (3.5-5.1)
[2021-05-28] MEDS: Isosorbide MONOnitrate (24 HR) 60 MG TAB.ER.24H PO SCH (08:11)
[2021-05-28] MEDS: carvediloL 25 MG TABLET PO SCH ×2 (08:11→16:49)
[2021-05-28] MEDS: Ranolazine 500 MG TAB.ER.12H PO SCH ×2 (08:11→21:34)
[2021-05-28] MEDS: predniSONE 20 MG TABLET PO SCH (08:11)
[2021-05-28] MEDS: Gabapentin 100 MG CAPSULE PO SCH ×2 (08:12→21:34)
[2021-05-28] MEDS: *HR* Ticagrelor 90 MG TABLET PO SCH ×2 (08:12→21:35)
[2021-05-28] MEDS: Aspirin 81 MG TAB.CHEW PO SCH (08:12)
[2021-05-28] MEDS: Insulin LISPRO 300 UNITS/3 ML VIAL SUBQ SCH ×4 (08:13→21:36)
[2021-05-28] MEDS: Azithromycin 250 MG TABLET PO SCH (08:13)
[2021-05-28] MEDS: Insulin DETEMIR 100 UNIT/ML X5UNITS SUBQ SCH ×2 (08:18→21:37)
[2021-05-28] MEDS ORDERED: hydroCHLOROthiazide 25 MG TABLET PO SCH (09:00)
[2021-05-28] MEDS ORDERED: Vancomycin 1,500 MG/265 ML IV.SOLN IVPB ONE (09:00)
[2021-05-28] MEDS: 0.9 % Sodium Chloride 1,000 ML IVC SCH (11:49)
[2021-05-28] MEDS: *HR* Heparin 5,000 UNIT/ML VIAL SQ SCH ×2 (16:49→21:35)
[2021-05-28] MEDS: Acetaminophen 325 MG TABLET PO PRN (21:35)
[2021-05-29] MEDS: Albuterol 2.5 MG/3 ML NEBULIZER IH SCH ×7 (00:06→23:41)
[2021-05-29 02:27] LABS: Hematocrit 30.9 % (35.3-44.9); Hemoglobin 9.7 g/dL (11.5-15.4); Mean Corpuscular HGB Conc 31.4 g/dL (31.6-35.5); Mean Corpuscular Hemoglobin 28.5 pg (28.0-33.3); Mean Corpuscular Volume 90.9 fL (83.0-100.0); Mean Platelet Volume 11.1 fL (9.4-12.4); Platelet Count 233 K/mcL (140-400); Red Cell Distribution Width 18.4 % (11.5-14.5); White Blood Count 13.1 K/mcL (4.3-11.1)
[2021-05-29 02:45] LABS: Albumin 3.4 g/dL (3.5-5.7); Albumin/Globulin Ratio 1.1 (1.1-2.2); Bilirubin,Total 0.3 mg/dL (0.3-1.0); Calcium 8.6 mg/dL (8.6-10.3); Globulin 3.2 g/dL (2.4-3.5); Potassium 4.5 mEq/L (3.5-5.1); Total Protein 6.6 g/dL (6.4-8.9)
[2021-05-29] MEDS: 0.9 % Sodium Chloride 1,000 ML IVC SCH ×2 (03:08→15:14)
[2021-05-29] MEDS: *HR* Heparin 5,000 UNIT/ML VIAL SQ SCH ×3 (05:08→20:37)
[2021-05-29] MEDS: Insulin LISPRO 300 UNITS/3 ML VIAL SUBQ SCH ×4 (07:57→20:39)
[2021-05-29] MEDS: Isosorbide MONOnitrate (24 HR) 60 MG TAB.ER.24H PO SCH (07:57)
[2021-05-29] MEDS: Ranolazine 500 MG TAB.ER.12H PO SCH ×2 (07:58→20:36)
[2021-05-29] MEDS: carvediloL 25 MG TABLET PO SCH ×2 (07:58→16:47)
[2021-05-29] MEDS: Gabapentin 100 MG CAPSULE PO SCH ×2 (07:58→20:36)
[2021-05-29] MEDS: Azithromycin 250 MG TABLET PO SCH (07:58)
[2021-05-29] MEDS: predniSONE 20 MG TABLET PO SCH (07:58)
[2021-05-29] MEDS: *HR* Ticagrelor 90 MG TABLET PO SCH ×2 (07:58→20:36)
[2021-05-29] MEDS: Aspirin 81 MG TAB.CHEW PO SCH (07:58)
[2021-05-29] MEDS: Insulin DETEMIR 100 UNIT/ML X5UNITS SUBQ SCH ×2 (08:01→20:39)
[2021-05-29] MEDS ORDERED: Vancomycin 1,250 MG/262.5 ML IV.SOLN IVPB ONE (11:00)
[2021-05-30] MEDS: MethylPREDNISolone 40 MG/ML VIAL IVP SCH ×3 (00:22→17:06)
[2021-05-30] MEDS: Albuterol 2.5 MG/3 ML NEBULIZER IH SCH ×5 (05:08→20:36)
[2021-05-30] MEDS: *HR* Heparin 5,000 UNIT/ML VIAL SQ SCH ×3 (05:22→21:39)
[2021-05-30 07:13] LABS: Hematocrit 32.2 % (35.3-44.9); Hemoglobin 10.3 g/dL (11.5-15.4); Mean Corpuscular Hemoglobin 29.4 pg (28.0-33.3); Mean Platelet Volume 10.5 fL (9.4-12.4); Platelet Count 218 K/mcL (140-400); White Blood Count 11.1 K/mcL (4.3-11.1)
[2021-05-30 08:05] LABS: Albumin 3.7 g/dL (3.5-5.7); Albumin/Globulin Ratio 1.2 (1.1-2.2); Bilirubin,Total 0.3 mg/dL (0.3-1.0); Calcium 8.5 mg/dL (8.6-10.3); Globulin 3.1 g/dL (2.4-3.5); Potassium 5.3 mEq/L (3.5-5.1); Total Protein 6.8 g/dL (6.4-8.9)
[2021-05-30] MEDS: Gabapentin 100 MG CAPSULE PO SCH ×2 (09:38→21:35)
[2021-05-30] MEDS: Isosorbide MONOnitrate (24 HR) 60 MG TAB.ER.24H PO SCH (09:38)
[2021-05-30] MEDS: Aspirin 81 MG TAB.CHEW PO SCH (09:38)
[2021-05-30] MEDS: Ranolazine 500 MG TAB.ER.12H PO SCH ×2 (09:38→21:34)
[2021-05-30] MEDS: Insulin LISPRO 300 UNITS/3 ML VIAL SUBQ SCH ×4 (09:39→21:37)
[2021-05-30] MEDS: carvediloL 25 MG TABLET PO SCH ×2 (09:39→17:06)
[2021-05-30] MEDS: *HR* Ticagrelor 90 MG TABLET PO SCH ×2 (09:39→21:35)
[2021-05-30] MEDS: Insulin DETEMIR 100 UNIT/ML X5UNITS SUBQ SCH ×2 (09:46→21:39)
[2021-05-31] MEDS: MethylPREDNISolone 40 MG/ML VIAL IVP SCH ×3 (00:07→18:48)
[2021-05-31] MEDS ORDERED: Morphine Sulfate 2 MG/ML SYRINGE IVP ONE (00:20)
[2021-05-31] MEDS: Albuterol 2.5 MG/3 ML NEBULIZER IH SCH ×7 (00:24→22:58)
[2021-05-31 00:54] LABS: Mean Corpuscular HGB Conc 31.3 g/dL (31.6-35.5); Mean Corpuscular Hemoglobin 28.1 pg (28.0-33.3); Mean Corpuscular Volume 89.9 fL (83.0-100.0); Platelet Count 240 K/mcL (140-400); Red Blood Count 3.56 M/mcL (3.82-4.97); Red Cell Distribution Width 17.7 % (11.5-14.5); White Blood Count 14.7 K/mcL (4.3-11.1)
[2021-05-31 01:11] LABS: Albumin 3.6 g/dL (3.5-5.7); Albumin/Globulin Ratio 1.1 (1.1-2.2); Bilirubin,Total 0.3 mg/dL (0.3-1.0); Calcium 8.9 mg/dL (8.6-10.3); Globulin 3.3 g/dL (2.4-3.5); Total Protein 6.9 g/dL (6.4-8.9)
[2021-05-31] MEDS: *HR* Heparin 5,000 UNIT/ML VIAL SQ SCH ×3 (05:39→20:12)
[2021-05-31] MEDS: carvediloL 25 MG TABLET PO SCH ×2 (09:01→17:05)
[2021-05-31] MEDS: Isosorbide MONOnitrate (24 HR) 60 MG TAB.ER.24H PO SCH (09:02)
[2021-05-31] MEDS: Gabapentin 100 MG CAPSULE PO SCH ×2 (09:02→20:10)
[2021-05-31] MEDS: Aspirin 81 MG TAB.CHEW PO SCH (09:02)
[2021-05-31] MEDS: *HR* Ticagrelor 90 MG TABLET PO SCH ×2 (09:02→20:11)
[2021-05-31] MEDS: Ranolazine 500 MG TAB.ER.12H PO SCH ×2 (09:03→20:10)
[2021-05-31] MEDS: Insulin LISPRO 300 UNITS/3 ML VIAL SUBQ SCH ×4 (09:03→20:11)
[2021-05-31] MEDS: Insulin DETEMIR 100 UNIT/ML X5UNITS SUBQ SCH ×2 (09:18→20:12)
[2021-05-31] MEDS ORDERED: Insulin LISPRO 300 UNITS/3 ML VIAL SUBQ ONE (15:18)
[2021-06-01] MEDS: Albuterol 2.5 MG/3 ML NEBULIZER IH SCH ×5 (04:38→20:13)
[2021-06-01] MEDS: *HR* Heparin 5,000 UNIT/ML VIAL SQ SCH ×3 (05:12→21:56)
[2021-06-01] MEDS: MethylPREDNISolone 40 MG/ML VIAL IVP SCH ×2 (05:12→18:03)
[2021-06-01 07:37] LABS: Hematocrit 33.1 % (35.3-44.9); Hemoglobin 10.2 g/dL (11.5-15.4); Mean Corpuscular HGB Conc 30.8 g/dL (31.6-35.5); Mean Corpuscular Hemoglobin 28.2 pg (28.0-33.3); Mean Corpuscular Volume 91.4 fL (83.0-100.0); Mean Platelet Volume 11.4 fL (9.4-12.4); Platelet Count 279 K/mcL (140-400); Red Blood Count 3.62 M/mcL (3.82-4.97); White Blood Count 19.1 K/mcL (4.3-11.1)
[2021-06-01 08:04] LABS: Albumin 3.8 g/dL (3.5-5.7); Albumin/Globulin Ratio 1.3 (1.1-2.2); Bilirubin,Total 0.4 mg/dL (0.3-1.0); Calcium 9.1 mg/dL (8.6-10.3); Potassium 4.8 mEq/L (3.5-5.1); Total Protein 6.8 g/dL (6.4-8.9)
[2021-06-01] MEDS: Ranolazine 500 MG TAB.ER.12H PO SCH ×2 (08:13→21:36)
[2021-06-01] MEDS: Gabapentin 100 MG CAPSULE PO SCH ×2 (08:13→21:36)
[2021-06-01] MEDS: Isosorbide MONOnitrate (24 HR) 60 MG TAB.ER.24H PO SCH (08:13)
[2021-06-01] MEDS: carvediloL 25 MG TABLET PO SCH ×2 (08:13→17:18)
[2021-06-01] MEDS: Aspirin 81 MG TAB.CHEW PO SCH (08:13)
[2021-06-01] MEDS: *HR* Ticagrelor 90 MG TABLET PO SCH ×2 (08:14→21:36)
[2021-06-01] MEDS: Insulin LISPRO 300 UNITS/3 ML VIAL SUBQ SCH ×4 (08:14→21:44)
[2021-06-01] MEDS: Insulin DETEMIR 100 UNIT/ML X5UNITS SUBQ SCH ×2 (08:25→21:50)
[2021-06-01] MEDS ORDERED: 0.9 % Sodium Chloride 500 ML IVC SCH (18:00)
[2021-06-01] MEDS: Nitroglycerin 0.4 MG TAB.SUBL SL PRN (22:48)
[2021-06-02] MEDS: Albuterol 2.5 MG/3 ML NEBULIZER IH SCH ×7 (00:07→23:38)
[2021-06-02] MEDS: MethylPREDNISolone 40 MG/ML VIAL IVP SCH (04:52)
[2021-06-02] MEDS: *HR* Heparin 5,000 UNIT/ML VIAL SQ SCH ×3 (04:54→20:44)
[2021-06-02 06:50] LABS: Hematocrit 34.7 % (35.3-44.9); Hemoglobin 10.8 g/dL (11.5-15.4); Mean Corpuscular HGB Conc 31.1 g/dL (31.6-35.5); Mean Corpuscular Volume 89.9 fL (83.0-100.0); Platelet Count 307 K/mcL (140-400); Red Blood Count 3.86 M/mcL (3.82-4.97); Red Cell Distribution Width 17.6 % (11.5-14.5); White Blood Count 20.9 K/mcL (4.3-11.1)
[2021-06-02 07:18] LABS: Albumin 3.7 g/dL (3.5-5.7); Albumin/Globulin Ratio 1.2 (1.1-2.2); Bilirubin,Total 0.4 mg/dL (0.3-1.0); Calcium 8.9 mg/dL (8.6-10.3); Potassium 4.8 mEq/L (3.5-5.1); Total Protein 6.7 g/dL (6.4-8.9)
[2021-06-02] MEDS: Aspirin 81 MG TAB.CHEW PO SCH (08:27)
[2021-06-02] MEDS: Isosorbide MONOnitrate (24 HR) 60 MG TAB.ER.24H PO SCH (08:27)
[2021-06-02] MEDS: Ranolazine 500 MG TAB.ER.12H PO SCH ×2 (08:27→20:42)
[2021-06-02] MEDS: Gabapentin 100 MG CAPSULE PO SCH ×2 (08:27→20:42)
[2021-06-02] MEDS: carvediloL 25 MG TABLET PO SCH ×2 (08:27→16:06)
[2021-06-02] MEDS: *HR* Ticagrelor 90 MG TABLET PO SCH ×2 (08:27→20:43)
[2021-06-02] MEDS: Insulin LISPRO 300 UNITS/3 ML VIAL SUBQ SCH ×4 (08:28→20:43)
[2021-06-02] MEDS: Insulin DETEMIR 100 UNIT/ML X5UNITS SUBQ SCH ×2 (08:31→20:44)
[2021-06-02] MEDS: Acetaminophen 325 MG TABLET PO PRN (13:57)
[2021-06-03] MEDS: Albuterol 2.5 MG/3 ML NEBULIZER IH SCH ×5 (03:34→19:38)
[2021-06-03] MEDS: *HR* Heparin 5,000 UNIT/ML VIAL SQ SCH ×3 (05:03→20:39)
[2021-06-03 06:45] LABS: Hematocrit 34.3 % (35.3-44.9); Mean Corpuscular HGB Conc 32.1 g/dL (31.6-35.5); Mean Corpuscular Hemoglobin 28.8 pg (28.0-33.3); Mean Corpuscular Volume 89.8 fL (83.0-100.0); Mean Platelet Volume 10.6 fL (9.4-12.4); Platelet Count 311 K/mcL (140-400); Red Blood Count 3.82 M/mcL (3.82-4.97); Red Cell Distribution Width 17.9 % (11.5-14.5); White Blood Count 20.1 K/mcL (4.3-11.1)
[2021-06-03] MEDS ORDERED: 0.9 % Sodium Chloride 1,000 ML IVC SCH (07:30)
[2021-06-03] MEDS: Isosorbide MONOnitrate (24 HR) 60 MG TAB.ER.24H PO SCH (09:02)
[2021-06-03] MEDS: Aspirin 81 MG TAB.CHEW PO SCH (09:02)
[2021-06-03] MEDS: Ranolazine 500 MG TAB.ER.12H PO SCH ×2 (09:02→20:37)
[2021-06-03] MEDS: predniSONE 20 MG TABLET PO SCH (09:03)
[2021-06-03] MEDS: Gabapentin 100 MG CAPSULE PO SCH ×2 (09:03→20:37)
[2021-06-03] MEDS: carvediloL 25 MG TABLET PO SCH ×2 (09:03→16:41)
[2021-06-03] MEDS: *HR* Ticagrelor 90 MG TABLET PO SCH ×2 (09:03→20:38)
[2021-06-03] MEDS: Insulin LISPRO 300 UNITS/3 ML VIAL SUBQ SCH ×4 (09:07→20:38)
[2021-06-03] MEDS: Insulin DETEMIR 100 UNIT/ML X5UNITS SUBQ SCH ×2 (09:14→20:38)
[2021-06-03] MEDS: Nitroglycerin 0.4 MG TAB.SUBL SL PRN (16:47)
[2021-06-03] MEDS ORDERED: Morphine Sulfate 2 MG/ML SYRINGE IVP ONE (16:52)
[2021-06-04] MEDS: Albuterol 2.5 MG/3 ML NEBULIZER IH SCH ×7 (00:17→23:39)
[2021-06-04] MEDS: *HR* Heparin 5,000 UNIT/ML VIAL SQ SCH ×3 (03:21→20:15)
[2021-06-04 04:55] LABS: Hematocrit 34.9 % (35.3-44.9); Hemoglobin 11.1 g/dL (11.5-15.4); Mean Corpuscular HGB Conc 31.8 g/dL (31.6-35.5); Mean Corpuscular Hemoglobin 28.7 pg (28.0-33.3); Mean Corpuscular Volume 90.2 fL (83.0-100.0); Mean Platelet Volume 10.5 fL (9.4-12.4); Platelet Count 306 K/mcL (140-400); Red Blood Count 3.87 M/mcL (3.82-4.97); White Blood Count 18.3 K/mcL (4.3-11.1)
[2021-06-04 05:08] LABS: Calcium 8.7 mg/dL (8.6-10.3); Potassium 4.6 mEq/L (3.5-5.1)
[2021-06-04] MEDS ORDERED: 0.9 % Sodium Chloride 1,000 ML IVC SCH (08:00)
[2021-06-04] MEDS: predniSONE 20 MG TABLET PO SCH ×2 (09:00→09:54)
[2021-06-04] MEDS: Aspirin 81 MG TAB.CHEW PO SCH (09:55)
[2021-06-04] MEDS: Gabapentin 100 MG CAPSULE PO SCH ×2 (09:56→20:14)
[2021-06-04] MEDS: Ranolazine 500 MG TAB.ER.12H PO SCH ×2 (09:56→20:14)
[2021-06-04] MEDS: *HR* Ticagrelor 90 MG TABLET PO SCH ×2 (09:56→20:14)
[2021-06-04] MEDS: carvediloL 25 MG TABLET PO SCH ×2 (09:56→18:32)
[2021-06-04] MEDS: Isosorbide MONOnitrate (24 HR) 60 MG TAB.ER.24H PO SCH (09:57)
[2021-06-04] MEDS: Insulin LISPRO 300 UNITS/3 ML VIAL SUBQ SCH ×4 (09:58→20:13)
[2021-06-04] MEDS: Insulin DETEMIR 100 UNIT/ML X5UNITS SUBQ SCH ×2 (11:36→20:14)
[2021-06-04 17:16] LABS: Calcium 8.7 mg/dL (8.6-10.3); Potassium 4.8 mEq/L (3.5-5.1)
[2021-06-05] MEDS: *HR* Heparin 5,000 UNIT/ML VIAL SQ SCH ×2 (04:43→13:08)
[2021-06-05] MEDS: Albuterol 2.5 MG/3 ML NEBULIZER IH SCH ×4 (04:57→15:28)
[2021-06-05] MEDS: Aspirin 81 MG TAB.CHEW PO SCH (07:47)
[2021-06-05] MEDS: Ranolazine 500 MG TAB.ER.12H PO SCH (07:47)
[2021-06-05] MEDS: *HR* Ticagrelor 90 MG TABLET PO SCH (07:48)
[2021-06-05] MEDS: Isosorbide MONOnitrate (24 HR) 60 MG TAB.ER.24H PO SCH (07:48)
[2021-06-05] MEDS: Gabapentin 100 MG CAPSULE PO SCH (07:48)
[2021-06-05] MEDS: carvediloL 25 MG TABLET PO SCH (07:48)
[2021-06-05] MEDS: predniSONE 20 MG TABLET PO SCH (07:48)
[2021-06-05 08:17] LABS: Basophils # 0.1 K/mcL (0.0-0.2); Basophils % 0.3 %; Eosinophils # 0.1 K/mcL (0.0-0.6); Eosinophils % 0.3 %; Hematocrit 33.5 % (35.3-44.9); Hemoglobin 10.7 g/dL (11.5-15.4); Immature Granulocytes % 2.2 % (0-4); Lymphocytes # 2.2 K/mcL (0.6-4.6); Lymphocytes % 10.8 %; Mean Corpuscular HGB Conc 31.9 g/dL (31.6-35.5); Mean Corpuscular Hemoglobin 28.4 pg (28.0-33.3); Mean Corpuscular Volume 88.9 fL (83.0-100.0); Mean Platelet Volume 10.8 fL (9.4-12.4); Monocytes # 1.1 K/mcL (0.0-1.3); Monocytes % 5.6 %; Neutrophils # 16.6 K/mcL (1.6-8.9); Platelet Count 294 K/mcL (140-400); Red Blood Count 3.77 M/mcL (3.82-4.97); Red Cell Distribution Width 17.6 % (11.5-14.5); Segmented Neutrophils % 80.8 %; White Blood Count 20.5 K/mcL (4.3-11.1)
[2021-06-05 08:37] LABS: Potassium 4.8 mEq/L (3.5-5.1)
[2021-06-05] MEDS: Insulin LISPRO 300 UNITS/3 ML VIAL SUBQ SCH ×2 (10:09→13:06)
[2021-06-05] MEDS: Insulin DETEMIR 100 UNIT/ML X5UNITS SUBQ SCH (10:14)
[2021-06-05 10:59] VITALS: BP 131/76; PULSE 66; TEMP 98.1; O2SAT 92
== END 2021-06-05 18:45 | disposition home health service (06) | DRG 140 ==
LOC: 3BNU 16:21 → EMEROOARM 16:21 → 3BNU 21:18 → SUATTDRO 05-28 12:55 → UNDODISIN 06-04 23:21
PROVIDERS: ADMIT Internal Medicine; ATTEND Nurse Practitioner

== ENCOUNTER 2021-06-13 14:50 | Observation (INO) ==
[2021-06-13 17:27] LABS: Bacteria,Urine Few per hpf (None-Few); Bilirubin,Urine Negative (Negative); Blood,Urine Moderate (Negative); Clarity,Urine Turbid (Clear); Color,Urine Yellow (Yellow); Glucose,Urine (UA) 100 mg/dL (Normal); Ketones,Urine Negative (Negative); Leukocyte Esterase,Urine Large (Negative); Mucus,Urine Few per lpf (None-Few); Nitrite,Urine Positive (Negative); PH,Urine 5.5 pH Units (5.0-8.0); Protein,Urine 50 mg/dL (Neg-Trace); RBC,Urine 15-30 per hpf (0-3); Specific Gravity,Urine 1.016 (1.010-1.025); Squamous Epithelial Cell,Urine Few per hpf (None-Few); Urobilinogen,Urine Normal (Normal); WBC,Urine TNTC per hpf (0-3)
[2021-06-13] MEDS ORDERED: 0.9 % Sodium Chloride 1,000 ML IV ONE (19:14)
[2021-06-13] MEDS ORDERED: cefTRIAXone 1,000 MG in 0.9 % Sodium Chloride Mini Bag 100 ML IVPB ONE (19:14)
[2021-06-13] MEDS ORDERED: Morphine Sulfate 2 MG/ML SYRINGE IVP ONE (19:26)
[2021-06-13] MEDS ORDERED: Aspirin 325 MG TABLET PO ONE (19:26)
[2021-06-13] MEDS ORDERED: Ondansetron 4 MG/2 ML VIAL IVP PRN ×2 (19:26→22:54)
[2021-06-13 19:54] LABS: Basophils % 0.2 %; Eosinophils # 0.1 K/mcL (0.0-0.6); Eosinophils % 0.6 %; Hematocrit 34.9 % (35.3-44.9); Immature Granulocytes % 0.5 % (0-4); Lymphocytes % 6.3 %; Mean Corpuscular HGB Conc 31.5 g/dL (31.6-35.5); Mean Corpuscular Hemoglobin 28.7 pg (28.0-33.3); Mean Corpuscular Volume 91.1 fL (83.0-100.0); Mean Platelet Volume 10.8 fL (9.4-12.4); Monocytes % 6.4 %; Neutrophils # 13.5 K/mcL (1.6-8.9); Platelet Count 184 K/mcL (140-400); Red Blood Count 3.83 M/mcL (3.82-4.97); Red Cell Distribution Width 17.9 % (11.5-14.5); White Blood Count 15.7 K/mcL (4.3-11.1)
[2021-06-13 20:50] LABS: Albumin 3.7 g/dL (3.5-5.7); Albumin/Globulin Ratio 1.1 (1.1-2.2); Bilirubin,Direct 0.2 mg/dL (0.0-0.2); Bilirubin,Indirect 0.5 mg/dL (0.0-1.0); Bilirubin,Total 0.7 mg/dL (0.3-1.0); Globulin 3.5 g/dL (2.4-3.5); Total Protein 7.2 g/dL (6.4-8.9); Troponin I 0.08 ng/mL (< 0.04)
[2021-06-13] MEDS ORDERED: Nitroglycerin 0.4 MG TAB.SUBL SL PRN (21:00)
[2021-06-13] MEDS ORDERED: Naloxone 0.4 MG/ML INJ IVP PRN (22:54)
[2021-06-13] MEDS ORDERED: Ipratropium/Albuterol Neb 3 ML IH PRN (22:56)
[2021-06-13] MEDS ORDERED: Dextrose Gel 15 GM/37.5 ML TUBE PO PRN ×2 (22:58)
[2021-06-13] MEDS ORDERED: *HR* Dextrose 50 % in Water (Syg) 50 ML SYRINGE IVP PRN (22:58)
[2021-06-13] MEDS ORDERED: D5% in Water 1,000 ML IVC PRN (22:58)
[2021-06-13] MEDS: Insulin LISPRO 300 UNITS/3 ML VIAL SUBQ SCH (23:52)
[2021-06-14 01:03] LABS: Basophils % 0.2 %; Eosinophils # 0.1 K/mcL (0.0-0.6); Eosinophils % 1.1 %; Hematocrit 31.4 % (35.3-44.9); Hemoglobin 9.7 g/dL (11.5-15.4); Immature Granulocytes % 0.3 % (0-4); Lymphocytes # 1.2 K/mcL (0.6-4.6); Lymphocytes % 11.8 %; Mean Corpuscular HGB Conc 30.9 g/dL (31.6-35.5); Mean Corpuscular Hemoglobin 28.9 pg (28.0-33.3); Mean Corpuscular Volume 93.5 fL (83.0-100.0); Mean Platelet Volume 10.5 fL (9.4-12.4); Monocytes # 0.7 K/mcL (0.0-1.3); Monocytes % 6.8 %; Neutrophils # 8.1 K/mcL (1.6-8.9); Platelet Count 139 K/mcL (140-400); Red Blood Count 3.36 M/mcL (3.82-4.97); Segmented Neutrophils % 79.8 %; White Blood Count 10.2 K/mcL (4.3-11.1)
[2021-06-14 01:22] LABS: Chol/HDL Ratio 2.5 (0-4.9)
[2021-06-14 01:39] LABS: Estimated Average Glucose 266 mg/dl; Hemoglobin A1C 10.9 %
[2021-06-14 01:47] LABS: Calcium 7.9 mg/dL (8.6-10.3); Magnesium 1.8 mg/dL (1.6-2.6); Potassium 4.3 mEq/L (3.5-5.1)
[2021-06-14] MEDS: cefTRIAXone 1,000 MG in 0.9 % Sodium Chloride Mini Bag 100 ML IVPB SCH (08:20)
[2021-06-14] MEDS: Insulin LISPRO 300 UNITS/3 ML VIAL SUBQ SCH ×3 (08:20→18:13)
[2021-06-14] MEDS: Aspirin 81 MG TAB.CHEW PO SCH (10:39)
[2021-06-14] MEDS: Isosorbide MONOnitrate (24 HR) 60 MG TAB.ER.24H PO SCH (10:39)
[2021-06-14] MEDS: *HR* Ticagrelor 90 MG TABLET PO SCH ×2 (10:43→20:18)
[2021-06-14] MEDS: Ranolazine 500 MG TAB.ER.12H PO SCH ×2 (10:43→20:24)
[2021-06-14] MEDS ORDERED: Perflutren Lipid Microsphere 1.3 ML in 0.9 % Sodium Chloride 8.7 ML IVP PRN (10:58)
[2021-06-14] MEDS: carvediloL 25 MG TABLET PO SCH (18:12)
[2021-06-14] MEDS: Insulin DETEMIR 100 UNIT/ML X5UNITS SUBQ SCH (20:24)
[2021-06-14] MEDS: Gabapentin 100 MG CAPSULE PO SCH (20:24)
[2021-06-14] MEDS ORDERED: Morphine Sulfate 2 MG/ML SYRINGE IVP ONE (21:57)
[2021-06-15] MEDS: carvediloL 25 MG TABLET PO SCH ×2 (07:54→17:52)
[2021-06-15] MEDS: Isosorbide MONOnitrate (24 HR) 60 MG TAB.ER.24H PO SCH (07:54)
[2021-06-15] MEDS: Ranolazine 500 MG TAB.ER.12H PO SCH ×2 (07:54→21:24)
[2021-06-15] MEDS: Gabapentin 100 MG CAPSULE PO SCH ×2 (07:54→21:20)
[2021-06-15] MEDS: *HR* Ticagrelor 90 MG TABLET PO SCH ×2 (07:54→21:24)
[2021-06-15] MEDS: Aspirin 81 MG TAB.CHEW PO SCH (07:54)
[2021-06-15] MEDS: Insulin LISPRO 300 UNITS/3 ML VIAL SUBQ SCH ×3 (08:43→17:52)
[2021-06-15] MEDS: cefTRIAXone 1,000 MG in 0.9 % Sodium Chloride Mini Bag 100 ML IVPB SCH (09:24)
[2021-06-15] MEDS: *HR* Heparin 5,000 UNIT/ML VIAL SQ SCH ×2 (12:46→21:25)
[2021-06-15] MEDS: *HR* OxyCODONE Immed Rel 5 MG TABLET PO PRN (17:52)
[2021-06-15] MEDS: Insulin DETEMIR 100 UNIT/ML X5UNITS SUBQ SCH (21:24)
[2021-06-16] MEDS: *HR* Heparin 5,000 UNIT/ML VIAL SQ SCH (05:01)
[2021-06-16] MEDS: *HR* OxyCODONE Immed Rel 5 MG TABLET PO PRN (05:05)
[2021-06-16 06:38] VITALS: PULSE 68
[2021-06-16] MEDS: Ranolazine 500 MG TAB.ER.12H PO SCH (08:28)
[2021-06-16] MEDS: Isosorbide MONOnitrate (24 HR) 60 MG TAB.ER.24H PO SCH (08:29)
[2021-06-16] MEDS: Insulin LISPRO 300 UNITS/3 ML VIAL SUBQ SCH (08:29)
[2021-06-16] MEDS: carvediloL 25 MG TABLET PO SCH (08:29)
[2021-06-16] MEDS: *HR* Ticagrelor 90 MG TABLET PO SCH (08:29)
[2021-06-16] MEDS: Gabapentin 100 MG CAPSULE PO SCH (08:29)
[2021-06-16] MEDS: Aspirin 81 MG TAB.CHEW PO SCH (08:29)
[2021-06-16 10:29] VITALS: BP 113/64; TEMP 97.9; O2SAT 94
== END 2021-06-16 15:59 | disposition home or self-care (01) ==
LOC: EMEROOARM 14:50 → 3BNU 14:50 → SUATTDRO 22:15 → 3BNU 23:26
PROVIDERS: ADMIT Student in an Organized Health Care Education/Training Program; ATTEND Internal Medicine

== ENCOUNTER 2021-07-03 23:34 | Observation (INO) ==
[2021-07-04] MEDS ORDERED: Isovue-370 500 ML BOTTLE IVP ONE (02:38)
[2021-07-04 02:55] LABS: Basophils % 0.4 %; Eosinophils # 0.2 K/mcL (0.0-0.6); Eosinophils % 1.9 %; Hematocrit 33.1 % (35.3-44.9); Hemoglobin 10.2 g/dL (11.5-15.4); Immature Granulocytes % 0.6 % (0-4); Lymphocytes # 1.6 K/mcL (0.6-4.6); Lymphocytes % 14.9 %; Mean Corpuscular HGB Conc 30.8 g/dL (31.6-35.5); Mean Corpuscular Hemoglobin 28.1 pg (28.0-33.3); Mean Corpuscular Volume 91.2 fL (83.0-100.0); Mean Platelet Volume 10.1 fL (9.4-12.4); Monocytes # 0.8 K/mcL (0.0-1.3); Monocytes % 7.8 %; Platelet Count 233 K/mcL (140-400); Red Blood Count 3.63 M/mcL (3.82-4.97); Red Cell Distribution Width 16.3 % (11.5-14.5); Segmented Neutrophils % 74.4 %; White Blood Count 10.8 K/mcL (4.3-11.1)
[2021-07-04 03:02] LABS: Bacteria,Urine Few per hpf (None-Few); Bilirubin,Urine Negative (Negative); Blood,Urine Negative (Negative); Clarity,Urine Clear (Clear); Color,Urine Light-Yellow (Yellow); Glucose,Urine (UA) >=1000 mg/dL (Normal); Ketones,Urine Negative (Negative); Leukocyte Esterase,Urine Trace (Negative); Nitrite,Urine Negative (Negative); PH,Urine 5.5 pH Units (5.0-8.0); Protein,Urine Negative (Neg-Trace); RBC,Urine 0-3 per hpf (0-3); Specific Gravity,Urine 1.025 (1.010-1.025); Squamous Epithelial Cell,Urine Few per hpf (None-Few); Urobilinogen,Urine Normal (Normal)
[2021-07-04] MEDS ORDERED: *HR* FentaNYL (PF) 100 MCG/2 ML VIAL IVP ONE (03:14)
[2021-07-04 03:19] LABS: Blood Urea Nitrogen 27 mg/dL (8-23); Carbon Dioxide 23 mEq/L (23-29); Chloride 103 mEq/L (98-107); Potassium 3.9 mEq/L (3.5-5.1); Sodium 135 mEq/L (136-145)
[2021-07-04 03:20] LABS: Alanine Aminotransferase 35 Units/L (7-52); Albumin 3.8 g/dL (3.5-5.7); Albumin/Globulin Ratio 1.2 (1.1-2.2); Alkaline Phosphatase 57 Units/L (34-104); Aspartate Amino Transferase 22 Units/L (13-39); BUN/Creatinine Ratio 18 (6-26); Bilirubin,Direct 0.1 mg/dL (0.0-0.2); Bilirubin,Indirect 0.4 mg/dL (0.0-1.0); Bilirubin,Total 0.5 mg/dL (0.3-1.0); Globulin 3.2 g/dL (2.4-3.5); Glucose 222 mg/dL (70-105); Lipase 65 Units/L (11-82); Osmolality,Calculated 292 (280-300); Troponin I < 0.03 ng/mL (< 0.04); eGFR For African Americans 42 (> 60); eGFR For Non-African Americans 34 (> 60)
[2021-07-04] MEDS ORDERED: Naloxone 0.4 MG/ML INJ IVP PRN (05:15)
[2021-07-04] MEDS ORDERED: Melatonin 3 MG TABLET PO PRN (05:15)
[2021-07-04] MEDS ORDERED: *HR* Dextrose 50 % in Water (Syg) 50 ML SYRINGE IVP PRN (06:36)
[2021-07-04] MEDS ORDERED: D5% in Water 1,000 ML IVC PRN (06:36)
[2021-07-04] MEDS ORDERED: Dextrose Gel 15 GM/37.5 ML TUBE PO PRN ×2 (06:36)
[2021-07-04] MEDS: Aspirin 81 MG TAB.CHEW PO SCH (08:41)
[2021-07-04] MEDS: *HR* Heparin 5,000 UNIT/ML VIAL SQ SCH ×2 (08:42→17:34)
[2021-07-04] MEDS: Gabapentin 100 MG CAPSULE PO SCH ×2 (08:42→20:40)
[2021-07-04] MEDS: *HR* Ticagrelor 90 MG TABLET PO SCH ×2 (08:42→20:40)
[2021-07-04] MEDS: Insulin LISPRO 300 UNITS/3 ML VIAL SUBQ SCH ×3 (08:43→17:35)
[2021-07-04] MEDS: carvediloL 25 MG TABLET PO SCH (17:34)
[2021-07-04] MEDS ORDERED: Insulin LISPRO 300 UNITS/3 ML VIAL SUBQ SCH (21:00)
[2021-07-04] MEDS ORDERED: tiZANidine 4 MG TABLET PO PRN (21:02)
[2021-07-05 03:19] LABS: Basophils % 0.5 %; Eosinophils # 0.2 K/mcL (0.0-0.6); Eosinophils % 2.1 %; Hematocrit 34.9 % (35.3-44.9); Hemoglobin 10.6 g/dL (11.5-15.4); Immature Granulocytes % 0.6 % (0-4); Lymphocytes # 1.4 K/mcL (0.6-4.6); Lymphocytes % 16.8 %; Mean Corpuscular HGB Conc 30.4 g/dL (31.6-35.5); Mean Corpuscular Hemoglobin 27.9 pg (28.0-33.3); Mean Corpuscular Volume 91.8 fL (83.0-100.0); Mean Platelet Volume 10.3 fL (9.4-12.4); Monocytes # 0.6 K/mcL (0.0-1.3); Neutrophils # 6.1 K/mcL (1.6-8.9); Platelet Count 243 K/mcL (140-400); Red Cell Distribution Width 16.3 % (11.5-14.5); White Blood Count 8.3 K/mcL (4.3-11.1)
[2021-07-05 03:31] LABS: Calcium 9.5 mg/dL (8.6-10.3); Potassium 3.9 mEq/L (3.5-5.1)
[2021-07-05] MEDS: *HR* Heparin 5,000 UNIT/ML VIAL SQ SCH ×2 (05:16→17:56)
[2021-07-05] MEDS ORDERED: *HR* OxyCODONE/APAP 5/325 TABLET PO PRN (08:01)
[2021-07-05] MEDS: Aspirin 81 MG TAB.CHEW PO SCH (08:13)
[2021-07-05] MEDS: Gabapentin 100 MG CAPSULE PO SCH (08:13)
[2021-07-05] MEDS: carvediloL 25 MG TABLET PO SCH ×2 (08:14→15:58)
[2021-07-05] MEDS: *HR* Ticagrelor 90 MG TABLET PO SCH (08:15)
[2021-07-05] MEDS: Insulin LISPRO 300 UNITS/3 ML VIAL SUBQ SCH ×3 (08:15→17:02)
[2021-07-05] MEDS ORDERED: Isosorbide MONOnitrate (24 HR) 60 MG TAB.ER.24H PO SCH (09:00)
[2021-07-05] MEDS ORDERED: Ranolazine 500 MG TAB.ER.12H PO SCH (09:00)
[2021-07-05] MEDS ORDERED: Isovue-370 500 ML BOTTLE IVP ONE (11:32)
[2021-07-06 15:39] VITALS: BP 134/62; PULSE 64; TEMP 98; O2SAT 92
== END 2021-07-05 18:18 | disposition home or self-care (01) ==
LOC: EMEROOARM 23:34 → 3ANU 23:34 → SUATTDRO 07-04 13:41 → 3ANU 07-04 15:15
PROVIDERS: ADMIT Family Medicine; ATTEND Internal Medicine

== ENCOUNTER 2021-07-14 18:40 | Observation (INO) ==
[2021-07-14 21:41] LABS: Basophils # 0.1 K/mcL (0.0-0.2); Basophils % 0.4 %; Eosinophils # 0.4 K/mcL (0.0-0.6); Eosinophils % 3.7 %; Hematocrit 32.3 % (35.3-44.9); Immature Granulocytes % 0.8 % (0-4); Lymphocytes # 1.3 K/mcL (0.6-4.6); Lymphocytes % 11.4 %; Mean Corpuscular Hemoglobin 28.4 pg (28.0-33.3); Mean Corpuscular Volume 91.8 fL (83.0-100.0); Mean Platelet Volume 10.9 fL (9.4-12.4); Monocytes # 0.8 K/mcL (0.0-1.3); Monocytes % 7.2 %; Neutrophils # 8.6 K/mcL (1.6-8.9); Platelet Count 252 K/mcL (140-400); Red Blood Count 3.52 M/mcL (3.82-4.97); Red Cell Distribution Width 16.1 % (11.5-14.5); Segmented Neutrophils % 76.5 %; White Blood Count 11.3 K/mcL (4.3-11.1)
[2021-07-14 21:51] LABS: Calcium 8.6 mg/dL (8.6-10.3); Potassium 4.1 mEq/L (3.5-5.1)
[2021-07-14 21:56] LABS: Troponin I 0.05 ng/mL (< 0.04)
[2021-07-14] MEDS ORDERED: Aspirin 325 MG TABLET PO STA (22:03)
[2021-07-14] MEDS ORDERED: Nitroglycerin 0.4 MG TAB.SUBL SL STA (22:10)
[2021-07-14] MEDS ORDERED: Morphine Sulfate 2 MG/ML SYRINGE IVP STA (22:11)
[2021-07-14] MEDS ORDERED: 0.9 % Sodium Chloride 1,000 ML IVC ONE (23:16)
[2021-07-14] MEDS ORDERED: Naloxone 0.4 MG/ML INJ IVP PRN (23:55)
[2021-07-14] MEDS ORDERED: Ondansetron 4 MG/2 ML VIAL IVP PRN (23:55)
[2021-07-15 02:51] LABS: Hematocrit 33.6 % (35.3-44.9); Hemoglobin 10.3 g/dL (11.5-15.4); Mean Corpuscular HGB Conc 30.7 g/dL (31.6-35.5); Mean Corpuscular Hemoglobin 28.6 pg (28.0-33.3); Mean Corpuscular Volume 93.3 fL (83.0-100.0); Mean Platelet Volume 10.3 fL (9.4-12.4); Platelet Count 242 K/mcL (140-400); White Blood Count 10.8 K/mcL (4.3-11.1)
[2021-07-15 02:55] LABS: Calcium 8.3 mg/dL (8.6-10.3); Potassium 3.9 mEq/L (3.5-5.1)
[2021-07-15] MEDS: Ampicillin/Sulbactam 3,000 MG in 0.9 % Sodium Chloride Mini Bag 100 ML IVPB SCH ×4 (05:13→22:51)
[2021-07-15] MEDS: *HR* Heparin 5,000 UNIT/ML VIAL SQ SCH ×2 (05:14→16:59)
[2021-07-15] MEDS: Isosorbide MONOnitrate (24 HR) 60 MG TAB.ER.24H PO SCH (09:10)
[2021-07-15] MEDS: carvediloL 25 MG TABLET PO SCH ×2 (09:11→16:59)
[2021-07-15] MEDS: Aspirin 81 MG TAB.CHEW PO SCH (09:11)
[2021-07-15] MEDS: *HR* Ticagrelor 90 MG TABLET PO SCH ×2 (09:11→22:05)
[2021-07-15] MEDS: Gabapentin 100 MG CAPSULE PO SCH ×2 (09:11→22:04)
[2021-07-15] MEDS: Renal Vitamin 1 CAP CAPSULE PO SCH (09:12)
[2021-07-15] MEDS: tiZANidine 4 MG TABLET PO PRN (19:40)
[2021-07-15] MEDS: Acetaminophen 325 MG TABLET PO PRN (19:40)
[2021-07-15] MEDS: Ranolazine 500 MG TAB.ER.12H PO SCH (22:04)
[2021-07-15] MEDS ORDERED: D5% in Water 1,000 ML IVC PRN (22:10)
[2021-07-15] MEDS ORDERED: *HR* Dextrose 50 % in Water (Syg) 50 ML SYRINGE IVP PRN (22:10)
[2021-07-15] MEDS ORDERED: Dextrose Gel 15 GM/37.5 ML TUBE PO PRN ×2 (22:10)
[2021-07-15] MEDS: Insulin LISPRO 300 UNITS/3 ML VIAL SUBQ SCH (22:51)
[2021-07-16] MEDS: Nitroglycerin 0.4 MG TAB.SUBL SL PRN ×3 (03:47→04:06)
[2021-07-16] MEDS ORDERED: Morphine Sulfate 2 MG/ML SYRINGE IVP ONE (04:05)
[2021-07-16] MEDS: *HR* Heparin 5,000 UNIT/ML VIAL SQ SCH ×2 (05:26→17:55)
[2021-07-16] MEDS: Ampicillin/Sulbactam 3,000 MG in 0.9 % Sodium Chloride Mini Bag 100 ML IVPB SCH ×4 (05:27→22:52)
[2021-07-16] MEDS: Insulin LISPRO 300 UNITS/3 ML VIAL SUBQ SCH ×4 (08:42→20:27)
[2021-07-16] MEDS: Ranolazine 500 MG TAB.ER.12H PO SCH ×2 (08:43→20:26)
[2021-07-16] MEDS: carvediloL 25 MG TABLET PO SCH ×2 (08:43→17:54)
[2021-07-16] MEDS: Isosorbide MONOnitrate (24 HR) 60 MG TAB.ER.24H PO SCH (08:43)
[2021-07-16] MEDS: *HR* Ticagrelor 90 MG TABLET PO SCH ×2 (08:43→20:27)
[2021-07-16] MEDS: Aspirin 81 MG TAB.CHEW PO SCH (08:43)
[2021-07-16] MEDS: Gabapentin 100 MG CAPSULE PO SCH ×2 (08:43→20:26)
[2021-07-16] MEDS: Renal Vitamin 1 CAP CAPSULE PO SCH (08:44)
[2021-07-16] MEDS ORDERED: Insulin LISPRO 300 UNITS/3 ML VIAL SUBQ SCH (21:00)
[2021-07-16] MEDS: Acetaminophen 325 MG TABLET PO PRN (22:52)
[2021-07-16] MEDS: tiZANidine 4 MG TABLET PO PRN (22:52)
[2021-07-16] MEDS ORDERED: *HR* LORazepam 2 MG/ML VIAL IVP ONE (23:54)
[2021-07-17] MEDS: *HR* Heparin 5,000 UNIT/ML VIAL SQ SCH (04:52)
[2021-07-17] MEDS: Ampicillin/Sulbactam 3,000 MG in 0.9 % Sodium Chloride Mini Bag 100 ML IVPB SCH ×2 (04:53→11:58)
[2021-07-17] MEDS: Renal Vitamin 1 CAP CAPSULE PO SCH (08:49)
[2021-07-17] MEDS: Insulin LISPRO 300 UNITS/3 ML VIAL SUBQ SCH ×2 (08:49→11:56)
[2021-07-17] MEDS: Isosorbide MONOnitrate (24 HR) 60 MG TAB.ER.24H PO SCH (08:49)
[2021-07-17] MEDS: Ranolazine 500 MG TAB.ER.12H PO SCH (08:49)
[2021-07-17] MEDS: carvediloL 25 MG TABLET PO SCH (08:49)
[2021-07-17] MEDS: *HR* Ticagrelor 90 MG TABLET PO SCH (08:49)
[2021-07-17] MEDS: Gabapentin 100 MG CAPSULE PO SCH (08:51)
[2021-07-17] MEDS: Aspirin 81 MG TAB.CHEW PO SCH (08:51)
[2021-07-17 10:16] VITALS: BP 116/65; PULSE 67; TEMP 97.6; O2SAT 92
== END 2021-07-17 14:25 | disposition home or self-care (01) ==
LOC: 3ANU 18:40 → EMEROOARM 18:40 → SUATTDRO 23:34 → 3ANU 07-15 00:05
PROVIDERS: ADMIT Internal Medicine; ATTEND Family Medicine

== ENCOUNTER 2021-08-01 03:13 | Inpatient (IN) ==
[2021-08-01] MEDS ORDERED: Azithromycin 500 MG in 0.9 % Sodium Chloride 250 ML IVPB ONE (03:29)
[2021-08-01] MEDS ORDERED: Ipratropium/Albuterol Neb 3 ML IH ONE (03:29)
[2021-08-01] MEDS ORDERED: methylPREDNISolone 125 MG/2 ML VIAL IVP ONE (03:29)
[2021-08-01] MEDS ORDERED: cefTRIAXone 1,000 MG in Water for inj. (sterile) 10 ML IVP ONE (03:29)
[2021-08-01 04:44] LABS: Basophils # 0.1 K/mcL (0.0-0.2); Basophils % 0.7 %; Eosinophils # 1.2 K/mcL (0.0-0.6); Hematocrit 33.6 % (35.3-44.9); Hemoglobin 10.2 g/dL (11.5-15.4); Immature Granulocytes % 0.3 % (0-4); Lymphocytes # 1.9 K/mcL (0.6-4.6); Lymphocytes % 15.8 %; Mean Corpuscular HGB Conc 30.4 g/dL (31.6-35.5); Mean Corpuscular Hemoglobin 27.3 pg (28.0-33.3); Mean Corpuscular Volume 90.1 fL (83.0-100.0); Mean Platelet Volume 10.2 fL (9.4-12.4); Monocytes # 0.7 K/mcL (0.0-1.3); Platelet Count 271 K/mcL (140-400); Red Blood Count 3.73 M/mcL (3.82-4.97); Red Cell Distribution Width 15.5 % (11.5-14.5); Segmented Neutrophils % 67.2 %; White Blood Count 11.9 K/mcL (4.3-11.1)
[2021-08-01 05:04] LABS: BUN/Creatinine Ratio 19 (6-26); Blood Urea Nitrogen 32 mg/dL (8-23); Calcium 9.5 mg/dL (8.6-10.3); Carbon Dioxide 24 mEq/L (23-29); Chloride 103 mEq/L (98-107); Glucose 175 mg/dL (70-105); Osmolality,Calculated 293 (280-300); Potassium 4.2 mEq/L (3.5-5.1); Sodium 136 mEq/L (136-145); Troponin I < 0.03 ng/mL (< 0.04); eGFR For African Americans 37 (> 60); eGFR For Non-African Americans 31 (> 60)
[2021-08-01] MEDS ORDERED: *HR* FentaNYL (PF) 100 MCG/2 ML VIAL IVP ONE (05:34)
[2021-08-01] MEDS ORDERED: Albuterol 2.5 MG/3 ML NEBULIZER IH ONE (05:34)
[2021-08-01] MEDS ORDERED: Aspirin 81 MG TAB.CHEW PO STA (06:21)
[2021-08-01] MEDS ORDERED: Mag Hydrox/Al Hydrox/Simeth 30 ML UDC PO PRN (07:40)
[2021-08-01] MEDS ORDERED: D5% in Water 1,000 ML IVC PRN (07:40)
[2021-08-01] MEDS ORDERED: Albuterol 2.5 MG/3 ML NEBULIZER IH PRN (07:40)
[2021-08-01] MEDS ORDERED: Naloxone 0.4 MG/ML INJ IVP PRN (07:40)
[2021-08-01] MEDS ORDERED: *HR* Dextrose 50 % in Water (Syg) 50 ML SYRINGE IVP PRN (07:40)
[2021-08-01] MEDS ORDERED: Melatonin 3 MG TABLET PO PRN (07:40)
[2021-08-01] MEDS ORDERED: MOM Conc 10 ML UD.LIQ PO PRN (07:40)
[2021-08-01] MEDS ORDERED: Ondansetron 4 MG/2 ML VIAL IVP PRN (07:40)
[2021-08-01] MEDS ORDERED: Dextrose Gel 15 GM/37.5 ML TUBE PO PRN ×2 (07:40)
[2021-08-01] MEDS ORDERED: Acetaminophen 325 MG TABLET PO PRN (07:40)
[2021-08-01] MEDS ORDERED: Furosemide 20 MG/2 ML VIAL IVP ONE (11:28)
[2021-08-01] MEDS ORDERED: tiZANidine 4 MG TABLET PO PRN (11:28)
[2021-08-01] MEDS: Ipratropium/Albuterol Neb 3 ML IH SCH ×3 (11:50→22:08)
[2021-08-01] MEDS: MethylPREDNISolone 40 MG/ML VIAL IVP SCH ×3 (12:45→23:01)
[2021-08-01] MEDS: Insulin LISPRO 300 UNITS/3 ML VIAL SUBQ SCH ×2 (12:46→16:44)
[2021-08-01 13:53] LABS: Influenza A PCR Negative (Negative); Influenza B PCR Negative (Negative); Resp. Syncytial Virus PCR Negative (Negative)
[2021-08-01 13:55] LABS: SARS-CoV-2 by PCR (In House) Negative (Negative)
[2021-08-01] MEDS: carvediloL 25 MG TABLET PO SCH (16:45)
[2021-08-01] MEDS: *HR* Ticagrelor 90 MG TABLET PO SCH (20:02)
[2021-08-01] MEDS: Gabapentin 100 MG CAPSULE PO SCH (20:02)
[2021-08-01] MEDS: Ranolazine 500 MG TAB.ER.12H PO SCH (20:03)
[2021-08-01] MEDS ORDERED: Insulin LISPRO 300 UNITS/3 ML VIAL SUBQ SCH (21:00)
[2021-08-02 01:26] LABS: Calcium 9.7 mg/dL (8.6-10.3); Magnesium 1.9 mg/dL (1.6-2.6); Potassium 4.3 mEq/L (3.5-5.1)
[2021-08-02 01:42] LABS: Hematocrit 36.6 % (35.3-44.9); Hemoglobin 11.2 g/dL (11.5-15.4); Mean Corpuscular HGB Conc 30.6 g/dL (31.6-35.5); Mean Corpuscular Hemoglobin 27.5 pg (28.0-33.3); Mean Corpuscular Volume 89.9 fL (83.0-100.0); Mean Platelet Volume 10.7 fL (9.4-12.4); Platelet Count 327 K/mcL (140-400); Red Blood Count 4.07 M/mcL (3.82-4.97); Red Cell Distribution Width 15.7 % (11.5-14.5)
[2021-08-02] MEDS: Ipratropium/Albuterol Neb 3 ML IH SCH ×4 (03:32→21:18)
[2021-08-02] MEDS ORDERED: *HR* LORazepam 0.5 MG TABLET PO ONE (04:51)
[2021-08-02] MEDS: MethylPREDNISolone 40 MG/ML VIAL IVP SCH ×3 (05:09→17:44)
[2021-08-02] MEDS: Azithromycin 500 MG in 0.9 % Sodium Chloride 250 ML IVPB SCH (08:04)
[2021-08-02] MEDS: *HR* Enoxaparin 40 MG/0.4 ML SYRINGE SQ SCH (08:05)
[2021-08-02] MEDS: Insulin LISPRO 300 UNITS/3 ML VIAL SUBQ SCH ×5 (08:05→21:12)
[2021-08-02] MEDS: Isosorbide MONOnitrate (24 HR) 60 MG TAB.ER.24H PO SCH (08:05)
[2021-08-02] MEDS: Ranolazine 500 MG TAB.ER.12H PO SCH ×2 (08:06→21:13)
[2021-08-02] MEDS: *HR* Ticagrelor 90 MG TABLET PO SCH ×2 (08:06→21:12)
[2021-08-02] MEDS: Gabapentin 100 MG CAPSULE PO SCH ×2 (08:06→21:13)
[2021-08-02] MEDS: Aspirin 81 MG TAB.CHEW PO SCH (08:07)
[2021-08-02] MEDS: carvediloL 25 MG TABLET PO SCH ×2 (08:07→17:44)
[2021-08-02] MEDS: Insulin DETEMIR 100 UNIT/ML X5UNITS SUBQ SCH (21:13)
[2021-08-03 01:56] LABS: Hematocrit 34.5 % (35.3-44.9); Hemoglobin 10.3 g/dL (11.5-15.4); Mean Corpuscular HGB Conc 29.9 g/dL (31.6-35.5); Mean Corpuscular Hemoglobin 27.5 pg (28.0-33.3); Mean Platelet Volume 10.8 fL (9.4-12.4); Platelet Count 322 K/mcL (140-400); Red Blood Count 3.75 M/mcL (3.82-4.97); White Blood Count 18.2 K/mcL (4.3-11.1)
[2021-08-03 02:15] LABS: Calcium 9.5 mg/dL (8.6-10.3); Potassium 4.1 mEq/L (3.5-5.1)
[2021-08-03] MEDS: Ipratropium/Albuterol Neb 3 ML IH SCH ×4 (04:33→22:44)
[2021-08-03] MEDS: Azithromycin 500 MG in 0.9 % Sodium Chloride 250 ML IVPB SCH (07:59)
[2021-08-03] MEDS: Aspirin 81 MG TAB.CHEW PO SCH (08:00)
[2021-08-03] MEDS: Insulin LISPRO 300 UNITS/3 ML VIAL SUBQ SCH ×4 (08:00→21:51)
[2021-08-03] MEDS: predniSONE 20 MG TABLET PO SCH (08:01)
[2021-08-03] MEDS: carvediloL 25 MG TABLET PO SCH ×2 (08:01→17:03)
[2021-08-03] MEDS: Ranolazine 500 MG TAB.ER.12H PO SCH ×2 (08:01→21:52)
[2021-08-03] MEDS: Isosorbide MONOnitrate (24 HR) 60 MG TAB.ER.24H PO SCH (08:01)
[2021-08-03] MEDS: Gabapentin 100 MG CAPSULE PO SCH ×2 (08:01→21:52)
[2021-08-03] MEDS: *HR* Ticagrelor 90 MG TABLET PO SCH ×2 (08:02→21:51)
[2021-08-03] MEDS: *HR* Enoxaparin 40 MG/0.4 ML SYRINGE SQ SCH (08:02)
[2021-08-03] MEDS: 0.9 % Sodium Chloride 1,000 ML IVC SCH (14:01)
[2021-08-03] MEDS: Insulin DETEMIR 100 UNIT/ML X5UNITS SUBQ SCH (21:52)
[2021-08-03] MEDS: Nitroglycerin 0.4 MG TAB.SUBL SL PRN ×2 (23:29→23:39)
[2021-08-04 00:43] LABS: Hematocrit 35.7 % (35.3-44.9); Hemoglobin 10.4 g/dL (11.5-15.4); Mean Corpuscular HGB Conc 29.1 g/dL (31.6-35.5); Mean Corpuscular Hemoglobin 27.4 pg (28.0-33.3); Mean Corpuscular Volume 93.9 fL (83.0-100.0); Mean Platelet Volume 10.7 fL (9.4-12.4); Platelet Count 275 K/mcL (140-400); Red Cell Distribution Width 15.9 % (11.5-14.5); White Blood Count 14.1 K/mcL (4.3-11.1)
[2021-08-04 00:58] LABS: Calcium 9.1 mg/dL (8.6-10.3); Potassium 4.2 mEq/L (3.5-5.1)
[2021-08-04] MEDS: Ipratropium/Albuterol Neb 3 ML IH SCH ×4 (04:35→21:13)
[2021-08-04] MEDS: Azithromycin 500 MG in 0.9 % Sodium Chloride 250 ML IVPB SCH (09:29)
[2021-08-04] MEDS: *HR* Enoxaparin 40 MG/0.4 ML SYRINGE SQ SCH (09:29)
[2021-08-04] MEDS: Gabapentin 100 MG CAPSULE PO SCH ×2 (09:30→20:04)
[2021-08-04] MEDS: Aspirin 81 MG TAB.CHEW PO SCH (09:30)
[2021-08-04] MEDS: Isosorbide MONOnitrate (24 HR) 60 MG TAB.ER.24H PO SCH (09:30)
[2021-08-04] MEDS: predniSONE 20 MG TABLET PO SCH (09:31)
[2021-08-04] MEDS: carvediloL 25 MG TABLET PO SCH ×2 (09:31→18:08)
[2021-08-04] MEDS: Ranolazine 500 MG TAB.ER.12H PO SCH ×2 (09:32→20:04)
[2021-08-04] MEDS: *HR* Ticagrelor 90 MG TABLET PO SCH ×2 (09:32→20:04)
[2021-08-04] MEDS: Insulin LISPRO 300 UNITS/3 ML VIAL SUBQ SCH ×4 (09:32→20:05)
[2021-08-04] MEDS: 0.9 % Sodium Chloride 1,000 ML IVC SCH (11:04)
[2021-08-04] MEDS: Insulin DETEMIR 100 UNIT/ML X5UNITS SUBQ SCH (20:05)
[2021-08-05] MEDS: Ipratropium/Albuterol Neb 3 ML IH SCH ×4 (04:13→22:04)
[2021-08-05] MEDS: 0.9 % Sodium Chloride 1,000 ML IVC SCH (04:32)
[2021-08-05] MEDS: *HR* Enoxaparin 40 MG/0.4 ML SYRINGE SQ SCH (04:33)
[2021-08-05 06:17] LABS: Hematocrit 32.9 % (35.3-44.9); Hemoglobin 9.9 g/dL (11.5-15.4); Mean Corpuscular HGB Conc 30.1 g/dL (31.6-35.5); Mean Corpuscular Hemoglobin 27.1 pg (28.0-33.3); Mean Corpuscular Volume 90.1 fL (83.0-100.0); Mean Platelet Volume 10.9 fL (9.4-12.4); Platelet Count 260 K/mcL (140-400); Red Blood Count 3.65 M/mcL (3.82-4.97); Red Cell Distribution Width 15.5 % (11.5-14.5); White Blood Count 11.9 K/mcL (4.3-11.1)
[2021-08-05 06:35] LABS: Potassium 4.3 mEq/L (3.5-5.1)
[2021-08-05] MEDS: carvediloL 25 MG TABLET PO SCH ×2 (08:12→17:11)
[2021-08-05] MEDS: Isosorbide MONOnitrate (24 HR) 60 MG TAB.ER.24H PO SCH (08:12)
[2021-08-05] MEDS: Ranolazine 500 MG TAB.ER.12H PO SCH ×2 (08:12→20:16)
[2021-08-05] MEDS: Azithromycin 500 MG in 0.9 % Sodium Chloride 250 ML IVPB SCH (08:13)
[2021-08-05] MEDS: Aspirin 81 MG TAB.CHEW PO SCH (08:13)
[2021-08-05] MEDS: predniSONE 20 MG TABLET PO SCH (08:13)
[2021-08-05] MEDS: *HR* Ticagrelor 90 MG TABLET PO SCH ×2 (08:13→20:16)
[2021-08-05] MEDS: Gabapentin 100 MG CAPSULE PO SCH ×2 (08:13→20:17)
[2021-08-05] MEDS: Insulin LISPRO 300 UNITS/3 ML VIAL SUBQ SCH ×4 (08:14→20:17)
[2021-08-05] MEDS: Insulin DETEMIR 100 UNIT/ML X5UNITS SUBQ SCH (20:17)
[2021-08-06 01:17] LABS: Hematocrit 34.4 % (35.3-44.9); Hemoglobin 10.6 g/dL (11.5-15.4); Mean Corpuscular HGB Conc 30.8 g/dL (31.6-35.5); Mean Corpuscular Hemoglobin 27.2 pg (28.0-33.3); Mean Corpuscular Volume 88.2 fL (83.0-100.0); Mean Platelet Volume 10.8 fL (9.4-12.4); Platelet Count 269 K/mcL (140-400); Red Cell Distribution Width 15.6 % (11.5-14.5); White Blood Count 14.2 K/mcL (4.3-11.1)
[2021-08-06 01:34] LABS: Calcium 8.7 mg/dL (8.6-10.3); Potassium 4.4 mEq/L (3.5-5.1)
[2021-08-06] MEDS: *HR* Enoxaparin 40 MG/0.4 ML SYRINGE SQ SCH (01:59)
[2021-08-06] MEDS: 0.9 % Sodium Chloride 1,000 ML IVC SCH ×2 (01:59→20:38)
[2021-08-06] MEDS: Ipratropium/Albuterol Neb 3 ML IH SCH ×4 (03:05→20:27)
[2021-08-06] MEDS: Insulin LISPRO 300 UNITS/3 ML VIAL SUBQ SCH ×4 (07:28→20:41)
[2021-08-06] MEDS: Aspirin 81 MG TAB.CHEW PO SCH (08:11)
[2021-08-06] MEDS: Isosorbide MONOnitrate (24 HR) 60 MG TAB.ER.24H PO SCH (08:11)
[2021-08-06] MEDS: Gabapentin 100 MG CAPSULE PO SCH ×2 (08:11→20:43)
[2021-08-06] MEDS: Ranolazine 500 MG TAB.ER.12H PO SCH ×2 (08:11→20:43)
[2021-08-06] MEDS: predniSONE 20 MG TABLET PO SCH (08:12)
[2021-08-06] MEDS: Azithromycin 500 MG in 0.9 % Sodium Chloride 250 ML IVPB SCH (08:12)
[2021-08-06] MEDS: *HR* Ticagrelor 90 MG TABLET PO SCH ×2 (08:12→20:42)
[2021-08-06] MEDS: carvediloL 25 MG TABLET PO SCH ×2 (08:12→17:19)
[2021-08-06] MEDS: Insulin DETEMIR 100 UNIT/ML X5UNITS SUBQ SCH (20:42)
[2021-08-07 02:26] LABS: Hematocrit 35.3 % (35.3-44.9); Hemoglobin 10.6 g/dL (11.5-15.4); Mean Corpuscular Volume 90.1 fL (83.0-100.0); Mean Platelet Volume 10.7 fL (9.4-12.4); Platelet Count 266 K/mcL (140-400); Red Blood Count 3.92 M/mcL (3.82-4.97); Red Cell Distribution Width 15.7 % (11.5-14.5); White Blood Count 16.4 K/mcL (4.3-11.1)
[2021-08-07 02:42] LABS: Calcium 8.9 mg/dL (8.6-10.3); Potassium 4.3 mEq/L (3.5-5.1)
[2021-08-07] MEDS: Ipratropium/Albuterol Neb 3 ML IH SCH ×4 (03:52→20:09)
[2021-08-07] MEDS: *HR* Enoxaparin 40 MG/0.4 ML SYRINGE SQ SCH (04:47)
[2021-08-07] MEDS: Aspirin 81 MG TAB.CHEW PO SCH (08:33)
[2021-08-07] MEDS: Isosorbide MONOnitrate (24 HR) 60 MG TAB.ER.24H PO SCH (08:33)
[2021-08-07] MEDS: *HR* Ticagrelor 90 MG TABLET PO SCH ×2 (08:33→21:10)
[2021-08-07] MEDS: Gabapentin 100 MG CAPSULE PO SCH ×2 (08:34→21:07)
[2021-08-07] MEDS: Ranolazine 500 MG TAB.ER.12H PO SCH ×2 (08:34→21:07)
[2021-08-07] MEDS: carvediloL 25 MG TABLET PO SCH ×2 (08:34→17:14)
[2021-08-07] MEDS: Insulin LISPRO 300 UNITS/3 ML VIAL SUBQ SCH ×4 (08:34→20:47)
[2021-08-07] MEDS ORDERED: Insulin DETEMIR 100 UNIT/ML X5UNITS SUBQ SCH (21:00)
[2021-08-08] MEDS: Ipratropium/Albuterol Neb 3 ML IH SCH ×3 (03:14→15:57)
[2021-08-08] MEDS: *HR* Enoxaparin 40 MG/0.4 ML SYRINGE SQ SCH (05:19)
[2021-08-08 05:54] LABS: Hematocrit 35.5 % (35.3-44.9); Hemoglobin 10.5 g/dL (11.5-15.4); Mean Corpuscular HGB Conc 29.6 g/dL (31.6-35.5); Mean Corpuscular Hemoglobin 26.8 pg (28.0-33.3); Mean Corpuscular Volume 90.6 fL (83.0-100.0); Platelet Count 254 K/mcL (140-400); Red Blood Count 3.92 M/mcL (3.82-4.97); Red Cell Distribution Width 15.9 % (11.5-14.5); White Blood Count 13.2 K/mcL (4.3-11.1)
[2021-08-08 06:18] LABS: Calcium 8.8 mg/dL (8.6-10.3); Potassium 4.4 mEq/L (3.5-5.1)
[2021-08-08 06:52] VITALS: BP 146/83; PULSE 75; TEMP 98.2
[2021-08-08] MEDS: Insulin LISPRO 300 UNITS/3 ML VIAL SUBQ SCH (07:41)
[2021-08-08] MEDS: Ranolazine 500 MG TAB.ER.12H PO SCH (08:22)
[2021-08-08] MEDS: *HR* Ticagrelor 90 MG TABLET PO SCH (08:22)
[2021-08-08] MEDS: Gabapentin 100 MG CAPSULE PO SCH (08:22)
[2021-08-08] MEDS: Aspirin 81 MG TAB.CHEW PO SCH (08:22)
[2021-08-08] MEDS: carvediloL 25 MG TABLET PO SCH (08:22)
[2021-08-08] MEDS: Isosorbide MONOnitrate (24 HR) 60 MG TAB.ER.24H PO SCH (08:22)
[2021-08-08 13:14] LABS: Influenza A PCR Negative (Negative); Influenza B PCR Negative (Negative); Resp. Syncytial Virus PCR Negative (Negative)
[2021-08-08 13:18] LABS: SARS-CoV-2 by PCR (In House) Negative (Negative)
[2021-08-08 15:59] VITALS: O2SAT 93
== END 2021-08-08 16:49 | DRG 140 ==
LOC: 3BNU 03:13 → EMEROOARM 03:13 → SUATTDRO 13:20 → 3BNU 14:05
PROVIDERS: ADMIT Internal Medicine; ATTEND Registered Nurse

== ENCOUNTER 2021-08-30 00:42 | Observation (INO) ==
[2021-08-30] MEDS ORDERED: Morphine Sulfate 2 MG/ML SYRINGE IVP ONE (01:00)
[2021-08-30 01:23] LABS: Basophils # 0.1 K/mcL (0.0-0.2); Basophils % 0.5 %; Eosinophils % 8.8 %; Hematocrit 33.7 % (35.3-44.9); Hemoglobin 10.3 g/dL (11.5-15.4); Immature Granulocytes % 0.4 % (0-4); Lymphocytes # 1.7 K/mcL (0.6-4.6); Lymphocytes % 15.5 %; Mean Corpuscular HGB Conc 30.6 g/dL (31.6-35.5); Mean Corpuscular Hemoglobin 27.2 pg (28.0-33.3); Mean Corpuscular Volume 88.9 fL (83.0-100.0); Mean Platelet Volume 10.6 fL (9.4-12.4); Monocytes # 0.8 K/mcL (0.0-1.3); Monocytes % 7.5 %; Neutrophils # 7.4 K/mcL (1.6-8.9); Platelet Count 255 K/mcL (140-400); Red Blood Count 3.79 M/mcL (3.82-4.97); Red Cell Distribution Width 16.5 % (11.5-14.5); Segmented Neutrophils % 67.3 %
[2021-08-30 01:30] LABS: INR 1.1; Prothrombin Time 12.3 Seconds (9.4-12.1)
[2021-08-30 01:33] LABS: Activated Partial Thrombo Time 29.8 Seconds (26.0-36.0)
[2021-08-30 01:39] LABS: BUN/Creatinine Ratio 16 (6-26); Blood Urea Nitrogen 27 mg/dL (8-23); Calcium 8.9 mg/dL (8.6-10.3); Carbon Dioxide 25 mEq/L (23-29); Chloride 102 mEq/L (98-107); Glucose 262 mg/dL (70-105); Lipase 75 Units/L (11-82); Osmolality,Calculated 296 (280-300); Potassium 3.9 mEq/L (3.5-5.1); Sodium 136 mEq/L (136-145); Troponin I < 0.03 ng/mL (< 0.04); eGFR For African Americans 38 (> 60); eGFR For Non-African Americans 31 (> 60)
[2021-08-30] MEDS ORDERED: *HR* FentaNYL (PF) 100 MCG/2 ML VIAL IVP ONE (06:46)
[2021-08-30] MEDS: Nitroglycerin 0.4 MG TAB.SUBL SL PRN ×3 (06:54→07:05)
[2021-08-30] MEDS ORDERED: Naloxone 0.4 MG/ML INJ IVP PRN (07:55)
[2021-08-30] MEDS ORDERED: Ondansetron 4 MG/2 ML VIAL IVP PRN (07:55)
[2021-08-30] MEDS ORDERED: Acetaminophen 325 MG TABLET PO PRN (07:55)
[2021-08-30] MEDS ORDERED: Nitroglycerin 0.4 MG TAB.SUBL SL PRN (07:59)
[2021-08-30] MEDS ORDERED: tiZANidine 4 MG TABLET PO PRN (07:59)
[2021-08-30] MEDS: *HR* Ticagrelor 90 MG TABLET PO SCH ×2 (08:31→21:33)
[2021-08-30] MEDS: Ranolazine 500 MG TAB.ER.12H PO SCH ×2 (08:31→21:32)
[2021-08-30] MEDS: Aspirin 81 MG TAB.CHEW PO SCH (08:31)
[2021-08-30] MEDS: Gabapentin 100 MG CAPSULE PO SCH ×2 (08:31→21:33)
[2021-08-30] MEDS ORDERED: D5% in Water 1,000 ML IVC PRN (08:34)
[2021-08-30] MEDS ORDERED: Dextrose Gel 15 GM/37.5 ML TUBE PO PRN ×2 (08:34)
[2021-08-30] MEDS ORDERED: *HR* Dextrose 50 % in Water (Syg) 50 ML SYRINGE IVP PRN (08:34)
[2021-08-30] MEDS: carvediloL 25 MG TABLET PO SCH ×2 (13:56→17:43)
[2021-08-30] MEDS: Insulin LISPRO 300 UNITS/3 ML VIAL SUBQ SCH ×2 (13:56→17:56)
[2021-08-30] MEDS: Isosorbide MONOnitrate (24 HR) 60 MG TAB.ER.24H PO SCH (17:56)
[2021-08-30] MEDS ORDERED: Insulin DETEMIR 100 UNIT/ML X5UNITS SUBQ SCH (21:00)
[2021-08-31 03:31] LABS: Red Cell Distribution Width 16.7 % (11.5-14.5)
[2021-08-31 03:32] LABS: Basophils % 0.4 %; Eosinophils % 10.3 %; Hematocrit 32.3 % (35.3-44.9); Hemoglobin 9.8 g/dL (11.5-15.4); Immature Granulocytes % 0.3 % (0-4); Lymphocytes # 1.8 K/mcL (0.6-4.6); Lymphocytes % 18.8 %; Mean Corpuscular HGB Conc 30.3 g/dL (31.6-35.5); Mean Corpuscular Hemoglobin 27.7 pg (28.0-33.3); Mean Corpuscular Volume 91.2 fL (83.0-100.0); Mean Platelet Volume 10.5 fL (9.4-12.4); Monocytes # 0.8 K/mcL (0.0-1.3); Monocytes % 8.2 %; Neutrophils # 5.8 K/mcL (1.6-8.9); Platelet Count 277 K/mcL (140-400); Red Blood Count 3.54 M/mcL (3.82-4.97); White Blood Count 9.4 K/mcL (4.3-11.1)
[2021-08-31 03:33] LABS: Magnesium 2.1 mg/dL (1.6-2.6); Potassium 4.2 mEq/L (3.5-5.1)
[2021-08-31 04:56] LABS: Anisocytosis 1+ (Not Present); Hypochromasia Present (Not Present); Platelet Estimate Normal (Normal)
[2021-08-31] MEDS ORDERED: *HR* Enoxaparin 40 MG/0.4 ML SYRINGE SQ SCH (06:00)
[2021-08-31 07:10] VITALS: PULSE 69; TEMP 97.6
[2021-08-31] MEDS: carvediloL 25 MG TABLET PO SCH (08:03)
[2021-08-31] MEDS: Gabapentin 100 MG CAPSULE PO SCH (08:03)
[2021-08-31] MEDS: Aspirin 81 MG TAB.CHEW PO SCH (08:04)
[2021-08-31] MEDS: Ranolazine 500 MG TAB.ER.12H PO SCH (08:04)
[2021-08-31] MEDS: *HR* Ticagrelor 90 MG TABLET PO SCH (08:04)
[2021-08-31] MEDS: Isosorbide MONOnitrate (24 HR) 60 MG TAB.ER.24H PO SCH (08:04)
[2021-08-31] MEDS: Insulin LISPRO 300 UNITS/3 ML VIAL SUBQ SCH ×2 (08:06→11:38)
[2021-08-31 11:32] VITALS: BP 111/65; O2SAT 93
== END 2021-08-31 14:13 | disposition home or self-care (01) ==
LOC: EMEROOARM 00:42 → 3NENU 00:42 → SUATTDRO 09:02 → 3NENU 10:30
PROVIDERS: ADMIT General Practice; ATTEND Internal Medicine

== ENCOUNTER 2021-10-29 20:41 | Inpatient (IN) ==
[2021-10-29 21:33] LABS: Basophils % 0.3 %; Eosinophils # 0.3 K/mcL (0.0-0.6); Eosinophils % 2.5 %; Hematocrit 32.6 % (35.3-44.9); Hemoglobin 9.9 g/dL (11.5-15.4); Immature Granulocytes % 0.6 % (0-4); Lymphocytes # 1.6 K/mcL (0.6-4.6); Lymphocytes % 15.9 %; Mean Corpuscular HGB Conc 30.4 g/dL (31.6-35.5); Mean Corpuscular Hemoglobin 25.6 pg (28.0-33.3); Mean Corpuscular Volume 84.5 fL (83.0-100.0); Monocytes # 0.7 K/mcL (0.0-1.3); Monocytes % 6.6 %; Neutrophils # 7.3 K/mcL (1.6-8.9); Platelet Count 239 K/mcL (140-400); Red Blood Count 3.86 M/mcL (3.82-4.97); Red Cell Distribution Width 18.9 % (11.5-14.5); Segmented Neutrophils % 74.1 %; White Blood Count 9.9 K/mcL (4.3-11.1)
[2021-10-29 21:40] LABS: INR 1.1; Prothrombin Time 12.7 Seconds (9.4-12.1)
[2021-10-29 21:43] LABS: Activated Partial Thrombo Time 29.6 Seconds (26.0-36.0)
[2021-10-29 22:03] LABS: BUN/Creatinine Ratio 15 (6-26); Blood Urea Nitrogen 22 mg/dL (8-23); Calcium 8.6 mg/dL (8.6-10.3); Carbon Dioxide 25 mEq/L (23-29); Chloride 98 mEq/L (98-107); Glucose 298 mg/dL (70-105); Lipase 48 Units/L (11-82); Osmolality,Calculated 290 (280-300); Sodium 133 mEq/L (136-145); Troponin I < 0.03 ng/mL (< 0.04); eGFR For African Americans 43 (> 60); eGFR For Non-African Americans 36 (> 60)
[2021-10-29 23:01] LABS: Bilirubin,Urine Negative (Negative); Blood,Urine Negative (Negative); Budding Yeast,Urine Few per hpf (None Seen); Clarity,Urine Turbid (Clear); Color,Urine Light-Yellow (Yellow); Glucose,Urine (UA) >=1000 mg/dL (Normal); Ketones,Urine Negative (Negative); Leukocyte Esterase,Urine Large (Negative); Nitrite,Urine Negative (Negative); PH,Urine 5.5 pH Units (5.0-8.0); Protein,Urine Negative (Neg-Trace); RBC,Urine 15-30 per hpf (0-3); Specific Gravity,Urine > 1.030 (1.010-1.025); Squamous Epithelial Cell,Urine Many per hpf (None-Few); Urobilinogen,Urine Normal (Normal); WBC,Urine 30-50 per hpf (0-3)
[2021-10-29] MEDS ORDERED: cephALEXin 500 MG CAPSULE PO ONE (23:02)
[2021-10-29] MEDS ORDERED: Ketorolac 30 MG/ML VIAL IVP STA (23:11)
[2021-10-30] MEDS ORDERED: *HR* OxyCODONE Immed Rel 5 MG TABLET PO PRN (02:05)
[2021-10-30] MEDS ORDERED: Acetaminophen 325 MG TABLET PO PRN (02:05)
[2021-10-30] MEDS ORDERED: Ondansetron ODT 4 MG TAB.RAPDIS SL PRN (02:05)
[2021-10-30] MEDS ORDERED: Melatonin 3 MG TABLET PO PRN (02:05)
[2021-10-30] MEDS ORDERED: Naloxone 0.4 MG/ML INJ IVP PRN (02:05)
[2021-10-30] MEDS ORDERED: *HR* HYDROcodone/Acet 5/325 mg TABLET PO PRN (02:05)
[2021-10-30] MEDS ORDERED: Dextrose Gel 15 GM/37.5 ML TUBE PO PRN ×2 (02:23)
[2021-10-30] MEDS ORDERED: D5% in Water 1,000 ML IVC PRN (02:23)
[2021-10-30] MEDS ORDERED: *HR* Dextrose 50 % in Water (Syg) 50 ML SYRINGE IVP PRN (02:23)
[2021-10-30] MEDS ORDERED: Nitroglycerin 0.4 MG TAB.SUBL SL PRN (02:49)
[2021-10-30] MEDS ORDERED: 0.9 % Sodium Chloride 1,000 ML IV ONE (02:56)
[2021-10-30] MEDS: *HR* Heparin 5,000 UNIT/ML VIAL SQ SCH ×2 (05:49→20:28)
[2021-10-30] MEDS: Insulin LISPRO 300 UNITS/3 ML VIAL SUBQ SCH ×3 (05:52→20:05)
[2021-10-30 06:47] LABS: Hematocrit 33.7 % (35.3-44.9); Hemoglobin 10.4 g/dL (11.5-15.4); Mean Corpuscular HGB Conc 30.9 g/dL (31.6-35.5); Mean Corpuscular Hemoglobin 26.1 pg (28.0-33.3); Mean Corpuscular Volume 84.5 fL (83.0-100.0); Mean Platelet Volume 9.8 fL (9.4-12.4); Platelet Count 248 K/mcL (140-400); Red Blood Count 3.99 M/mcL (3.82-4.97); Red Cell Distribution Width 19.1 % (11.5-14.5); White Blood Count 9.8 K/mcL (4.3-11.1)
[2021-10-30 07:15] LABS: BUN/Creatinine Ratio 15 (6-26); Blood Urea Nitrogen 24 mg/dL (8-23); Carbon Dioxide 25 mEq/L (23-29); Chloride 99 mEq/L (98-107); Cholesterol 249 mg/dL (< 200); Glucose 196 mg/dL (70-105); HDL Cholesterol 50 mg/dL (40-59); LDL Cholesterol,Calculated 152 mg/dL (< 100); Magnesium 1.8 mg/dL (1.6-2.6); Osmolality,Calculated 289 (280-300); Potassium 3.8 mEq/L (3.5-5.1); Sodium 135 mEq/L (136-145); Triglycerides 235 mg/dL (< 150); Troponin I < 0.03 ng/mL (< 0.04); eGFR For African Americans 40 (> 60); eGFR For Non-African Americans 33 (> 60)
[2021-10-30 07:20] LABS: Thyroid Stimulating Hormone 2.252 mcIU/mL (0.340-5.600)
[2021-10-30] MEDS: cephALEXin 500 MG CAPSULE PO SCH ×5 (10:23→20:33)
[2021-10-30] MEDS: Aspirin Enteric Coated 81 MG Tablet PO SCH (10:23)
[2021-10-30 10:41] LABS: Estimated Average Glucose 252 mg/dl; Hemoglobin A1C 10.4 %
[2021-10-30] MEDS: 0.9 % Sodium Chloride 1,000 ML IVC SCH (20:29)
[2021-10-31] MEDS: Insulin LISPRO 300 UNITS/3 ML VIAL SUBQ SCH ×5 (01:19→21:45)
[2021-10-31] MEDS: *HR* Heparin 5,000 UNIT/ML VIAL SQ SCH ×2 (06:01→17:09)
[2021-10-31] MEDS ORDERED: tiZANidine 4 MG TABLET PO PRN (07:51)
[2021-10-31] MEDS ORDERED: Isovue-370 500 ML BOTTLE IVP ONE (07:56)
[2021-10-31] MEDS ORDERED: Perflutren Lipid Microsphere 1.3 ML in 0.9 % Sodium Chloride 8.7 ML IVP PRN (07:56)
[2021-10-31] MEDS: Albuterol 2.5 MG/3 ML NEBULIZER IH SCH ×5 (08:35→23:41)
[2021-10-31] MEDS: Ranolazine 500 MG TAB.ER.12H PO SCH ×2 (08:51→21:44)
[2021-10-31] MEDS: Aspirin Enteric Coated 81 MG Tablet PO SCH (08:51)
[2021-10-31] MEDS: Isosorbide MONOnitrate (24 HR) 60 MG TAB.ER.24H PO SCH (08:51)
[2021-10-31] MEDS: *HR* Ticagrelor 90 MG TABLET PO SCH ×2 (08:51→21:44)
[2021-10-31] MEDS: carvediloL 25 MG TABLET PO SCH ×2 (08:51→17:09)
[2021-10-31] MEDS: cephALEXin 500 MG CAPSULE PO SCH ×4 (08:52→21:44)
[2021-10-31] MEDS: Gabapentin 100 MG CAPSULE PO SCH ×2 (08:52→21:44)
[2021-10-31] MEDS: 0.9 % Sodium Chloride 1,000 ML IVC SCH (12:57)
[2021-11-01 02:14] LABS: Basophils % 0.3 %; Eosinophils # 0.3 K/mcL (0.0-0.6); Eosinophils % 2.9 %; Hematocrit 32.5 % (35.3-44.9); Hemoglobin 9.8 g/dL (11.5-15.4); Immature Granulocytes % 0.3 % (0-4); Lymphocytes # 1.5 K/mcL (0.6-4.6); Lymphocytes % 14.2 %; Mean Corpuscular HGB Conc 30.2 g/dL (31.6-35.5); Mean Corpuscular Hemoglobin 26.3 pg (28.0-33.3); Mean Corpuscular Volume 87.1 fL (83.0-100.0); Mean Platelet Volume 10.6 fL (9.4-12.4); Monocytes # 0.7 K/mcL (0.0-1.3); Monocytes % 6.4 %; Neutrophils # 7.8 K/mcL (1.6-8.9); Platelet Count 238 K/mcL (140-400); Red Blood Count 3.73 M/mcL (3.82-4.97); Red Cell Distribution Width 19.5 % (11.5-14.5); Segmented Neutrophils % 75.9 %; White Blood Count 10.2 K/mcL (4.3-11.1)
[2021-11-01 02:25] LABS: Calcium 8.6 mg/dL (8.6-10.3); Magnesium 1.7 mg/dL (1.6-2.6); Phosphorous 3.2 mg/dL (2.7-4.5); Potassium 4.2 mEq/L (3.5-5.1)
[2021-11-01] MEDS: Albuterol 2.5 MG/3 ML NEBULIZER IH SCH ×6 (03:35→23:51)
[2021-11-01] MEDS: *HR* Heparin 5,000 UNIT/ML VIAL SQ SCH ×2 (04:10→16:53)
[2021-11-01] MEDS: 0.9 % Sodium Chloride 1,000 ML IVC SCH ×2 (04:10→17:33)
[2021-11-01] MEDS: Insulin LISPRO 300 UNITS/3 ML VIAL SUBQ SCH ×4 (07:59→20:16)
[2021-11-01] MEDS: carvediloL 25 MG TABLET PO SCH ×2 (08:00→16:52)
[2021-11-01] MEDS: Gabapentin 100 MG CAPSULE PO SCH ×2 (08:00→20:13)
[2021-11-01] MEDS: cephALEXin 500 MG CAPSULE PO SCH ×4 (08:00→20:13)
[2021-11-01] MEDS: Ranolazine 500 MG TAB.ER.12H PO SCH ×2 (08:00→20:14)
[2021-11-01] MEDS: *HR* Ticagrelor 90 MG TABLET PO SCH ×2 (08:00→20:13)
[2021-11-01] MEDS: Isosorbide MONOnitrate (24 HR) 60 MG TAB.ER.24H PO SCH (08:00)
[2021-11-01] MEDS: Aspirin Enteric Coated 81 MG Tablet PO SCH (08:01)
[2021-11-02] MEDS: Albuterol 2.5 MG/3 ML NEBULIZER IH SCH ×5 (03:44→19:56)
[2021-11-02] MEDS: 0.9 % Sodium Chloride 1,000 ML IVC SCH ×2 (05:35→18:13)
[2021-11-02] MEDS: *HR* Heparin 5,000 UNIT/ML VIAL SQ SCH ×2 (05:35→18:12)
[2021-11-02] MEDS: cephALEXin 500 MG CAPSULE PO SCH (09:10)
[2021-11-02] MEDS: carvediloL 25 MG TABLET PO SCH ×2 (09:10→18:12)
[2021-11-02] MEDS: Gabapentin 100 MG CAPSULE PO SCH ×2 (09:10→19:39)
[2021-11-02] MEDS: Ranolazine 500 MG TAB.ER.12H PO SCH ×2 (09:10→19:39)
[2021-11-02] MEDS: Isosorbide MONOnitrate (24 HR) 60 MG TAB.ER.24H PO SCH (09:10)
[2021-11-02] MEDS: Insulin LISPRO 300 UNITS/3 ML VIAL SUBQ SCH ×4 (09:10→19:40)
[2021-11-02] MEDS: Aspirin Enteric Coated 81 MG Tablet PO SCH (09:10)
[2021-11-02] MEDS: *HR* Ticagrelor 90 MG TABLET PO SCH ×2 (09:10→19:40)
[2021-11-02] MEDS ORDERED: Lidocaine Viscous Oral Soln 15 ML SOLUTION MM PRN (12:29)
[2021-11-02] MEDS ORDERED: 0.9 % Sodium Chloride 500 ML IVC SCH (12:30)
[2021-11-02] MEDS: *HR* Midazolam HCl 5 MG/5 ML VIAL IVP SCH ×3 (13:30→13:40)
[2021-11-02] MEDS: *HR* FentaNYL (PF) 100 MCG/2 ML VIAL IVP PRN ×3 (13:30→13:40)
[2021-11-03] MEDS: Albuterol 2.5 MG/3 ML NEBULIZER IH SCH ×4 (00:22→12:23)
[2021-11-03] MEDS: 0.9 % Sodium Chloride 1,000 ML IVC SCH (06:02)
[2021-11-03] MEDS: *HR* Heparin 5,000 UNIT/ML VIAL SQ SCH (06:03)
[2021-11-03 07:58] VITALS: TEMP 98.5
[2021-11-03] MEDS: Insulin LISPRO 300 UNITS/3 ML VIAL SUBQ SCH ×2 (08:00→11:39)
[2021-11-03] MEDS: Gabapentin 100 MG CAPSULE PO SCH (08:22)
[2021-11-03] MEDS: Isosorbide MONOnitrate (24 HR) 60 MG TAB.ER.24H PO SCH (08:22)
[2021-11-03] MEDS: Aspirin Enteric Coated 81 MG Tablet PO SCH (08:22)
[2021-11-03] MEDS: Ranolazine 500 MG TAB.ER.12H PO SCH (08:22)
[2021-11-03] MEDS: carvediloL 25 MG TABLET PO SCH (08:22)
[2021-11-03] MEDS: *HR* Ticagrelor 90 MG TABLET PO SCH (08:23)
[2021-11-03 09:26] VITALS: BP 138/80; PULSE 75; O2SAT 94
[2021-11-03 11:22] LABS: Influenza A PCR Negative (Negative); Influenza B PCR Negative (Negative); Resp. Syncytial Virus PCR Negative (Negative)
[2021-11-03 11:33] LABS: SARS-CoV-2 by PCR (In House) Negative (Negative)
== END 2021-11-03 14:00 | DRG 45 ==
LOC: 3BNU 20:41 → EMEROOARM 20:41 → SUATTDRO 10-30 02:18 → 3BNU 10-30 03:41
PROVIDERS: ADMIT Internal Medicine; ATTEND Internal Medicine

== ENCOUNTER 2022-01-05 14:31 | Observation (INO) ==
[2022-01-05] MEDS ORDERED: Isovue-370 500 ML BOTTLE IVP ONE (15:12)
[2022-01-05 15:36] LABS: Basophils # 0.1 K/mcL (0.0-0.2); Basophils % 0.5 %; Eosinophils # 0.9 K/mcL (0.0-0.6); Eosinophils % 7.8 %; Hematocrit 31.8 % (35.3-44.9); Hemoglobin 9.9 g/dL (11.5-15.4); Immature Granulocytes % 0.5 % (0-4); Lymphocytes # 1.8 K/mcL (0.6-4.6); Lymphocytes % 16.4 %; Mean Corpuscular HGB Conc 31.1 g/dL (31.6-35.5); Mean Corpuscular Volume 86.9 fL (83.0-100.0); Mean Platelet Volume 10.3 fL (9.4-12.4); Monocytes # 0.7 K/mcL (0.0-1.3); Monocytes % 6.1 %; Neutrophils # 7.5 K/mcL (1.6-8.9); Platelet Count 266 K/mcL (140-400); Red Blood Count 3.66 M/mcL (3.82-4.97); Red Cell Distribution Width 18.7 % (11.5-14.5); Segmented Neutrophils % 68.7 %
[2022-01-05 15:59] LABS: BUN/Creatinine Ratio 21 (6-26); Blood Urea Nitrogen 40 mg/dL (8-23); Calcium 8.8 mg/dL (8.6-10.3); Carbon Dioxide 21 mEq/L (23-29); Chloride 102 mEq/L (98-107); Glucose 295 mg/dL (70-105); Osmolality,Calculated 293 (280-300); Potassium 4.1 mEq/L (3.5-5.1); Sodium 131 mEq/L (136-145); eGFR For African Americans 32 (> 60); eGFR For Non-African Americans 27 (> 60)
[2022-01-05 16:00] LABS: Troponin I < 0.03 ng/mL (< 0.04)
[2022-01-05] MEDS ORDERED: Ondansetron 4 MG/2 ML VIAL IVP PRN (17:15)
[2022-01-05] MEDS ORDERED: Acetaminophen 325 MG TABLET PO PRN (17:15)
[2022-01-05] MEDS ORDERED: Naloxone 0.4 MG/ML INJ IVP PRN (17:15)
[2022-01-05] MEDS ORDERED: Melatonin 3 MG TABLET PO PRN (17:15)
[2022-01-05] MEDS: cefTRIAXone 1,000 MG in 0.9 % Sodium Chloride 10 ML IVP SCH (18:43)
[2022-01-05] MEDS: predniSONE 20 MG TABLET PO SCH (20:58)
[2022-01-05] MEDS: Ranolazine 500 MG TAB.ER.12H PO SCH (20:59)
[2022-01-05] MEDS: Azithromycin 250 MG TABLET PO SCH (20:59)
[2022-01-05] MEDS: *HR* Ticagrelor 90 MG TABLET PO SCH (20:59)
[2022-01-05] MEDS ORDERED: cephALEXin 500 MG CAPSULE PO SCH (21:00)
[2022-01-05] MEDS: Ipratropium/Albuterol Neb 3 ML IH SCH (21:26)
[2022-01-06] MEDS: Ipratropium/Albuterol Neb 3 ML IH SCH ×5 (00:18→19:36)
[2022-01-06 05:16] LABS: Hematocrit 34.6 % (35.3-44.9); Hemoglobin 10.6 g/dL (11.5-15.4); Mean Corpuscular HGB Conc 30.6 g/dL (31.6-35.5); Mean Corpuscular Hemoglobin 26.2 pg (28.0-33.3); Mean Corpuscular Volume 85.6 fL (83.0-100.0); Mean Platelet Volume 10.2 fL (9.4-12.4); Platelet Count 293 K/mcL (140-400); Red Blood Count 4.04 M/mcL (3.82-4.97); Red Cell Distribution Width 18.7 % (11.5-14.5); White Blood Count 12.4 K/mcL (4.3-11.1)
[2022-01-06 05:41] LABS: Calcium 9.2 mg/dL (8.6-10.3); Potassium 4.6 mEq/L (3.5-5.1)
[2022-01-06 06:26] LABS: Estimated Average Glucose 243 mg/dl; Hemoglobin A1C 10.1 %
[2022-01-06] MEDS: Azithromycin 250 MG TABLET PO SCH (08:23)
[2022-01-06] MEDS: cefTRIAXone 1,000 MG in 0.9 % Sodium Chloride 10 ML IVP SCH (08:23)
[2022-01-06] MEDS: *HR* Ticagrelor 90 MG TABLET PO SCH ×2 (10:20→20:14)
[2022-01-06] MEDS: predniSONE 20 MG TABLET PO SCH (10:21)
[2022-01-06] MEDS: Isosorbide MONOnitrate (24 HR) 60 MG TAB.ER.24H PO SCH (10:21)
[2022-01-06] MEDS: Ranolazine 500 MG TAB.ER.12H PO SCH ×2 (10:21→20:13)
[2022-01-06] MEDS: carvediloL 25 MG TABLET PO SCH ×2 (10:24→17:00)
[2022-01-06] MEDS ORDERED: *HR* Dextrose 50 % in Water (Syg) 50 ML SYRINGE IVP PRN ×2 (19:35→19:36)
[2022-01-06] MEDS ORDERED: D5% in Water 1,000 ML IVC PRN ×2 (19:35→19:36)
[2022-01-06] MEDS ORDERED: Dextrose 4 GM Chewable Tablets PO PRN ×4 (19:35→19:36)
[2022-01-06] MEDS ORDERED: Insulin LISPRO 300 UNITS/3 ML VIAL SUBQ SCH (21:00)
[2022-01-07] MEDS: Ipratropium/Albuterol Neb 3 ML IH SCH ×2 (03:33→08:15)
[2022-01-07] MEDS: cefTRIAXone 1,000 MG in 0.9 % Sodium Chloride 10 ML IVP SCH (08:37)
[2022-01-07] MEDS: Insulin LISPRO 300 UNITS/3 ML VIAL SUBQ SCH ×2 (08:37→13:27)
[2022-01-07] MEDS: predniSONE 20 MG TABLET PO SCH (08:38)
[2022-01-07] MEDS: Isosorbide MONOnitrate (24 HR) 60 MG TAB.ER.24H PO SCH (08:38)
[2022-01-07] MEDS: Azithromycin 250 MG TABLET PO SCH (08:38)
[2022-01-07] MEDS: Ranolazine 500 MG TAB.ER.12H PO SCH (08:38)
[2022-01-07] MEDS: *HR* Ticagrelor 90 MG TABLET PO SCH (08:38)
[2022-01-07] MEDS: carvediloL 25 MG TABLET PO SCH (08:38)
[2022-01-07 12:02] VITALS: BP 171/88; PULSE 66; TEMP 98; O2SAT 97
== END 2022-01-07 13:51 | disposition home or self-care (01) ==
LOC: 3BNU 14:31 → EMEROOARM 14:31 → SUATTDRO 17:17 → 3BNU 17:58
PROVIDERS: ADMIT Internal Medicine; ATTEND Internal Medicine

== ENCOUNTER 2022-02-26 18:28 | Observation (INO) ==
[2022-02-26] MEDS ORDERED: Aspirin 81 MG TAB.CHEW PO ONE (20:15)
[2022-02-26 20:29] LABS: Basophils % 0.4 %; Eosinophils # 0.3 K/mcL (0.0-0.6); Eosinophils % 2.5 %; Hematocrit 33.7 % (35.3-44.9); Hemoglobin 10.5 g/dL (11.5-15.4); Immature Granulocytes % 0.4 % (0-4); Lymphocytes # 1.6 K/mcL (0.6-4.6); Lymphocytes % 14.6 %; Mean Corpuscular HGB Conc 31.2 g/dL (31.6-35.5); Mean Corpuscular Hemoglobin 26.4 pg (28.0-33.3); Mean Corpuscular Volume 84.9 fL (83.0-100.0); Mean Platelet Volume 10.9 fL (9.4-12.4); Monocytes # 0.8 K/mcL (0.0-1.3); Monocytes % 6.8 %; Neutrophils # 8.4 K/mcL (1.6-8.9); Platelet Count 247 K/mcL (140-400); Red Blood Count 3.97 M/mcL (3.82-4.97); Red Cell Distribution Width 16.1 % (11.5-14.5); Segmented Neutrophils % 75.3 %; White Blood Count 11.2 K/mcL (4.3-11.1)
[2022-02-26] MEDS: Nitroglycerin 0.4 MG TAB.SUBL SL PRN ×4 (20:32→20:47)
[2022-02-26 20:52] LABS: BUN/Creatinine Ratio 17 (6-26); Blood Urea Nitrogen 24 mg/dL (8-23); Calcium 8.9 mg/dL (8.6-10.3); Carbon Dioxide 24 mEq/L (23-29); Chloride 99 mEq/L (98-107); Glucose 324 mg/dL (70-105); Osmolality,Calculated 289 (280-300); Potassium 4.1 mEq/L (3.5-5.1); Sodium 131 mEq/L (136-145); Troponin I < 0.03 ng/mL (< 0.04); eGFR For African Americans 45 (> 60); eGFR For Non-African Americans 37 (> 60)
[2022-02-26] MEDS ORDERED: *HR* FentaNYL (PF) 100 MCG/2 ML VIAL IVP STA (21:26)
[2022-02-26] MEDS ORDERED: Perflutren Lipid Microsphere 1.3 ML in 0.9 % Sodium Chloride 8.7 ML IVP PRN (23:10)
[2022-02-26] MEDS ORDERED: Naloxone 0.4 MG/ML INJ IVP PRN (23:10)
[2022-02-26] MEDS ORDERED: Melatonin 3 MG TABLET PO PRN (23:10)
[2022-02-26] MEDS ORDERED: Ondansetron 4 MG/2 ML VIAL IVP PRN (23:10)
[2022-02-26] MEDS ORDERED: Nitroglycerin 0.4 MG TAB.SUBL SL PRN (23:14)
[2022-02-26] MEDS ORDERED: Morphine Sulfate 2 MG/ML SYRINGE IVP PRN (23:15)
[2022-02-26] MEDS ORDERED: D5% in Water 1,000 ML IVC PRN (23:27)
[2022-02-26] MEDS ORDERED: *HR* Dextrose 50 % in Water (Syg) 50 ML SYRINGE IVP PRN (23:27)
[2022-02-26] MEDS ORDERED: Dextrose Gel 15 GM/37.5 ML TUBE PO PRN ×2 (23:27)
[2022-02-27] MEDS: Insulin LISPRO 300 UNITS/3 ML VIAL SUBQ SCH ×4 (00:53→17:33)
[2022-02-27] MEDS: Insulin DETEMIR 100 UNIT/ML X5UNITS SUBQ SCH ×2 (00:57→22:18)
[2022-02-27 02:24] LABS: Hematocrit 37.3 % (35.3-44.9); Hemoglobin 11.6 g/dL (11.5-15.4); Mean Corpuscular HGB Conc 31.1 g/dL (31.6-35.5); Mean Corpuscular Hemoglobin 26.5 pg (28.0-33.3); Mean Corpuscular Volume 85.4 fL (83.0-100.0); Mean Platelet Volume 10.7 fL (9.4-12.4); Platelet Count 221 K/mcL (140-400); Red Blood Count 4.37 M/mcL (3.82-4.97); Red Cell Distribution Width 16.2 % (11.5-14.5); White Blood Count 10.7 K/mcL (4.3-11.1)
[2022-02-27] MEDS: *HR* Heparin 5,000 UNIT/ML VIAL SQ SCH ×3 (06:09→22:18)
[2022-02-27 09:58] LABS: Troponin I 0.04 ng/mL (< 0.04)
[2022-02-27] MEDS ORDERED: Nitroglycerin 0.4 MG TAB.SUBL SL PRN (10:44)
[2022-02-27] MEDS: *HR* Ticagrelor 90 MG TABLET PO SCH ×2 (11:23→22:18)
[2022-02-27] MEDS ORDERED: Regadenoson 0.4 MG/5 ML SYRINGE IVP ONE (11:51)
[2022-02-27 13:53] LABS: Magnesium 1.7 mg/dL (1.6-2.6)
[2022-02-27] MEDS: carvediloL 25 MG TABLET PO SCH (17:33)
[2022-02-27] MEDS: Ranolazine 500 MG TAB.ER.12H PO SCH (22:18)
[2022-02-28] MEDS: Insulin LISPRO 300 UNITS/3 ML VIAL SUBQ SCH ×5 (00:50→23:25)
[2022-02-28] MEDS: Acetaminophen 325 MG TABLET PO PRN ×2 (05:39→20:57)
[2022-02-28] MEDS: *HR* Heparin 5,000 UNIT/ML VIAL SQ SCH ×3 (05:40→20:57)
[2022-02-28] MEDS ORDERED: tiZANidine 4 MG TABLET PO PRN (08:18)
[2022-02-28] MEDS ORDERED: Isosorbide MONOnitrate (24 HR) 60 MG TAB.ER.24H PO SCH (09:00)
[2022-02-28] MEDS: Aspirin 81 MG TAB.CHEW PO SCH (09:44)
[2022-02-28] MEDS: carvediloL 25 MG TABLET PO SCH ×2 (09:44→17:08)
[2022-02-28] MEDS: *HR* Ticagrelor 90 MG TABLET PO SCH ×2 (09:44→20:56)
[2022-02-28] MEDS: Gabapentin 100 MG CAPSULE PO SCH ×2 (09:44→20:57)
[2022-02-28] MEDS: Isosorbide MONOnitrate (24 HR) 60 MG TAB.ER.24H PO SCH (09:45)
[2022-02-28] MEDS: Ranolazine 500 MG TAB.ER.12H PO SCH ×2 (09:45→20:57)
[2022-02-28 11:16] LABS: Calcium 8.7 mg/dL (8.6-10.3); Potassium 4.3 mEq/L (3.5-5.1)
[2022-02-28] MEDS: Insulin DETEMIR 100 UNIT/ML X5UNITS SUBQ SCH (20:56)
[2022-03-01 04:37] LABS: Calcium 8.7 mg/dL (8.6-10.3); Magnesium 1.8 mg/dL (1.6-2.6); Potassium 4.1 mEq/L (3.5-5.1)
[2022-03-01] MEDS: 0.9 % Sodium Chloride 1,000 ML IVC SCH ×2 (06:02→11:56)
[2022-03-01] MEDS: *HR* Heparin 5,000 UNIT/ML VIAL SQ SCH ×3 (06:03→20:49)
[2022-03-01] MEDS: Insulin LISPRO 300 UNITS/3 ML VIAL SUBQ SCH ×3 (06:03→18:39)
[2022-03-01] MEDS: Gabapentin 100 MG CAPSULE PO SCH ×2 (09:46→20:48)
[2022-03-01] MEDS: Ranolazine 500 MG TAB.ER.12H PO SCH ×2 (09:47→20:48)
[2022-03-01] MEDS: *HR* Ticagrelor 90 MG TABLET PO SCH ×2 (09:47→20:48)
[2022-03-01] MEDS: Isosorbide MONOnitrate (24 HR) 60 MG TAB.ER.24H PO SCH (09:47)
[2022-03-01] MEDS: carvediloL 25 MG TABLET PO SCH ×2 (09:51→18:38)
[2022-03-01] MEDS: Aspirin 81 MG TAB.CHEW PO SCH (09:51)
[2022-03-01] MEDS ORDERED: ISOVUE-370 200 ML INFUS..BTL ONE (12:59)
[2022-03-01] MEDS ORDERED: Heparin 1,000 UNITS/500 mL 500 ML ONE (12:59)
[2022-03-01] MEDS ORDERED: *HR* FentaNYL (PF) 100 MCG/2 ML VIAL ONE (12:59)
[2022-03-01] MEDS ORDERED: 0.9 % Sodium Chloride 2,000 ML ONE (12:59)
[2022-03-01] MEDS ORDERED: *HR* Midazolam HCl 2 MG/2 ML VIAL ONE (12:59)
[2022-03-01] MEDS ORDERED: *HR* Heparin 10,000 UNIT/10 ML VIAL ONE (12:59)
[2022-03-01] MEDS ORDERED: Nitroglycerin 1,000 MCG/5 ML VIAL IV ONE (13:00)
[2022-03-01] MEDS: Insulin DETEMIR 100 UNIT/ML X5UNITS SUBQ SCH (20:49)
[2022-03-02] MEDS: Insulin LISPRO 300 UNITS/3 ML VIAL SUBQ SCH ×2 (00:02→05:53)
[2022-03-02] MEDS: Acetaminophen 325 MG TABLET PO PRN (05:53)
[2022-03-02] MEDS: *HR* Heparin 5,000 UNIT/ML VIAL SQ SCH (05:53)
[2022-03-02 06:22] LABS: Calcium 8.8 mg/dL (8.6-10.3); Magnesium 1.9 mg/dL (1.6-2.6); Potassium 4.6 mEq/L (3.5-5.1)
[2022-03-02 06:36] VITALS: BP 163/82; PULSE 70; TEMP 97.5; O2SAT 96
[2022-03-02] MEDS: Gabapentin 100 MG CAPSULE PO SCH (08:10)
[2022-03-02] MEDS: *HR* Ticagrelor 90 MG TABLET PO SCH (08:10)
[2022-03-02] MEDS: Ranolazine 500 MG TAB.ER.12H PO SCH (08:10)
[2022-03-02] MEDS: Aspirin 81 MG TAB.CHEW PO SCH (08:10)
[2022-03-02] MEDS: Isosorbide MONOnitrate (24 HR) 60 MG TAB.ER.24H PO SCH (08:10)
[2022-03-02] MEDS: carvediloL 25 MG TABLET PO SCH (08:10)
[2022-03-02] MEDS: 0.9 % Sodium Chloride 1,000 ML IVC SCH (08:34)
== END 2022-03-02 11:36 | disposition home or self-care (01) ==
LOC: EMEROOARM 18:28 → 3BNU 18:28 → SUATTDRO 23:14 → 3BNU 23:49
PROVIDERS: ADMIT Internal Medicine; ATTEND Internal Medicine

== ENCOUNTER 2022-06-16 04:54 | Observation (INO) ==
[2022-06-16] MEDS ORDERED: Morphine Sulfate 2 MG/ML SYRINGE IVP ONE ×2 (05:36→10:14)
[2022-06-16 05:38] LABS: Basophils % 0.4 %; Eosinophils # 0.3 K/mcL (0.0-0.6); Eosinophils % 2.8 %; Hematocrit 35.1 % (35.3-44.9); Hemoglobin 10.5 g/dL (11.5-15.4); Immature Granulocytes % 0.4 % (0-4); Lymphocytes # 1.7 K/mcL (0.6-4.6); Lymphocytes % 16.5 %; Mean Corpuscular HGB Conc 29.9 g/dL (31.6-35.5); Mean Corpuscular Hemoglobin 24.9 pg (28.0-33.3); Mean Corpuscular Volume 83.4 fL (83.0-100.0); Mean Platelet Volume 10.4 fL (9.4-12.4); Monocytes # 0.7 K/mcL (0.0-1.3); Monocytes % 6.4 %; Platelet Count 281 K/mcL (140-400); Red Blood Count 4.21 M/mcL (3.82-4.97); Red Cell Distribution Width 17.2 % (11.5-14.5); Segmented Neutrophils % 73.5 %; White Blood Count 10.4 K/mcL (4.3-11.1)
[2022-06-16 05:40] LABS: Neutrophils # 7.6 K/mcL (1.6-8.9)
[2022-06-16 06:27] LABS: INR 1.1; Prothrombin Time 12.2 Seconds (9.4-12.1)
[2022-06-16] MEDS ORDERED: Iopamidol - 370 500 ML MLS IVP ONE ×2 (06:37→07:10)
[2022-06-16 07:49] LABS: Calcium 9.3 mg/dL (8.6-10.3); Potassium 4.2 mEq/L (3.5-5.1)
[2022-06-16] MEDS ORDERED: Aspirin 325 MG TABLET PO ONE (10:13)
[2022-06-16] MEDS ORDERED: Ondansetron 4 MG/2 ML VIAL IVP PRN (13:17)
[2022-06-16] MEDS ORDERED: Naloxone 0.4 MG/ML INJ IVP PRN (13:17)
[2022-06-16] MEDS ORDERED: *HR* Dextrose 50 % in Water (Syg) 50 ML SYRINGE IVP PRN (13:47)
[2022-06-16] MEDS ORDERED: Dextrose Gel 15 GM/37.5 ML TUBE PO PRN ×2 (13:47)
[2022-06-16] MEDS ORDERED: D5% in Water 1,000 ML IVC PRN (13:47)
[2022-06-16 14:43] LABS: Magnesium 2.1 mg/dL (1.6-2.6)
[2022-06-16 14:44] LABS: Troponin I < 0.03 ng/mL (< 0.04)
[2022-06-16] MEDS: Insulin LISPRO 300 UNITS/3 ML VIAL SUBQ SCH ×2 (17:19→23:50)
[2022-06-16] MEDS: *HR* Heparin 5,000 UNIT/ML VIAL SQ SCH ×2 (17:20→22:06)
[2022-06-17 00:36] LABS: Bacteria,Urine Few per hpf (None-Few); Bilirubin,Urine Negative (Negative); Blood,Urine Trace (Negative); Budding Yeast,Urine Few per hpf (None Seen); Calcium Oxalate Crystals,Urine Present per hpf; Clarity,Urine Clear (Clear); Color,Urine Light-Yellow (Yellow); Glucose,Urine (UA) >=1000 mg/dL (Normal); Ketones,Urine Negative (Negative); Leukocyte Esterase,Urine Large (Negative); Mucus,Urine Few per lpf (None-Few); Nitrite,Urine Negative (Negative); PH,Urine 5.5 pH Units (5.0-8.0); Protein,Urine Trace mg/dL (Neg-Trace); RBC,Urine 50-100 per hpf (0-3); Specific Gravity,Urine > 1.030 (1.010-1.025); Squamous Epithelial Cell,Urine Few per hpf (None-Few); Urobilinogen,Urine Normal (Normal); WBC,Urine TNTC per hpf (0-3)
[2022-06-17 01:19] LABS: Basophils # 0.1 K/mcL (0.0-0.2); Basophils % 0.6 %; Eosinophils # 0.3 K/mcL (0.0-0.6); Eosinophils % 3.7 %; Hematocrit 38.2 % (35.3-44.9); Hemoglobin 11.4 g/dL (11.5-15.4); Immature Granulocytes % 0.2 % (0-4); Lymphocytes # 1.2 K/mcL (0.6-4.6); Lymphocytes % 13.7 %; Mean Corpuscular HGB Conc 29.8 g/dL (31.6-35.5); Mean Corpuscular Hemoglobin 25.3 pg (28.0-33.3); Mean Corpuscular Volume 84.7 fL (83.0-100.0); Mean Platelet Volume 10.2 fL (9.4-12.4); Monocytes # 0.6 K/mcL (0.0-1.3); Monocytes % 6.2 %; Neutrophils # 6.7 K/mcL (1.6-8.9); Platelet Count 271 K/mcL (140-400); Red Blood Count 4.51 M/mcL (3.82-4.97); Red Cell Distribution Width 17.4 % (11.5-14.5); Segmented Neutrophils % 75.6 %; White Blood Count 8.9 K/mcL (4.3-11.1)
[2022-06-17 01:27] LABS: INR 1.1; Prothrombin Time 12.7 Seconds (9.4-12.1)
[2022-06-17 01:34] LABS: Albumin 3.7 g/dL (3.5-5.7); Albumin/Globulin Ratio 0.9 (1.1-2.2); Bilirubin,Total 0.4 mg/dL (0.3-1.0); Calcium 9.3 mg/dL (8.6-10.3); Chol/HDL Ratio 5.6 (0-4.9); Globulin 3.9 g/dL (2.4-3.5); Total Protein 7.6 g/dL (6.4-8.9)
[2022-06-17 01:37] LABS: Estimated Average Glucose 269 mg/dl
[2022-06-17] MEDS: Nitroglycerin 0.4 MG TAB.SUBL SL PRN (03:58)
[2022-06-17] MEDS: *HR* Heparin 5,000 UNIT/ML VIAL SQ SCH ×3 (05:44→21:05)
[2022-06-17] MEDS: Insulin LISPRO 300 UNITS/3 ML VIAL SUBQ SCH ×3 (05:45→16:45)
[2022-06-17] MEDS: Aspirin Enteric Coated 81 MG Tablet PO SCH (07:36)
[2022-06-17] MEDS: Acetaminophen 325 MG TABLET PO PRN ×2 (07:36→21:04)
[2022-06-17] MEDS ORDERED: Morphine Sulfate 2 MG/ML SYRINGE IVP ONE (08:52)
[2022-06-18] MEDS: Insulin LISPRO 300 UNITS/3 ML VIAL SUBQ SCH ×4 (00:14→17:56)
[2022-06-18] MEDS: *HR* Heparin 5,000 UNIT/ML VIAL SQ SCH ×3 (05:34→19:48)
[2022-06-18] MEDS: Aspirin Enteric Coated 81 MG Tablet PO SCH (08:14)
[2022-06-18] MEDS ORDERED: Moderna COVID-19 Vac ,BIVALENT BOOSTER 50 MCG/0.5 ML VIAL IM ONE (15:53)
[2022-06-18] MEDS: carvediloL 25 MG TABLET PO SCH (17:56)
[2022-06-18] MEDS: *HR* Ticagrelor 90 MG TABLET PO SCH (19:48)
[2022-06-18] MEDS: Ranolazine 500 MG TAB.ER.12H PO SCH (19:48)
[2022-06-19] MEDS: Insulin LISPRO 300 UNITS/3 ML VIAL SUBQ SCH ×4 (00:17→17:50)
[2022-06-19] MEDS: *HR* Heparin 5,000 UNIT/ML VIAL SQ SCH ×3 (06:05→21:08)
[2022-06-19] MEDS: carvediloL 25 MG TABLET PO SCH ×2 (09:14→16:23)
[2022-06-19] MEDS: Ranolazine 500 MG TAB.ER.12H PO SCH ×2 (09:14→21:07)
[2022-06-19] MEDS: Aspirin Enteric Coated 81 MG Tablet PO SCH (09:14)
[2022-06-19] MEDS: *HR* Ticagrelor 90 MG TABLET PO SCH ×2 (09:14→21:08)
[2022-06-19] MEDS: Isosorbide MONOnitrate (24 HR) 60 MG TAB.ER.24H PO SCH (09:14)
[2022-06-19] MEDS: Melatonin 3 MG TABLET PO PRN (21:07)
[2022-06-20] MEDS: Insulin LISPRO 300 UNITS/3 ML VIAL SUBQ SCH ×4 (04:58→17:02)
[2022-06-20] MEDS: *HR* Heparin 5,000 UNIT/ML VIAL SQ SCH ×3 (06:02→20:58)
[2022-06-20] MEDS: Isosorbide MONOnitrate (24 HR) 60 MG TAB.ER.24H PO SCH (09:08)
[2022-06-20] MEDS: Aspirin Enteric Coated 81 MG Tablet PO SCH (09:08)
[2022-06-20] MEDS: Ranolazine 500 MG TAB.ER.12H PO SCH ×2 (09:08→20:57)
[2022-06-20] MEDS: carvediloL 25 MG TABLET PO SCH ×2 (09:08→17:02)
[2022-06-20] MEDS: *HR* Ticagrelor 90 MG TABLET PO SCH ×2 (09:08→20:57)
[2022-06-20] MEDS: Melatonin 3 MG TABLET PO PRN (20:58)
[2022-06-21] MEDS: Insulin LISPRO 300 UNITS/3 ML VIAL SUBQ SCH ×5 (01:39→20:12)
[2022-06-21] MEDS: *HR* Heparin 5,000 UNIT/ML VIAL SQ SCH ×3 (06:26→20:09)
[2022-06-21] MEDS: Isosorbide MONOnitrate (24 HR) 60 MG TAB.ER.24H PO SCH (08:18)
[2022-06-21] MEDS: *HR* Ticagrelor 90 MG TABLET PO SCH ×2 (08:18→20:10)
[2022-06-21] MEDS: Ranolazine 500 MG TAB.ER.12H PO SCH ×2 (08:18→20:09)
[2022-06-21] MEDS: carvediloL 25 MG TABLET PO SCH ×2 (08:18→17:13)
[2022-06-21] MEDS: Aspirin Enteric Coated 81 MG Tablet PO SCH (08:18)
[2022-06-21] MEDS: Nitroglycerin 0.4 MG TAB.SUBL SL PRN ×2 (17:22→17:48)
[2022-06-21] MEDS: Melatonin 3 MG TABLET PO PRN (20:10)
[2022-06-21] MEDS: Acetaminophen 325 MG TABLET PO PRN (22:05)
[2022-06-22] MEDS: *HR* Heparin 5,000 UNIT/ML VIAL SQ SCH ×2 (06:56→12:45)
[2022-06-22] MEDS: Insulin LISPRO 300 UNITS/3 ML VIAL SUBQ SCH ×2 (06:58→12:45)
[2022-06-22] MEDS: *HR* Ticagrelor 90 MG TABLET PO SCH (07:53)
[2022-06-22] MEDS: Aspirin Enteric Coated 81 MG Tablet PO SCH (07:53)
[2022-06-22] MEDS: Isosorbide MONOnitrate (24 HR) 60 MG TAB.ER.24H PO SCH (07:54)
[2022-06-22] MEDS: Ranolazine 500 MG TAB.ER.12H PO SCH (07:54)
[2022-06-22] MEDS: carvediloL 25 MG TABLET PO SCH (07:54)
[2022-06-22 11:27] VITALS: BP 99/64; PULSE 71; TEMP 97.7; O2SAT 95
== END 2022-06-22 14:50 ==
LOC: 3BNU 04:54 → EMEROOARM 04:54 → SUATTDRO 12:41 → 3BNU 13:49
PROVIDERS: ADMIT General Practice; ATTEND Internal Medicine